=== PATIENT | male | born 1955 | race African-American/Black ===

== ENCOUNTER 2018-02-10 09:37 | Emergency (ER) | payer MEDICARE, MEDICAID ==
[~2018-02-10] VITALS: Ht 180.3 cm; Wt 81.6 kg
[2018-02-10 09:49] VITALS: BP 136/88
[2018-02-10 10:22] LABS: Eosinophils # (auto) 0 uL; Mean Corpuscular Volume 77.6 fL (80.0-100.0); Red Cell Distribution Width 17.9 % (11.8-14.3); White Blood Cell 4.2 10^3/uL (4.4-10.8)
[2018-02-10 10:24] LABS: Basophils # (auto) 0.2 uL; Basophils % (auto) 5.5 % (0.0-2.0); Eosinophils % (auto) 1.1 % (0.0-7.0); Hemoglobin 12.3 g/dL (13.5-17.5); Lymphocytes # (auto) 1.7 uL; Lymphocytes % (auto) 39.3 % (10.0-50.0); Mean Corpuscular Hemoglobin 24.5 pg (28.0-32.0); Mean Corpuscular Hgb Conc. 31.5 g/dL (32.0-36.0); Monocytes # (auto) 0.4 uL; Monocytes % (auto) 8.5 % (0.0-12.0); Neutrophils # (auto) 1.9 uL; Neutrophils % (auto) 45.6 % (37.0-80.0); Nucleated Red Blood Cells % 0.1 %; Platelet Count (auto) 222 10^3/uL (140-450); Red Blood Cells 5.02 10^6/uL (4.5-5.90)
[2018-02-10 10:44] LABS: Alanine Aminotransferase 32 U/L (16-61); Alkaline Phosphatase 141 U/L (45-117); Anion Gap 11 (5-15); Aspartate Aminotransferase 25 U/L (15-37); BUN/Creatinine Ratio 9.2; Bilirubin, Total 0.5 mg/dL (0.2-1.0); Blood Urea Nitrogen 13 mg/dL (7-18); Calcium 8.7 mg/dL (8.5-10.1); Carbon Dioxide 21 mmol/L (21-32); Chloride 104 mmol/L (98-107); GFR African American 65 mL/min; GFR Non-African American 54 mL/min; Glucose 254 mg/dL (74-106); Magnesium 1.9 mg/dL (1.6-2.6); Potassium 4.1 mmol/L (3.5-5.1); Sodium 136 mmol/L (136-145); Total Protein 8.1 g/dL (6.4-8.2)
== END 2018-02-10 15:03 | disposition left against medical advice (07) ==
LOC: ER 09:37
DX: M25.512 Pain in left shoulder (principal); E11.9 Type 2 diabetes mellitus without complications; I10 Essential (primary) hypertension; E78.5 Hyperlipidemia, unspecified
CPT/HCPCS: 36415; 71046; 80053; 83735; 84484; 85025; 93005

== ENCOUNTER 2018-02-28 09:48 | Inpatient (IN) | payer MEDICARE, MEDICAID ==
[~2018-02-28] VITALS: Ht 180.3 cm; Wt 96.7 kg
[2018-02-28 10:45] LABS: Basophils # (auto) 0 uL; Eosinophils # (auto) 0 uL; Eosinophils % (auto) 0.1 % (0.0-7.0); Red Cell Distribution Width 18.2 % (11.8-14.3)
[2018-02-28 10:49] LABS: Basophils % (auto) 0.3 % (0.0-2.0); Hematocrit 39.7 % (41.0-53.0); Hemoglobin 12.6 g/dL (13.5-17.5); Lymphocytes # (auto) 1.1 uL; Lymphocytes % (auto) 14.9 % (10.0-50.0); Mean Corpuscular Hemoglobin 24.6 pg (28.0-32.0); Mean Corpuscular Hgb Conc. 31.8 g/dL (32.0-36.0); Mean Corpuscular Volume 77.1 fL (80.0-100.0); Monocytes # (auto) 0.9 uL; Monocytes % (auto) 11.1 % (0.0-12.0); Neutrophils # (auto) 5.6 uL; Neutrophils % (auto) 73.6 % (37.0-80.0); Platelet Count (auto) 185 10^3/uL (140-450); Red Blood Cells 5.15 10^6/uL (4.5-5.90); White Blood Cell 7.7 10^3/uL (4.4-10.8)
[2018-02-28 11:09] LABS: Albumin 3.8 g/dL (3.4-5.0); BUN/Creatinine Ratio 12.7; Calcium 9.2 mg/dL (8.5-10.1); Potassium 4.5 mmol/L (3.5-5.1); Total Protein 8.5 g/dL (6.4-8.2)
[2018-02-28 11:11] LABS: Bilirubin, Total 0.3 mg/dL (0.2-1.0)
[2018-02-28] MEDS ORDERED: SODIUM CHLORIDE 0.9% 1,000 ML IV ONE (11:55)
[2018-02-28] MEDS ORDERED: HYDROcodone-ACET 10/325MG TAB PO ONE (12:00)
[2018-02-28] MEDS ORDERED: InsuLIN REG 1unit/0.01ml Soln (100units/ml) IV ONE (12:00)
[2018-02-28 12:27] LABS: INR 1.03 (0.9-1.15); Partial Thromboplastin Time 25.8 sec (22.64-33.71); Prothrombin Time 11.2 sec (9.37-12.3)
[2018-02-28] MEDS ORDERED: NITROGLYCERIN 0.4 MG SL TAB SL PRN (14:30)
[2018-02-28] MEDS ORDERED: DEXTROSE (50%) 50ML SYRG IV PRN (14:30)
[2018-02-28] MEDS ORDERED: LORazepam 0.5 MG TAB PO PRN (14:30)
[2018-02-28] MEDS ORDERED: MORPHINE SULFATE 4 MG/ML SYR/VIAL IV PRN ×2 (14:30)
[2018-02-28] MEDS ORDERED: PANTOPRAZOLE 40 MG TAB PO ONE (14:30)
[2018-02-28] MEDS ORDERED: TEMAZEPAM 15 MG CAP PO PRN (14:30)
[2018-02-28] MEDS ORDERED: LACTULOSE 20Gm/30ML SOLN PO PRN (14:30)
[2018-02-28] MEDS ORDERED: PROMETHAZINE HCL 25 MG/ML 1ML IV PRN (14:30)
[2018-02-28] MEDS ORDERED: ACETAMINOPHEN 500 MG TAB PO PRN (14:30)
[2018-02-28] MEDS: HYDROcodone-ACET 5/325MG TAB PO PRN (16:27)
[2018-02-28] MEDS: InsuLIN REG 1unit/0.01ml Soln (100units/ml) SC SCH ×3 (16:28→23:59)
[2018-02-28] MEDS: ACCU-CHEK COMFORT CURVE STRIP VI SCH ×3 (16:28→23:59)
[2018-02-28 17:00] VITALS: BP 145/77
[2018-02-28 22:00] VITALS: BP 131/85
[2018-03-01 02:42] LABS: Urine Bacteria NONE SEEN /hpf (None Seen); Urine Blood Negative /uL (Negative); Urine Specific Gravity 1.027 (1.001-1.035); Urine WBC <1 /hpf (0 - 3)
[2018-03-01] MEDS: InsuLIN REG 1unit/0.01ml Soln (100units/ml) SC SCH ×3 (04:12→12:19)
[2018-03-01] MEDS: SODIUM CHLORIDE 0.9% 1,000 ML IV SCH ×3 (04:12→10:19)
[2018-03-01] MEDS: ACCU-CHEK COMFORT CURVE STRIP VI SCH ×3 (04:12→12:00)
[2018-03-01 05:00] VITALS: BP 122/80
[2018-03-01] MEDS: HYDROcodone-ACET 5/325MG TAB PO PRN (06:14)
[2018-03-01 07:17] LABS: BUN/Creatinine Ratio 16.3; Bilirubin, Total 0.2 mg/dL (0.2-1.0); Calcium 8.4 mg/dL (8.5-10.1); Potassium 4.1 mmol/L (3.5-5.1)
[2018-03-01 09:00] VITALS: BP 132/90
[2018-03-01] MEDS ORDERED: PANTOPRAZOLE 40 MG TAB PO SCH (10:00)
[2018-03-01] MEDS ORDERED: ENOXAPARIN SOD 40 MG/0.4 ML SYRINGE SC SCH (10:00)
[2018-03-01 13:00] VITALS: BP 126/88
== END 2018-03-01 14:20 | disposition home or self-care (01) | DRG 896 ==
LOC: ER 09:50 → TELE 09:51 → TELE-CENTR 09:52
PROVIDERS: ADMIT Internal Medicine; ATTEND Internal Medicine
DX: F11.23 Opioid dependence with withdrawal (principal); N17.0 Acute kidney failure with tubular necrosis; E44.0 Moderate protein-calorie malnutrition; E11.65 Type 2 diabetes mellitus with hyperglycemia; E66.3 Overweight; D17.9 Benign lipomatous neoplasm, unspecified; K59.00 Constipation, unspecified; E86.0 Dehydration; F41.9 Anxiety disorder, unspecified; G47.00 Insomnia, unspecified; E78.5 Hyperlipidemia, unspecified; M25.512 Pain in left shoulder; I10 Essential (primary) hypertension; Z68.29 Body mass index [BMI] 29.0-29.9, adult; Z82.49 Family history of ischemic heart disease and other diseases of the circulatory system; Z87.11 Personal history of peptic ulcer disease; Z91.19 Patient's noncompliance with other medical treatment and regimen; Z90.79 Acquired absence of other genital organ(s)
CPT/HCPCS: 36415; 71045; 80053; 80061; 81001; 82962; 83036; 83735; 85025; 85610; 85652; 85730; 93005; 94761; 96361; 96374; J1815

== ENCOUNTER 2021-04-12 08:56 | Emergency (ER) | payer MEDICARE, MEDICAID ==
[~2021-04-12] VITALS: Ht 180.3 cm; Wt 94.8 kg
[2021-04-12] MEDS ORDERED: ONDANSETRON ODT 4 MG TAB PO ONE (11:45)
[2021-04-12] MEDS ORDERED: HYDROcodone-ACET 7.5/325MG TAB PO ONE (11:45)
[2021-04-12 12:12] VITALS: BP 111/79
[2021-04-12 12:23] LABS: Basophils # (auto) 0 10 ^3/uL (0-0.2); Basophils % (auto) 0.4 % (0.0-2.0); Eosinophils # (auto) 0 10 ^3/uL (0-0.8); Eosinophils % (auto) 0.4 % (0.0-7.0); Hematocrit 31.8 % (41.0-53.0); Hemoglobin 10.9 g/dL (13.5-17.5); Lymphocytes % (auto) 36.7 % (10.0-50.0); Mean Corpuscular Hemoglobin 30.2 pg (28.0-32.0); Mean Corpuscular Hgb Conc. 34.2 g/dL (32.0-36.0); Mean Corpuscular Volume 88.3 fL (80.0-100.0); Monocytes # (auto) 0.5 10 ^3/uL (0-1.3); Monocytes % (auto) 9.5 % (0.0-12.0); Neutrophils # (auto) 2.9 10 ^3/uL (1.6-8.6); Nucleated Red Blood Cells % 0.1 %; Platelet Count (auto) 149 10^3/uL (140-450); Red Cell Distribution Width 13.8 % (11.8-14.3); White Blood Cell 5.4 10^3/uL (4.4-10.8)
[2021-04-12 12:34] LABS: Albumin 3.6 g/dL (3.4-5.0); Anion Gap 10 (5-15); Blood Urea Nitrogen 18 mg/dL (7-18); Calcium 8.5 mg/dL (8.5-10.1); Carbon Dioxide 22 mmol/L (21-32); Chloride 105 mmol/L (98-107); Glucose 158 mg/dL (74-106); Sodium 137 mmol/L (136-145)
[2021-04-12 12:37] LABS: Alanine Aminotransferase 21 U/L (16-61); Aspartate Aminotransferase 31 U/L (15-37); BUN/Creatinine Ratio 15.9; GFR African American 84 mL/min; GFR Non-African American 69 mL/min; Total Protein 7.4 g/dL (6.4-8.2)
[2021-04-12 12:40] LABS: Alkaline Phosphatase 51 U/L (45-117); Bilirubin, Total 0.4 mg/dL (0.2-1.0)
== END 2021-04-12 13:19 | disposition home or self-care (01) ==
LOC: ER 08:56
DX: J18.9 Pneumonia, unspecified organism (principal); E11.65 Type 2 diabetes mellitus with hyperglycemia; E78.5 Hyperlipidemia, unspecified
CPT/HCPCS: 36415; 70450; 71045; 80053; 83880; 84484; 85025; 93005; 99285; Q0162

== ENCOUNTER 2022-09-30 04:51 | Inpatient (IN) | payer BC, MEDICAID ==
[~2022-09-30] VITALS: Ht 172.7 cm; Wt 93.8 kg
[2022-09-30] MEDS ORDERED: SODIUM CHLORIDE 0.9% 2,000 ML IV ONE (05:30)
[2022-09-30] MEDS ORDERED: SODIUM CHLORIDE 0.9% 1,000 ML IV ONE (07:30)
[2022-09-30 07:56] LABS: Albumin 3.3 g/dL (3.4-5.0); Calcium 9.2 mg/dL (8.5-10.1)
[2022-09-30 07:59] LABS: BUN/Creatinine Ratio 17.4; Bilirubin, Total 0.3 mg/dL (0.2-1.0)
[2022-09-30 08:05] LABS: Basophils # (auto) 0 10 ^3/uL (0-0.2); Basophils % (auto) 0.5 % (0.0-2.0); Eosinophils # (auto) 0 10 ^3/uL (0-0.8); Eosinophils % (auto) 0.1 % (0.0-7.0); Hematocrit 32.8 % (41.0-53.0); Hemoglobin 10.3 g/dL (13.5-17.5); Lymphocytes # (auto) 1.2 10 ^3/uL (0.4-5.4); Lymphocytes % (auto) 14.3 % (10.0-50.0); Mean Corpuscular Hemoglobin 23.1 pg (28.0-32.0); Mean Corpuscular Hgb Conc. 31.5 g/dL (32.0-36.0); Mean Corpuscular Volume 73.5 fL (80.0-100.0); Monocytes # (auto) 0.5 10 ^3/uL (0-1.3); Monocytes % (auto) 5.3 % (0.0-12.0); Neutrophils # (auto) 6.9 10 ^3/uL (1.6-8.6); Neutrophils % (auto) 79.8 % (37.0-80.0); Red Blood Cells 4.46 10^6/uL (4.5-5.90); Red Cell Distribution Width 18.4 % (11.8-14.3); White Blood Cell 8.7 10^3/uL (4.4-10.8)
[2022-09-30] MEDS ORDERED: INSULIN LISPRO (HUMAN) 100 UNITS/ML ML SC ONE (12:00)
[2022-09-30] MEDS ORDERED: MORPHINE SULFATE INJ 2 MG/ml SYRG IV PRN (13:15)
[2022-09-30] MEDS ORDERED: DOCUSATE SOD 100 MG CAP PO PRN (13:15)
[2022-09-30] MEDS ORDERED: DEXTROSE (50%) 50ML SYRG IV PRN (13:15)
[2022-09-30] MEDS ORDERED: ONDANSETRON HCL 4 MG/2 ML VIAL IV PRN (13:15)
[2022-09-30] MEDS ORDERED: ACETAMINOPHEN 325 MG TAB PO PRN (13:15)
[2022-09-30] MEDS ORDERED: NITROGLYCERIN 0.4 MG SL TAB SL PRN (13:15)
[2022-09-30] MEDS: SODIUM CHLORIDE 0.9% 1,000 ML IV SCH (13:42)
[2022-09-30 15:08] LABS: Hematocrit 32.4 % (41.0-53.0); Hemoglobin 10.1 g/dL (13.5-17.5)
[2022-09-30 15:21] LABS: INR 1.03 (0.9-1.15); Partial Thromboplastin Time 22.1 sec (24.6-33.4)
[2022-09-30] MEDS: InsuLIN REG 1unit/0.01ml Soln (100units/ml) SC SCH (17:34)
[2022-09-30] MEDS: ACCU-CHEK COMFORT CURVE STRIP VI SCH (17:34)
[2022-09-30] MEDS: SUCRALFATE 1 GM/10 ML ORAL SUSP PO SCH ×2 (17:34→21:32)
[2022-09-30] MEDS: HYDROcodone-ACET 5/325MG TAB PO PRN (21:13)
[2022-09-30] MEDS ORDERED: PANTOPRAZOLE 40 MG/10 ML VIAL INJ IV SCH (22:00)
[2022-09-30] MEDS ORDERED: METF-371 PO (22:05)
[2022-09-30] MEDS ORDERED: BENA40TA8 PO (22:05)
[2022-09-30] MEDS ORDERED: AMLO-496 PO (22:05)
[2022-09-30 23:09] VITALS: BP 129/82
[2022-10-01] MEDS: SODIUM CHLORIDE 0.9% 1,000 ML IV SCH ×2 (02:35→15:52)
[2022-10-01] MEDS: SUCRALFATE 1 GM/10 ML ORAL SUSP PO SCH (04:49)
[2022-10-01] MEDS: ACCU-CHEK COMFORT CURVE STRIP VI SCH ×5 (04:52→23:49)
[2022-10-01] MEDS: InsuLIN REG 1unit/0.01ml Soln (100units/ml) SC SCH ×5 (04:55→23:55)
[2022-10-01 07:37] LABS: Basophils # (auto) 0 10 ^3/uL (0-0.2); Eosinophils # (auto) 0 10 ^3/uL (0-0.8); Eosinophils % (auto) 0.2 % (0.0-7.0); Lymphocytes # (auto) 2.3 10 ^3/uL (0.4-5.4); Red Cell Distribution Width 18.6 % (11.8-14.3); White Blood Cell 6.6 10^3/uL (4.4-10.8)
[2022-10-01 07:39] LABS: Basophils % (auto) 0.3 % (0.0-2.0); Hematocrit 29.2 % (41.0-53.0); Hemoglobin 9.1 g/dL (13.5-17.5); Lymphocytes % (auto) 35.3 % (10.0-50.0); Mean Corpuscular Hgb Conc. 31.2 g/dL (32.0-36.0); Mean Corpuscular Volume 73.9 fL (80.0-100.0); Monocytes # (auto) 0.6 10 ^3/uL (0-1.3); Monocytes % (auto) 9.8 % (0.0-12.0); Neutrophils # (auto) 3.6 10 ^3/uL (1.6-8.6); Neutrophils % (auto) 54.4 % (37.0-80.0); Nucleated Red Blood Cells % 0.1 %; Red Blood Cells 3.95 10^6/uL (4.5-5.90)
[2022-10-01 08:00] VITALS: BP 121/86
[2022-10-01 09:33] LABS: Albumin 3.1 g/dL (3.4-5.0); Calcium 8.6 mg/dL (8.5-10.1); Potassium 3.9 mmol/L (3.5-5.1)
[2022-10-01 09:42] LABS: BUN/Creatinine Ratio 16.3; Bilirubin, Total 0.2 mg/dL (0.2-1.0); Total Protein 6.8 g/dL (6.4-8.2)
[2022-10-01] MEDS ORDERED: SODIUM CHLORIDE LOCK 10 ML ONE (10:03)
[2022-10-01] MEDS ORDERED: NALOXONE HCL 0.4 MG/ML VIAL ONE (10:03)
[2022-10-01] MEDS ORDERED: diphenhdrAMINE HCL 50 MG/1 ML VL ONE (10:03)
[2022-10-01] MEDS ORDERED: FLUMAZENIL 0.1 MG/ML INJ 10ML MDV IV ONE (10:03)
[2022-10-01] MEDS ORDERED: LIDOCAINE VISCOUS 2% 15ML UD ONE (10:03)
[2022-10-01] MEDS: MIDAZOLAM HCL 5 MG/ML-1ML VIAL ONE ×2 (10:42→10:46)
[2022-10-01] MEDS: fentaNYL CITRATE 100 MCG/2 ML VL ONE ×2 (10:42→10:46)
[2022-10-01 13:24] VITALS: BP 138/87
[2022-10-01 17:00] VITALS: BP 135/84
[2022-10-01 20:00] VITALS: BP 149/85
[2022-10-01] MEDS: PANTOPRAZOLE 40 MG TAB PO SCH (21:15)
[2022-10-01] MEDS: HYDROcodone-ACET 5/325MG TAB PO PRN (21:21)
[2022-10-01 22:00] VITALS: BP 149/85
[2022-10-02 05:00] VITALS: BP 143/92
[2022-10-02] MEDS: SODIUM CHLORIDE 0.9% 1,000 ML IV SCH ×2 (05:15→08:13)
[2022-10-02] MEDS: ACCU-CHEK COMFORT CURVE STRIP VI SCH ×2 (06:00→11:48)
[2022-10-02] MEDS: InsuLIN REG 1unit/0.01ml Soln (100units/ml) SC SCH ×2 (06:01→11:51)
[2022-10-02 09:00] VITALS: BP 134/89
[2022-10-02] MEDS: PANTOPRAZOLE 40 MG TAB PO SCH (09:44)
[2022-10-02] MEDS ORDERED: PANT40T PO (12:21)
[2022-10-02] MEDS ORDERED: FERR-7 PO (12:21)
[2022-10-02 12:43] VITALS: BP 131/85
== END 2022-10-02 15:10 | disposition home or self-care (01) | DRG 368 ==
LOC: EDBD 04:51 → EDUNIT# 04:51 → ER 04:51 → TELE 13:08 → TELE-WESTW 22:29
PROVIDERS: ADMIT Nurse Practitioner Family; ATTEND Family Medicine
PROC: 0DJ08ZZ Inspection of Upper Intestinal Tract, Via Natural or Artificial Opening Endoscopic (ICD-10-PCS; principal; 2022-10-01 10:40)
DX: K20.91 Esophagitis, unspecified with bleeding (principal); K29.71 Gastritis, unspecified, with bleeding; K31.811 Angiodysplasia of stomach and duodenum with bleeding; D62 Acute posthemorrhagic anemia; E44.1 Mild protein-calorie malnutrition; E86.1 Hypovolemia; K44.9 Diaphragmatic hernia without obstruction or gangrene; E11.9 Type 2 diabetes mellitus without complications; E78.00 Pure hypercholesterolemia, unspecified; I10 Essential (primary) hypertension; I95.9 Hypotension, unspecified; E66.01 Morbid (severe) obesity due to excess calories; Z20.822 Contact with and (suspected) exposure to COVID-19; Z68.31 Body mass index [BMI] 31.0-31.9, adult; Z82.3 Family history of stroke; Z82.49 Family history of ischemic heart disease and other diseases of the circulatory system; Z79.84 Long term (current) use of oral hypoglycemic drugs
CPT/HCPCS: 36415; 43235; 71045; 74176; 80053; 82962; 83036; 83690; 83735; 84484; 85014; 85018; 85025; 85610; 85730; 86850; 86900; 86901; 87426; 93005; 96361; 96372; 96374; 96375; C9113; G0378; J1815; J2250; J2405

== ENCOUNTER 2023-08-03 08:49 | Inpatient (IN) | payer BC, MEDICAID ==
[~2023-08-03] VITALS: Ht 180.3 cm; Wt 92.9 kg
[~2023-08-03 08:49] MED LIST: AMLO1TAB23 PO; BENA40TA70 PO; FERR-7 PO; METF-371 PO; PANT40T PO
[2023-08-03 09:46] LABS: Basophils # (auto) 0 10 ^3/uL (0-0.2); Eosinophils # (auto) 0 10 ^3/uL (0-0.8); Nucleated Red Blood Cells % 0.1 %
[2023-08-03 09:47] LABS: Basophils % (auto) 0.2 % (0.0-2.0); Eosinophils % (auto) 0.1 % (0.0-7.0); Hematocrit 33.7 % (41.0-53.0); Hemoglobin 10.3 g/dL (13.5-17.5); Lymphocytes # (auto) 1.3 10 ^3/uL (0.4-5.4); Mean Corpuscular Hgb Conc. 30.7 g/dL (32.0-36.0); Mean Corpuscular Volume 81.3 fL (80.0-100.0); Monocytes # (auto) 0.4 10 ^3/uL (0-1.3); Monocytes % (auto) 4.8 % (0.0-12.0); Neutrophils # (auto) 6.8 10 ^3/uL (1.6-8.6); Neutrophils % (auto) 79.9 % (37.0-80.0); Red Blood Cells 4.14 10^6/uL (4.5-5.90); Red Cell Distribution Width 18.2 % (11.8-14.3); White Blood Cell 8.5 10^3/uL (4.4-10.8)
[2023-08-03] MEDS ORDERED: LABETALOL HCL 5 MG/ML 4ML SYRINGE IV ONE (10:00)
[2023-08-03 10:03] LABS: Alanine Aminotransferase 19 U/L (7-40); Albumin 4.2 g/dL (3.2-4.8); Alkaline Phosphatase 79 U/L (46-116); Anion Gap 8 (5-15); Aspartate Aminotransferase 14 U/L (13-40); Blood Urea Nitrogen 24 mg/dL (9-23); Calcium 9.2 mg/dL (8.5-10.1); Carbon Dioxide 24 mmol/L (20-30); Chloride 107 mmol/L (98-107); Glucose 279 mg/dL (74-106); Potassium 4.6 mmol/L (3.5-5.1); Sodium 139 mmol/L (136-145)
[2023-08-03 10:04] LABS: Bilirubin, Total 0.4 mg/dL (0.2-1.0); Total Protein 7.4 g/dL (5.7-8.2)
[2023-08-03 10:47] VITALS: PULSE 108; RESP 23; O2SAT 97
[2023-08-03 11:28] LABS: INR 1.08 (0.9-1.15); Partial Thromboplastin Time < 20.0 SEC (24.5-34.5); Prothrombin Time 11.3 sec (9.3-11.8)
[2023-08-03] MEDS ORDERED: ONDANSETRON HCL 4 MG/2 ML VIAL IV PRN (12:00)
[2023-08-03] MEDS ORDERED: hydrALAZINE HCL 20 MG/ML VL IV PRN (12:00)
[2023-08-03] MEDS: SODIUM CHLORIDE 0.9% 1,000 ML IV SCH ×2 (12:00→21:53)
[2023-08-03] MEDS ORDERED: DOCUSATE SOD 100 MG CAP PO PRN (12:00)
[2023-08-03] MEDS: MORPHINE SULFATE INJ 2 MG/ml SYRG IV PRN ×2 (14:31→21:38)
[2023-08-03] MEDS ORDERED: METOCLOPRAMIDE HCL 5MG/ml INJ 2ml VIAL IV PRN (16:15)
[2023-08-03] MEDS: PANTOPRAZOLE 40mg/50ML NS AE 50 ML IV SCH ×2 (16:15→21:39)
[2023-08-03] MEDS ORDERED: PANTOPRAZOLE 40mg/50ML NS AE 50 ML IV SCH (16:15)
[2023-08-03] MEDS ORDERED: PANTOPRAZOLE 80 MG in SODIUM CHL 0.9% 100 ML IV ONE ×4 (16:15)
[2023-08-03] MEDS ORDERED: LORazepam 2MG/ML-1ML VIAL IV PRN (16:45)
[2023-08-03 18:42] LABS: Hematocrit 25.6 % (41.0-53.0)
[2023-08-03] MEDS ORDERED: PIPERACILLIN-TAZOB 3.375GM 100 ML IV ONE (20:00)
[2023-08-03] MEDS ORDERED: PIPERACILLIN-TAZOB 3.375GM 100 ML IV SCH (20:00)
[2023-08-03 20:23] LABS: Hematocrit 30.7 % (41.0-53.0); Hemoglobin 9.6 g/dL (13.5-17.5)
[2023-08-03] MEDS ORDERED: PANTOPRAZOLE 40 MG/10 ML VIAL INJ IV SCH (22:00)
[2023-08-03 22:11] LABS: % Iron Saturation 6.8 % (20-55)
[2023-08-03 22:13] LABS: INR 1.11 (0.9-1.15); Prothrombin Time 11.6 sec (9.3-11.8)
[2023-08-03 22:15] LABS: Ferritin 5.7 ng/mL (22-322); Folate (Folic Acid) 12.86 ng/mL (>5.38)
[2023-08-03 23:24] VITALS: PULSE 105; RESP 21; O2SAT 96
[2023-08-04] VITALS (8 sets, daily range): BP systolic 119–129; BP diastolic 72–83; PULSE 93–104; RESP 18–20; TEMP 97.5–98.4; O2SAT 95–98
[2023-08-04 00:36] LABS: Hemoglobin 8.8 g/dL (13.5-17.5)
[2023-08-04 00:38] LABS: Hematocrit 27.7 % (41.0-53.0)
[2023-08-04] MEDS ORDERED: DEXTROSE (50%) 50ML SYRG IV ONE (02:45)
[2023-08-04 03:23] LABS: Hematocrit 26.4 % (41.0-53.0); Hemoglobin 8.5 g/dL (13.5-17.5)
[2023-08-04] MEDS: PANTOPRAZOLE 40mg/50ML NS AE 50 ML IV SCH ×6 (03:24→22:29)
[2023-08-04] MEDS ORDERED: PNEUMOCOCCAL VACC POLYS 25 MCG/0.5 ML VIAL IM ONE (04:45)
[2023-08-04] MEDS: SODIUM CHLORIDE 0.9% 1,000 ML IV SCH ×3 (04:48→21:11)
[2023-08-04] MEDS: PIPERACILLIN-TAZOB 3.375GM 100 ML IV SCH ×3 (04:48→19:36)
[2023-08-04] MEDS ORDERED: InsuLIN REG 1unit/0.01ml Soln (100units/ml) SC ONE (07:00)
[2023-08-04] MEDS ORDERED: ACCU-CHEK COMFORT CURVE STRIP VI ONE (07:00)
[2023-08-04 10:53] LABS: Basophils # (auto) 0 10 ^3/uL (0-0.2); Eosinophils # (auto) 0 10 ^3/uL (0-0.8); Mean Corpuscular Hemoglobin 24.5 pg (28.0-32.0); Nucleated Red Blood Cells % 0.1 %; White Blood Cell 6.4 10^3/uL (4.4-10.8)
[2023-08-04 10:55] LABS: Basophils % (auto) 0.4 % (0.0-2.0); Eosinophils % (auto) 0.5 % (0.0-7.0); Hematocrit 26.8 % (41.0-53.0); Hemoglobin 8.4 g/dL (13.5-17.5); Lymphocytes # (auto) 1.8 10 ^3/uL (0.4-5.4); Lymphocytes % (auto) 28.3 % (10.0-50.0); Mean Corpuscular Hgb Conc. 31.5 g/dL (32.0-36.0); Mean Corpuscular Volume 77.8 fL (80.0-100.0); Monocytes # (auto) 0.8 10 ^3/uL (0-1.3); Monocytes % (auto) 11.8 % (0.0-12.0); Neutrophils # (auto) 3.8 10 ^3/uL (1.6-8.6); Red Blood Cells 3.45 10^6/uL (4.5-5.90); Red Cell Distribution Width 18.6 % (11.8-14.3)
[2023-08-04 11:10] LABS: Alanine Aminotransferase 11 U/L (7-40); Albumin 3.9 g/dL (3.2-4.8); Alkaline Phosphatase 56 U/L (46-116); Anion Gap 5 (5-15); Aspartate Aminotransferase 16 U/L (13-40); BUN/Creatinine Ratio 20.9 (10.0-20.0); Bilirubin, Total 0.3 mg/dL (0.2-1.0); Blood Urea Nitrogen 33 mg/dL (9-23); Calcium 8.7 mg/dL (8.7-10.4); Carbon Dioxide 28 mmol/L (20-30); Chloride 112 mmol/L (98-107); Glucose 217 mg/dL (74-106); Potassium 4.4 mmol/L (3.5-5.1); Total Protein 6.5 g/dL (5.7-8.2)
[2023-08-04 11:11] LABS: Sodium 145 mmol/L (136-145)
[2023-08-04 22:00] LABS: Hematocrit 24.8 % (41.0-53.0)
[2023-08-04 22:01] LABS: Hemoglobin 7.9 g/dL (13.5-17.5)
[2023-08-04] MEDS: SUCRALFATE 1 GM/10 ML ORAL SUSP PO SCH (22:28)
[2023-08-05] VITALS (7 sets, daily range): BP systolic 125–148; BP diastolic 74–84; PULSE 74–100; RESP 16–20; TEMP 98.3–98.8; O2SAT 96–100
[2023-08-05] MEDS: PANTOPRAZOLE 40mg/50ML NS AE 50 ML IV SCH ×5 (01:48→23:32)
[2023-08-05] MEDS: PIPERACILLIN-TAZOB 3.375GM 100 ML IV SCH ×3 (03:05→19:49)
[2023-08-05] MEDS: SODIUM CHLORIDE 0.9% 1,000 ML IV SCH ×3 (05:40→22:20)
[2023-08-05] MEDS: SUCRALFATE 1 GM/10 ML ORAL SUSP PO SCH ×4 (06:24→21:37)
[2023-08-05] MEDS ORDERED: IRON SUCROSE COMPLEX 200 MG in SODIUM CHL 0.9% 100 ML IV SCH (12:00)
[2023-08-05] MEDS: SODIUM FERR GLUC 62.5MG/5ML 125 MG in SODIUM CHL 0.9% 100 ML IV SCH (12:55)
[2023-08-05] MEDS: MORPHINE SULFATE INJ 2 MG/ml SYRG IV PRN (20:44)
[2023-08-05] MEDS ORDERED: ACETAMINOPHEN 325 MG TAB PO PRN (21:30)
[2023-08-06] VITALS (8 sets, daily range): BP systolic 137–175; BP diastolic 54–93; PULSE 81–108; RESP 17–28; TEMP 98.4–99.7; O2SAT 93–98
[2023-08-06] MEDS: PIPERACILLIN-TAZOB 3.375GM 100 ML IV SCH ×2 (03:56→11:58)
[2023-08-06] MEDS: PANTOPRAZOLE 40mg/50ML NS AE 50 ML IV SCH ×4 (03:56→20:39)
[2023-08-06] MEDS: SUCRALFATE 1 GM/10 ML ORAL SUSP PO SCH ×4 (05:46→21:15)
[2023-08-06] MEDS: SODIUM CHLORIDE 0.9% 1,000 ML IV SCH ×3 (06:55→23:44)
[2023-08-06] MEDS ORDERED: LIDOCAINE VISCOUS 2% 15ML UD ONE (08:09)
[2023-08-06] MEDS ORDERED: SODIUM CHLORIDE LOCK 10 ML ONE (08:09)
[2023-08-06] MEDS ORDERED: MIDAZOLAM HCL 5 MG/ML-1ML VIAL ONE (08:10)
[2023-08-06 09:07] LABS: Hepatitis B Surface Antigen Negative (Negative)
[2023-08-06] MEDS: diphenhdrAMINE HCL 50 MG/1 ML VL ONE ×2 (10:31→10:33)
[2023-08-06] MEDS: fentaNYL CITRATE 100 MCG/2 ML VL ONE ×2 (10:31→10:35)
[2023-08-06] MEDS ORDERED: CYANOCOBALAMIN (B-12) 1000 MCG/1 ML VIAL IM ONE (11:45)
[2023-08-06] MEDS: SODIUM FERR GLUC 62.5MG/5ML 125 MG in SODIUM CHL 0.9% 100 ML IV SCH (12:43)
[2023-08-06 12:47] LABS: Hepatitis C Antibody Reactive (Negative)
[2023-08-06 15:01] LABS: Urine Bacteria NONE SEEN /hpf (None Seen); Urine Blood Negative /uL (Negative); Urine Clarity Clear (Clear); Urine Color Colorless (Yellow); Urine Hyaline Cast FEW /lpf (0 - 2); Urine Protein, UAD 1+ (Negative); Urine Specific Gravity 1.014 (1.001-1.035); Urine Urobilinogen Normal (Negative); Urine WBC <1 /hpf (0 - 3)
[2023-08-06 15:38] LABS: Amphetamine Screen, Urine Neg (NEGATIVE); Barbiturate Scree,Urine Neg (NEGATIVE); Benzodiazephine Screen, Urine Pos (NEGATIVE); Cannabinoid Screen, Urine Neg (NEGATIVE); Cocaine Screen, Urine Neg (NEGATIVE); Opiate Scree,Urine Neg (NEGATIVE); Phencyclidine Screen, Urine Neg (NEGATIVE)
[2023-08-07] MEDS: PANTOPRAZOLE 40mg/50ML NS AE 50 ML IV SCH ×2 (01:01→05:19)
[2023-08-07 05:00] VITALS: BP 142/84; PULSE 91; RESP 20; TEMP 98.6; O2SAT 98
[2023-08-07] MEDS: SUCRALFATE 1 GM/10 ML ORAL SUSP PO SCH ×4 (06:02→21:22)
[2023-08-07 06:09] LABS: Basophils # (auto) 0 10 ^3/uL (0-0.2); Basophils % (auto) 0.1 % (0.0-2.0); Eosinophils # (auto) 0 10 ^3/uL (0-0.8); Eosinophils % (auto) 0.1 % (0.0-7.0); Hematocrit 24.1 % (41.0-53.0); Hemoglobin 7.6 g/dL (13.5-17.5); Lymphocytes # (auto) 1.8 10 ^3/uL (0.4-5.4); Lymphocytes % (auto) 19.8 % (10.0-50.0); Mean Corpuscular Hemoglobin 24.8 pg (28.0-32.0); Mean Corpuscular Hgb Conc. 31.6 g/dL (32.0-36.0); Mean Corpuscular Volume 78.7 fL (80.0-100.0); Monocytes # (auto) 0.7 10 ^3/uL (0-1.3); Monocytes % (auto) 8.1 % (0.0-12.0); Neutrophils # (auto) 6.5 10 ^3/uL (1.6-8.6); Neutrophils % (auto) 71.9 % (37.0-80.0); Nucleated Red Blood Cells % 0.1 %; Red Blood Cells 3.07 10^6/uL (4.5-5.90); Red Cell Distribution Width 17.8 % (11.8-14.3)
[2023-08-07 06:12] LABS: Alanine Aminotransferase 12 U/L (7-40); Albumin 3.6 g/dL (3.2-4.8); Alkaline Phosphatase 55 U/L (46-116); Anion Gap 6 (5-15); Aspartate Aminotransferase 28 U/L (13-40); BUN/Creatinine Ratio 4.9 (10.0-20.0); Blood Urea Nitrogen 6 mg/dL (9-23); Calcium 8.3 mg/dL (8.7-10.4); Carbon Dioxide 21 mmol/L (20-30); Chloride 112 mmol/L (98-107); Glucose 147 mg/dL (74-106); Magnesium 1.5 mg/dL (1.6-2.6); Potassium 3.6 mmol/L (3.5-5.1); Sodium 139 mmol/L (136-145)
[2023-08-07 06:13] LABS: Bilirubin, Total 0.4 mg/dL (0.2-1.0)
[2023-08-07 06:48] LABS: Triglycerides 81 mg/dL (< 150)
[2023-08-07 06:49] LABS: LDL Cholesterol 70 mg/dL (< 100)
[2023-08-07 06:51] LABS: Cholesterol 121 mg/dL (< 200); HDL Cholesterol 34 mg/dL (40-59)
[2023-08-07] MEDS ORDERED: MAGNESIUM SULFATE 1GM/100ML 100 ML IV ONE (07:30)
[2023-08-07] MEDS ORDERED: POTASSIUM EFFERVESENT TAB 25 MEQ PO ONE (07:30)
[2023-08-07 08:00] VITALS: PULSE 82; PULSE 94; RESP 20; O2SAT 97
[2023-08-07] MEDS: SODIUM CHLORIDE 0.9% 1,000 ML IV SCH ×2 (08:44→12:04)
[2023-08-07 09:00] VITALS: BP 146/80; PULSE 80; RESP 20; TEMP 98.6; O2SAT 99
[2023-08-07] MEDS ORDERED: amLODIPine BESYLATE 5 MG TAB PO SCH (10:00)
[2023-08-07] MEDS ORDERED: ERGOCALCIFEROL 50,000 UNIT(1.25MG) CAP PO SCH (10:00)
[2023-08-07] MEDS: MORPHINE SULFATE INJ 2 MG/ml SYRG IV PRN (10:01)
[2023-08-07] MEDS: PANTOPRAZOLE 40 MG TAB PO SCH (10:02)
[2023-08-07] MEDS ORDERED: GOLYTELY 4L KIT PO ONE (12:45)
[2023-08-07] MEDS: SODIUM FERR GLUC 62.5MG/5ML 125 MG in SODIUM CHL 0.9% 100 ML IV SCH (12:52)
[2023-08-07 13:00] VITALS: BP 154/86; PULSE 94; RESP 20; TEMP 98.5; O2SAT 97
[2023-08-07 17:00] VITALS: BP 158/86; PULSE 79; RESP 18; TEMP 98.2; O2SAT 99
[2023-08-07 20:00] VITALS: PULSE 96; RESP 18; O2SAT 98
[2023-08-07] MEDS ORDERED: POLYETHYLENE GLYCOL 17 GM PWDR PO ONE (21:15)
[2023-08-08] MEDS: SODIUM CHLORIDE 0.9% 1,000 ML IV SCH (04:37)
[2023-08-08 05:27] LABS: Basophils # (auto) 0 10 ^3/uL (0-0.2); Basophils % (auto) 0.5 % (0.0-2.0); Eosinophils # (auto) 0.1 10 ^3/uL (0-0.8); Eosinophils % (auto) 1.3 % (0.0-7.0); Hematocrit 23.4 % (41.0-53.0); Hemoglobin 7.4 g/dL (13.5-17.5); Lymphocytes # (auto) 1.8 10 ^3/uL (0.4-5.4); Lymphocytes % (auto) 30.2 % (10.0-50.0); Mean Corpuscular Hemoglobin 25.1 pg (28.0-32.0); Mean Corpuscular Hgb Conc. 31.8 g/dL (32.0-36.0); Monocytes # (auto) 0.6 10 ^3/uL (0-1.3); Monocytes % (auto) 10.2 % (0.0-12.0); Neutrophils # (auto) 3.4 10 ^3/uL (1.6-8.6); Neutrophils % (auto) 57.8 % (37.0-80.0); Nucleated Red Blood Cells % 0.2 %; Red Blood Cells 2.96 10^6/uL (4.5-5.90); Red Cell Distribution Width 17.8 % (11.8-14.3); White Blood Cell 5.9 10^3/uL (4.4-10.8)
[2023-08-08 05:34] LABS: Anion Gap 9 (5-15); Carbon Dioxide 21 mmol/L (20-30); Chloride 109 mmol/L (98-107); Potassium 3.7 mmol/L (3.5-5.1); Sodium 139 mmol/L (136-145)
[2023-08-08 05:35] LABS: Calcium 8.5 mg/dL (8.5-10.1)
[2023-08-08 05:39] LABS: Glucose 130 mg/dL (74-106)
[2023-08-08 05:40] LABS: BUN/Creatinine Ratio 5.4 (10.0-20.0); Blood Urea Nitrogen 6 mg/dL (9-23)
[2023-08-08] MEDS: SUCRALFATE 1 GM/10 ML ORAL SUSP PO SCH ×4 (06:12→21:19)
[2023-08-08 06:51] LABS: Magnesium 1.6 mg/dL (1.6-2.6)
[2023-08-08] MEDS ORDERED: POLYETHYLENE GLYCOL 17 GM PWDR PO ONE (07:00)
[2023-08-08 08:00] VITALS: PULSE 81; RESP 20; O2SAT 97
[2023-08-08 09:00] VITALS: BP 167/93; PULSE 81; RESP 20; TEMP 98.7; O2SAT 97
[2023-08-08] MEDS: amLODIPine BESYLATE 5 MG TAB PO SCH (11:03)
[2023-08-08] MEDS: PANTOPRAZOLE 40 MG TAB PO SCH (11:03)
[2023-08-08 13:00] VITALS: BP 166/78; PULSE 76; RESP 20; TEMP 98.8; O2SAT 96
[2023-08-08] MEDS: SODIUM FERR GLUC 62.5MG/5ML 125 MG in SODIUM CHL 0.9% 100 ML IV SCH (14:13)
[2023-08-08 17:00] VITALS: BP 133/86; PULSE 89; RESP 20; TEMP 98.2; O2SAT 98
[2023-08-08 17:28] LABS: INR 1.15 (0.9-1.15); Partial Thromboplastin Time 31.3 SEC (24.5-34.5)
[2023-08-08 20:00] VITALS: RESP 17; O2SAT 98
[2023-08-08 22:00] VITALS: BP 156/83; PULSE 84; RESP 20; TEMP 97.9; O2SAT 96
[2023-08-09] MEDS: SODIUM CHLORIDE 0.9% 1,000 ML IV SCH ×2 (01:15→21:15)
[2023-08-09 05:00] VITALS: BP 136/85; PULSE 83; RESP 19; TEMP 98.2; O2SAT 97
[2023-08-09] MEDS: SUCRALFATE 1 GM/10 ML ORAL SUSP PO SCH ×4 (06:17→21:50)
[2023-08-09 07:27] LABS: Basophils # (auto) 0 10 ^3/uL (0-0.2); Basophils % (auto) 0.5 % (0.0-2.0); Eosinophils # (auto) 0.1 10 ^3/uL (0-0.8); Lymphocytes # (auto) 1.6 10 ^3/uL (0.4-5.4); Monocytes # (auto) 0.5 10 ^3/uL (0-1.3); Nucleated Red Blood Cells % 0.3 %
[2023-08-09 07:31] LABS: Hematocrit 25.2 % (41.0-53.0); Hemoglobin 7.9 g/dL (13.5-17.5); Lymphocytes % (auto) 30.5 % (10.0-50.0); Mean Corpuscular Hemoglobin 25.6 pg (28.0-32.0); Mean Corpuscular Hgb Conc. 31.4 g/dL (32.0-36.0); Mean Corpuscular Volume 81.5 fL (80.0-100.0); Monocytes % (auto) 9.2 % (0.0-12.0); Neutrophils % (auto) 57.8 % (37.0-80.0); Red Blood Cells 3.09 10^6/uL (4.5-5.90); Red Cell Distribution Width 18.3 % (11.8-14.3); White Blood Cell 5.2 10^3/uL (4.4-10.8)
[2023-08-09 08:07] LABS: Anion Gap 10 (5-15); Carbon Dioxide 21 mmol/L (20-30); Chloride 109 mmol/L (98-107); Potassium 3.7 mmol/L (3.5-5.1); Sodium 140 mmol/L (136-145)
[2023-08-09 08:13] LABS: Glucose 104 mg/dL (74-106)
[2023-08-09 08:16] LABS: BUN/Creatinine Ratio 4.5 (10.0-20.0); Blood Urea Nitrogen < 5 mg/dL (9-23)
[2023-08-09 08:19] LABS: Calcium 8.7 mg/dL (8.5-10.1)
[2023-08-09 08:30] VITALS: BP 143/79; PULSE 73; RESP 20; TEMP 97.7; O2SAT 96
[2023-08-09] MEDS: PANTOPRAZOLE 40 MG TAB PO SCH (09:11)
[2023-08-09] MEDS: amLODIPine BESYLATE 5 MG TAB PO SCH (09:11)
[2023-08-09 09:32] LABS: Magnesium 1.7 mg/dL (1.6-2.6)
[2023-08-09] MEDS ORDERED: BISACODYL 5 MG EC TAB PO ONE ×2 (11:30→17:00)
[2023-08-09 13:00] VITALS: BP 147/79; PULSE 80; RESP 20; TEMP 98.1; O2SAT 96
[2023-08-09] MEDS: SODIUM FERR GLUC 62.5MG/5ML 125 MG in SODIUM CHL 0.9% 100 ML IV SCH (14:00)
[2023-08-09 16:49] VITALS: BP 139/86; PULSE 87; RESP 18; TEMP 98.6; O2SAT 94
[2023-08-09] MEDS ORDERED: POLYETHYLENE GLYCOL 17 GM PWDR PO ONE (17:30)
[2023-08-09 20:00] VITALS: RESP 18
[2023-08-09 21:51] VITALS: BP 107/69; PULSE 97; RESP 18; TEMP 98.5; O2SAT 96
[2023-08-10 05:00] VITALS: BP 146/75; PULSE 81; RESP 17; TEMP 98.2; O2SAT 98
[2023-08-10 05:52] LABS: Basophils # (auto) 0 10 ^3/uL (0-0.2); Basophils % (auto) 0.5 % (0.0-2.0); Eosinophils # (auto) 0.1 10 ^3/uL (0-0.8); Hemoglobin 8.5 g/dL (13.5-17.5); Lymphocytes # (auto) 1.8 10 ^3/uL (0.4-5.4); Mean Corpuscular Volume 82.9 fL (80.0-100.0); Neutrophils # (auto) 2.8 10 ^3/uL (1.6-8.6); White Blood Cell 5.3 10^3/uL (4.4-10.8)
[2023-08-10 05:55] LABS: Eosinophils % (auto) 2.2 % (0.0-7.0); Lymphocytes % (auto) 34.4 % (10.0-50.0); Mean Corpuscular Hgb Conc. 31.3 g/dL (32.0-36.0); Monocytes # (auto) 0.6 10 ^3/uL (0-1.3); Monocytes % (auto) 10.6 % (0.0-12.0); Neutrophils % (auto) 52.3 % (37.0-80.0); Nucleated Red Blood Cells % 0.2 %; Red Blood Cells 3.26 10^6/uL (4.5-5.90); Red Cell Distribution Width 17.8 % (11.8-14.3)
[2023-08-10] MEDS ORDERED: POLYETHYLENE GLYCOL 17 GM PWDR PO ONE (06:00)
[2023-08-10 06:08] LABS: Alanine Aminotransferase 14 U/L (7-40); Alkaline Phosphatase 60 U/L (46-116); Anion Gap 9 (5-15); Aspartate Aminotransferase 27 U/L (13-40); Calcium 8.8 mg/dL (8.7-10.4); Carbon Dioxide 21 mmol/L (20-30); Chloride 109 mmol/L (98-107); Glucose 111 mg/dL (74-106); Magnesium 1.8 mg/dL (1.6-2.6); Potassium 3.7 mmol/L (3.5-5.1); Sodium 139 mmol/L (136-145)
[2023-08-10 06:09] LABS: BUN/Creatinine Ratio 4.5 (10.0-20.0); Bilirubin, Total 0.5 mg/dL (0.2-1.0); Blood Urea Nitrogen < 5 mg/dL (9-23); Total Protein 6.9 g/dL (5.7-8.2)
[2023-08-10] MEDS: SUCRALFATE 1 GM/10 ML ORAL SUSP PO SCH ×2 (06:31→11:30)
[2023-08-10] MEDS ORDERED: CYANOCOBALAMIN (B-12) 1000 MCG/1 ML VIAL IM ONE (07:00)
[2023-08-10 08:32] VITALS: BP 162/93; PULSE 71; RESP 18; TEMP 98.4; O2SAT 98
[2023-08-10] MEDS: PANTOPRAZOLE 40 MG TAB PO SCH (09:04)
[2023-08-10] MEDS: amLODIPine BESYLATE 5 MG TAB PO SCH (09:04)
[2023-08-10] MEDS ORDERED: LIDOCAINE 2% (LOCAL ANESTH.) PF 5ml SDV ONE (11:40)
[2023-08-10] MEDS ORDERED: PROPOFOL 10 MG/ML 20 ML IV ONE ×2 (11:40→12:04)
[2023-08-10] MEDS ORDERED: PANT40TA2 PO (12:10)
[2023-08-10] MEDS ORDERED: FER325T PO (12:10)
[2023-08-10 12:16] VITALS: O2SAT 97
[2023-08-10 13:38] VITALS: BP 162/93; PULSE 95; RESP 16; TEMP 36.9; O2SAT 98
[2023-08-11] MEDS ORDERED: CYANOCOBALAMIN 500 MCG TAB PO SCH (10:00)
== END 2023-08-10 14:08 | disposition home or self-care (01) | DRG 391 ==
LOC: EDBD 08:49 → ER 08:49 → TELE 12:02 → EAST 08-04 03:10 → TELE-EAST 08-04 03:40 → EAST 08-07 15:29
PROVIDERS: ADMIT Internal Medicine; ATTEND Student in an Organized Health Care Education/Training Program
PROC: 05HA33Z Insertion of Infusion Device into Left Brachial Vein, Percutaneous Approach (ICD-10-PCS; 2023-08-05)
PROC: B54NZZA Ultrasonography of Left Upper Extremity Veins, Guidance (ICD-10-PCS; 2023-08-05)
PROC: 0DB68ZX Excision of Stomach, Via Natural or Artificial Opening Endoscopic, Diagnostic (ICD-10-PCS; 2023-08-06)
PROC: 0DB98ZX Excision of Duodenum, Via Natural or Artificial Opening Endoscopic, Diagnostic (ICD-10-PCS; principal; 2023-08-06 10:23)
PROC: 0DBN8ZX Excision of Sigmoid Colon, Via Natural or Artificial Opening Endoscopic, Diagnostic (ICD-10-PCS; 2023-08-10)
DX: K44.9 Diaphragmatic hernia without obstruction or gangrene (principal); K29.71 Gastritis, unspecified, with bleeding; K57.31 Diverticulosis of large intestine without perforation or abscess with bleeding; D62 Acute posthemorrhagic anemia; N17.9 Acute kidney failure, unspecified; J98.11 Atelectasis; K92.0 Hematemesis; K63.5 Polyp of colon; K64.8 Other hemorrhoids; I16.0 Hypertensive urgency; I10 Essential (primary) hypertension; B19.20 Unspecified viral hepatitis C without hepatic coma; E53.8 Deficiency of other specified B group vitamins; E55.9 Vitamin D deficiency, unspecified; E78.5 Hyperlipidemia, unspecified; E11.65 Type 2 diabetes mellitus with hyperglycemia; R55 Syncope and collapse; E61.1 Iron deficiency; Z82.3 Family history of stroke; Z82.49 Family history of ischemic heart disease and other diseases of the circulatory system; Z83.3 Family history of diabetes mellitus; Z91.148 Patient's other noncompliance with medication regimen for other reason
CPT/HCPCS: 36415; 43239; 70450; 70551; 71045; 74176; 80048; 80053; 80061; 80307; 81001; 82270; 82306; 82607; 82728; 82746; 82962; 83036; 83540; 83550; 83605; 83615; 83735; 83880; 84443; 84484; 85014; 85018; 85025; 85045; 85384; 85610; 85730; 86803; 86850; 86900; 86901; 86920; 87340; 93005; 93306; 93886; 95819; 96365; 96366; 97110; 97116; 97163; 97530; 99291; C9113; G0378; J1756; J1815; J2001; J2250; J2405; J2543; J2704; J3490

== ENCOUNTER 2024-05-04 01:37 | Inpatient (IN) | payer BC, MEDICAID ==
[~2024-05-04] VITALS: Ht 180.3 cm; Wt 92.7 kg
[~2024-05-04 01:37] MED LIST changes: -BENA40TA70 PO; +BENA40TA71 PO; +FER325T PO; +PANT40TA2 PO
[2024-05-04 02:00] LABS: Basophils # (auto) 0 10 ^3/uL (0-0.2); Basophils % (auto) 0.6 % (0.0-2.0); Eosinophils # (auto) 0.2 10 ^3/uL (0-0.8); Hematocrit 35.2 % (41.0-53.0); Hemoglobin 12.1 g/dL (13.5-17.5); Lymphocytes # (auto) 2.8 10 ^3/uL (0.4-5.4); Lymphocytes % (auto) 54.6 % (10.0-50.0); Mean Corpuscular Hemoglobin 31.5 pg (28.0-32.0); Mean Corpuscular Hgb Conc. 34.3 g/dL (32.0-36.0); Monocytes # (auto) 0.4 10 ^3/uL (0-1.3); Monocytes % (auto) 8.3 % (0.0-12.0); Neutrophils # (auto) 1.7 10 ^3/uL (1.6-8.6); Neutrophils % (auto) 33.5 % (37.0-80.0); Nucleated Red Blood Cells % 0.1 %; Red Blood Cells 3.83 10^6/uL (4.5-5.90); Red Cell Distribution Width 13.5 % (11.8-14.3); White Blood Cell 5.1 10^3/uL (4.4-10.8)
[2024-05-04 02:17] LABS: Alanine Aminotransferase 15 U/L (7-40); Albumin 3.7 g/dL (3.2-4.8); Alkaline Phosphatase 121 U/L (46-116); Anion Gap 8 (5-15); Aspartate Aminotransferase 12 U/L (13-40); BUN/Creatinine Ratio 8.8 (10.0-20.0); Bilirubin, Total 0.4 mg/dL (0.2-1.0); Blood Urea Nitrogen 12 mg/dL (9-23); Calcium 9.2 mg/dL (8.7-10.4); Carbon Dioxide 23 mmol/L (20-30); Chloride 106 mmol/L (98-107); Glucose 327 mg/dL (74-106); Potassium 4.1 mmol/L (3.5-5.1); Sodium 137 mmol/L (136-145); Total Protein 6.6 g/dL (5.7-8.2)
[2024-05-04] MEDS ORDERED: DEXTROSE (50%) 50ML SYRG IV PRN (05:45)
[2024-05-04] MEDS ORDERED: NITROGLYCERIN 0.4 MG SL TAB SL PRN (05:45)
[2024-05-04] MEDS ORDERED: ACETAMINOPHEN 325 MG TAB PO PRN (05:45)
[2024-05-04] MEDS ORDERED: ONDANSETRON HCL 4 MG/2 ML VIAL IV PRN (05:45)
[2024-05-04] MEDS ORDERED: MORPHINE SULFATE INJ 2 MG/ml SYRG IV PRN (05:45)
[2024-05-04] MEDS ORDERED: DOCUSATE SOD 100 MG CAP PO PRN (05:45)
[2024-05-04 06:30] VITALS: PULSE 74; RESP 17; O2SAT 95
[2024-05-04 06:44] LABS: Alanine Aminotransferase 17 U/L (7-40); Albumin 4.1 g/dL (3.2-4.8); Alkaline Phosphatase 114 U/L (46-116); Anion Gap 7 (5-15); Aspartate Aminotransferase 14 U/L (13-40); BUN/Creatinine Ratio 10.3 (10.0-20.0); Blood Urea Nitrogen 14 mg/dL (9-23); Calcium 9.4 mg/dL (8.7-10.4); Carbon Dioxide 23 mmol/L (20-30); Chloride 106 mmol/L (98-107); Glucose 317 mg/dL (74-106); Potassium 4.4 mmol/L (3.5-5.1); Sodium 136 mmol/L (136-145)
[2024-05-04 06:45] LABS: Bilirubin, Total 0.5 mg/dL (0.2-1.0); Total Protein 7.1 g/dL (5.7-8.2)
[2024-05-04] MEDS: InsuLIN REG 1unit/0.01ml Soln (100units/ml) SC SCH (06:46)
[2024-05-04] MEDS: ACCU-CHEK COMFORT CURVE STRIP VI SCH (06:46)
[2024-05-04] MEDS: cefTRIAXone 1GM/50ML D5W 50 ML IV ONE (06:50)
[2024-05-04] MEDS: SODIUM CHLOR 0.9% PF (SALINE LOCK) 10ML VIAL/SYR IV SCH (07:46)
[2024-05-04] MEDS: FAMOTIDINE (10MG/ML) 2ML VL IV SCH (10:46)
[2024-05-04] MEDS: ASPirin 81 mg TAB PO SCH (10:46)
[2024-05-04] MEDS: amLODIPine BESYLATE 5 MG TAB PO SCH (10:46)
[2024-05-04 12:42] VITALS: BP 161/91; PULSE 66; RESP 19; TEMP 98.1; O2SAT 98
[2024-05-04] MEDS: guaiFENesin 200 MG/10 ML UD PO PRN (12:55)
[2024-05-04] MEDS: HYDROcodone-ACET 5/325MG TAB PO PRN (12:56)
[2024-05-04] MEDS: hydrALAZINE HCL 20 MG/ML VL IV PRN (12:56)
[2024-05-04 13:00] VITALS: BP 161/91; PULSE 76; RESP 15; TEMP 97.8; O2SAT 96
[2024-05-04 13:40] VITALS: BP 148/97; PULSE 96
[2024-05-04 17:00] VITALS: BP 126/92; PULSE 97; RESP 17; TEMP 97.7; O2SAT 97
[2024-05-04] MEDS ORDERED: InsuLIN REG 1unit/0.01ml Soln (100units/ml) SC SCH (22:00)
== END 2024-05-04 18:40 | disposition home or self-care (01) | DRG 153 ==
LOC: ER 01:37 → TELE 06:07 → TELE-EAST 12:22 → EAST 17:18
PROVIDERS: ADMIT Nurse Practitioner Family; ATTEND Nurse Practitioner Family
DX: J06.9 Acute upper respiratory infection, unspecified (principal); K21.9 Gastro-esophageal reflux disease without esophagitis; E78.5 Hyperlipidemia, unspecified; I11.0 Hypertensive heart disease with heart failure; I50.9 Heart failure, unspecified; I16.0 Hypertensive urgency; E11.65 Type 2 diabetes mellitus with hyperglycemia; Z79.4 Long term (current) use of insulin; Z79.899 Other long term (current) drug therapy
CPT/HCPCS: 36415; 71045; 80053; 82306; 82607; 82962; 83880; 84443; 84484; 85025; 93005; 96365; 96375; G0378; J1815; J3490

== ENCOUNTER 2024-09-03 00:03 | Inpatient (IN) | payer BC, MEDICAID ==
[~2024-09-03] VITALS: Ht 180.3 cm; Wt 105.0 kg
[~2024-09-03 00:03] MED LIST changes: -FERR-7 PO; -PANT40T PO
--- NOTE | 2024-09-03 00:29 | ED.PDOC ---
GI ASSESSMENT HPI Comments 69-year-old male brought in by EMS presents with a chief complaint of abdominal pain, nausea, vomiting x 1900 this evening. Per EMS, called 911 after patient began to have coffee ground emesis and abdominal pain, and appeared "altered". Patient is A&Ox4 at this time and is not altered. Patient is having active vomiting of coffee ground emesis and reports that his pain is localized to his epigastric region, non-radiating, and rates his pain a 10/10. EKG shows Sinus Tachycardia at 100. No other symptoms or modifying factors present at this time. Chief Complaint: GI Bleed Time Seen by MD: 00:21 Primary Care Provider: LEANNA Yang Notes: Medications, Allergies Allergies: Coded Allergies: NO KNOWN ALLERGIES (Unverified , 06/03/16) Home Meds Active Scripts Pantoprazole Sodium Sesquihydr (Protonix) 40 Mg Tab, 40 MG PO DAILY for 30 Days, #30 TAB Prov:MARION ORTIZ RESIDENT 08/10/23 Ferrous Sulfate (FERROUS SULFATE) 325 Mg Tb, 1 TAB PO DAILY for 90 Days, #90 TAB 1 Refill Prov:MARION ORTIZ RESIDENT 08/10/23 Reported Medications Metformin Hydrochloride (Metformin Hcl) 850 Mg Tab, 1 TAB PO BID 09/30/22 Benazepril Hcl (Benazepril Hcl) 40 Mg Tab, 1 TAB PO DAILY 09/30/22 Amlodipine Besylate (Amlodipine Besylate) 10 Mg Tab, 1 TAB PO DAILY 09/30/22 Information Source: Patient, Emergency Med Personnel Mode of Arrival: EMS Timing: Hours Duration: Since onset Prehospital treatment: None Quality: Sharp Vomitus: Coffee Grounds Stool: Normal Severity: Moderate Recent: None Recent Hx of: None Pain Location: Epigastric Past Medical History PAST MEDICAL HISTORY: Anemia, CHF, DM, GERD, High Lipids, HTN Surgical History: Denies all surgeries Family History Family History: Reviewed,noncontributory to illness Social History Smoker: Non-Smoker Alcohol: Denies ETOH Use Drugs: Denies Drug Use Lives In: Home Constitutional: denies: chills, diaphoresis, fatigue, fever, malaise, sweats, weakness, others EENTM: denies: blurred vision, double vision, ear bleeding, ear discharge, ear drainage, ear pain, ear ringing, eye pain, eye redness, hearing loss, mouth pain, mouth swelling, nasal discharge, nose bleeding, nose congestion, nose pain , photophobia, tearing, throat pain, throat swelling, voice changes, others Respiratory: denies: cough, hemoptysis, orthopnea, SOB at rest, shortness of breath, SOB with excertion, stridor, wheezing, others Cardiovascular: denies: chest pain, dizzy spells, diaphoresis, Dyspnea on exertion, edema, irregular heart beat, left arm pain, lightheadedness, palpitations, PND, syncope, others Gastrointestinal: reports: abdominal pain, nausea, vomiting; denies: abdomen distended, blood streaked bowels, constipated, diarrhea, dysphagia, difficulty swallowing, hematemesis, melena, poor appetite, poor fluid intake, rectal bleeding, rectal pain, others Genitourinary: denies: burning, dysuria, flank pain, frequency, hematuria, incontinence, penile discharge, penile sore, pain, testicle pain, testicle swelling, urgency, others Neurological: denies: dizziness, fainting, headache, left sided numbness, left sided weakness, numbness, paresthesia, pre-existing deficit, right sided numb ness, right sided weakness, seizure, speech problems, tingling, tremors, weakness, others Musculoskeletal: denies: back pain, gout, joint pain, joint swelling, muscle pain, muscle stiffness, neck pain, others Integumetry: denies: bruises, change in color, change in hair/nails, dryness, laceration, lesions, lumps, rash, wounds, others Allergic/Immunocompromised: denies: Difficulty Healing, Frequent Infections, Hives, Itching, others Hematologic/Lymphatic: denies: anemia, blood clots, easy bleeding, easy bruising, swollen glands, others Endocrine: denies: excessive hunger, excessive sweating, excessive thirst, excessive urination, flushing, intolerance to cold, intolerance to heat, unexplained weight gain, unexplained weight loss, others Psychiatric: denies: anxiety, bipolar disorder, depression, hopeless, panic disorder, schizophrenia, sleepless, suicidal, others All Other Systems: Reviewed and Negative Physical Exam General Appearance: Moderate Distress, Normal HEENT: Normal ENT Inspection, Pharynx Normal, TMs Normal Neck: Full Range of Motion, Non-Tender, Normal, Normal Inspection Respiratory: Chest Non-Tender, Lungs Clear, No Accessory Muscle Use, No Respiratory Distress, Normal Breath Sounds Cardiovascular: No Edema, No JVD, No Murmur, No Gallop, Normal Peripheral Pulses, Regular Rate/Rhythm Breast Exam: Deferred Gastrointestinal: No Organomegaly, Non Tender, No Pulsatile Mass, Normal Bowel Sounds, Soft Genitalia: Deferred Pelvic: Deferred Rectal: Deferred Extremities: No calf tenderness, Normal capillary refill, Normal inspection, Normal range of motion, Non-tender, No pedal edema Musculoskeletal : Apperance: Normal Neurologic: Alert, student counsellor II-XII nml as Tested, No Motor Deficits, Normal Affect, Normal Mood, No Sensory Deficits Cerebellar Function: Normal Reflexes: Normal Skin: Dry, Normal Color, Warm Lymphatic: No Adenopathy EKG EKG : Pulse Rate (adult): 100 [place]: Normal Cardiac Rhythm: ST Block: None Hypertrophy: None ST: Normal Was a procedure done? Was a procedure done?: No GI differential Dx Differential Diagnosis: Appendicitis, Aortic dissection, Constipation, Diverticular disease, Gastritis/PUD, Gastroenteritis, GI hemorrhage, Hernia X-Ray, Labs, Meds, VS Vital Signs Date Time Temp Pulse Resp B/P (MAP) Pulse Ox O2 Delivery O2 Flow Rate FiO2 09/03/24 05:42 79 19 163/95 09/03/24 05:00 85 18 127/78 (94) 97 09/03/24 03:00 91 15 162/87 (112) 09/03/24 02:00 111 20 145/112 (123) 95 09/03/24 01:04 117 23 96 Room Air* 0 21 09/03/24 01:04 97.8 117 23 145/85 (105) 96 97.8 09/03/24 00:29 100 09/03/24 00:21 97.6 98 17 120/79 (93) 94 09/03/24 00:05 100 Lab Test 09/03/24 04:36 09/03/24 03:31 09/03/24 02:43 09/03/24 02:28 Range/Units Urine Color Light-yellow Yellow Urine Clarity Clear Clear Urine pH 6.5 5.0-9.0 Urine Specific [place] 1.047 H 1.001-1.035 Urine Protein 2+ H Negative Urine Ketones 1+ H Negative Urine Blood Negative Negative /uL Urine Nitrite Negative Negative Urine Bilirubin Negative Negative Urine Urobilinogen Normal Negative mg/dL Urine Leukocyte Esterase Negative Negative /uL Urine RBC 1 0 - 3 /hpf Urine WBC 2 0 - 3 /hpf Urine Squamous Epithelial Cells Few <5 /hpf Urine Bacteria None seen None Seen /hpf Urine Glucose 4+ H Normal mg/dL Lactic Acid Level 4.6 *H 0.4-2.0 mmol/L Blood Gas Specimen Type Venous Blood Gas Sample Site Vbg - n/a Blood Gas Patient Temperature 37.0 Arterial Blood Date Drawn [id number] Syd Test N/a Venous Blood pH 7.363 7.320-7.430 Venous Blood pCO2 at Patient Temp 46.1 38.0-54.0 mmHg Venous Blood pO2 at Patient Temp 41.8 23.0-48.0 mmHg Venous Blood HCO3 25.6 22.0-29.0 mmol/L Venous Bld O2 Saturation (Measured) 72.6 60.0-85.0 % Venous Blood Base Excess -0.1 -2.0-3.0 mmol/L Venous Blood Total Hemoglobin 13.6 13.5-17.5 g/dL Venous Blood Oxyhemoglobin 71.1 0.0-79.0 % Venous Blood Carboxyhemoglobin 1.3 0.5-1.5 % Venous Blood Methemoglobin 0.7 0.0-1.5 % Blood Gas Liter Flow 0.00 Blood Gas Modality Room air FiO2 % 21.0 Specimen Drawn By [facility] Blood Gas Comments venous POC Glucose 291 H 70-106 mg/dl Test 09/03/24 01:30 09/03/24 00:30 Range/Units Troponin I High Sensitivity 7 6 </=54 ng/L Beta-Hydroxybutyric Acid 1.176 H < 0.4 mmol/L White Blood Count 10.7 4.4-10.8 10^3/uL Red Blood Count 4.83 4.5-5.90 10^6/uL Hemoglobin 14.4 13.5-17.5 g/dL Hematocrit 44.4 41.0-53.0 % Mean Corpuscular Volume 91.9 80.0-100.0 fL Mean Corpuscular Hemoglobin 29.8 28.0-32.0 pg Mean Corpuscular Hemoglobin Concent 32.5 32.0-36.0 g/dL Red Cell Distribution Width 15.3 H 11.8-14.3 % Platelet Count 212 140-450 10^3/uL Mean Platelet Volume 9.1 6.9-10.8 fL Neutrophils (%) (Auto) 73.9 37.0-80.0 % Lymphocytes (%) (Auto) 17.9 10.0-50.0 % Monocytes (%) (Auto) 7.7 0.0-12.0 % Eosinophils (%) (Auto) 0.2 0.0-7.0 % Basophils (%) (Auto) 0.3 0.0-2.0 % Neutrophils # (Auto) 7.9 1.6-8.6 10 ^3/uL Lymphocytes # (Auto) 1.9 0.4-5.4 10 ^3/uL Monocytes # (Auto) 0.8 0-1.3 10 ^3/uL Eosinophils # (Auto) 0 0-0.8 10 ^3/uL Basophils # (Auto) 0 0-0.2 10 ^3/uL Nucleated Red Blood Cells 0.1 % Prothrombin Time 11.3 9.3-11.8 sec Prothrombin Time INR 1.07 0.9-1.15 Activated Partial Thromboplast Time 22.9 L 24.5-34.5 SEC Sodium Level 141 136-145 mmol/L Potassium Level 3.5 3.5-5.1 mmol/L Chloride Level 106 98-107 mmol/L Carbon Dioxide Level 19 L 20-31 mmol/L Anion Gap 16 H 5-15 Blood Urea Nitrogen 18 9-23 mg/dL Creatinine 2.10 H 0.700-1.30 mg/dL Glomerular Filtration Rate Calc 34 >90 mL/min BUN/Creatinine Ratio 8.6 L 10.0-20.0 Serum Glucose 309 H 74-106 mg/dL Lactic Acid Level 6.9 *H 0.4-2.0 mmol/L Calcium Level 9.6 8.7-10.4 mg/dL Total Bilirubin 0.7 0.2-1.0 mg/dL Aspartate Amino Transferase (AST) 22 13-40 U/L Alanine Aminotransferase (ALT) 18 7-40 U/L Alkaline Phosphatase 85 46-116 U/L B-Type Natriuretic Peptide 17.98 0-100 pg/mL Total Protein 7.5 5.7-8.2 g/dL Albumin 4.2 3.2-4.8 g/dL Lipase 49 12-53 U/L Current Medications Medications (Trade) Dose Ordered Sig/Abilio Route Start Time Stop Time Status Last Admin Ondansetron HCl (Zofran) 4 mg ONCE ONCE IV 09/03/24 00:45 09/03/24 00:46 DC 09/03/24 01:36 Pantoprazole Sodium (Protonix) 40 mg ONCE ONCE IV 09/03/24 00:45 09/03/24 00:46 DC 09/03/24 01:36 Octreotide Acetate 100 mcg/ Sodium Chloride 51 ml @ 204 mls/hr ONCE ONCE IV 09/03/24 00:45 09/03/24 00:59 DC 09/03/24 01:44 Octreotide Acetate 500 mcg/ Sodium Chloride 100 ml @ 10 mls/hr Q10H IV 09/03/24 00:45 09/03/24 01:59 Sodium Chloride 2,000 ml @ 1,000 mls/hr Q2H ONCE IV 09/03/24 02:45 09/03/24 04:44 DC 09/03/24 02:45 Ondansetron HCl (Zofran) 4 mg ONCE ONCE IV 09/03/24 03:00 09/03/24 03:01 DC 09/03/24 03:10 Sodium Chloride 1,000 ml @ 1,000 mls/hr Q1H ONCE IV 09/03/24 03:45 09/03/24 04:44 DC 09/03/24 03:44 Morphine Sulfate 4 mg Q4HP PRN IV 09/03/24 05:30 09/03/24 05:42 [place] [id number] Ph: [phone] DIAGNOSTIC IMAGING Diagnostic Imaging Report : [id number] Signed PATIENT: MORIS VELÁSQUEZ ACCT: [id number] UNIT: [id number] : 1955 LOC: ER ROOM / BED: / AGE / SEX: 69 / M ADM STATUS: REG ER SERVICE ORDERING PHYSICIAN: JULIANE MAROI MD PROCEDURE(s): ABPLIV - CT AB PEL WITH IV CON ONLY REASON: Gi Bleed ORDER NUMBER(s): [id number], ACCESSION NUMBER(s): [id number] Examination: ABPLIV CLINICAL INDICATION: Gi Bleed COMPARISON: None. CONTRAST USED: Intravenous. TECHNIQUE: A post-contrast CT study of the abdomen and pelvis was performed after intravenous contrast administration. The examination was conducted using 5 mm thin slices, following ALARA principles (As Low As Reasonably Achievable). Multiplanar reconstructions were obtained. FINDINGS: CT Abdomen: Lung Base: Linear fibrotic bands in the bilateral lower lobes. Small 5 mm calcified granuloma in the superior segment of the right lower lobe. No follow- up indicated. Liver: Mild fatty infiltration. Normal size and attenuation. Portal venous radicles appear normal. No intrahepatic biliary ductal dilatation. Gallbladder and Biliary System: Gallbladder appears unremarkable with no intraluminal pathology. Common bile duct is not dilated. Pancreas: Normal in size and shape with no focal lesions. Peripancreatic fat planes are clear. Spleen: Tiny 1-2 mm calcified granulomas noted. No other focal abnormalities. Adrenal Glands: Bilateral adrenal glands are unremarkable. Kidneys: Left kidney with a small 10 mm cortical cyst in the interpolar region. No septations or calcifications. No hydronephrosis or renal calculi. Vessels: Scattered atherosclerotic calcifications in the infrarenal aorta, bilateral common iliac arteries, and origin of the renal arteries. Aorta, IVC, and mesenteric vessels appear unremarkable. Stomach and Bowel: Large hiatal hernia measuring 12.1 cm, containing almost the entire stomach. Large bowel loops distended with moderate fecal residue. Fecal impaction in the distal sigmoid colon and rectum, indicative of constipation. No diverticulosis or diverticulitis. CT Pelvis: Appendix: Visualized and appears unremarkable. Colon: Large bowel loops are distended with fecal matter, consistent with constipation. Scattered diverticulosis of the sigmoid colon without evidence of diverticulitis. Bladder: Normally distended, unremarkable with no intraluminal pathology. Prostate and Seminal Vesicles: Borderline prostatomegaly. Otherwise, unremarkable. Hernias: Small omental fat-containing right inguinal hernia. Small omental fat-containing umbilical hernia measuring 18 x 12 mm. Lymph Nodes and Fluid Collections: No significant retroperitoneal or pelvic lymphadenopathy. No abnormal fluid collections. Skeletal System: Mild dextroscoliosis of the lumbar spine. Vacuum disc phenomena at L3-L4, L4-L5, and L5-S1 levels with multilevel degenerative facet arthropathy. Degenerative changes in bilateral sacroiliac joints and superolateral hip joints. Mild osteopenia. IMPRESSION: 1. Gastrointestinal Findings: Large hiatal hernia (12.1 cm) containing almost the entire stomach. 2. Moderate fecal residue in the large bowel loops with fecal impaction in the distal sigmoid colon and rectum. Scattered diverticulosis of the sigmoid colon without evidence of diverticulitis. 3. Liver and Spleen: Mild fatty infiltration of the liver. 4. Tiny calcified granulomas in the spleen. 5. Renal Findings: Small 10 mm cortical cyst in the left kidney interpolar region. No concerning features noted. 6. Hernias: Small omental fat-containing right inguinal hernia. 7. Small omental fat-containing umbilical hernia (18 x 12 mm). 8. Spinal Findings: Mild lumbar dextroscoliosis with vacuum disc changes at L3- L4, L4-L5, and L5-S1. 9. Multilevel degenerative facet arthropathy. 10. Degenerative changes in the bilateral sacroiliac and hip joints. 11. Pulmonary Findings: Linear fibrotic bands in the bilateral lower lobes. 2. Small calcified granuloma in the right lower lobe, with no follow-up required. Electronically Signed 09/03/2024 05:08 Kellie Joseph ATED BY: JAKE GREENE MD DICTATED DATE/TIME: 09/03/24507 SIGNED BY: JAKE GREENE MD SIGNED DATE/TIME: 09/03/24507 CC: 1st troponin is seven. Second troponin is six. EKG shows no signs of ischemia. BNP is 18. Lactic acid is trending down from 6.9 to 4.6 Beta hydroxy acid is 1.176 which is elevated. Hemoglobin is 14.4. Anion gap is 16. Creatinine is 2.1. Lipase is 49. The patient was given Zofran Protonix and octreotide drips and IV fluids. Patient will be admitted to the hospitalist for further evaluation and care. Dr. Carter will be consulted. Time of 1ST Reevaluation: 00:51 Reevaluation 1ST: Unchanged Patient Education/Counseling: Diagnosis, Treatment, Prognosis Family Education/Counseling: No Family Present Departure 1 Departure Time of Disposition: 05:21 Impression: Primary Impression: Blood loss anemia Additional Impressions: Hiatal hernia Umbilical hernia Qualified Codes: K42.9 - Umbilical hernia without obstruction or gangrene Right inguinal hernia Coffee ground emesis Disposition: ADMITTED INPATIENT Admit to: Tele Condition: Guarded Critical Care Note Critical Care Time?: Yes (55 min-critical care time only) Stability Stability form required: No I personally scribed for JULIANE MARIO MD ([email or web address]) on 09/03/24 at 00:29. Electronically submitted by Tato Valles [email or web address]). JULIANE MARIO MD Sep 03, 2024 00:29
[2024-09-03 00:45] LABS: Basophils # (auto) 0 10 ^3/uL (0-0.2); Basophils % (auto) 0.3 % (0.0-2.0); Eosinophils # (auto) 0 10 ^3/uL (0-0.8); Eosinophils % (auto) 0.2 % (0.0-7.0); Hematocrit 44.4 % (41.0-53.0); Hemoglobin 14.4 g/dL (13.5-17.5); Lymphocytes # (auto) 1.9 10 ^3/uL (0.4-5.4); Lymphocytes % (auto) 17.9 % (10.0-50.0); Mean Corpuscular Hemoglobin 29.8 pg (28.0-32.0); Mean Corpuscular Hgb Conc. 32.5 g/dL (32.0-36.0); Mean Corpuscular Volume 91.9 fL (80.0-100.0); Monocytes # (auto) 0.8 10 ^3/uL (0-1.3); Monocytes % (auto) 7.7 % (0.0-12.0); Neutrophils # (auto) 7.9 10 ^3/uL (1.6-8.6); Neutrophils % (auto) 73.9 % (37.0-80.0); Nucleated Red Blood Cells % 0.1 %; Platelet Count (auto) 212 10^3/uL (140-450); Red Blood Cells 4.83 10^6/uL (4.5-5.90); Red Cell Distribution Width 15.3 % (11.8-14.3); White Blood Cell 10.7 10^3/uL (4.4-10.8)
[2024-09-03 01:04] VITALS: PULSE 117; RESP 23; O2SAT 96
[2024-09-03 01:12] LABS: Alanine Aminotransferase 18 U/L (7-40); Albumin 4.2 g/dL (3.2-4.8); Alkaline Phosphatase 85 U/L (46-116); Anion Gap 16 (5-15); Aspartate Aminotransferase 22 U/L (13-40); BUN/Creatinine Ratio 8.6 (10.0-20.0); Bilirubin, Total 0.7 mg/dL (0.2-1.0); Blood Urea Nitrogen 18 mg/dL (9-23); Calcium 9.6 mg/dL (8.7-10.4); Carbon Dioxide 19 mmol/L (20-31); Chloride 106 mmol/L (98-107); Glucose 309 mg/dL (74-106); Lipase 49 U/L (12-53); Potassium 3.5 mmol/L (3.5-5.1); Sodium 141 mmol/L (136-145); Total Protein 7.5 g/dL (5.7-8.2)
[2024-09-03 01:14] LABS: INR 1.07 (0.9-1.15); Partial Thromboplastin Time 22.9 SEC (24.5-34.5); Prothrombin Time 11.3 sec (9.3-11.8)
[2024-09-03] MEDS: PANTOPRAZOLE 40 MG/10 ML VIAL INJ IV ONE (01:36)
[2024-09-03] MEDS: ONDANSETRON HCL 4 MG/2 ML VIAL IV ONE ×2 (01:36→03:10)
[2024-09-03] MEDS: OCTREOTIDE ACETATE 100 MCG in SODIUM CHL 0.9% 50 ML IV ONE (01:44)
[2024-09-03] MEDS: OCTREOTIDE ACETATE 500 MCG/ML VL ONE (01:46)
[2024-09-03] MEDS: OCTREOTIDE ACETATE 100 MCG/ML VL ONE (01:46)
[2024-09-03] MEDS: OCTREOTIDE ACETATE 500 MCG in SODIUM CHL 0.9% 99 ML IV SCH (01:59)
[2024-09-03] MEDS: SODIUM CHLORIDE 0.9% 2,000 ML IV ONE (02:45)
--- NOTE | 2024-09-03 03:17 | DVH ---
Examination: CXRP CLINICAL INDICATION: GI BLEED COMPARISON: None. TECHNIQUE: Frontal radiograph of the chest was obtained. FINDINGS: Inhomogeneous radiopacities in the right lower lung, suggestive of patchy consolidation. No pleural effusion on either side in current study. There is no pneumothorax. The cardiomediastinal silhouette is within normal limits. No acute osseous abnormality is seen. IMPRESSION: Patchy consolidation in the right lower lung. Electronically Signed 09/03/2024 03:09 Kellie Joseph
[2024-09-03 03:22] LABS: Lactic Acid w/Reflex 6.9 mmol/L (0.4-2.0)
[2024-09-03] MEDS: SODIUM CHLORIDE 0.9% 1,000 ML IV ONE (03:44)
[2024-09-03 04:39] LABS: Urine Bacteria None Seen /hpf (None Seen)
--- NOTE | 2024-09-03 05:17 | DVH ---
Examination: ABPLIV CLINICAL INDICATION: Gi Bleed COMPARISON: None. CONTRAST USED: Intravenous. TECHNIQUE: A post-contrast CT study of the abdomen and pelvis was performed after intravenous contras t administration. The examination was conducted using 5 mm thin slices, following ALARA principles (A s Low As Reasonably Achievable). Multiplanar reconstructions were obtained. FINDINGS: CT Abdomen: Lung Base: Linear fibrotic bands in the bilateral lower lobes. Small 5 mm calcified granuloma in the superior segment of the right lower lobe. No follow-up indicated. Liver: Mild fatty infiltration. Normal size and attenuation. Portal venous radicles appear normal. No intrahepatic biliary ductal dilatation. Gallbladder and Biliary System: Gallbladder appears unremarkable with no intraluminal pathology. Comm on bile duct is not dilated. Pancreas: Normal in size and shape with no focal lesions. Peripancreatic fat planes are clear. Spleen: Tiny 1-2 mm calcified granulomas noted. No other focal abnormalities. Adrenal Glands: Bilateral adrenal glands are unremarkable. Kidneys: Left kidney with a small 10 mm cortical cyst in the interpolar region. No septations or calc ifications. No hydronephrosis or renal calculi. Vessels: Scattered atherosclerotic calcifications in the infrarenal aorta, bilateral common iliac art eries, and origin of the renal arteries. Aorta, IVC, and mesenteric vessels appear unremarkable. Stomach and Bowel: Large hiatal hernia measuring 12.1 cm, containing almost the entire stomach. Large bowel loops distended with moderate fecal residue. Fecal impaction in the distal sigmoid colon and rectum, indicative of constipation. No diverticulosis or diverticulitis. CT Pelvis: Appendix: Visualized and appears unremarkable. Colon: Large bowel loops are distended with fecal matter, consistent with constipation. Scattered di verticulosis of the sigmoid colon without evidence of diverticulitis. Bladder: Normally distended, unremarkable with no intraluminal pathology. Prostate and Seminal Vesicles: Borderline prostatomegaly. Otherwise, unremarkable. Hernias: Small omental fat-containing right inguinal hernia. Small omental fat-containing umbilical hernia measuring 18 x 12 mm. Lymph Nodes and Fluid Collections: No significant retroperitoneal or pelvic lymphadenopathy. No abnor mal fluid collections. Skeletal System: Mild dextroscoliosis of the lumbar spine. Vacuum disc phenomena at L3-L4, L4-L5, and L5-S1 levels with multilevel degenerative facet arthropath y. Degenerative changes in bilateral sacroiliac joints and superolateral hip joints. Mild osteopenia. IMPRESSION: 1. Gastrointestinal Findings: Large hiatal hernia (12.1 cm) containing almost the entire stomach. 2. Moderate fecal residue in the large bowel loops with fecal impaction in the distal sigmoid colon and rectum. Scattered diverticulosis of the sigmoid colon without evidence of diverticulitis. 3. Liver and Spleen: Mild fatty infiltration of the liver. 4. Tiny calcified granulomas in the spleen. 5. Renal Findings: Small 10 mm cortical cyst in the left kidney interpolar region. No concerning fea tures noted. 6. Hernias: Small omental fat-containing right inguinal hernia. 7. Small omental fat-containing umbilical hernia (18 x 12 mm). 8. Spinal Findings: Mild lumbar dextroscoliosis with vacuum disc changes at L3-L4, L4-L5, and L5-S1. 9. Multilevel degenerative facet arthropathy. 10. Degenerative changes in the bilateral sacroiliac and hip joints. 11. Pulmonary Findings: Linear fibrotic bands in the bilateral lower lobes. 2. Small calcified granuloma in the right lower lobe, with no follow-up required. Electronically Signed 09/03/2024 05:08 Kellie Joseph
[2024-09-03 05:29] LABS: Urine Blood Negative /uL (Negative); Urine Clarity Clear (Clear); Urine Color Light-Yellow (Yellow); Urine Protein, UAD 2+ (Negative); Urine Specific Gravity 1.047 (1.001-1.035); Urine Urobilinogen Normal (Negative); Urine WBC 2 /hpf (0 - 3); Urine pH 6.5 (5.0-9.0)
[2024-09-03] MEDS ORDERED: ONDANSETRON HCL 4 MG/2 ML VIAL IV PRN (05:30)
[2024-09-03] MEDS: MORPHINE SULFATE 4 MG/ML SYR/VIAL IV PRN ×2 (05:42→13:22)
[2024-09-03] MEDS ORDERED: LIDOCAINE 2% TOPICAL JELLY 5 ML URJT TOP ONE (06:08)
[2024-09-03] MEDS: LIDOCAINE 2% JELLY 11ml (GLYDO) ONE (06:27)
[2024-09-03] MEDS: LIDOCAINE 2% TOPICAL JELLY 5 ML URJT TOP ONE (06:28)
--- NOTE | 2024-09-03 06:49 | ECG ---
[facility] Test Date: 2024-09-03 Test Time: 00:05:13 Pat Name: MORIS VELÁSQUEZ Department: ED Room: 0271T Gender: M [employer] Off[employer]arer: CONSTANCE : 1955 Requested By: JULIANE MARIO Order Number: [id number] Reading MD: Daren De Los Santos Measurements Intervals [place] Rate: 100 P: 55 PA: 147 QRS: -55 QRSD: 99 T: 45 QT: 370 QTc: 478 Interpretive Statements Sinus tachycardia Atrial premature complex Left anterior fascicular block Consider anterior infarct Electronically Signed On 09-11-2024 12:59:48 PST by Daren De Los Santos Please click the below link to view image of tracing.
--- NOTE | 2024-09-03 07:06 | DVH ---
CHEST RADIOGRAPH Indication:ngtube placement Technique: Single frontal view of the chest was obtained Comparison: XY CHEST PORTABLE on DOS: 09/03/24, XY CHEST PORTABLE on DOS: 05/04/24, XY CHEST XRAY 1 EW on DOS: 08/08/23, XY CHEST PORTABLE on DOS: 08/03/23, CXRP on DOS: 09/30/22 FINDINGS: Lines and Tubes: None Lungs: No focal consolidation. Pleura: No effusion. No pneumothorax. Cardiomediastinal contours: Unremarkable Bones: No acute osseous abnormality. IMPRESSION: NG tube in stomach No acute cardiopulmonary disease.
[2024-09-03 07:45] VITALS: PULSE 96; RESP 13; O2SAT 95
[2024-09-03] MEDS ORDERED: DEXTROSE (50%) 50ML SYRG IV PRN (08:30)
[2024-09-03] MEDS ORDERED: NITROGLYCERIN 0.4 MG SL TAB SL PRN (08:30)
[2024-09-03] MEDS ORDERED: MORPHINE SULFATE INJ 2 MG/ml SYRG IV PRN (08:30)
--- NOTE | 2024-09-03 08:32 | DVHHP2 ---
Admitting Diagnosis: Abdominal pain and hematemesis History of Present Illness 69 yo male patient c/o 07/31 epigastric abdominal pain with associated nausea and coffee ground emesis. Per patient became altered so she called EMS. While in the emergency department the patient was evaluated by the provider, As per provider: Labs, vital signs, and imagining monitored. Patient will be admitted for further evaluation and treatment. I discussed admission with the patient/family and is in agreement to treatment plan. Patient Family History: Cardiovascular disease G8 BROTHER Cerebrovascular accident (CVA) G8 MOTHER FH: heart failure G8 FATHER Hypertension G8 MOTHER Allergies: Coded Allergies: NO KNOWN ALLERGIES (Unverified , 06/03/16) Home Meds Reported Medications Simvastatin (Simvastatin) 20 Mg Tab, 1 TAB PO DAILY 09/03/24 Dapagliflozin Propanediol (Farxiga) 10 Mg Tab, 1 TAB PO DAILY 09/03/24 Aspirin (Aspirin Low Dose) 81 Mg Chw, 81 MG PO DAILY, TAB.CHEW 09/03/24 Omeprazole (Omeprazole Dr) 20 Mg Cap, 1 CAP PO DAILY 09/03/24 Metformin Hydrochloride (Metformin Hcl) 850 Mg Tab, 1 TAB PO BID 09/30/22 Benazepril Hcl (Benazepril Hcl) 40 Mg Tab, 1 TAB PO DAILY 09/30/22 Amlodipine Besylate (Amlodipine Besylate) 10 Mg Tab, 1 TAB PO DAILY 09/30/22 Current Medications Current Medications Medications (Trade) Dose Ordered Sig/Abilio Route PRN Reason Start Time Stop Time Status Last Admin Octreotide Acetate 500 mcg/ Sodium Chloride 100 ml @ 10 mls/hr Q10H IV 09/03/24 00:45 09/03/24 12:03 Morphine Sulfate 4 mg Q4HP PRN IV PAIN SCALE 7 THRU 10 09/03/24 05:30 09/03/24 08:33 DC 09/03/24 05:42 Ondansetron HCl (Zofran) 4 mg Q4HPRN PRN IV NAUSEA / VOMITING 09/03/24 05:30 09/03/24 08:33 DC Sodium Chloride 1,000 ml @ 120 mls/hr Q8H20M IV 09/03/24 08:30 09/03/24 19:00 Ondansetron HCl (Zofran) 4 mg Q4HP PRN IV NAUSEA / VOMITING 09/03/24 08:30 09/03/24 13:17 Morphine Sulfate 4 mg Q4HPRN PRN IV SEVERE PAIN (7-10 PAIN SCALE) 09/03/24 08:45 09/03/24 13:22 Nitroglycerin (Ntrostat Sublingual) 0.4 mg Q5MINP PRN SL FOR CHEST PAIN 09/03/24 08:30 Morphine Sulfate 2 mg Q30M PRN IV FOR CHEST PAIN 09/03/24 08:30 Diagnostic Test (Pha) (Accu-Chek Comfort Curve T) 1 strip ACHS 09/03/24 11:30 09/03/24 17:45 Insulin Human Regular (InsuLIN R) ACHS SC 09/03/24 11:30 09/03/24 11:55 Dextrose 50 ml UD PRN IV Blood Sugar LESS THAN 60 09/03/24 08:30 Pantoprazole Sodium (Protonix) 40 mg DAILY IV 09/04/24 10:00 09/03/24 20:56 DC Hydralazine HCl (Apresoline Injection) 10 mg Q6HP PRN IV SBP>150 09/03/24 12:15 09/03/24 19:20 DC 09/03/24 15:00 Labetalol HCl (Labetalol HCl) 5 mg Q6HP PRN IV SBP>140 09/03/24 19:30 Pantoprazole Sodium (Protonix) 40 mg BID IV 09/03/24 22:00 Lorazepam (Ativan Inj) 1 mg ONCE PRN IV MRI 09/03/24 22:00 Review of Systems Constitutional: denies chills, denies fever, denies malaise Eyes: denies eye pain, denies vision change ENT: denies ear pain, denies headache, denies nasal congestion, denies painful swallowing, denies voice change Cardiovascular: denies chest pain, denies edema, denies orthopnea, denies palpitations, denies paroxysmal nocturnal dyspnea Respiratory: denies cough, denies shortness of breath Gastrointestinal: denies constipation, denies diarrhea, denies nausea, denies vomiting Genitourinary: denies dysuria, denies frequent urination, denies urethral discharge Musculoskeletal: denies back pain, denies joint pain, denies muscle pain Skin: denies bruising, denies itching, denies rash Neurological: denies focal weakness, denies headache, denies sensory changes Psychiatric: denies anxiety, denies depression Endocrine: denies polydipsia, denies polyuria Hematologic/Lymphatic: denies easy bleeding, denies easy bruising, denies enlarged lymph nodes Allergic/Immunologic: denies allergy, denies hives Vital Signs Vital Signs Date Time Temp Pulse Resp B/P (MAP) Pulse Ox O2 Delivery O2 Flow Rate FiO2 09/03/24 19:42 111 16 96 Room Air* 0 21 09/03/24 19:40 99.0 149/98 (115) 99.0 Physical Exam General Appearance: alert, no distress HEENT: EOMI, PERRLA, normal external inspect of ears, no icterus, no nasal drainage Neck: no carotid bruit, no jugular venous distention (JVD), no lymphadenopathy Chest: normal thorax Respiratory: clear to auscultation, normal air movement Cardiovascular: regular rate and rhythm, no diastolic murmur, no jugular venous distention (JVD), no rub, no systolic murmur Abdominal: soft, no hepatomegaly, no mass, no splenomegaly, no tenderness Genitourinary: grossly normal external Musculoskeletal: no joint tenderness, no swelling Extremities: normal pulses, no calf tenderness, no clubbing, no cyanosis, no edema Skin: no bruising, no jaundice, no rash Neurological: alert, No focal deficit Results Labs Test 09/03/24 17:43 09/03/24 12:46 09/03/24 04:36 09/03/24 03:31 Range/Units POC Glucose 149 H 70-106 mg/dl Sodium Level 148 #H 136-145 mmol/L Potassium Level 4.5 3.5-5.1 mmol/L Chloride Level 113 H 98-107 mmol/L Carbon Dioxide Level 23 20-31 mmol/L Anion Gap 12 5-15 Blood Urea Nitrogen 22 9-23 mg/dL Creatinine 1.81 H 0.700-1.30 mg/dL Glomerular Filtration Rate Calc 40 >90 mL/min BUN/Creatinine Ratio 12.2 10.0-20.0 Serum Glucose 223 H 74-106 mg/dL Calcium Level 8.6 L 8.7-10.4 mg/dL Total Bilirubin 0.6 0.2-1.0 mg/dL Aspartate Amino Transferase (AST) 17 13-40 U/L Alanine Aminotransferase (ALT) 19 7-40 U/L Alkaline Phosphatase 66 46-116 U/L Lactate Dehydrogenase 203 120-246 U/L Total Protein 6.3 5.7-8.2 g/dL Albumin 3.6 3.2-4.8 g/dL Beta-Hydroxybutyric Acid 1.243 H < 0.4 mmol/L Urine Color Light-yellow Yellow Urine Clarity Clear Clear Urine pH 6.5 5.0-9.0 Urine Specific [place] 1.047 H 1.001-1.035 Urine Protein 2+ H Negative Urine Ketones 1+ H Negative Urine Blood Negative Negative /uL Urine Nitrite Negative Negative Urine Bilirubin Negative Negative Urine Urobilinogen Normal Negative mg/dL Urine Leukocyte Esterase Negative Negative /uL Urine RBC 1 0 - 3 /hpf Urine WBC 2 0 - 3 /hpf Urine Squamous Epithelial Cells Few <5 /hpf Urine Bacteria None seen None Seen /hpf Urine Glucose 4+ H Normal mg/dL Lactic Acid Level 4.6 *H 0.4-2.0 mmol/L Test 09/03/24 02:43 09/03/24 01:30 09/03/24 00:30 Range/Units Blood Gas Specimen Type Venous Blood Gas Sample Site Vbg - n/a Blood Gas Patient Temperature 37.0 Arterial Blood Date Drawn [id number] Syd Test N/a Venous Blood pH 7.363 7.320-7.430 Venous Blood pCO2 at Patient Temp 46.1 38.0-54.0 mmHg Venous Blood pO2 at Patient Temp 41.8 23.0-48.0 mmHg Venous Blood HCO3 25.6 22.0-29.0 mmol/L Venous Bld O2 Saturation (Measured) 72.6 60.0-85.0 % Venous Blood Base Excess -0.1 -2.0-3.0 mmol/L Venous Blood Total Hemoglobin 13.6 13.5-17.5 g/dL Venous Blood Oxyhemoglobin 71.1 0.0-79.0 % Venous Blood Carboxyhemoglobin 1.3 0.5-1.5 % Venous Blood Methemoglobin 0.7 0.0-1.5 % Blood Gas Liter Flow 0.00 Blood Gas Modality Room air FiO2 % 21.0 Specimen Drawn By [facility] Blood Gas Comments venous Troponin I High Sensitivity 7 </=54 ng/L White Blood Count 10.7 4.4-10.8 10^3/uL Red Blood Count 4.83 4.5-5.90 10^6/uL Hemoglobin 14.4 13.5-17.5 g/dL Hematocrit 44.4 41.0-53.0 % Mean Corpuscular Volume 91.9 80.0-100.0 fL Mean Corpuscular Hemoglobin 29.8 28.0-32.0 pg Mean Corpuscular Hemoglobin Concent 32.5 32.0-36.0 g/dL Red Cell Distribution Width 15.3 H 11.8-14.3 % Platelet Count 212 140-450 10^3/uL Mean Platelet Volume 9.1 6.9-10.8 fL Neutrophils (%) (Auto) 73.9 37.0-80.0 % Lymphocytes (%) (Auto) 17.9 10.0-50.0 % Monocytes (%) (Auto) 7.7 0.0-12.0 % Eosinophils (%) (Auto) 0.2 0.0-7.0 % Basophils (%) (Auto) 0.3 0.0-2.0 % Neutrophils # (Auto) 7.9 1.6-8.6 10 ^3/uL Lymphocytes # (Auto) 1.9 0.4-5.4 10 ^3/uL Monocytes # (Auto) 0.8 0-1.3 10 ^3/uL Eosinophils # (Auto) 0 0-0.8 10 ^3/uL Basophils # (Auto) 0 0-0.2 10 ^3/uL Nucleated Red Blood Cells 0.1 % Prothrombin Time 11.3 9.3-11.8 sec Prothrombin Time INR 1.07 0.9-1.15 Activated Partial Thromboplast Time 22.9 L 24.5-34.5 SEC B-Type Natriuretic Peptide 17.98 0-100 pg/mL Lipase 49 12-53 U/L Plan 1. Metabolic encephalopathy Monitor, neurology consult 2. Upper GI bleed Monitor, GI consult, surgical consult, Sandostatin gtt 3. Large hiatal hernia Monitor, surgical consult 4. Acute blood loss anemia Monitor, daily labs 5. DM II & hyperglycemia Monitor, insulin ss 6. Lactic acidosis Monitor, IV fluids, PPI Plan discussed with: Patient, Other MARIONVITORFAIZAN Schmitz NP Sep 03, 2024 08:32
[2024-09-03] MEDS: SODIUM CHLORIDE 0.9% 1,000 ML IV SCH (08:57)
[2024-09-03] MEDS: ACCU-CHEK COMFORT CURVE STRIP VI SCH (11:51)
[2024-09-03] MEDS: InsuLIN REG 1unit/0.01ml Soln (100units/ml) SC SCH (11:55)
[2024-09-03] MEDS: ONDANSETRON HCL 4 MG/2 ML VIAL IV PRN (13:17)
[2024-09-03 13:24] LABS: Alanine Aminotransferase 19 U/L (7-40); Albumin 3.6 g/dL (3.2-4.8); Alkaline Phosphatase 66 U/L (46-116); Anion Gap 12 (5-15); Aspartate Aminotransferase 17 U/L (13-40); BUN/Creatinine Ratio 12.2 (10.0-20.0); Bilirubin, Total 0.6 mg/dL (0.2-1.0); Blood Urea Nitrogen 22 mg/dL (9-23); Calcium 8.6 mg/dL (8.7-10.4); Carbon Dioxide 23 mmol/L (20-31); Chloride 113 mmol/L (98-107); Glucose 223 mg/dL (74-106); Potassium 4.5 mmol/L (3.5-5.1); Total Protein 6.3 g/dL (5.7-8.2)
[2024-09-03 13:26] LABS: Sodium 148 mmol/L (136-145)
[2024-09-03] MEDS: hydrALAZINE HCL 20 MG/ML VL IV PRN (15:00)
[2024-09-03 19:42] VITALS: PULSE 111; RESP 16; O2SAT 96
--- NOTE | 2024-09-03 20:57 | DVHINCON2 ---
Date of service: Sep 03, 2024 (Pt seen in ER at 230pm) Referring Physician Chantel Chicas Reason for Consultation Coffee ground emesis History of Present Illness 69-year-old male brought in by EMS presents with a chief complaint of abdominal pain, nausea, vomiting x 1900 this evening. Per EMS, called 911 after patient began to have coffee ground emesis and abdominal pain, and appeared "altered". Patient is A&Ox4 at this time and is not altered. Patient is having active vomiting of coffee ground emesis and reports that his pain is localized to his epigastric region, non-radiating, . Patient was feeling better by the time I saw him. He is still abdominal pain was better and he had no further vomiting. NG tube output was bilious. Patient stated he had a prior colonoscopy last year. He actually stated he had an endoscopy about two days ago at our hospital but I found records from 2022 Operative Report DATE OF OPERATION: 08/10/23 PROCEDURE: Colonoscopy with snare polypectomy. PREOPERATIVE INDICATION: The patient is a 68 -year-old male undergoing colonoscopy for anemia and drop in hemoglobin hematocrit POSTOPERATIVE DIAGNOSES: 1. 1.5 cm benign-appearing sigmoid polyp was seen removed by snare polypectomy 2. 4 small benign-appearing rectosigmoid hyperplastic polyps were seen and removed by cold biopsy forceps 3. Mild sigmoid diverticular disease 4. 1+ internal hemorrhoids otherwise normal examination up to the terminal ileum Operative Report DATE OF OPERATION: 08/06/23 PROCEDURE: Upper Endoscopy with biopsy. PREOPERATIVE INDICATION: The patient is a 68 -year-old male undergoing endoscopy for coffee-ground emesis and history of large hiatal hernia POSTOPERATIVE DIAGNOSES: 1. Patient has a 7-8 cm sliding-type hiatal hernia which is mostly supra diaphragmatic with a paraesophageal component 2. Minimal gastritis otherwise normal examination up to the second and third part of the duodenum PROCEDURE PERFORMED BY: Karel Pritchard Past Medical History Diabetes Congestive heart failure Hypercholesterolemia Hypertension Past Surgical History Testicular surgery Family History: Cardiovascular disease G8 BROTHER Cerebrovascular accident (CVA) G8 MOTHER FH: heart failure G8 FATHER Hypertension G8 MOTHER Allergies: Coded Allergies: NO KNOWN ALLERGIES (Unverified , 06/03/16) Home Meds Active Scripts Pantoprazole Sodium Sesquihydr (Protonix) 40 Mg Tab, 40 MG PO DAILY for 30 Days, #30 TAB Prov:MARION ORTIZ RESIDENT 08/10/23 Ferrous Sulfate (FERROUS SULFATE) 325 Mg Tb, 1 TAB PO DAILY for 90 Days, #90 TAB 1 Refill Prov:GEORGE ALEMAN,MARION RESIDENT 08/10/23 Reported Medications Metformin Hydrochloride (Metformin Hcl) 850 Mg Tab, 1 TAB PO BID 09/30/22 Benazepril Hcl (Benazepril Hcl) 40 Mg Tab, 1 TAB PO DAILY 09/30/22 Amlodipine Besylate (Amlodipine Besylate) 10 Mg Tab, 1 TAB PO DAILY 09/30/22 Current Medications Current Medications Medications (Trade) Dose Ordered Sig/Abilio Route PRN Reason Start Time Stop Time Status Last Admin Octreotide Acetate 500 mcg/ Sodium Chloride 100 ml @ 10 mls/hr Q10H IV 09/03/24 00:45 09/03/24 12:03 Morphine Sulfate 4 mg Q4HP PRN IV PAIN SCALE 7 THRU 10 09/03/24 05:30 09/03/24 08:33 DC 09/03/24 05:42 Ondansetron HCl (Zofran) 4 mg Q4HPRN PRN IV NAUSEA / VOMITING 09/03/24 05:30 09/03/24 08:33 DC Sodium Chloride 1,000 ml @ 120 mls/hr Q8H20M IV 09/03/24 08:30 09/03/24 19:00 Ondansetron HCl (Zofran) 4 mg Q4HP PRN IV NAUSEA / VOMITING 09/03/24 08:30 09/03/24 13:17 Morphine Sulfate 4 mg Q4HPRN PRN IV SEVERE PAIN (7-10 PAIN SCALE) 09/03/24 08:45 09/03/24 13:22 Nitroglycerin (Ntrostat Sublingual) 0.4 mg Q5MINP PRN SL FOR CHEST PAIN 09/03/24 08:30 Morphine Sulfate 2 mg Q30M PRN IV FOR CHEST PAIN 09/03/24 08:30 Diagnostic Test (Pha) (Accu-Chek Comfort Curve T) 1 strip ACHS 09/03/24 11:30 09/03/24 17:45 Insulin Human Regular (InsuLIN R) ACHS SC 09/03/24 11:30 09/03/24 11:55 Dextrose 50 ml UD PRN IV Blood Sugar LESS THAN 60 09/03/24 08:30 Pantoprazole Sodium (Protonix) 40 mg DAILY IV 09/04/24 10:00 Hydralazine HCl (Apresoline Injection) 10 mg Q6HP PRN IV SBP>150 09/03/24 12:15 09/03/24 19:20 DC 09/03/24 15:00 Labetalol HCl (Labetalol HCl) 5 mg Q6HP PRN IV SBP>140 09/03/24 19:30 Review of Systems As per HPI Vital Signs Vital Signs Date Time Temp Pulse Resp B/P (MAP) Pulse Ox O2 Delivery O2 Flow Rate FiO2 09/03/24 19:42 111 16 96 Room Air* 0 21 09/03/24 19:40 99.0 149/98 (115) 99.0 Physical Exam General Appearance: Mild Distress, NG tube in place draining bilious material, male HEENT: Normal ENT Inspection, Pharynx Normal, TMs Normal Neck: Full Range of Motion, Non-Tender, Normal, Normal Inspection Respiratory: Chest Non-Tender, Lungs Clear, No Accessory Muscle Use, No Respiratory Distress, Normal Breath Sounds Cardiovascular: No Edema, No JVD, No Murmur, No Gallop, Normal Peripheral Pulses, Regular Rate/Rhythm Gastrointestinal: No Organomegaly, Non Tender, No Pulsatile Mass, Normal Bowel Sounds, Soft Extremities: No calf tenderness, Normal capillary refill, Normal inspection, Normal range of motion, Non-tender, No pedal edema Neurologic: Alert,No Motor Deficits, Normal Affect, Normal Mood, No Sensory Deficits Labs/Diagnostic Data Labs Test 09/03/24 17:43 09/03/24 12:46 09/03/24 04:36 09/03/24 03:31 Range/Units POC Glucose 149 H 70-106 mg/dl Sodium Level 148 #H 136-145 mmol/L Potassium Level 4.5 3.5-5.1 mmol/L Chloride Level 113 H 98-107 mmol/L Carbon Dioxide Level 23 20-31 mmol/L Anion Gap 12 5-15 Blood Urea Nitrogen 22 9-23 mg/dL Creatinine 1.81 H 0.700-1.30 mg/dL Glomerular Filtration Rate Calc 40 >90 mL/min BUN/Creatinine Ratio 12.2 10.0-20.0 Serum Glucose 223 H 74-106 mg/dL Calcium Level 8.6 L 8.7-10.4 mg/dL Total Bilirubin 0.6 0.2-1.0 mg/dL Aspartate Amino Transferase (AST) 17 13-40 U/L Alanine Aminotransferase (ALT) 19 7-40 U/L Alkaline Phosphatase 66 46-116 U/L Lactate Dehydrogenase 203 120-246 U/L Total Protein 6.3 5.7-8.2 g/dL Albumin 3.6 3.2-4.8 g/dL Beta-Hydroxybutyric Acid 1.243 H < 0.4 mmol/L Urine Color Light-yellow Yellow Urine Clarity Clear Clear Urine pH 6.5 5.0-9.0 Urine Specific [place] 1.047 H 1.001-1.035 Urine Protein 2+ H Negative Urine Ketones 1+ H Negative Urine Blood Negative Negative /uL Urine Nitrite Negative Negative Urine Bilirubin Negative Negative Urine Urobilinogen Normal Negative mg/dL Urine Leukocyte Esterase Negative Negative /uL Urine RBC 1 0 - 3 /hpf Urine WBC 2 0 - 3 /hpf Urine Squamous Epithelial Cells Few <5 /hpf Urine Bacteria None seen None Seen /hpf Urine Glucose 4+ H Normal mg/dL Lactic Acid Level 4.6 *H 0.4-2.0 mmol/L Test 09/03/24 02:43 09/03/24 01:30 09/03/24 00:30 Range/Units Blood Gas Specimen Type Venous Blood Gas Sample Site Vbg - n/a Blood Gas Patient Temperature 37.0 Arterial Blood Date Drawn [id number] Syd Test N/a Venous Blood pH 7.363 7.320-7.430 Venous Blood pCO2 at Patient Temp 46.1 38.0-54.0 mmHg Venous Blood pO2 at Patient Temp 41.8 23.0-48.0 mmHg Venous Blood HCO3 25.6 22.0-29.0 mmol/L Venous Bld O2 Saturation (Measured) 72.6 60.0-85.0 % Venous Blood Base Excess -0.1 -2.0-3.0 mmol/L Venous Blood Total Hemoglobin 13.6 13.5-17.5 g/dL Venous Blood Oxyhemoglobin 71.1 0.0-79.0 % Venous Blood Carboxyhemoglobin 1.3 0.5-1.5 % Venous Blood Methemoglobin 0.7 0.0-1.5 % Blood Gas Liter Flow 0.00 Blood Gas Modality Room air FiO2 % 21.0 Specimen Drawn By [facility] Blood Gas Comments venous Troponin I High Sensitivity 7 </=54 ng/L White Blood Count 10.7 4.4-10.8 10^3/uL Red Blood Count 4.83 4.5-5.90 10^6/uL Hemoglobin 14.4 13.5-17.5 g/dL Hematocrit 44.4 41.0-53.0 % Mean Corpuscular Volume 91.9 80.0-100.0 fL Mean Corpuscular Hemoglobin 29.8 28.0-32.0 pg Mean Corpuscular Hemoglobin Concent 32.5 32.0-36.0 g/dL Red Cell Distribution Width 15.3 H 11.8-14.3 % Platelet Count 212 140-450 10^3/uL Mean Platelet Volume 9.1 6.9-10.8 fL Neutrophils (%) (Auto) 73.9 37.0-80.0 % Lymphocytes (%) (Auto) 17.9 10.0-50.0 % Monocytes (%) (Auto) 7.7 0.0-12.0 % Eosinophils (%) (Auto) 0.2 0.0-7.0 % Basophils (%) (Auto) 0.3 0.0-2.0 % Neutrophils # (Auto) 7.9 1.6-8.6 10 ^3/uL Lymphocytes # (Auto) 1.9 0.4-5.4 10 ^3/uL Monocytes # (Auto) 0.8 0-1.3 10 ^3/uL Eosinophils # (Auto) 0 0-0.8 10 ^3/uL Basophils # (Auto) 0 0-0.2 10 ^3/uL Nucleated Red Blood Cells 0.1 % Prothrombin Time 11.3 9.3-11.8 sec Prothrombin Time INR 1.07 0.9-1.15 Activated Partial Thromboplast Time 22.9 L 24.5-34.5 SEC B-Type Natriuretic Peptide 17.98 0-100 pg/mL Lipase 49 12-53 U/L CT SCAN ABD PELVIS IMPRESSION: 1. Gastrointestinal Findings: Large hiatal hernia (12.1 cm) containing almost the entire stomach. 2. Moderate fecal residue in the large bowel loops with fecal impaction in the distal sigmoid colon and rectum. Scattered diverticulosis of the sigmoid colon without evidence of diverticulitis. 3. Liver and Spleen: Mild fatty infiltration of the liver. 4. Tiny calcified granulomas in the spleen. 5. Renal Findings: Small 10 mm cortical cyst in the left kidney interpolar region. No concerning features noted. 6. Hernias: Small omental fat-containing right inguinal hernia. 7. Small omental fat-containing umbilical hernia (18 x 12 mm). 8. Spinal Findings: Mild lumbar dextroscoliosis with vacuum disc changes at L3- L4, L4-L5, and L5-S1. 9. Multilevel degenerative facet arthropathy. 10. Degenerative changes in the bilateral sacroiliac and hip joints. 11. Pulmonary Findings: Linear fibrotic bands in the bilateral lower lobes. 2. Small calcified granuloma in the right lower lobe, with no follow-up re quired. Problems(with codes): (1) Coffee ground emesis (2) Hiatal hernia without gangrene or obstruction (3) Lactic acidosis (4) Hepatitis C antibody positive in blood Plan/Recommendation Plan At this time patient is hemodynamically stable and he has no active bleeding but old coffee-ground Patient has a large 8-10 cm sliding-type hiatal hernia with paraesophageal component He is likely bleeding from the hiatal hernia or erosive esophagitis Continue supportive care Monitor labs Protonix 40 mg IV twice a day Carafate 1 g p.o. 4 times a day DC aspirin NSAIDs smoking alcohol I will follow up patient with you and if clinically required a possible repeat endoscopy to be scheduled on Plan discussed with: Patient KAREL PRITCHARD MD Sep 03, 2024 20:57
[2024-09-03] MEDS ORDERED: DAPA1TAB4 PO (21:25)
[2024-09-03] MEDS ORDERED: SIMV20TA20 PO (21:25)
[2024-09-03] MEDS ORDERED: OMEP1CAP70 PO (21:25)
[2024-09-03] MEDS ORDERED: ASPI81CH59 PO (21:25)
--- NOTE | 2024-09-03 21:29 | DVHINCON2 ---
Date of service: Sep 03, 2024 Referring Physician Chantel Reason for Consultation Metabolic encephalopathy History of Present Illness Mr. Goldsmith is a 69 years old right-handed gentleman with a history of hypertension, diabetes, dyslipidemia, [facility] with a chief complaint of abdominal pain, nausea, vomiting. At that time, he is alert and fully oriented, he provided the following history I saw him on 08/20/23 for syncope On 09/01/2024, the patient was developed nausea, abdominal pain, and he vomited a lot of coffee-ground emesis, he also reports, when he was standing up, he had dizziness/lightheadedness, follow up passing out and waking up on the floor, he reports passing out very briefly, and on waking up he was consciousness everything, but with general weakness, diffuse code sweating, On 08/20/2023, when he was getting for bathroom, he developed dizziness, lightheadedness, general weakness, increased sweating, but he did not pass out, soon after, he vomited dark vomitus and was found to have GI bleeding Urinalysis, 09/03/2024: WBC: 2, urine leukocyte esterase: Negative CBC, 09/03/2024: unremarkable Na, 09/03/2024: 148 Anion gap, 09/03/2024: 16 Glucose, 09/03/2024: 309 HGB A1c, 07/2023: 6.1 BUN/CR, 09/03/2024: 22/1.81 Liver function tests, 09/03/2024: Unremarkable Lactic acid, 09/03/2024: 649, 4.6 Beta hydroxybutyric acid 09/03/2024: 1.243 Vitamin B12, 04/2024: 622 TSH, 04/2020 4:2.29 CT head, 08/03/2023: MRI head, 08/03/2023: No acute findings. Small vessel chronic ischemic changes Past Medical History Hypertension, diabetes, dyslipidemia, no history of heart disease, stroke or seizure disorder Past Surgical History No surgeries Family History: Cardiovascular disease G8 BROTHER Cerebrovascular accident (CVA) G8 MOTHER FH: heart failure G8 FATHER Hypertension G8 MOTHER Family History Hypertension, diabetes, heart disease, stroke Social History He was a tobacco smoker, but no history of alcohol recreational substance abuse Allergies: Coded Allergies: NO KNOWN ALLERGIES (Unverified , 06/03/16) Home Meds Reported Medications Simvastatin (Simvastatin) 20 Mg Tab, 1 TAB PO DAILY 09/03/24 Dapagliflozin Propanediol (Farxiga) 10 Mg Tab, 1 TAB PO DAILY 09/03/24 Aspirin (Aspirin Low Dose) 81 Mg Chw, 81 MG PO DAILY, TAB.CHEW 09/03/24 Omeprazole (Omeprazole Dr) 20 Mg Cap, 1 CAP PO DAILY 09/03/24 Metformin Hydrochloride (Metformin Hcl) 850 Mg Tab, 1 TAB PO BID 09/30/22 Benazepril Hcl (Benazepril Hcl) 40 Mg Tab, 1 TAB PO DAILY 09/30/22 Amlodipine Besylate (Amlodipine Besylate) 10 Mg Tab, 1 TAB PO DAILY 09/30/22 Current Medications Current Medications Medications (Trade) Dose Ordered Sig/Abilio Route PRN Reason Start Time Stop Time Status Last Admin Octreotide Acetate 500 mcg/ Sodium Chloride 100 ml @ 10 mls/hr Q10H IV 09/03/24 00:45 09/03/24 12:03 Morphine Sulfate 4 mg Q4HP PRN IV PAIN SCALE 7 THRU 10 09/03/24 05:30 09/03/24 08:33 DC 09/03/24 05:42 Ondansetron HCl (Zofran) 4 mg Q4HPRN PRN IV NAUSEA / VOMITING 09/03/24 05:30 09/03/24 08:33 DC Sodium Chloride 1,000 ml @ 120 mls/hr Q8H20M IV 09/03/24 08:30 09/03/24 19:00 Ondansetron HCl (Zofran) 4 mg Q4HP PRN IV NAUSEA / VOMITING 09/03/24 08:30 09/03/24 13:17 Morphine Sulfate 4 mg Q4HPRN PRN IV SEVERE PAIN (7-10 PAIN SCALE) 09/03/24 08:45 09/03/24 13:22 Nitroglycerin (Ntrostat Sublingual) 0.4 mg Q5MINP PRN SL FOR CHEST PAIN 09/03/24 08:30 Morphine Sulfate 2 mg Q30M PRN IV FOR CHEST PAIN 09/03/24 08:30 Diagnostic Test (Pha) (Accu-Chek Comfort Curve T) 1 strip ACHS 09/03/24 11:30 09/03/24 17:45 Insulin Human Regular (InsuLIN R) ACHS SC 09/03/24 11:30 09/03/24 11:55 Dextrose 50 ml UD PRN IV Blood Sugar LESS THAN 60 09/03/24 08:30 Pantoprazole Sodium (Protonix) 40 mg DAILY IV 09/04/24 10:00 09/03/24 20:56 DC Hydralazine HCl (Apresoline Injection) 10 mg Q6HP PRN IV SBP>150 09/03/24 12:15 09/03/24 19:20 DC 09/03/24 15:00 Labetalol HCl (Labetalol HCl) 5 mg Q6HP PRN IV SBP>140 09/03/24 19:30 Pantoprazole Sodium (Protonix) 40 mg BID IV 09/03/24 22:00 UNV Review of Systems As above, the other systems are negative Vital Signs Vital Signs Date Time Temp Pulse Resp B/P (MAP) Pulse Ox O2 Delivery O2 Flow Rate FiO2 09/03/24 19:42 111 16 96 Room Air* 0 21 09/03/24 19:40 99.0 149/98 (115) 99.0 Physical Exam GENERAL EXAM: General: the patient is well developed and nourished. No acute distress. HEENT: Normocephalic, neck is supple, no carotid bruits. No mass RESPIRATORY: Normal respiratory effort with symmetrical lung expansion. Lungs clear to auscultation. CARDIOVASCULAR: Regular rate and rhythm with no murmurs. S1, S2. ABDOMEN: Soft, nontender, normal bowel sound NEUROLOGICAL: MENTAL STATUS: Awake and alert. Oriented to person, place, time and general ci rcumstances. Able to give personal history SPEECH, LANGUAGE, HIGHER CORTICAL FUNCTION: no aphasia or dysathria. CRANIAL NERVES: #2: Intact visual godfrey to confrontation. The optic discs were sharp #3,4,6: Pupils are equal, round and reactive. EOMs full and conjugate. No nystagmus. #5: Facial sensation intact in all three divisions bilaterally. Mandibular strength intact. #7: Facial muscles symmetrical and strength intact. #8: Hearing grossly normal to voice. #9,10: Uvula and soft palate rise in the midline. Swallow and voice are normal. #11: Trapezius and sternomastoid strength intact bilaterally. #12: Tongue midline. No fasciculations or atrophy. SENSATION: Sensation to touch and pinprick is normal. MOTOR: Normal tone in the upper and lower extremity. Normal muscle bulk. No fasciculations. No abnormal movements or posturing. Muscle strength of the major groups in the upper extremities is 5/5. Muscle strength of the major groups in the lower extremities is 5/5. REFLEXES: Deep tendon reflexes are symmetrical. No pathological reflexes. CEREBELLAR/COORDINATION: Finger to nose is normal bilaterally. GAIT/STATION: deferred Labs/Diagnostic Data Labs Test 09/03/24 17:43 09/03/24 12:46 09/03/24 04:36 09/03/24 03:31 Range/Units POC Glucose 149 H 70-106 mg/dl Sodium Level 148 #H 136-145 mmol/L Potassium Level 4.5 3.5-5.1 mmol/L Chloride Level 113 H 98-107 mmol/L Carbon Dioxide Level 23 20-31 mmol/L Anion Gap 12 5-15 Blood Urea Nitrogen 22 9-23 mg/dL Creatinine 1.81 H 0.700-1.30 mg/dL Glomerular Filtration Rate Calc 40 >90 mL/min BUN/Creatinine Ratio 12.2 10.0-20.0 Serum Glucose 223 H 74-106 mg/dL Calcium Level 8.6 L 8.7-10.4 mg/dL Total Bilirubin 0.6 0.2-1.0 mg/dL Aspartate Amino Transferase (AST) 17 13-40 U/L Alanine Aminotransferase (ALT) 19 7-40 U/L Alkaline Phosphatase 66 46-116 U/L Lactate Dehydrogenase 203 120-246 U/L Total Protein 6.3 5.7-8.2 g/dL Albumin 3.6 3.2-4.8 g/dL Beta-Hydroxybutyric Acid 1.243 H < 0.4 mmol/L Urine Color Light-yellow Yellow Urine Clarity Clear Clear Urine pH 6.5 5.0-9.0 Urine Specific [place] 1.047 H 1.001-1.035 Urine Protein 2+ H Negative Urine Ketones 1+ H Negative Urine Blood Negative Negative /uL Urine Nitrite Negative Negative Urine Bilirubin Negative Negative Urine Urobilinogen Normal Negative mg/dL Urine Leukocyte Esterase Negative Negative /uL Urine RBC 1 0 - 3 /hpf Urine WBC 2 0 - 3 /hpf Urine Squamous Epithelial Cells Few <5 /hpf Urine Bacteria None seen None Seen /hpf Urine Glucose 4+ H Normal mg/dL Lactic Acid Level 4.6 *H 0.4-2.0 mmol/L Test 09/03/24 02:43 09/03/24 01:30 09/03/24 00:30 Range/Units Blood Gas Specimen Type Venous Blood Gas Sample Site Vbg - n/a Blood Gas Patient Temperature 37.0 Arterial Blood Date Drawn [id number] Syd Test N/a Venous Blood pH 7.363 7.320-7.430 Venous Blood pCO2 at Patient Temp 46.1 38.0-54.0 mmHg Venous Blood pO2 at Patient Temp 41.8 23.0-48.0 mmHg Venous Blood HCO3 25.6 22.0-29.0 mmol/L Venous Bld O2 Saturation (Measured) 72.6 60.0-85.0 % Venous Blood Base Excess -0.1 -2.0-3.0 mmol/L Venous Blood Total Hemoglobin 13.6 13.5-17.5 g/dL Venous Blood Oxyhemoglobin 71.1 0.0-79.0 % Venous Blood Carboxyhemoglobin 1.3 0.5-1.5 % Venous Blood Methemoglobin 0.7 0.0-1.5 % Blood Gas Liter Flow 0.00 Blood Gas Modality Room air FiO2 % 21.0 Specimen Drawn By [facility] Blood Gas Comments venous Troponin I High Sensitivity 7 </=54 ng/L White Blood Count 10.7 4.4-10.8 10^3/uL Red Blood Count 4.83 4.5-5.90 10^6/uL Hemoglobin 14.4 13.5-17.5 g/dL Hematocrit 44.4 41.0-53.0 % Mean Corpuscular Volume 91.9 80.0-100.0 fL Mean Corpuscular Hemoglobin 29.8 28.0-32.0 pg Mean Corpuscular Hemoglobin Concent 32.5 32.0-36.0 g/dL Red Cell Distribution Width 15.3 H 11.8-14.3 % Platelet Count 212 140-450 10^3/uL Mean Platelet Volume 9.1 6.9-10.8 fL Neutrophils (%) (Auto) 73.9 37.0-80.0 % Lymphocytes (%) (Auto) 17.9 10.0-50.0 % Monocytes (%) (Auto) 7.7 0.0-12.0 % Eosinophils (%) (Auto) 0.2 0.0-7.0 % Basophils (%) (Auto) 0.3 0.0-2.0 % Neutrophils # (Auto) 7.9 1.6-8.6 10 ^3/uL Lymphocytes # (Auto) 1.9 0.4-5.4 10 ^3/uL Monocytes # (Auto) 0.8 0-1.3 10 ^3/uL Eosinophils # (Auto) 0 0-0.8 10 ^3/uL Basophils # (Auto) 0 0-0.2 10 ^3/uL Nucleated Red Blood Cells 0.1 % Prothrombin Time 11.3 9.3-11.8 sec Prothrombin Time INR 1.07 0.9-1.15 Activated Partial Thromboplast Time 22.9 L 24.5-34.5 SEC B-Type Natriuretic Peptide 17.98 0-100 pg/mL Lipase 49 12-53 U/L Assessment Syncopal event, likely secondary to GI bleeding, nausea, vomiting Dark vomitus, to rule out GI bleeding Anemia Plan/Recommendation Monitoring Supportive treatment Telemetry Follow-up labs EEG MRI brain scan Syncope precautions discussed GI consultation Prognosis: Poor This medical document was created using an electronic medical record system with [employer] dictation system. Although this document has been carefully reviewed, there may still be some phonetic and typographical errors. These areas are purely typographical due to imperfections of the software programs, and do not reflect any compromise in the patient's medical care. Plan discussed with: Patient, Other GRACIE UMAÑA MD Sep 03, 2024 21:29
[2024-09-03] MEDS ORDERED: LORazepam 2MG/ML-1ML VIAL IV PRN (22:00)
[2024-09-03] MEDS: PANTOPRAZOLE 40 MG/10 ML VIAL INJ IV SCH (23:57)
[2024-09-04] VITALS (8 sets, daily range): BP systolic 106–214; BP diastolic 73–108; PULSE 76–107; RESP 16–22; TEMP 97.8–98.9; O2SAT 93–98
[2024-09-04] MEDS: LABETALOL HCL 20 MG/4 ML VL IV PRN (00:40)
[2024-09-04 06:30] LABS: Basophils # (auto) 0 10 ^3/uL (0-0.2); Basophils % (auto) 0.4 % (0.0-2.0); Eosinophils # (auto) 0 10 ^3/uL (0-0.8); Eosinophils % (auto) 0.2 % (0.0-7.0); Hematocrit 32.8 % (41.0-53.0); Hemoglobin 10.7 g/dL (13.5-17.5); Lymphocytes # (auto) 1.6 10 ^3/uL (0.4-5.4); Mean Corpuscular Hemoglobin 30.4 pg (28.0-32.0); Mean Corpuscular Hgb Conc. 32.5 g/dL (32.0-36.0); Mean Corpuscular Volume 93.3 fL (80.0-100.0); Monocytes # (auto) 0.8 10 ^3/uL (0-1.3); Monocytes % (auto) 11.7 % (0.0-12.0); Neutrophils # (auto) 4.5 10 ^3/uL (1.6-8.6); Neutrophils % (auto) 64.7 % (37.0-80.0); Platelet Count (auto) 192 10^3/uL (140-450); Red Blood Cells 3.51 10^6/uL (4.5-5.90); Red Cell Distribution Width 15.5 % (11.8-14.3); White Blood Cell 6.9 10^3/uL (4.4-10.8)
[2024-09-04 06:46] LABS: Alanine Aminotransferase 12 U/L (7-40); Alkaline Phosphatase 59 U/L (46-116); Anion Gap 13 (5-15); BUN/Creatinine Ratio 11.1 (10.0-20.0); Blood Urea Nitrogen 17 mg/dL (9-23); Calcium 8.5 mg/dL (8.7-10.4); Carbon Dioxide 22 mmol/L (20-31); Chloride 114 mmol/L (98-107); Glucose 134 mg/dL (74-106); Potassium 4.2 mmol/L (3.5-5.1); Sodium 149 mmol/L (136-145)
[2024-09-04 06:47] LABS: Albumin 3.5 g/dL (3.2-4.8); Aspartate Aminotransferase 18 U/L (13-40); Bilirubin, Total 0.8 mg/dL (0.2-1.0); Total Protein 6.1 g/dL (5.7-8.2)
--- NOTE | 2024-09-04 09:11 | DVHINCON2 ---
Date of service: Sep 04, 2024 Reason for Consultation abdominal pain, multiple hernias History of Present Illness History Source: Patient, RN Notes, MD Notes Exam Limitations: No limitations HPI 69 year old male presented to the ED with epigastric pain 07/31 associated with nausea and coffee ground emesis. patient has several multiple hernias and surgery was consulted. Home Meds Reported Medications Simvastatin (Simvastatin) 20 Mg Tab, 1 TAB PO DAILY 09/03/24 Dapagliflozin Propanediol (Farxiga) 10 Mg Tab, 1 TAB PO DAILY 09/03/24 Aspirin (Aspirin Low Dose) 81 Mg Chw, 81 MG PO DAILY, TAB.CHEW 09/03/24 Omeprazole (Omeprazole Dr) 20 Mg Cap, 1 CAP PO DAILY 09/03/24 Metformin Hydrochloride (Metformin Hcl) 850 Mg Tab, 1 TAB PO BID 09/30/22 Benazepril Hcl (Benazepril Hcl) 40 Mg Tab, 1 TAB PO DAILY 09/30/22 Amlodipine Besylate (Amlodipine Besylate) 10 Mg Tab, 1 TAB PO DAILY 09/30/22 Chief Complaint of Abdominal/F: Abdominal pain Past Medical History Patient Family History: Cardiovascular disease G8 BROTHER Cerebrovascular accident (CVA) G8 MOTHER FH: heart failure G8 FATHER Hypertension G8 MOTHER Review of Systems Constitutional: No symptom reported Ears, Nose, & Throat: No symptom reported Eyes: No symptom reported Pulmonary/Respiratory: No symptom reported Cardiovascular: No symptom reported Gastrointestinal: Nausea, Abdominal Pain Genitourinary: No symptom reported Musculoskeletal: No symptom reported Skin: No symptom reported Psychiatric: No symptom reported Endocrine: No symptom reported Hemotologic/Lymphatic: No symptom reported H&P Exam Vital Signs Vital Signs Date Time Temp Pulse Resp B/P (MAP) Pulse Ox O2 Delivery O2 Flow Rate FiO2 09/04/24 08:00 80 16 98 Room Air* 0 21 09/04/24 05:00 98.5 153/108 (123) 98.5 General Appeara: Well developed, Well nourished Head Exam: Normal inspection Nasal Exam: Normal inspection Abdominal Exam: Soft Abdominal Pain Onset Location: Generalized abdomen Labs/Xrays Labs Test 09/04/24 05:59 09/04/24 05:52 09/03/24 12:46 09/03/24 04:36 Range/Units White Blood Count 6.9 # 4.4-10.8 10^3/uL Red Blood Count 3.51 L 4.5-5.90 10^6/uL Hemoglobin 10.7 #L 13.5-17.5 g/dL Hematocrit 32.8 #L 41.0-53.0 % Mean Corpuscular Volume 93.3 80.0-100.0 fL Mean Corpuscular Hemoglobin 30.4 28.0-32.0 pg Mean Corpuscular Hemoglobin Concent 32.5 32.0-36.0 g/dL Red Cell Distribution Width 15.5 H 11.8-14.3 % Platelet Count 192 140-450 10^3/uL Mean Platelet Volume 8.9 6.9-10.8 fL Neutrophils (%) (Auto) 64.7 37.0-80.0 % Lymphocytes (%) (Auto) 23.0 10.0-50.0 % Monocytes (%) (Auto) 11.7 0.0-12.0 % Eosinophils (%) (Auto) 0.2 0.0-7.0 % Basophils (%) (Auto) 0.4 0.0-2.0 % Neutrophils # (Auto) 4.5 1.6-8.6 10 ^3/uL Lymphocytes # (Auto) 1.6 0.4-5.4 10 ^3/uL Monocytes # (Auto) 0.8 0-1.3 10 ^3/uL Eosinophils # (Auto) 0 0-0.8 10 ^3/uL Basophils # (Auto) 0 0-0.2 10 ^3/uL Nucleated Red Blood Cells 0.0 % Sodium Level 149 H 136-145 mmol/L Potassium Level 4.2 3.5-5.1 mmol/L Chloride Level 114 H 98-107 mmol/L Carbon Dioxide Level 22 20-31 mmol/L Anion Gap 13 5-15 Blood Urea Nitrogen 17 9-23 mg/dL Creatinine 1.53 H 0.700-1.30 mg/dL Glomerular Filtration Rate Calc 49 >90 mL/min BUN/Creatinine Ratio 11.1 10.0-20.0 Serum Glucose 134 H 74-106 mg/dL Calcium Level 8.5 L 8.7-10.4 mg/dL Total Bilirubin 0.8 0.2-1.0 mg/dL Aspartate Amino Transferase (AST) 18 13-40 U/L Alanine Aminotransferase (ALT) 12 7-40 U/L Alkaline Phosphatase 59 46-116 U/L Total Protein 6.1 5.7-8.2 g/dL Albumin 3.5 3.2-4.8 g/dL POC Glucose 137 H 70-106 mg/dl Lactate Dehydrogenase 203 120-246 U/L Beta-Hydroxybutyric Acid 1.243 H < 0.4 mmol/L Urine Color Light-yellow Yellow Urine Clarity Clear Clear Urine pH 6.5 5.0-9.0 Urine Specific [place] 1.047 H 1.001-1.035 Urine Protein 2+ H Negative Urine Ketones 1+ H Negative Urine Blood Negative Negative /uL Urine Nitrite Negative Negative Urine Bilirubin Negative Negative Urine Urobilinogen Normal Negative mg/dL Urine Leukocyte Esterase Negative Negative /uL Urine RBC 1 0 - 3 /hpf Urine WBC 2 0 - 3 /hpf Urine Squamous Epithelial Cells Few <5 /hpf Urine Bacteria None seen None Seen /hpf Urine Glucose 4+ H Normal mg/dL Test 09/03/24 03:31 09/03/24 02:43 09/03/24 01:30 09/03/24 00:30 Range/Units Lactic Acid Level 4.6 *H 0.4-2.0 mmol/L Blood Gas Specimen Type Venous Blood Gas Sample Site Vbg - n/a Blood Gas Patient Temperature 37.0 Arterial Blood Date Drawn [id number] Syd Test N/a Venous Blood pH 7.363 7.320-7.430 Venous Blood pCO2 at Patient Temp 46.1 38.0-54.0 mmHg Venous Blood pO2 at Patient Temp 41.8 23.0-48.0 mmHg Venous Blood HCO3 25.6 22.0-29.0 mmol/L Venous Bld O2 Saturation (Measured) 72.6 60.0-85.0 % Venous Blood Base Excess -0.1 -2.0-3.0 mmol/L Venous Blood Total Hemoglobin 13.6 13.5-17.5 g/dL Venous Blood Oxyhemoglobin 71.1 0.0-79.0 % Venous Blood Carboxyhemoglobin 1.3 0.5-1.5 % Venous Blood Methemoglobin 0.7 0.0-1.5 % Blood Gas Liter Flow 0.00 Blood Gas Modality Room air FiO2 % 21.0 Specimen Drawn By [facility] Blood Gas Comments venous Troponin I High Sensitivity 7 </=54 ng/L Prothrombin Time 11.3 9.3-11.8 sec Prothrombin Time INR 1.07 0.9-1.15 Activated Partial Thromboplast Time 22.9 L 24.5-34.5 SEC B-Type Natriuretic Peptide 17.98 0-100 pg/mL Lipase 49 12-53 U/L Assessment/Plan Plan patient complaint of abdominal pain and nausea, unable to pass gas, review of notes and tenderness to abdomen with no flatus, will order a small bowel series with Gastrografin to rule out bowel obstruction Dr. Light agrees with plan Plan discussed with: Patient, Other (Dr. light ) Visit Coding Surgery Date of Service if different f: Sep 04, 2024 Billing Provider: BEN LIGHT MD Surgery Visit Codes: 41137 - INP CONSULT <80 MIN SANTHOSH ANTHONY NP Sep 04, 2024 09:11
--- NOTE | 2024-09-04 09:23 | DVH ---
PROCEDURE: MRI BRAIN HEAD WO CONTRAST INDICATION: 69 years old, Male; CVA. EXAM DATE: 09/04/2024 08:23 AM COMPARISON: MRI BRAIN HEAD WO CONTRAST on DOS: 08/03/23, CT HEAD WITHOUT CONTRAST on DOS: 08/03/23, H EAD WITHOUT CONTRAST on DOS: 04/12/21 TECHNIQUE: MRI of the brain without intravenous contrast. FINDINGS: There are 2 foci of restricted diffusion 1 in the left occipital lobe and 1 in the right cerebellum m easuring up to 9 mm and 12 mm respectively. There are few other punctate foci of restricted diffusion . There is no evidence of acute intracranial hemorrhage, extra-axial collection, mass effect, midline s hift, herniation or hydrocephalus. There is mild cerebral atrophy. There are moderate to advanced changes of chronic microvascular ischemic disease. There are few areas of blooming artifact consistent with calcification or hemosiderin The major vascular flow voids are present. The visualized paranasal sinuses and mastoid air cells are clear. The surrounding soft tissues and o sseous structures are unremarkable. IMPRESSION: 1. Few small foci of acute ischemia, suspect embolic infarcts. Clinical correlation and continued fo llow-up is recommended. Consider further evaluation with CTA or MRA of the head and neck. HS:Y
[2024-09-04] MEDS ORDERED: PANTOPRAZOLE 40 MG/10 ML VIAL INJ IV SCH (10:00)
[2024-09-04] MEDS: GASTROGRAFIN 120 ML SOL ONE (10:22)
--- NOTE | 2024-09-04 11:11 | DVHPN2 ---
Progress Note - Dictate Date Seen: Sep 04, 2024 Medical Necessity Reason Pt with a Central, PICC or Fol: No Subjective Mr. Goldsmith is a 69 years old right-handed gentleman with a history of hypertension, diabetes, dyslipidemia, he came to the [facility] on 09/03/2023 with a chief complaint of abdominal pain, nausea, vomiting I saw him on 08/20/23 for syncope I have seen and examined the patient, I have talked to history lot of medical staff, the patient was awake, oriented x3, he does not remember confusion. But nurse reports he was confused after he came to the hospital I have talked to his at 7:18 p.m. his did not confirm confusion/ALOC, but the patient was delayed where he was answer any orientation questions so he was continued to have confusion Urinalysis, 09/03/2024: WBC: 2, urine leukocyte esterase: Negative CBC, 09/03/2024: unremarkable Na, 09/03/2024: 148 Anion gap, 09/03/2024: 16 Glucose, 09/03/2024: 309 HGB A1c, 07/2023: 6.1 BUN/CR, 09/03/2024: 22/1.81 Liver function tests, 09/03/2024: Unremarkable Lactic acid, 09/03/2024: 649, 4.6 Beta hydroxybutyric acid 09/03/2024: 1.243 Vitamin B12, 04/2024: 622 TSH, 04/2020 4:2.29 CT head, 08/03/2023: MRI head, 08/03/2023: No acute findings. Small vessel chronic ischemic changes MRI head, 09/04/2024: Few small foci of acute ischemia, suspect embolic infarcts. Clinical correlation and continued follow-up is recommended. Consider further evaluation with CTA or MRA of the head and neck. vital signs Vital Sign Date Time Temp Pulse Resp B/P (MAP) Pulse Ox O2 Delivery O2 Flow Rate FiO2 09/04/24 09:00 98.0 94 18 188/98 (128) 96 98.0 09/04/24 08:00 Room Air* 0 21 Total Intake and Output 09/03/24 09/03/24 09/04/24 15:00 23:00 07:00 Intake Total 800 ml 320 ml 100 ml Output Total 1050 ml 300 ml Balance 800 ml -730 ml -200 ml medications Current Medications Medications Dose Ordered Sig/Abilio Route Start Time Stop Time Status Last Admin Dose Admin Octreotide Acetate 500 mcg/ Sodium Chloride 100 ml @ 10 mls/hr Q10H IV 09/03/24 00:45 09/04/24 09:18 10 MLS/HR Sodium Chloride 1,000 ml @ 120 mls/hr Q8H20M IV 09/03/24 08:30 09/04/24 09:42 120 MLS/HR Ondansetron HCl 4 mg Q4HP PRN IV 09/03/24 08:30 09/03/24 13:17 4 MG Morphine Sulfate 4 mg Q4HPRN PRN IV 09/03/24 08:45 09/03/24 13:22 4 MG Nitroglycerin 0.4 mg Q5MINP PRN SL 09/03/24 08:30 Morphine Sulfate 2 mg Q30M PRN IV 09/03/24 08:30 Diagnostic Test (Pha) 1 strip ACHS 09/03/24 11:30 09/04/24 06:43 1 STRIP Insulin Human Regular ACHS SC 09/03/24 11:30 09/04/24 06:50 2 UNITS Dextrose 50 ml UD PRN IV 09/03/24 08:30 Labetalol HCl 5 mg Q6HP PRN IV 09/03/24 19:30 09/04/24 00:40 5 MG Pantoprazole Sodium 40 mg BID IV 09/03/24 22:00 09/03/24 23:57 40 MG Lorazepam 1 mg ONCE PRN IV 09/03/24 22:00 objective General: the patient is well developed and nourished. No acute distress. MENTAL STATUS: Subjective SPEECH, LANGUAGE, HIGHER CORTICAL FUNCTION: no aphasia or dysathria. CRANIAL NERVES: Pupils are equal, round and reactive. EOMs full and conjugate. No nystagmus. Facial sensation intact in all three divisions bilaterally. Mandibular strength intact. Facial muscles symmetrical and strength intact. SENSATION: Sensation to touch and pinprick is normal. MOTOR: Normal tone in the upper and lower extremity. Normal muscle bulk. No fasciculations. No abnormal movements or posturing. Muscle strength of the major groups in the extremities is 5/5. REFLEXES: Deep tendon reflexes are symmetrical. No pathological reflexes. CEREBELLAR/COORDINATION: Finger to nose is normal bilaterally. GAIT/STATION: deferred laboratory and microbiology Laboratory Tests 09/04/24 05:59 Test 09/04/24 05:59 Range/Units Serum Glucose 134 H 74-106 mg/dL Problem List Syncopal event, likely secondary to GI bleeding, nausea, vomiting Dark vomitus, to rule out GI bleeding Anemia Acute multiple strokes Assessment/Plan Monitoring Supportive treatment Telemetry Follow-up labs Lipitor profile CLAUDY EEG Lipitor 40 mg daily Aspirin 81 mg daily hold off for GI bleeding) Syncope precautions discussed GI consultation Recommendation per clinical course This medical document was created using an electronic medical record system with [employer] dictation system. Although this document has been carefully reviewed, there may still be some phonetic and typographical errors. These areas are purely typographical due to imperfections of the software programs, and do not reflect any compromise in the patient's medical care. Prognosis poor Plan discussed with: Patient, Other Total Time (mins): 40 GRACIE UMAÑA MD Sep 04, 2024 11:11
[2024-09-04 12:25] LABS: Cholesterol 262 mg/dL (< 200); HDL Cholesterol 41 mg/dL (40-59); LDL Cholesterol 181 mg/dL (< 100); Triglycerides 158 mg/dL (< 150)
--- NOTE | 2024-09-04 12:35 | DVH ---
CAROTID ARTERIAL DOPPLER CLINICAL HISTORY: cva TECHNIQUE: Doppler study of bilateral carotid/vertebral arteries were performed. Comparison: US CAROTID DUPLX W COLOR DOP on DOS: 08/03/23 FINDINGS: There are nonocclusive atheromatous plaques in the bilateral carotid bulbs , [id number]. The bilateral common carotid, external and internal carotid arteries appear patent without hemodynam ically significant stenosis. The spectral wave forms and peak systolic velocities are within normal limits. Antegrade flow is present within the vertebral arteries with appropriate velocities and waveforms. Right ICA/CCA PSV ratio = 1.6. Left ICA/CCA PSV ratio = 0.8 . IMPRESSION: 1. No hemodynamically significant stenosis within the carotid arteries. HS:Y
--- NOTE | 2024-09-04 14:40 | DVHPN2 ---
Progress Note - Dictate Date Seen: Sep 04, 2024 Medical Necessity Reason Pt with a Central, PICC or Fol: No vital signs Vital Sign Date Time Temp Pulse Resp B/P (MAP) Pulse Ox O2 Delivery O2 Flow Rate FiO2 09/04/24 12:58 98.6 88 22 214/96 (135) 95 98.6 09/04/24 08:00 Room Air* 0 21 Total Intake and Output 09/03/24 09/03/24 09/04/24 15:00 23:00 07:00 Intake Total 800 ml 320 ml 100 ml Output Total 1050 ml 300 ml Balance 800 ml -730 ml -200 ml medications Current Medications Medications Dose Ordered Sig/Abilio Route Start Time Stop Time Status Last Admin Dose Admin Octreotide Acetate 500 mcg/ Sodium Chloride 100 ml @ 10 mls/hr Q10H IV 09/03/24 00:45 09/04/24 09:18 10 MLS/HR Sodium Chloride 1,000 ml @ 120 mls/hr Q8H20M IV 09/03/24 08:30 09/04/24 09:42 120 MLS/HR Ondansetron HCl 4 mg Q4HP PRN IV 09/03/24 08:30 09/03/24 13:17 4 MG Morphine Sulfate 4 mg Q4HPRN PRN IV 09/03/24 08:45 09/03/24 13:22 4 MG Nitroglycerin 0.4 mg Q5MINP PRN SL 09/03/24 08:30 Morphine Sulfate 2 mg Q30M PRN IV 09/03/24 08:30 Diagnostic Test (Pha) 1 strip ACHS 09/03/24 11:30 09/04/24 12:47 1 STRIP Insulin Human Regular ACHS SC 09/03/24 11:30 09/04/24 06:50 2 UNITS Dextrose 50 ml UD PRN IV 09/03/24 08:30 Labetalol HCl 5 mg Q6HP PRN IV 09/03/24 19:30 09/04/24 12:47 5 MG Pantoprazole Sodium 40 mg BID IV 09/03/24 22:00 09/04/24 12:11 40 MG Lorazepam 1 mg ONCE PRN IV 09/03/24 22:00 Atorvastatin Calcium 40 mg HS PO 09/04/24 22:00 objective General Appearance: alert, no distress HEENT: EOMI, PERRLA, normal external inspect of ears, no icterus, no nasal drainage Neck: no carotid bruit, no jugular venous distention (JVD), no lymphadenopathy Chest: normal thorax Respiratory: clear to auscultation, normal air movement Cardiovascular: regular rate and rhythm, no diastolic murmur, no jugular venous distention (JVD), no rub, no systolic murmur Abdominal: soft, no hepatomegaly, no mass, no splenomegaly, no tenderness Genitourinary: grossly normal external Musculoskeletal: no joint tenderness, no swelling Extremities: normal pulses, no calf tenderness, no clubbing, no cyanosis, no edema Skin: no bruising, no jaundice, no rash Neurological: alert, No focal deficit laboratory and microbiology Laboratory Tests 09/04/24 05:59 Test 09/04/24 05:59 Range/Units Serum Glucose 134 H 74-106 mg/dL Problem List 1. Metabolic encephalopathy Monitor, neurology consult 2. Upper GI bleed Monitor, GI consult, surgical consult, Sandostatin gtt 3. Large hiatal hernia Monitor, surgical consult 4. Acute blood loss anemia Monitor, daily labs 5. DM II & hyperglycemia Monitor, insulin ss 6. Lactic acidosis Monitor, IV fluids, PPI Assessment/Plan Subjective Patient is awake and alert. Objective Patient has had uncontrolled blood pressure today. Blood pressure has been in the 200s. Patient's home medications were restarted. Patient was seen by GI and general surgery. Small bowel series is pending. Patient was admitted for abdominal pain and coffee ground emesis. Most likely abdominal pain is related to GERD. Patient was found to have an acute CVA. He was reportedly confused on admission. Patient's mentation appears to now be at baseline. Patient will need a cardiology consult. Plan EGD scheduled for tomorrow by gastroenterology. Small bowel series results are currently pending. Cardiology consult. Monitor for signs or symptoms of atrial fibrillation. GI recommendations appreciated. Plan discussed with: Patient, Other VITOR SCHULTZ NP Sep 04, 2024 14:40
--- NOTE | 2024-09-04 14:46 | DVH ---
Procedure: XY SMALL BOWEL SERIES-W GASTROGRA Reason for study/Clinical History: r/o obstruction Comparison Study: None available at time of dictation. Technique: Single contrast small bowel series performed. FINDINGS/IMPRESSION: Initial accountancy professor view of the abdomen and pelvis appears demonstrates no acute process. Contrast is identified within the colon by 3. This represents a normal small bowel transit time. Gastric volvulus which appears to be organo axial
[2024-09-04] MEDS: amLODIPine BESYLATE 5 MG TAB PO ONE (17:07)
[2024-09-04] MEDS: BENAZEPRIL HCL 10 MG TAB PO ONE (17:08)
--- NOTE | 2024-09-04 20:31 | DVHEEG2 ---
Neurology EEG Procedural Note Procedural Note EXAM DATE: 09/04/24 REFERRING DOCTOR: [] TECHNIQUE: Eighteen channels of EEG, 2 channels of EOG, and 1 channel of EKG were recorded using the International 10/20 system. CLINICAL DATA: The patient was referred for an EEG evaluation for the evidence of seizure disorder. MEDICATIONS: See chart BACKGROUND ACTIVITY: While the patient was awake, the background activity consisted of well regulated 9 Hz rhythmic waveforms, symmetrically distributed over both posterior quadrants and was reactive to eye opening. ACTIVATION: Hyperventilation: Not down Photic Stimulation: Not done Sleep: Noticed IMPRESSION: This is a normal EEG. No focal, lateralized, or epileptiform features are noted. If clinically indicated to rule out a seizure disorder, recommend repeat EEG with sleep deprivation. The EKG channel showed a regular heart rate of 95/minute. [place] [address] GRACIE UMAÑA MD Sep 04, 2024 20:31
--- NOTE | 2024-09-04 21:45 | DVHPN2 ---
Progress Note - Dictate Date Seen: Sep 04, 2024 Medical Necessity Reason Pt with a Central, PICC or Fol: No Subjective No new complaints Coffee-ground emesis has resolved NG tube output was minimal EEG and carotid Doppler were negative vital signs Vital Sign Date Time Temp Pulse Resp B/P (MAP) Pulse Ox O2 Delivery O2 Flow Rate FiO2 09/04/24 17:08 199/110 09/04/24 17:00 98.9 89 20 96 98.9 09/04/24 08:00 Room Air* 0 21 Total Intake and Output 09/03/24 09/03/24 09/04/24 15:00 23:00 07:00 Intake Total 800 ml 320 ml 100 ml Output Total 1050 ml 300 ml Balance 800 ml -730 ml -200 ml medications Current Medications Medications Dose Ordered Sig/Abilio Route Start Time Stop Time Status Last Admin Dose Admin Octreotide Acetate 500 mcg/ Sodium Chloride 100 ml @ 10 mls/hr Q10H IV 09/03/24 00:45 09/04/24 09:18 10 MLS/HR Sodium Chloride 1,000 ml @ 120 mls/hr Q8H20M IV 09/03/24 08:30 09/04/24 18:14 120 MLS/HR Ondansetron HCl 4 mg Q4HP PRN IV 09/03/24 08:30 09/03/24 13:17 4 MG Morphine Sulfate 4 mg Q4HPRN PRN IV 09/03/24 08:45 09/03/24 13:22 4 MG Nitroglycerin 0.4 mg Q5MINP PRN SL 09/03/24 08:30 Morphine Sulfate 2 mg Q30M PRN IV 09/03/24 08:30 Diagnostic Test (Pha) 1 strip ACHS 09/03/24 11:30 09/04/24 17:06 1 STRIP Insulin Human Regular ACHS SC 09/03/24 11:30 09/04/24 17:07 2 UNITS Dextrose 50 ml UD PRN IV 09/03/24 08:30 Labetalol HCl 5 mg Q6HP PRN IV 09/03/24 19:30 09/04/24 12:47 5 MG Pantoprazole Sodium 40 mg BID IV 09/03/24 22:00 09/04/24 12:11 40 MG Lorazepam 1 mg ONCE PRN IV 09/03/24 22:00 Atorvastatin Calcium 40 mg HS PO 09/04/24 22:00 Benazepril HCl 40 mg DAILY PO 09/05/24 10:00 Amlodipine Besylate 10 mg DAILY PO 09/05/24 10:00 objective General Appearance: No Distress, NG tube minimal bilious material, male HEENT: Normal ENT Inspection, Pharynx Normal, TMs Normal Neck: Full Range of Motion, Non-Tender, Normal, Normal Inspection Respiratory: Chest Non-Tender, Lungs Clear, No Accessory Muscle Use, No Respiratory Distress, Normal Breath Sounds Cardiovascular: No Edema, No JVD, No Murmur, No Gallop, Normal Peripheral Pulses, Regular Rate/Rhythm Gastrointestinal: No Organomegaly, Non Tender, No Pulsatile Mass, Normal Bowel Sounds, Soft Extremities: No calf tenderness, Normal capillary refill, Normal inspection, Normal range of motion, Non-tender, No pedal edema Neurologic: Alert,No Motor Deficits, Normal Affect, Normal Mood, No Sensory Deficits laboratory and microbiology Laboratory Tests 09/04/24 05:59 Test 09/04/24 05:59 Range/Units Serum Glucose 134 H 74-106 mg/dL SBFT X RAY FINDINGS/IMPRESSION: Initial production expert view of the abdomen and pelvis appears demonstrates no acute process. Contrast is identified within the colon by 3. This represents a normal small bowel transit time. Gastric volvulus which appears to be organo axial Problems(with codes): (1) Hiatal hernia without gangrene or obstruction (2) Lactic acidosis (3) Hepatitis C antibody positive in blood (4) Coffee ground emesis (5) Right inguinal hernia (6) Umbilical hernia Prognosis Plan Patient has a large hiatal hernia with possible gastric volvulus I will schedule a repeat endoscopy on 09/05/2024 Surgical consult and Neurology consult appreciated DC NG tube and start clear liquid diet Protonix 40 mg IV twice a day Carafate 1 g p.o. 4 times a day DC aspirin NSAIDs smoking alcohol Plan discussed with: Patient, Other (Nurse) KAREL PRITCHARD MD Sep 04, 2024 21:45
[2024-09-04] MEDS: ATORVASTATIN 20 MG TAB PO SCH (22:42)
[2024-09-05] VITALS (9 sets, daily range): BP systolic 155–174; BP diastolic 70–106; PULSE 68–107; RESP 12–18; TEMP 97.6–98.3; O2SAT 92–97
--- NOTE | 2024-09-05 06:04 | DVHSR ---
APPROVED REPORT EXAM: Two-dimensional and M-mode echocardiogram with Doppler and color Doppler. Blood Pressure: 173/101 mmHg INDICATION Pre-Op RISK FACTORS Height: 6' 2", Weight: 200 DIMENSIONS LVDd3.7 (3.8-5.7cm)LA (2D)3.8 (1.9-4.0cm)Aortic Root3.6 (2.0-3.7cm) LVDs2.5 (2.5-4.0cm)LA (MM) (1.9-4.0cm)Aortic Cusp Exc2.0 (1.5-2.0cm) EF (%) 60.0 (55-70%)Rt. Atrium3.7 (1.9-4.0cm)Asc. Aorta cm IVSd1.3 (0.7-1.1cm)RV (D) (1.8-2.4cm) PWd1.3 (0.7-1.1cm) Mitral Valve MitralMitral Stenosis E wave0.70m/sMV Mean GR.mmHg A wave1.30m/sMV Peak GR.mmHg E/A ratio0.52D MVAcm2 Aortic Valve Aortic ValveAortic Stenosis V10.90m/Samanta Mean GR.4mmHg V21.30m/Samanta Peak GR.7mmHg LVOT Diameter2.6 (1.8-2.4cm)Doppler AVA3.67cm2 Pulmonic Valve V21.30m/s Conclusion Left ventricle: Concentric left ventricular hypertrophy was seen. LVEF was around 60-65%. There wa s no gross wall motion abnormality. Right ventricle was normal-sized with normal systolic function. Both atria were normal-sized. Aortic valve: Aortic valve was trileaflet. There was no aortic insufficiency/stenosis. There was no mitral/tricuspid regurgitation. Pulmonary valve was not well visualized. As there was no good tricuspid regurgitation jet, right ventricular systolic pressure could not be es timated. There was no pericardial effusion. There was no vegetation seen in this transthoracic study.
--- NOTE | 2024-09-05 07:06 | DVHINCON2 ---
Date of service: Sep 05, 2024 History of Present Illness HPI Patient is a 69-year-old gentleman who originally presented on September 03, 2000 for epigastric abdominal pain, nausea/vomiting and coffee-ground emesis. Reportedly, the patient was altered on arrival. There has been son report that he did not have flatus at the time of presentation. He was admitted with GI bleeding and altered mental status. While being managed he was found to have CV A and there is question about obstruction/volvulus. Patient has been seen by Neurology and GI and surgery. Cardiology is involved for cardiac aspects of care. Patient denies previous cardiac history himself. Patient denies previous heart failure/irregular heartbeat. He denies previous cardiac problem. Home Meds Reported Medications Simvastatin (Simvastatin) 20 Mg Tab, 1 TAB PO DAILY 09/03/24 Dapagliflozin Propanediol (Farxiga) 10 Mg Tab, 1 TAB PO DAILY 09/03/24 Aspirin (Aspirin Low Dose) 81 Mg Chw, 81 MG PO DAILY, TAB.CHEW 09/03/24 Omeprazole (Omeprazole Dr) 20 Mg Cap, 1 CAP PO DAILY 09/03/24 Metformin Hydrochloride (Metformin Hcl) 850 Mg Tab, 1 TAB PO BID 09/30/22 Benazepril Hcl (Benazepril Hcl) 40 Mg Tab, 1 TAB PO DAILY 09/30/22 Amlodipine Besylate (Amlodipine Besylate) 10 Mg Tab, 1 TAB PO DAILY 09/30/22 Past Medical History Others Past medical history includes hypertension, diabetes mellitus, anemia, GERD, hyperlipidemia, hiatal hernia and a Holter history of hepatitis-C. Does have history of smoking. Denies alcohol and drug abuse. Family history is positive for hypertension/CVA and heart murmur Patient Family History: Cardiovascular disease G8 BROTHER Cerebrovascular accident (CVA) G8 MOTHER FH: heart failure G8 FATHER Hypertension G8 MOTHER Smoker: Positive Alocohol: Occassional Drugs: None Lives with: With family Review of Systems Constitutional: Malaise Ears, Nose, & Throat: No symptom reported Gastrointestinal: Nausea, Vomiting, Abdominal Pain All Other Systems 14 point review of system was performed. Relevant findings as per above and as per HPI. Otherwise negative. H&P Exam Vital Signs Vital Signs Date Time Temp Pulse Resp B/P (MAP) Pulse Ox O2 Delivery O2 Flow Rate FiO2 09/05/24 05:00 97.8 96 17 164/70 (101) 93 97.8 09/04/24 20:00 Room Air* 0 21 Eye Exam: bilateral eye PERRL Nasal Exam: Normal inspection Mouth: Normal Inspection Pulmonary/Respiratory: Lungs clear Cardiovascular/Chest: Regular rate Peripheral Pulses: 2+ carotid (R), 2+ carotid (L), 2+ femoral (R), 2+ femoral (L), 2+ dorsalis pedis (R), 2+ dorsalis pedis (L), 2+ Radial (R), 2+ Radial (L) Abdominal Exam: Normal bowel sounds, Soft Neuro/Mental St: Alert Eye contact/ Speech: Cooperative Labs/Xrays Labs Test 09/05/24 06:06 09/04/24 05:59 09/03/24 12:46 09/03/24 04:36 Range/Units POC Glucose 133 H 70-106 mg/dl White Blood Count 6.9 # 4.4-10.8 10^3/uL Red Blood Count 3.51 L 4.5-5.90 10^6/uL Hemoglobin 10.7 #L 13.5-17.5 g/dL Hematocrit 32.8 #L 41.0-53.0 % Mean Corpuscular Volume 93.3 80.0-100.0 fL Mean Corpuscular Hemoglobin 30.4 28.0-32.0 pg Mean Corpuscular Hemoglobin Concent 32.5 32.0-36.0 g/dL Red Cell Distribution Width 15.5 H 11.8-14.3 % Platelet Count 192 140-450 10^3/uL Mean Platelet Volume 8.9 6.9-10.8 fL Neutrophils (%) (Auto) 64.7 37.0-80.0 % Lymphocytes (%) (Auto) 23.0 10.0-50.0 % Monocytes (%) (Auto) 11.7 0.0-12.0 % Eosinophils (%) (Auto) 0.2 0.0-7.0 % Basophils (%) (Auto) 0.4 0.0-2.0 % Neutrophils # (Auto) 4.5 1.6-8.6 10 ^3/uL Lymphocytes # (Auto) 1.6 0.4-5.4 10 ^3/uL Monocytes # (Auto) 0.8 0-1.3 10 ^3/uL Eosinophils # (Auto) 0 0-0.8 10 ^3/uL Basophils # (Auto) 0 0-0.2 10 ^3/uL Nucleated Red Blood Cells 0.0 % Sodium Level 149 H 136-145 mmol/L Potassium Level 4.2 3.5-5.1 mmol/L Chloride Level 114 H 98-107 mmol/L Carbon Dioxide Level 22 20-31 mmol/L Anion Gap 13 5-15 Blood Urea Nitrogen 17 9-23 mg/dL Creatinine 1.53 H 0.700-1.30 mg/dL Glomerular Filtration Rate Calc 49 >90 mL/min BUN/Creatinine Ratio 11.1 10.0-20.0 Serum Glucose 134 H 74-106 mg/dL Calcium Level 8.5 L 8.7-10.4 mg/dL Total Bilirubin 0.8 0.2-1.0 mg/dL Aspartate Amino Transferase (AST) 18 13-40 U/L Alanine Aminotransferase (ALT) 12 7-40 U/L Alkaline Phosphatase 59 46-116 U/L Total Protein 6.1 5.7-8.2 g/dL Albumin 3.5 3.2-4.8 g/dL Triglycerides Level 158 H < 150 mg/dL Cholesterol Level 262 H < 200 mg/dL LDL Cholesterol 181 H < 100 mg/dL HDL Cholesterol 41 40-59 mg/dL Lactate Dehydrogenase 203 120-246 U/L Beta-Hydroxybutyric Acid 1.243 H < 0.4 mmol/L Urine Color Light-yellow Yellow Urine Clarity Clear Clear Urine pH 6.5 5.0-9.0 Urine Specific [place] 1.047 H 1.001-1.035 Urine Protein 2+ H Negative Urine Ketones 1+ H Negative Urine Blood Negative Negative /uL Urine Nitrite Negative Negative Urine Bilirubin Negative Negative Urine Urobilinogen Normal Negative mg/dL Urine Leukocyte Esterase Negative Negative /uL Urine RBC 1 0 - 3 /hpf Urine WBC 2 0 - 3 /hpf Urine Squamous Epithelial Cells Few <5 /hpf Urine Bacteria None seen None Seen /hpf Urine Glucose 4+ H Normal mg/dL Test 09/03/24 03:31 09/03/24 02:43 09/03/24 01:30 09/03/24 00:30 Range/Units Lactic Acid Level 4.6 *H 0.4-2.0 mmol/L Blood Gas Specimen Type Venous Blood Gas Sample Site Vbg - n/a Blood Gas Patient Temperature 37.0 Arterial Blood Date Drawn [id number] Syd Test N/a Venous Blood pH 7.363 7.320-7.430 Venous Blood pCO2 at Patient Temp 46.1 38.0-54.0 mmHg Venous Blood pO2 at Patient Temp 41.8 23.0-48.0 mmHg Venous Blood HCO3 25.6 22.0-29.0 mmol/L Venous Bld O2 Saturation (Measured) 72.6 60.0-85.0 % Venous Blood Base Excess -0.1 -2.0-3.0 mmol/L Venous Blood Total Hemoglobin 13.6 13.5-17.5 g/dL Venous Blood Oxyhemoglobin 71.1 0.0-79.0 % Venous Blood Carboxyhemoglobin 1.3 0.5-1.5 % Venous Blood Methemoglobin 0.7 0.0-1.5 % Blood Gas Liter Flow 0.00 Blood Gas Modality Room air FiO2 % 21.0 Specimen Drawn By [facility] Blood Gas Comments venous Troponin I High Sensitivity 7 </=54 ng/L Prothrombin Time 11.3 9.3-11.8 sec Prothrombin Time INR 1.07 0.9-1.15 Activated Partial Thromboplast Time 22.9 L 24.5-34.5 SEC B-Type Natriuretic Peptide 17.98 0-100 pg/mL Lipase 49 12-53 U/L Assessment/Plan Plan Patient is a 69-year-old gentleman who originally presented on September 03, 2000 24 for epigastric abdominal pain, nausea/vomiting and coffee-ground emesis. Reportedly, the patient was altered on arrival. There has been son report that he did not have flatus at the time of presentation. He was admitted with GI bleeding and altered mental status. While being managed he was found to have CVA and there is question about obstruction/volvulus. Patient has been seen by Neurology and GI and surgery. Cardiology is involved for cardiac aspects of care. Patient denies previous cardiac history himself. Patient denies previous heart failure/irregular heartbeat. He denies previous cardiac problem. Not in acute distress. Not using accessory muscles of breathing. No JVD. Speaks slowly. Mucosa is pink and wet. No goiter. No carotid bruit. Lungs are clear to auscultation. Cardiac: Regular, no thrill/gallop. Abdomen is soft. There is no gross mass. Bowel sound is positive. There is no peripheral edema. Dorsalis pedis is 2+ bilateral Past medical history includes hypertension, diabetes mellitus, anemia, GERD, hyperlipidemia, hiatal hernia and a Holter history of hepatitis-C. Does have history of smoking. Denies alcohol and drug abuse. Family history is positive for hypertension/CVA and heart murmur Echocardiogram of August 03, 2023 had reported mild concentric left ventricular hypertrophy, aortic sclerosis, ejection fraction of 65-70% and no vegetation Hemoglobin 14.4 - 10.7 Creatinine: 2.10 - 1.81 - 1.53 Potassium: 3.5 - 4.5 - 4.2 Lactic acid: 6.9 - 4.6 BNP: 17.98 (within normal limits) Troponin (high sensitive): 6 -7 LDL: 181 Chest x-ray reported: IMPRESSION: Patchy consolidation in the right lower lung. Repeat chest x-ray reported: IMPRESSION: NG tube in stomach No acute cardiopulmonary disease. CT of the abdomen and pelvis reported: IMPRESSION: 1. Gastrointestinal Findings: Large hiatal hernia (12.1 cm) containing almost the entire stomach. 2. Moderate fecal residue in the large bowel loops with fecal impaction in the distal sigmoid colon and rectum. Scattered diverticulosis of the sigmoid colon without evidence of diverticulitis. 3. Liver and Spleen: Mild fatty infiltration of the liver. 4. Tiny calcified granulomas in the spleen. 5. Renal Findings: Small 10 mm cortical cyst in the left kidney interpolar region. No concerning features noted. 6. Hernias: Small omental fat-containing right inguinal hernia. 7. Small omental fat-containing umbilical hernia (18 x 12 mm). 8. Spinal Findings: Mild lumbar dextroscoliosis with vacuum disc changes at L3- L4, L4-L5, and L5-S1. 9. Multilevel degenerative facet arthropathy. 10. Degenerative changes in the bilateral sacroiliac and hip joints. 11. Pulmonary Findings: Linear fibrotic bands in the bilateral lower lobes. 2. Small calcified granuloma in the right lower lobe, with no follow-up required. Small-bowel series reported: Initial business area manager view of the abdomen and pelvis appears demonstrates no acute process. Contrast is identified within the colon by 3. This represents a normal small bowel transit time. Gastric volvulus which appears to be organo axial Carotid sonogram revealed: IMPRESSION: 1. No hemodynamically significant stenosis within the carotid arteries. MR of the brain reported: IMPRESSION: 1. Few small foci of acute ischemia, suspect embolic infarcts. Clinical correlation and continued follow-up is wilfredo mmended. Consider further evaluation with CTA or MRA of the head and neck. EKG revealed sinus tachycardia on arrival Tele reveals sinus rhythm and occasions of sinus tachycardia Echocardiogram reported: Left ventricle: Concentric left ventricular hypertrophy was seen. LVEF was around 60-65%. There was no gross wall motion abnormality. Right ventricle was normal-sized with normal systolic function. Both atria were normal-sized. Aortic valve: Aortic valve was trileaflet. There was no aortic insufficiency/stenosis. There was no mitral/tricuspid regurgitation. Pulmonary valve was not well visualized. As there was no good tricuspid regurgitation jet, right ventricular systolic pressure could not be estimated. There was no pericardial effusion. There was no vegetation seen in this transthoracic study. Patient is a 69-year-old gentleman who presented with abdominal pain/GI bleeding. He was found to have acute CVA. Did have some altered mental status on arrival. Does have history of large hiatal hernia and GI is considering questionable volvulus. Anemia and blood loss has been considered. Did have altered mental status and metabolic encephalopathy was considered. Hiatal hernia GI bleeding Acute blood loss, anemia Diabetes mellitus Encephalopathy, metabolic Acute CVA Uncontrolled diabetes MARY on CKD Hypertensive emergency Cardiac suggestion for management: Manage on telemetry Follow-up electrolytes and kidney function tests and correct abnormalities Fluid resuscitation is advised Control diabetes Consider repeat of CBC Request for D-dimer High potency statin is advised (consider increasing the dose of atorvastatin to 80 mg daily) Daily aspirin is suggested after GI permission/clearance Neurology follow-up Cardiac-miranda, patient is considered moderate risk patient for low risk EGD. Cardiac-miranda, you can proceed with endoscopy under appropriate intra and postoperative hemodynamic monitoring. Avoid hypotension. Lifestyle and risk factor modification Long-term monitor can be arranged as outpatient Further evaluation and management depends on the above and clinical course Thank you for consultation A total of 75 minutes was spent reviewing the patient record, examining the patient, making a diagnostic and therapeutic plan, discussing this plan with medical personnel, following up on diagnostic studies and following the patient for clinical stability excluding any and all procedures. At least 50% of this time was spent in direct, [id number] contact. Thank you for allowing me to participate in this patient's care. Further recommendations will depend on patient's clinical course. Please do not hesitate to contact me if you have any questions or concerns. This medical document was created using electronic medical record system with [employer] computerized dictation system. Although this document has been carefully reviewed, there may still be some phonetic and typographical errors. These areas are purely typographical due to the imperfection of the software programs, and do not reflect any compromise in the patient's medical care. Plan discussed with: Patient, Other (Nurse) NEVAEH FALCON MD Sep 05, 2024 07:06
[2024-09-05] MEDS: BENAZEPRIL HCL 10 MG TAB PO SCH (08:09)
[2024-09-05] MEDS: amLODIPine BESYLATE 5 MG TAB PO SCH (08:09)
[2024-09-05] MEDS ORDERED: LIDOCAINE VISCOUS 2% 15ML UD ONE (09:14)
[2024-09-05] MEDS ORDERED: diphenhdrAMINE HCL 50 MG/1 ML VL ONE (09:15)
[2024-09-05] MEDS ORDERED: MIDAZOLAM HCL 5 MG/ML-1ML VIAL ONE (09:15)
[2024-09-05] MEDS ORDERED: fentaNYL CITRATE 100 MCG/2 ML VL ONE ×2 (09:15→16:14)
[2024-09-05] MEDS ORDERED: SODIUM CHLORIDE LOCK 10 ML ONE (09:16)
--- NOTE | 2024-09-05 10:58 | DVHPN2 ---
Progress Note Date Seen: Sep 05, 2024 Medical Necessity Reason Pt with a Central, PICC or Fol: No Objective vital signs Vital Sign Date Time Temp Pulse Resp B/P (MAP) Pulse Ox O2 Delivery O2 Flow Rate FiO2 09/05/24 10:16 98.0 68 14 174/96 (122) 92 98.0 09/05/24 08:41 Room Air* 0 21 Total Intake and Output 09/04/24 09/04/24 09/05/24 15:00 23:00 07:00 Intake Total 0 ml 1900 ml Output Total 1075 ml Balance 0 ml -1075 ml 1900 ml medications Current Medications Medications Dose Ordered Sig/Abilio Route Start Time Stop Time Status Last Admin Dose Admin Octreotide Acetate 500 mcg/ Sodium Chloride 100 ml @ 10 mls/hr Q10H IV 09/03/24 00:45 09/05/24 02:47 10 MLS/HR Sodium Chloride 1,000 ml @ 120 mls/hr Q8H20M IV 09/03/24 08:30 09/05/24 02:43 120 MLS/HR Ondansetron HCl 4 mg Q4HP PRN IV 09/03/24 08:30 09/03/24 13:17 4 MG Morphine Sulfate 4 mg Q4HPRN PRN IV 09/03/24 08:45 09/03/24 13:22 4 MG Nitroglycerin 0.4 mg Q5MINP PRN SL 09/03/24 08:30 Morphine Sulfate 2 mg Q30M PRN IV 09/03/24 08:30 Diagnostic Test (Pha) 1 strip ACHS 09/03/24 11:30 09/05/24 06:11 1 STRIP Insulin Human Regular ACHS SC 09/03/24 11:30 09/05/24 06:34 2 UNITS Dextrose 50 ml UD PRN IV 09/03/24 08:30 Labetalol HCl 5 mg Q6HP PRN IV 09/03/24 19:30 09/05/24 07:08 5 MG Pantoprazole Sodium 40 mg BID IV 09/03/24 22:00 09/05/24 08:09 40 MG Lorazepam 1 mg ONCE PRN IV 09/03/24 22:00 Atorvastatin Calcium 40 mg HS PO 09/04/24 22:00 09/04/24 22:42 40 MG Benazepril HCl 40 mg DAILY PO 09/05/24 10:00 09/05/24 08:09 40 MG Amlodipine Besylate 10 mg DAILY PO 09/05/24 10:00 09/05/24 08:09 10 MG laboratory and microbiology Laboratory Tests 09/04/24 05:59 Test 09/04/24 05:59 Range/Units Serum Glucose 134 H 74-106 mg/dL Problem List/Assessment/Plan Problem List/Assessment/Plan 09/05/24 abdomen non distended, non tender, x ray with out evidence of obstruction, resumed BM, can advance diet as sandie, no indication for surgical intervention, will sign off, please recall if needed Plan discussed with: Patient, Spouse BEN PENA MD Sep 05, 2024 10:57
--- NOTE | 2024-09-05 15:02 | DVHPN2 ---
Progress Note - Dictate Date Seen: Sep 05, 2024 Medical Necessity Reason Pt with a Central, PICC or Fol: No vital signs Vital Sign Date Time Temp Pulse Resp B/P (MAP) Pulse Ox O2 Delivery O2 Flow Rate FiO2 09/05/24 14:30 76 168/106 09/05/24 13:45 98.3 16 95 98.3 09/05/24 08:41 Room Air* 0 21 Total Intake and Output 09/04/24 09/04/24 09/05/24 15:00 23:00 07:00 Intake Total 0 ml 1900 ml Output Total 1075 ml Balance 0 ml -1075 ml 1900 ml medications Current Medications Medications Dose Ordered Sig/Abilio Route Start Time Stop Time Status Last Admin Dose Admin Octreotide Acetate 500 mcg/ Sodium Chloride 100 ml @ 10 mls/hr Q10H IV 09/03/24 00:45 09/05/24 02:47 10 MLS/HR Sodium Chloride 1,000 ml @ 120 mls/hr Q8H20M IV 09/03/24 08:30 09/05/24 11:09 120 MLS/HR Ondansetron HCl 4 mg Q4HP PRN IV 09/03/24 08:30 09/03/24 13:17 4 MG Morphine Sulfate 4 mg Q4HPRN PRN IV 09/03/24 08:45 09/03/24 13:22 4 MG Nitroglycerin 0.4 mg Q5MINP PRN SL 09/03/24 08:30 Morphine Sulfate 2 mg Q30M PRN IV 09/03/24 08:30 Diagnostic Test (Pha) 1 strip ACHS 09/03/24 11:30 09/05/24 11:27 1 STRIP Insulin Human Regular ACHS SC 09/03/24 11:30 09/05/24 06:34 2 UNITS Dextrose 50 ml UD PRN IV 09/03/24 08:30 Labetalol HCl 5 mg Q6HP PRN IV 09/03/24 19:30 09/05/24 14:30 5 MG Pantoprazole Sodium 40 mg BID IV 09/03/24 22:00 09/05/24 08:09 40 MG Lorazepam 1 mg ONCE PRN IV 09/03/24 22:00 Atorvastatin Calcium 40 mg HS PO 09/04/24 22:00 09/04/24 22:42 40 MG Benazepril HCl 40 mg DAILY PO 09/05/24 10:00 09/05/24 08:09 40 MG Amlodipine Besylate 10 mg DAILY PO 09/05/24 10:00 09/05/24 08:09 10 MG objective General Appearance: alert, no distress HEENT: EOMI, PERRLA, normal external inspect of ears, no icterus, no nasal drainage Neck: no carotid bruit, no jugular venous distention (JVD), no lymphadenopathy Chest: normal thorax Respiratory: clear to auscultation, normal air movement Cardiovascular: regular rate and rhythm, no diastolic murmur, no jugular venous distention (JVD), no rub, no systolic murmur Abdominal: soft, no hepatomegaly, no mass, no splenomegaly, no tenderness Genitourinary: grossly normal external Musculoskeletal: no joint tenderness, no swelling Extremities: normal pulses, no calf tenderness, no clubbing, no cyanosis, no edema Skin: no bruising, no jaundice, no rash Neurological: alert, No focal deficit laboratory and microbiology Laboratory Tests 09/04/24 05:59 Test 09/04/24 05:59 Range/Units Serum Glucose 134 H 74-106 mg/dL Problem List 1. Metabolic encephalopathy Monitor, neurology consult 2. Upper GI bleed Monitor, GI consult, surgical consult, Sandostatin gtt 3. Large hiatal hernia Monitor, surgical consult 4. Acute blood loss anemia Monitor, daily labs 5. DM II & hyperglycemia Monitor, insulin ss 6. Lactic acidosis Monitor, IV fluids, PPI 7. Acute CVA Monitor, cardiology consult, neurology consult Assessment/Plan Subjective Patient was not in room during assessment. Objective Patient was taken down for EGD today. Patient was admitted for hematemesis which had resolved. Small bowel series was negative. General Surgery did sign off. Patient was also hypertensive while in the emergency room. His mentation is back to baseline however MRI was positive for CVA most likely related to uncontrolled hypertension. Hemoglobin remained stable. Plan Continue current treatment as small bowel obstruction was ruled out. Patient has a chronic large hiatal hernia. Patient to follow-up outpatient for possible surgery if needed in the future. Pending EGD results. Neurology recommendations appreciated. Plan discussed with: Patient, Other VITOR SCHULTZ NP Sep 05, 2024 15:02
[2024-09-05] MEDS ORDERED: MIDAZOLAM HCL 2MG/2ML 2ml VIAL (1mg/ml) ONE (16:15)
[2024-09-05] MEDS ORDERED: PROPOFOL 10 MG/ML 20 ML IV ONE (16:33)
[2024-09-05] MEDS ORDERED: DexAMETHasone SOD PHOS 10MG/1ML VIAL INJ ONE (16:33)
--- NOTE | 2024-09-05 19:25 | DVHOP2 ---
Operative Report DATE OF OPERATION: 09/05/24 PROCEDURE: Upper Endoscopy with biopsy. PREOPERATIVE INDICATION: The patient is a 69 -year-old male undergoing endoscopy for evaluation of coffee-ground emesis POSTOPERATIVE DIAGNOSES: 1. Large hiatal hernia about 10-12 cm with organoaxial rotation but no obstruction or significant volvulus Short-segment Rivera's but no evidence of acute esophagitis or ulceration 2. Mild gastritis within hiatal hernia sac and in the stomach 3. Slight difficulty in entering into the duodenal because of the large hiatal hernia but otherwise normal examination up to the 2nd and 3rd part of the duodenal PROCEDURE PERFORMED BY: Karel Junior GI NURSE: Hortensia SCOPE: Olympus videoendoscope. ASA CLASS: 3. PREOPERATIVE MEDICATIONS: Dr.Kakkes Miri PROCEDURE IN DETAIL: After obtaining an informed consent, the patient was placed on left lateral decubitus position. The patient was then sedated with the above medications. A bite block was placed between his teeth. The endoscope was then passed through the oropharynx, into the esophagus, and through the stomach and pylorus up to the second and third part of the duodenum. The endoscope was then withdrawn. The 2nd and 3rd part of the duodenal were normal. Duodenal biopsies were obtained The pre-pyloric area and antrum showed mild gastritis. Gastric biopsies were obtained. Increase oozing was noted from biopsy sites. Patient had a large complex hiatal hernia about 10-12 cm in size with the organoaxial rotation but no evidence of obstruction It was difficult to enter the duodenum and extend to the 2nd part of the duodenum because of the hiatal hernia sac There was a short-segment Rivera's for about 2-3 cm from which biopsies were obtained. Increase oozing was noted from biopsy sites. The remaining distal and proximal esophagus were unremarkable except for tertiary contractions The patient tolerated the procedure well without difficulty. COMPLICATIONS : None SPECIMENS: Duodenal biopsies Gastric biopsies GE junction biopsies DISPOSITION: Transfer back to the floor Stable PLAN: 1. Await for biopsy result 2. Will place pt on Protonix 40 mg bid 3. Carafate 1 g p.o. twice a day 4. Soft mechanical diet 5. Hold anticoagulants for now 6. Dietary modifications were discussed 7. Outpatient follow up with sc for elective colonoscopy KAREL JUNIOR MD Sep 05, 2024 19:25
[2024-09-05] MEDS: ATORVASTATIN 20 MG TAB PO SCH (21:08)
[2024-09-06] VITALS (9 sets, daily range): BP systolic 131–169; BP diastolic 75–103; PULSE 72–97; RESP 16–20; TEMP 97.8–98.3; O2SAT 92–98
--- NOTE | 2024-09-06 11:23 | DVHPN2 ---
Progress Note - Dictate Date Seen: Sep 06, 2024 Medical Necessity Reason Pt with a Central, PICC or Fol: No vital signs Vital Sign Date Time Temp Pulse Resp B/P (MAP) Pulse Ox O2 Delivery O2 Flow Rate FiO2 09/06/24 09:41 169/100 09/06/24 09:00 98.0 86 20 98 98.0 09/06/24 08:21 Room Air* 0 21 Total Intake and Output 09/05/24 09/05/24 09/06/24 15:00 23:00 07:00 Intake Total 100 ml 1200 ml 218 ml Output Total 175 ml 850 ml Balance 100 ml 1025 ml -632 ml medications Current Medications Medications Dose Ordered Sig/Abilio Route Start Time Stop Time Status Last Admin Dose Admin Sodium Chloride 1,000 ml @ 120 mls/hr Q8H20M IV 09/03/24 08:30 09/06/24 11:03 120 MLS/HR Ondansetron HCl 4 mg Q4HP PRN IV 09/03/24 08:30 09/03/24 13:17 4 MG Morphine Sulfate 4 mg Q4HPRN PRN IV 09/03/24 08:45 09/03/24 13:22 4 MG Nitroglycerin 0.4 mg Q5MINP PRN SL 09/03/24 08:30 Morphine Sulfate 2 mg Q30M PRN IV 09/03/24 08:30 Diagnostic Test (Pha) 1 strip ACHS 09/03/24 11:30 09/06/24 11:02 1 STRIP Insulin Human Regular ACHS SC 09/03/24 11:30 09/06/24 11:03 3 UNITS Dextrose 50 ml UD PRN IV 09/03/24 08:30 Labetalol HCl 5 mg Q6HP PRN IV 09/03/24 19:30 09/05/24 21:13 5 MG Pantoprazole Sodium 40 mg BID IV 09/03/24 22:00 09/06/24 09:39 40 MG Lorazepam 1 mg ONCE PRN IV 09/03/24 22:00 Benazepril HCl 40 mg DAILY PO 09/05/24 10:00 09/06/24 09:40 40 MG Amlodipine Besylate 10 mg DAILY PO 09/05/24 10:00 09/06/24 09:41 10 MG Atorvastatin Calcium 80 mg HS PO 09/05/24 22:00 11/15/24 21:08 80 MG objective General Appearance: alert, no distress HEENT: EOMI, PERRLA, normal external inspect of ears, no icterus, no nasal drainage Neck: no carotid bruit, no jugular venous distention (JVD), no lymphadenopathy Chest: normal thorax Respiratory: clear to auscultation, normal air movement Cardiovascular: regular rate and rhythm, no diastolic murmur, no jugular venous distention (JVD), no rub, no systolic murmur Abdominal: soft, no hepatomegaly, no mass, no splenomegaly, no tenderness Genitourinary: grossly normal external Musculoskeletal: no joint tenderness, no swelling Extremities: normal pulses, no calf tenderness, no clubbing, no cyanosis, no edema Skin: no bruising, no jaundice, no rash Neurological: alert, No focal deficit laboratory and microbiology Laboratory Tests 09/04/24 05:59 Test 09/04/24 05:59 Range/Units Serum Glucose 134 H 74-106 mg/dL Problem List 1. Metabolic encephalopathy Monitor, neurology consult 2. Upper GI bleed Monitor, GI consult, surgical consult, Sandostatin gtt 3. Large hiatal hernia Monitor, surgical consult 4. Acute blood loss anemia Monitor, daily labs 5. DM II & hyperglycemia Monitor, insulin ss 6. Lactic acidosis Monitor, IV fluids, PPI 7. Acute CVA Monitor, cardiology consult, neurology consult Assessment/Plan Subjective: Patient is awake and alert. Objective: Patient was admitted to the emergency room on September 03 with signs of confusion. Patient also had complaints of abdominal pain. He does have a pre- existing large hiatal hernia. He was seen by GI and general surgery for complaints of possible bowel obstruction. Small bowel series was done; it had no acute findings. Patient had multiple bowel movements due to complaints of possible GI bleed. Patient did have an EGD done yesterday. No active bleeding was found. Patient was found to have mild gastritis and a large ventral hernia. Large hiatal hernia was also noted. GI is not recommending any anticoagulation at this time. She did start the patient on Protonix twice a day, as well as Carafate twice a day. MRI shows small foci of acute ischemia, suspecting embolic infarct. Neurology and cardiology were consulted. Patient has been in sinus and sinus tachycardia. No sign of atrial fibrillation. Cardiology is recommending anticoagulation if cleared by GI, but GI is not clearing at this time. Patient has not been seen by physical therapy. Patient is very lethargic today. Plan: Physical therapy evaluation. Need to arrange home health and PT for outpatient. Continue PPI and carafate as per GI recommendations. GI is not recommending anticoagulation at this time. EEG had no acute findings. Patient was seen by cardiology as well as neurology. Continue current treatment. Possible discharge with home health and PT on Sunday. Plan discussed with: Patient, Other VITOR SCHULTZ NP Sep 06, 2024 11:23
[2024-09-06] MEDS: cloNIDine HCL 0.1 MG TAB PO SCH (13:17)
--- NOTE | 2024-09-06 18:28 | DVHPN2 ---
Progress Note - Dictate Date Seen: Sep 06, 2024 Medical Necessity Reason Pt with a Central, PICC or Fol: No Subjective [place] Goldsmith is evaluated and seen at the bedside in telemetry without complaints or concerns. No cardiac events overnight. Patient is currently hemodynamically stable however, blood pressure was elevated earlier today. There are no labs available for review today. Patient is maintaining normal sinus rhythm with an occasional PVC seen on telemetry review. Continue with current cardiac management to include clonidine 0.2mg BID, atorvastatin 80mg daily, amlodipine 10mg daily, and benazepril 40mg daily. We'll continue to follow from a cardiac perspective. vital signs Vital Sign Date Time Temp Pulse Resp B/P (MAP) Pulse Ox O2 Delivery O2 Flow Rate FiO2 09/06/24 17:00 98.3 80 20 131/81 (98) 98 98.3 09/06/24 08:21 Room Air* 0 21 Total Intake and Output 09/05/24 09/05/24 09/06/24 15:00 23:00 07:00 Intake Total 100 ml 1200 ml 218 ml Output Total 175 ml 850 ml Balance 100 ml 1025 ml -632 ml medications Current Medications Medications Dose Ordered Sig/Abilio Route Start Time Stop Time Status Last Admin Dose Admin Sodium Chloride 1,000 ml @ 120 mls/hr Q8H20M IV 09/03/24 08:30 09/06/24 11:03 120 MLS/HR Ondansetron HCl 4 mg Q4HP PRN IV 09/03/24 08:30 09/03/24 13:17 4 MG Morphine Sulfate 4 mg Q4HPRN PRN IV 09/03/24 08:45 09/03/24 13:22 4 MG Nitroglycerin 0.4 mg Q5MINP PRN SL 09/03/24 08:30 Morphine Sulfate 2 mg Q30M PRN IV 09/03/24 08:30 Diagnostic Test (Pha) 1 strip ACHS 09/03/24 11:30 09/06/24 17:34 1 STRIP Insulin Human Regular ACHS SC 09/03/24 11:30 09/06/24 17:49 3 UNITS Dextrose 50 ml UD PRN IV 09/03/24 08:30 Labetalol HCl 5 mg Q6HP PRN IV 09/03/24 19:30 09/05/24 21:13 5 MG Pantoprazole Sodium 40 mg BID IV 09/03/24 22:00 09/06/24 09:39 40 MG Lorazepam 1 mg ONCE PRN IV 09/03/24 22:00 Benazepril HCl 40 mg DAILY PO 09/05/24 10:00 09/06/24 09:40 40 MG Amlodipine Besylate 10 mg DAILY PO 09/05/24 10:00 09/06/24 09:41 10 MG Atorvastatin Calcium 80 mg HS PO 09/05/24 22:00 09/05/24 21:08 80 MG Clonidine HCl 0.2 mg BID PO 09/06/24 11:45 09/06/24 13:17 0.2 MG Acetaminophen 650 mg Q4HP PRN PO 09/06/24 17:45 laboratory and microbiology Laboratory Tests 09/04/24 05:59 Test 09/04/24 05:59 Range/Units Serum Glucose 134 H 74-106 mg/dL Assessment/Plan Patient is a 69-year-old gentleman who originally presented on September 03, 2000 for epigastric abdominal pain, nausea/vomiting and coffee-ground emesis. Reportedly, the patient was altered on arrival. There has been son report that he did not have flatus at the time of presentation. He was admitted with GI bleeding and altered mental status. While being managed he was found to have CVA and there is question about obstruction/volvulus. Patient has been seen by Neurology and GI and surgery. Cardiology is involved for cardiac aspects of care. Patient denies previous cardiac history himself. Patient denies previous heart failure/irregular heartbeat. He denies previous cardiac problem. Not in acute distress. Not using accessory muscles of breathing. No JVD. Speaks slowly. Mucosa is pink and wet. No goiter. No carotid bruit. Lungs are clear to auscultation. Cardiac: Regular, no thrill/gallop. Abdomen is soft. There is no gross mass. Bowel sound is positive. There is no peripheral edema. Dorsalis pedis is 2+ bilateral Past medical history includes hypertension, diabetes mellitus, anemia, GERD, hyperlipidemia, hiatal hernia and a Holter history of hepatitis-C. Does have history of smoking. Denies alcohol and drug abuse. Family history is positive for hypertension/CVA and heart murmur Echocardiogram of August 03, 2023 had reported mild concentric left ventricular hypertrophy, aortic sclerosis, ejection fraction of 65-70% and no vegetation Hemoglobin 14.4 - 10.7 Creatinine: 2.10 - 1.81 - 1.53 Potassium: 3.5 - 4.5 - 4.2 Lactic acid: 6.9 - 4.6 BNP: 17.98 (within normal limits) Troponin (high sensitive): 6 -7 LDL: 181 Chest x-ray reported: IMPRESSION: Patchy consolidation in the right lower lung. Repeat chest x-ray reported: IMPRESSION: NG tube in stomach No acute cardiopulmonary disease. CT of the abdomen and pelvis reported: IMPRESSION: 1. Gastrointestinal Findings: Large hiatal hernia (12.1 cm) containing almost the entire stomach. 2. Moderate fecal residue in the large bowel loops with fecal impaction in the distal sigmoid colon and rectum. Scattered diverticulosis of the sigmoid colon without evidence of diverticulitis. 3. Liver and Spleen: Mild fatty infiltration of the liver. 4. Tiny calcified granulomas in the spleen. 5. Renal Findings: Small 10 mm cortical cyst in the left kidney interpolar region. No concerning features noted. 6. Hernias: Small omental fat-containing right inguinal hernia. 7. Small omental fat-containing umbilical hernia (18 x 12 mm). 8. Spinal Findings: Mild lumbar dextroscoliosis with vacuum disc changes at L3- L4, L4-L5, and L5-S1. 9. Multilevel degenerative facet arthropathy. 10. Degenerative changes in the bilateral sacroiliac and hip joints. 11. Pulmonary Findings: Linear fibrotic bands in the bilateral lower lobes. 2. Small calcified granuloma in the right lower lobe, with no follow-up required. Small-bowel series reported: Initial firearms instructor view of the abdomen and pelvis appears demonstrates no acute process. Contrast is identified within the colon by 3. This represents a normal small bowel transit time. Gastric volvulus which appears to be organo axial Carotid sonogram revealed: IMPRESSION: 1. No hemodynamically significant stenosis within the carotid arteries. MR of the brain reported: IMPRESSION: 1. Few small foci of acute ischemia, suspect embolic infarcts. Clinical correlation and continued follow-up is recommended. Consider further evaluation with CTA or MRA of the head and neck. EKG revealed sinus tachycardia on arrival Tele reveals sinus rhythm and occasions of sinus tachycardia Echocardiogram reported: Left ventricle: Concentric left ventricular hypertrophy was seen. LVEF was around 60-65%. There was no gross wall motion abnormality. Right ventricle was normal-sized with normal systolic function. Both atria were normal-sized. Aortic valve: Aortic valve was trileaflet. There was no aortic insufficiency/stenosis. There was no mitral/tricuspid regurgitation. Pulmonary valve was not well visualized. As there was no good tricuspid regurgitation jet, right ventricular systolic pressure could not be estimated. There was no pericardial effusion. There was no vegetation seen in this transthoracic study. Patient is a 69-year-old gentleman who presented with abdominal pain/GI bleeding. He was found to have acute CVA. Did have some altered mental status on arrival. Does have history of large hiatal hernia and GI is considering questionable volvulus. Anemia and blood loss has been considered. Did have altered mental status and metabolic encephalopathy was considered. Hiatal hernia GI bleeding Acute blood loss, anemia Diabetes mellitus Encephalopathy, metabolic Acute CVA Uncontrolled diabetes MARY on CKD Hypertensive emergency Cardiac suggestion for management: Manage on telemetry Follow-up electrolytes and kidney function tests and correct abnormalities Fluid resuscitation is advised Control diabetes Consider repeat of CBC Request for D-dimer High potency statin is advised (consider increasing the dose of atorvastatin to 80 mg daily) Daily aspirin is suggested after GI permission/clearance Neurology follow-up Cardiac-miranda, patient is considered moderate risk patient for low risk EGD. Cardiac-miranda, you can proceed with endoscopy under appropriate intra and postoperative hemodynamic monitoring. Avoid hypotension. Lifestyle and risk factor modification Long-term monitor can be arranged as outpatient Further evaluation and management depends on the above and clinical course Thank you for consultation A total of 75 minutes was spent reviewing the patient record, examining the patient, making a diagnostic and therapeutic plan, discussing this plan with medical personnel, following up on diagnostic studies and following the patient for clinical stability excluding any and all procedures. At least 50% of this time was spent in direct, [id number] contact. Thank you for allowing me to participate in this patient's care. Further recommendations will depend on patient's clinical course. Please do not hesitate to contact me if you have any questions or concerns. Plan discussed with: Patient, Other (RN) Provider Statement: I have reviewed the case with my supervising physician. We have agreed with the plan of care. JORGE LUIS RIVERA [employer]UX SYSTEMS ENGINEER Sep 06, 2024 18:28
[2024-09-06] MEDS: ACETAMINOPHEN 325 MG TAB PO PRN (18:32)
--- NOTE | 2024-09-06 22:41 | DVHPN2 ---
Progress Note - Dictate Date Seen: Sep 06, 2024 Medical Necessity Reason Pt with a Central, PICC or Fol: No Subjective No new complaints Patient is tolerating diet EGD findings reviewed with patient, complex large hiatal there was no obstructive symptoms Coffee-ground emesis has resolved EEG and carotid Doppler were negative vital signs Vital Sign Date Time Temp Pulse Resp B/P (MAP) Pulse Ox O2 Delivery O2 Flow Rate FiO2 09/06/24 21:13 145/85 09/06/24 21:00 98.0 82 19 96 98.0 09/06/24 08:21 Room Air* 0 21 Total Intake and Output 09/05/24 09/05/24 09/06/24 15:00 23:00 07:00 Intake Total 100 ml 1200 ml 218 ml Output Total 175 ml 850 ml Balance 100 ml 1025 ml -632 ml medications Current Medications Medications Dose Ordered Sig/Abilio Route Start Time Stop Time Status Last Admin Dose Admin Sodium Chloride 1,000 ml @ 120 mls/hr Q8H20M IV 09/03/24 08:30 09/06/24 11:03 120 MLS/HR Ondansetron HCl 4 mg Q4HP PRN IV 09/03/24 08:30 09/03/24 13:17 4 MG Morphine Sulfate 4 mg Q4HPRN PRN IV 09/03/24 08:45 09/03/24 13:22 4 MG Nitroglycerin 0.4 mg Q5MINP PRN SL 09/03/24 08:30 Morphine Sulfate 2 mg Q30M PRN IV 09/03/24 08:30 Diagnostic Test (Pha) 1 strip ACHS 09/03/24 11:30 09/06/24 21:14 1 STRIP Insulin Human Regular ACHS SC 09/03/24 11:30 09/06/24 21:31 3 UNITS Dextrose 50 ml UD PRN IV 09/03/24 08:30 Labetalol HCl 5 mg Q6HP PRN IV 09/03/24 19:30 09/05/24 21:13 5 MG Pantoprazole Sodium 40 mg BID IV 09/03/24 22:00 09/06/24 21:13 40 MG Lorazepam 1 mg ONCE PRN IV 09/03/24 22:00 Benazepril HCl 40 mg DAILY PO 09/05/24 10:00 09/06/24 09:40 40 MG Amlodipine Besylate 10 mg DAILY PO 09/05/24 10:00 09/06/24 09:41 10 MG Atorvastatin Calcium 80 mg HS PO 09/05/24 22:00 09/06/24 21:13 80 MG Clonidine HCl 0.2 mg BID PO 09/06/24 11:45 09/06/24 21:13 0.2 MG Acetaminophen 650 mg Q4HP PRN PO 09/06/24 17:45 09/06/24 18:32 650 MG objective General Appearance: No Distress, NG tube minimal bilious material, male HEENT: Normal ENT Inspection, Pharynx Normal, TMs Normal Neck: Full Range of Motion, Non-Tender, Normal, Normal Inspection Respiratory: Chest Non-Tender, Lungs Clear, No Accessory Muscle Use, No Respiratory Distress, Normal Breath Sounds Cardiovascular: No Edema, No JVD, No Murmur, No Gallop, Normal Peripheral Pulses, Regular Rate/Rhythm Gastrointestinal: No Organomegaly, Non Tender, No Pulsatile Mass, Normal Bowel Sounds, Soft Extremities: No calf tenderness, Normal capillary refill, Normal inspection, Normal range of motion, Non-tender, No pedal edema Neurologic: Alert,No Motor Deficits, Normal Affect, Normal Mood, No Sensory Deficits laboratory and microbiology Laboratory Tests 09/04/24 05:59 Test 09/04/24 05:59 Range/Units Serum Glucose 134 H 74-106 mg/dL Problems(with codes): (1) GI bleeding (2) Anemia (3) Generalized weakness (4) Hypertensive urgency (5) Hepatitis C antibody positive in blood (6) Coffee ground emesis (7) Right inguinal hernia (8) Umbilical hernia (9) Hiatal hernia without gangrene or obstruction Prognosis Plan Maintained PPI Aspirin NSAIDs Dietary modifications discussed, patient advised to eat a soft pureed diet and chew his food well Drink warm liquids with his meals Outpatient follow up me to discuss elective colonoscopy Continue supportive care Discharge planning as per hospitalist Plan discussed with: Patient KAREL PRITCHARD MD Sep 06, 2024 22:41
[2024-09-07] VITALS (7 sets, daily range): BP systolic 127–143; BP diastolic 74–85; PULSE 57–78; RESP 16–20; TEMP 97.4–98.5; O2SAT 97–99
--- NOTE | 2024-09-07 09:42 | DVHPN2 ---
Progress Note - Dictate Date Seen: Sep 07, 2024 Medical Necessity Reason Pt with a Central, PICC or Fol: No vital signs Vital Sign Date Time Temp Pulse Resp B/P (MAP) Pulse Ox O2 Delivery O2 Flow Rate FiO2 09/07/24 09:35 142/77 09/07/24 09:00 97.6 77 20 97 97.6 09/07/24 07:30 Room Air* 0 21 Total Intake and Output 09/06/24 09/06/24 09/07/24 15:00 23:00 07:00 Intake Total 600 ml 650 ml Output Total 725 ml 400 ml Balance -125 ml 250 ml medications Current Medications Medications Dose Ordered Sig/Abilio Route Start Time Stop Time Status Last Admin Dose Admin Sodium Chloride 1,000 ml @ 120 mls/hr Q8H20M IV 09/03/24 08:30 09/06/24 11:03 120 MLS/HR Ondansetron HCl 4 mg Q4HP PRN IV 09/03/24 08:30 09/03/24 13:17 4 MG Morphine Sulfate 4 mg Q4HPRN PRN IV 09/03/24 08:45 09/03/24 13:22 4 MG Nitroglycerin 0.4 mg Q5MINP PRN SL 09/03/24 08:30 Morphine Sulfate 2 mg Q30M PRN IV 09/03/24 08:30 Diagnostic Test (Pha) 1 strip ACHS 09/03/24 11:30 09/07/24 06:29 1 STRIP Insulin Human Regular ACHS SC 09/03/24 11:30 09/06/24 21:31 3 UNITS Dextrose 50 ml UD PRN IV 09/03/24 08:30 Labetalol HCl 5 mg Q6HP PRN IV 09/03/24 19:30 09/05/24 21:13 5 MG Pantoprazole Sodium 40 mg BID IV 09/03/24 22:00 09/07/24 09:34 40 MG Lorazepam 1 mg ONCE PRN IV 09/03/24 22:00 Benazepril HCl 40 mg DAILY PO 09/05/24 10:00 09/07/24 09:34 40 MG Amlodipine Besylate 10 mg DAILY PO 09/05/24 10:00 09/07/24 09:35 10 MG Atorvastatin Calcium 80 mg HS PO 09/05/24 22:00 09/06/24 21:13 80 MG Clonidine HCl 0.2 mg BID PO 09/06/24 11:45 09/07/24 09:35 0.2 MG Acetaminophen 650 mg Q4HP PRN PO 09/06/24 17:45 09/06/24 18:32 650 MG objective General Appearance: alert, no distress HEENT: EOMI, PERRLA, normal external inspect of ears, no icterus, no nasal drainage Neck: no carotid bruit, no jugular venous distention (JVD), no lymphadenopathy Chest: normal thorax Respiratory: clear to auscultation, normal air movement Cardiovascular: regular rate and rhythm, no diastolic murmur, no jugular venous distention (JVD), no rub, no systolic murmur Abdominal: soft, no hepatomegaly, no mass, no splenomegaly, no tenderness Genitourinary: grossly normal external Musculoskeletal: no joint tenderness, no swelling Extremities: normal pulses, no calf tenderness, no clubbing, no cyanosis, no edema Skin: no bruising, no jaundice, no rash Neurological: alert, No focal deficit laboratory and microbiology Laboratory Tests 09/04/24 05:59 Test 09/04/24 05:59 Range/Units Serum Glucose 134 H 74-106 mg/dL Problem List 1. Metabolic encephalopathy Monitor, neurology consult 2. Upper GI bleed Monitor, GI consult, surgical consult, Sandostatin gtt 3. Large hiatal hernia Monitor, surgical consult 4. Acute blood loss anemia Monitor, daily labs 5. DM II & hyperglycemia Monitor, insulin ss 6. Lactic acidosis Monitor, IV fluids, PPI 7. Acute CVA Monitor, cardiology consult, neurology consult Assessment/Plan Subjective: Patient is awake and alert. Objective: Patient states he is having a hard time formulating his words any slower to respond. Patient was found to have acute CVA, no arrhythmias have been noted, he did have hypertensive urgency when he was admitted. Patient had signs of GI bleed, patient was seen by GI status post EGD. Patient has gastritis, currently on Protonix and Carafate. Per GI not a candidate for anticoagulation at this time. EEG is negative. MRI is positive for CVA. Plan: Repeat labs. Chest x-ray pending. DC plan with home health and PT on Sunday. Plan discussed with: Patient, Other VITOR SCHULTZ NP Sep 07, 2024 09:42
[2024-09-07 11:09] LABS: Basophils # (auto) 0 10 ^3/uL (0-0.2); Basophils % (auto) 0.3 % (0.0-2.0); Eosinophils # (auto) 0.1 10 ^3/uL (0-0.8); Eosinophils % (auto) 1.4 % (0.0-7.0); Hematocrit 30.8 % (41.0-53.0); Hemoglobin 10.1 g/dL (13.5-17.5); Lymphocytes # (auto) 1.9 10 ^3/uL (0.4-5.4); Lymphocytes % (auto) 36.6 % (10.0-50.0); Mean Corpuscular Hemoglobin 31.2 pg (28.0-32.0); Mean Corpuscular Hgb Conc. 32.8 g/dL (32.0-36.0); Monocytes # (auto) 0.5 10 ^3/uL (0-1.3); Neutrophils # (auto) 2.6 10 ^3/uL (1.6-8.6); Neutrophils % (auto) 51.7 % (37.0-80.0); Nucleated Red Blood Cells % 0.1 %; Platelet Count (auto) 182 10^3/uL (140-450); Red Blood Cells 3.24 10^6/uL (4.5-5.90); Red Cell Distribution Width 15.3 % (11.8-14.3); White Blood Cell 5.1 10^3/uL (4.4-10.8)
--- NOTE | 2024-09-07 11:23 | DVH ---
CHEST RADIOGRAPH Indication:f/u rll Technique: Single frontal view of the chest was obtained Comparison: XY CHEST XRAY 1 VIEW on DOS: 09/03/24, XY CHEST PORTABLE on DOS: 09/03/24, XY CHEST LETTY BLE on DOS: 05/04/24, XY CHEST XRAY 1 VIEW on DOS: 08/08/23, XY CHEST PORTABLE on DOS: 08/03/23 FINDINGS: Lines and Tubes: None Lungs: No focal consolidation. Pleura: No effusion. No pneumothorax. Cardiomediastinal contours: Unremarkable Bones: No acute osseous abnormality. IMPRESSION: No acute cardiopulmonary disease.
[2024-09-07 11:25] LABS: Alanine Aminotransferase 12 U/L (7-40); Albumin 3.1 g/dL (3.2-4.8); Anion Gap 7 (5-15); Aspartate Aminotransferase 21 U/L (13-40); Blood Urea Nitrogen 16 mg/dL (9-23); Carbon Dioxide 23 mmol/L (20-31); Chloride 110 mmol/L (98-107); Glucose 166 mg/dL (74-106); Potassium 4.6 mmol/L (3.5-5.1); Sodium 140 mmol/L (136-145)
[2024-09-07 11:26] LABS: Bilirubin, Total 0.7 mg/dL (0.2-1.0); Phosphorus 3.3 mg/dL (2.4-5.1); Total Protein 5.6 g/dL (5.7-8.2)
[2024-09-07 11:56] LABS: Alkaline Phosphatase 53 U/L (46-116)
--- NOTE | 2024-09-07 12:03 | DVHPN2 ---
Progress Note - Dictate Date Seen: Sep 07, 2024 Medical Necessity Reason Pt with a Central, PICC or Fol: No Subjective Bagdad Goldsmith is evaluated and seen at the bedside in telemetry without complaints or concerns. No cardiac events overnight. Patient is currently hemodynamically stable. normal sinus rhythm seen on telemetry review. Hgb 10.1, Creat 1.46. Continue with current cardiac management. We'll continue to follow from a cardiac perspective. vital signs Vital Sign Date Time Temp Pulse Resp B/P (MAP) Pulse Ox O2 Delivery O2 Flow Rate FiO2 09/07/24 09:35 142/77 09/07/24 09:00 97.6 77 20 97 97.6 09/07/24 07:30 Room Air* 0 21 Total Intake and Output 09/06/24 09/06/24 09/07/24 15:00 23:00 07:00 Intake Total 600 ml 650 ml Output Total 725 ml 400 ml Balance -125 ml 250 ml medications Current Medications Medications Dose Ordered Sig/Abilio Route Start Time Stop Time Status Last Admin Dose Admin Sodium Chloride 1,000 ml @ 120 mls/hr Q8H20M IV 09/03/24 08:30 09/06/24 11:03 120 MLS/HR Ondansetron HCl 4 mg Q4HP PRN IV 09/03/24 08:30 09/03/24 13:17 4 MG Morphine Sulfate 4 mg Q4HPRN PRN IV 09/03/24 08:45 09/03/24 13:22 4 MG Nitroglycerin 0.4 mg Q5MINP PRN SL 09/03/24 08:30 Morphine Sulfate 2 mg Q30M PRN IV 09/03/24 08:30 Diagnostic Test (Pha) 1 strip ACHS 09/03/24 11:30 09/07/24 11:52 1 STRIP Insulin Human Regular ACHS SC 09/03/24 11:30 09/07/24 11:53 2 UNITS Dextrose 50 ml UD PRN IV 09/03/24 08:30 Labetalol HCl 5 mg Q6HP PRN IV 09/03/24 19:30 09/05/24 21:13 5 MG Pantoprazole Sodium 40 mg BID IV 09/03/24 22:00 09/07/24 09:34 40 MG Lorazepam 1 mg ONCE PRN IV 09/03/24 22:00 Benazepril HCl 40 mg DAILY PO 09/05/24 10:00 09/07/24 09:34 40 MG Amlodipine Besylate 10 mg DAILY PO 09/05/24 10:00 09/07/24 09:35 10 MG Atorvastatin Calcium 80 mg HS PO 09/05/24 22:00 09/06/24 21:13 80 MG Clonidine HCl 0.2 mg BID PO 09/06/24 11:45 09/07/24 09:35 0.2 MG Acetaminophen 650 mg Q4HP PRN PO 09/06/24 17:45 09/06/24 18:32 650 MG laboratory and microbiology Laboratory Tests 09/07/24 10:58 Test 09/07/24 10:58 Range/Units Serum Glucose 166 H 74-106 mg/dL Assessment/Plan Patient is a 69-year-old gentleman who originally presented on September 03, 2000 for epigastric abdominal pain, nausea/vomiting and coffee-ground emesis. Reportedly, the patient was altered on arrival. There has been son report that he did not have flatus at the time of presentation. He was admitted with GI bleeding and altered mental status. While being managed he was found to have CVA and there is question about obstruction/volvulus. Patient has been seen by Neurology and GI and surgery. Cardiology is involved for cardiac aspects of care. Patient denies previous cardiac history himself. Patient denies previous heart failure/irregular heartbeat. He denies previous cardiac problem. Not in acute distress. Not using accessory muscles of breathing. No JVD. Speaks slowly. Mucosa is pink and wet. No goiter. No carotid bruit. Lungs are clear to auscultation. Cardiac: Regular, no thrill/gallop. Abdomen is soft. There is no gross mass. Bowel sound is positive. There is no peripheral edema. Dorsalis pedis is 2+ bilateral Past medical history includes hypertension, diabetes mellitus, anemia, GERD, hyperlipidemia, hiatal hernia and a Holter history of hepatitis-C. Does have history of smoking. Denies alcohol and drug abuse. Family history is positive for hypertension/CVA and heart murmur Echocardiogram of August 03, 2023 had reported mild concentric left ventricular hypertrophy, aortic sclerosis, ejection fraction of 65-70% and no vegetation Hemoglobin 14.4 - 10.7 Creatinine: 2.10 - 1.81 - 1.53 Potassium: 3.5 - 4.5 - 4.2 Lactic acid: 6.9 - 4.6 BNP: 17.98 (within normal limits) Troponin (high sensitive): 6 -7 LDL: 181 Chest x-ray reported: IMPRESSION: Patchy consolidation in the right lower lung. Repeat chest x-ray reported: IMPRESSION: NG tube in stomach No acute cardiopulmonary disease. CT of the abdomen and pelvis reported: IMPRESSION: 1. Gastrointestinal Findings: Large hiatal hernia (12.1 cm) containing almost the entire stomach. 2. Moderate fecal residue in the large bowel loops with fecal impaction in the distal sigmoid colon and rectum. Scattered diverticulosis of the sigmoid colon without evidence of diverticulitis. 3. Liver and Spleen: Mild fatty infiltration of the liver. 4. Tiny calcified granulomas in the spleen. 5. Renal Findings: Small 10 mm cortical cyst in the left kidney interpolar region. No concerning features noted. 6. Hernias: Small omental fat-containing right inguinal hernia. 7. Small omental fat-containing umbilical hernia (18 x 12 mm). 8. Spinal Findings: Mild lumbar dextroscoliosis with vacuum disc changes at L3- L4, L4-L5, and L5-S1. 9. Multilevel degenerative facet arthropathy. 10. Degenerative changes in the bilateral sacroiliac and hip joints. 11. Pulmonary Findings: Linear fibrotic bands in the bilateral lower lobes. 2. Small calcified granuloma in the right lower lobe, with no follow-up required. Small-bowel series reported: Initial churn tender view of the abdomen and pelvis appears demonstrates no acute process. Contrast is identified within the colon by 3. This represents a normal small bowel transit time. Gastric volvulus which appears to be organo axial Carotid sonogram revealed: IMPRESSION: 1. No hemodynamically significant stenosis within the carotid arteries. MR of the brain reported: IMPRESSION: 1. Few small foci of acute ischemia, suspect embolic infarcts. Clinical correlation and continued follow-up is recommended. Consider further evaluation with CTA or MRA of the head and neck. EKG revealed sinus tachycardia on arrival Tele reveals sinus rhythm and occasions of sinus tachycardia Echocardiogram reported: Left ventricle: Concentric left ventricular hypertrophy was seen. LVEF was around 60-65%. There was no gross wall motion abnormality. Right ventricle was normal-sized with normal systolic function. Both atria were normal-sized. Aortic valve: Aortic valve was trileaflet. There was no aortic insufficiency/stenosis. There was no mitral/tricuspid regurgitation. Pulmonary valve was not well visualized. As there was no good tricuspid regurgitation jet, right ventricular systolic pressure could not be estimated. There was no pericardial effusion. There was no vegetation seen in this transthoracic study. Patient is a 69-year-old gentleman who presented with abdominal pain/GI bleeding. He was found to have acute CVA. Did have some altered mental status on arrival. Does have history of large hiatal hernia and GI is considering questionable volvulus. Anemia and blood loss has been considered. Did have altered mental status and metabolic encephalopathy was considered. Hiatal hernia GI bleeding Acute blood loss, anemia Diabetes mellitus Encephalopathy, metabolic Acute CVA Uncontrolled diabetes MARY on CKD Hypertensive emergency Cardiac suggestion for management: Manage on telemetry Follow-up electrolytes and kidney function tests and correct abnormalities Fluid resuscitation is advised Control diabetes Maintain stable hemodynamics Clonidine 0.2mg BID Amlodipine 10mg dailyz Benazepril 40mg daily Consider repeat of CBC Request for D-dimer High potency statin is advised (consider increasing the dose of atorvastatin to 80 mg daily) Daily aspirin is suggested after GI permission/clearance Neurology follow-up Cardiac-miranda, patient is considered moderate risk patient for low risk EGD. Cardiac-miranda, you can proceed with endoscopy under appropriate intra and postoperative hemodynamic monitoring. Avoid hypotension. Lifestyle and risk factor modification Long-term monitor can be arranged as outpatient Further evaluation and management depends on the above and clinical course Thank you for consultation A total of 75 minutes was spent reviewing the patient record, examining the patient, making a diagnostic and therapeutic plan, discussing this plan with medical personnel, following up on diagnostic studies and following the patient for clinical stability excluding any and all procedures. At least 50% of this time was spent in direct, [id number] contact. Thank you for allowing me to participate in this patient's care. Further recommendations will depend on patient's clinical course. Please do not hesitate to contact me if you have any questions or concerns. Plan discussed with: Patient, Other (RN) Provider Statement: I have reviewed the case with my supervising physician. We have agreed with the plan of care. JORGE LUIS RIVERA Sep 07, 2024 12:03
--- NOTE | 2024-09-07 14:20 | DVHPN2 ---
Progress Note - Dictate Date Seen: Sep 07, 2024 Medical Necessity Reason Pt with a Central, PICC or Fol: No Subjective No new complaints Patient is tolerating diet EGD findings reviewed with patient, complex large hiatal there was no obstructive symptoms Coffee-ground emesis has resolved ; hemoglobin stable at 10.1 EEG and carotid Doppler were negative vital signs Vital Sign Date Time Temp Pulse Resp B/P (MAP) Pulse Ox O2 Delivery O2 Flow Rate FiO2 09/07/24 11:05 127/74 09/07/24 09:00 97.6 77 20 97 97.6 09/07/24 07:30 Room Air* 0 21 Total Intake and Output 09/06/24 09/06/24 09/07/24 15:00 23:00 07:00 Intake Total 600 ml 650 ml Output Total 725 ml 400 ml Balance -125 ml 250 ml medications Current Medications Medications Dose Ordered Sig/Abilio Route Start Time Stop Time Status Last Admin Dose Admin Ondansetron HCl 4 mg Q4HP PRN IV 09/03/24 08:30 09/03/24 13:17 4 MG Morphine Sulfate 4 mg Q4HPRN PRN IV 09/03/24 08:45 09/03/24 13:22 4 MG Nitroglycerin 0.4 mg Q5MINP PRN SL 09/03/24 08:30 Morphine Sulfate 2 mg Q30M PRN IV 09/03/24 08:30 Diagnostic Test (Pha) 1 strip ACHS 09/03/24 11:30 09/07/24 11:52 1 STRIP Insulin Human Regular ACHS SC 09/03/24 11:30 09/07/24 11:53 2 UNITS Dextrose 50 ml UD PRN IV 09/03/24 08:30 Labetalol HCl 5 mg Q6HP PRN IV 09/03/24 19:30 09/05/24 21:13 5 MG Pantoprazole Sodium 40 mg BID IV 09/03/24 22:00 09/07/24 09:34 40 MG Lorazepam 1 mg ONCE PRN IV 09/03/24 22:00 Benazepril HCl 40 mg DAILY PO 09/05/24 10:00 09/07/24 09:34 40 MG Amlodipine Besylate 10 mg DAILY PO 09/05/24 10:00 09/07/24 09:35 10 MG Atorvastatin Calcium 80 mg HS PO 09/05/24 22:00 09/06/24 21:13 80 MG Clonidine HCl 0.2 mg BID PO 09/06/24 11:45 09/07/24 09:35 0.2 MG Acetaminophen 650 mg Q4HP PRN PO 09/06/24 17:45 09/06/24 18:32 650 MG objective General Appearance: No Distress, NG tube minimal bilious material, male HEENT: Normal ENT Inspection, Pharynx Normal, TMs Normal Neck: Full Range of Motion, Non-Tender, Normal, Normal Inspection Respiratory: Chest Non-Tender, Lungs Clear, No Accessory Muscle Use, No Respiratory Distress, Normal Breath Sounds Cardiovascular: No Edema, No JVD, No Murmur, No Gallop, Normal Peripheral Pulses, Regular Rate/Rhythm Gastrointestinal: No Organomegaly, Non Tender, No Pulsatile Mass, Normal Bowel Sounds, Soft Extremities: No calf tenderness, Normal capillary refill, Normal inspection, Normal range of motion, Non-tender, No pedal edema Neurologic: Alert,No Motor Deficits, Normal Affect, Normal Mood, No Sensory Deficits laboratory and microbiology Laboratory Tests 09/07/24 10:58 Test 09/07/24 10:58 Range/Units Serum Glucose 166 H 74-106 mg/dL Problems(with codes): (1) GI bleeding (2) Generalized weakness (3) Anemia (4) Hepatitis C antibody positive in blood (5) Hiatal hernia without gangrene or obstruction (6) Coffee ground emesis Prognosis Plan Maintain on PPI Avoid Aspirin NSAIDs Dietary modifications discussed, patient advised to eat a soft pureed diet and chew his food well Drink warm liquids with his meals Outpatient follow up me to discuss elective colonoscopy and management of hepatitis-C antibody positive Continue supportive care Discharge planning as per hospitalist with PT and home health in am Plan discussed with: Patient KAREL PRITCHARD MD Sep 07, 2024 14:20
[2024-09-08 01:03] VITALS: BP 122/77; PULSE 58; RESP 16; TEMP 97.4; O2SAT 97
[2024-09-08 05:00] VITALS: BP 103/64; PULSE 58; RESP 17; TEMP 97.6; O2SAT 97
[2024-09-08 07:30] VITALS: PULSE 75
--- NOTE | 2024-09-08 08:25 | DVHPN2 ---
Progress Note - Dictate Date Seen: Sep 08, 2024 Medical Necessity Reason Pt with a Central, PICC or Fol: No vital signs Vital Sign Date Time Temp Pulse Resp B/P (MAP) Pulse Ox O2 Delivery O2 Flow Rate FiO2 09/08/24 07:30 Room Air* 0 21 09/08/24 05:00 97.6 58 17 103/64 (77) 97 97.6 Total Intake and Output 09/07/24 09/07/24 09/08/24 15:00 23:00 07:00 Intake Total 400 ml 500 ml Output Total 600 ml 350 ml Balance -200 ml 150 ml medications Current Medications Medications Dose Ordered Sig/Abilio Route Start Time Stop Time Status Last Admin Dose Admin Ondansetron HCl 4 mg Q4HP PRN IV 09/03/24 08:30 09/03/24 13:17 4 MG Morphine Sulfate 4 mg Q4HPRN PRN IV 09/03/24 08:45 09/03/24 13:22 4 MG Nitroglycerin 0.4 mg Q5MINP PRN SL 09/03/24 08:30 Morphine Sulfate 2 mg Q30M PRN IV 09/03/24 08:30 Diagnostic Test (Pha) 1 strip ACHS 09/03/24 11:30 09/08/24 06:01 1 STRIP Insulin Human Regular ACHS SC 09/03/24 11:30 09/07/24 21:55 3 UNITS Dextrose 50 ml UD PRN IV 09/03/24 08:30 Labetalol HCl 5 mg Q6HP PRN IV 09/03/24 19:30 09/05/24 21:13 5 MG Pantoprazole Sodium 40 mg BID IV 09/03/24 22:00 09/07/24 21:33 40 MG Lorazepam 1 mg ONCE PRN IV 09/03/24 22:00 Benazepril HCl 40 mg DAILY PO 09/05/24 10:00 09/07/24 09:34 40 MG Amlodipine Besylate 10 mg DAILY PO 09/05/24 10:00 09/07/24 09:35 10 MG Atorvastatin Calcium 80 mg HS PO 09/05/24 22:00 09/07/24 21:33 80 MG Clonidine HCl 0.2 mg BID PO 09/06/24 11:45 09/07/24 21:34 0.2 MG Acetaminophen 650 mg Q4HP PRN PO 09/06/24 17:45 09/07/24 21:49 650 MG laboratory and microbiology Laboratory Tests 09/07/24 10:58 Test 09/07/24 10:58 Range/Units Serum Glucose 166 H 74-106 mg/dL Assessment/Plan Patient is a 69-year-old gentleman who originally presented on September 03, 2024 for epigastric abdominal pain, nausea/vomiting and coffee-ground emesis. Reportedly, the patient was altered on arrival. There has been some report that he did not have flatus at the time of presentation. He was admitted with GI bleeding and altered mental status. While being managed he was found to have CVA and there was question about obstruction/volvulus. Patient has been seen by Neurology and GI and surgery. Cardiology is involved for cardiac aspects of care. Patient denies previous cardiac history himself. Patient denies previous heart failure/irregular heartbeat. He denies previous cardiac problem. Not in acute distress. Not using accessory muscles of breathing. No JVD. Speaks slowly. Mucosa is pink and wet. No goiter. No carotid bruit. Lungs are clear to auscultation. Cardiac: Regular, no thrill/gallop. Abdomen is soft. There is no gross mass. Bowel sound is positive. There is no peripheral edema. Dorsalis pedis is 2+ bilateral Past medical history includes hypertension, diabetes mellitus, anemia, GERD, hyperlipidemia, hiatal hernia and a Holter history of hepatitis-C. Does have history of smoking. Denies alcohol and drug abuse. Family history is positive for hypertension/CVA and heart murmur Echocardiogram of August 03, 2023 had reported mild concentric left ventricular hypertrophy, aortic sclerosis, ejection fraction of 65-70% and no vegetation Hemoglobin 14.4 - 10.7 - 10.1 Creatinine: 2.10 - 1.81 - 1.53 - 1.46 Potassium: 3.5 - 4.5 - 4.2 - 4.6 Lactic acid: 6.9 - 4.6 BNP: 17.98 (within normal limits) Troponin (high sensitive): 6 -7 LDL: 181 Chest x-ray reported: IMPRESSION: Patchy consolidation in the right lower lung. Repeat chest x-ray reported: IMPRESSION: NG tube in stomach No acute cardiopulmonary disease. Repeat chest xry revealed: IMPRESSION: No acute cardiopulmonary disease. CT of the abdomen and pelvis reported: IMPRESSION: 1. Gastrointestinal Findings: Large hiatal hernia (12.1 cm) containing almost the entire stomach. 2. Moderate fecal residue in the large bowel loops with fecal impaction in the distal sigmoid colon and rectum. Scattered diverticulosis of the sigmoid colon without evidence of diverticulitis. 3. Liver and Spleen: Mild fatty infiltration of the liver. 4. Tiny calcified granulomas in the spleen. 5. Renal Findings: Small 10 mm cortical cyst in the left kidney interpolar region. No concerning features noted. 6. Hernias: Small omental fat-containing right inguinal hernia. 7. Small omental fat-containing umbilical hernia (18 x 12 mm). 8. Spinal Findings: Mild lumbar dextroscoliosis with vacuum disc changes at L3- L4, L4-L5, and L5-S1. 9. Multilevel degenerative facet arthropathy. 10. Degenerative changes in the bilateral sacroiliac and hip joints. 11. Pulmonary Findings: Linear fibrotic bands in the bilateral lower lobes. 2. Small calcified granuloma in the right lower lobe, with no follow-up required. Small-bowel series reported: Initial quality eng view of the abdomen and pelvis appears demonstrates no acute process. Contrast is identified within the colon by 3. This represents a normal small bowel transit time. Gastric volvulus which appears to be organo axial Carotid sonogram revealed: IMPRESSION: 1. No hemodynamically significant stenosis within the carotid arteries. MR of the brain reported: IMPRESSION: 1. Few small foci of acute ischemia, suspect embolic infarcts. Clinical correlation and continued follow-up is recommended. Consider further evaluation with CTA or MRA of the head and neck. EKG revealed sinus tachycardia on arrival Tele reveals sinus rhythm and occasions of sinus tachycardia Echocardiogram reported: Left ventricle: Concentric left ventricular hypertrophy was seen. LVEF was around 60-65%. There was no gross wall motion abnormality. Right ventricle was normal-sized with normal systolic function. Both atria were normal-sized. Aortic valve: Aortic valve was trileaflet. There was no aortic insufficiency/stenosis. There was no mitral/tricuspid regurgitation. Pulmonary valve was not well visualized. As there was no good tricuspid regurgitation jet, right ventricular systolic pressure could not be estimated. There was no pericardial effusion. There was no vegetation seen in this transthoracic study. Patient is a 69-year-old gentleman who presented with abdominal pain/GI bleeding. He was found to have acute CVA. Did have some altered mental status on arrival. Does have history of large hiatal hernia and GI is considering questionable volvulus (ruled out by EGD). Anemia and blood loss has been considered. Did have altered mental status and metabolic encephalopathy was considered. Hiatal hernia GI bleeding Acute blood loss, anemia Diabetes mellitus Encephalopathy, metabolic Acute CVA Uncontrolled diabetes MARY on CKD Hypertensive emergency s/p EGD Cardiac suggestion for management: Manage on telemetry Follow-up electrolytes and kidney function tests and correct abnormalities Fluid resuscitation is advised High potency statin Daily aspirin is suggested (only after GI permission/clearance. Presently GI is suggesting to avoid it) Neurology follow-up Lifestyle and risk factor modification Long-term monitor can be arranged as outpatient Further evaluation and management depends on the above and clinical course A total of 55 minutes was spent reviewing the patient record, examining the patient, making a diagnostic and therapeutic plan, discussing this plan with medical personnel, following up on diagnostic studies and following the patient for clinical stability excluding any and all procedures. At least 50% of this time was spent in direct, [id number] contact. Thank you for allowing me to participate in this patient's care. Further recommendations will depend on patient's clinical course. Please do not hesitate to contact me if you have any questions or concerns. This medical document was created using electronic medical record system with [employer] computerized dictation system. Although this document has been carefully reviewed, there may still be some phonetic and typographical errors. These areas are purely typographical due to the imperfection of the software programs, and do not reflect any compromise in the patient's medical care. Plan discussed with: Patient, Other (nurse) NEVAEH FALCON MD Sep 08, 2024 08:25
--- NOTE | 2024-09-08 08:25 | DVHPN2 ---
Progress Note - Dictate Medical Necessity Reason Pt with a Central, PICC or Fol: No vital signs Vital Sign Date Time Temp Pulse Resp B/P (MAP) Pulse Ox O2 Delivery O2 Flow Rate FiO2 09/08/24 07:30 Room Air* 0 21 09/08/24 05:00 97.6 58 17 103/64 (77) 97 97.6 Total Intake and Output 09/07/24 09/07/24 09/08/24 15:00 23:00 07:00 Intake Total 400 ml 500 ml Output Total 600 ml 350 ml Balance -200 ml 150 ml medications Current Medications Medications Dose Ordered Sig/Abilio Route Start Time Stop Time Status Last Admin Dose Admin Ondansetron HCl 4 mg Q4HP PRN IV 09/03/24 08:30 09/03/24 13:17 4 MG Morphine Sulfate 4 mg Q4HPRN PRN IV 09/03/24 08:45 09/03/24 13:22 4 MG Nitroglycerin 0.4 mg Q5MINP PRN SL 09/03/24 08:30 Morphine Sulfate 2 mg Q30M PRN IV 09/03/24 08:30 Diagnostic Test (Pha) 1 strip ACHS 09/03/24 11:30 09/08/24 06:01 1 STRIP Insulin Human Regular ACHS SC 09/03/24 11:30 09/07/24 21:55 3 UNITS Dextrose 50 ml UD PRN IV 09/03/24 08:30 Labetalol HCl 5 mg Q6HP PRN IV 09/03/24 19:30 09/05/24 21:13 5 MG Pantoprazole Sodium 40 mg BID IV 09/03/24 22:00 09/07/24 21:33 40 MG Lorazepam 1 mg ONCE PRN IV 09/03/24 22:00 Benazepril HCl 40 mg DAILY PO 09/05/24 10:00 09/07/24 09:34 40 MG Amlodipine Besylate 10 mg DAILY PO 09/05/24 10:00 09/07/24 09:35 10 MG Atorvastatin Calcium 80 mg HS PO 09/05/24 22:00 09/07/24 21:33 80 MG Clonidine HCl 0.2 mg BID PO 09/06/24 11:45 09/07/24 21:34 0.2 MG Acetaminophen 650 mg Q4HP PRN PO 09/06/24 17:45 09/07/24 21:49 650 MG objective General Appearance: alert, no distress HEENT: EOMI, PERRLA, normal external inspect of ears, no icterus, no nasal drainage Neck: no carotid bruit, no jugular venous distention (JVD), no lymphadenopathy Chest: normal thorax Respiratory: clear to auscultation, normal air movement Cardiovascular: regular rate and rhythm, no diastolic murmur, no jugular venous distention (JVD), no rub, no systolic murmur Abdominal: soft, no hepatomegaly, no mass, no splenomegaly, no tenderness Genitourinary: grossly normal external Musculoskeletal: no joint tenderness, no swelling Extremities: normal pulses, no calf tenderness, no clubbing, no cyanosis, no edema Skin: no bruising, no jaundice, no rash Neurological: alert, No focal deficit laboratory and microbiology Laboratory Tests 09/07/24 10:58 Test 09/07/24 10:58 Range/Units Serum Glucose 166 H 74-106 mg/dL Problem List 1. Metabolic encephalopathy Monitor, neurology consult 2. Upper GI bleed Monitor, GI consult, surgical consult, Sandostatin gtt 3. Large hiatal hernia Monitor, surgical consult 4. Acute blood loss anemia Monitor, daily labs 5. DM II & hyperglycemia Monitor, insulin ss 6. Lactic acidosis Monitor, IV fluids, PPI 7. Acute CVA Monitor, cardiology consult, neurology consult Assessment/Plan Subjective: Patient is awake and alert. Objective: Patient states he is having a hard time formulating his words any slower to respond. Patient was found to have acute CVA, no arrhythmias have been noted, he did have hypertensive urgency when he was admitted. Patient had signs of GI bleed, patient was seen by GI status post EGD. Patient has gastritis, currently on Protonix and Carafate. Per GI not a candidate for anticoagulation at this time. EEG is negative. MRI is positive for CVA. Plan: Repeat labs. Chest x-ray pending. DC plan with home health and PT on Sunday. VITOR SCHULTZ NP Sep 08, 2024 08:24
[2024-09-08 09:00] VITALS: BP 114/66; PULSE 76; RESP 18; TEMP 97.9; O2SAT 91
[2024-09-08] MEDS ORDERED: PANT40TA2 PO (12:27)
[2024-09-08] MEDS ORDERED: ATOR-47 PO (12:27)
[2024-09-08] MEDS ORDERED: CLON0.2T PO (12:27)
[2024-09-08] MEDS ORDERED: SUCR1TAB31 OR (12:27)
--- NOTE | 2024-09-08 12:31 | DVHDS2 ---
Discharge Summary Date of Admission Sep 03, 2024 at 08:28 Date of Discharge: Sep 08, 2024 Labs/Diagnostic Data: Laboratory Results Test 09/08/24 06:00 09/07/24 10:58 09/04/24 05:59 09/03/24 12:46 POC Glucose 121 mg/dl (70-106) White Blood Count 5.1 10^3/uL (4.4-10.8) Red Blood Count 3.24 10^6/uL (4.5-5.90) Hemoglobin 10.1 g/dL (13.5-17.5) Hematocrit 30.8 % (41.0-53.0) Mean Corpuscular Volume 95.0 fL (80.0-100.0) Mean Corpuscular Hemoglobin 31.2 pg (28.0-32.0) Mean Corpuscular Hemoglobin Concent 32.8 g/dL (32.0-36.0) Red Cell Distribution Width 15.3 % (11.8-14.3) Platelet Count 182 10^3/uL (140-450) Mean Platelet Volume 9.0 fL (6.9-10.8) Neutrophils (%) (Auto) 51.7 % (37.0-80.0) Lymphocytes (%) (Auto) 36.6 % (10.0-50.0) Monocytes (%) (Auto) 10.0 % (0.0-12.0) Eosinophils (%) (Auto) 1.4 % (0.0-7.0) Basophils (%) (Auto) 0.3 % (0.0-2.0) Neutrophils # (Auto) 2.6 10 ^3/uL (1.6-8.6) Lymphocytes # (Auto) 1.9 10 ^3/uL (0.4-5.4) Monocytes # (Auto) 0.5 10 ^3/uL (0-1.3) Eosinophils # (Auto) 0.1 10 ^3/uL (0-0.8) Basophils # (Auto) 0 10 ^3/uL (0-0.2) Nucleated Red Blood Cells 0.1 % Sodium Level 140 mmol/L (136-145) Potassium Level 4.6 mmol/L (3.5-5.1) Chloride Level 110 mmol/L (98-107) Carbon Dioxide Level 23 mmol/L (20-31) Anion Gap 7 (5-15) Blood Urea Nitrogen 16 mg/dL (9-23) Creatinine 1.46 mg/dL (0.700-1.30) Glomerular Filtration Rate Calc 52 mL/min (>90) BUN/Creatinine Ratio 11.0 (10.0-20.0) Serum Glucose 166 mg/dL (74-106) Calcium Level 9.0 mg/dL (8.7-10.4) Phosphorus Level 3.3 mg/dL (2.4-5.1) Magnesium Level 2.0 mg/dL (1.6-2.6) Total Bilirubin 0.7 mg/dL (0.2-1.0) Aspartate Amino Transferase (AST) 21 U/L (13-40) Alanine Aminotransferase (ALT) 12 U/L (7-40) Alkaline Phosphatase 53 U/L (46-116) Total Protein 5.6 g/dL (5.7-8.2) Albumin 3.1 g/dL (3.2-4.8) Triglycerides Level 158 mg/dL (< 150) Cholesterol Level 262 mg/dL (< 200) LDL Cholesterol 181 mg/dL (< 100) HDL Cholesterol 41 mg/dL (40-59) Lactate Dehydrogenase 203 U/L (120-246) Beta-Hydroxybutyric Acid 1.243 mmol/L (< 0.4) Test 09/03/24 04:36 09/03/24 03:31 09/03/24 02:43 09/03/24 01:30 Urine Color Light-yellow (Yellow) Urine Clarity Clear (Clear) Urine pH 6.5 (5.0-9.0) Urine Specific [place] 1.047 (1.001-1.035) Urine Protein 2+ (Negative) Urine Ketones 1+ (Negative) Urine Blood Negative /uL (Negative) Urine Nitrite Negative (Negative) Urine Bilirubin Negative (Negative) Urine Urobilinogen Normal mg/dL (Negative) Urine Leukocyte Esterase Negative /uL (Negative) Urine RBC 1 /hpf (0 - 3) Urine WBC 2 /hpf (0 - 3) Urine Squamous Epithelial Cells Few /hpf (<5) Urine Bacteria None seen /hpf (None Seen) Urine Glucose 4+ mg/dL (Normal) Lactic Acid Level 4.6 mmol/L (0.4-2.0) Blood Gas Specimen Type Venous Blood Gas Sample Site Vbg - n/a Blood Gas Patient Temperature 37.0 Arterial Blood Date Drawn [id number] Syd Test N/a Venous Blood pH 7.363 (7.320-7.430) Venous Blood pCO2 at Patient Temp 46.1 mmHg (38.0-54.0) Venous Blood pO2 at Patient Temp 41.8 mmHg (23.0-48.0) Venous Blood HCO3 25.6 mmol/L (22.0-29.0) Venous Bld O2 Saturation (Measured) 72.6 % (60.0-85.0) Venous Blood Base Excess -0.1 mmol/L (-2.0-3.0) Venous Blood Total Hemoglobin 13.6 g/dL (13.5-17.5) Venous Blood Oxyhemoglobin 71.1 % (0.0-79.0) Venous Blood Carboxyhemoglobin 1.3 % (0.5-1.5) Venous Blood Methemoglobin 0.7 % (0.0-1.5) Blood Gas Liter Flow 0.00 Blood Gas Modality Room air FiO2 % 21.0 Specimen Drawn By [facility] Blood Gas Comments venous Troponin I High Sensitivity 7 ng/L (</=54) Test 09/03/24 00:30 Prothrombin Time 11.3 sec (9.3-11.8) Prothrombin Time INR 1.07 (0.9-1.15) Activated Partial Thromboplast Time 22.9 SEC (24.5-34.5) B-Type Natriuretic Peptide 17.98 pg/mL (0-100) Lipase 49 U/L (12-53) Other Laboratory Tests 09/07/24 10:58 Brief Hx & Hospital Course: 69 yo male patient c/o 07/31 epigastric abdominal pain with associated nausea and coffee ground emesis. Per patient became altered so she called EMS. Patient was admitted on September 03, 2024. Patient was initially found to be confused in the emergency room. Patient was admitted for GI bleed related to hemoptysis. Patient status post EGD by gastroenterology. Patient also had coffee-ground emesis and hepatitis C. Patient was found to have gastritis and a large hiatal hernia. Patient also had a possible small bowel obstruction. Patient seen by general surgery. Small bowel series was done. No obstruction was found. Patient had multiple bowel movements. Patient has a large hiatal hernia. Per GI patient is not currently a candidate for anticoagulation. MRI shows acute CVA. Patient was initially having dysarthria however his condition improved and his mentation and speech was at baseline at the day of discharge. Patient was seen by physical therapy. They did recommend a front wheel walker. Patient was also seen by neurology. EEG was negative. Patient to follow-up with cardiology outpatient for outpatient Holter monitor to rule out any antiarrhythmic. Patient was negative for atrial fibrillation during his hospital stay. Patient will also need to hold off on anticoagulation due to concern for GI bleed. Patient to follow-up with GI and cardiology to determine if patient will resume baby aspirin outpatient and on Plavix to prevent any further strokes at this time. The patient received proper medical treatment and medications. Vital signs, Imaging and Laboratory Work was monitored daily. All consults recommendations were followed as provided. There were no complaints or new complaints upon discharge, all questions and concerns were answered. Patient was advised to return to the ER or call 911 if any headaches, dizziness, shortness of breath, chest pain, bleeding, fevers, or worsening of medical condition. Patient/Family was counseled about treatment plan, medications, possible side effects, patient verbalized understanding. All questions were answered to the best of my ability. The patient symptoms improved and they are okay to be DC. Condition at Discharge: Stable Final Diagnosis/Problems List ACUTE CVA- WILL NEED HOLTER MONITOR FROM CARDIOLOGY OUTPT HYPERTENSIVE URGENCY COFFEE GROUND EMESIS, GASTRITIS LARGE HIATAL HERNIA BOWEL OBSTRUCTION RULED OUT Metabolic encephalopathy Upper GI bleed Acute blood loss anemia DM II & hyperglycemia Lactic acidosis Discharge Disposition: Home Discharge Instruct/Medications Diet: Cardiac 2g Na,low cholest Activity: No Restrictions, As Tolerated Follow Up/Referral: NEEDS F/U CARDILOGY FOR HOLTER MONITOR Discharge Statement: "Patient was advised to return to the ER or call 911 if any headaches, dizziness, shortness of breath, chest pain, abdominal pain, bleeding, fevers, or worsening of medical condition. Patient was counseled about treatment plan, medications, possible side effects, patientverbalized understanding. All questions were answered to the best of my ability. This discharge took greater then 30 minutes in planning, reviewing documentation, counseling the patient, and discussing with other team members." ASSESSMENT ASSESSMENT Assessment ACUTE CVA- WILL NEED HOLTER MONITOR FROM CARDIOLOGY OUTPT HYPERTENSIVE URGENCY COFFEE GROUND EMESIS, GASTRITIS LARGE HIATAL HERNIA BOWEL OBSTRUCTION RULED OUT VITOR SCHULTZ NP Sep 08, 2024 12:31
[2024-09-08 12:39] VITALS: BP 140/75; PULSE 59; RESP 20; TEMP 97.7; O2SAT 100
== END 2024-09-08 14:15 | disposition home or self-care (01) | DRG 377 ==
LOC: EDUNIT# 00:03 → ER 00:03 → EDBD 00:03 → TELE 08:28 → TELE-WESTW 21:23
PROVIDERS: ADMIT Nurse Practitioner; ATTEND Nurse Practitioner
PROC: 0DB68ZX Excision of Stomach, Via Natural or Artificial Opening Endoscopic, Diagnostic (ICD-10-PCS; 2024-09-05)
PROC: 0DB48ZX Excision of Esophagogastric Junction, Via Natural or Artificial Opening Endoscopic, Diagnostic (ICD-10-PCS; 2024-09-05)
PROC: 0DB98ZX Excision of Duodenum, Via Natural or Artificial Opening Endoscopic, Diagnostic (ICD-10-PCS; principal; 2024-09-05 16:15)
DX: K29.71 Gastritis, unspecified, with bleeding (principal); G93.41 Metabolic encephalopathy; I63.9 Cerebral infarction, unspecified; D62 Acute posthemorrhagic anemia; E87.20 Acidosis, unspecified; I13.0 Hypertensive heart and chronic kidney disease with heart failure and stage 1 through stage 4 chronic kidney disease, or unspecified chronic kidney disease; I16.1 Hypertensive emergency; N17.9 Acute kidney failure, unspecified; K42.9 Umbilical hernia without obstruction or gangrene; E11.65 Type 2 diabetes mellitus with hyperglycemia; K40.90 Unilateral inguinal hernia, without obstruction or gangrene, not specified as recurrent; K44.9 Diaphragmatic hernia without obstruction or gangrene; R47.1 Dysarthria and anarthria; K56.41 Fecal impaction; K57.30 Diverticulosis of large intestine without perforation or abscess without bleeding; K63.5 Polyp of colon; K64.8 Other hemorrhoids; M41.9 Scoliosis, unspecified; M47.819 Spondylosis without myelopathy or radiculopathy, site unspecified; K21.9 Gastro-esophageal reflux disease without esophagitis; E11.22 Type 2 diabetes mellitus with diabetic chronic kidney disease; F17.200 Nicotine dependence, unspecified, uncomplicated; N18.9 Chronic kidney disease, unspecified; K22.70 Barrett's esophagus without dysplasia; I50.9 Heart failure, unspecified; B19.20 Unspecified viral hepatitis C without hepatic coma; Z83.3 Family history of diabetes mellitus; Z82.49 Family history of ischemic heart disease and other diseases of the circulatory system; Z82.3 Family history of stroke; Z79.899 Other long term (current) drug therapy; Z79.84 Long term (current) use of oral hypoglycemic drugs; Z79.82 Long term (current) use of aspirin
CPT/HCPCS: 36415; 36600; 70551; 71045; 74177; 74250; 80053; 80061; 81001; 82010; 82805; 82962; 83605; 83615; 83690; 83735; 83880; 84100; 84484; 85025; 85610; 85730; 86850; 86900; 86901; 93005; 93306; 93886; 95819; 96365; 96375; 97110; 97163; 97530; 99291; G0378; J1100; J1815; J2250; J2405; J2470; J2704

== ENCOUNTER 2024-12-09 09:02 | Inpatient (IN) | payer BC, MEDICAID ==
[~2024-12-09] VITALS: Ht 180.3 cm; Wt 94.5 kg
[~2024-12-09 09:02] MED LIST changes: +ATOR-47 PO; +CLON0.2T PO; +DAPA1TAB4 PO; -FER325T PO; +SUCR1TAB31 OR
--- NOTE | 2024-12-09 09:21 | ED.PDOC ---
HPI (NEURO) HPI Comments 69 year old male presents to the ED with chief complaint of bilateral lower extremity weakness. Patient reports that he has been unable to walk on his own since yesterday due to his legs both being weak along with having an associated headache. Patient relays that he had a stroke in August of last year with some left sided deficits noted, but he had still been able to walk on his own with a cane, now he cannot. Patient denies any numbness, slurred speech, chest pain, SOB, dizziness, or facial droop. Time Seen by MD: 09:15 Primary Care Provider: LEANNA Reviewed Notes: Nurses Notes, Medications, Allergies Information Source: Patient, Spouse Mode of Arrival: Wheelchair Severity: Moderate Dizziness/Weakness Severity: Unable to do activities Headache Severity: Mild Timing: Hours Duration: Since onset Prehospital treatment: None Headache Quality: Aching Headache Location: Generalized Weakness Location: (R) Leg, (L) Leg Onset: At rest Circumstances: Spontaneous Symptoms: Weakness History of: CVA, GI Bleed Modifying factors: Nothing Associated Signs and Symptoms: Headache, Weakness Past Medical History PAST MEDICAL HISTORY: Anemia, CHF, CVA, DM, GERD, High Lipids, HTN Surgical History: Denies all surgeries Family History Family History: Reviewed,noncontributory to illness Social History Smoker: Non-Smoker Alcohol: Denies ETOH Use Drugs: Denies Drug Use Lives In: Home Constitutional: denies: chills, diaphoresis, fatigue, fever, malaise, sweats, weakness, others EENTM: denies: blurred vision, double vision, ear bleeding, ear discharge, ear drainage, ear pain, ear ringing, eye pain, eye redness, hearing loss, mouth pain, mouth swelling, nasal discharge, nose bleeding, nose congestion, nose pain, photophobia, tearing, throat pain, throat swelling, voice changes, others Respiratory: denies: cough, hemoptysis, orthopnea, SOB at rest, shortness of breath, SOB with excertion, stridor, wheezing, others Cardiovascular: denies: chest pain, dizzy spells, diaphoresis, Dyspnea on exertion, edema, irregular heart beat, left arm pain, lightheadedness, palpitations, PND, syncope, others Gastrointestinal: denies: abdomen distended, abdominal pain, blood streaked bowels, constipated, diarrhea, dysphagia, difficulty swallowing, hematemesis, melena, nausea, poor appetite, poor fluid intake, rectal bleeding, rectal pain, vomiting, others Genitourinary: denies: burning, dysuria, flank pain, frequency, hematuria, incontinence, penile discharge, penile sore, pain, testicle pain, testicle swelling, urgency, others Neurological: reports: headache, weakness (Bilateral lower extremities); denies: dizziness, fainting, left sided numbness, left sided weakness, numbness, paresthesia, pre-existing deficit, right sided numbness, right sided weakness, seizure, speech problems, tingling, tremors, others Musculoskeletal: denies: back pain, gout, joint pain, joint swelling, muscle pain, muscle stiffness, neck pain, others Integumetry: denies: bruises, change in color, change in hair/nails, dryness, laceration, lesions, lumps, rash, wounds, others Allergic/Immunocompromised: denies: Difficulty Healing, Frequent Infections, Hives, Itching, others Hematologic/Lymphatic: denies: anemia, blood clots, easy bleeding, easy bruising, swollen glands, others Endocrine: denies: excessive hunger, excessive sweating, excessive thirst, excessive urination, flushing, intolerance to cold, intolerance to heat, unexplained weight gain, unexplained weight loss, others Psychiatric: denies: anxiety, bipolar disorder, depression, hopeless, panic disorder, schizophrenia, sleepless, suicidal, others All Other Systems: Reviewed and Negative Physical Exam General Appearance: Moderate Distress, Normal HEENT: Normal ENT Inspection, PERRL/EOMI Neck: Full Range of Motion, Non-Tender, Normal, Normal Inspection Respiratory: Chest Non-Tender, Lungs Clear, No Accessory Muscle Use, No Respiratory Distress, Normal Breath Sounds Cardiovascular: No Edema, No JVD, No Murmur, No Gallop, Normal Peripheral Pulses, Regular Rate/Rhythm Breast Exam: Deferred Gastrointestinal: No Organomegaly, Non Tender, No Pulsatile Mass, Normal Bowel Sounds, Soft Genitalia: Deferred Pelvic: Deferred Rectal: Deferred Extremities: No calf tenderness, Normal capillary refill, Normal inspection, Normal range of motion, Non-tender, No pedal edema Musculoskeletal : Apperance: Normal Neurologic: laminator printed circuit boards II-XII nml as Tested, Disoriented, No Motor Deficits, Normal Affect, Normal Mood, No Sensory Deficits Cerebellar Function: NOT DONE Reflexes: NOT DONE Skin: Dry, Normal Color, Warm Lymphatic: No Adenopathy Was a procedure done? Was a procedure done?: No Differential Diagnosis (SZ) Seizure: Psychogenic Seizure, Closed Head Injury, CVA/TIA X-Ray, Labs, Meds, VS Vital Signs Date Time Temp Pulse Resp B/P (MAP) Pulse Ox O2 Delivery O2 Flow Rate FiO2 12/09/24 09:20 75 12/09/24 09:19 98.5 77 18 184/106 (132) 97 182/98 (126) Lab Test 12/09/24 10:28 12/09/24 09:28 12/09/24 09:14 Range/Units White Blood Count 4.0 L 4.4-10.8 10^3/uL Red Blood Count 4.64 4.5-5.90 10^6/uL Hemoglobin 12.8 L 13.5-17.5 g/dL Hematocrit 39.6 L 41.0-53.0 % Mean Corpuscular Volume 85.3 80.0-100.0 fL Mean Corpuscular Hemoglobin 27.6 L 28.0-32.0 pg Mean Corpuscular Hemoglobin Concent 32.3 32.0-36.0 g/dL Red Cell Distribution Width 17.6 H 11.8-14.3 % Platelet Count 207 140-450 10^3/uL Mean Platelet Volume 8.8 6.9-10.8 fL Neutrophils (%) (Auto) 51.6 37.0-80.0 % Lymphocytes (%) (Auto) 38.2 10.0-50.0 % Monocytes (%) (Auto) 8.4 0.0-12.0 % Eosinophils (%) (Auto) 1.0 0.0-7.0 % Basophils (%) (Auto) 0.8 0.0-2.0 % Neutrophils # (Auto) 2.1 1.6-8.6 10 ^3/uL Lymphocytes # (Auto) 1.5 0.4-5.4 10 ^3/uL Monocytes # (Auto) 0.3 0-1.3 10 ^3/uL Eosinophils # (Auto) 0 0-0.8 10 ^3/uL Basophils # (Auto) 0 0-0.2 10 ^3/uL Nucleated Red Blood Cells 0.1 % Hemoglobin A1c 7.6 H <5.7 % A1C Sodium Level 137 136-145 mmol/L Potassium Level 5.0 3.5-5.1 mmol/L Chloride Level 107 98-107 mmol/L Carbon Dioxide Level 21 20-31 mmol/L Anion Gap 9 5-15 Blood Urea Nitrogen 12 9-23 mg/dL Creatinine 1.61 H 0.700-1.30 mg/dL Glomerular Filtration Rate Calc 46 >90 mL/min BUN/Creatinine Ratio 7.5 L 10.0-20.0 Serum Glucose 297 H 74-106 mg/dL Calcium Level 9.5 8.7-10.4 mg/dL Troponin I High Sensitivity 3 L </=54 ng/L Triglycerides Level Pending Cholesterol Level Pending LDL Cholesterol Pending HDL Cholesterol Pending POC Glucose 266 H 70-106 mg/dl CT Head: FINDINGS: Supratentorial Region: No evidence for large acute territorial ischemia. No intracranial hemorrhage is noted. Confluent white matter hypoattenuating foci are noted bilaterally, which typically reflect chronic microvascular ischemic changes. Posterior Fossa: No acute abnormality. Brainstem: Unremarkable. Sellar/Suprasellar Region: Unremarkable. Ventricles, Cisterns, Sulci: Age-appropriate. Orbits: Unremarkable. Paranasal Sinuses: Unremarkable. Mastoid Air Cells: Unremarkable. Vasculature: Intracranial arterial calcified plaque formation noted. Bones/Soft Tissues: No acute abnormality. Other: None. IMPRESSION: 1. No acute intracranial process. 2. Moderate chronic microvascular ischemic changes. Patient is slightly confused. Family member at bedside. Blood sugar elevated. Blood pressure elevated. Possible CVA. CT of the head reviewed does not show any acute changes. MRI. Explained to the family. Continue cardiac monitoring. Images Reviewed?: Images reviewed and evaluated by me Time of 1ST Reevaluation: 10:15 Reevaluation 1ST: Unchanged Patient Education/Counseling: Diagnosis, Treatment Family Education/Counseling: Diagnosis, Treatment Additional Information I reviewed the following notes from patient's past medical encounters: 09/03/24 for CVA and large hiatal hernia The following tests were ordered, and results were reviewed by me: Head CT, BMP, CBC, Troponin I reviewed and agreed with the following test results read by other providers: Head CT Additional Information was gathered from interviewing the following independent historians: I discussed treatment and results with medical personnel and . Departure 1 Departure Time of Disposition: 13:55 Impression: Primary Impression: CVA (cerebral vascular accident) Qualified Codes: I63.9 - Cerebral infarction, unspecified Additional Impressions: Hypertensive emergency Uncontrolled diabetes mellitus Qualified Codes: E13.65 - Other specified diabetes mellitus with hyperglycemia Disposition: 09 ADMITTED INPATIENT Admit to: Med Surg Condition: Guarded Critical Care Note Critical Care Time?: Yes (90 min-critical care time only) Stability Stability form required: No Heart Score Heart Score: Heart Score Response (Comments) Value History Slightly Suspicious 0 EKG Normal 0 Age >65 2 Risk Factors >3 or Hx ASHD 2 Troponin Normal limit 0 Total 4 I personally scribed for CHATO CHRISTIANSON MD ([email or web address]) on 12/09/24 at 09:21. Electronically submitted by Sp Elizabeth ([email or web address]). I personally scribed for CHATO CHRISTIANSON MD ([email or web address]) on 12/09/24 at 10:11. Electronically submitted by Sp Elizabeth ([email or web address]). CHATO CHRISTIANSON MD Dec 09, 2024 09:21
--- NOTE | 2024-12-09 09:59 | DVH ---
EXAM: CT HEAD WITHOUT CONTRAST HISTORY: tia COMPARISON: CT HEAD WITHOUT CONTRAST on DOS: 08/03/23, HEAD WITHOUT CONTRAST on DOS: 04/12/21 TECHNIQUE: Axial images were obtained and reformatted in coronal and sagittal planes. All CT scans at this medical facility are performed using dose modulation techniques as appropriate t o a performed exam including the following: Automated exposure control was utilized; adjustment of th e MA and/or KV according to patient size; and use of iterative reconstruction technique. CT Dose: CTDI volume is 53 mGy. Dose-length product is 970 mGy*cm FINDINGS: Supratentorial Region: No evidence for large acute territorial ischemia. No intracranial hemorrhage is noted. Confluent white matter hypoattenuating foci are noted bilaterally, which typically reflect chronic microvascular ischemic changes. Posterior Fossa: No acute abnormality. Brainstem: Unremarkable. Sellar/Suprasellar Region: Unremarkable. Ventricles, Cisterns, Sulci: Age-appropriate. Orbits: Unremarkable. Paranasal Sinuses: Unremarkable. Mastoid Air Cells: Unremarkable. Vasculature: Intracranial arterial calcified plaque formation noted. Bones/Soft Tissues: No acute abnormality. Other: None. IMPRESSION: 1. No acute intracranial process. 2. Moderate chronic microvascular ischemic changes.
[2024-12-09 10:21] LABS: Chloride 107 mmol/L (98-107); Sodium 137 mmol/L (136-145)
[2024-12-09 10:22] LABS: Anion Gap 9 (5-15); Calcium 9.5 mg/dL (8.7-10.4); Carbon Dioxide 21 mmol/L (20-31)
[2024-12-09 10:27] LABS: BUN/Creatinine Ratio 7.5 (10.0-20.0); Blood Urea Nitrogen 12 mg/dL (9-23)
[2024-12-09 10:33] LABS: Glucose 297 mg/dL (74-106)
[2024-12-09 10:47] LABS: Basophils # (auto) 0 10 ^3/uL (0-0.2); Basophils % (auto) 0.8 % (0.0-2.0); Eosinophils # (auto) 0 10 ^3/uL (0-0.8); Hematocrit 39.6 % (41.0-53.0); Hemoglobin 12.8 g/dL (13.5-17.5); Lymphocytes # (auto) 1.5 10 ^3/uL (0.4-5.4); Lymphocytes % (auto) 38.2 % (10.0-50.0); Mean Corpuscular Hemoglobin 27.6 pg (28.0-32.0); Mean Corpuscular Hgb Conc. 32.3 g/dL (32.0-36.0); Mean Corpuscular Volume 85.3 fL (80.0-100.0); Monocytes # (auto) 0.3 10 ^3/uL (0-1.3); Monocytes % (auto) 8.4 % (0.0-12.0); Neutrophils # (auto) 2.1 10 ^3/uL (1.6-8.6); Neutrophils % (auto) 51.6 % (37.0-80.0); Nucleated Red Blood Cells % 0.1 %; Platelet Count (auto) 207 10^3/uL (140-450); Red Blood Cells 4.64 10^6/uL (4.5-5.90); Red Cell Distribution Width 17.6 % (11.8-14.3)
[2024-12-09] MEDS ORDERED: MORPHINE SULFATE INJ 2 MG/ml SYRG IV PRN ×2 (11:00)
[2024-12-09] MEDS ORDERED: DEXTROSE (50%) 50ML SYRG IV PRN (11:00)
[2024-12-09] MEDS ORDERED: TEMAZEPAM 15 MG CAP PO PRN (11:00)
[2024-12-09] MEDS ORDERED: NITROGLYCERIN 0.4 MG SL TAB SL PRN (11:00)
--- NOTE | 2024-12-09 11:04 | DVHHP2 ---
Admitting Diagnosis: bilateral lower extremity weakness History of Present Illness Patient is a 69 year old male presenting to the ED with a chief complaint of bilateral lower extremity weakness. Patient states that he is unable to walk on his own x 1 day because of the weakness. Patient reports also having a headache. Patient states that he previously had a stroke last August with left-sided deficits. Patient was still able to walk on his own with the aid of a cane. Patient denies any SOB, dizziness, slurred speech, or numbness. While in the emergency department the patient was evaluated by the provider, Labs, vital signs, and imagining monitored. Patient will be admitted for further evaluation and treatment. I discussed admission with the patient/family and is in agreement to treatment plan. Patient Family History: Cardiovascular disease G8 BROTHER Cerebrovascular accident (CVA) G8 MOTHER FH: heart failure G8 FATHER Hypertension G8 MOTHER Allergies: Coded Allergies: NO KNOWN ALLERGIES (Unverified , 06/03/16) Home Meds Active Scripts Sucralfate (CARAFATE) 1 Gm Tab, 1 GM OR QIDACHS for 30 Days, #120 TAB Prov:VITOR SCHULTZ NP 09/08/24 Pantoprazole Sodium Sesquihydr (Protonix) 40 Mg Tab, 40 MG PO DAILY, #30 TAB Prov:VITOR SCHULTZ NP 09/08/24 Clonidine Hydrochloride (Clonidine Hcl) 0.2 Mg Tab, 1 TAB PO BID, #60 TAB 5 Refills Prov:VITOR SCHULTZ NP 09/08/24 Atorvastatin Calcium (ATORVASTATIN CALCIUM) 80 Mg Tab, 1 TAB PO DAILY, #30 TAB 5 Refills Prov:VITOR SCHULTZ NP 09/08/24 Reported Medications Dapagliflozin Propanediol (Farxiga) 10 Mg Tab, 1 TAB PO DAILY 09/03/24 Metformin Hydrochloride (Metformin Hcl) 850 Mg Tab, 1 TAB PO BID 09/30/22 Benazepril Hcl (Benazepril Hcl) 40 Mg Tab, 1 TAB PO DAILY 09/30/22 Amlodipine Besylate (Amlodipine Besylate) 10 Mg Tab, 1 TAB PO DAILY 09/30/22 Current Medications Current Medications Medications (Trade) Dose Ordered Sig/Abilio Route PRN Reason Start Time Stop Time Status Last Admin Sodium Chloride 1,000 ml @ 60 mls/hr [id number] IV 12/09/24 11:00 12/09/24 18:56 Acetaminophen/ Hydrocodone Bitart (Sidon 5/325MG Tab) 1 tab Q4HP PRN PO MODERATE PAIN (4-6 PAIN SCALE) 12/09/24 11:00 12/09/24 15:17 Temazepam (Restoril) 15 mg QHSP PRN PO FOR INSOMNIA 12/09/24 11:00 Ondansetron HCl (Zofran) 4 mg Q4HP PRN IV NAUSEA / VOMITING 12/09/24 11:00 Docusate Sodium (Colace Capsule) 100 mg BIDPRN PRN PO FOR CONSTIPATION 12/09/24 11:00 Enoxaparin Sodium (Lovenox) 40 mg DAILY SC 12/10/24 10:00 Acetaminophen (Tylenol Tablet) 650 mg Q6HP PRN PO PAIN SCALE 1-3 OR TEMP>100.4 12/09/24 11:00 Morphine Sulfate 2 mg Q4HPRN PRN IV SEVERE PAIN (7-10 PAIN SCALE) 12/09/24 11:00 Nitroglycerin (Ntrostat Sublingual) 0.4 mg Q5MINP PRN SL FOR CHEST PAIN 12/09/24 11:00 Morphine Sulfate 2 mg Q30M PRN IV FOR CHEST PAIN 12/09/24 11:00 Diagnostic Test (Pha) (Accu-Chek Comfort Curve T) 1 strip ACHS 12/09/24 11:30 12/09/24 18:57 Insulin Human Regular (InsuLIN R) ACHS SC 12/09/24 11:30 12/09/24 19:01 Dextrose 50 ml UD PRN IV Blood Sugar LESS THAN 60 12/09/24 11:00 Hydralazine HCl (Apresoline Injection) 10 mg Q6HP PRN IV SBP>170 12/09/24 13:00 12/09/24 18:55 Atorvastatin Calcium (Lipitor) 80 mg HS PO 12/09/24 22:00 Aspirin 81 mg DAILY PO 12/09/24 13:15 12/09/24 18:54 Review of Systems Constitutional: denies chills, denies fever, denies malaise Eyes: denies eye pain, denies vision change ENT: denies ear pain, denies nasal congestion, denies painful swallowing, denies voice change Cardiovascular: denies chest pain, denies edema, denies orthopnea, denies palpitations, denies paroxysmal nocturnal dyspnea Respiratory: denies cough, denies shortness of breath Gastrointestinal: denies constipation, denies diarrhea, denies nausea, denies vomiting Genitourinary: denies dysuria, denies frequent urination, denies urethral discharge Musculoskeletal: denies back pain, denies joint pain, denies muscle pain Skin: denies bruising, denies itching, denies rash Neurological: denies sensory changes Psychiatric: denies anxiety, denies depression Endocrine: denies polydipsia, denies polyuria Hematologic/Lymphatic: denies easy bleeding, denies easy bruising, denies enlarged lymph nodes Allergic/Immunologic: denies allergy, denies hives Vital Signs Vital Signs Date Time Temp Pulse Resp B/P (MAP) Pulse Ox O2 Delivery O2 Flow Rate FiO2 12/09/24 18:55 78 16 182/115 (137) 98 12/09/24 13:21 98.3 98.3 Physical Exam General Appearance: alert, no distress HEENT: EOMI, PERRLA, normal external inspect of ears, no icterus, no nasal drainage Neck: no carotid bruit, no jugular venous distention (JVD), no lymphadenopathy Chest: normal thorax Respiratory: clear to auscultation, normal air movement Cardiovascular: no diastolic murmur, no jugular venous distention (JVD), no rub, no systolic murmur Abdominal: soft, no hepatomegaly, no mass, no splenomegaly, no tenderness Genitourinary: grossly normal external Musculoskeletal: no joint tenderness, no swelling Extremities: normal pulses, no calf tenderness, no clubbing, no cyanosis, no edema Skin: no bruising, no jaundice, no rash Neurological: alert Results Labs Test 12/09/24 18:36 12/09/24 13:19 12/09/24 10:28 12/09/24 09:28 Range/Units Urine Color Light-orange Yellow Urine Clarity Turbid H Clear Urine pH 6.5 5.0-9.0 Urine Specific [place] 1.019 1.001-1.035 Urine Protein 3+ H Negative Urine Ketones Negative Negative Urine Blood 1+ H Negative /uL Urine Nitrite Negative Negative Urine Bilirubin Negative Negative Urine Urobilinogen Normal Negative mg/dL Urine Leukocyte Esterase 3+ Negative /uL Urine RBC 5 0 - 3 /hpf Urine WBC Clumps Present None Seen /hpf Urine Microscopic WBC 314 H 0-3 /HPF Urine Squamous Epithelial Cells Few <5 /hpf Urine Bacteria None seen None Seen /hpf Urine Glucose 3+ H Normal mg/dL POC Glucose 211 H 70-106 mg/dl White Blood Count 4.0 L 4.4-10.8 10^3/uL Red Blood Count 4.64 4.5-5.90 10^6/uL Hemoglobin 12.8 L 13.5-17.5 g/dL Hematocrit 39.6 L 41.0-53.0 % Mean Corpuscular Volume 85.3 80.0-100.0 fL Mean Corpuscular Hemoglobin 27.6 L 28.0-32.0 pg Mean Corpuscular Hemoglobin Concent 32.3 32.0-36.0 g/dL Red Cell Distribution Width 17.6 H 11.8-14.3 % Platelet Count 207 140-450 10^3/uL Mean Platelet Volume 8.8 6.9-10.8 fL Neutrophils (%) (Auto) 51.6 37.0-80.0 % Lymphocytes (%) (Auto) 38.2 10.0-50.0 % Monocytes (%) (Auto) 8.4 0.0-12.0 % Eosinophils (%) (Auto) 1.0 0.0-7.0 % Basophils (%) (Auto) 0.8 0.0-2.0 % Neutrophils # (Auto) 2.1 1.6-8.6 10 ^3/uL Lymphocytes # (Auto) 1.5 0.4-5.4 10 ^3/uL Monocytes # (Auto) 0.3 0-1.3 10 ^3/uL Eosinophils # (Auto) 0 0-0.8 10 ^3/uL Basophils # (Auto) 0 0-0.2 10 ^3/uL Nucleated Red Blood Cells 0.1 % Hemoglobin A1c 7.6 H <5.7 % A1C Sodium Level 137 136-145 mmol/L Potassium Level 5.0 3.5-5.1 mmol/L Chloride Level 107 98-107 mmol/L Carbon Dioxide Level 21 20-31 mmol/L Anion Gap 9 5-15 Blood Urea Nitrogen 12 9-23 mg/dL Creatinine 1.61 H 0.700-1.30 mg/dL Glomerular Filtration Rate Calc 46 >90 mL/min BUN/Creatinine Ratio 7.5 L 10.0-20.0 Serum Glucose 297 H 74-106 mg/dL Calcium Level 9.5 8.7-10.4 mg/dL Troponin I High Sensitivity 3 L </=54 ng/L Triglycerides Level 172 H < 150 mg/dL Cholesterol Level 277 H < 200 mg/dL LDL Cholesterol 203 H < 100 mg/dL HDL Cholesterol 46 40-59 mg/dL Admitting Diagnosis: 1. Hypertensive urgency Cardiology conult 2. Bilateral lower extremity weakness Medication, monitoring 3. Obesity Diet education, monitor 4. DM II w/ hyperglycemia Insulin Sliding Scale 5. HLD Medication, monitoring 6. GERD Medication, monitoring 7. CVA with residual defects Neurology consult 8. CKD 3D Medication, monitoring 9. Acute CVA MRI of Brain Plan discussed with: Patient, Other VITOR SCHULTZ NP Dec 09, 2024 11:04
--- NOTE | 2024-12-09 13:14 | DVH ---
PROCEDURE: MRI MRA ANGIO HEAD BRAIN INDICATION: CVA Exam Date: 12/09/2024 11:57 AM COMPARISON: None TECHNIQUE: MRA head without and with intravenous contrast. MRA neck without and with intravenous contrast. 3D image postprocessing was performed on a dedicated workstation and images were used for interpretat ion and reporting. FINDINGS: MRA head: Poor flow is seen in distal petrous, lacerum and proximal cavernous segments of the left internal car otid artery. Short-segment occlusion of distal M2 segment of the left MCA proximal to bifurcation not ed. Short-segment moderate narrowing of the proximal A2 segment of the left GILMA. Short-segment occlus ion of A3 segment of the right GILMA. There is moderate stenosis of the proximal basilar artery. The b ilateral intracranial vertebral arteries are patent . No aneurysm is identified. MRA neck: The bilateral common carotid and cervical internal carotid arteries are patent. The left vertebral ar jocelyn is patent. The right vertebral artery is hypoplastic with Short-segment foci of high-grade sten osis and occlusion in distal artery. IMPRESSION: 1. High-grade stenosis in the left intracranial ICA. 2. Short-segment occlusion of distal M2 segment of the left MCA. 3. Short-segment moderate stenosis of the proximal A2 segment of the left GILMA. 4. Short-segment occlusion of A3 segment of the right GILMA. 5. Moderate stenosis of the proximal basilar artery. 6. Hypoplastic right vertebral artery short-segment foci of high-grade stenosis and occlusion of the V3 segment. Critical Result: Large vessel occlusion Findings discussed with CHATO CHRISTIANSON at 12/09/2024 01:00 PM, and acknowledged receipt and under standing of the findings. ..
--- NOTE | 2024-12-09 13:15 | DVH ---
EXAM: MRI BRAIN HEAD WO CONTRAST HISTORY: r/o cva COMPARISON: CT brain without IV contrast dated 12/09/2024, MRI BRAIN HEAD WO CONTRAST on DOS: 4, MRI BRAIN HEAD WO CONTRAST on DOS: 08/03/23 TECHNIQUE: MRI was performed utilizing multiple appropriate imaging planes and pulse sequences. FINDINGS: SUPRATENTORIAL REGION: Small foci of restricted diffusion noted in peripheral aspect of the right th alamus and left parietal cortex reflecting acute ischemia. No intracranial hemorrhage. Scattered ill- defined FLAIR hyperintensities are noted within the bilateral periventricular region, prasda radiata and subcortical white matter. POSTERIOR FOSSA: Unremarkable. BRAINSTEM: Unremarkable. SELLAR/SUPRASELLAR REGION: Unremarkable. VENTRICLES, CISTERNS, SULCI: Age-appropriate. ORBITS: Unremarkable. PARANASAL SINUSES: Unremarkable. MASTOID AIR CELLS: Unremarkable. VASCULATURE: Unremarkable. BONES/ SOFT TISSUES: Unremarkable. OTHER: None. IMPRESSION: 1. Small foci of acute ischemia in the right thalamus and left parietal cortex. No intracranial hemo rrhage. 2. Extensive chronic microvascular ischemic changes, advanced for patient's age. Critical Result: Stroke Alert Findings discussed with CHATO CHRISTIANSON at 12/09/2024 01:00 PM, and acknowledged receipt and under standing of the findings. ..
[2024-12-09 13:21] VITALS: PULSE 67; RESP 16; O2SAT 95
[2024-12-09] MEDS: ACCU-CHEK COMFORT CURVE STRIP VI SCH (13:21)
[2024-12-09] MEDS: InsuLIN REG 1unit/0.01ml Soln (100units/ml) SC SCH (13:24)
[2024-12-09] MEDS: HYDROcodone-ACET 5/325MG TAB PO PRN (15:17)
[2024-12-09 15:47] LABS: HDL Cholesterol 46 mg/dL (40-59)
[2024-12-09 15:51] LABS: Cholesterol 277 mg/dL (< 200); LDL Cholesterol 203 mg/dL (< 100); Triglycerides 172 mg/dL (< 150)
[2024-12-09 18:38] LABS: Urine Bacteria None Seen /hpf (None Seen)
[2024-12-09] MEDS: ASPirin 81 mg TAB PO SCH (18:54)
[2024-12-09] MEDS: hydrALAZINE HCL 20 MG/ML VL IV PRN (18:55)
[2024-12-09] MEDS: SODIUM CHLORIDE 0.9% 1,000 ML IV SCH (18:56)
--- NOTE | 2024-12-09 19:04 | DVHINCON2 ---
Date of service: Dec 09, 2024 History of Present Illness HPI Patient is a 69-year-old gentleman who presented to the hospital for worsening bilateral lower extremity weakness and swelling. He did have some headaches. He mentions that he has not been able to walk for the past 2 days. It is of note that the patient did have a CVA back in August 2024. Since that time he was able to walk with cane but for the past 2 days he is unable to. Cardiology was involved for cardiac aspects of care. He denies chest pains. He denies shortness of breath. He denies loss of consciousness. He denies dizziness. Home Meds Active Scripts Sucralfate (CARAFATE) 1 Gm Tab, 1 GM OR QIDACHS for 30 Days, #120 TAB Prov:VITOR SCHULTZ NP 09/08/24 Pantoprazole Sodium Sesquihydr (Protonix) 40 Mg Tab, 40 MG PO DAILY, #30 TAB Prov:VITOR SCHULTZ NP 09/08/24 Clonidine Hydrochloride (Clonidine Hcl) 0.2 Mg Tab, 1 TAB PO BID, #60 TAB 5 Refills Prov:VITOR SCHULTZ NP 09/08/24 Atorvastatin Calcium (ATORVASTATIN CALCIUM) 80 Mg Tab, 1 TAB PO DAILY, #30 TAB 5 Refills Prov:VITOR SCHULTZ NP 09/08/24 Reported Medications Dapagliflozin Propanediol (Farxiga) 10 Mg Tab, 1 TAB PO DAILY 09/03/24 Metformin Hydrochloride (Metformin Hcl) 850 Mg Tab, 1 TAB PO BID 09/30/22 Benazepril Hcl (Benazepril Hcl) 40 Mg Tab, 1 TAB PO DAILY 09/30/22 Amlodipine Besylate (Amlodipine Besylate) 10 Mg Tab, 1 TAB PO DAILY 09/30/22 Past Medical History Others Past medical history includes hypertension, diabetes mellitus, morbid obesity, history of CVA, CKD, old history of GI bleeding anemia, GERD, hyperlipidemia, hiatal hernia and a Holter history of hepatitis-C. Does have history of smoking. Denies alcohol and drug abuse. Family history is positive for hypertension/CVA and heart murmur Patient Family History: Cardiovascular disease G8 BROTHER Cerebrovascular accident (CVA) G8 MOTHER FH: heart failure G8 FATHER Hypertension G8 MOTHER Smoker: Positive Review of Systems Constitutional: No symptom reported Cardiovascular: No symptom reported All Other Systems 14 point review of system was performed. Relevant findings as per above and as per HPI. Otherwise negative for H&P Exam Vital Signs Vital Signs Date Time Temp Pulse Resp B/P (MAP) Pulse Ox O2 Delivery O2 Flow Rate FiO2 12/09/24 13:21 98.3 67 16 176/108 (130) 95 98.3 General Appeara: Well developed, Obese Eye Exam: bilateral eye PERRL Nasal Exam: Normal inspection Mouth: Normal Inspection Pulmonary/Respiratory: Rhonci Cardiovascular/Chest: Normal inspection, Regular rate, Systolic murmur Peripheral Pulses: 2+ carotid (R), 2+ carotid (L), 2+ femoral (R), 2+ femoral (L), 2+ dorsalis pedis (R), 2+ dorsalis pedis (L), 2+ Radial (R) Abdominal Exam: Normal bowel sounds Neuro/Mental St: Alert, Oriented Appearance: Appropriate appearance Eye contact/ Speech: Cooperative Labs/Xrays Labs Test 12/09/24 18:36 12/09/24 13:19 12/09/24 10:28 12/09/24 09:28 Range/Units POC Glucose 211 H 70-106 mg/dl White Blood Count 4.0 L 4.4-10.8 10^3/uL Red Blood Count 4.64 4.5-5.90 10^6/uL Hemoglobin 12.8 L 13.5-17.5 g/dL Hematocrit 39.6 L 41.0-53.0 % Mean Corpuscular Volume 85.3 80.0-100.0 fL Mean Corpuscular Hemoglobin 27.6 L 28.0-32.0 pg Mean Corpuscular Hemoglobin Concent 32.3 32.0-36.0 g/dL Red Cell Distribution Width 17.6 H 11.8-14.3 % Platelet Count 207 140-450 10^3/uL Mean Platelet Volume 8.8 6.9-10.8 fL Neutrophils (%) (Auto) 51.6 37.0-80.0 % Lymphocytes (%) (Auto) 38.2 10.0-50.0 % Monocytes (%) (Auto) 8.4 0.0-12.0 % Eosinophils (%) (Auto) 1.0 0.0-7.0 % Basophils (%) (Auto) 0.8 0.0-2.0 % Neutrophils # (Auto) 2.1 1.6-8.6 10 ^3/uL Lymphocytes # (Auto) 1.5 0.4-5.4 10 ^3/uL Monocytes # (Auto) 0.3 0-1.3 10 ^3/uL Eosinophils # (Auto) 0 0-0.8 10 ^3/uL Basophils # (Auto) 0 0-0.2 10 ^3/uL Nucleated Red Blood Cells 0.1 % Hemoglobin A1c 7.6 H <5.7 % A1C Sodium Level 137 136-145 mmol/L Potassium Level 5.0 3.5-5.1 mmol/L Chloride Level 107 98-107 mmol/L Carbon Dioxide Level 21 20-31 mmol/L Anion Gap 9 5-15 Blood Urea Nitrogen 12 9-23 mg/dL Creatinine 1.61 H 0.700-1.30 mg/dL Glomerular Filtration Rate Calc 46 >90 mL/min BUN/Creatinine Ratio 7.5 L 10.0-20.0 Serum Glucose 297 H 74-106 mg/dL Calcium Level 9.5 8.7-10.4 mg/dL Troponin I High Sensitivity 3 L </=54 ng/L Triglycerides Level 172 H < 150 mg/dL Cholesterol Level 277 H < 200 mg/dL LDL Cholesterol 203 H < 100 mg/dL HDL Cholesterol 46 40-59 mg/dL Assessment/Plan Plan Patient is a 69-year-old gentleman who presented to the hospital for worsening bilateral lower extremity weakness and swelling. He did have some headaches. He mentions that he has not been able to walk for the past 2 days. It is of note that the patient did have a CVA back in August 2024. Since that time he was able to walk with cane but for the past 2 days he is unable to. Cardiology was involved for cardiac aspects of care. He denies chest pains. He denies shortness of breath. He denies loss of consciousness. He denies dizziness. Morbidly obese. Not in acute distress. Not using accessory muscles of breathing. No JVD. Speaks slowly. Mucosa is pink and wet. No goiter. No carotid bruit. Lungs are clear to auscultation. Cardiac: Regular, no thrill/gallop. Abdomen is soft. There is no gross mass. Bowel sound is positive. Dorsalis pedis is 2+ bilateral Past medical history includes hypertension, diabetes mellitus, morbid obesity, history of CVA, CKD, old history of GI bleeding anemia, GERD, hyperlipidemia, hiatal hernia and old history of hepatitis-C. Does have history of smoking. Denies alcohol and drug abuse. Family history is positive for hypertension/CVA and heart murmur Echocardiogram of August 03, 2023 had reported mild concentric left ventricular hypertrophy, aortic sclerosis, ejection fraction of 65-70% and no vegetation Echocardiogram of August 2024 revealed ejection fraction of 60-65% Creatinine: 1.61 Potassium: 5.0 Troponin (high sensitive): 3 LDL: 203 CT of the head reported: IMPRESSION: 1. No acute intracranial process. 2. Moderate chronic microvascular ischemic changes. MRI of the brain revealed: IMPRESSION: 1. Small foci of acute ischemia in the right thalamus and left parietal cortex. No intracranial hemorrhage. 2. Extensive chronic microvascular ischemic changes, advanced for patient's age. MRI/MRA of the brain reported: IMPRESSION: 1. High-grade stenosis in the left intracranial ICA. 2. Short-segment occlusion of distal M2 segment of the left MCA. 3. Short-segment moderate stenosis of the proximal A2 segment of the left GILMA. 4. Short-segment occlusion of A3 segment of the right GILMA. 5. Moderate stenosis of the proximal basilar artery. 6. Hypoplastic right vertebral artery short-segment foci of high-grade stenosis and occlusion of the V3 segment. Critical Result: Large vessel occlusion EKG reveals sinus rhythm with no specific ST-T changes. Tele reveals sinus rhythm Patient is a 69-year-old gentleman who presented with lower extremity weakness. Imaging/CT/MRI has revealed CVA. Acute coronary syndrome is not considered at this point. Cardiac etiology for presentation is less likely. CVA, acute Morbid obesity Diabetes mellitus Hypertension Hiatal hernia GI bleeding, history of CKD Cardiac suggestion for management: Manage on telemetry Follow-up electrolytes and kidney function tests and correct abnormalities Aspirin daily High potency statin Request for chest x-ray Request for echocardiogram Neurology evaluation Thank you for consultation Further evaluation and management depends on the above and clinical course A total of 75 minutes was spent reviewing the patient record, examining the pa tient, making a diagnostic and therapeutic plan, discussing this plan with medical personnel, following up on diagnostic studies and following the patient for clinical stability excluding any and all procedures. At least 50% of this time was spent in direct, [id number] contact. Thank you for allowing me to participate in this patient's care. Further recommendations will depend on patient's clinical course. Please do not hesitate to contact me if you have any questions or concerns. This medical document was created using electronic medical record system with [id number] computerized dictation system. Although this document has been carefully reviewed, there may still be some phonetic and typographical errors. These areas are purely typographical due to the imperfection of the software programs, and do not reflect any compromise in the patient's medical care. Plan discussed with: Patient, Other (nurse) NEVAEH FALCON MD Dec 09, 2024 19:04
[2024-12-09 19:23] LABS: Urine Blood 1+ /uL (Negative); Urine Clarity Turbid (Clear); Urine Color Light-Orange (Yellow); Urine Protein, UAD 3+ (Negative); Urine Specific Gravity 1.019 (1.001-1.035); Urine Squamous Epithelial Cell FEW /hpf (<5); Urine Urobilinogen Normal (Negative); Urine WBC 314 /HPF (0-3); Urine WBC Clumps PRESENT /hpf (None Seen); Urine pH 6.5 (5.0-9.0)
--- NOTE | 2024-12-09 20:23 | DVHINCON2 ---
Date of service: Dec 09, 2024 Referring Physician Vitor Reason for Consultation Rule out stroke History of Present Illness Mr. Goldsmith is a 69 years old right-handed gentleman with a history of hypertension, diabetes, dyslipidemia, he came to the [facility] on 12/09/2024 with a chief complaint of bilateral leg weakness. At that time, he is alert, fully oriented, he provided the following history I saw him on 08/20/23 for syncope, 09/03/24 for metabolic encephalopathy (MRI: acute strokes) On 12/11/2024, with a walking in his home, he collapsed because both leg weakness, and he found he could not move the left arm and leg, but he was had a lot of improvement today, and he is able to move the arms and legs with no problem On 09/01/2024, he had nausea, abdominal pain, and he vomited a lot of coffee- ground emesis, when he was standing up, he had dizziness/lightheadedness, follow up passing out and waking up on the floor, he reports passing out very briefly, and on waking up he was consciousness everything, but with general weakness, diffuse code sweating, MR brain scan showed evidence of strokes He claims that he was on aspirin and a cholesterol medication at home (our record: Atorvastatin 80 mg daily, I did not see antiplatelet/anticoagulant agent) He does not snore Urinalysis, 12/09/2024: WBC: 314, urine leukocyte esterase: 3+ WBC/HB/PLT/MCV, 12/09/2024: 4/12.8/207/85.3 HGB A1c, 07/2023: 6.1, 12/09/2024: 7.6 BUN/CR, 09/03/2024: 22/1.81, 12/09/2024: 12/1.62 TG/HDL/LDL/HDL, 12/09/2024: 172/277/203/46 Vitamin B12, 04/2024: 622 TSH, 04/2020 4:2.29 MRI head, 08/03/2023: No acute findings. Small vessel chronic ischemic changes MRI head, 09/04/2024: Few small foci of acute ischemia, suspect embolic infarcts. Clinical correlation and continued follow-up is recommended. Consider further evaluation with CTA or MRA of the head and neck MRI head, 12/09/2024: 1. Small foci of acute ischemia in the right thalamus and left parietal cortex. No intracranial hemorrhage. 2. Extensive chronic microvascular ischemic changes, advanced for patient's age. MRA brain, neck, 12/09/2024: 1. High-grade stenosis in the left intracranial ICA. 2. Short-segment occlusion of distal M2 segment of the left MCA. 3. Short- segment moderate stenosis of the proximal A2 segment of the left GILMA. 4. Short- segment occlusion of A3 segment of the right GILMA. 5. Moderate stenosis of the proximal basilar artery. 6. Hypoplastic right vertebral artery short-segment foci of high-grade stenosis and occlusion of the V3 segment Past Medical History Hypertension, diabetes, dyslipidemia, GI bleeding Past Surgical History No surgeries Family History: Cardiovascular disease G8 BROTHER Cerebrovascular accident (CVA) G8 MOTHER FH: heart failure G8 FATHER Hypertension G8 MOTHER Family History Hypertension, diabetes, heart disease, stroke Social History He was a tobacco smoker, but no history of alcohol recreational substance abuse Allergies: Coded Allergies: NO KNOWN ALLERGIES (Unverified , 06/03/16) Home Meds Active Scripts Sucralfate (CARAFATE) 1 Gm Tab, 1 GM OR QIDACHS for 30 Days, #120 TAB Prov:VITOR SCHULTZ NP 09/08/24 Pantoprazole Sodium Sesquihydr (Protonix) 40 Mg Tab, 40 MG PO DAILY, #30 TAB Prov:VITOR SCHULTZ NP 09/08/24 Clonidine Hydrochloride (Clonidine Hcl) 0.2 Mg Tab, 1 TAB PO BID, #60 TAB 5 Refills Prov:VITOR SCHULTZ NP 09/08/24 Atorvastatin Calcium (ATORVASTATIN CALCIUM) 80 Mg Tab, 1 TAB PO DAILY, #30 TAB 5 Refills Prov:VITOR SCHULTZ NP 09/08/24 Reported Medications Dapagliflozin Propanediol (Farxiga) 10 Mg Tab, 1 TAB PO DAILY 09/03/24 Metformin Hydrochloride (Metformin Hcl) 850 Mg Tab, 1 TAB PO BID 09/30/22 Benazepril Hcl (Benazepril Hcl) 40 Mg Tab, 1 TAB PO DAILY 09/30/22 Amlodipine Besylate (Amlodipine Besylate) 10 Mg Tab, 1 TAB PO DAILY 09/30/22 Current Medications Current Medications Medications (Trade) Dose Ordered Sig/Abilio Route PRN Reason Start Time Stop Time Status Last Admin Sodium Chloride 1,000 ml @ 60 mls/hr [id number] IV 12/09/24 11:00 12/09/24 18:56 Acetaminophen/ Hydrocodone Bitart ([place] 5/325MG Tab) 1 tab Q4HP PRN PO MODERATE PAIN (4-6 PAIN SCALE) 12/09/24 11:00 12/09/24 15:17 Temazepam (Restoril) 15 mg QHSP PRN PO FOR INSOMNIA 12/09/24 11:00 Ondansetron HCl (Zofran) 4 mg Q4HP PRN IV NAUSEA / VOMITING 12/09/24 11:00 Docusate Sodium (Colace Capsule) 100 mg BIDPRN PRN PO FOR CONSTIPATION 12/09/24 11:00 Enoxaparin Sodium (Lovenox) 40 mg DAILY SC 12/10/24 10:00 Acetaminophen (Tylenol Tablet) 650 mg Q6HP PRN PO PAIN SCALE 1-3 OR TEMP>100.4 12/09/24 11:00 Morphine Sulfate 2 mg Q4HPRN PRN IV SEVERE PAIN (7-10 PAIN SCALE) 12/09/24 11:00 Nitroglycerin (Ntrostat Sublingual) 0.4 mg Q5MINP PRN SL FOR CHEST PAIN 12/09/24 11:00 Morphine Sulfate 2 mg Q30M PRN IV FOR CHEST PAIN 12/09/24 11:00 Diagnostic Test (Pha) (Accu-Chek Comfort Curve T) 1 strip ACHS 12/09/24 11:30 12/09/24 18:57 Insulin Human Regular (InsuLIN R) ACHS SC 12/09/24 11:30 12/09/24 19:01 Dextrose 50 ml UD PRN IV Blood Sugar LESS THAN 60 12/09/24 11:00 Hydralazine HCl (Apresoline Injection) 10 mg Q6HP PRN IV SBP>170 12/09/24 13:00 12/09/24 18:55 Atorvastatin Calcium (Lipitor) 80 mg HS PO 12/09/24 22:00 Aspirin 81 mg DAILY PO 12/09/24 13:15 12/09/24 18:54 Review of Systems As above, the other systems are negative Vital Signs Vital Signs Date Time Temp Pulse Resp B/P (MAP) Pulse Ox O2 Delivery O2 Flow Rate FiO2 12/09/24 18:55 78 16 182/115 (137) 98 12/09/24 13:21 98.3 98.3 Physical Exam GENERAL EXAM: General: the patient is well developed and nourished. No acute distress. HEENT: Normocephalic, neck is supple, no carotid bruits. No mass RESPIRATORY: Normal respiratory effort with symmetrical lung expansion. Lungs clear to auscultation. CARDIOVASCULAR: Regular rate and rhythm with no murmurs. S1, S2. ABDOMEN: Soft, nontender, normal bowel sound NEUROLOGICAL: MENTAL STATUS: Awake and alert. Oriented to person, place, time and general circumstances. Able to give personal history SPEECH, LANGUAGE, HIGHER CORTICAL FUNCTION: no aphasia or dysathria. CRANIAL NERVES: #2: Intact visual godfrey to confrontation. The optic discs were sharp #3,4,6: Pupils are equal, round and reactive. EOMs full and conjugate. No nystag mus. #5: Facial sensation intact in all three divisions bilaterally. Mandibular strength intact. #7: Facial muscles symmetrical and strength intact. #8: Hearing grossly normal to voice. #9,10: Uvula and soft palate rise in the midline. Swallow and voice are normal. #11: Trapezius and sternomastoid strength intact bilaterally. #12: Tongue midline. No fasciculations or atrophy. SENSATION: Sensation to touch and pinprick is normal. MOTOR: Normal tone in the upper and lower extremity. Normal muscle bulk. No fasciculations. No abnormal movements or posturing. Muscle strength of the major groups in the upper extremities is 5/5. Muscle strength of the major groups in the extremities is right: 5/5, left 4/5. REFLEXES: Deep tendon reflexes are symmetrical. No pathological reflexes. CEREBELLAR/COORDINATION: Finger to nose is normal bilaterally. GAIT/STATION: deferred Labs/Diagnostic Data Labs Test 12/09/24 18:36 12/09/24 13:19 12/09/24 10:28 12/09/24 09:28 Range/Units Urine Color Light-orange Yellow Urine Clarity Turbid H Clear Urine pH 6.5 5.0-9.0 Urine Specific [place] 1.019 1.001-1.035 Urine Protein 3+ H Negative Urine Ketones Negative Negative Urine Blood 1+ H Negative /uL Urine Nitrite Negative Negative Urine Bilirubin Negative Negative Urine Urobilinogen Normal Negative mg/dL Urine Leukocyte Esterase 3+ Negative /uL Urine RBC 5 0 - 3 /hpf Urine WBC Clumps Present None Seen /hpf Urine Microscopic WBC 314 H 0-3 /HPF Urine Squamous Epithelial Cells Few <5 /hpf Urine Bacteria None seen None Seen /hpf Urine Glucose 3+ H Normal mg/dL POC Glucose 211 H 70-106 mg/dl White Blood Count 4.0 L 4.4-10.8 10^3/uL Red Blood Count 4.64 4.5-5.90 10^6/uL Hemoglobin 12.8 L 13.5-17.5 g/dL Hematocrit 39.6 L 41.0-53.0 % Mean Corpuscular Volume 85.3 80.0-100.0 fL Mean Corpuscular Hemoglobin 27.6 L 28.0-32.0 pg Mean Corpuscular Hemoglobin Concent 32.3 32.0-36.0 g/dL Red Cell Distribution Width 17.6 H 11.8-14.3 % Platelet Count 207 140-450 10^3/uL Mean Platelet Volume 8.8 6.9-10.8 fL Neutrophils (%) (Auto) 51.6 37.0-80.0 % Lymphocytes (%) (Auto) 38.2 10.0-50.0 % Monocytes (%) (Auto) 8.4 0.0-12.0 % Eosinophils (%) (Auto) 1.0 0.0-7.0 % Basophils (%) (Auto) 0.8 0.0-2.0 % Neutrophils # (Auto) 2.1 1.6-8.6 10 ^3/uL Lymphocytes # (Auto) 1.5 0.4-5.4 10 ^3/uL Monocytes # (Auto) 0.3 0-1.3 10 ^3/uL Eosinophils # (Auto) 0 0-0.8 10 ^3/uL Basophils # (Auto) 0 0-0.2 10 ^3/uL Nucleated Red Blood Cells 0.1 % Hemoglobin A1c 7.6 H <5.7 % A1C Sodium Level 137 136-145 mmol/L Potassium Level 5.0 3.5-5.1 mmol/L Chloride Level 107 98-107 mmol/L Carbon Dioxide Level 21 20-31 mmol/L Anion Gap 9 5-15 Blood Urea Nitrogen 12 9-23 mg/dL Creatinine 1.61 H 0.700-1.30 mg/dL Glomerular Filtration Rate Calc 46 >90 mL/min BUN/Creatinine Ratio 7.5 L 10.0-20.0 Serum Glucose 297 H 74-106 mg/dL Calcium Level 9.5 8.7-10.4 mg/dL Troponin I High Sensitivity 3 L </=54 ng/L Triglycerides Level 172 H < 150 mg/dL Cholesterol Level 277 H < 200 mg/dL LDL Cholesterol 203 H < 100 mg/dL HDL Cholesterol 46 40-59 mg/dL Assessment Acute strokes Chronic stroke History of GI bleeding with syncope Plan/Recommendation Monitoring Supportive treatment Telemetry CLAUDY MRI brain scan Syncope precautions discussed GI consultation Re: History GI bleeding with syncope, clearance for antiplatelet agent Prognosis: Poor This medical document was created using an electronic medical record system with [employer] dictation system. Although this document has been carefully reviewed, there may still be some phonetic and typographical errors. These areas are purely typographical due to imperfections of the software programs, and do not reflect any compromise in the patient's medical care. Plan discussed with: Patient, Other GRACIE UMAÑA MD Dec 09, 2024 20:23
[2024-12-10] VITALS (7 sets, daily range): BP systolic 167–188; BP diastolic 88–104; PULSE 69–120; RESP 18–21; TEMP 98.7–99.8; O2SAT 94–98
[2024-12-10] MEDS: ATORVASTATIN 20 MG TAB PO SCH (01:31)
[2024-12-10 02:54] LABS: Basophils # (auto) 0 10 ^3/uL (0-0.2); Basophils % (auto) 0.5 % (0.0-2.0); Eosinophils # (auto) 0 10 ^3/uL (0-0.8); Eosinophils % (auto) 0.6 % (0.0-7.0); Hemoglobin 13.2 g/dL (13.5-17.5); Lymphocytes # (auto) 2.5 10 ^3/uL (0.4-5.4); Lymphocytes % (auto) 33.8 % (10.0-50.0); Mean Corpuscular Hemoglobin 27.7 pg (28.0-32.0); Mean Corpuscular Hgb Conc. 32.3 g/dL (32.0-36.0); Mean Corpuscular Volume 85.6 fL (80.0-100.0); Monocytes # (auto) 0.6 10 ^3/uL (0-1.3); Monocytes % (auto) 8.5 % (0.0-12.0); Neutrophils # (auto) 4.1 10 ^3/uL (1.6-8.6); Neutrophils % (auto) 56.6 % (37.0-80.0); Nucleated Red Blood Cells % 0.1 %; Platelet Count (auto) 235 10^3/uL (140-450); Red Blood Cells 4.78 10^6/uL (4.5-5.90); Red Cell Distribution Width 17.7 % (11.8-14.3); White Blood Cell 7.3 10^3/uL (4.4-10.8)
[2024-12-10 03:08] LABS: Alanine Aminotransferase 15 U/L (7-40); Albumin 4.2 g/dL (3.2-4.8); Alkaline Phosphatase 85 U/L (46-116); Anion Gap 11 (5-15); Aspartate Aminotransferase 18 U/L (13-40); BUN/Creatinine Ratio 9.1 (10.0-20.0); Bilirubin, Total 0.4 mg/dL (0.2-1.0); Blood Urea Nitrogen 16 mg/dL (9-23); Calcium 9.6 mg/dL (8.7-10.4); Carbon Dioxide 23 mmol/L (20-31); Chloride 102 mmol/L (98-107); Potassium 4.2 mmol/L (3.5-5.1); Total Protein 7.2 g/dL (5.7-8.2)
[2024-12-10 03:16] LABS: Glucose 248 mg/dL (74-106); Sodium 136 mmol/L (136-145)
--- NOTE | 2024-12-10 06:17 | DVHPN2 ---
Progress Note - Dictate Date Seen: Dec 10, 2024 Medical Necessity Reason Pt with a Central, PICC or Fol: No vital signs Vital Sign Date Time Temp Pulse Resp B/P (MAP) Pulse Ox O2 Delivery O2 Flow Rate FiO2 12/10/24 02:32 184/110 12/10/24 01:42 98.3 124 16 94 98.3 12/09/24 13:21 Room Air* 0 21 medications Current Medications Medications Dose Ordered Sig/Abilio Route Start Time Stop Time Status Last Admin Dose Admin Sodium Chloride 1,000 ml @ 60 mls/hr [id number] IV 12/09/24 11:00 12/09/24 18:56 60 MLS/HR Acetaminophen/ Hydrocodone Bitart 1 tab Q4HP PRN PO 12/09/24 11:00 12/09/24 21:12 1 TAB Temazepam 15 mg QHSP PRN PO 12/09/24 11:00 Ondansetron HCl 4 mg Q4HP PRN IV 12/09/24 11:00 Docusate Sodium 100 mg BIDPRN PRN PO 12/09/24 11:00 Enoxaparin Sodium 40 mg DAILY SC 12/10/24 10:00 Acetaminophen 650 mg Q6HP PRN PO 12/09/24 11:00 Morphine Sulfate 2 mg Q4HPRN PRN IV 12/09/24 11:00 Nitroglycerin 0.4 mg Q5MINP PRN SL 12/09/24 11:00 Morphine Sulfate 2 mg Q30M PRN IV 12/09/24 11:00 Diagnostic Test (Pha) 1 strip ACHS 12/09/24 11:30 12/10/24 01:31 1 STRIP Insulin Human Regular ACHS SC 12/09/24 11:30 12/10/24 01:35 4 UNITS Dextrose 50 ml UD PRN IV 12/09/24 11:00 Hydralazine HCl 10 mg Q6HP PRN IV 12/09/24 13:00 12/10/24 02:32 10 MG Atorvastatin Calcium 80 mg HS PO 12/09/24 22:00 12/10/24 01:31 80 MG Aspirin 81 mg DAILY PO 12/09/24 13:15 12/09/24 18:54 81 MG laboratory and microbiology Laboratory Tests 12/10/24 02:30 Test 12/10/24 02:30 Range/Units Serum Glucose 248 H 74-106 mg/dL Assessment/Plan Patient is a 69-year-old gentleman who presented to the hospital for worsening bilateral lower extremity weakness and swelling. He did have some headaches. He mentions that he has not been able to walk for the past 2 days. It is of note that the patient did have a CVA back in August 2024. Since that time he was able to walk with cane but for the past 2 days he is unable to. Cardiology was involved for cardiac aspects of care. He denies chest pains. He denies shortness of breath. He denies loss of consciousness. He denies dizziness. Morbidly obese. Not in acute distress. Not using accessory muscles of breathing. No JVD. Speaks slowly. Mucosa is pink and wet. No goiter. No carotid bruit. Lungs are clear to auscultation. Cardiac: Regular, no thrill/gallop. Abdomen is soft. There is no gross mass. Bowel sound is positive. Dorsalis pedis is 2+ bilateral Past medical history includes hypertension, diabetes mellitus, morbid obesity, history of CVA, CKD, old history of GI bleeding anemia, GERD, hyperlipidemia, hiatal hernia and old history of hepatitis-C. Does have history of smoking. Denies alcohol and drug abuse. Family history is positive for hypertension/CVA and heart murmur Echocardiogram of August 03, 2023 had reported mild concentric left ventricular hypertrophy, aortic sclerosis, ejection fraction of 65-70% and no vegetation Echocardiogram of August 2024 revealed ejection fraction of 60-65% Creatinine: 1.61 - 1.75 Potassium: 5.0 - 4.2 Troponin (high sensitive): 3 LDL: 203 CT of the head reported: IMPRESSION: 1. No acute intracranial process. 2. Moderate chronic microvascular ischemic changes. MRI of the brain revealed: IMPRESSION: 1. Small foci of acute ischemia in the right thalamus and left parietal cortex. No intracranial hemorrhage. 2. Extensive chronic microvascular ischemic changes, advanced for patient's age. MRI/MRA of the brain reported: IMPRESSION: 1. High-grade stenosis in the left intracranial ICA. 2. Short-segment occlusion of distal M2 segment of the left MCA. 3. Short-segment moderate stenosis of the proximal A2 segment of the left GILMA. 4. Short-segment occlusion of A3 segment of the right GILMA. 5. Moderate stenosis of the proximal basilar artery. 6. Hypoplastic right vertebral artery short-segment foci of high-grade stenosis and occlusion of the V3 segment. Critical Result: Large vessel occlusion EKG reveals sinus rhythm with no specific ST-T changes. Tele reveals sinus rhythm Patient is a 69-year-old gentleman who presented with lower extremity weakness. Imaging/CT/MRI has revealed CVA. Acute coronary syndrome is not considered at this point. Cardiac etiology for presentation is less likely. CVA, acute Morbid obesity Diabetes mellitus Hypertension Hiatal hernia GI bleeding, history of CKD Cardiac suggestion for management: Manage on telemetry Follow-up electrolytes and kidney function tests and correct abnormalities Aspirin daily High potency statin Request for Chest x-ray Request for Echocardiogram Management / goal of blood pressure as per Neurology Neurology follow up Further evaluation and management depends on the above and clinical course A total of 55 minutes was spent reviewing the patient record, examining the patient, making a diagnostic and therapeutic plan, discussing this plan with medical personnel, following up on diagnostic studies and following the patient for clinical stability excluding any and all procedures. At least 50% of this time was spent in direct, [id number] contact. Thank you for allowing me to participate in this patient's care. Further recommendations will depend on patient's clinical course. Please do not hesitate to contact me if you have any questions or concerns. This medical document was created using electronic medical record system with [employer] computerized dictation system. Although this document has been carefully reviewed, there may still be some phonetic and typographical errors. These areas are purely typographical due to the imperfection of the software programs, and do not reflect any compromise in the patient's medical care. Plan discussed with: Patient, Other (nurse) NEVAEH FALCON MD Dec 10, 2024 06:17
--- NOTE | 2024-12-10 06:31 | ECG ---
[facility] Test Date: 2024-12-09 Test Time: 09:20:22 Pat Name: [facility] Department: ER Room: 0289T Gender: M [employer] Supervisor: ALYSON : [id number] Requested By: CHATO CHRISTIANSON Order Number: [id number] Reading MD: Daren De Los Santos Measurements Intervals [place] Rate: 75 P: 40 CT: 159 QRS: -31 QRSD: 87 T: 4 QT: 379 QTc: 424 Interpretive Statements Sinus rhythm Probable left atrial enlargement Left axis deviation Electronically Signed On 12-11-2024 22:06:37 PST by Daren De Los Santos Please click the below link to view image of tracing.
--- NOTE | 2024-12-10 07:35 | DVH ---
CLINICAL INFORMATION: 69 years old, Male; CVA. TECHNIQUE: Single AP portable chest radiograph was obtained. COMPARISON: XY CHEST XRAY 1 VIEW on DOS: 09/07/24, XY CHEST XRAY 1 VIEW on DOS: 09/03/24, XY CHEST PO RTABLE on DOS: 09/03/24 FINDINGS: Lungs: Mild atelectasis in the lung bases. No focal consolidation. No pneumothorax or pleural effusio n. Cardiac: Heart size is within normal limits. Pulmonary vasculature: Unremarkable. Mediastinum/yolanda: Mild atherosclerotic calcification of the aortic arch Bones: No acute osseous abnormality identified. Other: No other significant findings. IMPRESSION: No evidence of acute disease in the chest.
--- NOTE | 2024-12-10 09:17 | DVHPN2 ---
Progress Note - Dictate Date Seen: Dec 10, 2024 Medical Necessity Reason Pt with a Central, PICC or Fol: No Subjective Mr. Goldsmith is a 69 years old right-handed gentleman with a history of hypertension, diabetes, dyslipidemia, he came to the [facility] on 12/09/2024 with a chief complaint of bilateral leg weakness. At that time, he is alert, fully oriented, he provided the following history I saw him on 08/20/23 for syncope, 09/03/24 for metabolic encephalopathy (MRI: acute strokes) I have seen and examined the patient, I have discussed with his nurse, the case was discussed with Chantel regarding his acute stroke care, carotid stenosis management, and secondary stroke prevention He is doing fine, alert and fully oriented, no new complaints Urinalysis, 12/09/2024: WBC: 314, urine leukocyte esterase: 3+ WBC/HB/PLT/MCV, 12/09/2024: 4/12.8/207/85.3 HGB A1c, 07/2023: 6.1, 12/09/2024: 7.6 BUN/CR, 09/03/2024: 22/1.81, 12/09/2024: 12/1.62 TG/HDL/LDL/HDL, 12/09/2024: 172/277/203/46 Vitamin B12, 04/2024: 622 TSH, 04/2020 4:2.29 MRI head, 08/03/2023: No acute findings. Small vessel chronic ischemic changes MRI head, 09/04/2024: Few small foci of acute ischemia, suspect embolic infarcts. Clinical correlation and continued follow-up is recommended. Consider further evaluation with CTA or MRA of the head and neck MRI head, 12/09/2024: 1. Small foci of acute ischemia in the right thalamus and left parietal cortex. No intracranial hemorrhage. 2. Extensive chronic microvascular ischemic changes, advanced for patient's age. MRA brain, neck, 12/09/2024: 1. High-grade stenosis in the left intracranial ICA. 2. Short-segment occlusion of distal M2 segment of the left MCA. 3. Short- segment moderate stenosis of the proximal A2 segment of the left GILMA. 4. Short- segment occlusion of A3 segment of the right GILMA. 5. Moderate stenosis of the proximal basilar artery. 6. Hypoplastic right vertebral artery short-segment foci of high-grade stenosis and occlusion of the V3 segment vital signs Vital Sign Date Time Temp Pulse Resp B/P (MAP) Pulse Ox O2 Delivery O2 Flow Rate FiO2 12/10/24 07:45 98.4 108 21 173/113 (133) 96 98.4 12/10/24 07:45 Room Air* 0 21 medications Current Medications Medications Dose Ordered Sig/Abilio Route Start Time Stop Time Status Last Admin Dose Admin Sodium Chloride 1,000 ml @ 60 mls/hr [id number] IV 12/09/24 11:00 12/09/24 18:56 60 MLS/HR Acetaminophen/ Hydrocodone Bitart 1 tab Q4HP PRN PO 12/09/24 11:00 12/09/24 21:12 1 TAB Temazepam 15 mg QHSP PRN PO 12/09/24 11:00 Ondansetron HCl 4 mg Q4HP PRN IV 12/09/24 11:00 Docusate Sodium 100 mg BIDPRN PRN PO 12/09/24 11:00 Enoxaparin Sodium 40 mg DAILY SC 12/10/24 10:00 Acetaminophen 650 mg Q6HP PRN PO 12/09/24 11:00 Morphine Sulfate 2 mg Q4HPRN PRN IV 12/09/24 11:00 Nitroglycerin 0.4 mg Q5MINP PRN SL 12/09/24 11:00 Morphine Sulfate 2 mg Q30M PRN IV 12/09/24 11:00 Diagnostic Test (Pha) 1 strip ACHS 12/09/24 11:30 12/10/24 08:24 1 STRIP Insulin Human Regular ACHS SC 12/09/24 11:30 12/10/24 06:54 6 UNITS Dextrose 50 ml UD PRN IV 12/09/24 11:00 Hydralazine HCl 10 mg Q6HP PRN IV 12/09/24 13:00 12/10/24 02:32 10 MG Atorvastatin Calcium 80 mg HS PO 12/09/24 22:00 12/10/24 01:31 80 MG Aspirin 81 mg DAILY PO 12/09/24 13:15 12/09/24 18:54 81 MG objective General: the patient is well developed and nourished. No acute distress. MENTAL STATUS: Subjective SPEECH, LANGUAGE, HIGHER CORTICAL FUNCTION: no aphasia or dysathria. CRANIAL NERVES: Intact visual godfrey to confrontation. Pupils are equal, round and reactive. EOMs full and conjugate. No nystagmus. Facial sensation intact in all three divisions bilaterally. Mandibular strength intact. Facial muscles symmetrical and strength intact. SENSATION: Sensation to touch and pinprick is normal. MOTOR: Normal tone in the upper and lower extremity. Normal muscle bulk. No fasciculations. No abnormal movements or posturing. Muscle strength of the major groups in the upper extremities is 5/5. Muscle strength of the major groups in the extremities is right: 5/5, left 4/5. REFLEXES: Deep tendon reflexes are symmetrical. No pathological reflexes. CEREBELLAR/COORDINATION: Finger to nose is normal bilaterally. GAIT/STATION: deferred laboratory and microbiology Laboratory Tests 12/10/24 02:30 Test 12/10/24 02:30 Range/Units Serum Glucose 248 H 74-106 mg/dL Problem List Acute strokes Chronic stroke Left ICA high-grade stenosis History of GI bleeding with syncope Assessment/Plan Monitoring Supportive treatment Telemetry CLAUDY Syncope precautions discussed GI consultation Re: History GI bleeding with syncope, clearance for a ntiplatelet agent Further address left high-grade ICA stenosis as outpatient This medical document was created using an electronic medical record system with [employer] dictation system. Although this document has been carefully reviewed, there may still be some phonetic and typographical errors. These areas are purely typographical due to imperfections of the software programs, and do not reflect any compromise in the patient's medical care. Prognosis poor Plan discussed with: Patient, Other Total Time (mins): 35 GRACIE UMAÑA MD Dec 10, 2024 09:17
--- NOTE | 2024-12-10 10:16 | DVHPN2 ---
Progress Note - Dictate Date Seen: Dec 10, 2024 Medical Necessity Reason Pt with a Central, PICC or Fol: No vital signs Vital Sign Date Time Temp Pulse Resp B/P (MAP) Pulse Ox O2 Delivery O2 Flow Rate FiO2 12/10/24 09:42 175/104 12/10/24 07:45 98.4 108 21 96 98.4 12/10/24 07:45 Room Air* 0 21 medications Current Medications Medications Dose Ordered Sig/Abilio Route Start Time Stop Time Status Last Admin Dose Admin Sodium Chloride 1,000 ml @ 60 mls/hr [id number] IV 12/09/24 11:00 12/09/24 18:56 60 MLS/HR Acetaminophen/ Hydrocodone Bitart 1 tab Q4HP PRN PO 12/09/24 11:00 12/09/24 21:12 1 TAB Temazepam 15 mg QHSP PRN PO 12/09/24 11:00 Ondansetron HCl 4 mg Q4HP PRN IV 12/09/24 11:00 Docusate Sodium 100 mg BIDPRN PRN PO 12/09/24 11:00 Enoxaparin Sodium 40 mg DAILY SC 12/10/24 10:00 Acetaminophen 650 mg Q6HP PRN PO 12/09/24 11:00 Morphine Sulfate 2 mg Q4HPRN PRN IV 12/09/24 11:00 Nitroglycerin 0.4 mg Q5MINP PRN SL 12/09/24 11:00 Morphine Sulfate 2 mg Q30M PRN IV 12/09/24 11:00 Diagnostic Test (Pha) 1 strip ACHS 12/09/24 11:30 12/10/24 08:24 1 STRIP Insulin Human Regular ACHS SC 12/09/24 11:30 12/10/24 06:54 6 UNITS Dextrose 50 ml UD PRN IV 12/09/24 11:00 Hydralazine HCl 10 mg Q6HP PRN IV 12/09/24 13:00 12/10/24 09:42 10 MG Atorvastatin Calcium 80 mg HS PO 12/09/24 22:00 12/10/24 01:31 80 MG Aspirin 81 mg DAILY PO 12/09/24 13:15 12/09/24 18:54 81 MG objective General Appearance: alert, no distress HEENT: EOMI, PERRLA, normal external inspect of ears, no icterus, no nasal drainage Neck: no carotid bruit, no jugular venous distention (JVD), no lymphadenopathy Chest: normal thorax Respiratory: clear to auscultation, normal air movement Cardiovascular: regular rate and rhythm, no diastolic murmur, no jugular venous distention (JVD), no rub, no systolic murmur Abdominal: soft, no hepatomegaly, no mass, no splenomegaly, no tenderness Musculoskeletal: no joint tenderness, no swelling Extremities: normal pulses, no calf tenderness, no clubbing, no cyanosis, no edema Skin: no bruising, no jaundice, no rash Neurological: alert, No focal deficit laboratory and microbiology Laboratory Tests 12/10/24 02:30 Test 12/10/24 02:30 Range/Units Serum Glucose 248 H 74-106 mg/dL Problem List 1. Hypertensive urgency Cardiology conult 2. Bilateral lower extremity weakness Medication, monitoring 3. Obesity Diet education, monitor 4. DM II w/ hyperglycemia Insulin Sliding Scale 5. HLD Medication, monitoring 6. GERD Medication, monitoring 7. CVA with residual defects Neurology consult 8. CKD 3D Medication, monitoring 9. Acute CVA MRI of Brain Assessment/Plan Subjective Patient is awake and alert. Objective Spoke with neurology. Patient has acute CVA. Patient was noted to have large vessel occlusion with high-grade stenosis and occlusion of V3 segment. Per neurology no need for higher level of care. Patient to follow-up as outpatient with neurosurgery or vascular surgeon for carotid stenosis. Patient was admitted for hypertensive urgency. Plan Continue aspirin and Lipitor. Continue Lovenox. Cardiology and neurology recommendations appreciated. PT eval is pending. Plan discussed with: Patient, Other VITOR SCHULTZ NP Dec 10, 2024 10:16
[2024-12-10] MEDS: ENOXAPARIN SOD 40 MG/0.4 ML SYRINGE SC SCH (10:20)
--- NOTE | 2024-12-10 14:12 | DVHINCON2 ---
GI Consult Consult Note GI consult note Date of Consultation: 2024 Chief Complaint: History of GI bleeding, need long-term antiplatelet agent for CVA Referring Physician: Dr. Balderas H&P: 69-year-old male presented to ER with bilateral lower extremity weakness Patient has history of stroke. Left ICA with high-grade stenosis. Patient has history of GI bleed SP EGD 09/05/2024 DATE OF OPERATION: 09/05/24 PROCEDURE: Upper Endoscopy with biopsy. PREOPERATIVE INDICATION: The patient is a 69 -year-old male undergoing endoscopy for evaluation of coffee-ground emesis POSTOPERATIVE DIAGNOSES: 1. Large hiatal hernia about 10-12 cm with organoaxial rotation but no obstruction or significant volvulus Short-segment Rivera's but no evidence of acute esophagitis or ulceration 2. Mild gastritis within hiatal hernia sac and in the stomach 3. Slight difficulty in entering into the duodenal because of the large hiatal hernia but otherwise normal examination up to the 2nd and 3rd part of the duodenal PROCEDURE PERFORMED BY: Alyx YANG colonoscopy one year ago with one polyp removed No active bleeding noted during either procedures Patient denies abdominal pain. No nausea or vomiting. No hematemesis. No melena or red blood in stool Past Medical History: Anemia, CHF, CVA, DM, GERD, High Lipids, HTN Past Surgical History: Denies Social History: NO smoking, drinking ETOH and use of illegal drugs. Family History: Noncontributory Review of Systems: Constitutional: no fever, chill, weight loss HEENT: no eye pain, no hearing loss, no oral lesion, no scleral icterus Heart: no chest pain, no chest pressure Lung: no cough, no dyspnea with exertion Abdomen: see HPI Physical exam: General: NAD, AAOX3 Chest: lung godfrey clear to auscultation Heart: RRR, no murmur Abdomen: non-distended, no tenderness to palpation, +BS Labs: Labs Test 12/10/24 11:41 12/10/24 02:30 12/09/24 18:36 12/09/24 10:28 Range/Units POC Glucose 240 H 70-106 mg/dl White Blood Count 7.3 # 4.4-10.8 10^3/uL Red Blood Count 4.78 4.5-5.90 10^6/uL Hemoglobin 13.2 L 13.5-17.5 g/dL Hematocrit 41.0 41.0-53.0 % Mean Corpuscular Volume 85.6 80.0-100.0 fL Mean Corpuscular Hemoglobin 27.7 L 28.0-32.0 pg Mean Corpuscular Hemoglobin Concent 32.3 32.0-36.0 g/dL Red Cell Distribution Width 17.7 H 11.8-14.3 % Platelet Count 235 140-450 10^3/uL Mean Platelet Volume 8.9 6.9-10.8 fL Neutrophils (%) (Auto) 56.6 37.0-80.0 % Lymphocytes (%) (Auto) 33.8 10.0-50.0 % Monocytes (%) (Auto) 8.5 0.0-12.0 % Eosinophils (%) (Auto) 0.6 0.0-7.0 % Basophils (%) (Auto) 0.5 0.0-2.0 % Neutrophils # (Auto) 4.1 1.6-8.6 10 ^3/uL Lymphocytes # (Auto) 2.5 0.4-5.4 10 ^3/uL Monocytes # (Auto) 0.6 0-1.3 10 ^3/uL Eosinophils # (Auto) 0 0-0.8 10 ^3/uL Basophils # (Auto) 0 0-0.2 10 ^3/uL Nucleated Red Blood Cells 0.1 % Sodium Level 136 136-145 mmol/L Potassium Level 4.2 3.5-5.1 mmol/L Chloride Level 102 98-107 mmol/L Carbon Dioxide Level 23 20-31 mmol/L Anion Gap 11 5-15 Blood Urea Nitrogen 16 9-23 mg/dL Creatinine 1.75 H 0.700-1.30 mg/dL Glomerular Filtration Rate Calc 42 >90 mL/min BUN/Creatinine Ratio 9.1 L 10.0-20.0 Serum Glucose 248 H 74-106 mg/dL Calcium Level 9.6 8.7-10.4 mg/dL Total Bilirubin 0.4 0.2-1.0 mg/dL Aspartate Amino Transferase (AST) 18 13-40 U/L Alanine Aminotransferase (ALT) 15 7-40 U/L Alkaline Phosphatase 85 46-116 U/L Total Protein 7.2 5.7-8.2 g/dL Albumin 4.2 3.2-4.8 g/dL Urine Color Light-orange Yellow Urine Clarity Turbid H Clear Urine pH 6.5 5.0-9.0 Urine Specific [place] 1.019 1.001-1.035 Urine Protein 3+ H Negative Urine Ketones Negative Negative Urine Blood 1+ H Negative /uL Urine Nitrite Negative Negative Urine Bilirubin Negative Negative Urine Urobilinogen Normal Negative mg/dL Urine Leukocyte Esterase 3+ Negative /uL Urine RBC 5 0 - 3 /hpf Urine WBC Clumps Present None Seen /hpf Urine Microscopic WBC 314 H 0-3 /HPF Urine Squamous Epithelial Cells Few <5 /hpf Urine Bacteria None seen None Seen /hpf Urine Glucose 3+ H Normal mg/dL Hemoglobin A1c 7.6 H <5.7 % A1C Test 12/09/24 09:28 Range/Units Troponin I High Sensitivity 3 L </=54 ng/L Triglycerides Level 172 H < 150 mg/dL Cholesterol Level 277 H < 200 mg/dL LDL Cholesterol 203 H < 100 mg/dL HDL Cholesterol 46 40-59 mg/dL Imaging: Assessment: CVA Left ICA high-grade stenosis History of GI bleeding Hiatal hernia Gastritis Colon polyp Plan: Discussed with Dr. Junior Patient cleared to start anti-platelet treatment GI team on standby if any bleeding Protonix b.i.d. Iron supplements recommended Follow-up GI clinic in three months Possible repeat colonoscopy recommended in 1-2 years Thank you for this consult Date of Service: Dec 10, 2024 Billing Provider: TOSHA TAYLOR Common Visit Codes: CONSULT ONLY Consultation Codes: [id number] CONSULT <45MIN TOSHA TAYLOR Dec 10, 2024 14:12
--- NOTE | 2024-12-10 16:41 | DVHINCON2 ---
Date of service: Dec 10, 2024 Reason for Consultation mike History of Present Illness 69 years old male with medical history hypertension uncontrolled, diabetes, obesity, Chronic kidney disease IIIb, CVA presented with chief complaints of lower extremity weakness bilateral, complaints of headache, Past Medical History per hpi Allergies: Coded Allergies: NO KNOWN ALLERGIES (Unverified , 06/03/16) Home Meds Active Scripts Sucralfate (CARAFATE) 1 Gm Tab, 1 GM OR QIDACHS for 30 Days, #120 TAB Prov:ALVAREZNOAMVITOR Ainsley BOYKIN 09/08/24 Pantoprazole Sodium Sesquihydr (Protonix) 40 Mg Tab, 40 MG PO DAILY, #30 TAB Prov:VITOR SCHULTZ Ainsley SECTION HAND HELPER 09/08/24 Clonidine Hydrochloride (Clonidine Hcl) 0.2 Mg Tab, 1 TAB PO BID, #60 TAB 5 Refills Prov:VITOR SCHULTZ Ainsley SECTION HAND HELPER 09/08/24 Atorvastatin Calcium (ATORVASTATIN CALCIUM) 80 Mg Tab, 1 TAB PO DAILY, #30 TAB 5 Refills Prov:VITOR SCHULTZ Ainsley BOYKIN 09/08/24 Reported Medications Dapagliflozin Propanediol (Farxiga) 10 Mg Tab, 1 TAB PO DAILY 09/03/24 Metformin Hydrochloride (Metformin Hcl) 850 Mg Tab, 1 TAB PO BID 09/30/22 Benazepril Hcl (Benazepril Hcl) 40 Mg Tab, 1 TAB PO DAILY 09/30/22 Amlodipine Besylate (Amlodipine Besylate) 10 Mg Tab, 1 TAB PO DAILY 09/30/22 Current Medications Current Medications Medications (Trade) Dose Ordered Sig/Abilio Route PRN Reason Start Time Stop Time Status Last Admin Enoxaparin Sodium (Lovenox) 40 mg DAILY SC 12/10/24 10:00 12/10/24 10:20 Atorvastatin Calcium (Lipitor) 80 mg HS PO 12/09/24 22:00 12/10/24 01:31 Pantoprazole Sodium (Protonix) 40 mg DAILY IV 12/11/24 10:00 UNV Family History: Cardiovascular disease G8 BROTHER Cerebrovascular accident (CVA) G8 MOTHER FH: heart failure G8 FATHER Hypertension G8 MOTHER Review of Systems As documented HPI H&P Exam Vital Signs/I&O Vital Sign Date Time Temp Pulse Resp B/P (MAP) Pulse Ox O2 Delivery O2 Flow Rate FiO2 12/10/24 14:40 170/104 12/10/24 13:55 99.8 115 18 95 99.8 12/10/24 07:45 Room Air* 0 21 Physical Exam General-not in any distress HEENT-normocephalic, no icterus, no pallor, neck supple Respiratory-fair air entry bilateral, no rhonchi, no wheeze [id number]-[id number] heard, no murmurs appreciated Abdominal-soft, nontender, nondistended Musculoskeletal-no pedal edema, no calf tenderness Genitourinary-deferred Neuro-awake alert oriented x3, Psychiatric-not agitated, cooperative, Labs/Diagnostic Data Labs/Diagnostic Data Laboratory Tests Test 12/10/24 11:41 12/10/24 08:23 12/10/24 06:42 12/10/24 02:30 Range/Units POC Glucose 240 H 262 H 297 H 70-106 mg/dl White Blood Count 7.3 # 4.4-10.8 10^3/uL Red Blood Count 4.78 4.5-5.90 10^6/uL Hemoglobin 13.2 L 13.5-17.5 g/dL Hematocrit 41.0 41.0-53.0 % Mean Corpuscular Volume 85.6 80.0-100.0 fL Mean Corpuscular Hemoglobin 27.7 L 28.0-32.0 pg Mean Corpuscular Hemoglobin Concent 32.3 32.0-36.0 g/dL Red Cell Distribution Width 17.7 H 11.8-14.3 % Platelet Count 235 140-450 10^3/uL Mean Platelet Volume 8.9 6.9-10.8 fL Neutrophils (%) (Auto) 56.6 37.0-80.0 % Lymphocytes (%) (Auto) 33.8 10.0-50.0 % Monocytes (%) (Auto) 8.5 0.0-12.0 % Eosinophils (%) (Auto) 0.6 0.0-7.0 % Basophils (%) (Auto) 0.5 0.0-2.0 % Neutrophils # (Auto) 4.1 1.6-8.6 10 ^3/uL Lymphocytes # (Auto) 2.5 0.4-5.4 10 ^3/uL Monocytes # (Auto) 0.6 0-1.3 10 ^3/uL Eosinophils # (Auto) 0 0-0.8 10 ^3/uL Basophils # (Auto) 0 0-0.2 10 ^3/uL Nucleated Red Blood Cells 0.1 % Sodium Level 136 136-145 mmol/L Potassium Level 4.2 3.5-5.1 mmol/L Chloride Level 102 98-107 mmol/L Carbon Dioxide Level 23 20-31 mmol/L Anion Gap 11 5-15 Blood Urea Nitrogen 16 9-23 mg/dL Creatinine 1.75 H 0.700-1.30 mg/dL Glomerular Filtration Rate Calc 42 >90 mL/min BUN/Creatinine Ratio 9.1 L 10.0-20.0 Serum Glucose 248 H 74-106 mg/dL Calcium Level 9.6 8.7-10.4 mg/dL Total Bilirubin 0.4 0.2-1.0 mg/dL Aspartate Amino Transferase (AST) 18 13-40 U/L Alanine Aminotransferase (ALT) 15 7-40 U/L Alkaline Phosphatase 85 46-116 U/L Total Protein 7.2 5.7-8.2 g/dL Albumin 4.2 3.2-4.8 g/dL Test 12/10/24 01:23 12/09/24 18:36 12/09/24 13:19 12/09/24 10:28 Range/Units POC Glucose 212 H 211 H 70-106 mg/dl Urine Color Light-orange Yellow Urine Clarity Turbid H Clear Urine pH 6.5 5.0-9.0 Urine Specific [place] 1.019 1.001-1.035 Urine Protein 3+ H Negative Urine Ketones Negative Negative Urine Blood 1+ H Negative /uL Urine Nitrite Negative Negative Urine Bilirubin Negative Negative Urine Urobilinogen Normal Negative mg/dL Urine Leukocyte Esterase 3+ Negative /uL Urine RBC 5 0 - 3 /hpf Urine WBC Clumps Present None Seen /hpf Urine Microscopic WBC 314 H 0-3 /HPF Urine Squamous Epithelial Cells Few <5 /hpf Urine Bacteria None seen None Seen /hpf Urine Glucose 3+ H Normal mg/dL White Blood Count 4.0 L 4.4-10.8 10^3/uL Red Blood Count 4.64 4.5-5.90 10^6/uL Hemoglobin 12.8 L 13.5-17.5 g/dL Hematocrit 39.6 L 41.0-53.0 % Mean Corpuscular Volume 85.3 80.0-100.0 fL Mean Corpuscular Hemoglobin 27.6 L 28.0-32.0 pg Mean Corpuscular Hemoglobin Concent 32.3 32.0-36.0 g/dL Red Cell Distribution Width 17.6 H 11.8-14.3 % Platelet Count 207 140-450 10^3/uL Mean Platelet Volume 8.8 6.9-10.8 fL Neutrophils (%) (Auto) 51.6 37.0-80.0 % Lymphocytes (%) (Auto) 38.2 10.0-50.0 % Monocytes (%) (Auto) 8.4 0.0-12.0 % Eosinophils (%) (Auto) 1.0 0.0-7.0 % Basophils (%) (Auto) 0.8 0.0-2.0 % Neutrophils # (Auto) 2.1 1.6-8.6 10 ^3/uL Lymphocytes # (Auto) 1.5 0.4-5.4 10 ^3/uL Monocytes # (Auto) 0.3 0-1.3 10 ^3/uL Eosinophils # (Auto) 0 0-0.8 10 ^3/uL Basophils # (Auto) 0 0-0.2 10 ^3/uL Nucleated Red Blood Cells 0.1 % Hemoglobin A1c 7.6 H <5.7 % A1C Test 12/09/24 09:28 12/09/24 09:14 Range/Units Sodium Level 137 136-145 mmol/L Potassium Level 5.0 3.5-5.1 mmol/L Chloride Level 107 98-107 mmol/L Carbon Dioxide Level 21 20-31 mmol/L Anion Gap 9 5-15 Blood Urea Nitrogen 12 9-23 mg/dL Creatinine 1.61 H 0.700-1.30 mg/dL Glomerular Filtration Rate Calc 46 >90 mL/min BUN/Creatinine Ratio 7.5 L 10.0-20.0 Serum Glucose 297 H 74-106 mg/dL Calcium Level 9.5 8.7-10.4 mg/dL Troponin I High Sensitivity 3 L </=54 ng/L Triglycerides Level 172 H < 150 mg/dL Cholesterol Level 277 H < 200 mg/dL LDL Cholesterol 203 H < 100 mg/dL HDL Cholesterol 46 40-59 mg/dL POC Glucose 266 H 70-106 mg/dl Assessment Acute kidney injury on Chronic kidney disease IIIb hemodynamic mediated in the setting of hypertensive urgency Hypertensive urgency secondary to noncompliance Acute CVA Diabetes Obesity Proteinuria Recommendations Check U PCR Kidney ultrasound Slow reduction of blood pressure given acute CVA Start with amlodipine, MAEVE inhibitor or ARB and thiazide We will follow closely Reviewed vital signs, lab work, imaging studies, medications, microbiology, other physician recommendations Total time spent 80 minutes More than 50% of the time spent providing direct [id number] care . Thank you for allowing me to participate in the care of your patient. Plan discussed with: Patient ABY WILLIS MD Dec 10, 2024 16:41
[2024-12-10] MEDS: ONDANSETRON HCL 4 MG/2 ML VIAL IV PRN (16:44)
[2024-12-10] MEDS: LOSARTAN POTASSIUM 50 MG TAB PO SCH (21:07)
[2024-12-11] VITALS (8 sets, daily range): BP systolic 151–181; BP diastolic 92–111; PULSE 102–119; RESP 18–20; TEMP 98.3–99.3; O2SAT 93–99
--- NOTE | 2024-12-11 07:09 | DVHSR ---
APPROVED REPORT EXAM: Two-dimensional and M-mode echocardiogram with Doppler and color Doppler. Blood Pressure: 161/97 mmHg INDICATION CVA RISK FACTORS Height: 5'11, Weight: 216 DIMENSIONS LVDd4.1 (3.8-5.7cm)LA (2D)4.7 (1.9-4.0cm)Aortic Root3.4 (2.0-3.7cm) LVDs2.7 (2.5-4.0cm)LA (MM) (1.9-4.0cm)Aortic Cusp Exc1.7 (1.5-2.0cm) EF (%) 55.0 (55-70%)Rt. Atrium2.4 (1.9-4.0cm)Asc. Aorta cm IVSd1.1 (0.7-1.1cm)RV (D) (1.8-2.4cm) PWd1.1 (0.7-1.1cm) Mitral Valve MitralMitral Stenosis E wave0.84m/sMV Mean GR.mmHg A wave1.50m/sMV Peak GR.mmHg E/A ratio0.62D MVAcm2 DECEL [id number] 1/2 [place] Aortic Valve Aortic ValveAortic Stenosis V10.92m/Samanta Mean GR.4mmHg V21.22m/Samanta Peak GR.6mmHg LVOT Diameter2.5 (1.8-2.4cm)Doppler AVA3.70cm2 Pulmonic Valve V21.05m/s Conclusion Left ventricle: Concentric left ventricular hypertrophy was seen. LVEF was 60-65%. There was no gr oss wall motion abnormality. Right ventricle was normal sized with normal systolic function. Left atrium was dilated. Right atri um was normal sized. Aortic valve: Aortic valve was trileaflet. There was no aortic insufficiency/stenosis. There was tr ivial mitral regurgitation. There was no tricuspid regurgitation. There was no pulmonary valve insu fficiency. There was no pericardial effusion. As there was no good tricuspid regurgitation jet, right ventricul ar systolic pressure could not be estimated. There was no echocardiographic evidence for pulmonary h ypertension. IVC was normal sized with normal respiratory variation.
--- NOTE | 2024-12-11 07:11 | DVHPN2 ---
Progress Note - Dictate Date Seen: Dec 11, 2024 Medical Necessity Reason Pt with a Central, PICC or Fol: No vital signs Vital Sign Date Time Temp Pulse Resp B/P (MAP) Pulse Ox O2 Delivery O2 Flow Rate FiO2 12/11/24 05:00 98.5 102 18 181/111 (134) 95 98.5 12/10/24 20:00 Room Air* 0 21 Total Intake and Output 12/10/24 12/10/24 12/11/24 15:00 23:00 07:00 Intake Total 300 ml 300 ml Output Total 350 ml Balance 300 ml -50 ml medications Current Medications Medications Dose Ordered Sig/Abilio Route Start Time Stop Time Status Last Admin Dose Admin Sodium Chloride 1,000 ml @ 60 mls/hr [id number] IV 12/09/24 11:00 12/09/24 18:56 60 MLS/HR Acetaminophen/ Hydrocodone Bitart 1 tab Q4HP PRN PO 12/09/24 11:00 12/09/24 21:12 1 TAB Temazepam 15 mg QHSP PRN PO 12/09/24 11:00 Ondansetron HCl 4 mg Q4HP PRN IV 12/09/24 11:00 12/10/24 16:44 4 MG Docusate Sodium 100 mg BIDPRN PRN PO 12/09/24 11:00 Enoxaparin Sodium 40 mg DAILY SC 12/10/24 10:00 12/10/24 10:20 40 MG Acetaminophen 650 mg Q6HP PRN PO 12/09/24 11:00 Morphine Sulfate 2 mg Q4HPRN PRN IV 12/09/24 11:00 Nitroglycerin 0.4 mg Q5MINP PRN SL 12/09/24 11:00 Morphine Sulfate 2 mg Q30M PRN IV 12/09/24 11:00 Diagnostic Test (Pha) 1 strip ACHS 12/09/24 11:30 12/11/24 06:22 1 STRIP Insulin Human Regular ACHS SC 12/09/24 11:30 12/11/24 06:22 3 UNITS Dextrose 50 ml UD PRN IV 12/09/24 11:00 Hydralazine HCl 10 mg Q6HP PRN IV 12/09/24 13:00 12/11/24 04:27 10 MG Atorvastatin Calcium 80 mg HS PO 12/09/24 22:00 12/10/24 21:07 80 MG Aspirin 81 mg DAILY PO 12/09/24 13:15 12/10/24 10:19 81 MG Pantoprazole Sodium 40 mg DAILY IV 12/11/24 10:00 Losartan Potassium 50 mg BID PO 12/10/24 22:00 12/10/24 21:07 50 MG laboratory and microbiology Laboratory Tests 12/10/24 02:30 Test 12/10/24 02:30 Range/Units Serum Glucose 248 H 74-106 mg/dL Assessment/Plan Patient is a 69-year-old gentleman who presented to the hospital for worsening bilateral lower extremity weakness and swelling. He did have some headaches. He mentions that he has not been able to walk for the past 2 days. It is of note that the patient did have a CVA back in August 2024. Since that time he was able to walk with cane but for the past 2 days he is unable to. Cardiology was involved for cardiac aspects of care. He denies chest pains. He denies shortness of breath. He denies loss of consciousness. He denies dizziness. Morbidly obese. Not in acute distress. Not using accessory muscles of breathing. No JVD. Speaks slowly. Mucosa is pink and wet. No goiter. No carotid bruit. Lungs are clear to auscultation. Cardiac: Regular, no thrill/gallop. Abdomen is soft. There is no gross mass. Bowel sound is positive. Dorsalis pedis is 2+ bilateral Past medical history includes hypertension, diabetes mellitus, morbid obesity, history of CVA, CKD, old history of GI bleeding anemia, GERD, hyperlipidemia, hiatal hernia and old history of hepatitis-C. Does have history of smoking. Denies alcohol and drug abuse. Family history is positive for hypertension/CVA and heart murmur Echocardiogram of August 03, 2023 had reported mild concentric left ventricular hypertrophy, aortic sclerosis, ejection fraction of 65-70% and no vegetation Echocardiogram of August 2024 revealed ejection fraction of 60-65% Creatinine: 1.61 - 1.75 Potassium: 5.0 - 4.2 Troponin (high sensitive): 3 LDL: 203 CT of the head reported: IMPRESSION: 1. No acute intracranial process. 2. Moderate chronic microvascular ischemic changes. MRI of the brain revealed: IMPRESSION: 1. Small foci of acute ischemia in the right thalamus and left parietal cortex. No intracranial hemorrhage. 2. Extensive chronic microvascular ischemic changes, advanced for patient's age. MRI/MRA of the brain reported: IMPRESSION: 1. High-grade stenosis in the left intracranial ICA. 2. Short-segment occlusion of distal M2 segment of the left MCA. 3. Short-segment moderate stenosis of the proximal A2 segment of the left GILMA. 4. Short-segment occlusion of A3 segment of the right GILMA. 5. Moderate stenosis of the proximal basilar artery. 6. Hypoplastic right vertebral artery short-segment foci of high-grade stenosis and occlusion of the V3 segment. Critical Result: Large vessel occlusion Chest xry reported: IMPRESSION: No evidence of acute disease in the chest. EKG reveals sinus rhythm with no specific ST-T changes. Tele reveals sinus rhythm Echocardiogram reported: Left ventricle: Concentric left ventricular hypertrophy was seen. LVEF was 60-65%. There was no gross wall motion abnormality. Right ventricle was normal sized with normal systolic function. Left atrium was dilated. Right atrium was normal sized. Aortic valve: Aortic valve was trileaflet. There was no aortic insufficiency/stenosis. There was trivial mitral regurgitation. There was no tricuspid regurgitation. There was no pulmonary valve insufficiency. There was no pericardial effusion. As there was no good tricuspid regurgitation jet, right ventricular systolic pressure could not be estimated. There was no echocardiographic evidence for pulmonary hypertension. IVC was normal sized with normal respiratory variation. Patient is a 69-year-old gentleman who presented with lower extremity weakness. Imaging/CT/MRI has revealed CVA. Acute coronary syndrome is not considered at this point. Cardiac etiology for presentation is less likely. CVA, acute Morbid obesity Diabetes mellitus Hypertension Hiatal hernia GI bleeding, history of CKD Cardiac suggestion for management: Manage on telemetry Follow-up electrolytes and kidney function tests and correct abnormalities Aspirin daily High potency statin Management / goal of blood pressure as per Neurology Will arrange CLAUDY as per Neurology Neurology follow up Further evaluation and management depends on the above and clinical course A total of 55 minutes was spent reviewing the patient record, examining the patient, making a diagnostic and therapeutic plan, discussing this plan with medical personnel, following up on diagnostic studies and following the patient for clinical stability excluding any and all procedures. At least 50% of this time was spent in direct, [id number] contact. Thank you for allowing me to participate in this patient's care. Further recommendations will depend on patient's clinical course. Please do not hesitate to contact me if you have any questions or concerns. This medical document was created using electronic medical record system with Siemens computerized dictation system. Although this document has been carefully reviewed, there may still be some phonetic and typographical errors. These areas are purely typographical due to the imperfection of the software programs, and do not reflect any compromise in the patient's medical care. Plan discussed with: Other (nurse) NEVAEH FALCON MD Dec 11, 2024 07:11
[2024-12-11] MEDS: PANTOPRAZOLE 40 MG/10 ML VIAL INJ IV SCH (09:20)
--- NOTE | 2024-12-11 10:25 | DVH ---
INDICATION: mike TECHNIQUE: Multiple real-time sonographic images of the kidneys and bladder were obtained. COMPARISON: None FINDINGS: The right kidney measures 10 cm in length, which is normal in size. There is normal echogenicity of t he right kidney. No hydronephrosis. The left kidney measures 10 cm in length, which is normal in size. There is normal echogenicity of th e left kidney. No hydronephrosis. Bladder mass measuring 7.3 cm. IMPRESSION: Possible hyperechoic bladder mass. Cystoscopy recommended
--- NOTE | 2024-12-11 11:54 | DVHPN2 ---
Progress Note Date Seen: Dec 11, 2024 Resident Creating Document: FADY RAMÍREZ RESIDENT Medical Necessity Reason Pt with a Central, PICC or Fol: No Subjective Patient reports: No new complaints, Feels better Changes from previous H/P or p: No Changes Objective vital signs Vital Sign Date Time Temp Pulse Resp B/P (MAP) Pulse Ox O2 Delivery O2 Flow Rate FiO2 12/11/24 09:21 158/93 12/11/24 09:00 98.3 116 18 93 98.3 12/10/24 20:00 Room Air* 0 21 Total Intake and Output 12/10/24 12/10/24 12/11/24 15:00 23:00 07:00 Intake Total 300 ml 300 ml Output Total 350 ml Balance 300 ml -50 ml medications Current Medications Medications Dose Ordered Sig/Abilio Route Start Time Stop Time Status Last Admin Dose Admin Sodium Chloride 1,000 ml @ 60 mls/hr [id number] IV 12/09/24 11:00 12/09/24 18:56 60 MLS/HR Acetaminophen/ Hydrocodone Bitart 1 tab Q4HP PRN PO 12/09/24 11:00 12/09/24 21:12 1 TAB Temazepam 15 mg QHSP PRN PO 12/09/24 11:00 Ondansetron HCl 4 mg Q4HP PRN IV 12/09/24 11:00 12/10/24 16:44 4 MG Docusate Sodium 100 mg BIDPRN PRN PO 12/09/24 11:00 Enoxaparin Sodium 40 mg DAILY SC 12/10/24 10:00 12/11/24 09:29 40 MG Acetaminophen 650 mg Q6HP PRN PO 12/09/24 11:00 Morphine Sulfate 2 mg Q4HPRN PRN IV 12/09/24 11:00 Nitroglycerin 0.4 mg Q5MINP PRN SL 12/09/24 11:00 Morphine Sulfate 2 mg Q30M PRN IV 12/09/24 11:00 Diagnostic Test (Pha) 1 strip ACHS 12/09/24 11:30 12/11/24 11:29 1 STRIP Insulin Human Regular ACHS SC 12/09/24 11:30 12/11/24 11:34 3 UNITS Dextrose 50 ml UD PRN IV 12/09/24 11:00 Hydralazine HCl 10 mg Q6HP PRN IV 12/09/24 13:00 12/11/24 04:27 10 MG Atorvastatin Calcium 80 mg HS PO 12/09/24 22:00 12/10/24 21:07 80 MG Aspirin 81 mg DAILY PO 12/09/24 13:15 12/11/24 09:21 81 MG Pantoprazole Sodium 40 mg DAILY IV 12/11/24 10:00 12/11/24 09:20 40 MG Losartan Potassium 50 mg BID PO 12/10/24 22:00 12/11/24 09:21 50 MG Examination: GENERAL:Normal, HEENT:Normal, NECK:Normal, LUNGS:Normal, CVS:Normal, ABDOMEN:Normal, MSK:Normal, SKIN:Normal, NEURO:Normal, :Normal laboratory and microbiology Laboratory Tests 12/10/24 02:30 Test 12/10/24 02:30 Range/Units Serum Glucose 248 H 74-106 mg/dL Problem List/Assessment/Plan Problem List/Assessment/Plan CVA Left ICA high-grade stenosis History of GI bleeding Hiatal hernia Gastritis Colon polyp Plan/recommendation EGD (09/05/24 ) 1. Large hiatal hernia about 10-12 cm with organoaxial rotation but no obstruction or significant volvulus Short-segment Rivera's but no evidence of acute esophagitis or ulceration 2. Mild gastritis within hiatal hernia sac and in the stomach 3. Slight difficulty in entering into the duodenal because of the large hiatal hernia but otherwise normal examination up to the 2nd and 3rd part of the duodenal -Continue Protonix 40 mg p.o. daily -Continue Carafate 1 g p.o. twice daily. -Patient cleared to start antiplatelets treatment -Iron supplements recommended -GI team on standby if any bleeding Plan discussed with: Patient, Other FADY RAMÍREZ RESIDENT Dec 11, 2024 11:54
--- NOTE | 2024-12-11 16:51 | DVHPN2 ---
Progress Note Date Seen: Dec 11, 2024 Medical Necessity Reason Pt with a Central, PICC or Fol: No Subjective Patient reports: No new complaints Review of Systems: Deferred Objective vital signs Vital Sign Date Time Temp Pulse Resp B/P (MAP) Pulse Ox O2 Delivery O2 Flow Rate FiO2 12/11/24 13:31 188/99 12/11/24 13:00 98.8 103 18 99 98.8 12/11/24 08:00 Room Air* 0 21 Total Intake and Output 12/10/24 12/10/24 12/11/24 15:00 23:00 07:00 Intake Total 300 ml 300 ml Output Total 350 ml Balance 300 ml -50 ml medications Current Medications Medications Dose Ordered Sig/Abilio Route Start Time Stop Time Status Last Admin Dose Admin Acetaminophen/ Hydrocodone Bitart 1 tab Q4HP PRN PO 12/09/24 11:00 12/09/24 21:12 1 TAB Temazepam 15 mg QHSP PRN PO 12/09/24 11:00 Ondansetron HCl 4 mg Q4HP PRN IV 12/09/24 11:00 12/10/24 16:44 4 MG Docusate Sodium 100 mg BIDPRN PRN PO 12/09/24 11:00 Enoxaparin Sodium 40 mg DAILY SC 12/10/24 10:00 12/11/24 09:29 40 MG Acetaminophen 650 mg Q6HP PRN PO 12/09/24 11:00 Morphine Sulfate 2 mg Q4HPRN PRN IV 12/09/24 11:00 Nitroglycerin 0.4 mg Q5MINP PRN SL 12/09/24 11:00 Morphine Sulfate 2 mg Q30M PRN IV 12/09/24 11:00 Diagnostic Test (Pha) 1 strip ACHS 12/09/24 11:30 12/11/24 11:29 1 STRIP Insulin Human Regular ACHS SC 12/09/24 11:30 12/11/24 11:34 3 UNITS Dextrose 50 ml UD PRN IV 12/09/24 11:00 Hydralazine HCl 10 mg Q6HP PRN IV 12/09/24 13:00 12/11/24 13:31 10 MG Atorvastatin Calcium 80 mg HS PO 12/09/24 22:00 12/10/24 21:07 80 MG Aspirin 81 mg DAILY PO 12/09/24 13:15 12/11/24 09:21 81 MG Pantoprazole Sodium 40 mg DAILY IV 12/11/24 10:00 12/11/24 09:20 40 MG Losartan Potassium 50 mg BID PO 12/10/24 22:00 12/11/24 09:21 50 MG Clonidine HCl 0.2 mg BID PO 12/11/24 16:45 UNV Examination: GENERAL:Normal, HEENT:Normal, NECK:Normal, LUNGS:Normal, CVS:Normal, ABDOMEN:Normal, MSK:Abnormal, SKIN:Normal, NEURO:Normal, :Normal laboratory and microbiology Laboratory Tests 12/10/24 02:30 Test 12/10/24 02:30 Range/Units Serum Glucose 248 H 74-106 mg/dL Problem List/Assessment/Plan Problem List/Assessment/Plan Acute kidney injury on Chronic kidney disease IIIb hemodynamic mediated in the setting of hypertensive urgency Hypertensive urgency secondary to noncompliance Acute CVA Diabetes Obesity Proteinuria bladder mass Recommendations Check U PCR Kidney ultrasound--bladder mass-urology consulted Slow reduction of blood pressure given acute CVA Start with amlodipine, MAEVE inhibitor or ARB and thiazide--use clonidine prn only We will follow closely Plan discussed with: Patient My Orders My Orders Orders - ABY WILLIS MD Procedure Category Date Status Time Kidney US 12/11/24 Resulted 08:41 * Urology Consult CONS 12/11/24 Transmitted 16:45 ABY WILLIS MD Dec 11, 2024 16:51
[2024-12-11] MEDS: cloNIDine HCL 0.1 MG TAB PO SCH (17:48)
--- NOTE | 2024-12-11 19:34 | DVHPN2 ---
Progress Note - Dictate Date Seen: Dec 11, 2024 Medical Necessity Reason Pt with a Central, PICC or Fol: No vital signs Vital Sign Date Time Temp Pulse Resp B/P (MAP) Pulse Ox O2 Delivery O2 Flow Rate FiO2 12/11/24 17:48 164/101 12/11/24 17:00 99.3 119 18 96 99.3 12/11/24 08:00 Room Air* 0 21 Total Intake and Output 12/10/24 12/10/24 12/11/24 15:00 23:00 07:00 Intake Total 300 ml 300 ml Output Total 350 ml Balance 300 ml -50 ml medications Current Medications Medications Dose Ordered Sig/Abilio Route Start Time Stop Time Status Last Admin Dose Admin Acetaminophen/ Hydrocodone Bitart 1 tab Q4HP PRN PO 12/09/24 11:00 12/09/24 21:12 1 TAB Temazepam 15 mg QHSP PRN PO 12/09/24 11:00 Ondansetron HCl 4 mg Q4HP PRN IV 12/09/24 11:00 12/10/24 16:44 4 MG Docusate Sodium 100 mg BIDPRN PRN PO 12/09/24 11:00 Enoxaparin Sodium 40 mg DAILY SC 12/10/24 10:00 12/11/24 09:29 40 MG Acetaminophen 650 mg Q6HP PRN PO 12/09/24 11:00 Morphine Sulfate 2 mg Q4HPRN PRN IV 12/09/24 11:00 Nitroglycerin 0.4 mg Q5MINP PRN SL 12/09/24 11:00 Morphine Sulfate 2 mg Q30M PRN IV 12/09/24 11:00 Diagnostic Test (Pha) 1 strip ACHS 12/09/24 11:30 12/11/24 17:41 1 STRIP Insulin Human Regular ACHS SC 12/09/24 11:30 12/11/24 17:47 6 UNITS Dextrose 50 ml UD PRN IV 12/09/24 11:00 Hydralazine HCl 10 mg Q6HP PRN IV 12/09/24 13:00 12/11/24 13:31 10 MG Atorvastatin Calcium 80 mg HS PO 12/09/24 22:00 12/10/24 21:07 80 MG Aspirin 81 mg DAILY PO 12/09/24 13:15 2/20/25 09:21 81 MG Pantoprazole Sodium 40 mg DAILY IV 12/11/24 10:00 12/11/24 09:20 40 MG Losartan Potassium 50 mg BID PO 12/10/24 22:00 12/11/24 09:21 50 MG Clonidine HCl 0.2 mg BID PO 12/11/24 16:45 12/11/24 17:48 0.2 MG objective General Appearance: alert, no distress HEENT: EOMI, PERRLA, normal external inspect of ears, no icterus, no nasal drainage Neck: no carotid bruit, no jugular venous distention (JVD), no lymphadenopathy Chest: normal thorax Respiratory: clear to auscultation, normal air movement Cardiovascular: regular rate and rhythm, no diastolic murmur, no jugular venous distention (JVD), no rub, no systolic murmur Abdominal: soft, no hepatomegaly, no mass, no splenomegaly, no tenderness Musculoskeletal: no joint tenderness, no swelling Extremities: normal pulses, no calf tenderness, no clubbing, no cyanosis, no edema Skin: no bruising, no jaundice, no rash Neurological: alert, No focal deficit laboratory and microbiology Laboratory Tests 12/10/24 02:30 Test 12/10/24 02:30 Range/Units Serum Glucose 248 H 74-106 mg/dL Problem List 1. Hypertensive urgency Cardiology conult 2. Bilateral lower extremity weakness Medication, monitoring 3. Obesity Diet education, monitor 4. DM II w/ hyperglycemia Insulin Sliding Scale 5. HLD Medication, monitoring 6. GERD Medication, monitoring 7. CVA with residual defects Neurology consult 8. CKD 3B Medication, monitoring 9. Acute CVA MRI of Brain Assessment/Plan Subjective Patient is awake and alert. Objective Patient was admitted for stroke. Patient was found to have a high grade stenosis to his left ICA. Patient will follow up with vascular surgeon for carotid stenosis. Patient was seen by cardiology. EF is 60 to 65%. Patient was seen by GI to determine if patient was a candidate for anticoagulation. Due to recent history of GI bleed and August of last year. Plan Patient to be scheduled for CLAUDY as arranged by cardiology. Monitor neuro status. Monitor EKG, continue anticoagulation and continue PPI. Plan discussed with: Patient, Other VITOR SCHULTZ NP Dec 11, 2024 19:34
--- NOTE | 2024-12-11 20:20 | DVHINCON2 ---
Date of service: Dec 11, 2024 Referring Physician Hospitalist Reason for Consultation Bladder mass, possible History of Present Illness 69 year old male presenting to the ED with a chief complaint of bilateral lower extremity weakness. Patient states that he is unable to walk on his own x 1 day because of the weakness. Patient reports also having a headache. Patient states that he previously had a stroke last August with left-sided deficits. Patient was still able to walk on his own with the aid of a cane. Patient denies any SOB, dizziness, slurred speech, or numbness. While in the emergency department the patient was evaluated by the provider, Labs, vital signs, and imagining monitored. Patient will be admitted for further evaluation and treatment. I discussed admission with the patient/family and is in agreement to treatment plan. Past Medical History Allergies and Medications Allergies: Coded Allergies: NO KNOWN ALLERGIES (Unverified , 06/03/16) Home Meds Active Scripts Sucralfate (CARAFATE) 1 Gm Tab, 1 GM OR QIDACHS for 30 Days, #120 TAB Prov:VITOR SCHULTZ NP 09/08/24 Pantoprazole Sodium Sesquihydr (Protonix) 40 Mg Tab, 40 MG PO DAILY, #30 TAB Prov:VITOR SCHULTZ NP 09/08/24 Clonidine Hydrochloride (Clonidine Hcl) 0.2 Mg Tab, 1 TAB PO BID, #60 TAB 5 Refills Prov:VITOR SCHULTZ NP 09/08/24 Atorvastatin Calcium (ATORVASTATIN CALCIUM) 80 Mg Tab, 1 TAB PO DAILY, #30 TAB 5 Refills Prov:VITOR SCHULTZ NP 09/08/24 Reported Medications Dapagliflozin Propanediol (Farxiga) 10 Mg Tab, 1 TAB PO DAILY 09/03/24 Metformin Hydrochloride (Metformin Hcl) 850 Mg Tab, 1 TAB PO BID 09/30/22 Benazepril Hcl (Benazepril Hcl) 40 Mg Tab, 1 TAB PO DAILY 09/30/22 Amlodipine Besylate (Amlodipine Besylate) 10 Mg Tab, 1 TAB PO DAILY 09/30/22 Current Medications Current Medications Medications (Trade) Dose Ordered Sig/Abilio Route PRN Reason Start Time Stop Time Status Last Admin Sodium Chloride 1,000 ml @ 60 mls/hr [id number] IV 12/09/24 11:00 12/09/24 18:56 Acetaminophen/ Hydrocodone Bitart ([place] 5/325MG Tab) 1 tab Q4HP PRN PO MODERATE PAIN (4-6 PAIN SCALE) 12/09/24 11:00 12/09/24 15:17 Temazepam (Restoril) 15 mg QHSP PRN PO FOR INSOMNIA 12/09/24 11:00 Ondansetron HCl (Zofran) 4 mg Q4HP PRN IV NAUSEA / VOMITING 12/09/24 11:00 Docusate Sodium (Colace Capsule) 100 mg BIDPRN PRN PO FOR CONSTIPATION 12/09/24 11:00 Enoxaparin Sodium (Lovenox) 40 mg DAILY SC 12/10/24 10:00 Acetaminophen (Tylenol Tablet) 650 mg Q6HP PRN PO PAIN SCALE 1-3 OR TEMP>100.4 12/09/24 11:00 Morphine Sulfate 2 mg Q4HPRN PRN IV SEVERE PAIN (7-10 PAIN SCALE) 12/09/24 11:00 Nitroglycerin (Ntrostat Sublingual) 0.4 mg Q5MINP PRN SL FOR CHEST PAIN 12/09/24 11:00 Morphine Sulfate 2 mg Q30M PRN IV FOR CHEST PAIN 12/09/24 11:00 Diagnostic Test (Pha) (Accu-Chek Comfort Curve T) 1 strip ACHS 12/09/24 11:30 12/09/24 18:57 Insulin Human Regular (InsuLIN R) ACHS SC 12/09/24 11:30 12/09/24 19:01 Dextrose 50 ml UD PRN IV Blood Sugar LESS THAN 60 12/09/24 11:00 Hydralazine HCl (Apresoline Injection) 10 mg Q6HP PRN IV SBP>170 12/09/24 13:00 12/09/24 18:55 Atorvastatin Calcium (Lipitor) 80 mg HS PO 12/09/24 22:00 Aspirin 81 mg DAILY PO 12/09/24 13:15 12/09/24 18:54 Past Surgical History Family History: Cardiovascular disease G8 BROTHER Cerebrovascular accident (CVA) G8 MOTHER FH: heart failure G8 FATHER Hypertension G8 MOTHER Allergies: Coded Allergies: NO KNOWN ALLERGIES (Unverified , 06/03/16) Home Meds Active Scripts Sucralfate (CARAFATE) 1 Gm Tab, 1 GM OR QIDACHS for 30 Days, #120 TAB Prov:KRAFT,VITOR M PLACEMENT INTERVIEWER 09/08/24 Pantoprazole Sodium Sesquihydr (Protonix) 40 Mg Tab, 40 MG PO DAILY, #30 TAB Prov:VITOR SCHULTZ PLACEMENT INTERVIEWER 09/08/24 Clonidine Hydrochloride (Clonidine Hcl) 0.2 Mg Tab, 1 TAB PO BID, #60 TAB 5 Refills Prov:VITOR SCHULTZ PLACEMENT INTERVIEWER 09/08/24 Atorvastatin Calcium (ATORVASTATIN CALCIUM) 80 Mg Tab, 1 TAB PO DAILY, #30 TAB 5 Refills Prov:VITOR SCHULTZ PLACEMENT INTERVIEWER 09/08/24 Reported Medications Dapagliflozin Propanediol (Farxiga) 10 Mg Tab, 1 TAB PO DAILY 09/03/24 Metformin Hydrochloride (Metformin Hcl) 850 Mg Tab, 1 TAB PO BID 09/30/22 Benazepril Hcl (Benazepril Hcl) 40 Mg Tab, 1 TAB PO DAILY 09/30/22 Amlodipine Besylate (Amlodipine Besylate) 10 Mg Tab, 1 TAB PO DAILY 09/30/22 Current Medications Current Medications Medications (Trade) Dose Ordered Sig/Abilio Route PRN Reason Start Time Stop Time Status Last Admin Pantoprazole Sodium (Protonix) 40 mg DAILY IV 12/11/24 10:00 12/11/24 09:20 Losartan Potassium (Cozaar Tablet) 50 mg BID PO 12/10/24 22:00 12/11/24 09:21 Clonidine HCl (Catapres Tablet) 0.2 mg BID PO 12/11/24 16:45 12/11/24 17:48 Review of Systems Constitutional: denies chills, denies fever, denies malaise Eyes: denies eye pain, denies vision change ENT: denies ear pain, denies nasal congestion, denies painful swallowing, denies voice change Cardiovascular: denies chest pain, denies edema, denies orthopnea, denies palpitations, denies paroxysmal nocturnal dyspnea Respiratory: denies cough, denies shortness of breath Gastrointestinal: denies constipation, denies diarrhea, denies nausea, denies vomiting Genitourinary: denies dysuria, denies frequent urination, denies urethral discharge Musculoskeletal: denies back pain, denies joint pain, denies muscle pain Skin: denies bruising, denies itching, denies rash Neurological: denies sensory changes Psychiatric: denies anxiety, denies depression Endocrine: denies polydipsia, denies polyuria Hematologic/Lymphatic: denies easy bleeding, denies easy bruising, denies enlarged lymph nodes Allergic/Immunologic: denies allergy, denies hives Vital Signs Vital Signs Date Time Temp Pulse Resp B/P (MAP) Pulse Ox O2 Delivery O2 Flow Rate FiO2 12/11/24 17:48 164/101 12/11/24 17:00 99.3 119 18 96 99.3 12/11/24 08:00 Room Air* 0 21 Physical Exam PATIENT: MORIS VELÁSQUEZ ACCT: [id number] UNIT: [id number] : 1955 LOC: [facility] ROOM / BED: [facility] / A AGE / SEX: 69 / M ADM STATUS: ADM IN SERVICE 0 ORDERING PHYSICIAN: ABY WILLIS MD PROCEDURE(s): KIDUS - KIDNEY REASON: mike ORDER NUMBER(s): [id number], ACCESSION NUMBER(s): [id number] INDICATION: mike TECHNIQUE: Multiple real-time sonographic images of the kidneys and bladder were obtained. COMPARISON: None FINDINGS: The right kidney measures 10 cm in length, which is normal in size. There is normal echogenicity of the right kidney. No hydronephrosis. The left kidney measures 10 cm in length, which is normal in size. There is normal echogenicity of the left kidney. No hydronephrosis. Bladder mass measuring 7.3 cm. IMPRESSION: Possible hyperechoic bladder mass. Cystoscopy recommended ATED BY: ELIZABET MEEKS MD DICTATED DATE/TIME: 12/11/24 1011 SIGNED BY: ELIZABET MEEKS MD SIGNED DATE/TIME: 12/11/24 1011 CC: Labs/Diagnostic Data Labs Test 12/11/24 17:23 12/10/24 02:30 12/09/24 18:36 12/09/24 10:28 Range/Units POC Glucose 260 H 70-106 mg/dl White Blood Count 7.3 # 4.4-10.8 10^3/uL Red Blood Count 4.78 4.5-5.90 10^6/uL Hemoglobin 13.2 L 13.5-17.5 g/dL Hematocrit 41.0 41.0-53.0 % Mean Corpuscular Volume 85.6 80.0-100.0 fL Mean Corpuscular Hemoglobin 27.7 L 28.0-32.0 pg Mean Corpuscular Hemoglobin Concent 32.3 32.0-36.0 g/dL Red Cell Distribution Width 17.7 H 11.8-14.3 % Platelet Count 235 140-450 10^3/uL Mean Platelet Volume 8.9 6.9-10.8 fL Neutrophils (%) (Auto) 56.6 37.0-80.0 % Lymphocytes (%) (Auto) 33.8 10.0-50.0 % Monocytes (%) (Auto) 8.5 0.0-12.0 % Eosinophils (%) (Auto) 0.6 0.0-7.0 % Basophils (%) (Auto) 0.5 0.0-2.0 % Neutrophils # (Auto) 4.1 1.6-8.6 10 ^3/uL Lymphocytes # (Auto) 2.5 0.4-5.4 10 ^3/uL Monocytes # (Auto) 0.6 0-1.3 10 ^3/uL Eosinophils # (Auto) 0 0-0.8 10 ^3/uL Basophils # (Auto) 0 0-0.2 10 ^3/uL Nucleated Red Blood Cells 0.1 % Sodium Level 136 136-145 mmol/L Potassium Level 4.2 3.5-5.1 mmol/L Chloride Level 102 98-107 mmol/L Carbon Dioxide Level 23 20-31 mmol/L Anion Gap 11 5-15 Blood Urea Nitrogen 16 9-23 mg/dL Creatinine 1.75 H 0.700-1.30 mg/dL Glomerular Filtration Rate Calc 42 >90 mL/min BUN/Creatinine Ratio 9.1 L 10.0-20.0 Serum Glucose 248 H 74-106 mg/dL Calcium Level 9.6 8.7-10.4 mg/dL Total Bilirubin 0.4 0.2-1.0 mg/dL Aspartate Amino Transferase (AST) 18 13-40 U/L Alanine Aminotransferase (ALT) 15 7-40 U/L Alkaline Phosphatase 85 46-116 U/L Total Protein 7.2 5.7-8.2 g/dL Albumin 4.2 3.2-4.8 g/dL Urine Color Light-orange Yellow Urine Clarity Turbid H Clear Urine pH 6.5 5.0-9.0 Urine Specific [place] 1.019 1.001-1.035 Urine Protein 3+ H Negative Urine Ketones Negative Negative Urine Blood 1+ H Negative /uL Urine Nitrite Negative Negative Urine Bilirubin Negative Negative Urine Urobilinogen Normal Negative mg/dL Urine Leukocyte Esterase 3+ Negative /uL Urine RBC 5 0 - 3 /hpf Urine WBC Clumps Present None Seen /hpf Urine Microscopic WBC 314 H 0-3 /HPF Urine Squamous Epithelial Cells Few <5 /hpf Urine Bacteria None seen None Seen /hpf Urine Glucose 3+ H Normal mg/dL Hemoglobin A1c 7.6 H <5.7 % A1C Test 12/09/24 09:28 Range/Units Troponin I High Sensitivity 3 L </=54 ng/L Triglycerides Level 172 H < 150 mg/dL Cholesterol Level 277 H < 200 mg/dL LDL Cholesterol 203 H < 100 mg/dL HDL Cholesterol 46 40-59 mg/dL PATIENT: MORIS VELÁSQUEZ ACCT: [id number] UNIT: [id number] : 1955 LOC: ER ROOM / BED: / AGE / SEX: 69 / M ADM STATUS: REG ER SERVICE [id number] ORDERING PHYSICIAN: JULIANE MARIO MD PROCEDURE(s): ABPLIV - CT AB PEL WITH IV CON ONLY REASON: Gi Bleed ORDER NUMBER(s): [id number], ACCESSION NUMBER(s): [id number] Examination: ABPLIV CLINICAL INDICATION: Gi Bleed COMPARISON: None. CONTRAST USED: Intravenous. TECHNIQUE: A post-contrast CT study of the abdomen and pelvis was performed after intravenous contrast administration. The examination was conducted using 5 mm thin slices, following ALARA principles (As Low As Reasonably Achievable). Multiplanar reconstructions were obtained. FINDINGS: CT Abdomen: Lung Base: Linear fibrotic bands in the bilateral lower lobes. Small 5 mm calcified granuloma in the superior segment of the right lower lobe. No follow- up indicated. Liver: Mild fatty infiltration. Normal size and attenuation. Portal venous radicles appear normal. No intrahepatic biliary ductal dilatation. Gallbladder and Biliary System: Gallbladder appears unremarkable with no intraluminal pathology. Common bile duct is not dilated. Pancreas: Normal in size and shape with no focal lesions. Peripancreatic fat planes are clear. Spleen: Tiny 1-2 mm calcified granulomas noted. No other focal abnormalities. Adrenal Glands: Bilateral adrenal glands are unremarkable. Kidneys: Left kidney with a small 10 mm cortical cyst in the interpolar region. No septations or calcifications. No hydronephrosis or renal calculi. Vessels: Scattered atherosclerotic calcifications in the infrarenal aorta, bilateral common iliac arteries, and origin of the renal arteries. Aorta, IVC, and mesenteric vessels appear unremarkable. Stomach and Bowel: Large hiatal hernia measuring 12.1 cm, containing almost the entire stomach. Large bowel loops distended with moderate fecal residue. Fecal impaction in the distal sigmoid colon and rectum, indicative of constipation. No diverticulosis or diverticulitis. CT Pelvis: Appendix: Visualized and appears unremarkable. Colon: Large bowel loops are distended with fecal matter, consistent with constipation. Scattered diverticulosis of the sigmoid colon without evidence of diverticulitis. Bladder: Normally distended, unremarkable with no intraluminal pathology. Prostate and Seminal Vesicles: Borderline prostatomegaly. Otherwise, unremarkable. Hernias: Small omental fat-containing right inguinal hernia. Small omental fat-containing umbilical hernia measuring 18 x 12 mm. Lymph Nodes and Fluid Collections: No significant retroperitoneal or pelvic lymphadenopathy. No abnormal fluid collections. Skeletal System: Mild dextroscoliosis of the lumbar spine. Vacuum disc phenomena at L3-L4, L4-L5, and L5-S1 levels with multilevel degen erative facet arthropathy. Degenerative changes in bilateral sacroiliac joints and superolateral hip joints. Mild osteopenia. IMPRESSION: 1. Gastrointestinal Findings: Large hiatal hernia (12.1 cm) containing almost the entire stomach. 2. Moderate fecal residue in the large bowel loops with fecal impaction in the distal sigmoid colon and rectum. Scattered diverticulosis of the sigmoid colon without evidence of diverticulitis. 3. Liver and Spleen: Mild fatty infiltration of the liver. 4. Tiny calcified granulomas in the spleen. 5. Renal Findings: Small 10 mm cortical cyst in the left kidney interpolar region. No concerning features noted. 6. Hernias: Small omental fat-containing right inguinal hernia. 7. Small omental fat-containing umbilical hernia (18 x 12 mm). 8. Spinal Findings: Mild lumbar dextroscoliosis with vacuum disc changes at L3- L4, L4-L5, and L5-S1. 9. Multilevel degenerative facet arthropathy. 10. Degenerative changes in the bilateral sacroiliac and hip joints. 11. Pulmonary Findings: Linear fibrotic bands in the bilateral lower lobes. 2. Small calcified granuloma in the right lower lobe, with no follow-up required. Electronically Signed 09/03/2024 05:08 Kellie Joseph ATED BY: BEN GREENE MD DICTATED DATE/TIME: 09/03/24507 SIGNED BY: BEN GREENE MD SIGNED DATE/TIME: 09/03/24507 CC: Assessment Bladder mass reported on US 12/11/[address] Scan in August 2024 did not show bladder mass Plan/Recommendation Diagnostic cystoscopy TBA Plan discussed with: Patient, Other MISSY SHETTY MD Dec 11, 2024 20:20
--- NOTE | 2024-12-11 23:51 | DVHPN2 ---
Progress Note - Dictate Date Seen: Dec 11, 2024 Medical Necessity Reason Pt with a Central, PICC or Fol: No Subjective Mr. Goldsmith is a 69 years old right-handed gentleman with a history of hypertension, diabetes, dyslipidemia, he came to the [facility] on 12/09/2024 with a chief complaint of bilateral leg weakness. At that time, he is alert, fully oriented, he provided the following history I saw him on 08/20/23 for syncope, 09/03/24 for metabolic encephalopathy (MRI: acute strokes) I have seen and examined the patient, I have discussed with his nurse, he is alert, oriented, no new problems Urinalysis, 12/09/2024: WBC: 314, urine leukocyte esterase: 3+ WBC/HB/PLT/MCV, 12/09/2024: 4/12.8/207/85.3 HGB A1c, 07/2023: 6.1, 12/09/2024: 7.6 BUN/CR, 09/03/2024: 22/1.81, 12/09/2024: 12/1.62 TG/HDL/LDL/HDL, 12/09/2024: 172/277/203/46 Vitamin B12, 04/2024: 622 TSH, 04/2020 4:2.29 Echocardiogram, 12/10/2024: Left ventricle: Concentric left ventricular hypertrophy was seen. LVEF was 60-65%. There was no gross wall motion abnormality. Right ventricle was normal sized with normal systolic function. Left atrium was dilated. Right atrium was normal sized. Aortic valve: Aortic valve was trileaflet. There was no aortic insufficiency/stenosis. There was trivial mitral regurgitation. There was no tricuspid regurgitation. There was no pulmonary valve insufficiency. There was no pericardial effusion. As there was no good tricuspid regurgitation jet, right ventricular systolic pressure could not be estimated. There was no echocardiographic evidence for pulmonary hypertension. IVC was normal sized with normal respiratory variation MRI head, 08/03/2023: No acute findings. Small vessel chronic ischemic changes MRI head, 09/04/2024: Few small foci of acute ischemia, suspect embolic infarcts. Clinical correlation and continued follow-up is recommended. Consider further evaluation with CTA or MRA of the head and neck MRI head, 12/09/2024: 1. Small foci of acute ischemia in the right thalamus and left parietal cortex. No intracranial hemorrhage. 2. Extensive chronic microvascular ischemic changes, advanced for patient's age. MRA brain, neck, 12/09/2024: 1. High-grade stenosis in the left intracranial ICA. 2. Short-segment occlusion of distal M2 segment of the left MCA. 3. Short- segment moderate stenosis of the proximal A2 segment of the left GILMA. 4. Short- segment occlusion of A3 segment of the right GILMA. 5. Moderate stenosis of the proximal basilar artery. 6. Hypoplastic right vertebral artery short-segment foci of high-grade stenosis and occlusion of the V3 segment vital signs Vital Sign Date Time Temp Pulse Resp B/P (MAP) Pulse Ox O2 Delivery O2 Flow Rate FiO2 12/11/24 22:35 151/103 12/11/24 21:00 98.8 104 18 97 98.8 12/11/24 20:00 Room Air* 0 21 Total Intake and Output 12/10/24 12/10/24 12/11/24 15:00 23:00 07:00 Intake Total 300 ml 300 ml Output Total 350 ml Balance 300 ml -50 ml medications Current Medications Medications Dose Ordered Sig/Abilio Route Start Time Stop Time Status Last Admin Dose Admin Acetaminophen/ Hydrocodone Bitart 1 tab Q4HP PRN PO 12/09/24 11:00 12/09/24 21:12 1 TAB Temazepam 15 mg QHSP PRN PO 12/09/24 11:00 Ondansetron HCl 4 mg Q4HP PRN IV 12/09/24 11:00 12/10/24 16:44 4 MG Docusate Sodium 100 mg BIDPRN PRN PO 12/09/24 11:00 Enoxaparin Sodium 40 mg DAILY SC 12/10/24 10:00 12/11/24 09:29 40 MG Acetaminophen 650 mg Q6HP PRN PO 12/09/24 11:00 Morphine Sulfate 2 mg Q4HPRN PRN IV 12/09/24 11:00 Nitroglycerin 0.4 mg Q5MINP PRN SL 12/09/24 11:00 Morphine Sulfate 2 mg Q30M PRN IV 12/09/24 11:00 Diagnostic Test (Pha) 1 strip ACHS 12/09/24 11:30 12/11/24 22:00 1 STRIP Insulin Human Regular ACHS SC 12/09/24 11:30 12/11/24 22:00 3 UNITS Dextrose 50 ml UD PRN IV 12/09/24 11:00 Hydralazine HCl 10 mg Q6HP PRN IV 12/09/24 13:00 12/11/24 13:31 10 MG Atorvastatin Calcium 80 mg HS PO 12/09/24 22:00 12/11/24 22:35 80 MG Aspirin 81 mg DAILY PO 12/09/24 13:15 12/11/24 09:21 81 MG Pantoprazole Sodium 40 mg DAILY IV 12/11/24 10:00 12/11/24 09:20 40 MG Losartan Potassium 50 mg BID PO 12/10/24 22:00 12/11/24 22:35 50 MG Clonidine HCl 0.2 mg BID PO 12/11/24 16:45 12/11/24 22:35 0.2 MG objective General: the patient is well developed and nourished. No acute distress. MENTAL STATUS: Subjective SPEECH, LANGUAGE, HIGHER CORTICAL FUNCTION: no aphasia or dysathria. CRANIAL NERVES: Intact visual godfrey to confrontation. Pupils are equal, round and reactive. EOMs full and conjugate. No nystagmus. Facial sensation intact in all three divisions bilaterally. Mandibular strength intact. Facial muscles symmetrical and strength intact. SENSATION: Sensation to touch and pinprick is normal. MOTOR: Normal tone in the upper and lower extremity. Normal muscle bulk. No fasciculations. No abnormal movements or posturing. Muscle strength of the major groups in the upper extremities is 5/5. Muscle strength of the major groups in the extremities is right: 5/5, left 4/5. REFLEXES: Deep tendon reflexes are symmetrical. No pathological reflexes. CEREBELLAR/COORDINATION: Finger to nose is normal bilaterally. GAIT/STATION: deferred laboratory and microbiology Laboratory Tests 12/10/24 02:30 Test 12/10/24 02:30 Range/Units Serum Glucose 248 H 74-106 mg/dL Problem List Acute strokes Chronic stroke Left ICA high-grade stenosis History of GI bleeding with syncope Assessment/Plan Monitoring Supportive treatment Telemetry CLAUDY Syncope precautions discussed GI consultation Re: History GI bleeding with syncope, clearance for a ntiplatelet agent Further address left high-grade ICA stenosis as outpatient This medical document was created using an electronic medical record system with [employer] system. Although this document has been carefully reviewed, there may still be some phonetic and typographical errors. These areas are purely typographical due to imperfections of the software programs, and do not reflect any compromise in the patient's medical care. Prognosis poor Plan discussed with: Other GRACIE UMAÑA MD Dec 11, 2024 23:51
[2024-12-12] VITALS (18 sets, daily range): BP systolic 110–253; BP diastolic 64–163; PULSE 67–138; RESP 17–22; TEMP 97.9–99.4; O2SAT 93–100
--- NOTE | 2024-12-12 06:01 | DVHPN2 ---
Progress Note - Dictate Date Seen: Dec 12, 2024 Medical Necessity Reason Pt with a Central, PICC or Fol: No vital signs Vital Sign Date Time Temp Pulse Resp B/P (MAP) Pulse Ox O2 Delivery O2 Flow Rate FiO2 12/12/24 01:00 98.3 88 18 157/95 (115) 95 98.3 12/11/24 20:00 Room Air* 0 21 Total Intake and Output 12/11/24 12/11/24 12/12/24 15:00 23:00 07:00 Intake Total 600 ml Output Total 300 ml Balance 300 ml medications Current Medications Medications Dose Ordered Sig/Abilio Route Start Time Stop Time Status Last Admin Dose Admin Acetaminophen/ Hydrocodone Bitart 1 tab Q4HP PRN PO 12/09/24 11:00 12/09/24 21:12 1 TAB Temazepam 15 mg QHSP PRN PO 12/09/24 11:00 Ondansetron HCl 4 mg Q4HP PRN IV 12/09/24 11:00 12/10/24 16:44 4 MG Docusate Sodium 100 mg BIDPRN PRN PO 12/09/24 11:00 Enoxaparin Sodium 40 mg DAILY SC 12/10/24 10:00 12/11/24 09:29 40 MG Acetaminophen 650 mg Q6HP PRN PO 12/09/24 11:00 Morphine Sulfate 2 mg Q4HPRN PRN IV 12/09/24 11:00 Nitroglycerin 0.4 mg Q5MINP PRN SL 12/09/24 11:00 Morphine Sulfate 2 mg Q30M PRN IV 12/09/24 11:00 Diagnostic Test (Pha) 1 strip ACHS 12/09/24 11:30 12/11/24 22:00 1 STRIP Insulin Human Regular ACHS SC 12/09/24 11:30 12/11/24 22:00 3 UNITS Dextrose 50 ml UD PRN IV 12/09/24 11:00 Hydralazine HCl 10 mg Q6HP PRN IV 12/09/24 13:00 12/11/24 13:31 10 MG Atorvastatin Calcium 80 mg HS PO 12/09/24 22:00 12/11/24 22:35 80 MG Aspirin 81 mg DAILY PO 12/09/24 13:15 12/11/24 09:21 81 MG Pantoprazole Sodium 40 mg DAILY IV 12/11/24 10:00 12/11/24 09:20 40 MG Losartan Potassium 50 mg BID PO 12/10/24 22:00 12/11/24 22:35 50 MG Clonidine HCl 0.2 mg BID PO 12/11/24 16:45 12/11/24 22:35 0.2 MG laboratory and microbiology Laboratory Tests 12/10/24 02:30 Test 12/10/24 02:30 Range/Units Serum Glucose 248 H 74-106 mg/dL Assessment/Plan Patient is a 69-year-old gentleman who presented to the hospital for worsening bilateral lower extremity weakness and swelling. He did have some headaches. He mentions that he has not been able to walk for the past 2 days. It is of note that the patient did have a CVA back in August 2024. Since that time he was able to walk with cane but for the past 2 days he is unable to. Cardiology was involved for cardiac aspects of care. He denies chest pains. He denies shortness of breath. He denies loss of consciousness. He denies dizziness. Morbidly obese. Not in acute distress. Not using accessory muscles of breathing. No JVD. Speaks slowly. Mucosa is pink and wet. No goiter. No carotid bruit. Lungs are clear to auscultation. Cardiac: Regular, no thrill/gallop. Abdomen is soft. There is no gross mass. Bowel sound is positive. Dorsalis pedis is 2+ bilateral Past medical history includes hypertension, diabetes mellitus, morbid obesity, history of CVA, CKD, old history of GI bleeding anemia, GERD, hyperlipidemia, hiatal hernia and old history of hepatitis-C. Does have history of smoking. Denies alcohol and drug abuse. Family history is positive for hypertension/CVA and heart murmur Echocardiogram of August 03, 2023 had reported mild concentric left ventricular hypertrophy, aortic sclerosis, ejection fraction of 65-70% and no vegetation Echocardiogram of August 2024 revealed ejection fraction of 60-65% Creatinine: 1.61 - 1.75 Potassium: 5.0 - 4.2 Troponin (high sensitive): 3 LDL: 203 CT of the head reported: IMPRESSION: 1. No acute intracranial process. 2. Moderate chronic microvascular ischemic changes. MRI of the brain revealed: IMPRESSION: 1. Small foci of acute ischemia in the right thalamus and left parietal cortex. No intracranial hemorrhage. 2. Extensive chronic microvascular ischemic changes, advanced for patient's age. MRI/MRA of the brain reported: IMPRESSION: 1. High-grade stenosis in the left intracranial ICA. 2. Short-segment occlusion of distal M2 segment of the left MCA. 3. Short-segment moderate stenosis of the proximal A2 segment of the left GILMA. 4. Short-segment occlusion of A3 segment of the right GILMA. 5. Moderate stenosis of the proximal basilar artery. 6. Hypoplastic right vertebral artery short-segment foci of high-grade stenosis and occlusion of the V3 segment. Critical Result: Large vessel occlusion Chest xry reported: IMPRESSION: No evidence of acute disease in the chest. Renal ultrasound revealed: FINDINGS: The right kidney measures 10 cm in length, which is normal in size. There is normal echogenicity of the right kidney. No hydronephrosis. The left kidney measures 10 cm in length, which is normal in size. There is normal echogenicity of the left kidney. No hydronephrosis. Bladder mass measuring 7.3 cm. IMPRESSION: Possible hyperechoic bladder mass. Cystoscopy recommended EKG reveals sinus rhythm with no specific ST-T changes. Tele reveals sinus rhythm Echocardiogram reported: Left ventricle: Concentric left ventricular hypertrophy was seen. LVEF was 60-65%. There was no gross wall motion abnormality. Right ventricle was normal sized with normal systolic function. Left atrium was dilated. Right atrium was normal sized. Aortic valve: Aortic valve was trileaflet. There was no aortic insufficiency/stenosis. There was trivial mitral regurgitation. There was no tricuspid regurgitation. There was no pulmonary valve insufficiency. There was no pericardial effusion. As there was no good tricuspid regurgitation jet, right ventricular systolic pressure could not be estimated. There was no echocardiographic evidence for pulmonary hypertension. IVC was normal sized with normal respiratory variation. Patient is a 69-year-old gentleman who presented with lower extremity weakness. Imaging/CT/MRI has revealed CVA. Acute coronary syndrome is not considered at this point. Cardiac etiology for presentation is less likely. CVA, acute Morbid obesity Diabetes mellitus Hypertension Hiatal hernia GI bleeding, history of CKD Kidney mass Cardiac suggestion for management: Manage on telemetry Follow-up electrolytes and kidney function tests and correct abnormalities Aspirin daily High potency statin Management / goal of blood pressure as per Neurology Will arrange CLAUDY as per Neurology (11:00 AM today) Urology evaluation is suggested Neurology follow up Further evaluation and management depends on the above and clinical course A total of 55 minutes was spent reviewing the patient record, examining the patient, making a diagnostic and therapeutic plan, discussing this plan with medical personnel, following up on diagnostic studies and following the patient for clinical stability excluding any and all procedures. At least 50% of this time was spent in direct, [id number] contact. Thank you for allowing me to participate in this patient's care. Further recommendations will depend on patient's clinical course. Please do not hesitate to contact me if you have any questions or concerns. This medical document was created using electronic medical record system with [employer] computerized dictation system. Although this document has been carefully reviewed, there may still be some phonetic and typographical errors. These areas are purely typographical due to the imperfection of the software programs, and do not reflect any compromise in the patient's medical care. Plan discussed with: Patient, Other (nurse) NEVAEH FALCON MD Dec 12, 2024 06:01
[2024-12-12 07:36] LABS: Basophils # (auto) 0 10 ^3/uL (0-0.2); Basophils % (auto) 0.7 % (0.0-2.0); Eosinophils # (auto) 0.1 10 ^3/uL (0-0.8); Eosinophils % (auto) 1.3 % (0.0-7.0); Lymphocytes % (auto) 36.6 % (10.0-50.0); Mean Corpuscular Hemoglobin 27.4 pg (28.0-32.0); Mean Corpuscular Hgb Conc. 31.7 g/dL (32.0-36.0); Mean Corpuscular Volume 86.4 fL (80.0-100.0); Monocytes # (auto) 0.7 10 ^3/uL (0-1.3); Monocytes % (auto) 11.9 % (0.0-12.0); Neutrophils # (auto) 2.7 10 ^3/uL (1.6-8.6); Neutrophils % (auto) 49.5 % (37.0-80.0); Nucleated Red Blood Cells % 0.3 %; Platelet Count (auto) 171 10^3/uL (140-450); Red Blood Cells 4.75 10^6/uL (4.5-5.90); Red Cell Distribution Width 17.7 % (11.8-14.3); White Blood Cell 5.5 10^3/uL (4.4-10.8)
[2024-12-12 07:46] LABS: Potassium 4.7 mmol/L (3.5-5.1); Sodium 139 mmol/L (136-145)
[2024-12-12 07:47] LABS: Anion Gap 8 (5-15); Calcium 9.5 mg/dL (8.7-10.4); Carbon Dioxide 24 mmol/L (20-31)
[2024-12-12 07:52] LABS: BUN/Creatinine Ratio 9.2 (10.0-20.0); Blood Urea Nitrogen 15 mg/dL (9-23)
[2024-12-12 07:56] LABS: Chloride 107 mmol/L (98-107); Glucose 152 mg/dL (74-106)
--- NOTE | 2024-12-12 10:41 | DVHPN2 ---
Progress Note - Dictate Date Seen: Dec 12, 2024 Medical Necessity Reason Pt with a Central, PICC or Fol: No vital signs Vital Sign Date Time Temp Pulse Resp B/P (MAP) Pulse Ox O2 Delivery O2 Flow Rate FiO2 12/12/24 10:03 141/84 12/12/24 08:40 98.0 75 17 97 98.0 12/11/24 20:00 Room Air* 0 21 Total Intake and Output 12/11/24 12/11/24 12/12/24 15:00 23:00 07:00 Intake Total 600 ml 300 ml Output Total 300 ml 500 ml Balance 300 ml -200 ml medications Current Medications Medications Dose Ordered Sig/Abilio Route Start Time Stop Time Status Last Admin Dose Admin Acetaminophen/ Hydrocodone Bitart 1 tab Q4HP PRN PO 12/09/24 11:00 12/09/24 21:12 1 TAB Temazepam 15 mg QHSP PRN PO 12/09/24 11:00 Ondansetron HCl 4 mg Q4HP PRN IV 12/09/24 11:00 12/10/24 16:44 4 MG Docusate Sodium 100 mg BIDPRN PRN PO 12/09/24 11:00 Enoxaparin Sodium 40 mg DAILY SC 12/10/24 10:00 12/11/24 09:29 40 MG Acetaminophen 650 mg Q6HP PRN PO 12/09/24 11:00 Morphine Sulfate 2 mg Q4HPRN PRN IV 12/09/24 11:00 Nitroglycerin 0.4 mg Q5MINP PRN SL 12/09/24 11:00 Morphine Sulfate 2 mg Q30M PRN IV 12/09/24 11:00 Diagnostic Test (Pha) 1 strip ACHS 12/09/24 11:30 12/12/24 06:32 1 STRIP Insulin Human Regular ACHS SC 12/09/24 11:30 12/12/24 06:54 2 UNITS Dextrose 50 ml UD PRN IV 12/09/24 11:00 Hydralazine HCl 10 mg Q6HP PRN IV 12/09/24 13:00 12/11/24 13:31 10 MG Atorvastatin Calcium 80 mg HS PO 12/09/24 22:00 12/11/24 22:35 80 MG Aspirin 81 mg DAILY PO 12/09/24 13:15 12/11/24 09:21 81 MG Pantoprazole Sodium 40 mg DAILY IV 12/11/24 10:00 12/11/24 09:20 40 MG Losartan Potassium 50 mg BID PO 12/10/24 22:00 12/12/24 10:03 50 MG Clonidine HCl 0.2 mg BID PO 12/11/24 16:45 12/11/24 22:35 0.2 MG objective General Appearance: alert, no distress HEENT: EOMI, PERRLA, normal external inspect of ears, no icterus, no nasal drainage Neck: no carotid bruit, no jugular venous distention (JVD), no lymphadenopathy Chest: normal thorax Respiratory: clear to auscultation, normal air movement Cardiovascular: regular rate and rhythm, no diastolic murmur, no jugular venous distention (JVD), no rub, no systolic murmur Abdominal: soft, no hepatomegaly, no mass, no splenomegaly, no tenderness Musculoskeletal: no joint tenderness, no swelling Extremities: normal pulses, no calf tenderness, no clubbing, no cyanosis, no edema Skin: no bruising, no jaundice, no rash Neurological: alert, No focal deficit laboratory and microbiology Laboratory Tests 12/12/24 07:15 Test 12/12/24 07:15 Range/Units Serum Glucose 152 H 74-106 mg/dL Problem List 1. Hypertensive urgency Cardiology conult 2. Bilateral lower extremity weakness Medication, monitoring 3. Obesity Diet education, monitor 4. DM II w/ hyperglycemia Insulin Sliding Scale 5. HLD Medication, monitoring 6. GERD Medication, monitoring 7. CVA with residual defects Neurology consult 8. CKD 3B Medication, monitoring 9. Acute CVA MRI of Brain Assessment/Plan Subjective Patient was not in room during assessment. Objective Patient s/p cystoscopy related to bladder mass. Findings were ureteral stenosis. Patient has resolving MARY. Patient has a CVA. Patient was seen by cardiology as well as neurology. Patient was found to have acute mental status change from surgery. Most likely related to anesthesia. CT imaging had no acute findings. MRI is pending. Plan Consult with neurology. Plan for MRI. Monitor neurostatus. Plan discussed with: Patient, Other VITOR SCHULTZ NP Dec 12, 2024 10:41
--- NOTE | 2024-12-12 10:54 | DVHOP2 ---
Operative Report Trans-Esophageal Echocardiogram PROCEDURE REPORT Date of Service: 12/12/2024 Geriatric Social Worker: Nevaeh Falcon MD PROCEDURE PERFORMED: Transesophageal echocardiogram, conscious sedation administration and supervision, more than 15 minutes. Intra cardiac bubble study. PREOPERATIVE DIAGNOSES: r/o cardiac source for CVA. DESCRIPTION OF PROCEDURE: The patient signed informed consent understanding risks, benefits and alternatives of the procedure, he wished to proceed. The patient was given 15 mL of oral viscous lidocaine. He was placed in a left lateral decubitus position and conscious sedation was administered per lab director protocol (2 mg of Versed and 50 mcg of Fentanyl). I administered a bite block into his mouth and a CLAUDY probe into the mid esophagus without any difficulties or complications. Multiple planar images were obtained. Bubble study was also performed. At the completion of procedure, CLAUDY probe was removed and there were no immediate complications. Vitals signs were stable throughout the procedure. FINDINGS: 1. Left ventricle: Mild concentrated Left ventricular hypertrophy was seen. LVEF was 65%. There was no gross wall motion abnormality seen. 2. Right ventricle: Normal RV size with normal systolic function. 3. Left atrium: LA mildly enlarged 4. Right atrium: RA was normal 5. Mitral valve: Trace Mitral regurgitation, no significant stenosis, normal functioning valve 6. Left atrial appendage: No evidence of thrombus. 7. Aortic valve: Aortic valve was trileaflet. There was no Aortic stenosis/Insufficiency 8. Pulmonic valve: Trivial pulmonic insufficiency. No significant stenosis. 9. Tricuspid valve: Trace tricuspid regurgitation. 10. Interatrial septum: Negative color flow for shunt was observed. Bubble study was negative (normal) 11. Pericardium: No significant effusion. 12. Thoracic aorta: No significant plaquing. 13 No vegetation was seen. No Cardiac source for Emboli was seen. NEVAEH FALCON MD Dec 12, 2024 10:54
--- NOTE | 2024-12-12 12:11 | DVHPN2 ---
Progress Note Date Seen: Dec 12, 2024 Resident Creating Document: FADY RAMÍREZ RESIDENT Medical Necessity Reason Pt with a Central, PICC or Fol: No Subjective Patient reports: No new complaints Changes from previous H/P or p: No Changes Objective vital signs Vital Sign Date Time Temp Pulse Resp B/P (MAP) Pulse Ox O2 Delivery O2 Flow Rate FiO2 12/12/24 11:20 91 20 167/104 (125) 98 12/12/24 08:40 98.0 98.0 12/11/24 20:00 Room Air* 0 21 Total Intake and Output 12/11/24 12/11/24 12/12/24 15:00 23:00 07:00 Intake Total 600 ml 300 ml Output Total 300 ml 500 ml Balance 300 ml -200 ml medications Current Medications Medications Dose Ordered Sig/Abilio Route Start Time Stop Time Status Last Admin Dose Admin Acetaminophen/ Hydrocodone Bitart 1 tab Q4HP PRN PO 12/09/24 11:00 12/09/24 21:12 1 TAB Temazepam 15 mg QHSP PRN PO 12/09/24 11:00 Ondansetron HCl 4 mg Q4HP PRN IV 12/09/24 11:00 12/10/24 16:44 4 MG Docusate Sodium 100 mg BIDPRN PRN PO 12/09/24 11:00 Enoxaparin Sodium 40 mg DAILY SC 12/10/24 10:00 12/11/24 09:29 40 MG Acetaminophen 650 mg Q6HP PRN PO 12/09/24 11:00 Morphine Sulfate 2 mg Q4HPRN PRN IV 12/09/24 11:00 Nitroglycerin 0.4 mg Q5MINP PRN SL 12/09/24 11:00 Morphine Sulfate 2 mg Q30M PRN IV 12/09/24 11:00 Diagnostic Test (Pha) 1 strip ACHS 12/09/24 11:30 12/12/24 06:32 1 STRIP Insulin Human Regular ACHS SC 12/09/24 11:30 12/12/24 06:54 2 UNITS Dextrose 50 ml UD PRN IV 12/09/24 11:00 Hydralazine HCl 10 mg Q6HP PRN IV 12/09/24 13:00 12/11/24 13:31 10 MG Atorvastatin Calcium 80 mg HS PO 12/09/24 22:00 12/11/24 22:35 80 MG Aspirin 81 mg DAILY PO 12/09/24 13:15 12/11/24 09:21 81 MG Pantoprazole Sodium 40 mg DAILY IV 12/11/24 10:00 12/11/24 09:20 40 MG Losartan Potassium 50 mg BID PO 12/10/24 22:00 12/12/24 10:03 50 MG Clonidine HCl 0.2 mg BID PO 12/11/24 16:45 12/12/24 10:00 0.2 MG Examination: GENERAL:Normal, HEENT:Normal, NECK:Normal, LUNGS:Normal, CVS:Normal, ABDOMEN:Normal, MSK:Normal, NEURO:Abnormal laboratory and microbiology Laboratory Tests 12/12/24 07:15 Test 12/12/24 07:15 Range/Units Serum Glucose 152 H 74-106 mg/dL Problem List/Assessment/Plan Problem List/Assessment/Plan CVA Left ICA high-grade stenosis History of GI bleeding Hiatal hernia Gastritis Colon polyp Plan/recommendation EGD (09/05/24 ) 1. Large hiatal hernia about 10-12 cm with organoaxial rotation but no obstruction or significant volvulus Short-segment Rivera's but no evidence of acute esophagitis or ulceration 2. Mild gastritis within hiatal hernia sac and in the stomach 3. Slight difficulty in entering into the duodenal because of the large hiatal hernia but otherwise normal examination up to the 2nd and 3rd part of the duodenal -Continue Protonix 40 mg p.o. daily -Continue Carafate 1 g p.o. twice daily. -Patient cleared to start antiplatelets treatment -Iron supplements recommended -GI team on standby if any bleeding Plan discussed with: Other (Rn) FADY RAMÍREZ RESIDENT Dec 12, 2024 12:11
--- NOTE | 2024-12-12 13:14 | DVHPN2 ---
Progress Note Date Seen: Dec 12, 2024 Medical Necessity Reason Pt with a Central, PICC or Fol: No Subjective Patient reports: No new complaints Other Systems: Patient seen and examined by myself today in follow-up Objective vital signs Vital Sign Date Time Temp Pulse Resp B/P (MAP) Pulse Ox O2 Delivery O2 Flow Rate FiO2 12/12/24 11:20 91 20 167/104 (125) 98 12/12/24 08:40 98.0 98.0 12/12/24 08:00 Room Air* 0 21 Total Intake and Output 12/11/24 12/11/24 12/12/24 15:00 23:00 07:00 Intake Total 600 ml 300 ml Output Total 300 ml 500 ml Balance 300 ml -200 ml medications Current Medications Medications Dose Ordered Sig/Abilio Route Start Time Stop Time Status Last Admin Dose Admin Acetaminophen/ Hydrocodone Bitart 1 tab Q4HP PRN PO 12/09/24 11:00 12/09/24 21:12 1 TAB Temazepam 15 mg QHSP PRN PO 12/09/24 11:00 Ondansetron HCl 4 mg Q4HP PRN IV 12/09/24 11:00 12/10/24 16:44 4 MG Docusate Sodium 100 mg BIDPRN PRN PO 12/09/24 11:00 Enoxaparin Sodium 40 mg DAILY SC 12/10/24 10:00 12/11/24 09:29 40 MG Acetaminophen 650 mg Q6HP PRN PO 12/09/24 11:00 Morphine Sulfate 2 mg Q4HPRN PRN IV 12/09/24 11:00 Nitroglycerin 0.4 mg Q5MINP PRN SL 12/09/24 11:00 Morphine Sulfate 2 mg Q30M PRN IV 12/09/24 11:00 Diagnostic Test (Pha) 1 strip ACHS 12/09/24 11:30 12/12/24 06:32 1 STRIP Insulin Human Regular ACHS SC 12/09/24 11:30 12/12/24 06:54 2 UNITS Dextrose 50 ml UD PRN IV 12/09/24 11:00 Hydralazine HCl 10 mg Q6HP PRN IV 12/09/24 13:00 12/11/24 13:31 10 MG Atorvastatin Calcium 80 mg HS PO 12/09/24 22:00 12/11/24 22:35 80 MG Aspirin 81 mg DAILY PO 12/09/24 13:15 12/11/24 09:21 81 MG Pantoprazole Sodium 40 mg DAILY IV 12/11/24 10:00 12/11/24 09:20 40 MG Losartan Potassium 50 mg BID PO 12/10/24 22:00 12/12/24 10:03 50 MG Clonidine HCl 0.2 mg BID PO 12/11/24 16:45 12/12/24 10:00 0.2 MG Examination: LUNGS:Normal, CVS:Normal, MSK:Normal laboratory and microbiology Laboratory Tests 12/12/24 07:15 Test 12/12/24 07:15 Range/Units Serum Glucose 152 H 74-106 mg/dL Problem List/Assessment/Plan Problem List/Assessment/Plan Acute kidney injury on Chronic kidney disease IIIb hemodynamic mediated in the setting of hypertensive urgency Hypertensive urgency secondary to noncompliance Acute CVA Diabetes Obesity Proteinuria bladder mass Recommendations Kidney function slowly improving Increased urine output Kidney ultrasound--bladder mass-urology consulted Slow reduction of blood pressure given acute CVA Start with amlodipine, MAEVE inhibitor or ARB and thiazide--use clonidine prn only We will follow closely Plan discussed with: Patient LAVELLE CASTELLON MD Dec 12, 2024 13:14
--- NOTE | 2024-12-12 13:29 | DVHNC2 ---
Procedure - OPERATIVE REPORT Pre-op. Diagnosis: Bladder mass urinary frequency and urgency Post-op. Diagnosis: Urinary frequency, Urgency Urethral stenosis large bladder diverticulum BPH Operation: Cystoscopy with Calibration Nath catheter placement Anesthesia: Local Indications: Patient is here for Cystoscopy to evaluate "bladder mass". Risks including but not limited to infections and damage to the Urinary tract were dis cussed. Benefits of Early detection was discussed. Informed consent was obtained. Details of Procedure: Patient was positioned appropriately. He was prepped and draped in the usual manner. 2% lidocaine in the gel format was inserted into the urethra for 10 minutes. A Cystoscope was assembled and introduced. FINDINGS: Urethra - Urethral stenosis was noted which was passively dilated with the cystoscope; Prostate - coapting lateral lobes as well as mild median lobe enlargement /high median bar ; Bladder - difficult visualization due to debris materials encountered.But, no bladder stones, no bladder tumors, no foreign Body were noted. Large right posterior wall bladder diverticulum was noted. It was difficult to identify the ureteric orifices. Bladder mucosa shows 2+ trabeculations. Cystoscope was removed and a 16 Spanish coude tip Nath catheter was inserted. Specimens: None Complications: None Findings: Urethral Stenosis was dilatedBladder diverticulum Notes: we will obtain a CT cystogram Visit Code: Procedure Codes: 03146 CYSTO CALBI FOR U STRCT 82 NATH. MISSY SHETTY MD Dec 12, 2024 13:29
[2024-12-12 14:06] LABS: INR 1.05 (0.9-1.15); Partial Thromboplastin Time 24.5 SEC (24.5-34.5); Prothrombin Time 11.1 sec (9.3-11.8)
--- NOTE | 2024-12-12 15:35 | DVHPN2 ---
Progress Note - Dictate Medical Necessity Reason Pt with a Central, PICC or Fol: No vital signs Vital Sign Date Time Temp Pulse Resp B/P (MAP) Pulse Ox O2 Delivery O2 Flow Rate FiO2 12/12/24 11:20 91 20 167/104 (125) 98 12/12/24 08:40 98.0 98.0 12/12/24 08:00 Room Air* 0 21 Total Intake and Output 12/11/24 12/11/24 12/12/24 15:00 23:00 07:00 Intake Total 600 ml 300 ml Output Total 300 ml 500 ml Balance 300 ml -200 ml medications Current Medications Medications Dose Ordered Sig/Abilio Route Start Time Stop Time Status Last Admin Dose Admin Acetaminophen/ Hydrocodone Bitart 1 tab Q4HP PRN PO 12/09/24 11:00 12/09/24 21:12 1 TAB Temazepam 15 mg QHSP PRN PO 12/09/24 11:00 Ondansetron HCl 4 mg Q4HP PRN IV 12/09/24 11:00 12/10/24 16:44 4 MG Docusate Sodium 100 mg BIDPRN PRN PO 12/09/24 11:00 Enoxaparin Sodium 40 mg DAILY SC 12/10/24 10:00 12/11/24 09:29 40 MG Acetaminophen 650 mg Q6HP PRN PO 12/09/24 11:00 Morphine Sulfate 2 mg Q4HPRN PRN IV 12/09/24 11:00 Nitroglycerin 0.4 mg Q5MINP PRN SL 12/09/24 11:00 Morphine Sulfate 2 mg Q30M PRN IV 12/09/24 11:00 Diagnostic Test (Pha) 1 strip ACHS 12/09/24 11:30 12/12/24 06:32 1 STRIP Insulin Human Regular ACHS SC 12/09/24 11:30 12/12/24 06:54 2 UNITS Dextrose 50 ml UD PRN IV 12/09/24 11:00 Hydralazine HCl 10 mg Q6HP PRN IV 12/09/24 13:00 12/11/24 13:31 10 MG Atorvastatin Calcium 80 mg HS PO 12/09/24 22:00 12/11/24 22:35 80 MG Aspirin 81 mg DAILY PO 12/09/24 13:15 12/11/24 09:21 81 MG Pantoprazole Sodium 40 mg DAILY IV 12/11/24 10:00 12/11/24 09:20 40 MG Losartan Potassium 50 mg BID PO 12/10/24 22:00 12/12/24 10:03 50 MG Clonidine HCl 0.2 mg BID PO 12/11/24 16:45 12/12/24 10:00 0.2 MG objective General Appearance: alert, no distress HEENT: EOMI, PERRLA, normal external inspect of ears, no icterus, no nasal drainage Neck: no carotid bruit, no jugular venous distention (JVD), no lymphadenopathy Chest: normal thorax Respiratory: clear to auscultation, normal air movement Cardiovascular: regular rate and rhythm, no diastolic murmur, no jugular venous distention (JVD), no rub, no systolic murmur Abdominal: soft, no hepatomegaly, no mass, no splenomegaly, no tenderness Musculoskeletal: no joint tenderness, no swelling Extremities: normal pulses, no calf tenderness, no clubbing, no cyanosis, no edema Skin: no bruising, no jaundice, no rash Neurological: alert, No focal deficit laboratory and microbiology Laboratory Tests 12/12/24 07:15 Test 12/12/24 07:15 Range/Units Serum Glucose 152 H 74-106 mg/dL Problem List 1. Hypertensive urgency Cardiology conult 2. Bilateral lower extremity weakness Medication, monitoring 3. Obesity Diet education, monitor 4. DM II w/ hyperglycemia Insulin Sliding Scale 5. HLD Medication, monitoring 6. GERD Medication, monitoring 7. CVA with residual defects Neurology consult 8. CKD 3B Medication, monitoring 9. Acute CVA MRI of Brain Assessment/Plan Subjective Patient is awake and alert. Objective Patient was admitted for stroke. Patient was found to have a high grade stenosis to his left ICA. Patient will follow up with vascular surgeon for carotid stenosis. Patient was seen by cardiology. EF is 60 to 65%. Patient was seen by GI to determine if patient was a candidate for anticoagulation. Due to recent history of GI bleed and August of last year. Plan Patient to be scheduled for CLAUDY as arranged by cardiology. Monitor neuro status. Monitor EKG, continue anticoagulation and continue PPI. VITOR SCHULTZ NP Dec 12, 2024 15:35
--- NOTE | 2024-12-12 16:49 | DVH ---
XY CYSTOGRAM HISTORY: bladder diverticulum COMPARISON: None PROCEDURE: For the purposes of performing a cystogram, iodinated contrast contrast was administered t hrough a catheter into the urinary bladder while observing fluoroscopically. Oblique spot and post vo id films were then obtained. Total fluoroscopic time was 0.7 minutes. FINDINGS: Somers driven contrast flowed normally into the urinary bladder. The bladder demonstrates increased trabecularity. The bladder distended well. 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 No vesicoureteral reflux was noted. No le akage of contrast from the urinary bladder is demonstrated. 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
--- NOTE | 2024-12-12 16:51 | DVH ---
EXAM: CT Head Without Intravenous Contrast CLINICAL INDICATION: RIGHT SIDED WEAKNESS TECHNIQUE: Axial computed tomography images of the head/brain without intravenous contrast. This CT exam was performed using one or more of the following dose reduction techniques: automated exposure control, adjustment of the mA and/or kV according to patient size, and/or use of iterative reconstru ction technique. CONTRAST: RADIATION DOSE: CTDIvol = 65.98 mGy, DLP = 1167.96 mGy-cm COMPARISON: CT HEAD WITHOUT CONTRAST on DOS: 12/09/24, CT HEAD WITHOUT CONTRAST on DOS: 08/03/23, HE AD WITHOUT CONTRAST on DOS: 04/12/21 FINDINGS: BRAIN AND EXTRA-AXIAL SPACES: Hypodense lesion of the right caudate, likely prior infarction. The cerebral and cerebellar sulci are prominent consistent with brain atrophy. Areas of decreased attenu ation in the deep cerebral white matter are consistent with small vessel ischemic/degenerative change s. No acute intracranial hemorrhage, midline shift or mass effect. If symptoms persist, further eval uation with MRI is recommended. BONES/JOINTS: Unremarkable. No acute fracture. SOFT TISSUES: Unremarkable. SINUSES: Unremarkable as visualized. No acute sinusitis. MASTOID AIR CELLS: Unremarkable as visualized. No mastoid effusion. OTHER FINDINGS: . . IMPRESSION: 1. Generalized brain atrophy. 2. Small vessel ischemic/degenerative changes. 3. No acute intracranial hemorrhage, midline shift or mass effect. If symptoms persist, further eval uation with MRI is recommended.
--- NOTE | 2024-12-12 21:36 | DVHPN2 ---
Progress Note - Dictate Date Seen: Dec 12, 2024 Medical Necessity Reason Pt with a Central, PICC or Fol: No Subjective Mr. Goldsmith is a 69 years old right-handed gentleman with a history of hypertension, diabetes, dyslipidemia, [facility] with a chief complaint of bilateral leg weakness. At that time, he is alert, fully oriented, he provided the following history I saw him on 08/20/23 for syncope, 09/03/24 for metabolic encephalopathy (MRI: acute strokes) I have seen and examined the patient, I have discussed with his nurse, he was reports doing fine, alert and oriented, no new complaints Urinalysis, 12/09/2024: WBC: 314, urine leukocyte esterase: 3+ WBC/HB/PLT/MCV, 12/09/2024: 4/12.8/207/85.3 HGB A1c, 07/2023: 6.1, 12/09/2024: 7.6 BUN/CR, 09/03/2024: 22/1.81, 12/09/2024: 12/1.62 TG/HDL/LDL/HDL, 12/09/2024: 172/277/203/46 Vitamin B12, 04/2024: 622 TSH, 04/2020 4:2.29 CLAUDY, 12/12/2024: 1. Left ventricle: Mild concentrated Left ventricular hypertrophy was seen. LVEF was 65%. There was no gross wall motion abnormality seen. 2. Right ventricle: Normal RV size with normal systolic function. 3. Left atrium: LA mildly enlarged 4. Right atrium: RA was normal 5. Mitral valve: Trace Mitral regurgitation, no significant stenosis, normal functioning valve 6. Left atrial appendage: No evidence of thrombus. 7. Aortic valve: Aortic valve was trileaflet. There was no Aortic stenosis/Insufficiency 8. Pulmonic valve: Trivial pulmonic insufficiency. No significant stenosis. 9. Tricuspid valve: Trace tricuspid regurgitation. 10. Interatrial septum: Negative color flow for shunt was observed. Bubble study was negative (normal) 11. Pericardium: No significant effusion. 12. Thoracic aorta: No significant plaquing. 13 No vegetation was seen. Echocardiogram, 12/10/2024: Left ventricle: Concentric left ventricular hypertrophy was seen. LVEF was 60-65%. There was no gross wall motion abnormality. Right ventricle was normal sized with normal systolic function. Left atrium was dilated. Right atrium was normal sized. Aortic valve: Aortic valve was trileaflet. There was no aortic insufficiency/stenosis. There was trivial mitral regurgitation. There was no tricuspid regurgitation. There was no pulmonary valve insufficiency. There was no pericardial effusion. As there was no good tricuspid regurgitation jet, right ventricular systolic pressure could not be estimated. There was no echocardiographic evidence for pulmonary hypertension. IVC was normal sized with normal respiratory variation MRI head, 08/03/2023: No acute findings. Small vessel chronic ischemic changes MRI head, 09/04/2024: Few small foci of acute ischemia, suspect embolic infarcts. Clinical correlation and continued follow-up is recommended. Consider further evaluation with CTA or MRA of the head and neck MRI head, 12/09/2024: 1. Small foci of acute ischemia in the right thalamus and left parietal cortex. No intracranial hemorrhage. 2. Extensive chronic microvascular ischemic changes, advanced for patient's age. MRA brain, neck, 12/09/2024: 1. High-grade stenosis in the left intracranial ICA. 2. Short-segment occlusion of distal M2 segment of the left MCA. 3. Short- segment moderate stenosis of the proximal A2 segment of the left GILMA. 4. Short- segment occlusion of A3 segment of the right GILMA. 5. Moderate stenosis of the proximal basilar artery. 6. Hypoplastic right vertebral artery short-segment foci of high-grade stenosis and occlusion of the V3 segment vital signs Vital Sign Date Time Temp Pulse Resp B/P (MAP) Pulse Ox O2 Delivery O2 Flow Rate FiO2 12/12/24 20:55 163/81 12/12/24 20:00 93 Room Air* 0 21 12/12/24 16:55 98.2 89 17 98.2 Total Intake and Output 12/11/24 12/11/24 12/12/24 15:00 23:00 07:00 Intake Total 600 ml 300 ml Output Total 300 ml 500 ml Balance 300 ml -200 ml medications Current Medications Medications Dose Ordered Sig/Abilio Route Start Time Stop Time Status Last Admin Dose Admin Acetaminophen/ Hydrocodone Bitart 1 tab Q4HP PRN PO 12/09/24 11:00 12/09/24 21:12 1 TAB Temazepam 15 mg QHSP PRN PO 12/09/24 11:00 Ondansetron HCl 4 mg Q4HP PRN IV 12/09/24 11:00 12/10/24 16:44 4 MG Docusate Sodium 100 mg BIDPRN PRN PO 12/09/24 11:00 Enoxaparin Sodium 40 mg DAILY SC 12/10/24 10:00 12/11/24 09:29 40 MG Acetaminophen 650 mg Q6HP PRN PO 12/09/24 11:00 Morphine Sulfate 2 mg Q4HPRN PRN IV 12/09/24 11:00 Nitroglycerin 0.4 mg Q5MINP PRN SL 12/09/24 11:00 Morphine Sulfate 2 mg Q30M PRN IV 12/09/24 11:00 Diagnostic Test (Pha) 1 strip ACHS 12/09/24 11:30 12/12/24 20:55 1 STRIP Insulin Human Regular ACHS SC 12/09/24 11:30 12/12/24 17:41 2 UNITS Dextrose 50 ml UD PRN IV 12/09/24 11:00 Hydralazine HCl 10 mg Q6HP PRN IV 12/09/24 13:00 12/12/24 15:47 10 MG Atorvastatin Calcium 80 mg HS PO 12/09/24 22:00 12/12/24 20:55 80 MG Aspirin 81 mg DAILY PO 12/09/24 13:15 12/11/24 09:21 81 MG Pantoprazole Sodium 40 mg DAILY IV 12/11/24 10:00 12/11/24 09:20 40 MG Losartan Potassium 50 mg BID PO 12/10/24 22:00 12/12/24 20:54 50 MG Clonidine HCl 0.2 mg BID PO 12/11/24 16:45 12/12/24 20:55 0.2 MG objective General: the patient is well developed and nourished. No acute distress. MENTAL STATUS: Subjective SPEECH, LANGUAGE, HIGHER CORTICAL FUNCTION: no aphasia or dysathria. CRANIAL NERVES: Intact visual godfrey to confrontation. Pupils are equal, round and reactive. EOMs full and conjugate. No nystagmus. Facial sensation intact in all three divisions bilaterally. Mandibular strength intact. Facial muscles symmetrical and strength intact. SENSATION: Sensation to touch and pinprick is normal. MOTOR: Normal tone in the upper and lower extremity. Normal muscle bulk. No fasciculations. No abnormal movements or posturing. Muscle strength of the major groups in the upper extremities is 5/5. Muscle strength of the major groups in the extremities is right: 5/5, left 4/5. REFLEXES: Deep tendon reflexes are symmetrical. No pathological reflexes. CEREBELLAR/COORDINATION: Finger to nose is normal bilaterally. GAIT/STATION: deferred laboratory and microbiology Laboratory Tests 12/12/24 07:15 Test 12/12/24 07:15 Range/Units Serum Glucose 152 H 74-106 mg/dL Problem List Acute strokes Chronic stroke Left ICA high-grade stenosis History of GI bleeding with syncope, GI has cleared him to have antiplatelet treatment Assessment/Plan Monitoring Supportive treatment Telemetry Aspirin 81 mg daily Lipitor 80 mg daily Protonix, 40 mg daily Carafate 1 g b.i.d. DVT prophylaxis/Lovenox Syncope precautions discussed GI on case Further address left high-grade ICA stenosis as outpatient This medical document was created using an electronic medical record system with [employer] dictation system. Although this document has been carefully reviewed, there may still be some phonetic and typographical errors. These areas are purely typographical due to imperfections of the software programs, and do not reflect any compromise in the patient's medical care. Prognosis poor Plan discussed with: Patient, Other GRACIE UMAÑA MD Dec 12, 2024 21:36
[2024-12-13] VITALS (9 sets, daily range): BP systolic 148–163; BP diastolic 80–96; PULSE 75–105; RESP 17–19; TEMP 97.6–98.8; O2SAT 95–97
[2024-12-13 08:17] LABS: Basophils # (auto) 0 10 ^3/uL (0-0.2); Basophils % (auto) 0.3 % (0.0-2.0); Eosinophils # (auto) 0 10 ^3/uL (0-0.8); Eosinophils % (auto) 0.2 % (0.0-7.0); Hematocrit 39.3 % (41.0-53.0); Hemoglobin 12.6 g/dL (13.5-17.5); Lymphocytes # (auto) 1.8 10 ^3/uL (0.4-5.4); Lymphocytes % (auto) 17.9 % (10.0-50.0); Mean Corpuscular Hemoglobin 27.5 pg (28.0-32.0); Monocytes # (auto) 0.8 10 ^3/uL (0-1.3); Monocytes % (auto) 7.9 % (0.0-12.0); Neutrophils # (auto) 7.4 10 ^3/uL (1.6-8.6); Neutrophils % (auto) 73.7 % (37.0-80.0); Nucleated Red Blood Cells % 0.1 %; Platelet Count (auto) 188 10^3/uL (140-450); Red Blood Cells 4.57 10^6/uL (4.5-5.90)
[2024-12-13 08:25] LABS: Chloride 106 mmol/L (98-107); Potassium 4.5 mmol/L (3.5-5.1); Sodium 138 mmol/L (136-145)
[2024-12-13 08:26] LABS: Anion Gap 11 (5-15); Calcium 9.3 mg/dL (8.7-10.4); Carbon Dioxide 21 mmol/L (20-31)
[2024-12-13 08:31] LABS: BUN/Creatinine Ratio 10.1 (10.0-20.0); Blood Urea Nitrogen 19 mg/dL (9-23); Glucose 176 mg/dL (74-106); Magnesium 1.7 mg/dL (1.6-2.6)
[2024-12-13] MEDS: DOCUSATE SOD 100 MG CAP PO PRN (10:22)
--- NOTE | 2024-12-13 10:40 | DVHPN2 ---
Progress Note Date Seen: Dec 13, 2024 Medical Necessity Reason Pt with a Central, PICC or Fol: No Subjective Patient reports: No new complaints Other Systems: Patient seen and examined by myself today Objective vital signs Vital Sign Date Time Temp Pulse Resp B/P (MAP) Pulse Ox O2 Delivery O2 Flow Rate FiO2 12/13/24 10:13 179/99 12/13/24 09:00 97.6 101 19 96 97.6 12/12/24 20:00 Room Air* 0 21 Total Intake and Output 12/12/24 12/12/24 12/13/24 15:00 23:00 07:00 Intake Total 0 ml 300 ml Output Total 300 ml 400 ml Balance -300 ml -100 ml medications Current Medications Medications Dose Ordered Sig/Abilio Route Start Time Stop Time Status Last Admin Dose Admin Acetaminophen/ Hydrocodone Bitart 1 tab Q4HP PRN PO 12/09/24 11:00 12/09/24 21:12 1 TAB Temazepam 15 mg QHSP PRN PO 12/09/24 11:00 Ondansetron HCl 4 mg Q4HP PRN IV 12/09/24 11:00 12/10/24 16:44 4 MG Docusate Sodium 100 mg BIDPRN PRN PO 12/09/24 11:00 12/13/24 10:22 100 MG Enoxaparin Sodium 40 mg DAILY SC 12/10/24 10:00 12/13/24 10:14 40 MG Acetaminophen 650 mg Q6HP PRN PO 12/09/24 11:00 Morphine Sulfate 2 mg Q4HPRN PRN IV 12/09/24 11:00 Nitroglycerin 0.4 mg Q5MINP PRN SL 12/09/24 11:00 Morphine Sulfate 2 mg Q30M PRN IV 12/09/24 11:00 Diagnostic Test (Pha) 1 strip ACHS 12/09/24 11:30 12/13/24 06:33 1 STRIP Insulin Human Regular ACHS SC 12/09/24 11:30 12/13/24 06:44 2 UNITS Dextrose 50 ml UD PRN IV 12/09/24 11:00 Hydralazine HCl 10 mg Q6HP PRN IV 12/09/24 13:00 12/12/24 15:47 10 MG Atorvastatin Calcium 80 mg HS PO 12/09/24 22:00 12/12/24 20:55 80 MG Aspirin 81 mg DAILY PO 12/09/24 13:15 12/13/24 10:07 81 MG Pantoprazole Sodium 40 mg DAILY IV 12/11/24 10:00 12/13/24 10:06 40 MG Losartan Potassium 50 mg BID PO 12/10/24 22:00 12/13/24 10:13 50 MG Clonidine HCl 0.2 mg BID PO 12/11/24 16:45 12/13/24 10:12 0.2 MG Examination: LUNGS:Normal, CVS:Normal, MSK:Normal laboratory and microbiology Laboratory Tests 12/13/24 06:51 Test 12/13/24 06:51 Range/Units Serum Glucose 176 H 74-106 mg/dL Problem List/Assessment/Plan Problem List/Assessment/Plan Acute kidney injury on Chronic kidney disease IIIb hemodynamic mediated in the setting of hypertensive urgency Hypertensive urgency secondary to noncompliance Acute CVA Diabetes Obesity Proteinuria bladder mass Recommendations Kidney function slightly worsened today Increased urine output Kidney ultrasound--bladder mass-urology consulted Slow reduction of blood pressure given acute CVA Blood Pressure control We will follow closely Plan discussed with: Patient LAVELLE CASTELLON MD Dec 13, 2024 10:40
--- NOTE | 2024-12-13 12:15 | DVHPN2 ---
Progress Note - Dictate Date Seen: Dec 13, 2024 Medical Necessity Reason Pt with a Central, PICC or Fol: No vital signs Vital Sign Date Time Temp Pulse Resp B/P (MAP) Pulse Ox O2 Delivery O2 Flow Rate FiO2 12/13/24 10:13 179/99 12/13/24 09:00 97.6 101 19 96 97.6 12/12/24 20:00 Room Air* 0 21 Total Intake and Output 12/12/24 12/12/24 12/13/24 15:00 23:00 07:00 Intake Total 0 ml 300 ml Output Total 300 ml 400 ml Balance -300 ml -100 ml medications Current Medications Medications Dose Ordered Sig/Abilio Route Start Time Stop Time Status Last Admin Dose Admin Acetaminophen/ Hydrocodone Bitart 1 tab Q4HP PRN PO 12/09/24 11:00 12/09/24 21:12 1 TAB Temazepam 15 mg QHSP PRN PO 12/09/24 11:00 Ondansetron HCl 4 mg Q4HP PRN IV 12/09/24 11:00 12/10/24 16:44 4 MG Docusate Sodium 100 mg BIDPRN PRN PO 12/09/24 11:00 12/13/24 10:22 100 MG Enoxaparin Sodium 40 mg DAILY SC 12/10/24 10:00 12/13/24 10:14 40 MG Acetaminophen 650 mg Q6HP PRN PO 12/09/24 11:00 Morphine Sulfate 2 mg Q4HPRN PRN IV 12/09/24 11:00 Nitroglycerin 0.4 mg Q5MINP PRN SL 12/09/24 11:00 Morphine Sulfate 2 mg Q30M PRN IV 12/09/24 11:00 Diagnostic Test (Pha) 1 strip ACHS 12/09/24 11:30 12/13/24 06:33 1 STRIP Insulin Human Regular ACHS SC 12/09/24 11:30 12/13/24 06:44 2 UNITS Dextrose 50 ml UD PRN IV 12/09/24 11:00 Hydralazine HCl 10 mg Q6HP PRN IV 12/09/24 13:00 12/12/24 15:47 10 MG Atorvastatin Calcium 80 mg HS PO 12/09/24 22:00 12/12/24 20:55 80 MG Aspirin 81 mg DAILY PO 12/09/24 13:15 2/22/25 10:07 81 MG Pantoprazole Sodium 40 mg DAILY IV 12/11/24 10:00 12/13/24 10:06 40 MG Losartan Potassium 50 mg BID PO 12/10/24 22:00 12/13/24 10:13 50 MG Clonidine HCl 0.2 mg BID PO 12/11/24 16:45 12/13/24 10:12 0.2 MG objective General Appearance: alert, no distress HEENT: EOMI, PERRLA, normal external inspect of ears, no icterus, no nasal drainage Neck: no carotid bruit, no jugular venous distention (JVD), no lymphadenopathy Chest: normal thorax Respiratory: clear to auscultation, normal air movement Cardiovascular: regular rate and rhythm, no diastolic murmur, no jugular venous distention (JVD), no rub, no systolic murmur Abdominal: soft, no hepatomegaly, no mass, no splenomegaly, no tenderness Musculoskeletal: no joint tenderness, no swelling Extremities: normal pulses, no calf tenderness, no clubbing, no cyanosis, no edema Skin: no bruising, no jaundice, no rash Neurological: alert, No focal deficit laboratory and microbiology Laboratory Tests 12/13/24 06:51 Test 12/13/24 06:51 Range/Units Serum Glucose 176 H 74-106 mg/dL Problem List 1. Hypertensive urgency Cardiology conult 2. Bilateral lower extremity weakness Medication, monitoring 3. Obesity Diet education, monitor 4. DM II w/ hyperglycemia Insulin Sliding Scale 5. HLD Medication, monitoring 6. GERD Medication, monitoring 7. CVA with residual defects Neurology consult 8. CKD 3B Medication, monitoring 9. Acute CVA MRI of Brain Assessment/Plan Subjective: Patient is awake and alert. Objective: Patient's mentation is a&o x4 now. Patient is status post cystoscopy. A bladder mass was noted. 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 Patient also has acute CVA. A repeat CT head scan postoperatively for altered level of consciousness showed no acute findings. Plan: Continue current treatment. Continue physical therapy. Monitor renal functionpatient has a resolving MARY. Discharge planning in 12 days. Plan discussed with: Patient, Other VITOR SCHULTZ NP Dec 13, 2024 12:15
[2024-12-13] MEDS: MAGNESIUM SULFATE 1GM/100ML 100 ML IV SCH ×2 (13:00→18:33)
--- NOTE | 2024-12-13 16:31 | DVH ---
PROCEDURE: MRI BRAIN HEAD WO CONTRAST Indication: R/O CVA COMPARISON: MRI BRAIN HEAD WO CONTRAST on DOS: 12/09/24, MRI BRAIN HEAD WO CONTRAST on DOS: 09/04/24, MRI BRAIN HEAD WO CONTRAST on DOS: 08/03/23 TECHNIQUE: Multiplanar multisequence images of the brain are obtained. FINDINGS: There is m diffusion restriction in the right coronal radiata measuring 1.4 by 0.9 cm. There is left posterior parietal , posteromedial left temporal subcortical diffusion restriction. There are modera te to advanced periventricular and subcortical white matter T2 and FLAIR hyperintense changes.. There is no intracranial hemorrhage. No extra-axial fluid collection, mass effect or midline shift. The ve ntricles are midline and normal in size. The cisterns are patent. Normal intracranial flow voids are preserved. Mild global cerebral volume loss. Scattered foci susceptibility likely sequela of hyperten sive microangiopathy. The sinuses and mastoids are well pneumatized. The visualized orbits are unremarkable. IMPRESSION: 1. Acute infarcts in the right prasad radiata , left parietal subcortical region, posteromedial left temporal lobe. Given the bilaterality, correlate for thromboembolic, vasospastic etiology 2. Moderate to advanced chronic microvascular ischemic changes. 3. Mild global cerebral volume loss.
--- NOTE | 2024-12-13 17:38 | DVHPN2 ---
Progress Note - Dictate Date Seen: Dec 13, 2024 Medical Necessity Reason Pt with a Central, PICC or Fol: No Subjective Seen and examined at the bedside within telemetry. Chart reviewed. vital signs Vital Sign Date Time Temp Pulse Resp B/P (MAP) Pulse Ox O2 Delivery O2 Flow Rate FiO2 12/13/24 13:00 98.1 81 17 148/91 (110) 95 98.1 12/12/24 20:00 Room Air* 0 21 Total Intake and Output 12/12/24 12/12/24 12/13/24 15:00 23:00 07:00 Intake Total 0 ml 300 ml Output Total 300 ml 400 ml Balance -300 ml -100 ml medications Current Medications Medications Dose Ordered Sig/Abilio Route Start Time Stop Time Status Last Admin Dose Admin Acetaminophen/ Hydrocodone Bitart 1 tab Q4HP PRN PO 12/09/24 11:00 12/09/24 21:12 1 TAB Temazepam 15 mg QHSP PRN PO 12/09/24 11:00 Ondansetron HCl 4 mg Q4HP PRN IV 12/09/24 11:00 12/10/24 16:44 4 MG Docusate Sodium 100 mg BIDPRN PRN PO 12/09/24 11:00 12/13/24 10:22 100 MG Enoxaparin Sodium 40 mg DAILY SC 12/10/24 10:00 12/13/24 10:14 40 MG Acetaminophen 650 mg Q6HP PRN PO 12/09/24 11:00 Morphine Sulfate 2 mg Q4HPRN PRN IV 12/09/24 11:00 Nitroglycerin 0.4 mg Q5MINP PRN SL 12/09/24 11:00 Morphine Sulfate 2 mg Q30M PRN IV 12/09/24 11:00 Diagnostic Test (Pha) 1 strip ACHS 12/09/24 11:30 12/13/24 12:20 1 STRIP Insulin Human Regular ACHS SC 12/09/24 11:30 12/13/24 12:17 4 UNITS Dextrose 50 ml UD PRN IV 12/09/24 11:00 Hydralazine HCl 10 mg Q6HP PRN IV 12/09/24 13:00 12/12/24 15:47 10 MG Atorvastatin Calcium 80 mg HS PO 12/09/24 22:00 12/12/24 20:55 80 MG Aspirin 81 mg DAILY PO 12/09/24 13:15 12/13/24 10:07 81 MG Pantoprazole Sodium 40 mg DAILY IV 12/11/24 10:00 12/13/24 10:06 40 MG Losartan Potassium 50 mg BID PO 12/10/24 22:00 12/13/24 10:13 50 MG Clonidine HCl 0.2 mg BID PO 12/11/24 16:45 12/13/24 10:12 0.2 MG laboratory and microbiology Laboratory Tests 12/13/24 06:51 Test 12/13/24 06:51 Range/Units Serum Glucose 176 H 74-106 mg/dL Assessment/Plan Assessment/Plan Patient is a 69-year-old gentleman who presented to the hospital for worsening bilateral lower extremity weakness and swelling. He did have some headaches. He mentions that he has not been able to walk for the past 2 days. It is of note that the patient did have a CVA back in August 2024. Since that time he was able to walk with cane but for the past 2 days he is unable to. Cardiology was involved for cardiac aspects of care. He denies chest pains. He denies shortness of breath. He denies loss of consciousness. He denies dizziness. Morbidly obese. Not in acute distress. Not using accessory muscles of breathing. No JVD. Speaks slowly. Mucosa is pink and wet. No goiter. No carotid bruit. Lungs are clear to auscultation. Cardiac: Regular, no thrill/gallop. Abdomen is soft. There is no gross mass. Bowel sound is positive. Dorsalis pedis is 2+ bilateral Past medical history includes hypertension, diabetes mellitus, morbid obesity, history of CVA, CKD, old history of GI bleeding anemia, GERD, hyperlipidemia, hiatal hernia and old history of hepatitis-C. Does have history of smoking. Denies alcohol and drug abuse. Family history is positive for hypertension/CVA and heart murmur Echocardiogram of August 03, 2023 had reported mild concentric left ventricular hypertrophy, aortic sclerosis, ejection fraction of 65-70% and no vegetation Echocardiogram of August 2024 revealed ejection fraction of 60-65% Creatinine: 1.61 - 1.75 - 1.89 Potassium: 5.0 - 4.2 - 4.5 Troponin (high sensitive): 3 LDL: 203 CT of the head reported: IMPRESSION: 1. No acute intracranial process. 2. Moderate chronic microvascular ischemic changes. Repeat CT of the Brain revealed: IMPRESSION:1. Generalized brain atrophy. 2. Small vessel ischemic/degenerative changes. 3. No acute intracranial hemorrhage, midline shift or mass effect. If symptoms persist, further evaluation with MRI is recommended. MRI of the brain revealed: IMPRESSION: 1. Small foci of acute ischemia in the right thalamus and left parietal cortex. No intracranial hemorrhage. 2. Extensive chronic microvascular ischemic changes, advanced for patient's age. Repeat MRI of the Brain revealed IMPRESSION: 1. Acute infarcts in the right prasad radiata , left parietal subcortical region, posteromedial left temporal lobe. Given the bilaterality, correlate for thromboembolic, vasospastic etiology 2. Moderate to advanced chronic microvascular ischemic changes. 3. Mild global cerebral volume loss. MRI/MRA of the brain reported: IMPRESSION: 1. High-grade stenosis in the left intracranial ICA. 2. Short-segment occlusion of distal M2 segment of the left MCA. 3. Short-segment moderate stenosis of the proximal A2 segment of the left GILMA. 4. Short-segment occlusion of A3 segment of the right GILMA. 5. Moderate stenosis of the proximal basilar artery. 6. Hypoplastic right vertebral artery short-segment foci of high-grade stenosis and occlusion of the V3 segment. Critical Result: Large vessel occlusion Chest xry reported: IMPRESSION: No evidence of acute disease in the chest. Renal ultrasound revealed: FINDINGS: The right kidney measures 10 cm in length, which is normal in size. There is normal echogenicity of the right kidney. No hydronephrosis. The left kidney measures 10 cm in length, which is normal in size. There is normal echogenicity of the left kidney. No hydronephrosis. Bladder mass measuring 7.3 cm. IMPRESSION: Possible hyperechoic bladder mass. Cystoscopy recommended Cystogram revealed IMPRESSION: A large bladder diverticulum is seen at the bladder dome with an additional smaller diverticulum seen just laterally EKG reveals sinus rhythm with no specific ST-T changes. Tele reveals sinus rhythm Echocardiogram reported: Left ventricle: Concentric left ventricular hypertrophy was seen. LVEF was 60-65%. There was no gross wall motion abnormality. Right ventricle was normal sized with normal systolic function. Left atrium was dilated. Right atrium was normal sized. Aortic valve: Aortic valve was trileaflet. There was no aortic insufficiency/stenosis. There was trivial mitral regurgitation. There was no tricuspid regurgitation. There was no pulmonary valve insufficiency. There was no pericardial effusion. As there was no good tricuspid regurgitation jet, right ventricular systolic pressure could not be estimated. There was no echocardiographic evidence for pulmonary hypertension. IVC was normal sized with normal respiratory variation. Transesophageal Echocardiogram revealed no cardiac source of emboli observed Patient is a 69-year-old gentleman who presented with lower extremity weakness. Imaging/CT/MRI has revealed CVA. Acute coronary syndrome is not considered at this point. Cardiac etiology for presentation is less likely. CVA, acute Morbid obesity Diabetes mellitus Hypertension Hiatal hernia GI bleeding, history of CKD Kidney mass Status post cystoscopy Cardiac suggestion for management: Manage on telemetry Follow-up electrolytes and kidney function tests and correct abnormalities Aspirin daily High potency statin Management / goal of blood pressure as per Neurology Status post CLAUDY revealing no cardiac source of emboli observed Cardiac miranda, patient is moderate risk patient for moderate risk cystoscopy. 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 Follow up Urology recommendations Neurology follow up Further evaluation and management depends on the above and clinical course A total of 55 minutes was spent reviewing the patient record, examining the patient, making a diagnostic and therapeutic plan, discussing this plan with medical personnel, following up on diagnostic studies and following the patient for clinical stability excluding any and all procedures. At least 50% of this time was spent in direct, [id number] contact. Thank you for allowing me to participate in this patient's care. Further recommendations will depend on patient's clinical course. Plan discussed with: Patient (Patient and Primary RN ) NASIM GROSS Dec 13, 2024 17:37
[2024-12-14] VITALS (9 sets, daily range): BP systolic 148–170; BP diastolic 80–98; PULSE 68–97; RESP 17–18; TEMP 97.3–98.3; O2SAT 82–99
--- NOTE | 2024-12-14 05:04 | DVHPN2 ---
Progress Note - Dictate Date Seen: Dec 14, 2024 Medical Necessity Reason Pt with a Central, PICC or Fol: No Subjective Seen and examined at the bedside within telemetry. Chart reviewed. vital signs Vital Sign Date Time Temp Pulse Resp B/P (MAP) Pulse Ox O2 Delivery O2 Flow Rate FiO2 12/14/24 01:35 98.0 93 18 148/83 (104) 99 98.0 12/13/24 19:55 Room Air* 0 21 Total Intake and Output 12/13/24 12/13/24 12/14/24 15:00 23:00 07:00 Intake Total 1300 ml Output Total 600 ml Balance 700 ml medications Current Medications Medications Dose Ordered Sig/Abiloi Route Start Time Stop Time Status Last Admin Dose Admin Acetaminophen/ Hydrocodone Bitart 1 tab Q4HP PRN PO 12/09/24 11:00 12/09/24 21:12 1 TAB Temazepam 15 mg QHSP PRN PO 12/09/24 11:00 Ondansetron HCl 4 mg Q4HP PRN IV 12/09/24 11:00 12/10/24 16:44 4 MG Docusate Sodium 100 mg BIDPRN PRN PO 12/09/24 11:00 12/13/24 10:22 100 MG Enoxaparin Sodium 40 mg DAILY SC 12/10/24 10:00 12/13/24 10:14 40 MG Acetaminophen 650 mg Q6HP PRN PO 12/09/24 11:00 Morphine Sulfate 2 mg Q4HPRN PRN IV 12/09/24 11:00 Nitroglycerin 0.4 mg Q5MINP PRN SL 12/09/24 11:00 Morphine Sulfate 2 mg Q30M PRN IV 12/09/24 11:00 Diagnostic Test (Pha) 1 strip ACHS 12/09/24 11:30 12/13/24 21:13 1 STRIP Insulin Human Regular ACHS SC 12/09/24 11:30 12/13/24 21:53 6 UNITS Dextrose 50 ml UD PRN IV 12/09/24 11:00 Hydralazine HCl 10 mg Q6HP PRN IV 12/09/24 13:00 12/14/24 00:34 10 MG Atorvastatin Calcium 80 mg HS PO 12/09/24 22:00 12/13/24 21:13 80 MG Aspirin 81 mg DAILY PO 12/09/24 13:15 12/13/24 10:07 81 MG Pantoprazole Sodium 40 mg DAILY IV 12/11/24 10:00 12/13/24 10:06 40 MG Losartan Potassium 50 mg BID PO 12/10/24 22:00 12/13/24 21:12 50 MG Clonidine HCl 0.2 mg BID PO 12/11/24 16:45 12/13/24 21:13 0.2 MG laboratory and microbiology Laboratory Tests 12/13/24 06:51 Test 12/13/24 06:51 Range/Units Serum Glucose 176 H 74-106 mg/dL Assessment/Plan Assessment/Plan Patient is a 69-year-old gentleman who presented to the hospital for worsening bilateral lower extremity weakness and swelling. He did have some headaches. He mentions that he has not been able to walk for the past 2 days. It is of note that the patient did have a CVA back in August 2024. Since that time he was able to walk with cane but for the past 2 days he is unable to. Cardiology was involved for cardiac aspects of care. He denies chest pains. He denies shortness of breath. He denies loss of consciousness. He denies dizziness. Morbidly obese. Not in acute distress. Not using accessory muscles of breathing. No JVD. Speaks slowly. Mucosa is pink and wet. No goiter. No carotid bruit. Lungs are clear to auscultation. Cardiac: Regular, no thrill/gallop. Abdomen is soft. There is no gross mass. Bowel sound is positive. Dorsalis pedis is 2+ bilateral Past medical history includes hypertension, diabetes mellitus, morbid obesity, history of CVA, CKD, old history of GI bleeding anemia, GERD, hyperlipidemia, hiatal hernia and old history of hepatitis-C. Does have history of smoking. Denies alcohol and drug abuse. Family history is positive for hypertension/CVA and heart murmur Echocardiogram of August 03, 2023 had reported mild concentric left ventricular hypertrophy, aortic sclerosis, ejection fraction of 65-70% and no vegetation Echocardiogram of August 2024 revealed ejection fraction of 60-65% Creatinine: 1.61 - 1.75 - 1.89 Potassium: 5.0 - 4.2 - 4.5 Troponin (high sensitive): 3 LDL: 203 CT of the head reported: IMPRESSION: 1. No acute intracranial process. 2. Moderate chronic microvascular ischemic changes. Repeat CT of the Brain revealed: IMPRESSION:1. Generalized brain atrophy. 2. Small vessel ischemic/degenerative changes. 3. No acute intracranial hemorrhage, midline shift or mass effect. If symptoms persist, further evaluation with MRI is recommended. MRI of the brain revealed: IMPRESSION: 1. Small foci of acute ischemia in the right thalamus and left parietal cortex. No intracranial hemorrhage. 2. Extensive chronic microvascular ischemic changes, advanced for patient's age. Repeat MRI of the Brain revealed IMPRESSION: 1. Acute infarcts in the right prasad radiata , left parietal subcortical region, posteromedial left temporal lobe. Given the bilaterality, correlate for thromboembolic, vasospastic etiology 2. Moderate to advanced chronic microvascular ischemic changes. 3. Mild global cerebral volume loss. MRI/MRA of the brain reported: IMPRESSION: 1. High-grade stenosis in the left intracranial ICA. 2. Short-segment occlusion of distal M2 segment of the left MCA. 3. Short-segment moderate stenosis of the proximal A2 segment of the left GILMA. 4. Short-segment occlusion of A3 segment of the right GILMA. 5. Moderate stenosis of the proximal basilar artery. 6. Hypoplastic right vertebral artery short-segment foci of high-grade stenosis and occlusion of the V3 segment. Critical Result: Large vessel occlusion Chest xry reported: IMPRESSION: No evidence of acute disease in the chest. Renal ultrasound revealed: FINDINGS: The right kidney measures 10 cm in length, which is normal in size. There is normal echogenicity of the right kidney. No hydronephrosis. The left kidney measures 10 cm in length, which is normal in size. There is normal echogenicity of the left kidney. No hydronephrosis. Bladder mass measuring 7.3 cm. IMPRESSION: Possible hyperechoic bladder mass. Cystoscopy recommended Cystogram revealed IMPRESSION: A large bladder diverticulum is seen at the bladder dome with an additional smaller diverticulum seen just laterally EKG reveals sinus rhythm with no specific ST-T changes. Tele reveals sinus rhythm Echocardiogram reported: Left ventricle: Concentric left ventricular hypertrophy was seen. LVEF was 60-65%. There was no gross wall motion abnormality. Right ventricle was normal sized with normal systolic function. Left atrium was dilated. Right atrium was normal sized. Aortic valve: Aortic valve was trileaflet. There was no aortic insufficiency/stenosis. There was trivial mitral regurgitation. There was no tricuspid regurgitation. There was no pulmonary valve insufficiency. There was no pericardial effusion. As there was no good tricuspid regurgitation jet, right ventricular systolic pressure could not be estimated. There was no echocardiographic evidence for pulmonary hypertension. IVC was normal sized with normal respiratory variation. Transesophageal Echocardiogram revealed no cardiac source of emboli observed Patient is a 69-year-old gentleman who presented with lower extremity weakness. Imaging/CT/MRI has revealed CVA. Acute coronary syndrome is not considered at this point. Cardiac etiology for presentation is less likely. CVA, acute Morbid obesity Diabetes mellitus Hypertension Hiatal hernia GI bleeding, history of CKD Kidney mass Status post cystoscopy Cardiac suggestion for management: Manage on telemetry Follow-up electrolytes and kidney function tests and correct abnormalities Aspirin daily High potency statin Management / goal of blood pressure as per Neurology Status post CLAUDY revealing no cardiac source of emboli observed Cardiac miranda, patient is moderate risk patient for moderate risk cystoscopy. 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 Follow up Urology recommendations Neurology follow up Further evaluation and management depends on the above and clinical course A total of 55 minutes was spent reviewing the patient record, examining the patient, making a diagnostic and therapeutic plan, discussing this plan with medical personnel, following up on diagnostic studies and following the patient for clinical stability excluding any and all procedures. At least 50% of this time was spent in direct, [id number] contact. Thank you for allowing me to participate in this patient's care. Further recommendations will depend on patient's clinical course. Plan discussed with: Patient (Patient and Primary RN ) NASIM GROSS Dec 14, 2024 05:04
[2024-12-14 07:34] LABS: Anion Gap 10 (5-15); Carbon Dioxide 21 mmol/L (20-31); Chloride 105 mmol/L (98-107); Potassium 4.8 mmol/L (3.5-5.1)
[2024-12-14 07:57] LABS: Sodium 136 mmol/L (136-145)
[2024-12-14 07:58] LABS: BUN/Creatinine Ratio 16.7 (10.0-20.0); Blood Urea Nitrogen 25 mg/dL (9-23); Calcium 8.6 mg/dL (8.7-10.4); Glucose 186 mg/dL (74-106)
--- NOTE | 2024-12-14 09:20 | DVHPN2 ---
Progress Note - Dictate Date Seen: Dec 14, 2024 Medical Necessity Reason Pt with a Central, PICC or Fol: No vital signs Vital Sign Date Time Temp Pulse Resp B/P (MAP) Pulse Ox O2 Delivery O2 Flow Rate FiO2 12/14/24 05:28 97.8 87 18 153/87 (109) 97 97.8 12/13/24 19:55 Room Air* 0 21 Total Intake and Output 12/13/24 12/13/24 12/14/24 15:00 23:00 07:00 Intake Total 1300 ml 600 ml Output Total 600 ml 600 ml Balance 700 ml 0 ml medications Current Medications Medications Dose Ordered Sig/Abilio Route Start Time Stop Time Status Last Admin Dose Admin Acetaminophen/ Hydrocodone Bitart 1 tab Q4HP PRN PO 12/09/24 11:00 12/09/24 21:12 1 TAB Temazepam 15 mg QHSP PRN PO 12/09/24 11:00 Ondansetron HCl 4 mg Q4HP PRN IV 12/09/24 11:00 12/10/24 16:44 4 MG Docusate Sodium 100 mg BIDPRN PRN PO 12/09/24 11:00 12/13/24 10:22 100 MG Enoxaparin Sodium 40 mg DAILY SC 12/10/24 10:00 12/13/24 10:14 40 MG Acetaminophen 650 mg Q6HP PRN PO 12/09/24 11:00 Morphine Sulfate 2 mg Q4HPRN PRN IV 12/09/24 11:00 Nitroglycerin 0.4 mg Q5MINP PRN SL 12/09/24 11:00 Morphine Sulfate 2 mg Q30M PRN IV 12/09/24 11:00 Diagnostic Test (Pha) 1 strip ACHS 12/09/24 11:30 12/14/24 06:29 1 STRIP Insulin Human Regular ACHS SC 12/09/24 11:30 12/14/24 06:35 3 UNITS Dextrose 50 ml UD PRN IV 12/09/24 11:00 Hydralazine HCl 10 mg Q6HP PRN IV 12/09/24 13:00 12/14/24 00:34 10 MG Atorvastatin Calcium 80 mg HS PO 12/09/24 22:00 12/13/24 21:13 80 MG Aspirin 81 mg DAILY PO 12/09/24 13:15 12/13/24 10:07 81 MG Pantoprazole Sodium 40 mg DAILY IV 12/11/24 10:00 12/13/24 10:06 40 MG Losartan Potassium 50 mg BID PO 12/10/24 22:00 12/13/24 21:12 50 MG Clonidine HCl 0.2 mg BID PO 12/11/24 16:45 12/13/24 21:13 0.2 MG objective General Appearance: alert, no distress HEENT: EOMI, PERRLA, normal external inspect of ears, no icterus, no nasal drainage Neck: no carotid bruit, no jugular venous distention (JVD), no lymphadenopathy Chest: normal thorax Respiratory: clear to auscultation, normal air movement Cardiovascular: regular rate and rhythm, no diastolic murmur, no jugular venous distention (JVD), no rub, no systolic murmur Abdominal: soft, no hepatomegaly, no mass, no splenomegaly, no tenderness Musculoskeletal: no joint tenderness, no swelling Extremities: normal pulses, no calf tenderness, no clubbing, no cyanosis, no edema Skin: no bruising, no jaundice, no rash Neurological: alert, No focal deficit laboratory and microbiology Laboratory Tests 12/14/24 06:33 12/13/24 06:51 Test 12/14/24 06:33 Range/Units Serum Glucose 186 H 74-106 mg/dL Problem List 1. Hypertensive urgency Cardiology conult 2. Bilateral lower extremity weakness Medication, monitoring 3. Obesity Diet education, monitor 4. DM II w/ hyperglycemia Insulin Sliding Scale 5. HLD Medication, monitoring 6. GERD Medication, monitoring 7. CVA with residual defects Neurology consult 8. CKD 3B Medication, monitoring 9. Acute CVA MRI of Brain Assessment/Plan Subjective: Patient is awake and alert. Objective: Patient's mentation has improved to his baseline. Patient was admitted for acute CVA. Patient did have some encephalopathy noted after cystoscopy. Repeat MRI did show acute CVA. Patient was found to be hepatitis C positive. He will follow-up with GI outpatient. Patient has a resolving MARY superimposed on CKD. Patient required physical therapy yesterday. He stated he was able to ambulate with a walker. Plan: Cardiology recommendations appreciated. Patient is status post CLAUDY which is negative for emboli. Patient has a Gonzalez catheter placed by urology. Recommendations appreciated. Continue physical therapy. Discharge planning home with home health and outpatient PT. Plan discussed with: Patient, Other [employer] Dec 14, 2024 09:20
[2024-12-14 10:11] LABS: Alanine Aminotransferase 14 U/L (7-40); Albumin 3.2 g/dL (3.2-4.8); Alkaline Phosphatase 68 U/L (46-116); Anion Gap 10 (5-15); Aspartate Aminotransferase 19 U/L (13-40); BUN/Creatinine Ratio 15.6 (10.0-20.0); Bilirubin, Total 0.5 mg/dL (0.2-1.0); Chloride 107 mmol/L (98-107); Potassium 4.9 mmol/L (3.5-5.1); Sodium 136 mmol/L (136-145)
[2024-12-14 10:12] LABS: Blood Urea Nitrogen 24 mg/dL (9-23); Calcium 8.6 mg/dL (8.7-10.4); Carbon Dioxide 19 mmol/L (20-31); Glucose 186 mg/dL (74-106); Total Protein 5.4 g/dL (5.7-8.2)
--- NOTE | 2024-12-14 10:24 | DVHPN2 ---
Progress Note - Dictate Date Seen: Dec 14, 2024 Medical Necessity Reason Pt with a Central, PICC or Fol: No Subjective Patient seen at bedside Awake alert in no acute distress Tolerating a small amount of diet but does not have much appetite No abdominal pain and he had a bowel movement yesterday which was normal vital signs Vital Sign Date Time Temp Pulse Resp B/P (MAP) Pulse Ox O2 Delivery O2 Flow Rate FiO2 12/14/24 09:48 154/91 12/14/24 08:00 81 17 98 Room Air* 0 21 12/14/24 05:28 97.8 97.8 Total Intake and Output 12/13/24 12/13/24 12/14/24 15:00 23:00 07:00 Intake Total 1300 ml 600 ml Output Total 600 ml 600 ml Balance 700 ml 0 ml medications Current Medications Medications Dose Ordered Sig/Abilio Route Start Time Stop Time Status Last Admin Dose Admin Acetaminophen/ Hydrocodone Bitart 1 tab Q4HP PRN PO 12/09/24 11:00 12/09/24 21:12 1 TAB Temazepam 15 mg QHSP PRN PO 12/09/24 11:00 Ondansetron HCl 4 mg Q4HP PRN IV 12/09/24 11:00 12/10/24 16:44 4 MG Docusate Sodium 100 mg BIDPRN PRN PO 12/09/24 11:00 12/13/24 10:22 100 MG Enoxaparin Sodium 40 mg DAILY SC 12/10/24 10:00 12/14/24 09:46 40 MG Acetaminophen 650 mg Q6HP PRN PO 12/09/24 11:00 Morphine Sulfate 2 mg Q4HPRN PRN IV 12/09/24 11:00 Nitroglycerin 0.4 mg Q5MINP PRN SL 12/09/24 11:00 Morphine Sulfate 2 mg Q30M PRN IV 12/09/24 11:00 Diagnostic Test (Pha) 1 strip ACHS 12/09/24 11:30 12/14/24 06:29 1 STRIP Insulin Human Regular ACHS SC 12/09/24 11:30 12/14/24 06:35 3 UNITS Dextrose 50 ml UD PRN IV 12/09/24 11:00 Hydralazine HCl 10 mg Q6HP PRN IV 12/09/24 13:00 12/14/24 00:34 10 MG Atorvastatin Calcium 80 mg HS PO 12/09/24 22:00 12/13/24 21:13 80 MG Aspirin 81 mg DAILY PO 12/09/24 13:15 12/14/24 09:47 81 MG Pantoprazole Sodium 40 mg DAILY IV 12/11/24 10:00 12/14/24 09:45 40 MG Losartan Potassium 50 mg BID PO 12/10/24 22:00 12/14/24 09:47 50 MG Clonidine HCl 0.2 mg BID PO 12/11/24 16:45 12/14/24 09:48 0.2 MG objective General: NAD, AAOX3 Chest: lung godfrey clear to auscultation Heart: RRR, no murmur Abdomen: non-distended, no tenderness to palpation, +BS laboratory and microbiology Laboratory Tests 12/14/24 09:19 12/13/24 06:51 Test 12/14/24 09:19 Range/Units Serum Glucose 186 H 74-106 mg/dL Problems(with codes): (1) Uncontrolled diabetes mellitus (2) Hypertensive emergency (3) CVA (cerebral vascular accident) (4) Generalized weakness (5) Anemia (6) Hepatitis C antibody positive in blood Prognosis Plan Patient has been advised to follow up with GI Services as an outpatient for ongoing management of abdominal and liver issues Patient is being evaluated by Urology for bladder diverticulum possible bladder mass Neuro Services is following patient Okay to start anticoagulant antiplatelet agent as required Protonix 40 mg IV daily Monitor labs Supportive care from GI point of view Plan discussed with: Patient KAREL PRITCHARD MD Dec 14, 2024 10:23
--- NOTE | 2024-12-14 11:19 | DVHPN2 ---
Progress Note Date Seen: Dec 14, 2024 Medical Necessity Reason Pt with a Central, PICC or Fol: No Subjective Patient reports: No new complaints Other Systems: Patient seen and examined by myself today in follow-up Objective vital signs Vital Sign Date Time Temp Pulse Resp B/P (MAP) Pulse Ox O2 Delivery O2 Flow Rate FiO2 12/14/24 09:48 154/91 12/14/24 09:00 97.6 81 17 98 97.6 12/14/24 08:00 Room Air* 0 21 Total Intake and Output 12/13/24 12/13/24 12/14/24 14:59 22:59 06:59 Intake Total 1300 ml 600 ml Output Total 600 ml 600 ml Balance 700 ml 0 ml medications Current Medications Medications Dose Ordered Sig/Abilio Route Start Time Stop Time Status Last Admin Dose Admin Acetaminophen/ Hydrocodone Bitart 1 tab Q4HP PRN PO 12/09/24 11:00 12/09/24 21:12 1 TAB Temazepam 15 mg QHSP PRN PO 12/09/24 11:00 Ondansetron HCl 4 mg Q4HP PRN IV 12/09/24 11:00 12/10/24 16:44 4 MG Docusate Sodium 100 mg BIDPRN PRN PO 12/09/24 11:00 12/13/24 10:22 100 MG Enoxaparin Sodium 40 mg DAILY SC 12/10/24 10:00 12/14/24 09:46 40 MG Acetaminophen 650 mg Q6HP PRN PO 12/09/24 11:00 Morphine Sulfate 2 mg Q4HPRN PRN IV 12/09/24 11:00 Nitroglycerin 0.4 mg Q5MINP PRN SL 12/09/24 11:00 Morphine Sulfate 2 mg Q30M PRN IV 12/09/24 11:00 Diagnostic Test (Pha) 1 strip ACHS 12/09/24 11:30 12/14/24 06:29 1 STRIP Insulin Human Regular ACHS SC 12/09/24 11:30 12/14/24 06:35 3 UNITS Dextrose 50 ml UD PRN IV 12/09/24 11:00 Hydralazine HCl 10 mg Q6HP PRN IV 12/09/24 13:00 12/14/24 00:34 10 MG Atorvastatin Calcium 80 mg HS PO 12/09/24 22:00 12/13/24 21:13 80 MG Aspirin 81 mg DAILY PO 12/09/24 13:15 12/14/24 09:47 81 MG Pantoprazole Sodium 40 mg DAILY IV 12/11/24 10:00 12/14/24 09:45 40 MG Losartan Potassium 50 mg BID PO 12/10/24 22:00 12/14/24 09:47 50 MG Clonidine HCl 0.2 mg BID PO 12/11/24 16:45 12/14/24 09:48 0.2 MG Examination: LUNGS:Normal, CVS:Normal, MSK:Normal laboratory and microbiology Laboratory Tests 12/14/24 09:19 12/13/24 06:51 Test 12/14/24 09:19 Range/Units Serum Glucose 186 H 74-106 mg/dL Microbiology Date/Time Source Procedure Growth Status 12/12/24 15:15 Urine - Catheterized Urine Culture - Preliminary Resulted Problem List/Assessment/Plan Problem List/Assessment/Plan Acute kidney injury on Chronic kidney disease IIIb hemodynamic mediated in the setting of hypertensive urgency Hypertensive urgency secondary to noncompliance Acute CVA Diabetes Obesity Proteinuria bladder mass Recommendations Kidney function stabilize stage III Increased urine output Kidney ultrasound--bladder mass-urology consulted Slow reduction of blood pressure given acute CVA Blood Pressure control We will follow closely Plan discussed with: Patient LAVELLE CASTELLON MD Dec 14, 2024 11:19
[2024-12-15] VITALS (7 sets, daily range): BP systolic 147–168; BP diastolic 81–100; PULSE 63–87; RESP 12–19; TEMP 97.7–98.4; O2SAT 95–99
--- NOTE | 2024-12-15 08:20 | DVHPN2 ---
Progress Note - Dictate Date Seen: Dec 15, 2024 Medical Necessity Reason Pt with a Central, PICC or Fol: No vital signs Vital Sign Date Time Temp Pulse Resp B/P (MAP) Pulse Ox O2 Delivery O2 Flow Rate FiO2 12/15/24 05:00 98.0 71 18 157/92 (113) 95 98.0 12/14/24 20:00 Room Air* 0 21 Total Intake and Output 12/14/24 12/14/24 12/15/24 14:59 22:59 06:59 Intake Total 800 ml Output Total 800 ml 500 ml Balance -800 ml 300 ml medications Current Medications Medications Dose Ordered Sig/Abilio Route Start Time Stop Time Status Last Admin Dose Admin Acetaminophen/ Hydrocodone Bitart 1 tab Q4HP PRN PO 12/09/24 11:00 12/09/24 21:12 1 TAB Temazepam 15 mg QHSP PRN PO 12/09/24 11:00 Ondansetron HCl 4 mg Q4HP PRN IV 12/09/24 11:00 12/10/24 16:44 4 MG Docusate Sodium 100 mg BIDPRN PRN PO 12/09/24 11:00 12/13/24 10:22 100 MG Enoxaparin Sodium 40 mg DAILY SC 12/10/24 10:00 12/14/24 09:46 40 MG Acetaminophen 650 mg Q6HP PRN PO 12/09/24 11:00 Morphine Sulfate 2 mg Q4HPRN PRN IV 12/09/24 11:00 Nitroglycerin 0.4 mg Q5MINP PRN SL 12/09/24 11:00 Morphine Sulfate 2 mg Q30M PRN IV 12/09/24 11:00 Diagnostic Test (Pha) 1 strip ACHS 12/09/24 11:30 12/15/24 06:41 1 STRIP Insulin Human Regular ACHS SC 12/09/24 11:30 12/15/24 06:13 2 UNITS Dextrose 50 ml UD PRN IV 12/09/24 11:00 Hydralazine HCl 10 mg Q6HP PRN IV 12/09/24 13:00 12/14/24 00:34 10 MG Atorvastatin Calcium 80 mg HS PO 12/09/24 22:00 12/14/24 21:24 80 MG Aspirin 81 mg DAILY PO 12/09/24 13:15 12/14/24 09:47 81 MG Pantoprazole Sodium 40 mg DAILY IV 12/11/24 10:00 12/14/24 09:45 40 MG Losartan Potassium 50 mg BID PO 12/10/24 22:00 12/14/24 21:25 50 MG Clonidine HCl 0.2 mg BID PO 12/11/24 16:45 12/14/24 21:25 0.2 MG laboratory and microbiology Laboratory Tests 12/14/24 09:19 12/13/24 06:51 Test 12/14/24 09:19 Range/Units Serum Glucose 186 H 74-106 mg/dL Assessment/Plan Patient is a 69-year-old gentleman who presented to the hospital for worsening bilateral lower extremity weakness and swelling. He did have some headaches. He mentions that he has not been able to walk for the past 2 days. It is of note that the patient did have a CVA back in August 2024. Since that time he was able to walk with cane but for the past 2 days he is unable to. Cardiology was involved for cardiac aspects of care. He denies chest pains. He denies shortness of breath. He denies loss of consciousness. He denies dizziness. Morbidly obese. Not in acute distress. Not using accessory muscles of breathing. No JVD. Speaks slowly. Mucosa is pink and wet. No goiter. No carotid bruit. Lungs are clear to auscultation. Cardiac: Regular, no thrill/gallop. Abdomen is soft. There is no gross mass. Bowel sound is positive. Dorsalis pedis is 2+ bilateral Past medical history includes hypertension, diabetes mellitus, morbid obesity, history of CVA, CKD, old history of GI bleeding anemia, GERD, hyperlipidemia, hiatal hernia and old history of hepatitis-C. Does have history of smoking. Denies alcohol and drug abuse. Family history is positive for hypertension/CVA and heart murmur Echocardiogram of August 03, 2023 had reported mild concentric left ventricular hypertrophy, aortic sclerosis, ejection fraction of 65-70% and no vegetation Echocardiogram of August 2024 revealed ejection fraction of 60-65% Creatinine: 1.61 - 1.75 - 1.63 - 1.89 - 1.50 - 1.54 Potassium: 5.0 - 4.2 - 4.7 - 4.5 - 4.8 - 4.9 Troponin (high sensitive): 3 LDL: 203 CT of the head reported: IMPRESSION: 1. No acute intracranial process. 2. Moderate chronic microvascular ischemic changes. Repeat CT of head reported: IMPRESSION: 1. Generalized brain atrophy. 2. Small vessel ischemic/degenerative changes. 3. No acute intracranial hemorrhage, midline shift or mass effect. If symptoms persist, further evaluation with MRI is recommended. MRI of the brain revealed: IMPRESSION: 1. Small foci of acute ischemia in the right thalamus and left parietal cortex. No intracranial hemorrhage. 2. Extensive chronic microvascular ischemic changes, advanced for patient's age. Repeat MRI of brain reported: IMPRESSION: 1. Acute infarcts in the right prasad radiata , left parietal subcortical region, posteromedial left temporal lobe. Given the bilaterality, correlate for thromboembolic, vasospastic etiology 2. Moderate to advanced chronic microvascular ischemic changes. 3. Mild global cerebral volume loss. MRI/MRA of the brain reported: IMPRESSION: 1. High-grade stenosis in the left intracranial ICA. 2. Short-segment occlusion of distal M2 segment of the left MCA. 3. Short-segment moderate stenosis of the proximal A2 segment of the left GILMA. 4. Short-segment occlusion of A3 segment of the right GILMA. 5. Moderate stenosis of the proximal basilar artery. 6. Hypoplastic right vertebral artery short-segment foci of high-grade stenosis and occlusion of the V3 segment. Critical Result: Large vessel occlusion Chest xry reported: IMPRESSION: No evidence of acute disease in the chest. Renal ultrasound revealed: FINDINGS: The right kidney measures 10 cm in length, which is normal in size. There is normal echogenicity of the right kidney. No hydronephrosis. The left kidney measures 10 cm in length, which is normal in size. There is normal echogenicity of the left kidney. No hydronephrosis. Bladder mass measuring 7.3 cm. IMPRESSION: Possible hyperechoic bladder mass. Cystoscopy recommended Cystogram reported; IMPRESSION: A large bladder diverticulum is seen at the bladder dome with an additional smaller diverticulum seen just laterally. EKG reveals sinus rhythm with no specific ST-T changes. Tele reveals sinus rhythm Echocardiogram reported: Left ventricle: Concentric left ventricular hypertrophy was seen. LVEF was 60-65%. There was no gross wall motion abnormality. Right ventricle was normal sized with normal systolic function. Left atrium was dilated. Right atrium was normal sized. Aortic valve: Aortic valve was trileaflet. There was no aortic insufficiency/stenosis. There was trivial mitral regurgitation. There was no tricuspid regurgitation. There was no pulmonary valve insufficiency. There was no pericardial effusion. As there was no good tricuspid regurgitation jet, right ventricular systolic pressure could not be estimated. There was no echocardiographic evidence for pulmonary hypertension. IVC was normal sized with normal respiratory variation. CLAUDY did not reveal any Cardiac source for Emboli Patient is a 69-year-old gentleman who presented with lower extremity weakness. Imaging/CT/MRI has revealed CVA. Acute coronary syndrome is not considered at this point. Cardiac etiology for presentation is less likely. CVA, acute Morbid obesity Diabetes mellitus Hypertension Hiatal hernia GI bleeding, history of CKD Kidney mass s/p cystoscopy Bladder Diverticulum Cardiac suggestion for management: Manage on telemetry Follow-up electrolytes and kidney function tests and correct abnormalities Aspirin daily High potency statin Management / goal of blood pressure as per Neurology Status post CLAUDY revealing no cardiac source of emboli observed Neurology follow up Further evaluation and management depends on the above and clinical course A total of 55 minutes was spent reviewing the patient record, examining the patient, making a diagnostic and therapeutic plan, discussing this plan with medical personnel, following up on diagnostic studies and following the patient for clinical stability excluding any and all procedures. At least 50% of this time was spent in direct, [id number] contact. Thank you for allowing me to participate in this patient's care. Further recommendations will depend on patient's clinical course. Please do not hesitate to contact me if you have any questions or concerns. This medical document was created using electronic medical record system with [employer] computerized dictation system. Although this document has been carefully reviewed, there may still be some phonetic and typographical errors. These areas are purely typographical due to the imperfection of the software programs, and do not reflect any compromise in the patient's medical care. Plan discussed with: Patient, Other (nurse) NEVAEH FALCON MD Dec 15, 2024 08:20
--- NOTE | 2024-12-15 12:16 | DVHPN2 ---
Progress Note - Dictate Date Seen: Dec 15, 2024 Medical Necessity Reason Pt with a Central, PICC or Fol: No vital signs Vital Sign Date Time Temp Pulse Resp B/P (MAP) Pulse Ox O2 Delivery O2 Flow Rate FiO2 12/15/24 10:39 159/95 12/15/24 08:30 98.4 72 12 98 98.4 12/14/24 20:00 Room Air* 0 21 Total Intake and Output 12/14/24 12/14/24 12/15/24 15:00 23:00 07:00 Intake Total 800 ml Output Total 800 ml 500 ml Balance -800 ml 300 ml medications Current Medications Medications Dose Ordered Sig/Abilio Route Start Time Stop Time Status Last Admin Dose Admin Acetaminophen/ Hydrocodone Bitart 1 tab Q4HP PRN PO 12/09/24 11:00 12/09/24 21:12 1 TAB Temazepam 15 mg QHSP PRN PO 12/09/24 11:00 Ondansetron HCl 4 mg Q4HP PRN IV 12/09/24 11:00 12/10/24 16:44 4 MG Docusate Sodium 100 mg BIDPRN PRN PO 12/09/24 11:00 12/13/24 10:22 100 MG Enoxaparin Sodium 40 mg DAILY SC 12/10/24 10:00 12/15/24 10:35 40 MG Acetaminophen 650 mg Q6HP PRN PO 12/09/24 11:00 Morphine Sulfate 2 mg Q4HPRN PRN IV 12/09/24 11:00 Nitroglycerin 0.4 mg Q5MINP PRN SL 12/09/24 11:00 Morphine Sulfate 2 mg Q30M PRN IV 12/09/24 11:00 Diagnostic Test (Pha) 1 strip ACHS 12/09/24 11:30 12/15/24 06:41 1 STRIP Insulin Human Regular ACHS SC 12/09/24 11:30 12/15/24 06:13 2 UNITS Dextrose 50 ml UD PRN IV 12/09/24 11:00 Hydralazine HCl 10 mg Q6HP PRN IV 12/09/24 13:00 12/14/24 00:34 10 MG Atorvastatin Calcium 80 mg HS PO 12/09/24 22:00 12/14/24 21:24 80 MG Aspirin 81 mg DAILY PO 12/09/24 13:15 12/15/24 10:35 81 MG Pantoprazole Sodium 40 mg DAILY IV 12/11/24 10:00 12/15/24 10:34 40 MG Losartan Potassium 50 mg BID PO 12/10/24 22:00 12/15/24 10:39 50 MG Clonidine HCl 0.2 mg BID PO 12/11/24 16:45 12/15/24 10:39 0.2 MG objective General Appearance: alert, no distress HEENT: EOMI, PERRLA, normal external inspect of ears, no icterus, no nasal drainage Neck: no carotid bruit, no jugular venous distention (JVD), no lymphadenopathy Chest: normal thorax Respiratory: clear to auscultation, normal air movement Cardiovascular: regular rate and rhythm, no diastolic murmur, no jugular venous distention (JVD), no rub, no systolic murmur Abdominal: soft, no hepatomegaly, no mass, no splenomegaly, no tenderness Musculoskeletal: no joint tenderness, no swelling Extremities: normal pulses, no calf tenderness, no clubbing, no cyanosis, no edema Skin: no bruising, no jaundice, no rash Neurological: alert, No focal deficit laboratory and microbiology Laboratory Tests 12/14/24 09:19 12/13/24 06:51 Test 12/14/24 09:19 Range/Units Serum Glucose 186 H 74-106 mg/dL Problem List 1. Hypertensive urgency Cardiology conult 2. Bilateral lower extremity weakness Medication, monitoring 3. Obesity Diet education, monitor 4. DM II w/ hyperglycemia Insulin Sliding Scale 5. HLD Medication, monitoring 6. GERD Medication, monitoring 7. CVA with residual defects Neurology consult 8. CKD 3B Medication, monitoring 9. Acute CVA MRI of Brain Assessment/Plan Subjective: Patient is awake and alert. Objective: Patient was admitted on 12/09/2024. Patient was found to have an acute CVA. Patient had a CLAUDY which had no acute findings. Patient is positive for hepatitis C. Patient will follow-up with GI outpatient. Patient is also status post cystoscopy for possible bladder mass. Gonzalez catheter was placed by urology. Hemoglobin A1c is 7.6. Total cholesterol is 277. Patient is on atorvastatin 80 mg daily and a baby aspirin. Plan: Continue current treatment. Waiting on cardiac clearance. DC planning. Plan discussed with: Patient, Other VITOR SCHULTZ NP Dec 15, 2024 12:16
--- NOTE | 2024-12-15 14:06 | DVHPN2 ---
Progress Note Date Seen: Dec 15, 2024 Medical Necessity Reason Pt with a Central, PICC or Fol: Yes The following are medically ne: Link Catheter Objective vital signs Vital Sign Date Time Temp Pulse Resp B/P (MAP) Pulse Ox O2 Delivery O2 Flow Rate FiO2 12/15/24 12:30 98.1 63 16 164/99 (120) 99 98.1 12/14/24 20:00 Room Air* 0 21 Total Intake and Output 12/14/24 12/14/24 12/15/24 15:00 23:00 07:00 Intake Total 800 ml Output Total 800 ml 500 ml Balance -800 ml 300 ml medications Current Medications Medications Dose Ordered Sig/Abilio Route Start Time Stop Time Status Last Admin Dose Admin Acetaminophen/ Hydrocodone Bitart 1 tab Q4HP PRN PO 12/09/24 11:00 12/09/24 21:12 1 TAB Temazepam 15 mg QHSP PRN PO 12/09/24 11:00 Ondansetron HCl 4 mg Q4HP PRN IV 12/09/24 11:00 12/10/24 16:44 4 MG Docusate Sodium 100 mg BIDPRN PRN PO 12/09/24 11:00 12/13/24 10:22 100 MG Enoxaparin Sodium 40 mg DAILY SC 12/10/24 10:00 12/15/24 10:35 40 MG Acetaminophen 650 mg Q6HP PRN PO 12/09/24 11:00 Morphine Sulfate 2 mg Q4HPRN PRN IV 12/09/24 11:00 Nitroglycerin 0.4 mg Q5MINP PRN SL 12/09/24 11:00 Morphine Sulfate 2 mg Q30M PRN IV 12/09/24 11:00 Diagnostic Test (Pha) 1 strip ACHS 12/09/24 11:30 12/15/24 11:30 1 STRIP Insulin Human Regular ACHS SC 12/09/24 11:30 12/15/24 11:30 3 UNITS Dextrose 50 ml UD PRN IV 12/09/24 11:00 Hydralazine HCl 10 mg Q6HP PRN IV 12/09/24 13:00 12/14/24 00:34 10 MG Atorvastatin Calcium 80 mg HS PO 12/09/24 22:00 12/14/24 21:24 80 MG Aspirin 81 mg DAILY PO 12/09/24 13:15 12/15/24 10:35 81 MG Pantoprazole Sodium 40 mg DAILY IV 12/11/24 10:00 12/15/24 10:34 40 MG Losartan Potassium 50 mg BID PO 12/10/24 22:00 12/15/24 10:39 50 MG Clonidine HCl 0.2 mg BID PO 12/11/24 16:45 12/15/24 10:39 0.2 MG Examination: GENERAL:Normal, CVS:Normal, ABDOMEN:Normal laboratory and microbiology Laboratory Tests 12/14/24 09:19 12/13/24 06:51 Test 12/14/24 09:19 Range/Units Serum Glucose 186 H 74-106 mg/dL Microbiology Date/Time Source Procedure Growth Status 12/12/24 15:15 Urine - Catheterized Urine Culture - Final Complete Problem List/Assessment/Plan Problem List/Assessment/Plan Acute kidney injury on Chronic kidney disease IIIb hemodynamic mediated in the setting of hypertensive urgency Hypertensive urgency secondary to noncompliance Acute CVA Diabetes Obesity Proteinuria bladder mass-> bladder Diverticulum Increased urine output Kidney ultrasound--bladder mass-urology consulted Blood Pressure control ARB started continue to monitor link Plan discussed with: Patient XIANG HENAO MD Dec 15, 2024 14:06
[2024-12-15 14:15] LABS: Basophils # (auto) 0 10 ^3/uL (0-0.2); Basophils % (auto) 0.5 % (0.0-2.0); Eosinophils # (auto) 0 10 ^3/uL (0-0.8); Eosinophils % (auto) 0.8 % (0.0-7.0); Hematocrit 33.8 % (41.0-53.0); Hemoglobin 11.1 g/dL (13.5-17.5); Lymphocytes # (auto) 1.3 10 ^3/uL (0.4-5.4); Lymphocytes % (auto) 31.9 % (10.0-50.0); Mean Corpuscular Hemoglobin 28.2 pg (28.0-32.0); Mean Corpuscular Hgb Conc. 32.7 g/dL (32.0-36.0); Mean Corpuscular Volume 86.3 fL (80.0-100.0); Monocytes # (auto) 0.4 10 ^3/uL (0-1.3); Monocytes % (auto) 9.8 % (0.0-12.0); Neutrophils # (auto) 2.3 10 ^3/uL (1.6-8.6); Nucleated Red Blood Cells % 0.1 %; Platelet Count (auto) 173 10^3/uL (140-450); Red Blood Cells 3.92 10^6/uL (4.5-5.90); Red Cell Distribution Width 17.6 % (11.8-14.3); White Blood Cell 4.1 10^3/uL (4.4-10.8)
[2024-12-15 14:21] LABS: Chloride 104 mmol/L (98-107); Potassium 4.9 mmol/L (3.5-5.1)
[2024-12-15 14:22] LABS: Anion Gap 6 (5-15); Carbon Dioxide 23 mmol/L (20-31)
[2024-12-15 14:27] LABS: BUN/Creatinine Ratio 10.8 (10.0-20.0); Blood Urea Nitrogen 18 mg/dL (9-23)
[2024-12-15 14:29] LABS: Calcium 8.6 mg/dL (8.7-10.4); Glucose 269 mg/dL (74-106); Sodium 133 mmol/L (136-145)
--- NOTE | 2024-12-15 17:57 | DVHPN2 ---
Progress Note Date Seen: Dec 15, 2024 Resident Creating Document: FADY RAMÍREZ RESIDENT Medical Necessity Reason Pt with a Central, PICC or Fol: Yes The following are medically ne: Gonzalez Catheter Subjective Review of Systems Patient seen at bedside Alert last bowel movement today no nausea or vomiting tolerating diet' Objective vital signs Vital Sign Date Time Temp Pulse Resp B/P (MAP) Pulse Ox O2 Delivery O2 Flow Rate FiO2 12/15/24 16:30 97.7 73 16 155/100 (118) 97 97.7 12/14/24 20:00 Room Air* 0 21 Total Intake and Output 12/14/24 12/14/24 12/15/24 15:00 23:00 07:00 Intake Total 800 ml Output Total 800 ml 500 ml Balance -800 ml 300 ml medications Current Medications Medications Dose Ordered Sig/Abilio Route Start Time Stop Time Status Last Admin Dose Admin Acetaminophen/ Hydrocodone Bitart 1 tab Q4HP PRN PO 12/09/24 11:00 12/09/24 21:12 1 TAB Temazepam 15 mg QHSP PRN PO 12/09/24 11:00 Ondansetron HCl 4 mg Q4HP PRN IV 12/09/24 11:00 12/10/24 16:44 4 MG Docusate Sodium 100 mg BIDPRN PRN PO 12/09/24 11:00 12/13/24 10:22 100 MG Enoxaparin Sodium 40 mg DAILY SC 12/10/24 10:00 12/15/24 10:35 40 MG Acetaminophen 650 mg Q6HP PRN PO 12/09/24 11:00 Morphine Sulfate 2 mg Q4HPRN PRN IV 12/09/24 11:00 Nitroglycerin 0.4 mg Q5MINP PRN SL 12/09/24 11:00 Morphine Sulfate 2 mg Q30M PRN IV 12/09/24 11:00 Diagnostic Test (Pha) 1 strip ACHS 12/09/24 11:30 12/15/24 11:30 1 STRIP Insulin Human Regular ACHS SC 12/09/24 11:30 12/15/24 11:30 3 UNITS Dextrose 50 ml UD PRN IV 12/09/24 11:00 Hydralazine HCl 10 mg Q6HP PRN IV 12/09/24 13:00 12/14/24 00:34 10 MG Atorvastatin Calcium 80 mg HS PO 12/09/24 22:00 12/14/24 21:24 80 MG Aspirin 81 mg DAILY PO 12/09/24 13:15 12/15/24 10:35 81 MG Pantoprazole Sodium 40 mg DAILY IV 12/11/24 10:00 12/15/24 10:34 40 MG Losartan Potassium 50 mg BID PO 12/10/24 22:00 12/15/24 10:39 50 MG Clonidine HCl 0.2 mg BID PO 12/11/24 16:45 12/15/24 10:39 0.2 MG Examination CVA Left ICA high-grade stenosis History of GI bleeding Hiatal hernia Gastritis Colon polyp Bladder diverticulum Plan/recommendation EGD (09/05/24 ) 1. Large hiatal hernia about 10-12 cm with organoaxial rotation but no obstruction or significant volvulus Short-segment Rivera's but no evidence of acute esophagitis or ulceration 2. Mild gastritis within hiatal hernia sac and in the stomach 3. Slight difficulty in entering into the duodenal because of the large hiatal hernia but otherwise normal examination up to the 2nd and 3rd part of the duodenal -Continue Protonix 40 mg IV daily -Continue Carafate 1 g p.o. twice daily. -patient also by Urology for blood diverticulum -Iron supplements recommended -GI team on standby if any bleeding -follow with GI service as outpatient for ongoing management of abdominal liver issues -supportive care from GI point of view laboratory and microbiology Laboratory Tests 12/15/24 13:25 Test 12/15/24 13:25 Range/Units Serum Glucose 269 H 74-106 mg/dL Microbiology Date/Time Source Procedure Growth Status 12/12/24 15:15 Urine - Catheterized Urine Culture - Final Complete Problem List/Assessment/Plan Problem List/Assessment/Plan CVA Left ICA high-grade stenosis History of GI bleeding Hiatal hernia Gastritis Colon polyp Plan/recommendation EGD (09/05/24 ) 1. Large hiatal hernia about 10-12 cm with organoaxial rotation but no obstruction or significant volvulus Short-segment Rivera's but no evidence of acute esophagitis or ulceration 2. Mild gastritis within hiatal hernia sac and in the stomach 3. Slight difficulty in entering into the duodenal because of the large hiatal hernia but otherwise normal examination up to the 2nd and 3rd part of the duodenal -Continue Protonix 40 mg p.o. daily -Continue Carafate 1 g p.o. twice daily. -Patient cleared to start antiplatelets treatment -Iron supplements recommended -GI team on standby if any bleeding Plan discussed with: Patient, Other (RN) FADY RAMÍREZ RESIDENT Dec 15, 2024 17:57
--- NOTE | 2024-12-15 22:43 | DVHPN2 ---
Progress Note - Dictate Date Seen: Dec 15, 2024 Medical Necessity Reason Pt with a Central, PICC or Fol: Yes The following are medically ne: Gonzalez Catheter Subjective Mr. Goldsmith is a 69 years old right-handed gentleman with a history of hypertension, diabetes, dyslipidemia, he came to the [facility] on 12/09/2024 with a chief complaint of bilateral leg weakness. At that time, he is alert, fully oriented, he provided the following history I saw him on 08/20/23 for syncope, 09/03/24 for metabolic encephalopathy (MRI: acute strokes) I have seen and examined the patient, I have discussed with his nurse, he was reports doing fine, alert and oriented, no new complaints On 12/13/2024, the patient was had follow-up MR brain scan. According to nurse note, a presumed the patient complained that he was able to walk before but not able to do so after he was admitted before the order of MR brain scan But on my physical examination, I do not see new weakness or sensory loss, thought the MR brain scan she was new acute strokes and enlarged right basal ganglia region stroke I have reviewed his telemetry record and discussed with the chick room supervisor office, there was no evidence of AFib Urinalysis, 12/09/2024: WBC: 314, urine leukocyte esterase: 3+ WBC/HB/PLT/MCV, 12/09/2024: 4/12.8/207/85.3 HGB A1c, 07/2023: 6.1, 12/09/2024: 7.6 BUN/CR, 09/03/2024: 22/1.81, 12/09/2024: 12/1.62 TG/HDL/LDL/HDL, 12/09/2024: 172/277/203/46 Vitamin B12, 04/2024: 622 TSH, 04/2020 4:2.29 CLAUDY, 12/12/2024: 1. Left ventricle: Mild concentrated Left ventricular hypertrophy was seen. LVEF was 65%. There was no gross wall motion abnormality seen. 2. Right ventricle: Normal RV size with normal systolic function. 3. Left atrium: LA mildly enlarged 4. Right atrium: RA was normal 5. Mitral valve: Trace Mitral regurgitation, no significant stenosis, normal functioning valve 6. Left atrial appendage: No evidence of thrombus. 7. Aortic valve: Aortic valve was trileaflet. There was no Aortic stenosis/Insufficiency 8. Pulmonic valve: Trivial pulmonic insufficiency. No significant stenosis. 9. Tricuspid valve: Trace tricuspid regurgitation. 10. Interatrial septum: Negative color flow for shunt was observed. Bubble study was negative (normal) 11. Pericardium: No significant effusion. 12. Thoracic aorta: No significant plaquing. 13 No vegetation was seen. Echocardiogram, 12/10/2024: Left ventricle: Concentric left ventricular hypertrophy was seen. LVEF was 60-65%. There was no gross wall motion abnormality. Right ventricle was normal sized with normal systolic function. Left atrium was dilated. Right atrium was normal sized. Aortic valve: Aortic valve was trileaflet. There was no aortic insufficiency/stenosis. There was trivial mitral regurgitation. There was no tricuspid regurgitation. There was no pulmonary valve insufficiency. There was no pericardial effusion. As there was no good tricuspid regurgitation jet, right ventricular systolic pressure could not be estimated. There was no echocardiographic evidence for pulmonary hypertension. IVC was normal sized with normal respiratory variation MRI head, 08/03/2023: No acute findings. Small vessel chronic ischemic changes MRI head, 09/04/2024: Few small foci of acute ischemia, suspect embolic infarcts. Clinical correlation and continued follow-up is recommended. Consider further evaluation with CTA or MRA of the head and neck MRI head, 12/09/2024: 1. Small foci of acute ischemia in the right thalamus and left parietal cortex. No intracranial hemorrhage. 2. Extensive chronic microvascular ischemic changes, advanced for patient's age. MRI head, 12/13/2024: 1. Acute infarcts in the right prasad radiata , left parietal subcortical region, posteromedial left temporal lobe. Given the bilaterality, correlate for thromboembolic, vasospastic etiology 2. Moderate to advanced chronic microvascular ischemic changes. 3. Mild global cerebral volume loss (the right basal ganglia acute stroke is enlarged, new strokes in the left parietal lobe) MRA brain, neck, 12/09/2024: 1. High-grade stenosis in the left intracranial ICA. 2. Short-segment occlusion of distal M2 segment of the left MCA. 3. Short- segment moderate stenosis of the proximal A2 segment of the left GILMA. 4. Short- segment occlusion of A3 segment of the right GILMA. 5. Moderate stenosis of the proximal basilar artery. 6. Hypoplastic right vertebral artery short-segment foci of high-grade stenosis and occlusion of the V3 segment vital signs Vital Sign Date Time Temp Pulse Resp B/P (MAP) Pulse Ox O2 Delivery O2 Flow Rate FiO2 12/15/24 22:18 147/81 12/15/24 21:00 98.3 87 19 96 98.3 12/15/24 08:30 Room Air* 0 21 Total Intake and Output 12/14/24 12/14/24 12/15/24 15:00 23:00 07:00 Intake Total 800 ml Output Total 800 ml 500 ml Balance -800 ml 300 ml medications Current Medications Medications Dose Ordered Sig/Abilio Route Start Time Stop Time Status Last Admin Dose Admin Acetaminophen/ Hydrocodone Bitart 1 tab Q4HP PRN PO 12/09/24 11:00 12/09/24 21:12 1 TAB Temazepam 15 mg QHSP PRN PO 12/09/24 11:00 Ondansetron HCl 4 mg Q4HP PRN IV 12/09/24 11:00 12/10/24 16:44 4 MG Docusate Sodium 100 mg BIDPRN PRN PO 12/09/24 11:00 12/13/24 10:22 100 MG Enoxaparin Sodium 40 mg DAILY SC 12/10/24 10:00 12/15/24 10:35 40 MG Acetaminophen 650 mg Q6HP PRN PO 12/09/24 11:00 Morphine Sulfate 2 mg Q4HPRN PRN IV 12/09/24 11:00 Nitroglycerin 0.4 mg Q5MINP PRN SL 12/09/24 11:00 Morphine Sulfate 2 mg Q30M PRN IV 12/09/24 11:00 Diagnostic Test (Pha) 1 strip ACHS 12/09/24 11:30 12/15/24 22:18 1 STRIP Insulin Human Regular ACHS SC 12/09/24 11:30 12/15/24 22:22 10 UNITS Dextrose 50 ml UD PRN IV 12/09/24 11:00 Hydralazine HCl 10 mg Q6HP PRN IV 12/09/24 13:00 12/14/24 00:34 10 MG Atorvastatin Calcium 80 mg HS PO 12/09/24 22:00 12/15/24 22:17 80 MG Aspirin 81 mg DAILY PO 12/09/24 13:15 12/15/24 10:35 81 MG Pantoprazole Sodium 40 mg DAILY IV 12/11/24 10:00 12/15/24 10:34 40 MG Losartan Potassium 50 mg BID PO 12/10/24 22:00 12/15/24 22:18 50 MG Clonidine HCl 0.2 mg BID PO 12/11/24 16:45 12/15/24 22:17 0.2 MG objective General: the patient is well developed and nourished. No acute distress. MENTAL STATUS: Subjective SPEECH, LANGUAGE, HIGHER CORTICAL FUNCTION: no aphasia or dysathria. CRANIAL NERVES: Intact visual godfrey to confrontation. Pupils are equal, round and reactive. EOMs full and conjugate. No nystagmus. Facial sensation intact in all three divisions bilaterally. Mandibular strength intact. Facial muscles symmetrical and strength intact. SENSATION: Sensation to touch and pinprick is normal. MOTOR: Normal tone in the upper and lower extremity. Normal muscle bulk. No fasciculations. No abnormal movements or posturing. Muscle strength of the major groups in the upper extremities is 5/5. Muscle strength of the major groups in the lower extremities is right: 4-5/5. REFLEXES: Deep tendon reflexes are symmetrical. No pathological reflexes. CEREBELLAR/COORDINATION: Finger to nose is normal bilaterally. GAIT/STATION: deferred laboratory and microbiology Laboratory Tests 12/15/24 13:25 Test 12/15/24 13:25 Range/Units Serum Glucose 269 H 74-106 mg/dL Problem List Acute multiple strokes on admission, and he was more acute strokes in the MRI on 12/13/2024, ? Secondary to left ICA stenosis ? Cardiac or aorta emboli source Chronic stroke Left ICA high-grade stenosis History of GI bleeding with syncope, GI has cleared him to have antiplatelet treatment Assessment/Plan Monitoring Supportive treatment Telemetry Aspirin 81 mg daily Lipitor 80 mg daily Protonix, 40 mg daily Carafate 1 g b.i.d. DVT prophylaxis/Lovenox Syncope precautions discussed GI on case Trying to higher level of care Re: 1, Recurrent acute multiple strokes with unremarkable CLAUDY, telemetry record, 2 high-grade left IC stenosis Further address left high-grade ICA stenosis as outpatient This medical document was created using an electronic medical record system with [employer] dictation system. Although this document has been carefully reviewed, there may still be some phonetic and typographical errors. These areas are purely typographical due to imperfections of the software programs, and do not reflect any compromise in the patient's medical care. Prognosis poor Plan discussed with: Patient, Other Total Time (mins): 45 GRACIE UMAÑA MD Dec 15, 2024 22:43
[2024-12-16] VITALS (8 sets, daily range): BP systolic 152–178; BP diastolic 85–100; PULSE 63–97; RESP 18–20; TEMP 97.8–98.3; O2SAT 97–99
--- NOTE | 2024-12-16 06:03 | DVHPN2 ---
Progress Note - Dictate Date Seen: Dec 16, 2024 Medical Necessity Reason Pt with a Central, PICC or Fol: Yes The following are medically ne: Gonzalez Catheter vital signs Vital Sign Date Time Temp Pulse Resp B/P (MAP) Pulse Ox O2 Delivery O2 Flow Rate FiO2 12/16/24 05:00 97.8 68 19 155/95 (115) 98 97.8 12/15/24 20:00 Room Air* 0 21 Total Intake and Output 12/15/24 12/15/24 12/16/24 15:00 23:00 07:00 Intake Total 736 ml Output Total 575 ml 800 ml Balance -575 ml -64 ml medications Current Medications Medications Dose Ordered Sig/Abilio Route Start Time Stop Time Status Last Admin Dose Admin Acetaminophen/ Hydrocodone Bitart 1 tab Q4HP PRN PO 12/09/24 11:00 12/09/24 21:12 1 TAB Temazepam 15 mg QHSP PRN PO 12/09/24 11:00 Ondansetron HCl 4 mg Q4HP PRN IV 12/09/24 11:00 12/10/24 16:44 4 MG Docusate Sodium 100 mg BIDPRN PRN PO 12/09/24 11:00 12/13/24 10:22 100 MG Enoxaparin Sodium 40 mg DAILY SC 12/10/24 10:00 12/15/24 10:35 40 MG Acetaminophen 650 mg Q6HP PRN PO 12/09/24 11:00 Morphine Sulfate 2 mg Q4HPRN PRN IV 12/09/24 11:00 Nitroglycerin 0.4 mg Q5MINP PRN SL 12/09/24 11:00 Morphine Sulfate 2 mg Q30M PRN IV 12/09/24 11:00 Diagnostic Test (Pha) 1 strip ACHS 12/09/24 11:30 12/15/24 22:18 1 STRIP Insulin Human Regular ACHS SC 12/09/24 11:30 12/15/24 22:22 10 UNITS Dextrose 50 ml UD PRN IV 12/09/24 11:00 Hydralazine HCl 10 mg Q6HP PRN IV 12/09/24 13:00 12/14/24 00:34 10 MG Atorvastatin Calcium 80 mg HS PO 12/09/24 22:00 12/15/24 22:17 80 MG Aspirin 81 mg DAILY PO 12/09/24 13:15 12/15/24 10:35 81 MG Pantoprazole Sodium 40 mg DAILY IV 12/11/24 10:00 12/15/24 10:34 40 MG Losartan Potassium 50 mg BID PO 12/10/24 22:00 12/15/24 22:18 50 MG Clonidine HCl 0.2 mg BID PO 12/11/24 16:45 12/15/24 22:17 0.2 MG laboratory and microbiology Laboratory Tests 12/15/24 13:25 Test 12/15/24 13:25 Range/Units Serum Glucose 269 H 74-106 mg/dL Assessment/Plan Patient is a 69-year-old gentleman who presented to the hospital for worsening bilateral lower extremity weakness and swelling. He did have some headaches. He mentions that he has not been able to walk for the past 2 days. It is of note that the patient did have a CVA back in August 2024. Since that time he was able to walk with cane but for the past 2 days he is unable to. Cardiology was involved for cardiac aspects of care. He denies chest pains. He denies shortness of breath. He denies loss of consciousness. He denies dizziness. Morbidly obese. Not in acute distress. Not using accessory muscles of breathing. No JVD. Speaks slowly. Mucosa is pink and wet. No goiter. No carotid bruit. Lungs are clear to auscultation. Cardiac: Regular, no thrill/gallop. Abdomen is soft. There is no gross mass. Bowel sound is positive. Dorsalis pedis is 2+ bilateral Past medical history includes hypertension, diabetes mellitus, morbid obesity, history of CVA, CKD, old history of GI bleeding anemia, GERD, hyperlipidemia, hiatal hernia and old history of hepatitis-C. Does have history of smoking. Denies alcohol and drug abuse. Family history is positive for hypertension/CVA and heart murmur Echocardiogram of August 03, 2023 had reported mild concentric left ventricular hypertrophy, aortic sclerosis, ejection fraction of 65-70% and no vegetation Echocardiogram of August 2024 revealed ejection fraction of 60-65% Creatinine: 1.61 - 1.75 - 1.63 - 1.89 - 1.50 - 1.54 - 1.66 Potassium: 5.0 - 4.2 - 4.7 - 4.5 - 4.8 - 4.9 - 4.9 Troponin (high sensitive): 3 LDL: 203 CT of the head reported: IMPRESSION: 1. No acute intracranial process. 2. Moderate chronic microvascular ischemic changes. Repeat CT of head reported: IMPRESSION: 1. Generalized brain atrophy. 2. Small vessel ischemic/degenerative changes. 3. No acute intracranial hemorrhage, midline shift or mass effect. If symptoms persist, further evaluation with MRI is recommended. MRI of the brain revealed: IMPRESSION: 1. Small foci of acute ischemia in the right thalamus and left parietal cortex. No intracranial hemorrhage. 2. Extensive chronic microvascular ischemic changes, advanced for patient's age. Repeat MRI of brain reported: IMPRESSION: 1. Acute infarcts in the right prasad radiata , left parietal subcortical region, posteromedial left temporal lobe. Given the bilaterality, correlate for thromboembolic, vasospastic etiology 2. Moderate to advanced chronic microvascular ischemic changes. 3. Mild global cerebral volume loss. MRI/MRA of the brain reported: IMPRESSION: 1. High-grade stenosis in the left intracranial ICA. 2. Short-segment occlusion of distal M2 segment of the left MCA. 3. Short-segment moderate stenosis of the proximal A2 segment of the left GILMA. 4. Short-segment occlusion of A3 segment of the right GILMA. 5. Moderate stenosis of the proximal basilar artery. 6. Hypoplastic right vertebral artery short-segment foci of high-grade stenosis and occlusion of the V3 segment. Critical Result: Large vessel occlusion Chest xry reported: IMPRESSION: No evidence of acute disease in the chest. Renal ultrasound revealed: FINDINGS: The right kidney measures 10 cm in length, which is normal in size. There is normal echogenicity of the right kidney. No hydronephrosis. The left kidney measures 10 cm in length, which is normal in size. There is normal echogenicity of the left kidney. No hydronephrosis. Bladder mass measuring 7.3 cm. IMPRESSION: Possible hyperechoic bladder mass. Cystoscopy recommended Cystogram reported; IMPRESSION: A large bladder diverticulum is seen at the bladder dome with an additional smaller diverticulum seen just laterally. EKG reveals sinus rhythm with no specific ST-T changes. Tele reveals sinus rhythm Echocardiogram reported: Left ventricle: Concentric left ventricular hypertrophy was seen. LVEF was 60-65%. There was no gross wall motion abnormality. Right ventricle was normal sized with normal systolic function. Left atrium was dilated. Right atrium was normal sized. Aortic valve: Aortic valve was trileaflet. There was no aortic insufficiency/stenosis. There was trivial mitral regurgitation. There was no tricuspid regurgitation. There was no pulmonary valve insufficiency. There was no pericardial effusion. As there was no good tricuspid regurgitation jet, right ventricular systolic pressure could not be estimated. There was no echocardiographic evidence for pulmonary hypertension. IVC was normal sized with normal respiratory variation. CLAUDY did not reveal any Cardiac source for Emboli Patient is a 69-year-old gentleman who presented with lower extremity weakness. Imaging/CT/MRI has revealed CVA. Acute coronary syndrome is not considered at this point. Cardiac etiology for presentation is less likely. CVA, acute Morbid obesity Diabetes mellitus Hypertension Hiatal hernia GI bleeding, history of CKD Kidney mass s/p cystoscopy Bladder Diverticulum Cardiac suggestion for management: Manage on telemetry Follow-up electrolytes and kidney function tests and correct abnormalities Aspirin daily High potency statin Management / goal of blood pressure as per Neurology Status post CLAUDY revealing no cardiac source of emboli observed Neurology follow up Further evaluation and management depends on the above and clinical course A total of 55 minutes was spent reviewing the patient record, examining the patient, making a diagnostic and therapeutic plan, discussing this plan with medical personnel, following up on diagnostic studies and following the patient for clinical stability excluding any and all procedures. At least 50% of this time was spent in direct, [id number] contact. Thank you for allowing me to participate in this patient's care. Further recommendations will depend on patient's clinical course. Please do not hesitate to contact me if you have any questions or concerns. This medical document was created using electronic medical record system with [employer] computerized dictation system. Although this document has been carefully reviewed, there may still be some phonetic and typographical errors. These areas are purely typographical due to the imperfection of the software programs, and do not reflect any compromise in the patient's medical care. Plan discussed with: Patient, Other (nurse) NEVAEH FALCON MD Dec 16, 2024 06:03
[2024-12-16 10:42] LABS: Chloride 105 mmol/L (98-107); Potassium 4.6 mmol/L (3.5-5.1)
[2024-12-16 10:43] LABS: Anion Gap 6 (5-15); Calcium 8.9 mg/dL (8.7-10.4); Carbon Dioxide 25 mmol/L (20-31)
[2024-12-16 10:48] LABS: Blood Urea Nitrogen 17 mg/dL (9-23)
[2024-12-16 10:54] LABS: Glucose 181 mg/dL (74-106); Sodium 136 mmol/L (136-145)
--- NOTE | 2024-12-16 13:44 | DVHPN2 ---
Progress Note Date Seen: Dec 16, 2024 Medical Necessity Reason Pt with a Central, PICC or Fol: Yes The following are medically ne: Link Catheter Objective vital signs Vital Sign Date Time Temp Pulse Resp B/P (MAP) Pulse Ox O2 Delivery O2 Flow Rate FiO2 12/16/24 12:38 177/104 12/16/24 09:09 98.0 63 18 99 98.0 12/15/24 20:00 Room Air* 0 21 Total Intake and Output 12/15/24 12/15/24 12/16/24 15:00 23:00 07:00 Intake Total 736 ml Output Total 575 ml 800 ml Balance -575 ml -64 ml medications Current Medications Medications Dose Ordered Sig/Abilio Route Start Time Stop Time Status Last Admin Dose Admin Acetaminophen/ Hydrocodone Bitart 1 tab Q4HP PRN PO 12/09/24 11:00 12/09/24 21:12 1 TAB Ondansetron HCl 4 mg Q4HP PRN IV 12/09/24 11:00 12/10/24 16:44 4 MG Docusate Sodium 100 mg BIDPRN PRN PO 12/09/24 11:00 12/13/24 10:22 100 MG Enoxaparin Sodium 40 mg DAILY SC 12/10/24 10:00 12/16/24 10:14 40 MG Acetaminophen 650 mg Q6HP PRN PO 12/09/24 11:00 Morphine Sulfate 2 mg Q4HPRN PRN IV 12/09/24 11:00 Nitroglycerin 0.4 mg Q5MINP PRN SL 12/09/24 11:00 Morphine Sulfate 2 mg Q30M PRN IV 12/09/24 11:00 Diagnostic Test (Pha) 1 strip ACHS 12/09/24 11:30 12/16/24 11:30 1 STRIP Insulin Human Regular ACHS SC 12/09/24 11:30 12/16/24 06:09 2 UNITS Dextrose 50 ml UD PRN IV 12/09/24 11:00 Hydralazine HCl 10 mg Q6HP PRN IV 12/09/24 13:00 12/16/24 12:38 10 MG Atorvastatin Calcium 80 mg HS PO 12/09/24 22:00 12/15/24 22:17 80 MG Aspirin 81 mg DAILY PO 12/09/24 13:15 12/16/24 09:59 81 MG Pantoprazole Sodium 40 mg DAILY IV 12/11/24 10:00 12/16/24 09:58 40 MG Losartan Potassium 50 mg BID PO 12/10/24 22:00 12/16/24 10:14 50 MG Clonidine HCl 0.2 mg BID PO 12/11/24 16:45 12/16/24 10:14 0.2 MG Examination: GENERAL:Normal, CVS:Normal laboratory and microbiology Laboratory Tests 12/16/24 10:17 12/15/24 13:25 Test 12/16/24 10:17 Range/Units Serum Glucose 181 H 74-106 mg/dL Microbiology Date/Time Source Procedure Growth Status 12/12/24 15:15 Urine - Catheterized Urine Culture - Final Complete Problem List/Assessment/Plan Problem List/Assessment/Plan Acute kidney injury on Chronic kidney disease IIIb hemodynamic mediated in the setting of hypertensive urgency Hypertensive urgency secondary to noncompliance Acute CVA Diabetes Obesity Proteinuria bladder mass-> bladder Diverticulum Increased urine output Kidney ultrasound--bladder mass-urology consulted Blood Pressure control ARB started continue to monitor link stable from renal standpoint Plan discussed with: Patient XIANG HENAO MD Dec 16, 2024 13:43
--- NOTE | 2024-12-16 16:39 | DVHPN2 ---
Progress Note - Dictate Date Seen: Dec 16, 2024 Medical Necessity Reason Pt with a Central, PICC or Fol: Yes The following are medically ne: Gonzalez Catheter vital signs Vital Sign Date Time Temp Pulse Resp B/P (MAP) Pulse Ox O2 Delivery O2 Flow Rate FiO2 12/16/24 13:00 98.0 97 19 170/99 (122) 97 98.0 12/15/24 20:00 Room Air* 0 21 Total Intake and Output 12/15/24 12/15/24 12/16/24 15:00 23:00 07:00 Intake Total 736 ml Output Total 575 ml 800 ml Balance -575 ml -64 ml medications Current Medications Medications Dose Ordered Sig/Abilio Route Start Time Stop Time Status Last Admin Dose Admin Acetaminophen/ Hydrocodone Bitart 1 tab Q4HP PRN PO 12/09/24 11:00 12/09/24 21:12 1 TAB Ondansetron HCl 4 mg Q4HP PRN IV 12/09/24 11:00 12/10/24 16:44 4 MG Docusate Sodium 100 mg BIDPRN PRN PO 12/09/24 11:00 12/13/24 10:22 100 MG Enoxaparin Sodium 40 mg DAILY SC 12/10/24 10:00 12/16/24 10:14 40 MG Acetaminophen 650 mg Q6HP PRN PO 12/09/24 11:00 Morphine Sulfate 2 mg Q4HPRN PRN IV 12/09/24 11:00 Nitroglycerin 0.4 mg Q5MINP PRN SL 12/09/24 11:00 Morphine Sulfate 2 mg Q30M PRN IV 12/09/24 11:00 Diagnostic Test (Pha) 1 strip ACHS 12/09/24 11:30 12/16/24 11:30 1 STRIP Insulin Human Regular ACHS SC 12/09/24 11:30 12/16/24 11:30 4 UNITS Dextrose 50 ml UD PRN IV 12/09/24 11:00 Hydralazine HCl 10 mg Q6HP PRN IV 12/09/24 13:00 12/16/24 12:38 10 MG Atorvastatin Calcium 80 mg HS PO 12/09/24 22:00 12/15/24 22:17 80 MG Aspirin 81 mg DAILY PO 12/09/24 13:15 2/25/25 09:59 81 MG Pantoprazole Sodium 40 mg DAILY IV 12/11/24 10:00 12/16/24 09:58 40 MG Losartan Potassium 50 mg BID PO 12/10/24 22:00 12/16/24 10:14 50 MG Clonidine HCl 0.2 mg BID PO 12/11/24 16:45 12/16/24 10:14 0.2 MG objective General Appearance: alert, no distress HEENT: EOMI, PERRLA, normal external inspect of ears, no icterus, no nasal drainage Neck: no carotid bruit, no jugular venous distention (JVD), no lymphadenopathy Chest: normal thorax Respiratory: clear to auscultation, normal air movement Cardiovascular: regular rate and rhythm, no diastolic murmur, no jugular venous distention (JVD), no rub, no systolic murmur Abdominal: soft, no hepatomegaly, no mass, no splenomegaly, no tenderness Musculoskeletal: no joint tenderness, no swelling Extremities: normal pulses, no calf tenderness, no clubbing, no cyanosis, no edema Skin: no bruising, no jaundice, no rash Neurological: alert, No focal deficit laboratory and microbiology Laboratory Tests 12/16/24 10:17 12/15/24 13:25 Test 12/16/24 10:17 Range/Units Serum Glucose 181 H 74-106 mg/dL Problem List 1. Hypertensive urgency Cardiology conult 2. Bilateral lower extremity weakness Medication, monitoring 3. Obesity Diet education, monitor 4. DM II w/ hyperglycemia Insulin Sliding Scale 5. HLD Medication, monitoring 6. GERD Medication, monitoring 7. CVA with residual defects Neurology consult 8. CKD 3B Medication, monitoring 9. Acute CVA MRI of Brain Assessment/Plan Subjective: Patient is awake and alert. Objective: Second MRI shows another acute CVA. Patient was seen and evaluated by neurology, who are recommending a higher level of care. Patient has high-grade stenosis of the left intracranial ICA. Patient was updated on the plan of care. I attempted to call the patients today, but she was unavailable. Plan: Higher level of care transfer. Patient needs vascular surgery for repeat CVA. Monitor neuro status. Plan discussed with: Patient, Other VITOR SCHULTZ NP Dec 16, 2024 16:39
--- NOTE | 2024-12-16 16:44 | DVHPN2 ---
Progress Note Date Seen: Dec 16, 2024 Resident Creating Document: FADY RAMÍREZ RESIDENT Medical Necessity Reason Pt with a Central, PICC or Fol: Yes The following are medically ne: Gonzalez Catheter Subjective Review of Systems Patient seen at bedside Alert last bowel movement today no nausea or vomiting tolerating diet' No new complaints. Objective vital signs Vital Sign Date Time Temp Pulse Resp B/P (MAP) Pulse Ox O2 Delivery O2 Flow Rate FiO2 12/16/24 13:00 98.0 97 19 170/99 (122) 97 98.0 12/15/24 20:00 Room Air* 0 21 Total Intake and Output 12/15/24 12/15/24 12/16/24 15:00 23:00 07:00 Intake Total 736 ml Output Total 575 ml 800 ml Balance -575 ml -64 ml medications Current Medications Medications Dose Ordered Sig/Abilio Route Start Time Stop Time Status Last Admin Dose Admin Acetaminophen/ Hydrocodone Bitart 1 tab Q4HP PRN PO 12/09/24 11:00 12/09/24 21:12 1 TAB Ondansetron HCl 4 mg Q4HP PRN IV 12/09/24 11:00 12/10/24 16:44 4 MG Docusate Sodium 100 mg BIDPRN PRN PO 12/09/24 11:00 12/13/24 10:22 100 MG Enoxaparin Sodium 40 mg DAILY SC 12/10/24 10:00 12/16/24 10:14 40 MG Acetaminophen 650 mg Q6HP PRN PO 12/09/24 11:00 Morphine Sulfate 2 mg Q4HPRN PRN IV 12/09/24 11:00 Nitroglycerin 0.4 mg Q5MINP PRN SL 12/09/24 11:00 Morphine Sulfate 2 mg Q30M PRN IV 12/09/24 11:00 Diagnostic Test (Pha) 1 strip ACHS 12/09/24 11:30 12/16/24 11:30 1 STRIP Insulin Human Regular ACHS SC 12/09/24 11:30 12/16/24 11:30 4 UNITS Dextrose 50 ml UD PRN IV 12/09/24 11:00 Hydralazine HCl 10 mg Q6HP PRN IV 12/09/24 13:00 12/16/24 12:38 10 MG Atorvastatin Calcium 80 mg HS PO 12/09/24 22:00 12/15/24 22:17 80 MG Aspirin 81 mg DAILY PO 12/09/24 13:15 12/16/24 09:59 81 MG Pantoprazole Sodium 40 mg DAILY IV 12/11/24 10:00 12/16/24 09:58 40 MG Losartan Potassium 50 mg BID PO 12/10/24 22:00 12/16/24 10:14 50 MG Clonidine HCl 0.2 mg BID PO 12/11/24 16:45 12/16/24 10:14 0.2 MG Examination: GENERAL:Normal, HEENT:Normal, NECK:Normal, LUNGS:Normal, CVS:Normal, ABDOMEN:Normal, MSK:Normal, SKIN:Normal, NEURO:Normal laboratory and microbiology Laboratory Tests 12/16/24 10:17 12/15/24 13:25 Test 12/16/24 10:17 Range/Units Serum Glucose 181 H 74-106 mg/dL Microbiology Date/Time Source Procedure Growth Status 12/12/24 15:15 Urine - Catheterized Urine Culture - Final Complete Problem List/Assessment/Plan Problem List/Assessment/Plan CVA Left ICA high-grade stenosis History of GI bleeding Hiatal hernia Gastritis Colon polyp Bladder diverticulum Plan/recommendation EGD (09/05/24 ) 1. Large hiatal hernia about 10-12 cm with organoaxial rotation but no obstruction or significant volvulus Short-segment Rivera's but no evidence of acute esophagitis or ulceration 2. Mild gastritis within hiatal hernia sac and in the stomach 3. Slight difficulty in entering into the duodenal because of the large hiatal hernia but otherwise normal examination up to the 2nd and 3rd part of the duodenal -Continue Protonix 40 mg IV daily -Continue Carafate 1 g p.o. twice daily. -patient also seen Urology for blood diverticulum -Iron supplements recommended -GI team on standby if any bleeding -follow with GI service as outpatient for ongoing management of abdominal liver issues -supportive care from GI point of view Plan discussed with: Patient, Other (RN) FADY RAMÍREZ RESIDENT Dec 16, 2024 16:44
--- NOTE | 2024-12-16 23:52 | DVHPN2 ---
Progress Note - Dictate Date Seen: Dec 16, 2024 Medical Necessity Reason Pt with a Central, PICC or Fol: Yes The following are medically ne: Gonzalez Catheter Subjective Mr. Goldsmith is a 69 years old right-handed gentleman with a history of hypertension, diabetes, dyslipidemia, he came to the [facility] on 12/09/2024 with a chief complaint of bilateral leg weakness. At that time, he is alert, fully oriented, he provided the following history I saw him on 08/20/23 for syncope, 09/03/24 for metabolic encephalopathy (MRI: acute strokes) I have seen and examined the patient, I have discussed with his nurse, he was reports doing fine, alert and oriented, no new complaints On 12/13/2024, the patient was had follow-up MR brain scan. According to nurse note, I presumed the patient complained that he was able to walk before but not able to do so after he was admitted before the order of the 2nd MRI brain scan Social service input appreciated Urinalysis, 12/09/2024: WBC: 314, urine leukocyte esterase: 3+ WBC/HB/PLT/MCV, 12/09/2024: 4/12.8/207/85.3 HGB A1c, 07/2023: 6.1, 12/09/2024: 7.6 BUN/CR, 09/03/2024: 22/1.81, 12/09/2024: 12/1.62 TG/HDL/LDL/HDL, 12/09/2024: 172/277/203/46 Vitamin B12, 04/2024: 622 TSH, 04/2020 4:2.29 CLAUDY, 12/12/2024: 1. Left ventricle: Mild concentrated Left ventricular hypertrophy was seen. LVEF was 65%. There was no gross wall motion abnormality seen. 2. Right ventricle: Normal RV size with normal systolic function. 3. Left atrium: LA mildly enlarged 4. Right atrium: RA was normal 5. Mitral valve: Trace Mitral regurgitation, no significant stenosis, normal functioning valve 6. Left atrial appendage: No evidence of thrombus. 7. Aortic valve: Aortic valve was trileaflet. There was no Aortic stenosis/Insufficiency 8. Pulmonic valve: Trivial pulmonic insufficiency. No significant stenosis. 9. Tricuspid valve: Trace tricuspid regurgitation. 10. Interatrial septum: Negative color flow for shunt was observed. Bubble study was negative (normal) 11. Pericardium: No significant effusion. 12. Thoracic aorta: No significant plaquing. 13 No vegetation was seen. Echocardiogram, 12/10/2024: Left ventricle: Concentric left ventricular hypertrophy was seen. LVEF was 60-65%. There was no gross wall motion abnormality. Right ventricle was normal sized with normal systolic function. Left atrium was dilated. Right atrium was normal sized. Aortic valve: Aortic valve was trileaflet. There was no aortic insufficiency/stenosis. There was trivial mitral regurgitation. There was no tricuspid regurgitation. There was no pulmonary valve insufficiency. There was no pericardial effusion. As there was no good tricuspid regurgitation jet, right ventricular systolic pressure could not be estimated. There was no echocardiographic evidence for pulmonary hypertension. IVC was normal sized with normal respiratory variation MRI head, 08/03/2023: No acute findings. Small vessel chronic ischemic changes MRI head, 09/04/2024: Few small foci of acute ischemia, suspect embolic infarcts. Clinical correlation and continued follow-up is recommended. Consider further evaluation with CTA or MRA of the head and neck MRI head, 12/09/2024: 1. Small foci of acute ischemia in the right thalamus and left parietal cortex. No intracranial hemorrhage. 2. Extensive chronic microvascular ischemic changes, advanced for patient's age. MRI head, 12/13/2024: 1. Acute infarcts in the right prasad radiata , left parietal subcortical region, posteromedial left temporal lobe. Given the bilaterality, correlate for thromboembolic, vasospastic etiology 2. Moderate to advanced chronic microvascular ischemic changes. 3. Mild global cerebral volume loss (the right basal ganglia acute stroke is enlarged, new strokes in the left parietal lobe) MRA brain, neck, 12/09/2024: 1. High-grade stenosis in the left intracranial ICA. 2. Short-segment occlusion of distal M2 segment of the left MCA. 3. Short- segment moderate stenosis of the proximal A2 segment of the left GILMA. 4. Short- segment occlusion of A3 segment of the right GILMA. 5. Moderate stenosis of the proximal basilar artery. 6. Hypoplastic right vertebral artery short-segment foci of high-grade stenosis and occlusion of the V3 segment vital signs Vital Sign Date Time Temp Pulse Resp B/P (MAP) Pulse Ox O2 Delivery O2 Flow Rate FiO2 12/16/24 23:51 176/89 12/16/24 21:00 98.3 83 20 97 98.3 12/16/24 08:30 Room Air* 0 21 Total Intake and Output 12/15/24 12/15/24 12/16/24 15:00 23:00 07:00 Intake Total 736 ml Output Total 575 ml 800 ml Balance -575 ml -64 ml medications Current Medications Medications Dose Ordered Sig/Abilio Route Start Time Stop Time Status Last Admin Dose Admin Acetaminophen/ Hydrocodone Bitart 1 tab Q4HP PRN PO 12/09/24 11:00 12/09/24 21:12 1 TAB Ondansetron HCl 4 mg Q4HP PRN IV 12/09/24 11:00 12/10/24 16:44 4 MG Docusate Sodium 100 mg BIDPRN PRN PO 12/09/24 11:00 12/13/24 10:22 100 MG Enoxaparin Sodium 40 mg DAILY SC 12/10/24 10:00 12/16/24 10:14 40 MG Acetaminophen 650 mg Q6HP PRN PO 12/09/24 11:00 Morphine Sulfate 2 mg Q4HPRN PRN IV 12/09/24 11:00 Nitroglycerin 0.4 mg Q5MINP PRN SL 12/09/24 11:00 Morphine Sulfate 2 mg Q30M PRN IV 12/09/24 11:00 Diagnostic Test (Pha) 1 strip ACHS 12/09/24 11:30 12/16/24 22:13 1 STRIP Insulin Human Regular ACHS SC 12/09/24 11:30 12/16/24 22:19 6 UNITS Dextrose 50 ml UD PRN IV 12/09/24 11:00 Hydralazine HCl 10 mg Q6HP PRN IV 12/09/24 13:00 12/16/24 23:51 10 MG Atorvastatin Calcium 80 mg HS PO 12/09/24 22:00 12/16/24 21:58 80 MG Aspirin 81 mg DAILY PO 12/09/24 13:15 12/16/24 09:59 81 MG Pantoprazole Sodium 40 mg DAILY IV 12/11/24 10:00 12/16/24 09:58 40 MG Losartan Potassium 50 mg BID PO 12/10/24 22:00 12/16/24 21:57 50 MG Clonidine HCl 0.2 mg BID PO 12/11/24 16:45 12/16/24 21:58 0.2 MG objective General: the patient is well developed and nourished. No acute distress. MENTAL STATUS: Subjective SPEECH, LANGUAGE, HIGHER CORTICAL FUNCTION: no aphasia or dysathria. CRANIAL NERVES: Intact visual godfrey to confrontation. Pupils are equal, round and reactive. EOMs full and conjugate. No nystagmus. Facial sensation intact in all three divisions bilaterally. Mandibular strength intact. Facial muscles symmetrical and strength intact. SENSATION: Sensation to touch and pinprick is normal. MOTOR: Normal tone in the upper and lower extremity. Normal muscle bulk. No fasciculations. No abnormal movements or posturing. Muscle strength of the major groups in the upper extremities is 5/5. Muscle strength of the major groups in the lower extremities is right: 4-5/5. REFLEXES: Deep tendon reflexes are symmetrical. No pathological reflexes. CEREBELLAR/COORDINATION: Finger to nose is normal bilaterally. GAIT/STATION: deferred laboratory and microbiology Laboratory Tests 12/16/24 10:17 12/15/24 13:25 Test 12/16/24 10:17 Range/Units Serum Glucose 181 H 74-106 mg/dL Problem List Acute multiple strokes on admission, and he was more acute strokes in the MRI on 12/13/2024, ? Secondary to left ICA stenosis ? Cardiac or aorta emboli source Chronic stroke Left ICA high-grade stenosis History of GI bleeding with syncope, GI has cleared him to have antiplatelet treatment Assessment/Plan Monitoring Supportive treatment Telemetry Aspirin 81 mg daily Lipitor 80 mg daily Protonix, 40 mg daily Carafate 1 g b.i.d. DVT prophylaxis/Lovenox Syncope precautions discussed GI on case Trying to higher level of care Re: 1, Recurrent acute multiple strokes with unremarkable CLAUDY, telemetry record, 2 high-grade left IC stenosis Further address left high-grade ICA stenosis as outpatient This medical document was created using an electronic medical record system with [employer] dictation system. Although this document has been carefully reviewed, there may still be some phonetic and typographical errors. These areas are purely typographical due to imperfections of the software programs, and do not reflect any compromise in the patient's medical care. Prognosis poor Plan discussed with: Patient, Other GRACIE UMAÑA MD Dec 16, 2024 23:52
[2024-12-17] VITALS (9 sets, daily range): BP systolic 160–175; BP diastolic 80–100; PULSE 70–89; RESP 17–20; TEMP 97.7–98.2; O2SAT 95–100
--- NOTE | 2024-12-17 06:41 | DVHPN2 ---
Progress Note - Dictate Date Seen: Dec 17, 2024 Medical Necessity Reason Pt with a Central, PICC or Fol: Yes The following are medically ne: Gonzalez Catheter vital signs Vital Sign Date Time Temp Pulse Resp B/P (MAP) Pulse Ox O2 Delivery O2 Flow Rate FiO2 12/17/24 05:00 98.2 88 18 163/80 (107) 95 98.2 12/16/24 20:00 Room Air* 0 21 Total Intake and Output 12/16/24 12/16/24 12/17/24 15:00 23:00 07:00 Intake Total 650 ml 300 ml Output Total 400 ml 700 ml Balance 250 ml -400 ml medications Current Medications Medications Dose Ordered Sig/Abilio Route Start Time Stop Time Status Last Admin Dose Admin Acetaminophen/ Hydrocodone Bitart 1 tab Q4HP PRN PO 12/09/24 11:00 12/09/24 21:12 1 TAB Ondansetron HCl 4 mg Q4HP PRN IV 12/09/24 11:00 12/10/24 16:44 4 MG Docusate Sodium 100 mg BIDPRN PRN PO 12/09/24 11:00 12/13/24 10:22 100 MG Enoxaparin Sodium 40 mg DAILY SC 12/10/24 10:00 12/16/24 10:14 40 MG Acetaminophen 650 mg Q6HP PRN PO 12/09/24 11:00 Morphine Sulfate 2 mg Q4HPRN PRN IV 12/09/24 11:00 Nitroglycerin 0.4 mg Q5MINP PRN SL 12/09/24 11:00 Morphine Sulfate 2 mg Q30M PRN IV 12/09/24 11:00 Diagnostic Test (Pha) 1 strip ACHS 12/09/24 11:30 12/17/24 06:13 1 STRIP Insulin Human Regular ACHS SC 12/09/24 11:30 12/17/24 06:18 3 UNITS Dextrose 50 ml UD PRN IV 12/09/24 11:00 Hydralazine HCl 10 mg Q6HP PRN IV 12/09/24 13:00 12/16/24 23:51 10 MG Atorvastatin Calcium 80 mg HS PO 12/09/24 22:00 12/16/24 21:58 80 MG Aspirin 81 mg DAILY PO 12/09/24 13:15 12/16/24 09:59 81 MG Pantoprazole Sodium 40 mg DAILY IV 12/11/24 10:00 12/16/24 09:58 40 MG Losartan Potassium 50 mg BID PO 12/10/24 22:00 12/16/24 21:57 50 MG Clonidine HCl 0.2 mg BID PO 12/11/24 16:45 12/16/24 21:58 0.2 MG laboratory and microbiology Laboratory Tests 12/16/24 10:17 12/15/24 13:25 Test 12/16/24 10:17 Range/Units Serum Glucose 181 H 74-106 mg/dL Assessment/Plan Patient is a 69-year-old gentleman who presented to the hospital for worsening bilateral lower extremity weakness and swelling. He did have some headaches. He mentions that he has not been able to walk for the past 2 days. It is of note that the patient did have a CVA back in August 2024. Since that time he was able to walk with cane but for the past 2 days he is unable to. Cardiology was involved for cardiac aspects of care. He denies chest pains. He denies shortness of breath. He denies loss of consciousness. He denies dizziness. Morbidly obese. Not in acute distress. Not using accessory muscles of breathing. No JVD. Speaks slowly. Mucosa is pink and wet. No goiter. No carotid bruit. Lungs are clear to auscultation. Cardiac: Regular, no thrill/gallop. Abdomen is soft. There is no gross mass. Bowel sound is positive. Dorsalis pedis is 2+ bilateral Past medical history includes hypertension, diabetes mellitus, morbid obesity, history of CVA, CKD, old history of GI bleeding anemia, GERD, hyperlipidemia, hiatal hernia and old history of hepatitis-C. Does have history of smoking. Denies alcohol and drug abuse. Family history is positive for hypertension/CVA and heart murmur Echocardiogram of August 03, 2023 had reported mild concentric left ventricular hypertrophy, aortic sclerosis, ejection fraction of 65-70% and no vegetation Echocardiogram of August 2024 revealed ejection fraction of 60-65% Creatinine: 1.61 - 1.75 - 1.63 - 1.89 - 1.50 - 1.54 - 1.66 - 1.55 Potassium: 5.0 - 4.2 - 4.7 - 4.5 - 4.8 - 4.9 - 4.9 - 4.6 Troponin (high sensitive): 3 LDL: 203 CT of the head reported: IMPRESSION: 1. No acute intracranial process. 2. Moderate chronic microvascular ischemic changes. Repeat CT of head reported: IMPRESSION: 1. Generalized brain atrophy. 2. Small vessel ischemic/degenerative changes. 3. No acute intracranial hemorrhage, midline shift or mass effect. If symptoms persist, further evaluation with MRI is recommended. MRI of the brain revealed: IMPRESSION: 1. Small foci of acute ischemia in the right thalamus and left parietal cortex. No intracranial hemorrhage. 2. Extensive chronic microvascular ischemic changes, advanced for patient's age. Repeat MRI of brain reported: IMPRESSION: 1. Acute infarcts in the right prasad radiata , left parietal subcortical region, posteromedial left temporal lobe. Given the bilaterality, correlate for thromboembolic, vasospastic etiology 2. Moderate to advanced chronic microvascular ischemic changes. 3. Mild global cerebral volume loss. MRI/MRA of the brain reported: IMPRESSION: 1. High-grade stenosis in the left intracranial ICA. 2. Short-segment occlusion of distal M2 segment of the left MCA. 3. Short-segment moderate stenosis of the proximal A2 segment of the left GILMA. 4. Short-segment occlusion of A3 segment of the right GILMA. 5. Moderate stenosis of the proximal basilar artery. 6. Hypoplastic right vertebral artery short-segment foci of high-grade stenosis and occlusion of the V3 segment. Critical Result: Large vessel occlusion Chest xry reported: IMPRESSION: No evidence of acute disease in the chest. Renal ultrasound revealed: FINDINGS: The right kidney measures 10 cm in length, which is normal in size. There is normal echogenicity of the right kidney. No hydronephrosis. The left kidney measures 10 cm in length, which is normal in size. There is normal echogenicity of the left kidney. No hydronephrosis. Bladder mass measuring 7.3 cm. IMPRESSION: Possible hyperechoic bladder mass. Cystoscopy recommended Cystogram reported; IMPRESSION: A large bladder diverticulum is seen at the bladder dome with an additional smaller diverticulum seen just laterally. EKG reveals sinus rhythm with no specific ST-T changes. Tele reveals sinus rhythm Echocardiogram reported: Left ventricle: Concentric left ventricular hypertrophy was seen. LVEF was 60-65%. There was no gross wall motion abnormality. Right ventricle was normal sized with normal systolic function. Left atrium was dilated. Right atrium was normal sized. Aortic valve: Aortic valve was trileaflet. There was no aortic insufficiency/stenosis. There was trivial mitral regurgitation. There was no tricuspid regurgitation. There was no pulmonary valve insufficiency. There was no pericardial effusion. As there was no good tricuspid regurgitation jet, right ventricular systolic pressure could not be estimated. There was no echocardiographic evidence for pulmonary hypertension. IVC was normal sized with normal respiratory variation. CLAUDY did not reveal any Cardiac source for Emboli Patient is a 69-year-old gentleman who presented with lower extremity weakness. Imaging/CT/MRI has revealed CVA. Acute coronary syndrome is not considered at this point. Cardiac etiology for presentation is less likely. CVA, acute Morbid obesity Diabetes mellitus Hypertension Hiatal hernia GI bleeding, history of CKD Kidney mass s/p cystoscopy Bladder Diverticulum Cardiac suggestion for management: Manage on telemetry Follow-up electrolytes and kidney function tests and correct abnormalities Aspirin daily High potency statin Management / goal of blood pressure as per Neurology Status post CLAUDY revealing no cardiac source of emboli observed Neurology follow up Cardiac miranda, stable Further evaluation and management depends on the above and clinical course A total of 55 minutes was spent reviewing the patient record, examining the patient, making a diagnostic and therapeutic plan, discussing this plan with medical personnel, following up on diagnostic studies and following the patient for clinical stability excluding any and all procedures. At least 50% of this time was spent in direct, [id number] contact. Thank you for allowing me to participate in this patient's care. Further recommendations will depend on patient's clinical course. Please do not hesitate to contact me if you have any questions or concerns. This medical document was created using electronic medical record system with [employer] computerized dictation system. Although this document has been carefully reviewed, there may still be some phonetic and typographical errors. These areas are purely typographical due to the imperfection of the software programs, and do not reflect any compromise in the patient's medical care. Plan discussed with: Patient NEVAEH FALCON MD Dec 17, 2024 06:41
--- NOTE | 2024-12-17 14:15 | DVHPN2 ---
Progress Note - Dictate Date Seen: Dec 17, 2024 Medical Necessity Reason Pt with a Central, PICC or Fol: Yes The following are medically ne: Gonzalez Catheter vital signs Vital Sign Date Time Temp Pulse Resp B/P (MAP) Pulse Ox O2 Delivery O2 Flow Rate FiO2 12/17/24 13:25 160/88 12/17/24 13:20 97.7 77 18 100 97.7 12/17/24 08:00 Room Air* 0 21 Total Intake and Output 12/16/24 12/16/24 12/17/24 15:00 23:00 07:00 Intake Total 650 ml 300 ml Output Total 400 ml 700 ml Balance 250 ml -400 ml medications Current Medications Medications Dose Ordered Sig/Abilio Route Start Time Stop Time Status Last Admin Dose Admin Acetaminophen/ Hydrocodone Bitart 1 tab Q4HP PRN PO 12/09/24 11:00 12/17/24 10:06 1 TAB Ondansetron HCl 4 mg Q4HP PRN IV 12/09/24 11:00 12/10/24 16:44 4 MG Docusate Sodium 100 mg BIDPRN PRN PO 12/09/24 11:00 12/13/24 10:22 100 MG Enoxaparin Sodium 40 mg DAILY SC 12/10/24 10:00 12/17/24 09:57 40 MG Acetaminophen 650 mg Q6HP PRN PO 12/09/24 11:00 Morphine Sulfate 2 mg Q4HPRN PRN IV 12/09/24 11:00 Nitroglycerin 0.4 mg Q5MINP PRN SL 12/09/24 11:00 Morphine Sulfate 2 mg Q30M PRN IV 12/09/24 11:00 Diagnostic Test (Pha) 1 strip ACHS 12/09/24 11:30 12/17/24 11:30 1 STRIP Insulin Human Regular ACHS SC 12/09/24 11:30 12/17/24 12:02 4 UNITS Dextrose 50 ml UD PRN IV 12/09/24 11:00 Atorvastatin Calcium 80 mg HS PO 12/09/24 22:00 12/16/24 21:58 80 MG Aspirin 81 mg DAILY PO 12/09/24 13:15 12/17/24 09:56 81 MG Pantoprazole Sodium 40 mg DAILY IV 12/11/24 10:00 12/17/24 09:54 40 MG Losartan Potassium 50 mg BID PO 12/10/24 22:00 12/17/24 09:57 50 MG Clonidine HCl 0.2 mg BID PO 12/11/24 16:45 12/17/24 09:55 0.2 MG Hydralazine HCl 20 mg Q6HP PRN IV 12/17/24 14:00 objective General Appearance: alert, no distress HEENT: EOMI, PERRLA, normal external inspect of ears, no icterus, no nasal drainage Neck: no carotid bruit, no jugular venous distention (JVD), no lymphadenopathy Chest: normal thorax Respiratory: clear to auscultation, normal air movement Cardiovascular: regular rate and rhythm, no diastolic murmur, no jugular venous distention (JVD), no rub, no systolic murmur Abdominal: soft, no hepatomegaly, no mass, no splenomegaly, no tenderness Musculoskeletal: no joint tenderness, no swelling Extremities: normal pulses, no calf tenderness, no clubbing, no cyanosis, no edema Skin: no bruising, no jaundice, no rash Neurological: alert, No focal deficit laboratory and microbiology Laboratory Tests 12/16/24 10:17 12/15/24 13:25 Test 12/16/24 10:17 Range/Units Serum Glucose 181 H 74-106 mg/dL Problem List 1. Hypertensive urgency Cardiology conult 2. Bilateral lower extremity weakness Medication, monitoring 3. Obesity Diet education, monitor 4. DM II w/ hyperglycemia Insulin Sliding Scale 5. HLD Medication, monitoring 6. GERD Medication, monitoring 7. CVA with residual defects Neurology consult 8. CKD 3B Medication, monitoring 9. Acute CVA MRI of Brain Assessment/Plan Subjective: Patient is awake and alert. Objective: I attempted to call patient's Melida twice and it's going straight to voicemail. Apparently patient has told social media marketing specialist he does not want higher level of care. Patient has had two strokes noted on this admission. Attempting to reach out to patient's to see if she is in agreement with this plan since patient has had two strokes. Patient is able to answer questions appropriately. Plan: Patient has a large vessel occlusion needing higher level of care due to risk of multiple strokes. Patient has had two strokes on this admission. According to social media marketing specialist. Transfer is now on hold. Plan is attempt to discuss this with patient's spouse to determine goals of care. Plan discussed with: Patient, Other VITOR SCHULTZ NP Dec 17, 2024 14:15
[2024-12-17] MEDS: hydrALAZINE HCL 20 MG/ML VL IV PRN ×2 (14:22→22:20)
--- NOTE | 2024-12-17 15:33 | DVHPN2 ---
Progress Note Date Seen: Dec 17, 2024 Medical Necessity Reason Pt with a Central, PICC or Fol: Yes The following are medically ne: Link Catheter Objective vital signs Vital Sign Date Time Temp Pulse Resp B/P (MAP) Pulse Ox O2 Delivery O2 Flow Rate FiO2 12/17/24 14:22 160/88 12/17/24 13:20 97.7 77 18 100 97.7 12/17/24 08:00 Room Air* 0 21 Total Intake and Output 12/16/24 12/16/24 12/17/24 15:00 23:00 07:00 Intake Total 650 ml 300 ml Output Total 400 ml 700 ml Balance 250 ml -400 ml medications Current Medications Medications Dose Ordered Sig/Abilio Route Start Time Stop Time Status Last Admin Dose Admin Acetaminophen/ Hydrocodone Bitart 1 tab Q4HP PRN PO 12/09/24 11:00 12/17/24 10:06 1 TAB Ondansetron HCl 4 mg Q4HP PRN IV 12/09/24 11:00 12/10/24 16:44 4 MG Docusate Sodium 100 mg BIDPRN PRN PO 12/09/24 11:00 12/13/24 10:22 100 MG Enoxaparin Sodium 40 mg DAILY SC 12/10/24 10:00 12/17/24 09:57 40 MG Acetaminophen 650 mg Q6HP PRN PO 12/09/24 11:00 Morphine Sulfate 2 mg Q4HPRN PRN IV 12/09/24 11:00 Nitroglycerin 0.4 mg Q5MINP PRN SL 12/09/24 11:00 Morphine Sulfate 2 mg Q30M PRN IV 12/09/24 11:00 Diagnostic Test (Pha) 1 strip ACHS 12/09/24 11:30 12/17/24 11:30 1 STRIP Insulin Human Regular ACHS SC 12/09/24 11:30 12/17/24 12:02 4 UNITS Dextrose 50 ml UD PRN IV 12/09/24 11:00 Atorvastatin Calcium 80 mg HS PO 12/09/24 22:00 12/16/24 21:58 80 MG Aspirin 81 mg DAILY PO 12/09/24 13:15 12/17/24 09:56 81 MG Pantoprazole Sodium 40 mg DAILY IV 12/11/24 10:00 12/17/24 09:54 40 MG Losartan Potassium 50 mg BID PO 12/10/24 22:00 12/17/24 09:57 50 MG Clonidine HCl 0.2 mg BID PO 12/11/24 16:45 12/17/24 09:55 0.2 MG Hydralazine HCl 10 mg Q6HP PRN IV 12/17/24 15:30 laboratory and microbiology Laboratory Tests 12/16/24 10:17 12/15/24 13:25 Test 12/16/24 10:17 Range/Units Serum Glucose 181 H 74-106 mg/dL Microbiology Date/Time Source Procedure Growth Status 12/12/24 15:15 Urine - Catheterized Urine Culture - Final Complete Problem List/Assessment/Plan Problem List/Assessment/Plan Acute kidney injury on Chronic kidney disease IIIb hemodynamic mediated in the setting of hypertensive urgency Hypertensive urgency secondary to noncompliance Acute CVA Diabetes Obesity Proteinuria bladder mass-> bladder Diverticulum Increased urine output Kidney ultrasound--bladder mass-urology consulted Blood Pressure control ARB started continue to monitor link stable from renal standpoint Plan discussed with: Patient XIANG HENAO MD Dec 17, 2024 15:33
--- NOTE | 2024-12-17 17:55 | DVHPN2 ---
Progress Note Date Seen: Dec 17, 2024 Resident Creating Document: FADY RAMÍREZ RESIDENT Medical Necessity Reason Pt with a Central, PICC or Fol: Yes The following are medically ne: Gonzalez Catheter Subjective Review of Systems No new complaints. Objective vital signs Vital Sign Date Time Temp Pulse Resp B/P (MAP) Pulse Ox O2 Delivery O2 Flow Rate FiO2 12/17/24 14:22 160/88 12/17/24 13:20 97.7 77 18 100 97.7 12/17/24 08:00 Room Air* 0 21 Total Intake and Output 12/16/24 12/16/24 12/17/24 15:00 23:00 07:00 Intake Total 650 ml 300 ml Output Total 400 ml 700 ml Balance 250 ml -400 ml medications Current Medications Medications Dose Ordered Sig/Abilio Route Start Time Stop Time Status Last Admin Dose Admin Acetaminophen/ Hydrocodone Bitart 1 tab Q4HP PRN PO 12/09/24 11:00 12/17/24 10:06 1 TAB Ondansetron HCl 4 mg Q4HP PRN IV 12/09/24 11:00 12/10/24 16:44 4 MG Docusate Sodium 100 mg BIDPRN PRN PO 12/09/24 11:00 12/13/24 10:22 100 MG Enoxaparin Sodium 40 mg DAILY SC 12/10/24 10:00 12/17/24 09:57 40 MG Acetaminophen 650 mg Q6HP PRN PO 12/09/24 11:00 Morphine Sulfate 2 mg Q4HPRN PRN IV 12/09/24 11:00 Nitroglycerin 0.4 mg Q5MINP PRN SL 12/09/24 11:00 Morphine Sulfate 2 mg Q30M PRN IV 12/09/24 11:00 Diagnostic Test (Pha) 1 strip ACHS 12/09/24 11:30 12/17/24 11:30 1 STRIP Insulin Human Regular ACHS SC 12/09/24 11:30 12/17/24 12:02 4 UNITS Dextrose 50 ml UD PRN IV 12/09/24 11:00 Atorvastatin Calcium 80 mg HS PO 12/09/24 22:00 12/16/24 21:58 80 MG Aspirin 81 mg DAILY PO 12/09/24 13:15 12/17/24 09:56 81 MG Pantoprazole Sodium 40 mg DAILY IV 12/11/24 10:00 12/17/24 09:54 40 MG Losartan Potassium 50 mg BID PO 12/10/24 22:00 12/17/24 09:57 50 MG Clonidine HCl 0.2 mg BID PO 12/11/24 16:45 12/17/24 09:55 0.2 MG Hydralazine HCl 10 mg Q6HP PRN IV 12/17/24 15:30 Examination: GENERAL:Normal, HEENT:Normal, NECK:Normal, LUNGS:Normal, CVS:Normal, ABDOMEN:Normal, MSK:Normal, SKIN:Normal, NEURO:Normal laboratory and microbiology Laboratory Tests 12/16/24 10:17 12/15/24 13:25 Test 12/16/24 10:17 Range/Units Serum Glucose 181 H 74-106 mg/dL Microbiology Date/Time Source Procedure Growth Status 12/12/24 15:15 Urine - Catheterized Urine Culture - Final Complete Problem List/Assessment/Plan Problem List/Assessment/Plan CVA Left ICA high-grade stenosis History of GI bleeding Hiatal hernia Gastritis Colon polyp Bladder diverticulum Plan/recommendation EGD (09/05/24 ) 1. Large hiatal hernia about 10-12 cm with organoaxial rotation but no obstruction or significant volvulus Short-segment Rivera's but no evidence of acute esophagitis or ulceration 2. Mild gastritis within hiatal hernia sac and in the stomach 3. Slight difficulty in entering into the duodenal because of the large hiatal hernia but otherwise normal examination up to the 2nd and 3rd part of the duodenal -Continue Protonix 40 mg po daily -Continue Carafate 1 g p.o. twice daily. -patient also seen Urology for blood diverticulum -Iron supplements recommended -GI team on standby if any bleeding -follow with GI service as outpatient for ongoing management of abdominal liver issues -supportive care from GI point of view Plan discussed with: Patient, Other (RN) FADY RAMÍREZ RESIDENT Dec 17, 2024 17:55
[2024-12-18] VITALS (9 sets, daily range): BP systolic 157–185; BP diastolic 85–101; PULSE 18–101; RESP 16–98; TEMP 97.8–98.5; O2SAT 95–99
--- NOTE | 2024-12-18 07:28 | DVHPN2 ---
Progress Note - Dictate Date Seen: Dec 18, 2024 Medical Necessity Reason Pt with a Central, PICC or Fol: Yes The following are medically ne: Gonzalez Catheter vital signs Vital Sign Date Time Temp Pulse Resp B/P (MAP) Pulse Ox O2 Delivery O2 Flow Rate FiO2 12/18/24 04:41 98.2 87 20 157/99 (118) 99 98.2 12/17/24 20:00 Room Air* 0 21 Total Intake and Output 12/17/24 12/17/24 12/18/24 15:00 23:00 07:00 Intake Total 1175 ml 300 ml Output Total 255 ml 600 ml Balance 920 ml -300 ml medications Current Medications Medications Dose Ordered Sig/Abilio Route Start Time Stop Time Status Last Admin Dose Admin Acetaminophen/ Hydrocodone Bitart 1 tab Q4HP PRN PO 12/09/24 11:00 12/17/24 10:06 1 TAB Ondansetron HCl 4 mg Q4HP PRN IV 12/09/24 11:00 12/10/24 16:44 4 MG Docusate Sodium 100 mg BIDPRN PRN PO 12/09/24 11:00 12/13/24 10:22 100 MG Enoxaparin Sodium 40 mg DAILY SC 12/10/24 10:00 12/17/24 09:57 40 MG Acetaminophen 650 mg Q6HP PRN PO 12/09/24 11:00 Morphine Sulfate 2 mg Q4HPRN PRN IV 12/09/24 11:00 Nitroglycerin 0.4 mg Q5MINP PRN SL 12/09/24 11:00 Morphine Sulfate 2 mg Q30M PRN IV 12/09/24 11:00 Diagnostic Test (Pha) 1 strip ACHS 12/09/24 11:30 12/18/24 06:23 1 STRIP Insulin Human Regular ACHS SC 12/09/24 11:30 12/17/24 21:22 8 UNITS Dextrose 50 ml UD PRN IV 12/09/24 11:00 Atorvastatin Calcium 80 mg HS PO 12/09/24 22:00 12/17/24 21:05 80 MG Aspirin 81 mg DAILY PO 12/09/24 13:15 12/17/24 09:56 81 MG Pantoprazole Sodium 40 mg DAILY IV 12/11/24 10:00 12/17/24 09:54 40 MG Losartan Potassium 50 mg BID PO 12/10/24 22:00 12/17/24 21:08 50 MG Clonidine HCl 0.2 mg BID PO 12/11/24 16:45 12/17/24 21:07 0.2 MG Hydralazine HCl 10 mg Q6HP PRN IV 12/17/24 15:30 12/17/24 22:20 10 MG laboratory and microbiology Laboratory Tests 12/16/24 10:17 12/15/24 13:25 Test 12/16/24 10:17 Range/Units Serum Glucose 181 H 74-106 mg/dL Assessment/Plan Patient is a 69-year-old gentleman who presented to the hospital for worsening bilateral lower extremity weakness and swelling. He did have some headaches. He mentions that he has not been able to walk for the past 2 days. It is of note that the patient did have a CVA back in August 2024. Since that time he was able to walk with cane but for the past 2 days he is unable to. Cardiology was involved for cardiac aspects of care. He denies chest pains. He denies shortness of breath. He denies loss of consciousness. He denies dizziness. Morbidly obese. Not in acute distress. Not using accessory muscles of breathing. No JVD. Speaks slowly. Mucosa is pink and wet. No goiter. No carotid bruit. Lungs are clear to auscultation. Cardiac: Regular, no thrill/gallop. Abdomen is soft. There is no gross mass. Bowel sound is positive. Dorsalis pedis is 2+ bilateral Past medical history includes hypertension, diabetes mellitus, morbid obesity, history of CVA, CKD, old history of GI bleeding anemia, GERD, hyperlipidemia, hiatal hernia and old history of hepatitis-C. Does have history of smoking. Denies alcohol and drug abuse. Family history is positive for hypertension/CVA and heart murmur Echocardiogram of August 03, 2023 had reported mild concentric left ventricular hypertrophy, aortic sclerosis, ejection fraction of 65-70% and no vegetation Echocardiogram of August 2024 revealed ejection fraction of 60-65% Creatinine: 1.61 - 1.75 - 1.63 - 1.89 - 1.50 - 1.54 - 1.66 - 1.55 Potassium: 5.0 - 4.2 - 4.7 - 4.5 - 4.8 - 4.9 - 4.9 - 4.6 Troponin (high sensitive): 3 LDL: 203 CT of the head reported: IMPRESSION: 1. No acute intracranial process. 2. Moderate chronic microvascular ischemic changes. Repeat CT of head reported: IMPRESSION: 1. Generalized brain atrophy. 2. Small vessel ischemic/degenerative changes. 3. No acute intracranial hemorrhage, midline shift or mass effect. If symptoms persist, further evaluation with MRI is recommended. MRI of the brain revealed: IMPRESSION: 1. Small foci of acute ischemia in the right thalamus and left parietal cortex. No intracranial hemorrhage. 2. Extensive chronic microvascular ischemic changes, advanced for patient's age. Repeat MRI of brain reported: IMPRESSION: 1. Acute infarcts in the right prasad radiata , left parietal subcortical region, posteromedial left temporal lobe. Given the bilaterality, correlate for thromboembolic, vasospastic etiology 2. Moderate to advanced chronic microvascular ischemic changes. 3. Mild global cerebral volume loss. MRI/MRA of the brain reported: IMPRESSION: 1. High-grade stenosis in the left intracranial ICA. 2. Short-segment occlusion of distal M2 segment of the left MCA. 3. Short-segment moderate stenosis of the proximal A2 segment of the left GILMA. 4. Short-segment occlusion of A3 segment of the right GILMA. 5. Moderate stenosis of the proximal basilar artery. 6. Hypoplastic right vertebral artery short-segment foci of high-grade stenosis and occlusion of the V3 segment. Critical Result: Large vessel occlusion Chest xry reported: IMPRESSION: No evidence of acute disease in the chest. Renal ultrasound revealed: FINDINGS: The right kidney measures 10 cm in length, which is normal in size. There is normal echogenicity of the right kidney. No hydronephrosis. The left kidney measures 10 cm in length, which is normal in size. There is normal echogenicity of the left kidney. No hydronephrosis. Bladder mass measuring 7.3 cm. IMPRESSION: Possible hyperechoic bladder mass. Cystoscopy recommended Cystogram reported; IMPRESSION: A large bladder diverticulum is seen at the bladder dome with an additional smaller diverticulum seen just laterally. EKG reveals sinus rhythm with no specific ST-T changes. Tele reveals sinus rhythm Echocardiogram reported: Left ventricle: Concentric left ventricular hypertrophy was seen. LVEF was 60-65%. There was no gross wall motion abnormality. Right ventricle was normal sized with normal systolic function. Left atrium was dilated. Right atrium was normal sized. Aortic valve: Aortic valve was trileaflet. There was no aortic insufficiency/stenosis. There was trivial mitral regurgitation. There was no tricuspid regurgitation. There was no pulmonary valve insufficiency. There was no pericardial effusion. As there was no good tricuspid regurgitation jet, right ventricular systolic pressure could not be estimated. There was no echocardiographic evidence for pulmonary hypertension. IVC was normal sized with normal respiratory variation. CLAUDY did not reveal any Cardiac source for Emboli Patient is a 69-year-old gentleman who presented with lower extremity weakness. Imaging/CT/MRI has revealed CVA. Acute coronary syndrome is not considered at this point. Cardiac etiology for presentation is less likely. CVA, acute Morbid obesity Diabetes mellitus Hypertension Hiatal hernia GI bleeding, history of CKD Kidney mass s/p cystoscopy Bladder Diverticulum Cardiac suggestion for management: Manage on telemetry Follow-up electrolytes and kidney function tests and correct abnormalities Aspirin daily High potency statin Management / goal of blood pressure as per Neurology Status post CLAUDY revealing no cardiac source of emboli observed Neurology follow up Cardiac miranda, stable Further evaluation and management depends on the above and clinical course A total of 55 minutes was spent reviewing the patient record, examining the patient, making a diagnostic and therapeutic plan, discussing this plan with medical personnel, following up on diagnostic studies and following the patient for clinical stability excluding any and all procedures. At least 50% of this time was spent in direct, [id number] contact. Thank you for allowing me to participate in this patient's care. Further recommendations will depend on patient's clinical course. Please do not hesitate to contact me if you have any questions or concerns. This medical document was created using electronic medical record system with [employer] computerized dictation system. Although this document has been carefully reviewed, there may still be some phonetic and typographical errors. These areas are purely typographical due to the imperfection of the software programs, and do not reflect any compromise in the patient's medical care. Plan discussed with: Patient, Other (nurse) NEVAEH FALCON MD Dec 18, 2024 07:28
[2024-12-18] MEDS: MIDAZOLAM HCL 2MG/2ML 2ml VIAL (1mg/ml) IV ONE (12:04)
[2024-12-18] MEDS: fentaNYL CITRATE 100 MCG/2 ML VL IV ONE (12:04)
[2024-12-18] MEDS: IOTHALAMATE MEGLUMINE INJ 250ML BOT UR ONE (12:04)
[2024-12-18] MEDS: LIDOCAINE VISCOUS 2% 15ML UD PO ONE (12:04)
--- NOTE | 2024-12-18 15:08 | DVHPN2 ---
Progress Note Date Seen: Dec 18, 2024 Medical Necessity Reason Pt with a Central, PICC or Fol: Yes The following are medically ne: Link Catheter Objective vital signs Vital Sign Date Time Temp Pulse Resp B/P (MAP) Pulse Ox O2 Delivery O2 Flow Rate FiO2 12/18/24 12:49 97.8 18 98 158/85 (109) 98 97.8 12/18/24 08:00 Room Air* 0 21 Total Intake and Output 12/17/24 12/17/24 12/18/24 15:00 23:00 07:00 Intake Total 1175 ml 300 ml Output Total 255 ml 600 ml Balance 920 ml -300 ml medications Current Medications Medications Dose Ordered Sig/Abilio Route Start Time Stop Time Status Last Admin Dose Admin Ondansetron HCl 4 mg Q4HP PRN IV 12/09/24 11:00 12/10/24 16:44 4 MG Docusate Sodium 100 mg BIDPRN PRN PO 12/09/24 11:00 12/13/24 10:22 100 MG Enoxaparin Sodium 40 mg DAILY SC 12/10/24 10:00 12/18/24 08:52 40 MG Acetaminophen 650 mg Q6HP PRN PO 12/09/24 11:00 Nitroglycerin 0.4 mg Q5MINP PRN SL 12/09/24 11:00 Diagnostic Test (Pha) 1 strip ACHS 12/09/24 11:30 12/18/24 11:44 1 STRIP Insulin Human Regular ACHS SC 12/09/24 11:30 12/18/24 12:03 6 UNITS Dextrose 50 ml UD PRN IV 12/09/24 11:00 Atorvastatin Calcium 80 mg HS PO 12/09/24 22:00 12/17/24 21:05 80 MG Aspirin 81 mg DAILY PO 12/09/24 13:15 12/18/24 08:50 81 MG Pantoprazole Sodium 40 mg DAILY IV 12/11/24 10:00 12/18/24 08:50 40 MG Losartan Potassium 50 mg BID PO 12/10/24 22:00 12/18/24 08:51 50 MG Clonidine HCl 0.2 mg BID PO 12/11/24 16:45 12/18/24 08:51 0.2 MG Hydralazine HCl 10 mg Q6HP PRN IV 12/17/24 15:30 12/17/24 22:20 10 MG Examination: GENERAL:Abnormal, CVS:Abnormal, ABDOMEN:Abnormal, NEURO:Abnormal laboratory and microbiology Laboratory Tests 12/16/24 10:17 12/15/24 13:25 Test 12/16/24 10:17 Range/Units Serum Glucose 181 H 74-106 mg/dL Microbiology Date/Time Source Procedure Growth Status 12/12/24 15:15 Urine - Catheterized Urine Culture - Final Complete Problem List/Assessment/Plan Problem List/Assessment/Plan Acute kidney injury on Chronic kidney disease IIIb hemodynamic mediated in the setting of hypertensive urgency Hypertensive urgency secondary to noncompliance Acute CVA, left ICA stenosis Diabetes Obesity Proteinuria bladder mass-> bladder Diverticulum Increased urine output Kidney ultrasound--bladder mass-urology consulted Blood Pressure control ARB started continue to monitor link stable from renal standpoint Plan discussed with: Patient XIANG HENAO MD Dec 18, 2024 15:07
--- NOTE | 2024-12-18 20:29 | DVHPN2 ---
Progress Note - Dictate Date Seen: Dec 18, 2024 Medical Necessity Reason Pt with a Central, PICC or Fol: Yes The following are medically ne: Gonzalez Catheter vital signs Vital Sign Date Time Temp Pulse Resp B/P (MAP) Pulse Ox O2 Delivery O2 Flow Rate FiO2 12/18/24 16:44 174/93 (120) 12/18/24 16:22 98.0 74 16 97 98.0 12/18/24 08:00 Room Air* 0 21 Total Intake and Output 12/17/24 12/17/24 12/18/24 15:00 23:00 07:00 Intake Total 1175 ml 300 ml Output Total 255 ml 600 ml Balance 920 ml -300 ml medications Current Medications Medications Dose Ordered Sig/Abilio Route Start Time Stop Time Status Last Admin Dose Admin Ondansetron HCl 4 mg Q4HP PRN IV 12/09/24 11:00 12/10/24 16:44 4 MG Docusate Sodium 100 mg BIDPRN PRN PO 12/09/24 11:00 12/13/24 10:22 100 MG Enoxaparin Sodium 40 mg DAILY SC 12/10/24 10:00 12/18/24 08:52 40 MG Acetaminophen 650 mg Q6HP PRN PO 12/09/24 11:00 Nitroglycerin 0.4 mg Q5MINP PRN SL 12/09/24 11:00 Diagnostic Test (Pha) 1 strip ACHS 12/09/24 11:30 12/18/24 17:00 1 STRIP Insulin Human Regular ACHS SC 12/09/24 11:30 12/18/24 17:00 3 UNITS Dextrose 50 ml UD PRN IV 12/09/24 11:00 Atorvastatin Calcium 80 mg HS PO 12/09/24 22:00 12/17/24 21:05 80 MG Aspirin 81 mg DAILY PO 12/09/24 13:15 12/18/24 08:50 81 MG Pantoprazole Sodium 40 mg DAILY IV 12/11/24 10:00 12/18/24 08:50 40 MG Losartan Potassium 50 mg BID PO 12/10/24 22:00 12/18/24 08:51 50 MG Clonidine HCl 0.2 mg BID PO 12/11/24 16:45 12/18/24 08:51 0.2 MG Hydralazine HCl 10 mg Q6HP PRN IV 12/17/24 15:30 12/18/24 16:08 10 MG objective General Appearance: alert, no distress HEENT: EOMI, PERRLA, normal external inspect of ears, no icterus, no nasal drainage Neck: no carotid bruit, no jugular venous distention (JVD), no lymphadenopathy Chest: normal thorax Respiratory: clear to auscultation, normal air movement Cardiovascular: regular rate and rhythm, no diastolic murmur, no jugular venous distention (JVD), no rub, no systolic murmur Abdominal: soft, no hepatomegaly, no mass, no splenomegaly, no tenderness Musculoskeletal: no joint tenderness, no swelling Extremities: normal pulses, no calf tenderness, no clubbing, no cyanosis, no edema Skin: no bruising, no jaundice, no rash Neurological: alert, No focal deficit laboratory and microbiology Laboratory Tests 12/16/24 10:17 12/15/24 13:25 Test 12/16/24 10:17 Range/Units Serum Glucose 181 H 74-106 mg/dL Problem List 1. Hypertensive urgency Cardiology conult 2. Bilateral lower extremity weakness Medication, monitoring 3. Obesity Diet education, monitor 4. DM II w/ hyperglycemia Insulin Sliding Scale 5. HLD Medication, monitoring 6. GERD Medication, monitoring 7. CVA with residual defects Neurology consult 8. CKD 3B Medication, monitoring 9. Acute CVA MRI of Brain Assessment/Plan Subjective Patient appears to be alert and oriented. Objective Patient has had 2 CVAs while hospitalized. Patient has a left ICA stenosis. I did discuss plan of care with patient and patient's Melida extensively as well as renal social worker. I also spoke with neurology. Patient has a left ICA stenosis most likely attributing to recurrent CVA. Patient has a stable CKD stage IIIb. Patient has diabetes type 2 with hyperglycemia currently controlled with insulin sliding scale. Melida is concerned that patient may not be a candidate for any type of vascular surgery. Patient originally declined higher level of care but now he is requesting transfer. Per renal social worker several major hospitals has declined at this time. Patient also was seen for by urology for bladder mass. Patient is status post cystoscopy. Urethral stricture was noted. Gonzalez catheter was placed. Patient will need additional cystoscopy outpatient. Gonzalez catheter to remain in place. Per Melida they are now unsure if whether or not patient should be transferred to higher level of care. She will discuss with her family and patient. Patient appears to be alert and oriented and can currently make his decisions at this time. I also again discussed plan of care with my attending physician Dr. Phillips. Plan Continue current medications as recommended by neurology. Vascular surgery consult for left ICA stenosis. retail services professional consult to transfer for higher level of care for left ICA stenosis large vessel occlusion. Plan discussed with: Patient, Other VITOR SCHULTZ NP Dec 18, 2024 20:29
--- NOTE | 2024-12-18 22:51 | DVHPN2 ---
Progress Note - Dictate Date Seen: Dec 18, 2024 Medical Necessity Reason Pt with a Central, PICC or Fol: Yes The following are medically ne: Gonzalez Catheter Subjective Mr. Goldsmith is a 69 years old right-handed gentleman with a history of hypertension, diabetes, dyslipidemia, he came to the [facility] on 12/09/2024 with a chief complaint of bilateral leg weakness. At that time, he is alert, fully oriented, he provided the following history I saw him on 08/20/23 for syncope, 09/03/24 for metabolic encephalopathy (MRI: acute strokes) I have seen and examined the patient, I have discussed with his daytime and evening nurses, the case was discussed with the Chantel, and I have discussed with our social service. Because he did not agree with transferring, he lost his obtain disease to be transferred to [place] I have spent time discussing with him again, and he agreed to transferred to higher level care Urinalysis, 12/09/2024: WBC: 314, urine leukocyte esterase: 3+ WBC/HB/PLT/MCV, 12/09/2024: 4/12.8/207/85.3 HGB A1c, 07/2023: 6.1, 12/09/2024: 7.6 BUN/CR, 09/03/2024: 22/1.81, 12/09/2024: 12/1.62 TG/HDL/LDL/HDL, 12/09/2024: 172/277/203/46 Vitamin B12, 04/2024: 622 TSH, 04/2020 4:2.29 CLAUDY, 12/12/2024: 1. Left ventricle: Mild concentrated Left ventricular hypertrophy was seen. LVEF was 65%. There was no gross wall motion abnormality seen. 2. Right ventricle: Normal RV size with normal systolic function. 3. Left atrium: LA mildly enlarged 4. Right atrium: RA was normal 5. Mitral valve: Trace Mitral regurgitation, no significant stenosis, normal functioning valve 6. Left atrial appendage: No evidence of thrombus. 7. Aortic valve: Aortic valve was trileaflet. There was no Aortic stenosis/Insufficiency 8. Pulmonic valve: Trivial pulmonic insufficiency. No significant stenosis. 9. Tricuspid valve: Trace tricuspid regurgitation. 10. Interatrial septum: Negative color flow for shunt was observed. Bubble study was negative (normal) 11. Pericardium: No significant effusion. 12. Thoracic aorta: No significant plaquing. 13 No vegetation was seen. Echocardiogram, 12/10/2024: Left ventricle: Concentric left ventricular hypertrophy was seen. LVEF was 60-65%. There was no gross wall motion abnormality. Right ventricle was normal sized with normal systolic function. Left atrium was dilated. Right atrium was normal sized. Aortic valve: Aortic valve was trileaflet. There was no aortic insufficiency/stenosis. There was trivial mitral regurgitation. There was no tricuspid regurgitation. There was no pulmonary valve insufficiency. There was no pericardial effusion. As there was no good tricuspid regurgitation jet, right ventricular systolic pressure could not be estimated. There was no echocardiographic evidence for pulmonary hypertension. IVC was normal sized with normal respiratory variation MRI head, 08/03/2023: No acute findings. Small vessel chronic ischemic changes MRI head, 09/04/2024: Few small foci of acute ischemia, suspect embolic infarcts. Clinical correlation and continued follow-up is recommended. Consider further evaluation with CTA or MRA of the head and neck MRI head, 12/09/2024: 1. Small foci of acute ischemia in the right thalamus and left parietal cortex. No intracranial hemorrhage. 2. Extensive chronic microvascular ischemic changes, advanced for patient's age. MRI head, 12/13/2024: 1. Acute infarcts in the right prasad radiata , left parietal subcortical region, posteromedial left temporal lobe. Given the bilaterality, correlate for thromboembolic, vasospastic etiology 2. Moderate to advanced chronic microvascular ischemic changes. 3. Mild global cerebral volume loss (the right basal ganglia acute stroke is enlarged, new strokes in the left parietal lobe) MRA brain, neck, 12/09/2024: 1. High-grade stenosis in the left intracranial ICA. 2. Short-segment occlusion of distal M2 segment of the left MCA. 3. Short- segment moderate stenosis of the proximal A2 segment of the left GILMA. 4. Short- segment occlusion of A3 segment of the right GILMA. 5. Moderate stenosis of the proximal basilar artery. 6. Hypoplastic right vertebral artery short-segment foci of high-grade stenosis and occlusion of the V3 segment vital signs Vital Sign Date Time Temp Pulse Resp B/P (MAP) Pulse Ox O2 Delivery O2 Flow Rate FiO2 12/18/24 21:33 180/95 12/18/24 21:00 98.5 89 18 98 98.5 12/18/24 20:00 Room Air* 0 21 Total Intake and Output 12/17/24 12/17/24 12/18/24 15:00 23:00 07:00 Intake Total 1175 ml 300 ml Output Total 255 ml 600 ml Balance 920 ml -300 ml medications Current Medications Medications Dose Ordered Sig/Abilio Route Start Time Stop Time Status Last Admin Dose Admin Ondansetron HCl 4 mg Q4HP PRN IV 12/09/24 11:00 12/10/24 16:44 4 MG Docusate Sodium 100 mg BIDPRN PRN PO 12/09/24 11:00 12/13/24 10:22 100 MG Enoxaparin Sodium 40 mg DAILY SC 12/10/24 10:00 12/18/24 08:52 40 MG Acetaminophen 650 mg Q6HP PRN PO 12/09/24 11:00 Nitroglycerin 0.4 mg Q5MINP PRN SL 12/09/24 11:00 Diagnostic Test (Pha) 1 strip ACHS 12/09/24 11:30 12/18/24 21:34 1 STRIP Insulin Human Regular ACHS SC 12/09/24 11:30 12/18/24 21:40 8 UNITS Dextrose 50 ml UD PRN IV 12/09/24 11:00 Atorvastatin Calcium 80 mg HS PO 12/09/24 22:00 12/18/24 21:33 80 MG Aspirin 81 mg DAILY PO 12/09/24 13:15 12/18/24 08:50 81 MG Pantoprazole Sodium 40 mg DAILY IV 12/11/24 10:00 12/18/24 08:50 40 MG Losartan Potassium 50 mg BID PO 12/10/24 22:00 12/18/24 21:32 50 MG Clonidine HCl 0.2 mg BID PO 12/11/24 16:45 12/18/24 21:33 0.2 MG Hydralazine HCl 10 mg Q6HP PRN IV 12/17/24 15:30 12/18/24 16:08 10 MG objective General: the patient is well developed and nourished. No acute distress. MENTAL STATUS: Subjective SPEECH, LANGUAGE, HIGHER CORTICAL FUNCTION: no aphasia or dysathria. CRANIAL NERVES: Intact visual godfrey to confrontation. Pupils are equal, round and reactive. EOMs full and conjugate. No nystagmus. Facial sensation intact in all three divisions bilaterally. Mandibular strength intact. Facial muscles symmetrical and strength intact. SENSATION: Sensation to touch and pinprick is normal. MOTOR: Normal tone in the upper and lower extremity. Normal muscle bulk. No fasciculations. No abnormal movements or posturing. Muscle strength of the major groups in the upper extremities is 5/5. Muscle strength of the major groups in the lower extremities is right: 4-5/5. REFLEXES: Deep tendon reflexes are symmetrical. No pathological reflexes. CEREBELLAR/COORDINATION: Finger to nose is normal bilaterally. GAIT/STATION: deferred laboratory and microbiology Laboratory Tests 12/16/24 10:17 12/15/24 13:25 Test 12/16/24 10:17 Range/Units Serum Glucose 181 H 74-106 mg/dL Problem List Acute multiple strokes on admission, and he was more acute strokes in the MRI on 12/13/2024, ? Secondary to left ICA stenosis ? Cardiac or aorta emboli source Chronic stroke Left ICA high-grade stenosis History of GI bleeding with syncope, GI has cleared him to have antiplatelet treatment Assessment/Plan Monitoring Supportive treatment Telemetry Aspirin 81 mg daily Lipitor 80 mg daily Protonix, 40 mg daily Carafate 1 g b.i.d. DVT prophylaxis/Lovenox Syncope precautions discussed GI on case Trying to higher level of care Re: 1, Recurrent acute multiple strokes with unremarkable CLAUDY, telemetry record, 2 high-grade left IC stenosis Further address left high-grade ICA stenosis as outpatient This medical document was created using an electronic medical record system with [employer] dictation system. Although this document has been carefully reviewed, there may still be some phonetic and typographical errors. These areas are purely typographical due to imperfections of the software programs, and do not reflect any compromise in the patient's medical care. Prognosis poor Plan discussed with: Patient, Other Total Time (mins): 45 GRACIE UMAÑA MD Dec 18, 2024 22:51
[2024-12-19] VITALS (10 sets, daily range): BP systolic 135–175; BP diastolic 93–101; PULSE 70–90; RESP 17–18; TEMP 97.9–98.4; O2SAT 96–98
[2024-12-19 06:13] LABS: Potassium 4.7 mmol/L (3.5-5.1)
[2024-12-19 06:14] LABS: Anion Gap 9 (5-15); Calcium 9.2 mg/dL (8.7-10.4)
[2024-12-19 06:19] LABS: BUN/Creatinine Ratio 8.2 (10.0-20.0); Blood Urea Nitrogen 12 mg/dL (9-23)
[2024-12-19 06:41] LABS: Carbon Dioxide 16 mmol/L (20-31); Chloride 108 mmol/L (98-107); Glucose 242 mg/dL (74-106); Sodium 133 mmol/L (136-145)
--- NOTE | 2024-12-19 07:24 | DVHPN2 ---
Progress Note - Dictate Date Seen: Dec 19, 2024 Medical Necessity Reason Pt with a Central, PICC or Fol: Yes The following are medically ne: Gonzalez Catheter vital signs Vital Sign Date Time Temp Pulse Resp B/P (MAP) Pulse Ox O2 Delivery O2 Flow Rate FiO2 12/19/24 06:35 159/100 (119) 12/19/24 05:00 98.1 81 18 96 98.1 12/18/24 20:00 Room Air* 0 21 Total Intake and Output 12/18/24 12/18/24 12/19/24 15:00 23:00 07:00 Intake Total 300 ml 480 ml Output Total 200 ml Balance 100 ml 480 ml medications Current Medications Medications Dose Ordered Sig/Abilio Route Start Time Stop Time Status Last Admin Dose Admin Ondansetron HCl 4 mg Q4HP PRN IV 12/09/24 11:00 12/10/24 16:44 4 MG Docusate Sodium 100 mg BIDPRN PRN PO 12/09/24 11:00 12/13/24 10:22 100 MG Enoxaparin Sodium 40 mg DAILY SC 12/10/24 10:00 12/18/24 08:52 40 MG Acetaminophen 650 mg Q6HP PRN PO 12/09/24 11:00 Nitroglycerin 0.4 mg Q5MINP PRN SL 12/09/24 11:00 Diagnostic Test (Pha) 1 strip ACHS 12/09/24 11:30 12/19/24 06:26 1 STRIP Insulin Human Regular ACHS SC 12/09/24 11:30 12/19/24 06:29 4 UNITS Dextrose 50 ml UD PRN IV 12/09/24 11:00 Atorvastatin Calcium 80 mg HS PO 12/09/24 22:00 12/18/24 21:33 80 MG Aspirin 81 mg DAILY PO 12/09/24 13:15 12/18/24 08:50 81 MG Pantoprazole Sodium 40 mg DAILY IV 12/11/24 10:00 12/18/24 08:50 40 MG Losartan Potassium 50 mg BID PO 12/10/24 22:00 12/18/24 21:32 50 MG Clonidine HCl 0.2 mg BID PO 12/11/24 16:45 12/18/24 21:33 0.2 MG Hydralazine HCl 10 mg Q6HP PRN IV 12/17/24 15:30 12/19/24 00:12 10 MG laboratory and microbiology Laboratory Tests 12/19/24 05:01 12/15/24 13:25 Test 12/19/24 05:01 Range/Units Serum Glucose 242 H 74-106 mg/dL Assessment/Plan Patient is a 69-year-old gentleman who presented to the hospital for worsening bilateral lower extremity weakness and swelling. He did have some headaches. He mentions that he has not been able to walk for the past 2 days. It is of note that the patient did have a CVA back in August 2024. Since that time he was able to walk with cane but for the past 2 days he is unable to. Cardiology was involved for cardiac aspects of care. He denies chest pains. He denies shortness of breath. He denies loss of consciousness. He denies dizziness. Morbidly obese. Not in acute distress. Not using accessory muscles of breathing. No JVD. Speaks slowly. Mucosa is pink and wet. No goiter. No carotid bruit. Lungs are clear to auscultation. Cardiac: Regular, no thrill/gallop. Abdomen is soft. There is no gross mass. Bowel sound is positive. Dorsalis pedis is 2+ bilateral Past medical history includes hypertension, diabetes mellitus, morbid obesity, history of CVA, CKD, old history of GI bleeding anemia, GERD, hyperlipidemia, hiatal hernia and old history of hepatitis-C. Does have history of smoking. Denies alcohol and drug abuse. Family history is positive for hypertension/CVA and heart murmur Echocardiogram of August 03, 2023 had reported mild concentric left ventricular hypertrophy, aortic sclerosis, ejection fraction of 65-70% and no vegetation Echocardiogram of August 2024 revealed ejection fraction of 60-65% Creatinine: 1.61 - 1.75 - 1.63 - 1.89 - 1.50 - 1.54 - 1.66 - 1.55 - 1.47 Potassium: 5.0 - 4.2 - 4.7 - 4.5 - 4.8 - 4.9 - 4.9 - 4.6 - 4.7 Troponin (high sensitive): 3 LDL: 203 CT of the head reported: IMPRESSION: 1. No acute intracranial process. 2. Moderate chronic microvascular ischemic changes. Repeat CT of head reported: IMPRESSION: 1. Generalized brain atrophy. 2. Small vessel ischemic/degenerative changes. 3. No acute intracranial hemorrhage, midline shift or mass effect. If symptoms persist, further evaluation with MRI is recommended. MRI of the brain revealed: IMPRESSION: 1. Small foci of acute ischemia in the right thalamus and left parietal cortex. No intracranial hemorrhage. 2. Extensive chronic microvascular ischemic changes, advanced for patient's age. Repeat MRI of brain reported: IMPRESSION: 1. Acute infarcts in the right prasad radiata , left parietal subcortical region, posteromedial left temporal lobe. Given the bilaterality, correlate for thromboembolic, vasospastic etiology 2. Moderate to advanced chronic microvascular ischemic changes. 3. Mild global cerebral volume loss. MRI/MRA of the brain reported: IMPRESSION: 1. High-grade stenosis in the left intracranial ICA. 2. Short-segment occlusion of distal M2 segment of the left MCA. 3. Short-segment moderate stenosis of the proximal A2 segment of the left GILMA. 4. Short-segment occlusion of A3 segment of the right GILMA. 5. Moderate stenosis of the proximal basilar artery. 6. Hypoplastic right vertebral artery short-segment foci of high-grade stenosis and occlusion of the V3 segment. Critical Result: Large vessel occlusion Chest xry reported: IMPRESSION: No evidence of acute disease in the chest. Renal ultrasound revealed: FINDINGS: The right kidney measures 10 cm in length, which is normal in size. There is normal echogenicity of the right kidney. No hydronephrosis. The left kidney measures 10 cm in length, which is normal in size. There is normal echogenicity of the left kidney. No hydronephrosis. Bladder mass measuring 7.3 cm. IMPRESSION: Possible hyperechoic bladder mass. Cystoscopy recommended Cystogram reported; IMPRESSION: A large bladder diverticulum is seen at the bladder dome with an additional smaller diverticulum seen just laterally. EKG reveals sinus rhythm with no specific ST-T changes. Tele reveals sinus rhythm Echocardiogram reported: Left ventricle: Concentric left ventricular hypertrophy was seen. LVEF was 60-65%. There was no gross wall motion abnormality. Right ventricle was normal sized with normal systolic function. Left atrium was dilated. Right atrium was normal sized. Aortic valve: Aortic valve was trileaflet. There was no aortic insufficiency/stenosis. There was trivial mitral regurgitation. There was no tricuspid regurgitation. There was no pulmonary valve insufficiency. There was no pericardial effusion. As there was no good tricuspid regurgitation jet, right ventricular systolic pressure could not be estimated. There was no echocardiographic evidence for pulmonary hypertension. IVC was normal sized with normal respiratory variation. CLAUDY did not reveal any Cardiac source for Emboli Patient is a 69-year-old gentleman who presented with lower extremity weakness. Imaging/CT/MRI has revealed CVA. Acute coronary syndrome is not considered at this point. Cardiac etiology for presentation is less likely. CVA, acute Morbid obesity Diabetes mellitus Hypertension Hiatal hernia GI bleeding, history of CKD Kidney mass s/p cystoscopy Bladder Diverticulum Cardiac suggestion for management: Manage on telemetry Follow-up electrolytes and kidney function tests and correct abnormalities Aspirin daily High potency statin Management / goal of blood pressure as per Neurology Status post CLAUDY revealing no cardiac source of emboli observed Neurology follow up (suggested for transferring to higher level of care) Cardiac miranda, stable Further evaluation and management depends on the above and clinical course A total of 55 minutes was spent reviewing the patient record, examining the patient, making a diagnostic and therapeutic plan, discussing this plan with medical personnel, following up on diagnostic studies and following the patient for clinical stability excluding any and all procedures. At least 50% of this time was spent in direct, [id number] contact. Thank you for allowing me to participate in this patient's care. Further recommendations will depend on patient's clinical course. Please do not hesitate to contact me if you have any questions or concerns. This medical document was created using electronic medical record system with [email or web address] computerized dictation system. Although this document has been carefully reviewed, there may still be some phonetic and typographical errors. These areas are purely typographical due to the imperfection of the software programs, and do not reflect any compromise in the patient's medical care. Plan discussed with: Other (nurse) NEVAEH FALCON MD Dec 19, 2024 07:24
--- NOTE | 2024-12-19 15:45 | DVHPN2 ---
Progress Note - Dictate Date Seen: Dec 19, 2024 Medical Necessity Reason Pt with a Central, PICC or Fol: Yes The following are medically ne: Gonzalez Catheter Subjective Mr. Goldsmith is a 69 years old right-handed gentleman with a history of hypertension, diabetes, dyslipidemia, he came to the [facility] on 12/09/2024 with a chief complaint of bilateral leg weakness. At that time, he is alert, fully oriented, he provided the following history I saw him on 08/20/23 for syncope, 09/03/24 for metabolic encephalopathy (MRI: acute strokes) I have seen and examined the patient, I have discussed with his nurses, he was awake, oriented x3 I have discussed with Dr. Taylor, a vascular surgeon @ [facility]. Dr. Taylor recommended follow up with him or [facility] vascular team as an outpatient and he also recommended more cardiac evaluation, including cardiac monitoring as outpatient Urinalysis, 12/09/2024: WBC: 314, urine leukocyte esterase: 3+ WBC/HB/PLT/MCV, 12/09/2024: 4/12.8/207/85.3 HGB A1c, 07/2023: 6.1, 12/09/2024: 7.6 BUN/CR, 09/03/2024: 22/1.81, 12/09/2024: 12/1.62 TG/HDL/LDL/HDL, 12/09/2024: 172/277/203/46 Vitamin B12, 04/2024: 622 TSH, 04/2020 4:2.29 CLAUDY, 12/12/2024: 1. Left ventricle: Mild concentrated Left ventricular hypertrophy was seen. LVEF was 65%. There was no gross wall motion abnormality seen. 2. Right ventricle: Normal RV size with normal systolic function. 3. Left atrium: LA mildly enlarged 4. Right atrium: RA was normal 5. Mitral valve: Trace Mitral regurgitation, no significant stenosis, normal functioning valve 6. Left atrial appendage: No evidence of thrombus. 7. Aortic valve: Aortic valve was trileaflet. There was no Aortic stenosis/Insufficiency 8. Pulmonic valve: Trivial pulmonic insufficiency. No significant stenosis. 9. Tricuspid valve: Trace tricuspid regurgitation. 10. Interatrial septum: Negative color flow for shunt was observed. Bubble study was negative (normal) 11. Pericardium: No significant effusion. 12. Thoracic aorta: No significant plaquing. 13 No vegetation was seen. Echocardiogram, 12/10/2024: Left ventricle: Concentric left ventricular hypertrophy was seen. LVEF was 60-65%. There was no gross wall motion abnormality. Right ventricle was normal sized with normal systolic function. Left atrium was dilated. Right atrium was normal sized. Aortic valve: Aortic valve was trileaflet. There was no aortic insufficiency/stenosis. There was trivial mitral regurgitation. There was no tricuspid regurgitation. There was no pulmonary valve insufficiency. There was no pericardial effusion. As there was no good tricuspid regurgitation jet, right ventricular systolic pressure could not be estimated. There was no echocardiographic evidence for pulmonary hypertension. IVC was normal sized with normal respiratory variation MRI head, 08/03/2023: No acute findings. Small vessel chronic ischemic changes MRI head, 09/04/2024: Few small foci of acute ischemia, suspect embolic infarcts. Clinical correlation and continued follow-up is recommended. Consider further evaluation with CTA or MRA of the head and neck MRI head, 12/09/2024: 1. Small foci of acute ischemia in the right thalamus and left parietal cortex. No intracranial hemorrhage. 2. Extensive chronic microvascular ischemic changes, advanced for patient's age. MRI head, 12/13/2024: 1. Acute infarcts in the right prasad radiata , left parietal subcortical region, posteromedial left temporal lobe. Given the bilaterality, correlate for thromboembolic, vasospastic etiology 2. Moderate to advanced chronic microvascular ischemic changes. 3. Mild global cerebral volume loss (the right basal ganglia acute stroke is enlarged, new strokes in the left parietal lobe) MRA brain, neck, 12/09/2024: 1. High-grade stenosis in the left intracranial ICA. 2. Short-segment occlusion of distal M2 segment of the left MCA. 3. Short- segment moderate stenosis of the proximal A2 segment of the left GILMA. 4. Short- segment occlusion of A3 segment of the right GILMA. 5. Moderate stenosis of the proximal basilar artery. 6. Hypoplastic right vertebral artery short-segment foci of high-grade stenosis and occlusion of the V3 segment vital signs Vital Sign Date Time Temp Pulse Resp B/P (MAP) Pulse Ox O2 Delivery O2 Flow Rate FiO2 12/19/24 13:17 97.9 77 18 169/93 (118) 98 97.9 12/18/24 20:00 Room Air* 0 21 Total Intake and Output 12/18/24 12/18/24 12/19/24 15:00 23:00 07:00 Intake Total 300 ml 480 ml Output Total 200 ml Balance 100 ml 480 ml medications Current Medications Medications Dose Ordered Sig/Abilio Route Start Time Stop Time Status Last Admin Dose Admin Ondansetron HCl 4 mg Q4HP PRN IV 12/09/24 11:00 12/10/24 16:44 4 MG Docusate Sodium 100 mg BIDPRN PRN PO 12/09/24 11:00 12/13/24 10:22 100 MG Enoxaparin Sodium 40 mg DAILY SC 12/10/24 10:00 12/19/24 10:28 40 MG Acetaminophen 650 mg Q6HP PRN PO 12/09/24 11:00 Nitroglycerin 0.4 mg Q5MINP PRN SL 12/09/24 11:00 Diagnostic Test (Pha) 1 strip ACHS 12/09/24 11:30 12/19/24 11:30 1 STRIP Insulin Human Regular ACHS SC 12/09/24 11:30 12/19/24 12:29 6 UNITS Dextrose 50 ml UD PRN IV 12/09/24 11:00 Atorvastatin Calcium 80 mg HS PO 12/09/24 22:00 12/18/24 21:33 80 MG Aspirin 81 mg DAILY PO 12/09/24 13:15 12/19/24 10:27 81 MG Pantoprazole Sodium 40 mg DAILY IV 12/11/24 10:00 12/19/24 10:28 40 MG Losartan Potassium 50 mg BID PO 12/10/24 22:00 12/19/24 10:27 50 MG Clonidine HCl 0.2 mg BID PO 12/11/24 16:45 12/19/24 10:27 0.2 MG Hydralazine HCl 10 mg Q6HP PRN IV 12/17/24 15:30 12/19/24 00:12 10 MG objective General: the patient is well developed and nourished. No acute distress. MENTAL STATUS: Subjective SPEECH, LANGUAGE, HIGHER CORTICAL FUNCTION: no aphasia or dysathria. CRANIAL NERVES: Intact visual godfrey to confrontation. Pupils are equal, round and reactive. EOMs full and conjugate. No nystagmus. Facial sensation intact in all three divisions bilaterally. Mandibular strength intact. Facial muscles symmetrical and strength intact. SENSATION: Sensation to touch and pinprick is normal. MOTOR: Normal tone in the upper and lower extremity. Normal muscle bulk. No fasciculations. No abnormal movements or posturing. Muscle strength of the major groups in the upper extremities is 5/5. Muscle strength of the major groups in the lower extremities is right: 4-5/5. REFLEXES: Deep tendon reflexes are symmetrical. No pathological reflexes. CEREBELLAR/COORDINATION: Finger to nose is normal bilaterally. GAIT/STATION: deferred laboratory and microbiology Laboratory Tests 12/19/24 05:01 12/15/24 13:25 Test 12/19/24 05:01 Range/Units Serum Glucose 242 H 74-106 mg/dL Problem List Acute multiple strokes on admission, and he was more acute strokes in the MRI on 12/13/2024, ? Secondary to left ICA stenosis ? Cardiac or aorta emboli source Chronic stroke Left ICA high-grade stenosis History of GI bleeding with syncope, GI has cleared him to have antiplatelet treatment Assessment/Plan Monitoring Supportive treatment Telemetry Aspirin 81 mg daily Lipitor 80 mg daily Protonix, 40 mg daily Carafate 1 g b.i.d. DVT prophylaxis/Lovenox Syncope precautions discussed GI on case Trying to higher level of care Re: 1, Recurrent acute multiple strokes with unremarkable CLAUDY, telemetry record, 2 high-grade left IC stenosis Further address left high-grade ICA stenosis as outpatient This medical document was created using an electronic medical record system with [employer] dictation system. Although this document has been carefully reviewed, there may still be some phonetic and typographical errors. These areas are purely typographical due to imperfections of the software programs, and do not reflect any compromise in the patient's medical care. Prognosis poor Dietary Evaluation Review Comments: 1. Recommend adding CHO restriction 75 gm/meal to assist w/ glycemic control and still meet pt's caloric needs 2. Continue ss insulin as needed, consider addition of long-acting insulin 3. Continue frequent BG checks; goal >70, <180 mg/dl while inpatient 4. Given variable intakes, recommend Glucerna oral supplement 1x/day to enhance nutritional status (provides 220 kcal, 10 gm pro, 26 gm CHO) Expected Outcomes/Goals: Improved glycemic control, adequate nutrition, weight maintenance Plan discussed with: Patient, Other GRACIE UMAÑA MD Dec 19, 2024 15:45
--- NOTE | 2024-12-19 16:41 | DVHPN2 ---
Progress Note Date Seen: Dec 19, 2024 Medical Necessity Reason Pt with a Central, PICC or Fol: Yes The following are medically ne: Link Catheter Objective vital signs Vital Sign Date Time Temp Pulse Resp B/P (MAP) Pulse Ox O2 Delivery O2 Flow Rate FiO2 12/19/24 13:17 97.9 77 18 169/93 (118) 98 97.9 12/19/24 08:00 Room Air* 0 21 Total Intake and Output 12/18/24 12/18/24 12/19/24 15:00 23:00 07:00 Intake Total 300 ml 480 ml Output Total 200 ml Balance 100 ml 480 ml medications Current Medications Medications Dose Ordered Sig/Abilio Route Start Time Stop Time Status Last Admin Dose Admin Ondansetron HCl 4 mg Q4HP PRN IV 12/09/24 11:00 12/10/24 16:44 4 MG Docusate Sodium 100 mg BIDPRN PRN PO 12/09/24 11:00 12/13/24 10:22 100 MG Enoxaparin Sodium 40 mg DAILY SC 12/10/24 10:00 12/19/24 10:28 40 MG Acetaminophen 650 mg Q6HP PRN PO 12/09/24 11:00 Nitroglycerin 0.4 mg Q5MINP PRN SL 12/09/24 11:00 Diagnostic Test (Pha) 1 strip ACHS 12/09/24 11:30 12/19/24 11:30 1 STRIP Insulin Human Regular ACHS SC 12/09/24 11:30 12/19/24 12:29 6 UNITS Dextrose 50 ml UD PRN IV 12/09/24 11:00 Atorvastatin Calcium 80 mg HS PO 12/09/24 22:00 12/18/24 21:33 80 MG Aspirin 81 mg DAILY PO 12/09/24 13:15 12/19/24 10:27 81 MG Pantoprazole Sodium 40 mg DAILY IV 12/11/24 10:00 12/19/24 10:28 40 MG Losartan Potassium 50 mg BID PO 12/10/24 22:00 12/19/24 10:27 50 MG Clonidine HCl 0.2 mg BID PO 12/11/24 16:45 12/19/24 10:27 0.2 MG Hydralazine HCl 10 mg Q6HP PRN IV 12/17/24 15:30 12/19/24 00:12 10 MG Examination: GENERAL:Abnormal, LUNGS:Normal, CVS:Abnormal laboratory and microbiology Laboratory Tests 12/19/24 05:01 12/15/24 13:25 Test 12/19/24 05:01 Range/Units Serum Glucose 242 H 74-106 mg/dL Microbiology Date/Time Source Procedure Growth Status 12/12/24 15:15 Urine - Catheterized Urine Culture - Final Complete Problem List/Assessment/Plan Problem List/Assessment/Plan Acute kidney injury on Chronic kidney disease IIIb hemodynamic mediated in the setting of hypertensive urgency Hypertensive urgency secondary to noncompliance Acute CVA, left ICA stenosis Diabetes Obesity Proteinuria bladder mass-> bladder Diverticulum Increased urine output Kidney ultrasound--bladder mass-urology consulted Blood Pressure control ARB link stable from renal standpoint Plan discussed with: Patient Dietary Evaluation Review Comments: 1. Recommend adding CHO restriction 75 gm/meal to assist w/ glycemic control and still meet pt's caloric needs 2. Continue ss insulin as needed, consider addition of long-acting insulin 3. Continue frequent BG checks; goal >70, <180 mg/dl while inpatient 4. Given variable intakes, recommend Glucerna oral supplement 1x/day to enhance nutritional status (provides 220 kcal, 10 gm pro, 26 gm CHO) Expected Outcomes/Goals: Improved glycemic control, adequate nutrition, weight maintenance XIANG HENAO MD Dec 19, 2024 16:41
--- NOTE | 2024-12-19 20:49 | DVHPN2 ---
Progress Note Date Seen: Dec 19, 2024 Medical Necessity Reason Pt with a Central, PICC or Fol: Yes The following are medically ne: Gonzalez Catheter Subjective Patient reports: No new complaints Review of Systems: CVS:Normal, RESPIRATORY:Normal, GI:Normal, :Normal, NEURO:Normal Objective vital signs Vital Sign Date Time Temp Pulse Resp B/P (MAP) Pulse Ox O2 Delivery O2 Flow Rate FiO2 12/19/24 17:00 98.0 70 18 135/96 (109) 97 98.0 12/19/24 08:00 Room Air* 0 21 Total Intake and Output 12/18/24 12/18/24 12/19/24 15:00 23:00 07:00 Intake Total 300 ml 480 ml Output Total 200 ml Balance 100 ml 480 ml medications Current Medications Medications Dose Ordered Sig/Abilio Route Start Time Stop Time Status Last Admin Dose Admin Ondansetron HCl 4 mg Q4HP PRN IV 12/09/24 11:00 12/10/24 16:44 4 MG Docusate Sodium 100 mg BIDPRN PRN PO 12/09/24 11:00 12/13/24 10:22 100 MG Enoxaparin Sodium 40 mg DAILY SC 12/10/24 10:00 12/19/24 10:28 40 MG Acetaminophen 650 mg Q6HP PRN PO 12/09/24 11:00 Nitroglycerin 0.4 mg Q5MINP PRN SL 12/09/24 11:00 Diagnostic Test (Pha) 1 strip ACHS 12/09/24 11:30 12/19/24 17:00 1 STRIP Insulin Human Regular ACHS SC 12/09/24 11:30 12/19/24 17:52 6 UNITS Dextrose 50 ml UD PRN IV 12/09/24 11:00 Atorvastatin Calcium 80 mg HS PO 12/09/24 22:00 12/18/24 21:33 80 MG Aspirin 81 mg DAILY PO 12/09/24 13:15 12/19/24 10:27 81 MG Pantoprazole Sodium 40 mg DAILY IV 12/11/24 10:00 12/19/24 10:28 40 MG Losartan Potassium 50 mg BID PO 12/10/24 22:00 12/19/24 10:27 50 MG Clonidine HCl 0.2 mg BID PO 12/11/24 16:45 12/19/24 10:27 0.2 MG Hydralazine HCl 10 mg Q6HP PRN IV 12/17/24 15:30 12/19/24 00:12 10 MG Examination: GENERAL:Normal, LUNGS:Normal, CVS:Normal, ABDOMEN:Normal, SKIN:Normal laboratory and microbiology Laboratory Tests 12/19/24 05:01 12/15/24 13:25 Test 12/19/24 05:01 Range/Units Serum Glucose 242 H 74-106 mg/dL Microbiology Date/Time Source Procedure Growth Status 12/12/24 15:15 Urine - Catheterized Urine Culture - Final Complete Labs and/or images reviewed: Labs reviewed by me, Image(s) reviewed by me Problem List/Assessment/Plan Problem List/Assessment/Plan 1. Hypertensive urgency Cardiology conult 2. Bilateral lower extremity weakness Medication, monitoring 3. Obesity Diet education, monitor 4. DM II w/ hyperglycemia Insulin Sliding Scale 5. HLD Medication, monitoring 6. GERD Medication, monitoring 7. CVA with residual defects Neurology consult 8. CKD 3B Medication, monitoring 9. Acute CVA MRI of Brain Assessment/Plan Subjective Patient appears to be alert and oriented. Objective Patient has had 2 CVAs while hospitalized. Patient has a left ICA stenosis. Patient has a left ICA stenosis most likely attributed to recurrent CVA. Patient also has underlying history of CKD 3B. Apparently patient originally declined higher level of care and is now requesting to be transferred to higher level of care. Per social services coordinator several major hospitalist have declined higher level of care at this time. Patient was subsequently seen by urologist for bladder mass patient is S/P cystoscopy and was found to have urethral strictures. Patient has Gonzalez catheter that will remain in place. Patient is currently alert and oriented and is able to make all decisions at this time. Plan Continue current medications as recommended by neurology. Vascular surgery consult for left ICA stenosis. director of social services consult to transfer for higher level of care for left ICA stenosis large vessel occlusion. Plan discussed with: Patient, Other Plan discussed with: Patient Dietary Evaluation Review Comments: 1. Recommend adding CHO restriction 75 gm/meal to assist w/ glycemic control and still meet pt's caloric needs 2. Continue ss insulin as needed, consider addition of long-acting insulin 3. Continue frequent BG checks; goal >70, <180 mg/dl while inpatient 4. Given variable intakes, recommend Glucerna oral supplement 1x/day to enhance nutritional status (provides 220 kcal, 10 gm pro, 26 gm CHO) Expected Outcomes/Goals: Improved glycemic control, adequate nutrition, weight maintenance Date of Service: Dec 19, 2024 Billing Provider: BLAKE VICKERS MD Common Visit Codes: 77867-[id number] INP/OBS CARE (MOD) AMELIA HOOPER [employer] Dec 19, 2024 20:49
[2024-12-20] VITALS (8 sets, daily range): BP systolic 147–167; BP diastolic 85–110; PULSE 67–111; RESP 18–19; TEMP 97.4–98.3; O2SAT 93–96
[2024-12-20 09:38] LABS: Alanine Aminotransferase 13 U/L (7-40); Albumin 3.9 g/dL (3.2-4.8); Alkaline Phosphatase 90 U/L (46-116); Anion Gap 7 (5-15); Aspartate Aminotransferase 23 U/L (13-40); BUN/Creatinine Ratio 9.7 (10.0-20.0); Bilirubin, Total 0.3 mg/dL (0.2-1.0); Blood Urea Nitrogen 17 mg/dL (9-23); Calcium 9.5 mg/dL (8.7-10.4); Carbon Dioxide 23 mmol/L (20-31); Chloride 104 mmol/L (98-107); Total Protein 6.8 g/dL (5.7-8.2)
[2024-12-20 09:45] LABS: Glucose 314 mg/dL (74-106); Potassium 5.2 mmol/L (3.5-5.1); Sodium 134 mmol/L (136-145)
--- NOTE | 2024-12-20 11:37 | DVHPN2 ---
Progress Note - Dictate Date Seen: Dec 20, 2024 Medical Necessity Reason Pt with a Central, PICC or Fol: Yes The following are medically ne: Gonzalez Catheter vital signs Vital Sign Date Time Temp Pulse Resp B/P (MAP) Pulse Ox O2 Delivery O2 Flow Rate FiO2 12/20/24 10:26 161/105 12/20/24 09:00 98.2 77 19 95 98.2 12/19/24 20:00 Room Air* 0 21 Total Intake and Output 12/19/24 12/19/24 12/20/24 15:00 23:00 07:00 Intake Total 740 ml 900 ml Output Total 400 ml 800 ml Balance 340 ml 100 ml medications Current Medications Medications Dose Ordered Sig/Abilio Route Start Time Stop Time Status Last Admin Dose Admin Ondansetron HCl 4 mg Q4HP PRN IV 12/09/24 11:00 12/10/24 16:44 4 MG Docusate Sodium 100 mg BIDPRN PRN PO 12/09/24 11:00 12/13/24 10:22 100 MG Enoxaparin Sodium 40 mg DAILY SC 12/10/24 10:00 12/20/24 10:25 40 MG Acetaminophen 650 mg Q6HP PRN PO 12/09/24 11:00 Nitroglycerin 0.4 mg Q5MINP PRN SL 12/09/24 11:00 Diagnostic Test (Pha) 1 strip ACHS 12/09/24 11:30 12/20/24 06:22 1 STRIP Insulin Human Regular ACHS SC 12/09/24 11:30 12/20/24 06:22 4 UNITS Dextrose 50 ml UD PRN IV 12/09/24 11:00 Atorvastatin Calcium 80 mg HS PO 12/09/24 22:00 12/19/24 21:01 80 MG Aspirin 81 mg DAILY PO 12/09/24 13:15 12/20/24 10:25 81 MG Pantoprazole Sodium 40 mg DAILY IV 12/11/24 10:00 12/20/24 10:25 40 MG Losartan Potassium 50 mg BID PO 12/10/24 22:00 12/20/24 10:26 50 MG Clonidine HCl 0.2 mg BID PO 12/11/24 16:45 12/20/24 10:26 0.2 MG Hydralazine HCl 10 mg Q6HP PRN IV 12/17/24 15:30 12/19/24 23:12 10 MG laboratory and microbiology Laboratory Tests 12/20/24 08:53 Test 12/20/24 08:53 Range/Units Serum Glucose 314 H 74-106 mg/dL Assessment/Plan Patient is a 69-year-old gentleman who presented to the hospital for worsening bilateral lower extremity weakness and swelling. He did have some headaches. He mentions that he has not been able to walk for the past 2 days. It is of note that the patient did have a CVA back in August 2024. Since that time he was able to walk with cane but for the past 2 days he is unable to. Cardiology was involved for cardiac aspects of care. He denies chest pains. He denies shortness of breath. He denies loss of consciousness. He denies dizziness. Morbidly obese. Not in acute distress. Not using accessory muscles of breathing. No JVD. Speaks slowly. Mucosa is pink and wet. No goiter. No carotid bruit. Lungs are clear to auscultation. Cardiac: Regular, no thrill/gallop. Abdomen is soft. There is no gross mass. Bowel sound is positive. Dorsalis pedis is 2+ bilateral Past medical history includes hypertension, diabetes mellitus, morbid obesity, history of CVA, CKD, old history of GI bleeding anemia, GERD, hyperlipidemia, hiatal hernia and old history of hepatitis-C. Does have history of smoking. Denies alcohol and drug abuse. Family history is positive for hypertension/CVA and heart murmur Echocardiogram of August 03, 2023 had reported mild concentric left ventricular hypertrophy, aortic sclerosis, ejection fraction of 65-70% and no vegetation Echocardiogram of August 2024 revealed ejection fraction of 60-65% Troponin (high sensitive): 3 LDL: 203 CT of the head reported: IMPRESSION: 1. No acute intracranial process. 2. Moderate chronic microvascular ischemic changes. Repeat CT of head reported: IMPRESSION: 1. Generalized brain atrophy. 2. Small vessel ischemic/degenerative changes. 3. No acute intracranial hemorrhage, midline shift or mass effect. If symptoms persist, further evaluation with MRI is recommended. MRI of the brain revealed: IMPRESSION: 1. Small foci of acute ischemia in the right thalamus and left parietal cortex. No intracranial hemorrhage. 2. Extensive chronic microvascular ischemic changes, advanced for patient's age. Repeat MRI of brain reported: IMPRESSION: 1. Acute infarcts in the right prasad radiata , left parietal subcortical region, posteromedial left temporal lobe. Given the bilaterality, correlate for thromboembolic, vasospastic etiology 2. Moderate to advanced chronic microvascular ischemic changes. 3. Mild global cerebral volume loss. MRI/MRA of the brain reported: IMPRESSION: 1. High-grade stenosis in the left intracranial ICA. 2. Short-segment occlusion of distal M2 segment of the left MCA. 3. Short-segment moderate stenosis of the proximal A2 segment of the left GILMA. 4. Short-segment occlusion of A3 segment of the right GILMA. 5. Moderate stenosis of the proximal basilar artery. 6. Hypoplastic right vertebral artery short-segment foci of high-grade stenosis and occlusion of the V3 segment. Critical Result: Large vessel occlusion Chest xry reported: IMPRESSION: No evidence of acute disease in the chest. Renal ultrasound revealed: FINDINGS: The right kidney measures 10 cm in length, which is normal in size. There is normal echogenicity of the right kidney. No hydronephrosis. The left kidney measures 10 cm in length, which is normal in size. There is normal echogenicity of the left kidney. No hydronephrosis. Bladder mass measuring 7.3 cm. IMPRESSION: Possible hyperechoic bladder mass. Cystoscopy recommended Cystogram reported; IMPRESSION: A large bladder diverticulum is seen at the bladder dome with an additional smaller diverticulum seen just laterally. EKG reveals sinus rhythm with no specific ST-T changes. Tele reveals sinus rhythm Echocardiogram reported: Left ventricle: Concentric left ventricular hypertrophy was seen. LVEF was 60-65%. There was no gross wall motion abnormality. Right ventricle was normal sized with normal systolic function. Left atrium was dilated. Right atrium was normal sized. Aortic valve: Aortic valve was trileaflet. There was no aortic insufficiency/stenosis. There was trivial mitral regurgitation. There was no tricuspid regurgitation. There was no pulmonary valve insufficiency. There was no pericardial effusion. As there was no good tricuspid regurgitation jet, right ventricular systolic pressure could not be estimated. There was no echocardiographic evidence for pulmonary hypertension. IVC was normal sized with normal respiratory variation. CLAUDY did not reveal any Cardiac source for Emboli Patient is a 69-year-old gentleman who presented with lower extremity weakness. Imaging/CT/MRI has revealed CVA. Acute coronary syndrome is not considered at this point. Cardiac etiology for presentation is less likely. CVA, acute Morbid obesity Diabetes mellitus Hypertension Hiatal hernia GI bleeding, history of CKD Kidney mass s/p cystoscopy Bladder Diverticulum Cardiac suggestion for management: Manage on telemetry Follow-up electrolytes and kidney function tests and correct abnormalities Aspirin daily High potency statin Management / goal of blood pressure as per Neurology Status post CLAUDY revealing no cardiac source of emboli observed Neurology follow up (suggested for transferring to higher level of care) Cardiac miranda, stable Further evaluation and management depends on the above and clinical course A total of 55 minutes was spent reviewing the patient record, examining the patient, making a diagnostic and therapeutic plan, discussing this plan with medical personnel, following up on diagnostic studies and following the patient for clinical stability excluding any and all procedures. At least 50% of this time was spent in direct, [id number] contact. Thank you for allowing me to participate in this patient's care. Further recommendations will depend on patient's clinical course. Please do not hesitate to contact me if you have any questions or concerns. This medical document was created using electronic medical record system with [employer] computerized dictation system. Although this document has been carefully reviewed, there may still be some phonetic and typographical errors. These areas are purely typographical due to the imperfection of the software programs, and do not reflect any compromise in the patient's medical care. Dietary Evaluation Review Comments: 1. Recommend adding CHO restriction 75 gm/meal to assist w/ glycemic control and still meet pt's caloric needs 2. Continue ss insulin as needed, consider addition of long-acting insulin 3. Continue frequent BG checks; goal >70, <180 mg/dl while inpatient 4. Given variable intakes, recommend Glucerna oral supplement 1x/day to enhance nutritional status (provides 220 kcal, 10 gm pro, 26 gm CHO) Expected Outcomes/Goals: Improved glycemic control, adequate nutrition, weight maintenance Plan discussed with: Patient, Other (nurse) NEVAEH FALCON MD Dec 20, 2024 11:37
[2024-12-20 12:23] LABS: Basophils # (auto) 0 10 ^3/uL (0-0.2); Basophils % (auto) 0.4 % (0.0-2.0); Eosinophils # (auto) 0 10 ^3/uL (0-0.8); Eosinophils % (auto) 0.9 % (0.0-7.0); Hematocrit 35.9 % (41.0-53.0); Hemoglobin 11.7 g/dL (13.5-17.5); Lymphocytes # (auto) 1.6 10 ^3/uL (0.4-5.4); Lymphocytes % (auto) 33.2 % (10.0-50.0); Mean Corpuscular Hemoglobin 27.9 pg (28.0-32.0); Mean Corpuscular Hgb Conc. 32.6 g/dL (32.0-36.0); Mean Corpuscular Volume 85.7 fL (80.0-100.0); Monocytes # (auto) 0.6 10 ^3/uL (0-1.3); Monocytes % (auto) 11.8 % (0.0-12.0); Neutrophils # (auto) 2.6 10 ^3/uL (1.6-8.6); Neutrophils % (auto) 53.7 % (37.0-80.0); Nucleated Red Blood Cells % 0.3 %; Platelet Count (auto) 200 10^3/uL (140-450); Red Blood Cells 4.18 10^6/uL (4.5-5.90); Red Cell Distribution Width 17.4 % (11.8-14.3); White Blood Cell 4.8 10^3/uL (4.4-10.8)
--- NOTE | 2024-12-20 15:30 | DVHPN2 ---
Progress Note Date Seen: Dec 20, 2024 Medical Necessity Reason Pt with a Central, PICC or Fol: Yes The following are medically ne: Link Catheter Objective vital signs Vital Sign Date Time Temp Pulse Resp B/P (MAP) Pulse Ox O2 Delivery O2 Flow Rate FiO2 12/20/24 13:00 98.3 67 18 167/99 (121) 95 98.3 12/19/24 20:00 Room Air* 0 21 Total Intake and Output 12/19/24 12/19/24 12/20/24 15:00 23:00 07:00 Intake Total 740 ml 900 ml Output Total 400 ml 800 ml Balance 340 ml 100 ml medications Current Medications Medications Dose Ordered Sig/Abilio Route Start Time Stop Time Status Last Admin Dose Admin Ondansetron HCl 4 mg Q4HP PRN IV 12/09/24 11:00 12/10/24 16:44 4 MG Docusate Sodium 100 mg BIDPRN PRN PO 12/09/24 11:00 12/13/24 10:22 100 MG Enoxaparin Sodium 40 mg DAILY SC 12/10/24 10:00 12/20/24 10:25 40 MG Acetaminophen 650 mg Q6HP PRN PO 12/09/24 11:00 Nitroglycerin 0.4 mg Q5MINP PRN SL 12/09/24 11:00 Diagnostic Test (Pha) 1 strip ACHS 12/09/24 11:30 12/20/24 11:57 1 STRIP Insulin Human Regular ACHS SC 12/09/24 11:30 12/20/24 12:05 4 UNITS Dextrose 50 ml UD PRN IV 12/09/24 11:00 Atorvastatin Calcium 80 mg HS PO 12/09/24 22:00 12/19/24 21:01 80 MG Aspirin 81 mg DAILY PO 12/09/24 13:15 12/20/24 10:25 81 MG Pantoprazole Sodium 40 mg DAILY IV 12/11/24 10:00 12/20/24 10:25 40 MG Losartan Potassium 50 mg BID PO 12/10/24 22:00 12/20/24 10:26 50 MG Clonidine HCl 0.2 mg BID PO 12/11/24 16:45 12/20/24 10:26 0.2 MG Hydralazine HCl 10 mg Q6HP PRN IV 12/17/24 15:30 12/19/24 23:12 10 MG Carvedilol 6.25 mg Q12HR PO 12/20/24 22:00 Nifedipine 30 mg DAILY PO 12/21/24 10:00 Examination: GENERAL:Abnormal, CVS:Normal, :Abnormal laboratory and microbiology Laboratory Tests 12/20/24 12:04 12/20/24 08:53 Test 12/20/24 08:53 Range/Units Serum Glucose 314 H 74-106 mg/dL Microbiology Date/Time Source Procedure Growth Status 12/12/24 15:15 Urine - Catheterized Urine Culture - Final Complete Problem List/Assessment/Plan Problem List/Assessment/Plan Acute kidney injury on Chronic kidney disease IIIb hemodynamic mediated in the setting of hypertensive urgency Hypertensive urgency secondary to noncompliance Acute CVA, left ICA stenosis Diabetes Obesity Proteinuria bladder mass-> bladder Diverticulum hydralazine, coreg, nifedipine Kidney ultrasound--bladder mass-urology consulted Blood Pressure control ARB -> cancel due to hyperkalemia and increased cr. change to hydralazine change diet to potassium restriction link Plan discussed with: Patient Dietary Evaluation Review Comments: 1. Recommend adding CHO restriction 75 gm/meal to assist w/ glycemic control and still meet pt's caloric needs 2. Continue ss insulin as needed, consider addition of long-acting insulin 3. Continue frequent BG checks; goal >70, <180 mg/dl while inpatient 4. Given variable intakes, recommend Glucerna oral supplement 1x/day to enhance nutritional status (provides 220 kcal, 10 gm pro, 26 gm CHO) Expected Outcomes/Goals: Improved glycemic control, adequate nutrition, weight maintenance XIANG HENAO MD Dec 20, 2024 15:30
[2024-12-20] MEDS: hydrALAZINE HCL 25 MG TAB PO SCH (17:20)
[2024-12-20] MEDS: NIFEdipine 10 MG CAP PO ONE (17:21)
[2024-12-20] MEDS: SODIUM BICARB 8.4% 50Meq/50ml SYR Vial IV ONE (17:21)
[2024-12-20] MEDS: SODIUM ZIRCONIUM CYCL 10 GM PAK PO ONE (17:21)
--- NOTE | 2024-12-20 17:56 | DVHPN2 ---
Progress Note Date Seen: Dec 20, 2024 Medical Necessity Reason Pt with a Central, PICC or Fol: Yes The following are medically ne: Gonzalez Catheter Subjective Review of Systems: CVS:Normal, RESPIRATORY:Normal, GI:Normal, :Normal, NEURO:Normal Objective vital signs Vital Sign Date Time Temp Pulse Resp B/P (MAP) Pulse Ox O2 Delivery O2 Flow Rate FiO2 12/20/24 17:21 167/99 12/20/24 17:00 98.0 75 18 96 98.0 12/19/24 20:00 Room Air* 0 21 Total Intake and Output 12/19/24 12/19/24 12/20/24 15:00 23:00 07:00 Intake Total 740 ml 900 ml Output Total 400 ml 800 ml Balance 340 ml 100 ml medications Current Medications Medications Dose Ordered Sig/Abilio Route Start Time Stop Time Status Last Admin Dose Admin Ondansetron HCl 4 mg Q4HP PRN IV 12/09/24 11:00 12/10/24 16:44 4 MG Docusate Sodium 100 mg BIDPRN PRN PO 12/09/24 11:00 12/13/24 10:22 100 MG Enoxaparin Sodium 40 mg DAILY SC 12/10/24 10:00 12/20/24 10:25 40 MG Acetaminophen 650 mg Q6HP PRN PO 12/09/24 11:00 Nitroglycerin 0.4 mg Q5MINP PRN SL 12/09/24 11:00 Diagnostic Test (Pha) 1 strip ACHS 12/09/24 11:30 12/20/24 17:21 1 STRIP Insulin Human Regular ACHS SC 12/09/24 11:30 12/20/24 17:00 4 UNITS Dextrose 50 ml UD PRN IV 12/09/24 11:00 Atorvastatin Calcium 80 mg HS PO 12/09/24 22:00 12/19/24 21:01 80 MG Aspirin 81 mg DAILY PO 12/09/24 13:15 12/20/24 10:25 81 MG Pantoprazole Sodium 40 mg DAILY IV 12/11/24 10:00 12/20/24 10:25 40 MG Clonidine HCl 0.2 mg BID PO 12/11/24 16:45 12/20/24 10:26 0.2 MG Hydralazine HCl 10 mg Q6HP PRN IV 12/17/24 15:30 12/19/24 23:12 10 MG Carvedilol 6.25 mg Q12HR PO 12/20/24 22:00 Nifedipine 30 mg DAILY PO 12/21/24 10:00 Hydralazine HCl 50 mg Q6HR PO 12/20/24 15:30 12/20/24 17:20 50 MG Examination: GENERAL:Normal, LUNGS:Normal, CVS:Normal, ABDOMEN:Normal, SKIN:Normal, NEURO:Normal laboratory and microbiology Laboratory Tests 12/20/24 12:04 12/20/24 08:53 Test 12/20/24 08:53 Range/Units Serum Glucose 314 H 74-106 mg/dL Microbiology Date/Time Source Procedure Growth Status 12/12/24 15:15 Urine - Catheterized Urine Culture - Final Complete Labs and/or images reviewed: Labs reviewed by me, Image(s) reviewed by me Problem List/Assessment/Plan Problem List/Assessment/Plan 1. Hypertensive urgency Cardiology conult 2. Bilateral lower extremity weakness Medication, monitoring 3. Obesity Diet education, monitor 4. DM II w/ hyperglycemia Insulin Sliding Scale 5. HLD Medication, monitoring 6. GERD Medication, monitoring 7. CVA with residual defects Neurology consult 8. CKD 3B Medication, monitoring 9. Acute CVA MRI of Brain Assessment/Plan Subjective Patient appears to be alert and oriented. Objective Patient has had 2 CVAs while hospitalized. Patient has a left ICA stenosis. Patient has a left ICA stenosis most likely attributed to recurrent CVA. Patient also has underlying history of CKD 3B. Apparently patient originally declined higher level of care and is now requesting to be transferred to higher level of care. Per marriage and family social worker several major hospitalist have declined higher level of care at this time. Patient was subsequently seen by urologist for bladder mass patient is S/P cystoscopy and was found to have urethral strictures. Patient has Gonzalez catheter that will remain in place. Patient is currently alert and oriented and is able to make all decisions at this time. We will major changes in patients status, we will continue with current treatment. Plan Continue current medications as recommended by neurology. Vascular surgery consult for left ICA stenosis. web services professional consult to transfer for higher level of care for left ICA stenosis large vessel occlusion. Plan discussed with: Patient, Other Plan discussed with: Patient My Orders My Orders Orders - AMELIA HOOPER Procedure Category Date Status Time Carvedilol Tablet PHA 12/20/24 In Process (Coreg Tablet) 22:00 Nifedipine Capsule PHA 12/21/24 In Process (Procardia Capsule) 10:00 Dietary Evaluation Review Comments: 1. Recommend adding CHO restriction 75 gm/meal to assist w/ glycemic control and still meet pt's caloric needs 2. Continue ss insulin as needed, consider addition of long-acting insulin 3. Continue frequent BG checks; goal >70, <180 mg/dl while inpatient 4. Given variable intakes, recommend Glucerna oral supplement 1x/day to enhance nutritional status (provides 220 kcal, 10 gm pro, 26 gm CHO) Expected Outcomes/Goals: Improved glycemic control, adequate nutrition, weight maintenance Date of Service: Dec 20, 2024 Billing Provider: BLAKE VICKERS MD Common Visit Codes: 72421-[id number] INP/OBS CARE (MOD) AMELIA HOOPER [employer]OR Dec 20, 2024 17:56
--- NOTE | 2024-12-20 19:06 | DVHPN2 ---
Progress Note - Dictate Date Seen: Dec 20, 2024 Medical Necessity Reason Pt with a Central, PICC or Fol: Yes The following are medically ne: Gonzalez Catheter Subjective Patient seen at bedside Awake alert in no acute distress Tolerating diet No abdominal pain and he had a bowel movement yesterday which was normal vital signs Vital Sign Date Time Temp Pulse Resp B/P (MAP) Pulse Ox O2 Delivery O2 Flow Rate FiO2 12/20/24 18:37 166/110 12/20/24 17:00 98.0 75 18 96 98.0 12/20/24 08:00 Room Air* 0 21 Total Intake and Output 12/19/24 12/19/24 12/20/24 14:59 22:59 06:59 Intake Total 740 ml 900 ml Output Total 400 ml 800 ml Balance 340 ml 100 ml medications Current Medications Medications Dose Ordered Sig/Abilio Route Start Time Stop Time Status Last Admin Dose Admin Ondansetron HCl 4 mg Q4HP PRN IV 12/09/24 11:00 12/10/24 16:44 4 MG Docusate Sodium 100 mg BIDPRN PRN PO 12/09/24 11:00 12/13/24 10:22 100 MG Enoxaparin Sodium 40 mg DAILY SC 12/10/24 10:00 12/20/24 10:25 40 MG Acetaminophen 650 mg Q6HP PRN PO 12/09/24 11:00 Nitroglycerin 0.4 mg Q5MINP PRN SL 12/09/24 11:00 Diagnostic Test (Pha) 1 strip ACHS 12/09/24 11:30 12/20/24 17:21 1 STRIP Insulin Human Regular ACHS SC 12/09/24 11:30 12/20/24 17:00 4 UNITS Dextrose 50 ml UD PRN IV 12/09/24 11:00 Atorvastatin Calcium 80 mg HS PO 12/09/24 22:00 12/19/24 21:01 80 MG Aspirin 81 mg DAILY PO 12/09/24 13:15 12/20/24 10:25 81 MG Pantoprazole Sodium 40 mg DAILY IV 12/11/24 10:00 12/20/24 10:25 40 MG Clonidine HCl 0.2 mg BID PO 12/11/24 16:45 12/20/24 10:26 0.2 MG Hydralazine HCl 10 mg Q6HP PRN IV 12/17/24 15:30 12/19/24 23:12 10 MG Carvedilol 6.25 mg Q12HR PO 12/20/24 22:00 Nifedipine 30 mg DAILY PO 12/21/24 10:00 Hydralazine HCl 50 mg Q6HR PO 12/20/24 15:30 12/20/24 18:37 50 MG objective General: NAD, AAOX3 Chest: lung godfrey clear to auscultation Heart: RRR, no murmur Abdomen: non-distended, no tenderness to palpation, +BS laboratory and microbiology Laboratory Tests 12/20/24 12:04 12/20/24 08:53 Test 12/20/24 08:53 Range/Units Serum Glucose 314 H 74-106 mg/dL Problems(with codes): (1) Hepatitis C antibody positive in blood (2) Generalized weakness (3) Anemia (4) Uncontrolled diabetes mellitus (5) Hypertensive emergency (6) CVA (cerebral vascular accident) Prognosis Plan Patient is referred to higher level of care for possible vascular intervention of left ICA stenosis Patient appears to be stable from GI point of view He will follow up with GI Services as an outpatient for elective management and treatment of hep C Dietary Evaluation Review Comments: 1. Recommend adding CHO restriction 75 gm/meal to assist w/ glycemic control and still meet pt's caloric needs 2. Continue ss insulin as needed, consider addition of long-acting insulin 3. Continue frequent BG checks; goal >70, <180 mg/dl while inpatient 4. Given variable intakes, recommend Glucerna oral supplement 1x/day to enhance nutritional status (provides 220 kcal, 10 gm pro, 26 gm CHO) Expected Outcomes/Goals: Improved glycemic control, adequate nutrition, weight maintenance Plan discussed with: Patient, Other (Nurse) KAREL PRITCHARD MD Dec 20, 2024 19:05
[2024-12-20] MEDS: CARVEDILOL 3.125 MG TAB PO SCH (21:40)
[2024-12-21] VITALS (8 sets, daily range): BP systolic 127–152; BP diastolic 77–103; PULSE 78–85; RESP 17–20; TEMP 97.7–98.3; O2SAT 95–98
--- NOTE | 2024-12-21 07:32 | DVHPN2 ---
Progress Note - Dictate Date Seen: Dec 21, 2024 Medical Necessity Reason Pt with a Central, PICC or Fol: Yes The following are medically ne: Gonzalez Catheter vital signs Vital Sign Date Time Temp Pulse Resp B/P (MAP) Pulse Ox O2 Delivery O2 Flow Rate FiO2 12/21/24 05:57 139/88 12/21/24 05:00 98.1 81 18 95 98.1 12/20/24 20:00 Room Air* 0 21 Total Intake and Output 12/20/24 12/20/24 12/21/24 15:00 23:00 07:00 Intake Total 584 ml 400 ml Output Total 750 ml 550 ml Balance -166 ml -150 ml medications Current Medications Medications Dose Ordered Sig/Abilio Route Start Time Stop Time Status Last Admin Dose Admin Ondansetron HCl 4 mg Q4HP PRN IV 12/09/24 11:00 12/10/24 16:44 4 MG Docusate Sodium 100 mg BIDPRN PRN PO 12/09/24 11:00 12/13/24 10:22 100 MG Enoxaparin Sodium 40 mg DAILY SC 12/10/24 10:00 12/20/24 10:25 40 MG Acetaminophen 650 mg Q6HP PRN PO 12/09/24 11:00 Nitroglycerin 0.4 mg Q5MINP PRN SL 12/09/24 11:00 Diagnostic Test (Pha) 1 strip ACHS 12/09/24 11:30 12/21/24 05:57 1 STRIP Insulin Human Regular ACHS SC 12/09/24 11:30 12/21/24 06:01 4 UNITS Dextrose 50 ml UD PRN IV 12/09/24 11:00 Atorvastatin Calcium 80 mg HS PO 12/09/24 22:00 12/20/24 21:37 80 MG Aspirin 81 mg DAILY PO 12/09/24 13:15 12/20/24 10:25 81 MG Pantoprazole Sodium 40 mg DAILY IV 12/11/24 10:00 12/20/24 10:25 40 MG Clonidine HCl 0.2 mg BID PO 12/11/24 16:45 12/20/24 23:08 0.2 MG Hydralazine HCl 10 mg Q6HP PRN IV 12/17/24 15:30 12/19/24 23:12 10 MG Carvedilol 6.25 mg Q12HR PO 12/20/24 22:00 12/20/24 21:40 6.25 MG Nifedipine 30 mg DAILY PO 12/21/24 10:00 Hydralazine HCl 50 mg Q6HR PO 12/20/24 15:30 12/21/24 05:57 50 MG Insulin Glargine 15 units DAILY@1000 SC 12/21/24 10:00 UNV laboratory and microbiology Laboratory Tests 12/20/24 12:04 12/20/24 08:53 Test 12/20/24 08:53 Range/Units Serum Glucose 314 H 74-106 mg/dL Assessment/Plan Patient is a 69-year-old gentleman who presented to the hospital for worsening bilateral lower extremity weakness and swelling. He did have some headaches. He mentions that he has not been able to walk for the past 2 days. It is of note that the patient did have a CVA back in August 2024. Since that time he was able to walk with cane but for the past 2 days he is unable to. Cardiology was involved for cardiac aspects of care. He denies chest pains. He denies shortness of breath. He denies loss of consciousness. He denies dizziness. Morbidly obese. Not in acute distress. Not using accessory muscles of breathing. No JVD. Speaks slowly. Mucosa is pink and wet. No goiter. No carotid bruit. Lungs are clear to auscultation. Cardiac: Regular, no thrill/gallop. Abdomen is soft. There is no gross mass. Bowel sound is positive. Dorsalis pedis is 2+ bilateral Past medical history includes hypertension, diabetes mellitus, morbid obesity, history of CVA, CKD, old history of GI bleeding anemia, GERD, hyperlipidemia, hiatal hernia and old history of hepatitis-C. Does have history of smoking. Denies alcohol and drug abuse. Family history is positive for hypertension/CVA and heart murmur Echocardiogram of August 03, 2023 had reported mild concentric left ventricular hypertrophy, aortic sclerosis, ejection fraction of 65-70% and no vegetation Echocardiogram of August 2024 revealed ejection fraction of 60-65% Troponin (high sensitive): 3 LDL: 203 CT of the head reported: IMPRESSION: 1. No acute intracranial process. 2. Moderate chronic microvascular ischemic changes. Repeat CT of head reported: IMPRESSION: 1. Generalized brain atrophy. 2. Small vessel ischemic/degenerative changes. 3. No acute intracranial hemorrhage, midline shift or mass effect. If symptoms persist, further evaluation with MRI is recommended. MRI of the brain revealed: IMPRESSION: 1. Small foci of acute ischemia in the right thalamus and left parietal cortex. No intracranial hemorrhage. 2. Extensive chronic microvascular ischemic changes, advanced for patient's age. Repeat MRI of brain reported: IMPRESSION: 1. Acute infarcts in the right prasad radiata , left parietal subcortical region, posteromedial left temporal lobe. Given the bilaterality, correlate for thromboembolic, vasospastic etiology 2. Moderate to advanced chronic microvascular ischemic changes. 3. Mild global cerebral volume loss. MRI/MRA of the brain reported: IMPRESSION: 1. High-grade stenosis in the left intracranial ICA. 2. Short-segment occlusion of distal M2 segment of the left MCA. 3. Short-segment moderate stenosis of the proximal A2 segment of the left GILMA. 4. Short-segment occlusion of A3 segment of the right GILMA. 5. Moderate stenosis of the proximal basilar artery. 6. Hypoplastic right vertebral artery short-segment foci of high-grade stenosis and occlusion of the V3 segment. Critical Result: Large vessel occlusion Chest xry reported: IMPRESSION: No evidence of acute disease in the chest. Renal ultrasound revealed: FINDINGS: The right kidney measures 10 cm in length, which is normal in size. There is normal echogenicity of the right kidney. No hydronephrosis. The left kidney measures 10 cm in length, which is normal in size. There is normal echogenicity of the left kidney. No hydronephrosis. Bladder mass measuring 7.3 cm. IMPRESSION: Possible hyperechoic bladder mass. Cystoscopy recommended Cystogram reported; IMPRESSION: A large bladder diverticulum is seen at the bladder dome with an additional smaller diverticulum seen just laterally. EKG reveals sinus rhythm with no specific ST-T changes. Tele reveals sinus rhythm Echocardiogram reported: Left ventricle: Concentric left ventricular hypertrophy was seen. LVEF was 60-65%. There was no gross wall motion abnormality. Right ventricle was normal sized with normal systolic function. Left atrium was dilated. Right atrium was normal sized. Aortic valve: Aortic valve was trileaflet. There was no aortic insufficiency/stenosis. There was trivial mitral regurgitation. There was no tricuspid regurgitation. There was no pulmonary valve insufficiency. There was no pericardial effusion. As there was no good tricuspid regurgitation jet, right ventricular systolic pressure could not be estimated. There was no echocardiographic evidence for pulmonary hypertension. IVC was normal sized with normal respiratory variation. CLAUDY did not reveal any Cardiac source for Emboli Patient is a 69-year-old gentleman who presented with lower extremity weakness. Imaging/CT/MRI has revealed CVA. Acute coronary syndrome is not considered at this point. Cardiac etiology for presentation is less likely. CVA, acute Morbid obesity Diabetes mellitus Hypertension Hiatal hernia GI bleeding, history of CKD Kidney mass s/p cystoscopy Bladder Diverticulum Cardiac suggestion for management: Manage on telemetry Follow-up electrolytes and kidney function tests and correct abnormalities Aspirin daily High potency statin Management / goal of blood pressure as per Neurology Status post CLAUDY revealing no cardiac source of emboli observed Neurology follow up (suggested for transferring to higher level of care) Cardiac miranda, stable Further evaluation and management depends on the above and clinical course A total of 55 minutes was spent reviewing the patient record, examining the patient, making a diagnostic and therapeutic plan, discussing this plan with medical personnel, following up on diagnostic studies and following the patient for clinical stability excluding any and all procedures. At least 50% of this time was spent in direct, [id number] contact. Thank you for allowing me to participate in this patient's care. Further recommendations will depend on patient's clinical course. Please do not hesitate to contact me if you have any questions or concerns. This medical document was created using electronic medical record system with [employer] computerized dictation system. Although this document has been carefully reviewed, there may still be some phonetic and typographical errors. These areas are purely typographical due to the imperfection of the software programs, and do not reflect any compromise in the patient's medical care. Dietary Evaluation Review Comments: 1. Recommend adding CHO restriction 75 gm/meal to assist w/ glycemic control and still meet pt's caloric needs 2. Continue ss insulin as needed, consider addition of long-acting insulin 3. Continue frequent BG checks; goal >70, <180 mg/dl while inpatient 4. Given variable intakes, recommend Glucerna oral supplement 1x/day to enhance nutritional status (provides 220 kcal, 10 gm pro, 26 gm CHO) Expected Outcomes/Goals: Improved glycemic control, adequate nutrition, weight maintenance Plan discussed with: Other (nurse) NEVAEH FALCON MD Dec 21, 2024 07:32
[2024-12-21 08:02] LABS: Basophils # (auto) 0 10 ^3/uL (0-0.2); Eosinophils # (auto) 0.1 10 ^3/uL (0-0.8); Eosinophils % (auto) 1.5 % (0.0-7.0); Hematocrit 34.2 % (41.0-53.0); Hemoglobin 11.2 g/dL (13.5-17.5); Lymphocytes # (auto) 1.6 10 ^3/uL (0.4-5.4); Lymphocytes % (auto) 35.3 % (10.0-50.0); Mean Corpuscular Hemoglobin 28.2 pg (28.0-32.0); Mean Corpuscular Hgb Conc. 32.6 g/dL (32.0-36.0); Mean Corpuscular Volume 86.5 fL (80.0-100.0); Monocytes # (auto) 0.6 10 ^3/uL (0-1.3); Monocytes % (auto) 13.8 % (0.0-12.0); Neutrophils # (auto) 2.2 10 ^3/uL (1.6-8.6); Neutrophils % (auto) 48.4 % (37.0-80.0); Nucleated Red Blood Cells % 0.2 %; Platelet Count (auto) 201 10^3/uL (140-450); Red Blood Cells 3.96 10^6/uL (4.5-5.90); Red Cell Distribution Width 17.1 % (11.8-14.3); White Blood Cell 4.6 10^3/uL (4.4-10.8)
[2024-12-21 08:18] LABS: Chloride 105 mmol/L (98-107); Sodium 138 mmol/L (136-145)
[2024-12-21 08:19] LABS: Anion Gap 9 (5-15); Calcium 8.8 mg/dL (8.7-10.4); Carbon Dioxide 24 mmol/L (20-31)
[2024-12-21 08:24] LABS: BUN/Creatinine Ratio 12.4 (10.0-20.0); Blood Urea Nitrogen 19 mg/dL (9-23)
[2024-12-21 08:25] LABS: Magnesium 1.7 mg/dL (1.6-2.6)
[2024-12-21 08:35] LABS: Glucose 191 mg/dL (74-106)
[2024-12-21] MEDS: NIFEdipine 10 MG CAP PO SCH (11:18)
[2024-12-21] MEDS: INSULIN LANTUS (GLARGINE) 1 /0.01ml (100units/ml) SC SCH ×2 (11:28→22:18)
--- NOTE | 2024-12-21 15:10 | DVHPN2 ---
Progress Note Date Seen: Dec 21, 2024 Medical Necessity Reason Pt with a Central, PICC or Fol: Yes The following are medically ne: Gonzalez Catheter Subjective Review of Systems: CVS:Normal, RESPIRATORY:Normal, GI:Normal, NEURO:Normal Objective vital signs Vital Sign Date Time Temp Pulse Resp B/P (MAP) Pulse Ox O2 Delivery O2 Flow Rate FiO2 12/21/24 13:07 148/91 12/21/24 11:18 84 12/21/24 09:00 98.2 19 96 98.2 12/21/24 08:00 Room Air* 0 21 Total Intake and Output 12/20/24 12/20/24 12/21/24 15:00 23:00 07:00 Intake Total 584 ml 400 ml Output Total 750 ml 550 ml Balance -166 ml -150 ml medications Current Medications Medications Dose Ordered Sig/Abilio Route Start Time Stop Time Status Last Admin Dose Admin Ondansetron HCl 4 mg Q4HP PRN IV 12/09/24 11:00 12/10/24 16:44 4 MG Docusate Sodium 100 mg BIDPRN PRN PO 12/09/24 11:00 12/13/24 10:22 100 MG Acetaminophen 650 mg Q6HP PRN PO 12/09/24 11:00 Nitroglycerin 0.4 mg Q5MINP PRN SL 12/09/24 11:00 Diagnostic Test (Pha) 1 strip ACHS 12/09/24 11:30 12/21/24 11:19 1 STRIP Insulin Human Regular ACHS SC 12/09/24 11:30 12/21/24 11:33 3 UNITS Dextrose 50 ml UD PRN IV 12/09/24 11:00 Atorvastatin Calcium 80 mg HS PO 12/09/24 22:00 12/20/24 21:37 80 MG Aspirin 81 mg DAILY PO 12/09/24 13:15 12/21/24 11:17 81 MG Pantoprazole Sodium 40 mg DAILY IV 12/11/24 10:00 12/21/24 11:17 40 MG Clonidine HCl 0.2 mg BID PO 12/11/24 16:45 12/21/24 11:19 0.2 MG Hydralazine HCl 10 mg Q6HP PRN IV 12/17/24 15:30 12/19/24 23:12 10 MG Nifedipine 30 mg DAILY PO 12/21/24 10:00 12/21/24 11:18 30 MG Hydralazine HCl 50 mg Q6HR PO 12/20/24 15:30 12/21/24 13:07 50 MG Insulin Glargine 15 units DAILY@1000 SC 12/21/24 10:00 12/21/24 11:28 15 UNITS Carvedilol 12.5 mg Q12HR PO 12/21/24 22:00 Examination: GENERAL:Normal, LUNGS:Normal, CVS:Normal, ABDOMEN:Normal, SKIN:Normal, NEURO:Normal laboratory and microbiology Laboratory Tests 12/21/24 06:23 Test 12/21/24 06:23 Range/Units Serum Glucose 191 #H 74-106 mg/dL Microbiology Date/Time Source Procedure Growth Status 12/12/24 15:15 Urine - Catheterized Urine Culture - Final Complete Labs and/or images reviewed: Labs reviewed by me, Image(s) reviewed by me Problem List/Assessment/Plan Problem List/Assessment/Plan 1. Hypertensive urgency Cardiology conult 2. Bilateral lower extremity weakness Medication, monitoring 3. Obesity Diet education, monitor 4. DM II w/ hyperglycemia Insulin Sliding Scale 5. HLD Medication, monitoring 6. GERD Medication, monitoring 7. CVA with residual defects Neurology consult 8. CKD 3B Medication, monitoring 9. Acute CVA MRI of Brain 10. Hyperkalemia Resolve Assessment/Plan Subjective Patient appears to be alert and oriented. Objective Patient has had 2 CVAs while hospitalized. Patient has a left ICA stenosis. Patient has a left ICA stenosis most likely attributed to recurrent CVA. Patient also has underlying history of CKD 3B. Apparently patient originally declined higher level of care and is now requesting to be transferred to higher level of care. Per social media specialist several major hospitalist have declined higher level of care at this time. Patient has now been accepted by for [facility]. Patient was subsequently seen by urologist for bladder mass patient is S/P cystoscopy and was found to have urethral strictures. Patient has Gonzalez catheter that will remain in place. Patient is currently alert and oriented and is able to make all decisions at this time. Report was given to [facility], and agreed to take patient for transfer to higher level of care. Patient did work with Physical therapy and was able to walk to nurses station.. Diastolic blood pressure is above 100 increase carvedilol to 12.5 b.i.d. Plan Continue current medications as recommended by neurology. Vascular surgery consult for left ICA stenosis. director of business services consult to transfer for higher level of care for left ICA stenosis large vessel occlusion, was accepted to [facility] Plan discussed with: Patient, Other Plan discussed with: Patient My Orders My Orders Orders - AMELIA HOOPER Procedure Category Date Status Time Insulin Lantus PHA 12/21/24 In Process (Glargine) (Lantus) 10:00 Carvedilol Tablet PHA 12/21/24 In Process (Coreg Tablet) 22:00 Complete Blood Count LAB 12/22/24 Verified 05:00 Basic Metabolic Panel LAB 12/22/24 Verified 05:00 Dietary Evaluation Review Comments: 1. Recommend adding CHO restriction 75 gm/meal to assist w/ glycemic control and still meet pt's caloric needs 2. Continue ss insulin as needed, consider addition of long-acting insulin 3. Continue frequent BG checks; goal >70, <180 mg/dl while inpatient 4. Given variable intakes, recommend Glucerna oral supplement 1x/day to enhance nutritional status (provides 220 kcal, 10 gm pro, 26 gm CHO) Expected Outcomes/Goals: Improved glycemic control, adequate nutrition, weight maintenance Date of Service: Dec 21, 2024 Billing Provider: BLAKE VICKERS MD Common Visit Codes: [id number] INP/OBS CARE (MOD) AMELIA HOOPER Dec 21, 2024 15:10
--- NOTE | 2024-12-21 15:53 | DVHPN2 ---
Progress Note Date Seen: Dec 21, 2024 Medical Necessity Reason Pt with a Central, PICC or Fol: Yes The following are medically ne: Link Catheter Objective vital signs Vital Sign Date Time Temp Pulse Resp B/P (MAP) Pulse Ox O2 Delivery O2 Flow Rate FiO2 12/21/24 13:07 148/91 12/21/24 13:00 98.1 78 18 98 98.1 12/21/24 08:00 Room Air* 0 21 Total Intake and Output 12/20/24 12/20/24 12/21/24 15:00 23:00 07:00 Intake Total 584 ml 400 ml Output Total 750 ml 550 ml Balance -166 ml -150 ml medications Current Medications Medications Dose Ordered Sig/Abilio Route Start Time Stop Time Status Last Admin Dose Admin Ondansetron HCl 4 mg Q4HP PRN IV 12/09/24 11:00 12/10/24 16:44 4 MG Docusate Sodium 100 mg BIDPRN PRN PO 12/09/24 11:00 12/13/24 10:22 100 MG Acetaminophen 650 mg Q6HP PRN PO 12/09/24 11:00 Nitroglycerin 0.4 mg Q5MINP PRN SL 12/09/24 11:00 Diagnostic Test (Pha) 1 strip ACHS 12/09/24 11:30 12/21/24 11:19 1 STRIP Insulin Human Regular ACHS SC 12/09/24 11:30 12/21/24 11:33 3 UNITS Dextrose 50 ml UD PRN IV 12/09/24 11:00 Atorvastatin Calcium 80 mg HS PO 12/09/24 22:00 12/20/24 21:37 80 MG Aspirin 81 mg DAILY PO 12/09/24 13:15 12/21/24 11:17 81 MG Pantoprazole Sodium 40 mg DAILY IV 12/11/24 10:00 12/21/24 11:17 40 MG Clonidine HCl 0.2 mg BID PO 12/11/24 16:45 12/21/24 11:19 0.2 MG Hydralazine HCl 10 mg Q6HP PRN IV 12/17/24 15:30 12/19/24 23:12 10 MG Nifedipine 30 mg DAILY PO 12/21/24 10:00 12/21/24 11:18 30 MG Hydralazine HCl 50 mg Q6HR PO 12/20/24 15:30 12/21/24 13:07 50 MG Insulin Glargine 15 units DAILY@1000 SC 12/21/24 10:00 12/21/24 11:28 15 UNITS Carvedilol 12.5 mg Q12HR PO 12/21/24 22:00 Examination: GENERAL:Normal, CVS:Abnormal, ABDOMEN:Normal laboratory and microbiology Laboratory Tests 12/21/24 06:23 Test 12/21/24 06:23 Range/Units Serum Glucose 191 #H 74-106 mg/dL Microbiology Date/Time Source Procedure Growth Status 12/12/24 15:15 Urine - Catheterized Urine Culture - Final Complete Problem List/Assessment/Plan Problem List/Assessment/Plan Acute kidney injury on Chronic kidney disease IIIb hemodynamic mediated in the setting of hypertensive urgency Hypertensive urgency secondary to noncompliance Acute CVA, left ICA stenosis Diabetes Obesity Proteinuria bladder mass-> bladder Diverticulum hydralazine, coreg, nifedipine Kidney ultrasound--bladder mass-urology consulted Blood Pressure control ARB -> cancel due to hyperkalemia and increased cr. change to hydralazine change diet to potassium restriction link pending transfer for [facility] renal function is stable , will sign off case Plan discussed with: Patient Dietary Evaluation Review Comments: 1. Recommend adding CHO restriction 75 gm/meal to assist w/ glycemic control and still meet pt's caloric needs 2. Continue ss insulin as needed, consider addition of long-acting insulin 3. Continue frequent BG checks; goal >70, <180 mg/dl while inpatient 4. Given variable intakes, recommend Glucerna oral supplement 1x/day to enhance nutritional status (provides 220 kcal, 10 gm pro, 26 gm CHO) Expected Outcomes/Goals: Improved glycemic control, adequate nutrition, weight maintenance XIANG HENAO MD Dec 21, 2024 15:53
[2024-12-21] MEDS: CARVEDILOL 12.5 MG TAB PO SCH (21:12)
[2024-12-22] VITALS (8 sets, daily range): BP systolic 134–154; BP diastolic 80–92; PULSE 71–93; RESP 16–20; TEMP 97.5–98.4; O2SAT 92–98
[2024-12-22 07:21] LABS: Basophils # (auto) 0 10 ^3/uL (0-0.2); Basophils % (auto) 0.6 % (0.0-2.0); Eosinophils # (auto) 0.1 10 ^3/uL (0-0.8); Eosinophils % (auto) 1.4 % (0.0-7.0); Hematocrit 36.8 % (41.0-53.0); Hemoglobin 11.9 g/dL (13.5-17.5); Lymphocytes # (auto) 1.5 10 ^3/uL (0.4-5.4); Lymphocytes % (auto) 30.7 % (10.0-50.0); Mean Corpuscular Hemoglobin 27.7 pg (28.0-32.0); Mean Corpuscular Hgb Conc. 32.2 g/dL (32.0-36.0); Mean Corpuscular Volume 86.1 fL (80.0-100.0); Monocytes # (auto) 0.6 10 ^3/uL (0-1.3); Monocytes % (auto) 12.1 % (0.0-12.0); Neutrophils # (auto) 2.8 10 ^3/uL (1.6-8.6); Neutrophils % (auto) 55.2 % (37.0-80.0); Nucleated Red Blood Cells % 0.2 %; Platelet Count (auto) 194 10^3/uL (140-450); Red Blood Cells 4.28 10^6/uL (4.5-5.90); Red Cell Distribution Width 17.1 % (11.8-14.3)
[2024-12-22 07:44] LABS: Anion Gap 9 (5-15); Calcium 9.2 mg/dL (8.7-10.4); Carbon Dioxide 22 mmol/L (20-31); Chloride 106 mmol/L (98-107); Potassium 3.9 mmol/L (3.5-5.1); Sodium 137 mmol/L (136-145)
[2024-12-22 07:50] LABS: BUN/Creatinine Ratio 9.2 (10.0-20.0); Blood Urea Nitrogen 14 mg/dL (9-23); Glucose 90 mg/dL (74-106)
--- NOTE | 2024-12-22 08:06 | DVHPN2 ---
Progress Note - Dictate Date Seen: Dec 22, 2024 Medical Necessity Reason Pt with a Central, PICC or Fol: Yes The following are medically ne: Gonzalez Catheter vital signs Vital Sign Date Time Temp Pulse Resp B/P (MAP) Pulse Ox O2 Delivery O2 Flow Rate FiO2 12/22/24 05:44 154/88 12/22/24 05:00 97.8 76 20 97 97.8 12/21/24 20:00 Room Air* 0 21 Total Intake and Output 12/21/24 12/21/24 12/22/24 15:00 23:00 07:00 Intake Total 455 ml 495 ml Output Total 575 ml 700 ml Balance -120 ml -205 ml medications Current Medications Medications Dose Ordered Sig/Abilio Route Start Time Stop Time Status Last Admin Dose Admin Ondansetron HCl 4 mg Q4HP PRN IV 12/09/24 11:00 12/10/24 16:44 4 MG Docusate Sodium 100 mg BIDPRN PRN PO 12/09/24 11:00 12/13/24 10:22 100 MG Acetaminophen 650 mg Q6HP PRN PO 12/09/24 11:00 Nitroglycerin 0.4 mg Q5MINP PRN SL 12/09/24 11:00 Diagnostic Test (Pha) 1 strip ACHS 12/09/24 11:30 12/22/24 06:05 1 STRIP Insulin Human Regular ACHS SC 12/09/24 11:30 12/21/24 22:17 6 UNITS Dextrose 50 ml UD PRN IV 12/09/24 11:00 Atorvastatin Calcium 80 mg HS PO 12/09/24 22:00 12/21/24 21:11 80 MG Aspirin 81 mg DAILY PO 12/09/24 13:15 12/21/24 11:17 81 MG Pantoprazole Sodium 40 mg DAILY IV 12/11/24 10:00 12/21/24 11:17 40 MG Clonidine HCl 0.2 mg BID PO 12/11/24 16:45 12/21/24 21:12 0.2 MG Hydralazine HCl 10 mg Q6HP PRN IV 12/17/24 15:30 12/19/24 23:12 10 MG Nifedipine 30 mg DAILY PO 12/21/24 10:00 12/21/24 11:18 30 MG Hydralazine HCl 50 mg Q6HR PO 12/20/24 15:30 3/3/25 05:44 50 MG Insulin Glargine 15 units DAILY@1000 SC 12/21/24 10:00 12/21/24 11:28 15 UNITS Carvedilol 12.5 mg Q12HR PO 12/21/24 22:00 12/21/24 21:12 12.5 MG Insulin Glargine 5 units HS SC 12/21/24 22:00 12/21/24 22:18 5 UNITS laboratory and microbiology Laboratory Tests 12/22/24 06:38 Test 12/22/24 06:38 Range/Units Serum Glucose 90 # 74-106 mg/dL Assessment/Plan Patient is a 69-year-old gentleman who presented to the hospital for worsening bilateral lower extremity weakness and swelling. He did have some headaches. He mentions that he has not been able to walk for the past 2 days. It is of note that the patient did have a CVA back in August 2024. Since that time he was able to walk with cane but for the past 2 days he is unable to. Cardiology was involved for cardiac aspects of care. He denies chest pains. He denies shortness of breath. He denies loss of consciousness. He denies dizziness. Morbidly obese. Not in acute distress. Not using accessory muscles of breathing. No JVD. Speaks slowly. Mucosa is pink and wet. No goiter. No carotid bruit. Lungs are clear to auscultation. Cardiac: Regular, no thrill/gallop. Abdomen is soft. There is no gross mass. Bowel sound is positive. Dorsalis pedis is 2+ bilateral Past medical history includes hypertension, diabetes mellitus, morbid obesity, history of CVA, CKD, old history of GI bleeding anemia, GERD, hyperlipidemia, hiatal hernia and old history of hepatitis-C. Does have history of smoking. Denies alcohol and drug abuse. Family history is positive for hypertension/CVA and heart murmur Echocardiogram of August 03, 2023 had reported mild concentric left ventricular hypertrophy, aortic sclerosis, ejection fraction of 65-70% and no vegetation Echocardiogram of August 2024 revealed ejection fraction of 60-65% Troponin (high sensitive): 3 LDL: 203 CT of the head reported: IMPRESSION: 1. No acute intracranial process. 2. Moderate chronic microvascular ischemic changes. Repeat CT of head reported: IMPRESSION: 1. Generalized brain atrophy. 2. Small vessel ischemic/degenerative changes. 3. No acute intracranial hemorrhage, midline shift or mass effect. If symptoms persist, further evaluation with MRI is recommended. MRI of the brain revealed: IMPRESSION: 1. Small foci of acute ischemia in the right thalamus and left parietal cortex. No intracranial hemorrhage. 2. Extensive chronic microvascular ischemic changes, advanced for patient's age. Repeat MRI of brain reported: IMPRESSION: 1. Acute infarcts in the right prasad radiata , left parietal subcortical region, posteromedial left temporal lobe. Given the bilaterality, correlate for thromboembolic, vasospastic etiology 2. Moderate to advanced chronic microvascular ischemic changes. 3. Mild global cerebral volume loss. MRI/MRA of the brain reported: IMPRESSION: 1. High-grade stenosis in the left intracranial ICA. 2. Short-segment occlusion of distal M2 segment of the left MCA. 3. Short-segment moderate stenosis of the proximal A2 segment of the left GILMA. 4. Short-segment occlusion of A3 segment of the right GILMA. 5. Moderate stenosis of the proximal basilar artery. 6. Hypoplastic right vertebral artery short-segment foci of high-grade stenosis and occlusion of the V3 segment. Critical Result: Large vessel occlusion Chest xry reported: IMPRESSION: No evidence of acute disease in the chest. Renal ultrasound revealed: FINDINGS: The right kidney measures 10 cm in length, which is normal in size. There is normal echogenicity of the right kidney. No hydronephrosis. The left kidney measures 10 cm in length, which is normal in size. There is normal echogenicity of the left kidney. No hydronephrosis. Bladder mass measuring 7.3 cm. IMPRESSION: Possible hyperechoic bladder mass. Cystoscopy recommended Cystogram reported; IMPRESSION: A large bladder diverticulum is seen at the bladder dome with an additional smaller diverticulum seen just laterally. EKG reveals sinus rhythm with no specific ST-T changes. Tele reveals sinus rhythm Echocardiogram reported: Left ventricle: Concentric left ventricular hypertrophy was seen. LVEF was 60-65%. There was no gross wall motion abnormality. Right ventricle was normal sized with normal systolic function. Left atrium was dilated. Right atrium was normal sized. Aortic valve: Aortic valve was trileaflet. There was no aortic insufficiency/stenosis. There was trivial mitral regurgitation. There was no tricuspid regurgitation. There was no pulmonary valve insufficiency. There was no pericardial effusion. As there was no good tricuspid regurgitation jet, right ventricular systolic pressure could not be estimated. There was no echocardiographic evidence for pulmonary hypertension. IVC was normal sized with normal respiratory variation. CLAUDY did not reveal any Cardiac source for Emboli Patient is a 69-year-old gentleman who presented with lower extremity weakness. Imaging/CT/MRI has revealed CVA. Acute coronary syndrome is not considered at this point. Cardiac etiology for presentation is less likely. CVA, acute Morbid obesity Diabetes mellitus Hypertension Hiatal hernia GI bleeding, history of CKD Kidney mass s/p cystoscopy Bladder Diverticulum Cardiac suggestion for management: Manage on telemetry Follow-up electrolytes and kidney function tests and correct abnormalities Aspirin daily High potency statin Management / goal of blood pressure as per Neurology Status post CLAUDY revealing no cardiac source of emboli observed Neurology follow up (suggested for transferring to higher level of care) Cardiac miranda, stable Further evaluation and management depends on the above and clinical course A total of 55 minutes was spent reviewing the patient record, examining the patient, making a diagnostic and therapeutic plan, discussing this plan with medical personnel, following up on diagnostic studies and following the patient for clinical stability excluding any and all procedures. At least 50% of this time was spent in direct, [id number] contact. Thank you for allowing me to participate in this patient's care. Further recommendations will depend on patient's clinical course. Please do not hesitate to contact me if you have any questions or concerns. This medical document was created using electronic medical record system with [employer] computerized dictation system. Although this document has been carefully reviewed, there may still be some phonetic and typographical errors. These areas are purely typographical due to the imperfection of the software programs, and do not reflect any compromise in the patient's medical care. Dietary Evaluation Review Comments: 1. Recommend adding CHO restriction 75 gm/meal to assist w/ glycemic control and still meet pt's caloric needs 2. Continue ss insulin as needed, consider addition of long-acting insulin 3. Continue frequent BG checks; goal >70, <180 mg/dl while inpatient 4. Given variable intakes, recommend Glucerna oral supplement 1x/day to enhance nutritional status (provides 220 kcal, 10 gm pro, 26 gm CHO) Expected Outcomes/Goals: Improved glycemic control, adequate nutrition, weight maintenance Plan discussed with: Patient, Other (nurse) NEVAEH FALCON MD Dec 22, 2024 08:06
--- NOTE | 2024-12-22 11:08 | DVHPN2 ---
Progress Note - Dictate Medical Necessity Reason Pt with a Central, PICC or Fol: Yes The following are medically ne: Gonzalez Catheter vital signs Vital Sign Date Time Temp Pulse Resp B/P (MAP) Pulse Ox O2 Delivery O2 Flow Rate FiO2 12/22/24 10:15 151/92 12/22/24 10:14 88 12/22/24 08:00 Room Air* 0 21 12/22/24 05:00 97.8 20 97 97.8 Total Intake and Output 12/21/24 12/21/24 12/22/24 15:00 23:00 07:00 Intake Total 455 ml 495 ml Output Total 575 ml 700 ml Balance -120 ml -205 ml medications Current Medications Medications Dose Ordered Sig/Abilio Route Start Time Stop Time Status Last Admin Dose Admin Ondansetron HCl 4 mg Q4HP PRN IV 12/09/24 11:00 12/10/24 16:44 4 MG Docusate Sodium 100 mg BIDPRN PRN PO 12/09/24 11:00 12/13/24 10:22 100 MG Acetaminophen 650 mg Q6HP PRN PO 12/09/24 11:00 Nitroglycerin 0.4 mg Q5MINP PRN SL 12/09/24 11:00 Diagnostic Test (Pha) 1 strip ACHS 12/09/24 11:30 12/22/24 06:05 1 STRIP Insulin Human Regular ACHS SC 12/09/24 11:30 12/21/24 22:17 6 UNITS Dextrose 50 ml UD PRN IV 12/09/24 11:00 Atorvastatin Calcium 80 mg HS PO 12/09/24 22:00 12/21/24 21:11 80 MG Aspirin 81 mg DAILY PO 12/09/24 13:15 12/22/24 10:15 81 MG Pantoprazole Sodium 40 mg DAILY IV 12/11/24 10:00 12/22/24 10:15 40 MG Clonidine HCl 0.2 mg BID PO 12/11/24 16:45 12/22/24 10:15 0.2 MG Hydralazine HCl 10 mg Q6HP PRN IV 12/17/24 15:30 12/19/24 23:12 10 MG Hydralazine HCl 50 mg Q6HR PO 12/20/24 15:30 12/22/24 05:44 50 MG Insulin Glargine 15 units DAILY@1000 SC 12/21/24 10:00 12/22/24 10:21 15 UNITS Carvedilol 12.5 mg Q12HR PO 12/21/24 22:00 12/22/24 10:14 12.5 MG Insulin Glargine 5 units HS SC 12/21/24 22:00 12/21/24 22:18 5 UNITS Nifedipine 60 mg DAILY PO 12/23/24 10:00 UNV objective General Appearance: alert, no distress HEENT: EOMI, PERRLA, normal external inspect of ears, no icterus, no nasal drainage Neck: no carotid bruit, no jugular venous distention (JVD), no lymphadenopathy Chest: normal thorax Respiratory: clear to auscultation, normal air movement Cardiovascular: regular rate and rhythm, no diastolic murmur, no jugular venous distention (JVD), no rub, no systolic murmur Abdominal: soft, no hepatomegaly, no mass, no splenomegaly, no tenderness Musculoskeletal: no joint tenderness, no swelling Extremities: normal pulses, no calf tenderness, no clubbing, no cyanosis, no edema Skin: no bruising, no jaundice, no rash Neurological: alert, No focal deficit laboratory and microbiology Laboratory Tests 12/22/24 06:38 Test 12/22/24 06:38 Range/Units Serum Glucose 90 # 74-106 mg/dL Problem List 1. Hypertensive urgency Cardiology conult 2. Bilateral lower extremity weakness Medication, monitoring 3. Obesity Diet education, monitor 4. DM II w/ hyperglycemia Insulin Sliding Scale 5. HLD Medication, monitoring 6. GERD Medication, monitoring 7. CVA with residual defects Neurology consult 8. CKD 3B Medication, monitoring 9. Acute CVA MRI of Brain Assessment/Plan Subjective Patient appears to be alert and oriented. Objective Patient has had 2 CVAs while hospitalized. Patient has a left ICA stenosis. I did discuss plan of care with patient and patient's Melida extensively as well as social work faculty member. I also spoke with neurology. Patient has a left ICA stenosis most likely attributing to recurrent CVA. Patient has a stable CKD stage IIIb. Patient has diabetes type 2 with hyperglycemia currently controlled with insulin sliding scale. Melida is concerned that patient may not be a candidate for any type of vascular surgery. Patient originally declined higher level of care but now he is requesting transfer. Per social work faculty member several major hospitals has declined at this time. Patient also was seen for by urology for bladder mass. Patient is status post cystoscopy. Urethral stricture was noted. Gonzalez catheter was placed. Patient will need additional cystoscopy outpatient. Gonzalez catheter to remain in place. Per Melida they are now unsure if whether or not patient should be transferred to higher level of care. She will discuss with her family and patient. Patient appears to be alert and oriented and can currently make his decisions at this time. I also again discussed plan of care with my attending physician Dr. Phillips. Plan Continue current medications as recommended by neurology. Vascular surgery consult for left ICA stenosis. fitness services manager consult to transfer for higher level of care for left ICA stenosis large vessel occlusion. Dietary Evaluation Review Comments: 1. Recommend adding CHO restriction 75 gm/meal to assist w/ glycemic control and still meet pt's caloric needs 2. Continue ss insulin as needed, consider addition of long-acting insulin 3. Continue frequent BG checks; goal >70, <180 mg/dl while inpatient 4. Given variable intakes, recommend Glucerna oral supplement 1x/day to enhance nutritional status (provides 220 kcal, 10 gm pro, 26 gm CHO) Expected Outcomes/Goals: Improved glycemic control, adequate nutrition, weight maintenance VITOR SCHULTZ NP Dec 22, 2024 11:08
--- NOTE | 2024-12-22 17:38 | DVHDS2 ---
Discharge Summary Date of Admission Dec 09, 2024 at 10:58 Date of Discharge: Dec 22, 2024 Labs/Diagnostic Data: Laboratory Results Test 12/22/24 16:26 12/22/24 06:38 12/21/24 06:23 12/20/24 08:53 POC Glucose 275 mg/dl (70-106) White Blood Count 5.0 10^3/uL (4.4-10.8) Red Blood Count 4.28 10^6/uL (4.5-5.90) Hemoglobin 11.9 g/dL (13.5-17.5) Hematocrit 36.8 % (41.0-53.0) Mean Corpuscular Volume 86.1 fL (80.0-100.0) Mean Corpuscular Hemoglobin 27.7 pg (28.0-32.0) Mean Corpuscular Hemoglobin Concent 32.2 g/dL (32.0-36.0) Red Cell Distribution Width 17.1 % (11.8-14.3) Platelet Count 194 10^3/uL (140-450) Mean Platelet Volume 8.6 fL (6.9-10.8) Neutrophils (%) (Auto) 55.2 % (37.0-80.0) Lymphocytes (%) (Auto) 30.7 % (10.0-50.0) Monocytes (%) (Auto) 12.1 % (0.0-12.0) Eosinophils (%) (Auto) 1.4 % (0.0-7.0) Basophils (%) (Auto) 0.6 % (0.0-2.0) Neutrophils # (Auto) 2.8 10 ^3/uL (1.6-8.6) Lymphocytes # (Auto) 1.5 10 ^3/uL (0.4-5.4) Monocytes # (Auto) 0.6 10 ^3/uL (0-1.3) Eosinophils # (Auto) 0.1 10 ^3/uL (0-0.8) Basophils # (Auto) 0 10 ^3/uL (0-0.2) Nucleated Red Blood Cells 0.2 % Sodium Level 137 mmol/L (136-145) Potassium Level 3.9 mmol/L (3.5-5.1) Chloride Level 106 mmol/L (98-107) Carbon Dioxide Level 22 mmol/L (20-31) Anion Gap 9 (5-15) Blood Urea Nitrogen 14 mg/dL (9-23) Creatinine 1.52 mg/dL (0.700-1.30) Glomerular Filtration Rate Calc 50 mL/min (>90) BUN/Creatinine Ratio 9.2 (10.0-20.0) Serum Glucose 90 mg/dL (74-106) Calcium Level 9.2 mg/dL (8.7-10.4) Magnesium Level 1.7 mg/dL (1.6-2.6) Total Bilirubin 0.3 mg/dL (0.2-1.0) Aspartate Amino Transferase (AST) 23 U/L (13-40) Alanine Aminotransferase (ALT) 13 U/L (7-40) Alkaline Phosphatase 90 U/L (46-116) Total Protein 6.8 g/dL (5.7-8.2) Albumin 3.9 g/dL (3.2-4.8) Test 12/12/24 13:28 12/09/24 18:36 12/09/24 10:28 12/09/24 09:28 Prothrombin Time 11.1 sec (9.3-11.8) Prothrombin Time INR 1.05 (0.9-1.15) Activated Partial Thromboplast Time 24.5 SEC (24.5-34.5) Urine Color Light-orange (Yellow) Urine Clarity Turbid (Clear) Urine pH 6.5 (5.0-9.0) Urine Specific [place] 1.019 (1.001-1.035) Urine Protein 3+ (Negative) Urine Ketones Negative (Negative) Urine Blood 1+ /uL (Negative) Urine Nitrite Negative (Negative) Urine Bilirubin Negative (Negative) Urine Urobilinogen Normal mg/dL (Negative) Urine Leukocyte Esterase 3+ /uL (Negative) Urine RBC 5 /hpf (0 - 3) Urine WBC Clumps Present /hpf (None Seen) Urine Microscopic WBC 314 /HPF (0-3) Urine Squamous Epithelial Cells Few /hpf (<5) Urine Bacteria None seen /hpf (None Seen) Urine Glucose 3+ mg/dL (Normal) Hemoglobin A1c 7.6 % A1C (<5.7) Troponin I High Sensitivity 3 ng/L (</=54) Triglycerides Level 172 mg/dL (< 150) Cholesterol Level 277 mg/dL (< 200) LDL Cholesterol 203 mg/dL (< 100) HDL Cholesterol 46 mg/dL (40-59) Other Laboratory Tests 12/22/24 06:38 Brief Hx & Hospital Course: Patient was admitted on December 09, 2024 for generalized weakness and stroke like symptoms. Patient was seen by cardiology as well as neurology. MRI on December 09 showed an acute CVA. Patient has left ICA stenosis. Imaging also showed possible bladder mass. Cystogram showed bladder diverticulum. Patient had a cystoscopy by Dr. Burak Taylor, which showed urethral stenosis. Link catheter to remain in place. Patient will follow up with urology outpatient for further work up. Patient had signs of aphasia after procedure. Repeat MRI on December 13 showed a recurrent CVA most likely from left ICA stenosis. Patient is status post CLAUDY no cardiac emboli was found. Patients last echocardiogram showed an ejection fraction of 60 to 65%. Patients mentation and speech has significantly improved. Due to large vessel, occlusion and stenosis of left ICA neurology has requested higher level of care transfer for treatment. Patient was also seen and evaluated by Jen due to a history of a G.I. bleed Elodia.I. did OK for anticoagulation current medications for CVA include aspirin 81 mg daily, Lipitor 80 mg daily, 60 mg daily, and Keurig 12.5 mg twice a day. Patient is on Protonix 40 mg daily . Hemoglobin has remained stable with no active signs or symptoms of bleeding. Patient to be transferred to [facility] for further work up and treatment. The patient received proper medical treatment and medications. Vital signs, Imaging and Laboratory Work was monitored daily. All consults recommendations were followed as provided. There were no complaints or new complaints upon discharge, all questions and concerns were answered. Patient was advised to return to the ER or call 911 if any headaches, dizziness, shortness of breath, chest pain, bleeding, fevers, or worsening of medical condition. Patient/Family was counseled about treatment plan, medications, possible side effects, patient verbalized understanding. All questions were answered to the best of my ability. The patient symptoms improved and they are okay to be DC. 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 Discharge Statement: "Patient was advised to return to the ER or call 911 if any headaches, dizziness, shortness of breath, chest pain, abdominal pain, bleeding, fevers, or worsening of medical condition. Patient was counseled about treatment plan, medications, possible side effects, patientverbalized understanding. All questions were answered to the best of my ability. This discharge took greater then 30 minutes in planning, reviewing documentation, counseling the patient, and discussing with other team members." ASSESSMENT ASSESSMENT Assessment Acute CVA Left ICA stenosis Hypertensive urgency Bladder mass-bladder diverticulum Urethral stenosis- link catheter in place VITOR SCHULTZ NP Dec 22, 2024 17:38
[2024-12-23] VITALS (8 sets, daily range): BP systolic 134–159; BP diastolic 80–93; PULSE 73–92; RESP 16–20; TEMP 97.7–98.6; O2SAT 94–96
--- NOTE | 2024-12-23 07:39 | DVHPN2 ---
Progress Note - Dictate Date Seen: Dec 23, 2024 Medical Necessity Reason Pt with a Central, PICC or Fol: Yes The following are medically ne: Gonzalez Catheter vital signs Vital Sign Date Time Temp Pulse Resp B/P (MAP) Pulse Ox O2 Delivery O2 Flow Rate FiO2 12/23/24 05:37 134/81 12/23/24 05:00 97.9 73 18 96 97.9 12/22/24 20:00 Room Air* 0 21 Total Intake and Output 12/22/24 12/22/24 12/23/24 15:00 23:00 07:00 Intake Total 1100 ml 600 ml Output Total 400 ml 100 ml 550 ml Balance -400 ml 1000 ml 50 ml medications Current Medications Medications Dose Ordered Sig/Abilio Route Start Time Stop Time Status Last Admin Dose Admin Ondansetron HCl 4 mg Q4HP PRN IV 12/09/24 11:00 12/10/24 16:44 4 MG Docusate Sodium 100 mg BIDPRN PRN PO 12/09/24 11:00 12/13/24 10:22 100 MG Acetaminophen 650 mg Q6HP PRN PO 12/09/24 11:00 Nitroglycerin 0.4 mg Q5MINP PRN SL 12/09/24 11:00 Diagnostic Test (Pha) 1 strip ACHS 12/09/24 11:30 12/23/24 06:34 1 STRIP Insulin Human Regular ACHS SC 12/09/24 11:30 12/22/24 21:52 6 UNITS Dextrose 50 ml UD PRN IV 12/09/24 11:00 Atorvastatin Calcium 80 mg HS PO 12/09/24 22:00 12/22/24 21:36 80 MG Aspirin 81 mg DAILY PO 12/09/24 13:15 12/22/24 10:15 81 MG Pantoprazole Sodium 40 mg DAILY IV 12/11/24 10:00 12/22/24 10:15 40 MG Clonidine HCl 0.2 mg BID PO 12/11/24 16:45 12/22/24 21:38 0.2 MG Hydralazine HCl 10 mg Q6HP PRN IV 12/17/24 15:30 12/19/24 23:12 10 MG Hydralazine HCl 50 mg Q6HR PO 12/20/24 15:30 12/23/24 05:37 50 MG Insulin Glargine 15 units DAILY@1000 SC 12/21/24 10:00 12/22/24 10:21 15 UNITS Carvedilol 12.5 mg Q12HR PO 12/21/24 22:00 12/22/24 21:37 12.5 MG Insulin Glargine 5 units HS SC 12/21/24 22:00 12/22/24 21:52 5 UNITS Nifedipine 60 mg DAILY PO 12/23/24 10:00 laboratory and microbiology Laboratory Tests 12/22/24 06:38 Test 12/22/24 06:38 Range/Units Serum Glucose 90 # 74-106 mg/dL Assessment/Plan Patient is a 69-year-old gentleman who presented to the hospital for worsening bilateral lower extremity weakness and swelling. He did have some headaches. He mentions that he has not been able to walk for the past 2 days. It is of note that the patient did have a CVA back in August 2024. Since that time he was able to walk with cane but for the past 2 days he is unable to. Cardiology was involved for cardiac aspects of care. He denies chest pains. He denies shortness of breath. He denies loss of consciousness. He denies dizziness. Morbidly obese. Not in acute distress. Not using accessory muscles of breathing. No JVD. Speaks slowly. Mucosa is pink and wet. No goiter. No carotid bruit. Lungs are clear to auscultation. Cardiac: Regular, no thrill/gallop. Abdomen is soft. There is no gross mass. Bowel sound is positive. Dorsalis pedis is 2+ bilateral Past medical history includes hypertension, diabetes mellitus, morbid obesity, history of CVA, CKD, old history of GI bleeding anemia, GERD, hyperlipidemia, hiatal hernia and old history of hepatitis-C. Does have history of smoking. Denies alcohol and drug abuse. Family history is positive for hypertension/CVA and heart murmur Echocardiogram of August 03, 2023 had reported mild concentric left ventricular hypertrophy, aortic sclerosis, ejection fraction of 65-70% and no vegetation Echocardiogram of August 2024 revealed ejection fraction of 60-65% Troponin (high sensitive): 3 LDL: 203 CT of the head reported: IMPRESSION: 1. No acute intracranial process. 2. Moderate chronic microvascular ischemic changes. Repeat CT of head reported: IMPRESSION: 1. Generalized brain atrophy. 2. Small vessel ischemic/degenerative changes. 3. No acute intracranial hemorrhage, midline shift or mass effect. If symptoms persist, further evaluation with MRI is recommended. MRI of the brain revealed: IMPRESSION: 1. Small foci of acute ischemia in the right thalamus and left parietal cortex. No intracranial hemorrhage. 2. Extensive chronic microvascular ischemic changes, advanced for patient's age. Repeat MRI of brain reported: IMPRESSION: 1. Acute infarcts in the right prasad radiata , left parietal subcortical region, posteromedial left temporal lobe. Given the bilaterality, correlate for thromboembolic, vasospastic etiology 2. Moderate to advanced chronic microvascular ischemic changes. 3. Mild global cerebral volume loss. MRI/MRA of the brain reported: IMPRESSION: 1. High-grade stenosis in the left intracranial ICA. 2. Short-segment occlusion of distal M2 segment of the left MCA. 3. Short-segment moderate stenosis of the proximal A2 segment of the left GILMA. 4. Short-segment occlusion of A3 segment of the right GILMA. 5. Moderate stenosis of the proximal basilar artery. 6. Hypoplastic right vertebral artery short-segment foci of high-grade stenosis and occlusion of the V3 segment. Critical Result: Large vessel occlusion Chest xry reported: IMPRESSION: No evidence of acute disease in the chest. Renal ultrasound revealed: FINDINGS: The right kidney measures 10 cm in length, which is normal in size. There is normal echogenicity of the right kidney. No hydronephrosis. The left kidney measures 10 cm in length, which is normal in size. There is normal echogenicity of the left kidney. No hydronephrosis. Bladder mass measuring 7.3 cm. IMPRESSION: Possible hyperechoic bladder mass. Cystoscopy recommended Cystogram reported; IMPRESSION: A large bladder diverticulum is seen at the bladder dome with an additional smaller diverticulum seen just laterally. EKG reveals sinus rhythm with no specific ST-T changes. Tele reveals sinus rhythm Echocardiogram reported: Left ventricle: Concentric left ventricular hypertrophy was seen. LVEF was 60-65%. There was no gross wall motion abnormality. Right ventricle was normal sized with normal systolic function. Left atrium was dilated. Right atrium was normal sized. Aortic valve: Aortic valve was trileaflet. There was no aortic insufficiency/stenosis. There was trivial mitral regurgitation. There was no tricuspid regurgitation. There was no pulmonary valve insufficiency. There was no pericardial effusion. As there was no good tricuspid regurgitation jet, right ventricular systolic pressure could not be estimated. There was no echocardiographic evidence for pulmonary hypertension. IVC was normal sized with normal respiratory variation. CLAUDY did not reveal any Cardiac source for Emboli Patient is a 69-year-old gentleman who presented with lower extremity weakness. Imaging/CT/MRI has revealed CVA. Acute coronary syndrome is not considered at this point. Cardiac etiology for presentation is less likely. CVA, acute Morbid obesity Diabetes mellitus Hypertension Hiatal hernia GI bleeding, history of CKD Kidney mass s/p cystoscopy Bladder Diverticulum Cardiac suggestion for management: Manage on telemetry Follow-up electrolytes and kidney function tests and correct abnormalities Aspirin daily High potency statin Management / goal of blood pressure as per Neurology Status post CLAUDY revealing no cardiac source of emboli observed Neurology follow up (suggested for transferring to higher level of care) Cardiac miranda, stable Further evaluation and management depends on the above and clinical course A total of 55 minutes was spent reviewing the patient record, examining the patient, making a diagnostic and therapeutic plan, discussing this plan with medical personnel, following up on diagnostic studies and following the patient for clinical stability excluding any and all procedures. At least 50% of this time was spent in direct, [id number] contact. Thank you for allowing me to participate in this patient's care. Further recommendations will depend on patient's clinical course. Please do not hesitate to contact me if you have any questions or concerns. This medical document was created using electronic medical record system with [employer] computerized dictation system. Although this document has been carefully reviewed, there may still be some phonetic and typographical errors. These areas are purely typographical due to the imperfection of the software programs, and do not reflect any compromise in the patient's medical care. Dietary Evaluation Review Comments: 1. Recommend adding CHO restriction 75 gm/meal to assist w/ glycemic control and still meet pt's caloric needs 2. Continue ss insulin as needed, consider addition of long-acting insulin 3. Continue frequent BG checks; goal >70, <180 mg/dl while inpatient 4. Given variable intakes, recommend Glucerna oral supplement 1x/day to enhance nutritional status (provides 220 kcal, 10 gm pro, 26 gm CHO) Expected Outcomes/Goals: Improved glycemic control, adequate nutrition, weight maintenance Plan discussed with: Patient, Other (nurse) NEVAEH FALCON MD Dec 23, 2024 07:39
[2024-12-23 08:42] LABS: Chloride 107 mmol/L (98-107); Sodium 140 mmol/L (136-145)
[2024-12-23 08:43] LABS: Anion Gap 7 (5-15); Calcium 9.1 mg/dL (8.7-10.4); Carbon Dioxide 26 mmol/L (20-31)
[2024-12-23 08:44] LABS: Basophils # (auto) 0 10 ^3/uL (0-0.2); Basophils % (auto) 0.7 % (0.0-2.0); Eosinophils # (auto) 0.1 10 ^3/uL (0-0.8); Eosinophils % (auto) 1.2 % (0.0-7.0); Hematocrit 37.2 % (41.0-53.0); Hemoglobin 12.2 g/dL (13.5-17.5); Lymphocytes # (auto) 1.9 10 ^3/uL (0.4-5.4); Lymphocytes % (auto) 38.1 % (10.0-50.0); Mean Corpuscular Hemoglobin 28.2 pg (28.0-32.0); Mean Corpuscular Hgb Conc. 32.9 g/dL (32.0-36.0); Mean Corpuscular Volume 85.7 fL (80.0-100.0); Monocytes # (auto) 0.5 10 ^3/uL (0-1.3); Monocytes % (auto) 10.4 % (0.0-12.0); Neutrophils # (auto) 2.4 10 ^3/uL (1.6-8.6); Neutrophils % (auto) 49.6 % (37.0-80.0); Nucleated Red Blood Cells % 0.1 %; Platelet Count (auto) 243 10^3/uL (140-450); Red Blood Cells 4.34 10^6/uL (4.5-5.90); Red Cell Distribution Width 16.9 % (11.8-14.3); White Blood Cell 4.9 10^3/uL (4.4-10.8)
[2024-12-23 08:48] LABS: BUN/Creatinine Ratio 10.8 (10.0-20.0); Blood Urea Nitrogen 17 mg/dL (9-23); Glucose 81 mg/dL (74-106)
[2024-12-23 08:49] LABS: Magnesium 1.9 mg/dL (1.6-2.6)
[2024-12-23] MEDS: NIFEdipine ER 30 MG TAB PO SCH (09:48)
--- NOTE | 2024-12-23 11:08 | DVHDS2 ---
Discharge Summary Date of Admission Dec 09, 2024 at 10:58 Date of Discharge: Dec 22, 2024 Labs/Diagnostic Data: Laboratory Results Test 12/23/24 09:45 12/23/24 07:52 12/20/24 08:53 12/12/24 13:28 POC Glucose 269 mg/dl (70-106) White Blood Count 4.9 10^3/uL (4.4-10.8) Red Blood Count 4.34 10^6/uL (4.5-5.90) Hemoglobin 12.2 g/dL (13.5-17.5) Hematocrit 37.2 % (41.0-53.0) Mean Corpuscular Volume 85.7 fL (80.0-100.0) Mean Corpuscular Hemoglobin 28.2 pg (28.0-32.0) Mean Corpuscular Hemoglobin Concent 32.9 g/dL (32.0-36.0) Red Cell Distribution Width 16.9 % (11.8-14.3) Platelet Count 243 10^3/uL (140-450) Mean Platelet Volume 8.8 fL (6.9-10.8) Neutrophils (%) (Auto) 49.6 % (37.0-80.0) Lymphocytes (%) (Auto) 38.1 % (10.0-50.0) Monocytes (%) (Auto) 10.4 % (0.0-12.0) Eosinophils (%) (Auto) 1.2 % (0.0-7.0) Basophils (%) (Auto) 0.7 % (0.0-2.0) Neutrophils # (Auto) 2.4 10 ^3/uL (1.6-8.6) Lymphocytes # (Auto) 1.9 10 ^3/uL (0.4-5.4) Monocytes # (Auto) 0.5 10 ^3/uL (0-1.3) Eosinophils # (Auto) 0.1 10 ^3/uL (0-0.8) Basophils # (Auto) 0 10 ^3/uL (0-0.2) Nucleated Red Blood Cells 0.1 % Sodium Level 140 mmol/L (136-145) Potassium Level 4.0 mmol/L (3.5-5.1) Chloride Level 107 mmol/L (98-107) Carbon Dioxide Level 26 mmol/L (20-31) Anion Gap 7 (5-15) Blood Urea Nitrogen 17 mg/dL (9-23) Creatinine 1.57 mg/dL (0.700-1.30) Glomerular Filtration Rate Calc 48 mL/min (>90) BUN/Creatinine Ratio 10.8 (10.0-20.0) Serum Glucose 81 mg/dL (74-106) Calcium Level 9.1 mg/dL (8.7-10.4) Magnesium Level 1.9 mg/dL (1.6-2.6) Total Bilirubin 0.3 mg/dL (0.2-1.0) Aspartate Amino Transferase (AST) 23 U/L (13-40) Alanine Aminotransferase (ALT) 13 U/L (7-40) Alkaline Phosphatase 90 U/L (46-116) Total Protein 6.8 g/dL (5.7-8.2) Albumin 3.9 g/dL (3.2-4.8) Prothrombin Time 11.1 sec (9.3-11.8) Prothrombin Time INR 1.05 (0.9-1.15) Activated Partial Thromboplast Time 24.5 SEC (24.5-34.5) Test 12/09/24 18:36 12/09/24 10:28 12/09/24 09:28 Urine Color Light-orange (Yellow) Urine Clarity Turbid (Clear) Urine pH 6.5 (5.0-9.0) Urine Specific [place] 1.019 (1.001-1.035) Urine Protein 3+ (Negative) Urine Ketones Negative (Negative) Urine Blood 1+ /uL (Negative) Urine Nitrite Negative (Negative) Urine Bilirubin Negative (Negative) Urine Urobilinogen Normal mg/dL (Negative) Urine Leukocyte Esterase 3+ /uL (Negative) Urine RBC 5 /hpf (0 - 3) Urine WBC Clumps Present /hpf (None Seen) Urine Microscopic WBC 314 /HPF (0-3) Urine Squamous Epithelial Cells Few /hpf (<5) Urine Bacteria None seen /hpf (None Seen) Urine Glucose 3+ mg/dL (Normal) Hemoglobin A1c 7.6 % A1C (<5.7) Troponin I High Sensitivity 3 ng/L (</=54) Triglycerides Level 172 mg/dL (< 150) Cholesterol Level 277 mg/dL (< 200) LDL Cholesterol 203 mg/dL (< 100) HDL Cholesterol 46 mg/dL (40-59) Other Laboratory Tests 12/23/24 07:52 Brief Hx & Hospital Course: Patient is a 69 year old male presenting to the ED with a chief complaint of bilateral lower extremity weakness. Patient states that he is unable to walk on his own x 1 day because of the weakness. Patient reports also having a headache. Patient states that he previously had a stroke last August with left-sided deficits. Patient was still able to walk on his own with the aid of a cane. Patient denies any SOB, dizziness, slurred speech, or numbness. While in the emergency department the patient was evaluated by the provider, Labs, vital signs, and imagining monitored. Patient was admitted on December 09, 2024 for generalized weakness and stroke like symptoms. Patient was seen by cardiology as well as neurology. MRI on December 09 showed an acute CVA. Patient has left ICA stenosis. Imaging also showed possible bladder mass. Cystogram showed bladder diverticulum. Patient had a cystoscopy by Dr. Burak Taylor, which showed urethral stenosis. Link catheter to remain in place. Patient will follow up with urology outpatient for further work up. Patient had signs of aphasia after procedure. Repeat MRI on December 13 showed a recurrent CVA most likely from left ICA stenosis. Patient is status post CLAUDY no cardiac emboli was found. Patients last echocardiogram showed an ejection fraction of 60 to 65%. Patients mentation and speech has significantly improved. Due to large vessel, occlusion and stenosis of left ICA neurology has requested higher level of care transfer for treatment. Patient was also seen and evaluated by Jen due to a history of a G.I. bleed Elodia.Michelle. did OK for anticoagulation current medications for CVA include aspirin 81 mg daily, Lipitor 80 mg daily, 60 mg daily, and Keurig 12.5 mg twice a day. Patient is on Protonix 40 mg daily . Hemoglobin has remained stable with no active signs or symptoms of bleeding. Patient to be transferred to [facility] for further work up and treatment. The patient received proper medical treatment and medications. Vital signs, Imaging and Laboratory Work was monitored daily. All consults recommendations were followed as provided. There were no complaints or new complaints upon discharge, all questions and concerns were answered. Patient was advised to return to the ER or call 911 if any headaches, dizziness, shortness of breath, chest pain, bleeding, fevers, or worsening of medical condition. Patient/Family was counseled about treatment plan, medications, possible side effects, patient verbalized understanding. All questions were answered to the best of my ability. The patient symptoms improved and they are okay to be DC. Condition at Discharge: Stable Final Diagnosis/Problems List Acute CVA Left ICA stenosis Hypertensive urgency Bladder mass-bladder diverticulum Urethral stenosis- link catheter in place Hypertensive urgency Bilateral lower extremity weakness Obesity DM II w/ hyperglycemia HLD Medication, monitoring GERD CVA with residual defects CKD 3B Acute CVA Hyperkalemia Discharge Disposition: Acute Care Facility Discharge Instruct/Medications Diet: Cardiac 2g Na,low cholest Activity: No Restrictions, As Tolerated Follow Up/Referral: Transfer to [facility] Discharge Statement: "Patient was advised to return to the ER or call 911 if any headaches, dizziness, shortness of breath, chest pain, abdominal pain, bleeding, fevers, or worsening of medical condition. Patient was counseled about treatment plan, medications, possible side effects, patientverbalized understanding. All questions were answered to the best of my ability. This discharge took greater then 30 minutes in planning, reviewing documentation, counseling the patient, and discussing with other team members." ASSESSMENT ASSESSMENT Hospital Course Patient was admitted on December 09, 2024 for generalized weakness and stroke like symptoms. Patient was seen by cardiology as well as neurology. MRI on December 09 showed an acute CVA. Patient has left ICA stenosis. Imaging also showed possible bladder mass. Cystogram showed bladder diverticulum. Patient had a cystoscopy by Dr. Burak Taylor, which showed urethral stenosis. Link catheter to remain in place. Patient will follow up with urology outpatient for further work up. Patient had signs of aphasia after procedure. Repeat MRI on December 13 showed a recurrent CVA most likely from left ICA stenosis. Patient is status post CLAUDY no cardiac emboli was found. Patients last echocardiogram showed an ejection fraction of 60 to 65%. Patients mentation and speech has significantly improved. Due to large vessel, occlusion and stenosis of left ICA neurology has requested higher level of care transfer for treatment. Patient was also seen and evaluated by Jen due to a history of a G.I. bleed Elodia.Michelle. did OK for anticoagulation current medications for CVA include aspirin 81 mg daily, Lipitor 80 mg daily, 60 mg daily, and Keurig 12.5 mg twice a day. Patient is on Protonix 40 mg daily . Hemoglobin has remained stable with no active signs or symptoms of bleeding. Patient to be transferred to [facility] for further work up and treatment. The patient received proper medical treatment and medications. Vital signs, Imaging and Laboratory Work was monitored daily. All consults recommendations were followed as provided. There were no complaints or new complaints upon discharge, all questions and concerns were answered. Patient was advised to return to the ER or call 911 if any headaches, dizziness, shortness of breath, chest pain, bleeding, fevers, or worsening of medical condition. Patient/Family was counseled about treatment plan, medications, possible side effects, patient verbalized understanding. All questions were answered to the best of my ability. The patient symptoms improved and they are okay to be DC. Assessment Acute CVALeft ICA stenosisHypertensive urgencyBladder mass-bladder diverticulumUrethral stenosis- link catheter in placeHypertensive urgencyBilateral lower extremity weaknessObesityDM II w/ hyperglycemiaHLDMedication, monitoringGERDCVA with residual defectsCKD 3BAcute CVAHyperkalemia VITOR SCHULTZ NP Dec 23, 2024 11:08
--- NOTE | 2024-12-23 20:25 | DVHPN2 ---
Progress Note - Dictate Date Seen: Dec 22, 2024 Medical Necessity Reason Pt with a Central, PICC or Fol: Yes The following are medically ne: Gonzalez Catheter vital signs Vital Sign Date Time Temp Pulse Resp B/P (MAP) Pulse Ox O2 Delivery O2 Flow Rate FiO2 12/23/24 17:19 142/83 12/23/24 17:00 98.2 80 20 96 98.2 12/23/24 07:51 Room Air* 0 21 Total Intake and Output 12/22/24 12/22/24 12/23/24 15:00 23:00 07:00 Intake Total 1100 ml 600 ml Output Total 400 ml 100 ml 550 ml Balance -400 ml 1000 ml 50 ml medications Current Medications Medications Dose Ordered Sig/Abilio Route Start Time Stop Time Status Last Admin Dose Admin Ondansetron HCl 4 mg Q4HP PRN IV 12/09/24 11:00 12/10/24 16:44 4 MG Docusate Sodium 100 mg BIDPRN PRN PO 12/09/24 11:00 12/13/24 10:22 100 MG Acetaminophen 650 mg Q6HP PRN PO 12/09/24 11:00 Nitroglycerin 0.4 mg Q5MINP PRN SL 12/09/24 11:00 Diagnostic Test (Pha) 1 strip ACHS 12/09/24 11:30 12/23/24 17:21 1 STRIP Insulin Human Regular ACHS SC 12/09/24 11:30 12/23/24 17:22 2 UNITS Dextrose 50 ml UD PRN IV 12/09/24 11:00 Atorvastatin Calcium 80 mg HS PO 12/09/24 22:00 12/22/24 21:36 80 MG Aspirin 81 mg DAILY PO 12/09/24 13:15 12/23/24 09:47 81 MG Pantoprazole Sodium 40 mg DAILY IV 12/11/24 10:00 12/23/24 09:46 40 MG Clonidine HCl 0.2 mg BID PO 12/11/24 16:45 12/23/24 09:47 0.2 MG Hydralazine HCl 10 mg Q6HP PRN IV 12/17/24 15:30 12/19/24 23:12 10 MG Hydralazine HCl 50 mg Q6HR PO 12/20/24 15:30 12/23/24 17:19 50 MG Insulin Glargine 15 units DAILY@1000 SC 12/21/24 10:00 12/23/24 09:50 15 UNITS Carvedilol 12.5 mg Q12HR PO 12/21/24 22:00 12/23/24 09:49 12.5 MG Insulin Glargine 5 units HS SC 12/21/24 22:00 12/22/24 21:52 5 UNITS Nifedipine 60 mg DAILY PO 12/23/24 10:00 12/23/24 09:48 60 MG objective General Appearance: alert, no distress HEENT: EOMI, PERRLA, normal external inspect of ears, no icterus, no nasal drainage Neck: no carotid bruit, no jugular venous distention (JVD), no lymphadenopathy Chest: normal thorax Respiratory: clear to auscultation, normal air movement Cardiovascular: regular rate and rhythm, no diastolic murmur, no jugular venous distention (JVD), no rub, no systolic murmur Abdominal: soft, no hepatomegaly, no mass, no splenomegaly, no tenderness Musculoskeletal: no joint tenderness, no swelling Extremities: normal pulses, no calf tenderness, no clubbing, no cyanosis, no edema Skin: no bruising, no jaundice, no rash Neurological: alert, No focal deficit laboratory and microbiology Laboratory Tests 12/23/24 07:52 Test 12/23/24 07:52 Range/Units Serum Glucose 81 74-106 mg/dL Problem List 1. Hypertensive urgency Cardiology conult 2. Bilateral lower extremity weakness Medication, monitoring 3. Obesity Diet education, monitor 4. DM II w/ hyperglycemia Insulin Sliding Scale 5. HLD Medication, monitoring 6. GERD Medication, monitoring 7. CVA with residual defects Neurology consult 8. CKD 3B Medication, monitoring 9. Acute CVA MRI of Brain Assessment/Plan Subjective Patient appears to be alert and oriented. Objective Patient was admitted on December 09, 2024 for generalized weakness and stroke like symptoms. Patient was seen by cardiology as well as neurology. MRI on December 09 showed an acute CVA. Patient has left ICA stenosis. Imaging also showed possible bladder mass. Cystogram showed bladder diverticulum. Patient had a cystoscopy by Dr. Burak Taylor, which showed urethral stenosis. Gonzalez catheter to remain in place. Patient will follow up with urology outpatient for further work up. Patient had signs of aphasia after procedure. Repeat MRI on December 13 showed a recurrent CVA most likely from left ICA stenosis. Patient is status post CLAUDY no cardiac emboli was found. Patients last echocardiogram showed an ejection fraction of 60 to 65%. Patients mentation and speech has significantly improved. Due to large vessel, occlusion and stenosis of left ICA neurology has requested higher level of care transfer for treatment. Patient was also seen and evaluated by Jen due to a history of a G.I. bleed Jen did OK for anticoagulation current medications for CVA include aspirin 81 mg daily, Lipitor 80 mg daily, 60 mg daily, and Keurig 12.5 mg twice a day. Patient is on Protonix 40 mg daily . Hemoglobin has remained stable with no active signs or symptoms of bleeding. Patient to be transferred to [facility] for further work up and treatment. Patient was unable to be discharged due to ongoing social group worker arrangements for transfer to a higher level of care and insurance authorization. Plan Continue current medications as recommended by neurology. D/C planning Dietary Evaluation Review Comments: 1. Recommend adding CHO restriction 75 gm/meal to assist w/ glycemic control and still meet pt's caloric needs 2. Continue ss insulin as needed, consider addition of long-acting insulin 3. Continue frequent BG checks; goal >70, <180 mg/dl while inpatient 4. Given variable intakes, recommend Glucerna oral supplement 1x/day to enhance nutritional status (provides 220 kcal, 10 gm pro, 26 gm CHO) Expected Outcomes/Goals: Improved glycemic control, adequate nutrition, weight maintenance Plan discussed with: Patient, Other VITOR SCHULTZ NP Dec 23, 2024 20:25
--- NOTE | 2024-12-23 22:14 | DVHPN2 ---
Progress Note - Dictate Date Seen: Dec 23, 2024 Medical Necessity Reason Pt with a Central, PICC or Fol: Yes The following are medically ne: Gonzalez Catheter Subjective Mr. Goldsmith is a 69 years old right-handed gentleman with a history of hypertension, diabetes, dyslipidemia, he came to the [facility] on 12/09/2024 with a chief complaint of bilateral leg weakness. At that time, he is alert, fully oriented, he provided the following history I saw him on 08/20/23 for syncope, 09/03/24 for metabolic encephalopathy (MRI: acute strokes) I have seen and examined the patient, I have discussed with his nurses, he was awake, oriented x3. He reports mild weakness in the left arm than leg, however is hard for me to confirmed on physical examination According to his nurse, [facility] has accepted the patient Urinalysis, 12/09/2024: WBC: 314, urine leukocyte esterase: 3+ WBC/HB/PLT/MCV, 12/09/2024: 4/12.8/207/85.3 HGB A1c, 07/2023: 6.1, 12/09/2024: 7.6 BUN/CR, 09/03/2024: 22/1.81, 12/09/2024: 12/1.62 TG/HDL/LDL/HDL, 12/09/2024: 172/277/203/46 Vitamin B12, 04/2024: 622 TSH, 04/2020 4:2.29 CLAUDY, 12/12/2024: 1. Left ventricle: Mild concentrated Left ventricular hypertrophy was seen. LVEF was 65%. There was no gross wall motion abnormality seen. 2. Right ventricle: Normal RV size with normal systolic function. 3. Left atrium: LA mildly enlarged 4. Right atrium: RA was normal 5. Mitral valve: Trace Mitral regurgitation, no significant stenosis, normal functioning valve 6. Left atrial appendage: No evidence of thrombus. 7. Aortic valve: Aortic valve was trileaflet. There was no Aortic stenosis/Insufficiency 8. Pulmonic valve: Trivial pulmonic insufficiency. No significant stenosis. 9. Tricuspid valve: Trace tricuspid regurgitation. 10. Interatrial septum: Negative color flow for shunt was observed. Bubble study was negative (normal) 11. Pericardium: No significant effusion. 12. Thoracic aorta: No significant plaquing. 13 No vegetation was seen. Echocardiogram, 12/10/2024: Left ventricle: Concentric left ventricular hypertrophy was seen. LVEF was 60-65%. There was no gross wall motion abnormality. Right ventricle was normal sized with normal systolic function. Left atrium was dilated. Right atrium was normal sized. Aortic valve: Aortic valve was trileaflet. There was no aortic insufficiency/stenosis. There was trivial mitral regurgitation. There was no tricuspid regurgitation. There was no pulmonary valve insufficiency. There was no pericardial effusion. As there was no good tricuspid regurgitation jet, right ventricular systolic pressure could not be estimated. There was no echocardiographic evidence for pulmonary hypertension. IVC was normal sized with normal respiratory variation MRI head, 08/03/2023: No acute findings. Small vessel chronic ischemic changes MRI head, 09/04/2024: Few small foci of acute ischemia, suspect embolic infarcts. Clinical correlation and continued follow-up is recommended. Consider further evaluation with CTA or MRA of the head and neck MRI head, 12/09/2024: 1. Small foci of acute ischemia in the right thalamus and left parietal cortex. No intracranial hemorrhage. 2. Extensive chronic microvascular ischemic changes, advanced for patient's age. MRI head, 12/13/2024: 1. Acute infarcts in the right prsaad radiata , left parietal subcortical region, posteromedial left temporal lobe. Given the bilaterality, correlate for thromboembolic, vasospastic etiology 2. Moderate to advanced chronic microvascular ischemic changes. 3. Mild global cerebral volume loss (the right basal ganglia acute stroke is enlarged, new strokes in the left parietal lobe) MRA brain, neck, 12/09/2024: 1. High-grade stenosis in the left intracranial ICA. 2. Short-segment occlusion of distal M2 segment of the left MCA. 3. Short- segment moderate stenosis of the proximal A2 segment of the left GILMA. 4. Short- segment occlusion of A3 segment of the right GILMA. 5. Moderate stenosis of the proximal basilar artery. 6. Hypoplastic right vertebral artery short-segment foci of high-grade stenosis and occlusion of the V3 segment vital signs Vital Sign Date Time Temp Pulse Resp B/P (MAP) Pulse Ox O2 Delivery O2 Flow Rate FiO2 12/23/24 21:39 89 139/80 12/23/24 20:52 98.6 16 94 98.6 12/23/24 07:51 Room Air* 0 21 Total Intake and Output 12/22/24 12/22/24 12/23/24 15:00 23:00 07:00 Intake Total 1100 ml 600 ml Output Total 400 ml 100 ml 550 ml Balance -400 ml 1000 ml 50 ml medications Current Medications Medications Dose Ordered Sig/Abilio Route Start Time Stop Time Status Last Admin Dose Admin Ondansetron HCl 4 mg Q4HP PRN IV 12/09/24 11:00 12/10/24 16:44 4 MG Docusate Sodium 100 mg BIDPRN PRN PO 12/09/24 11:00 12/13/24 10:22 100 MG Acetaminophen 650 mg Q6HP PRN PO 12/09/24 11:00 Nitroglycerin 0.4 mg Q5MINP PRN SL 12/09/24 11:00 Diagnostic Test (Pha) 1 strip ACHS 12/09/24 11:30 12/23/24 21:39 1 STRIP Insulin Human Regular ACHS SC 12/09/24 11:30 12/23/24 22:03 6 UNITS Dextrose 50 ml UD PRN IV 12/09/24 11:00 Atorvastatin Calcium 80 mg HS PO 12/09/24 22:00 12/23/24 21:35 80 MG Aspirin 81 mg DAILY PO 12/09/24 13:15 12/23/24 09:47 81 MG Pantoprazole Sodium 40 mg DAILY IV 12/11/24 10:00 12/23/24 09:46 40 MG Clonidine HCl 0.2 mg BID PO 12/11/24 16:45 12/23/24 21:39 0.2 MG Hydralazine HCl 10 mg Q6HP PRN IV 12/17/24 15:30 12/19/24 23:12 10 MG Hydralazine HCl 50 mg Q6HR PO 12/20/24 15:30 12/23/24 17:19 50 MG Insulin Glargine 15 units DAILY@1000 SC 12/21/24 10:00 12/23/24 09:50 15 UNITS Carvedilol 12.5 mg Q12HR PO 12/21/24 22:00 12/23/24 21:39 12.5 MG Insulin Glargine 5 units HS SC 12/21/24 22:00 12/23/24 22:03 5 UNITS Nifedipine 60 mg DAILY PO 12/23/24 10:00 12/23/24 09:48 60 MG objective General: the patient is well developed and nourished. No acute distress. MENTAL STATUS: Subjective SPEECH, LANGUAGE, HIGHER CORTICAL FUNCTION: no aphasia or dysathria. CRANIAL NERVES: Intact visual godfrey to confrontation. Pupils are equal, round and reactive. EOMs full and conjugate. No nystagmus. Facial sensation intact in all three divisions bilaterally. Mandibular strength intact. Facial muscles symmetrical and strength intact. SENSATION: Sensation to touch and pinprick is normal. MOTOR: Normal tone in the upper and lower extremity. Normal muscle bulk. No fasciculations. No abnormal movements or posturing. Muscle strength of the major groups in the upper extremities is 5/5. Muscle strength of the major groups in the lower extremities is right: 5/5. REFLEXES: Deep tendon reflexes are symmetrical. No pathological reflexes. CEREBELLAR/COORDINATION: Finger to nose is normal bilaterally. GAIT/STATION: deferred laboratory and microbiology Laboratory Tests 12/23/24 07:52 Test 12/23/24 07:52 Range/Units Serum Glucose 81 74-106 mg/dL Problem List Acute multiple strokes on admission, and he was more acute strokes in the MRI on 12/13/2024, ? Secondary to left ICA stenosis ? Cardiac or aorta emboli source Chronic stroke Left ICA high-grade stenosis History of GI bleeding with syncope, GI has cleared him to have antiplatelet treatment Assessment/Plan Monitoring Supportive treatment Telemetry Aspirin 81 mg daily Lipitor 80 mg daily Protonix, 40 mg daily DVT prophylaxis/SCD Syncope precautions discussed Trying to higher level of care Re: 1, Recurrent acute multiple strokes with unremarkable CLAUDY, telemetry record, 2 high-grade left IC stenosis Further address left high-grade ICA stenosis as outpatient This medical document was created using an electronic medical record system with [email or web address] dictation system. Although this document has been carefully reviewed, there may still be some phonetic and typographical errors. These areas are purely typographical due to imperfections of the software programs, and do not reflect any compromise in the patient's medical care. Prognosis poor Dietary Evaluation Review Comments: 1. Recommend adding CHO restriction 75 gm/meal to assist w/ glycemic control and still meet pt's caloric needs 2. Continue ss insulin as needed, consider addition of long-acting insulin 3. Continue frequent BG checks; goal >70, <180 mg/dl while inpatient 4. Given variable intakes, recommend Glucerna oral supplement 1x/day to enhance nutritional status (provides 220 kcal, 10 gm pro, 26 gm CHO) Expected Outcomes/Goals: Improved glycemic control, adequate nutrition, weight maintenance Plan discussed with: Patient, Other GRACIE UMAÑA MD Dec 23, 2024 22:14
[2024-12-24] VITALS (8 sets, daily range): BP systolic 134–159; BP diastolic 79–89; PULSE 65–90; RESP 16–20; TEMP 97.8–98.1; O2SAT 94–98
--- NOTE | 2024-12-24 06:33 | DVHPN2 ---
Progress Note - Dictate Date Seen: Dec 24, 2024 Medical Necessity Reason Pt with a Central, PICC or Fol: Yes The following are medically ne: Gonzalez Catheter vital signs Vital Sign Date Time Temp Pulse Resp B/P (MAP) Pulse Ox O2 Delivery O2 Flow Rate FiO2 12/24/24 05:52 134/87 12/24/24 05:00 98.0 76 16 95 98.0 12/23/24 20:00 Room Air* 0 21 Total Intake and Output 12/23/24 12/23/24 12/24/24 15:00 23:00 07:00 Intake Total 240 ml 440 ml 400 ml Output Total 375 ml 500 ml Balance 240 ml 65 ml -100 ml medications Current Medications Medications Dose Ordered Sig/Abilio Route Start Time Stop Time Status Last Admin Dose Admin Ondansetron HCl 4 mg Q4HP PRN IV 12/09/24 11:00 12/10/24 16:44 4 MG Docusate Sodium 100 mg BIDPRN PRN PO 12/09/24 11:00 12/13/24 10:22 100 MG Acetaminophen 650 mg Q6HP PRN PO 12/09/24 11:00 Nitroglycerin 0.4 mg Q5MINP PRN SL 12/09/24 11:00 Diagnostic Test (Pha) 1 strip ACHS 12/09/24 11:30 12/23/24 21:39 1 STRIP Insulin Human Regular ACHS SC 12/09/24 11:30 12/23/24 22:03 6 UNITS Dextrose 50 ml UD PRN IV 12/09/24 11:00 Atorvastatin Calcium 80 mg HS PO 12/09/24 22:00 12/23/24 21:35 80 MG Aspirin 81 mg DAILY PO 12/09/24 13:15 12/23/24 09:47 81 MG Pantoprazole Sodium 40 mg DAILY IV 12/11/24 10:00 12/23/24 09:46 40 MG Clonidine HCl 0.2 mg BID PO 12/11/24 16:45 12/23/24 21:39 0.2 MG Hydralazine HCl 10 mg Q6HP PRN IV 12/17/24 15:30 12/19/24 23:12 10 MG Hydralazine HCl 50 mg Q6HR PO 12/20/24 15:30 12/24/24 05:52 50 MG Insulin Glargine 15 units DAILY@1000 SC 12/21/24 10:00 12/23/24 09:50 15 UNITS Carvedilol 12.5 mg Q12HR PO 12/21/24 22:00 12/23/24 21:39 12.5 MG Insulin Glargine 5 units HS SC 12/21/24 22:00 12/23/24 22:03 5 UNITS Nifedipine 60 mg DAILY PO 12/23/24 10:00 12/23/24 09:48 60 MG laboratory and microbiology Laboratory Tests 12/23/24 07:52 Test 12/23/24 07:52 Range/Units Serum Glucose 81 74-106 mg/dL Assessment/Plan Patient is a 69-year-old gentleman who presented to the hospital for worsening bilateral lower extremity weakness and swelling. He did have some headaches. He mentions that he has not been able to walk for the past 2 days. It is of note that the patient did have a CVA back in August 2024. Since that time he was able to walk with cane but for the past 2 days he is unable to. Cardiology was involved for cardiac aspects of care. He denies chest pains. He denies shortness of breath. He denies loss of consciousness. He denies dizziness. Morbidly obese. Not in acute distress. Not using accessory muscles of breathing. No JVD. Speaks slowly. Mucosa is pink and wet. No goiter. No carotid bruit. Lungs are clear to auscultation. Cardiac: Regular, no thrill/gallop. Abdomen is soft. There is no gross mass. Bowel sound is positive. Dorsalis pedis is 2+ bilateral Past medical history includes hypertension, diabetes mellitus, morbid obesity, history of CVA, CKD, old history of GI bleeding anemia, GERD, hyperlipidemia, hiatal hernia and old history of hepatitis-C. Does have history of smoking. Denies alcohol and drug abuse. Family history is positive for hypertension/CVA and heart murmur Echocardiogram of August 03, 2023 had reported mild concentric left ventricular hypertrophy, aortic sclerosis, ejection fraction of 65-70% and no vegetation Echocardiogram of August 2024 revealed ejection fraction of 60-65% Troponin (high sensitive): 3 LDL: 203 CT of the head reported: IMPRESSION: 1. No acute intracranial process. 2. Moderate chronic microvascular ischemic changes. Repeat CT of head reported: IMPRESSION: 1. Generalized brain atrophy. 2. Small vessel ischemic/degenerative changes. 3. No acute intracranial hemorrhage, midline shift or mass effect. If symptoms persist, further evaluation with MRI is recommended. MRI of the brain revealed: IMPRESSION: 1. Small foci of acute ischemia in the right thalamus and left parietal cortex. No intracranial hemorrhage. 2. Extensive chronic microvascular ischemic changes, advanced for patient's age. Repeat MRI of brain reported: IMPRESSION: 1. Acute infarcts in the right prasad radiata , left parietal subcortical region, posteromedial left temporal lobe. Given the bilaterality, correlate for thromboembolic, vasospastic etiology 2. Moderate to advanced chronic microvascular ischemic changes. 3. Mild global cerebral volume loss. MRI/MRA of the brain reported: IMPRESSION: 1. High-grade stenosis in the left intracranial ICA. 2. Short-segment occlusion of distal M2 segment of the left MCA. 3. Short-segment moderate stenosis of the proximal A2 segment of the left GILMA. 4. Short-segment occlusion of A3 segment of the right GILMA. 5. Moderate stenosis of the proximal basilar artery. 6. Hypoplastic right vertebral artery short-segment foci of high-grade stenosis and occlusion of the V3 segment. Critical Result: Large vessel occlusion Chest xry reported: IMPRESSION: No evidence of acute disease in the chest. Renal ultrasound revealed: FINDINGS: The right kidney measures 10 cm in length, which is normal in size. There is normal echogenicity of the right kidney. No hydronephrosis. The left kidney measures 10 cm in length, which is normal in size. There is normal echogenicity of the left kidney. No hydronephrosis. Bladder mass measuring 7.3 cm. IMPRESSION: Possible hyperechoic bladder mass. Cystoscopy recommended Cystogram reported; IMPRESSION: A large bladder diverticulum is seen at the bladder dome with an additional smaller diverticulum seen just laterally. EKG reveals sinus rhythm with no specific ST-T changes. Tele reveals sinus rhythm Echocardiogram reported: Left ventricle: Concentric left ventricular hypertrophy was seen. LVEF was 60-65%. There was no gross wall motion abnormality. Right ventricle was normal sized with normal systolic function. Left atrium was dilated. Right atrium was normal sized. Aortic valve: Aortic valve was trileaflet. There was no aortic insufficiency/stenosis. There was trivial mitral regurgitation. There was no tricuspid regurgitation. There was no pulmonary valve insufficiency. There was no pericardial effusion. As there was no good tricuspid regurgitation jet, right ventricular systolic pressure could not be estimated. There was no echocardiographic evidence for pulmonary hypertension. IVC was normal sized with normal respiratory variation. CLAUDY did not reveal any Cardiac source for Emboli Patient is a 69-year-old gentleman who presented with lower extremity weakness. Imaging/CT/MRI has revealed CVA. Acute coronary syndrome is not considered at this point. Cardiac etiology for presentation is less likely. CVA, acute Morbid obesity Diabetes mellitus Hypertension Hiatal hernia GI bleeding, history of CKD Kidney mass s/p cystoscopy Bladder Diverticulum Cardiac suggestion for management: Manage on telemetry Follow-up electrolytes and kidney function tests and correct abnormalities Aspirin daily High potency statin Management / goal of blood pressure as per Neurology Status post CLAUDY revealing no cardiac source of emboli observed Neurology follow up (suggested for transferring to higher level of care) Cardiac miranda, stable Further evaluation and management depends on the above and clinical course A total of 55 minutes was spent reviewing the patient record, examining the patient, making a diagnostic and therapeutic plan, discussing this plan with medical personnel, following up on diagnostic studies and following the patient for clinical stability excluding any and all procedures. At least 50% of this time was spent in direct, [id number] contact. Thank you for allowing me to participate in this patient's care. Further recommendations will depend on patient's clinical course. Please do not hesitate to contact me if you have any questions or concerns. This medical document was created using electronic medical record system with [employer] computerized dictation system. Although this document has been carefully reviewed, there may still be some phonetic and typographical errors. These areas are purely typographical due to the imperfection of the software programs, and do not reflect any compromise in the patient's medical care. Dietary Evaluation Review Comments: 1. Recommend adding CHO restriction 75 gm/meal to assist w/ glycemic control and still meet pt's caloric needs 2. Continue ss insulin as needed, consider addition of long-acting insulin 3. Continue frequent BG checks; goal >70, <180 mg/dl while inpatient 4. Given variable intakes, recommend Glucerna oral supplement 1x/day to enhance nutritional status (provides 220 kcal, 10 gm pro, 26 gm CHO) Expected Outcomes/Goals: Improved glycemic control, adequate nutrition, weight maintenance Plan discussed with: Patient, Other (nurse) NEVAEH FALCON MD Dec 24, 2024 06:33
--- NOTE | 2024-12-24 14:50 | DVHPN2 ---
Progress Note - Dictate Date Seen: Dec 24, 2024 Medical Necessity Reason Pt with a Central, PICC or Fol: Yes The following are medically ne: Gonzalez Catheter vital signs Vital Sign Date Time Temp Pulse Resp B/P (MAP) Pulse Ox O2 Delivery O2 Flow Rate FiO2 12/24/24 12:53 97.8 65 20 143/79 (100) 98 97.8 12/24/24 07:37 Room Air* 0 21 Total Intake and Output 12/23/24 12/23/24 12/24/24 15:00 23:00 07:00 Intake Total 240 ml 440 ml 400 ml Output Total 375 ml 500 ml Balance 240 ml 65 ml -100 ml medications Current Medications Medications Dose Ordered Sig/Abilio Route Start Time Stop Time Status Last Admin Dose Admin Ondansetron HCl 4 mg Q4HP PRN IV 12/09/24 11:00 12/10/24 16:44 4 MG Docusate Sodium 100 mg BIDPRN PRN PO 12/09/24 11:00 12/13/24 10:22 100 MG Acetaminophen 650 mg Q6HP PRN PO 12/09/24 11:00 Nitroglycerin 0.4 mg Q5MINP PRN SL 12/09/24 11:00 Diagnostic Test (Pha) 1 strip ACHS 12/09/24 11:30 12/24/24 11:30 1 STRIP Insulin Human Regular ACHS SC 12/09/24 11:30 12/24/24 11:34 6 UNITS Dextrose 50 ml UD PRN IV 12/09/24 11:00 Atorvastatin Calcium 80 mg HS PO 12/09/24 22:00 12/23/24 21:35 80 MG Aspirin 81 mg DAILY PO 12/09/24 13:15 12/24/24 08:50 81 MG Pantoprazole Sodium 40 mg DAILY IV 12/11/24 10:00 12/24/24 08:49 40 MG Clonidine HCl 0.2 mg BID PO 12/11/24 16:45 12/24/24 08:51 0.2 MG Hydralazine HCl 10 mg Q6HP PRN IV 12/17/24 15:30 12/19/24 23:12 10 MG Hydralazine HCl 50 mg Q6HR PO 12/20/24 15:30 12/24/24 11:30 50 MG Insulin Glargine 15 units DAILY@1000 SC 12/21/24 10:00 12/24/24 08:58 15 UNITS Carvedilol 12.5 mg Q12HR PO 12/21/24 22:00 12/24/24 08:51 12.5 MG Insulin Glargine 5 units HS SC 12/21/24 22:00 12/23/24 22:03 5 UNITS Nifedipine 60 mg DAILY PO 12/23/24 10:00 12/24/24 08:50 60 MG objective General Appearance: alert, no distress HEENT: EOMI, PERRLA, normal external inspect of ears, no icterus, no nasal drainage Neck: no carotid bruit, no jugular venous distention (JVD), no lymphadenopathy Chest: normal thorax Respiratory: clear to auscultation, normal air movement Cardiovascular: regular rate and rhythm, no diastolic murmur, no jugular venous distention (JVD), no rub, no systolic murmur Abdominal: soft, no hepatomegaly, no mass, no splenomegaly, no tenderness Musculoskeletal: no joint tenderness, no swelling Extremities: normal pulses, no calf tenderness, no clubbing, no cyanosis, no edema Skin: no bruising, no jaundice, no rash Neurological: alert, No focal deficit laboratory and microbiology Laboratory Tests 12/23/24 07:52 Test 12/23/24 07:52 Range/Units Serum Glucose 81 74-106 mg/dL Problem List 1. Hypertensive urgency Cardiology conult 2. Bilateral lower extremity weakness Medication, monitoring 3. Obesity Diet education, monitor 4. DM II w/ hyperglycemia Insulin Sliding Scale 5. HLD Medication, monitoring 6. GERD Medication, monitoring 7. CVA with residual defects Neurology consult 8. CKD 3B Medication, monitoring 9. Acute CVA MRI of Brain Assessment/Plan Subjective Patient appears to be alert and oriented. Objective Patient was admitted on December 09, 2024 for generalized weakness and stroke like symptoms. Patient was seen by cardiology as well as neurology. MRI on December 09 showed an acute CVA. Patient has left ICA stenosis. Imaging also showed possible bladder mass. Cystogram showed bladder diverticulum. Patient had a cystoscopy by Dr. uBrak Taylor, which showed urethral stenosis. Gonzalez catheter to remain in place. Patient will follow up with urology outpatient for further work up. Patient had signs of aphasia after procedure. Repeat MRI on December 13 showed a recurrent CVA most likely from left ICA stenosis. Patient is status post CLAUDY no cardiac emboli was found. Patients last echocardiogram showed an ejection fraction of 60 to 65%. Patients mentation and speech has significantly improved. Due to large vessel, occlusion and stenosis of left ICA neurology has requested higher level of care transfer for treatment. Patient was also seen and evaluated by Jen due to a history of a G.I. bleed Jen did OK for anticoagulation current medications for CVA include aspirin 81 mg daily, Lipitor 80 mg daily, 60 mg daily, and Keurig 12.5 mg twice a day. Patient is on Protonix 40 mg daily . Hemoglobin has remained stable with no active signs or symptoms of bleeding. Patient to be transferred to [facility] for further work up and treatment. Plan Still waiting for available bed by [facility] for transfer of higher level of care for left internal carotid artery stenosis with large vessel occlusion. has accepted the patient. [id number] has been done. Waiting for bed availability. Dietary Evaluation Review Comments: 1. Recommend adding CHO restriction 75 gm/meal to assist w/ glycemic control and still meet pt's caloric needs 2. Continue ss insulin as needed, consider addition of long-acting insulin 3. Continue frequent BG checks; goal >70, <180 mg/dl while inpatient 4. Given variable intakes, recommend Glucerna oral supplement 1x/day to enhance nutritional status (provides 220 kcal, 10 gm pro, 26 gm CHO) Expected Outcomes/Goals: Improved glycemic control, adequate nutrition, weight maintenance Plan discussed with: Patient, Other VITOR SCHULTZ NP Dec 24, 2024 14:50
[2024-12-24 15:17] LABS: Basophils # (auto) 0 10 ^3/uL (0-0.2); Basophils % (auto) 0.8 % (0.0-2.0); Eosinophils # (auto) 0.1 10 ^3/uL (0-0.8); Eosinophils % (auto) 1.3 % (0.0-7.0); Hematocrit 36.7 % (41.0-53.0); Hemoglobin 12.1 g/dL (13.5-17.5); Lymphocytes # (auto) 1.7 10 ^3/uL (0.4-5.4); Lymphocytes % (auto) 37.9 % (10.0-50.0); Mean Corpuscular Hemoglobin 28.4 pg (28.0-32.0); Mean Corpuscular Volume 86.2 fL (80.0-100.0); Monocytes # (auto) 0.5 10 ^3/uL (0-1.3); Neutrophils # (auto) 2.2 10 ^3/uL (1.6-8.6); Nucleated Red Blood Cells % 0.1 %; Platelet Count (auto) 216 10^3/uL (140-450); Red Blood Cells 4.26 10^6/uL (4.5-5.90); Red Cell Distribution Width 16.3 % (11.8-14.3); White Blood Cell 4.5 10^3/uL (4.4-10.8)
[2024-12-24 15:36] LABS: Alanine Aminotransferase 22 U/L (7-40); Albumin 3.4 g/dL (3.2-4.8); Alkaline Phosphatase 87 U/L (46-116); Anion Gap 7 (5-15); Aspartate Aminotransferase 21 U/L (13-40); BUN/Creatinine Ratio 14.1 (10.0-20.0); Bilirubin, Total 0.3 mg/dL (0.2-1.0); Blood Urea Nitrogen 21 mg/dL (9-23); Carbon Dioxide 25 mmol/L (20-31); Chloride 104 mmol/L (98-107); Glucose 246 mg/dL (74-106); Potassium 4.5 mmol/L (3.5-5.1); Sodium 136 mmol/L (136-145); Total Protein 5.9 g/dL (5.7-8.2)
[2024-12-24] MEDS: ACETAMINOPHEN 325 MG TAB PO PRN (20:23)
== END 2024-12-25 01:15 | disposition short-term general hospital (02) | DRG 64 ==
LOC: ER 09:02 → OVERFLOW 10:58 → TELE-WESTW 12-10 12:44
PROVIDERS: ADMIT Nurse Practitioner; ATTEND Nurse Practitioner
PROC: 0T7D8ZZ Dilation of Urethra, Via Natural or Artificial Opening Endoscopic (ICD-10-PCS; principal; 2024-12-12)
PROC: B24BZZ4 Ultrasonography of Heart with Aorta, Transesophageal (ICD-10-PCS; 2024-12-12)
DX: I63.9 Cerebral infarction, unspecified (principal); N17.0 Acute kidney failure with tubular necrosis; I13.0 Hypertensive heart and chronic kidney disease with heart failure and stage 1 through stage 4 chronic kidney disease, or unspecified chronic kidney disease; N17.9 Acute kidney failure, unspecified; K29.70 Gastritis, unspecified, without bleeding; I16.0 Hypertensive urgency; E11.65 Type 2 diabetes mellitus with hyperglycemia; K21.9 Gastro-esophageal reflux disease without esophagitis; N28.89 Other specified disorders of kidney and ureter; N18.32 Chronic kidney disease, stage 3b; K63.5 Polyp of colon; E11.22 Type 2 diabetes mellitus with diabetic chronic kidney disease; I25.10 Atherosclerotic heart disease of native coronary artery without angina pectoris; E78.5 Hyperlipidemia, unspecified; E66.01 Morbid (severe) obesity due to excess calories; N32.3 Diverticulum of bladder; I65.22 Occlusion and stenosis of left carotid artery; N35.919 Unspecified urethral stricture, male, unspecified site; E87.5 Hyperkalemia; I50.9 Heart failure, unspecified; F17.200 Nicotine dependence, unspecified, uncomplicated; Z79.899 Other long term (current) drug therapy; Z79.84 Long term (current) use of oral hypoglycemic drugs; Z79.82 Long term (current) use of aspirin; Z82.49 Family history of ischemic heart disease and other diseases of the circulatory system; Z82.3 Family history of stroke; Z83.3 Family history of diabetes mellitus; Z91.199 Patient's noncompliance with other medical treatment and regimen due to unspecified reason; Z68.29 Body mass index [BMI] 29.0-29.9, adult
CPT/HCPCS: 36415; 52000; 70450; 70545; 70547; 70551; 71045; 74430; 76775; 80048; 80053; 80061; 81001; 82962; 83036; 83735; 84484; 85025; 85610; 85730; 86850; 86900; 86901; 87086; 92610; 93005; 93306; 93312; 97110; 97116; 97163; 97530; 99152; 99291; 99292; G0378; J1815; J2250; J2405; J2470

== ENCOUNTER 2025-01-05 10:34 | Emergency (ER) | payer BC, MEDICAID ==
[~2025-01-05] VITALS: Ht 180.3 cm; Wt 89.2 kg
--- NOTE | 2025-01-05 11:15 | ED.PDOC ---
General HPI Comments 69 y.o male with PMHx of DM, hyperlipidemia, and HTN, presents to the ED for a chief complaint of urinary frequency x 5-6 days. Patient is accompanied by spouse who states patient recent had a CVA with ambulatory difficulties and was recently discharged about 1 week ago. Patient did have a catheter at home but is unsure when it was placed or removed. Patient at this time denies any other associating symptoms with his frequency and denies previous hematuria, dysuria, retention, nausea, vomiting or back/flank pain. Patient was placed on Plavix s/p CVA. Chief Complaint: Urinary Time Seen by MD: 11:00 Primary Care Provider: joseph Reviewed notes: Nurses Notes, Medications, Allergies Allergies: Coded Allergies: NO KNOWN ALLERGIES (Unverified , 06/03/16) Home Meds Active Scripts Ciprofloxacin Hcl (Cipro) 500 Mg Tab, 1 TAB PO BID, #14 TAB Prov:RUDY PALOMINO MD 01/05/25 Sucralfate (CARAFATE) 1 Gm Tab, 1 GM OR QIDACHS for 30 Days, #120 TAB Prov:VITOR SCHULTZ NP 09/08/24 Pantoprazole Sodium Sesquihydr (Protonix) 40 Mg Tab, 40 MG PO DAILY, #30 TAB Prov:VITOR SCHULTZ NP 09/08/24 Clonidine Hydrochloride (Clonidine Hcl) 0.2 Mg Tab, 1 TAB PO BID, #60 TAB 5 Refills Prov:VITOR SCHULTZ NP 09/08/24 Atorvastatin Calcium (ATORVASTATIN CALCIUM) 80 Mg Tab, 1 TAB PO DAILY, #30 TAB 5 Refills Prov:VITOR SCHULTZ NP 09/08/24 Reported Medications Dapagliflozin Propanediol (Farxiga) 10 Mg Tab, 1 TAB PO DAILY 09/03/24 Metformin Hydrochloride (Metformin Hcl) 850 Mg Tab, 1 TAB PO BID 09/30/22 Benazepril Hcl (Benazepril Hcl) 40 Mg Tab, 1 TAB PO DAILY 09/30/22 Amlodipine Besylate (Amlodipine Besylate) 10 Mg Tab, 1 TAB PO DAILY 09/30/22 Information Source: Patient, Spouse Mode of Arrival: Wheelchair Severity: Moderate Timing: Days Duration: Since onset Onset: Spontaneous Symptoms: Frequency History of: Suprapubic catheter Location: None Penile discharge: None Modifying factors: None associated signs and symptoms: Frequency Past Medical History PAST MEDICAL HISTORY: Anemia, CVA, DM, High Lipids, HTN Surgical History: Denies all surgeries Family History Family History: Family hx of stroke Social History Smoker: Non-Smoker Alcohol: Denies ETOH Use Drugs: Denies Drug Use Lives In: Home Constitutional: denies: chills, diaphoresis, fatigue, fever, malaise, sweats, weakness, others EENTM: denies: blurred vision, double vision, ear bleeding, ear discharge, ear drainage, ear pain, ear ringing, eye pain, eye redness, hearing loss, mouth pain, mouth swelling, nasal discharge, nose bleeding, nose congestion, nose pain, photophobia, tearing, throat pain, throat swelling, voice changes, others Respiratory: denies: cough, hemoptysis, orthopnea, SOB at rest, shortness of breath, SOB with excertion, stridor, wheezing, others Cardiovascular: denies: chest pain, dizzy spells, diaphoresis, Dyspnea on exert ion, edema, irregular heart beat, left arm pain, lightheadedness, palpitations, PND, syncope, others Gastrointestinal: denies: abdomen distended, abdominal pain, blood streaked bowels, constipated, diarrhea, dysphagia, difficulty swallowing, hematemesis, melena, nausea, poor appetite, poor fluid intake, rectal bleeding, rectal pain, vomiting, others Genitourinary: reports: frequency; denies: burning, dysuria, flank pain, hematuria, incontinence, penile discharge, penile sore, pain, testicle pain, testicle swelling, urgency, others Neurological: denies: dizziness, fainting, headache, left sided numbness, left sided weakness, numbness, paresthesia, pre-existing deficit, right sided numbness, right sided weakness, seizure, speech problems, tingling, tremors, weakness, others Musculoskeletal: denies: back pain, gout, joint pain, joint swelling, muscle pain, muscle stiffness, neck pain, others Integumetry: denies: bruises, change in color, change in hair/nails, dryness, laceration, lesions, lumps, rash, wounds, others Allergic/Immunocompromised: denies: Difficulty Healing, Frequent Infections, Hives, Itching, others Hematologic/Lymphatic: denies: anemia, blood clots, easy bleeding, easy bruising, swollen glands, others Endocrine: denies: excessive hunger, excessive sweating, excessive thirst, excessive urination, flushing, intolerance to cold, intolerance to heat, unexplained weight gain, unexplained weight loss, others Psychiatric: denies: anxiety, bipolar disorder, depression, hopeless, panic disorder, schizophrenia, sleepless, suicidal, others All Other Systems: Reviewed and Negative Physical Exam General Appearance: No Apparent Distress HEENT: Normal ENT Inspection, Pharynx Normal, TMs Normal Neck: Full Range of Motion, Non-Tender, Normal, Normal Inspection Respiratory: Chest Non-Tender, Lungs Clear, No Accessory Muscle Use, No Respiratory Distress, Normal Breath Sounds Cardiovascular: No Edema, No JVD, No Murmur, No Gallop, Normal Peripheral Pulses, Regular Rate/Rhythm Breast Exam: Deferred Gastrointestinal: No Organomegaly, No Pulsatile Mass, Normal Bowel Sounds, Soft, Suprapubic, Tenderness Genitalia: Deferred Pelvic: Deferred Rectal: Deferred Extremities: No calf tenderness, Normal capillary refill, Normal inspection, Normal range of motion, Non-tender, No pedal edema Musculoskeletal : Apperance: Normal Neurologic: Alert, automatic centrifugal station operator II-XII nml as Tested, No Motor Deficits, Normal Affect, Normal Mood, No Sensory Deficits Cerebellar Function: Normal Reflexes: Normal Skin: Dry, Normal Color, Warm Lymphatic: No Adenopathy Was a procedure done? Was a procedure done?: No Differential Diagnosis Kidney stone (Female): N/A Urinary Problem (Male): Bladder Outlet, Prostatitis, Renal Failure, Urethritis, UTI X-Ray, Labs, Meds, VS Vital Signs Date Time Temp Pulse Resp B/P (MAP) Pulse Ox O2 Delivery O2 Flow Rate FiO2 01/05/25 10:47 98.1 83 17 138/91 (107) 99 98.1 Lab Test 01/05/25 11:45 01/05/25 10:56 Range/Units White Blood Count 6.3 4.4-10.8 10^3/uL Red Blood Count 4.23 L 4.5-5.90 10^6/uL Hemoglobin 12.7 L 13.5-17.5 g/dL Hematocrit 38.2 L 41.0-53.0 % Mean Corpuscular Volume 90.2 80.0-100.0 fL Mean Corpuscular Hemoglobin 29.9 28.0-32.0 pg Mean Corpuscular Hemoglobin Concent 33.2 32.0-36.0 g/dL Red Cell Distribution Width 16.6 H 11.8-14.3 % Platelet Count 248 140-450 10^3/uL Mean Platelet Volume 9.0 6.9-10.8 fL Neutrophils (%) (Auto) 52.2 37.0-80.0 % Lymphocytes (%) (Auto) 35.3 10.0-50.0 % Monocytes (%) (Auto) 10.4 0.0-12.0 % Eosinophils (%) (Auto) 1.5 0.0-7.0 % Basophils (%) (Auto) 0.6 0.0-2.0 % Neutrophils # (Auto) 3.3 1.6-8.6 10 ^3/uL Lymphocytes # (Auto) 2.2 0.4-5.4 10 ^3/uL Monocytes # (Auto) 0.7 0-1.3 10 ^3/uL Eosinophils # (Auto) 0.1 0-0.8 10 ^3/uL Basophils # (Auto) 0 0-0.2 10 ^3/uL Nucleated Red Blood Cells 0.0 % Sodium Level 138 136-145 mmol/L Potassium Level 4.7 3.5-5.1 mmol/L Chloride Level 109 H 98-107 mmol/L Carbon Dioxide Level 22 20-31 mmol/L Anion Gap 7 5-15 Blood Urea Nitrogen 20 9-23 mg/dL Creatinine 2.04 H 0.700-1.30 mg/dL Glomerular Filtration Rate Calc 35 >90 mL/min BUN/Creatinine Ratio 9.8 L 10.0-20.0 Serum Glucose 293 H 74-106 mg/dL Calcium Level 9.6 8.7-10.4 mg/dL Urine Color Colorless Yellow Urine Clarity Turbid H Clear Urine pH 5.5 5.0-9.0 Urine Specific Patterson 1.024 1.001-1.035 Urine Protein 2+ H Negative Urine Ketones Negative Negative Urine Blood Trace H Negative /uL Urine Nitrite Negative Negative Urine Bilirubin Negative Negative Urine Urobilinogen Normal Negative mg/dL Urine Leukocyte Esterase 3+ Negative /uL Urine RBC 7 0 - 3 /hpf Urine WBC Clumps Present None Seen /hpf Urine Microscopic WBC 514 H 0-3 /HPF Urine Squamous Epithelial Cells Few <5 /hpf Urine Bacteria Few H None Seen /hpf Urine Mucus Few None Seen Urine Glucose 4+ H Normal mg/dL The CBC is within normal limits The chemistry panel shows hyperglycemia at 293 The urine test is positive for UTI The patient was being discharged with a prescription of Cipro The patient will return to the emergency department's condition worsens. The patient was diagnosis is UTI Time of 1ST Reevaluation: 11:11 Reevaluation 1ST: Unchanged Patient Education/Counseling: Diagnosis, Treatment, Prognosis, Need For Follow Up Family Education/Counseling: Diagnosis, Treatment, Prognosis, Need For Follow Up Departure 1 Departure Time of Disposition: 14:02 Impression: Primary Impression: UTI (urinary tract infection) Qualified Codes: N30.01 - Acute cystitis with hematuria Disposition: 01 HOME / SELF CARE / HOMELESS Condition: Fair e-Prescriptions Ciprofloxacin Hcl (Cipro) 500 Mg Tab 1 TAB PO BID, #14 TAB Prov: RUDY PALOMINO MD 01/05/25 Discharged With: Self Critical Care Note Critical Care Time?: No Stability Stability form required: No I personally scribed for RUDY PALOMINO MD ([email or web address]) on 01/05/25 at 11:15. Electronically submitted by Mis Hope ([facility]). RUDY PALOMINO MD Jan 05, 2025 11:15
[2025-01-05 11:28] LABS: Urine Bacteria FEW /hpf (None Seen); Urine Blood TRACE /uL (Negative); Urine Clarity Turbid (Clear); Urine Color Colorless (Yellow); Urine Mucus FEW (None Seen); Urine Protein, UAD 2+ (Negative); Urine Specific Gravity 1.024 (1.001-1.035); Urine Squamous Epithelial Cell FEW /hpf (<5); Urine Urobilinogen Normal (Negative); Urine WBC 514 /HPF (0-3); Urine WBC Clumps PRESENT /hpf (None Seen); Urine pH 5.5 (5.0-9.0)
[2025-01-05 12:07] LABS: Basophils # (auto) 0 10 ^3/uL (0-0.2); Basophils % (auto) 0.6 % (0.0-2.0); Eosinophils # (auto) 0.1 10 ^3/uL (0-0.8); Eosinophils % (auto) 1.5 % (0.0-7.0); Hematocrit 38.2 % (41.0-53.0); Hemoglobin 12.7 g/dL (13.5-17.5); Lymphocytes # (auto) 2.2 10 ^3/uL (0.4-5.4); Lymphocytes % (auto) 35.3 % (10.0-50.0); Mean Corpuscular Hemoglobin 29.9 pg (28.0-32.0); Mean Corpuscular Hgb Conc. 33.2 g/dL (32.0-36.0); Mean Corpuscular Volume 90.2 fL (80.0-100.0); Monocytes # (auto) 0.7 10 ^3/uL (0-1.3); Monocytes % (auto) 10.4 % (0.0-12.0); Neutrophils # (auto) 3.3 10 ^3/uL (1.6-8.6); Neutrophils % (auto) 52.2 % (37.0-80.0); Platelet Count (auto) 248 10^3/uL (140-450); Red Blood Cells 4.23 10^6/uL (4.5-5.90); Red Cell Distribution Width 16.6 % (11.8-14.3); White Blood Cell 6.3 10^3/uL (4.4-10.8)
[2025-01-05 12:10] LABS: Potassium 4.7 mmol/L (3.5-5.1); Sodium 138 mmol/L (136-145)
[2025-01-05 12:11] LABS: Anion Gap 7 (5-15); Calcium 9.6 mg/dL (8.7-10.4); Carbon Dioxide 22 mmol/L (20-31)
[2025-01-05 12:16] LABS: BUN/Creatinine Ratio 9.8 (10.0-20.0); Blood Urea Nitrogen 20 mg/dL (9-23)
[2025-01-05 12:20] LABS: Chloride 109 mmol/L (98-107); Glucose 293 mg/dL (74-106)
[2025-01-05] MEDS ORDERED: CIPR-173 PO (14:01)
[2025-01-05] MEDS: CIPROFLOXACIN HCL 500 MG TAB PO ONE (14:26)
[2025-01-05 14:31] VITALS: BP 137/86; PULSE 65; RESP 16; TEMP 97.7; O2SAT 97
== END 2025-01-05 14:36 | disposition home or self-care (01) ==
LOC: ER 10:34
DX: N39.0 Urinary tract infection, site not specified (principal); I10 Essential (primary) hypertension; Z86.73 Personal history of transient ischemic attack (TIA), and cerebral infarction without residual deficits; E11.9 Type 2 diabetes mellitus without complications; E78.5 Hyperlipidemia, unspecified; Z79.899 Other long term (current) drug therapy; Z79.84 Long term (current) use of oral hypoglycemic drugs; Z79.02 Long term (current) use of antithrombotics/antiplatelets
CPT/HCPCS: 36415; 80048; 81001; 85025

== ENCOUNTER 2025-01-08 22:25 | Inpatient (IN) | payer BC, MEDICAID ==
[~2025-01-08] VITALS: Ht 172.7 cm; Wt 87.8 kg
[~2025-01-08 22:25] MED LIST changes: +CIPR-173 PO
--- NOTE | 2025-01-08 22:52 | ED.PDOC ---
GI ASSESSMENT HPI Comments 69 year old male came to ER via EMS due to abdominal pain. Patient states he has been having burning epigastric abdominal pain since yesterday. Denies any nausea, vomiting, changes in bowel habits but complains of urinary frequency. Chief Complaint: Abdominal Pain Time Seen by MD: 22:51 Primary Care Provider: joseph Reviewed Notes: Clerical Manager Notes Allergies: Coded Allergies: NO KNOWN ALLERGIES (Unverified , 06/03/16) Home Meds Active Scripts Ciprofloxacin Hcl (Cipro) 500 Mg Tab, 1 TAB PO BID, #14 TAB Prov:RUDY PALOMINO MD 01/05/25 Sucralfate (CARAFATE) 1 Gm Tab, 1 GM OR QIDACHS for 30 Days, #120 TAB Prov:VITOR SCHULTZ NP 09/08/24 Pantoprazole Sodium Sesquihydr (Protonix) 40 Mg Tab, 40 MG PO DAILY, #30 TAB Prov:VITOR SCHULTZ NP 09/08/24 Clonidine Hydrochloride (Clonidine Hcl) 0.2 Mg Tab, 1 TAB PO BID, #60 TAB 5 Refills Prov:VITOR SCHULTZ NP 09/08/24 Atorvastatin Calcium (ATORVASTATIN CALCIUM) 80 Mg Tab, 1 TAB PO DAILY, #30 TAB 5 Refills Prov:VITOR SCHULTZ NP 09/08/24 Reported Medications Dapagliflozin Propanediol (Farxiga) 10 Mg Tab, 1 TAB PO DAILY 09/03/24 Metformin Hydrochloride (Metformin Hcl) 850 Mg Tab, 1 TAB PO BID 09/30/22 Benazepril Hcl (Benazepril Hcl) 40 Mg Tab, 1 TAB PO DAILY 09/30/22 Amlodipine Besylate (Amlodipine Besylate) 10 Mg Tab, 1 TAB PO DAILY 09/30/22 Information Source: Patient Mode of Arrival: EMS Timing: Hours Duration: Since onset Prehospital treatment: None Quality: Burning Vomitus: None Stool: Normal Severity: Moderate Recent: None Recent Hx of: None Pain Location: Epigastric Modifying Factors: Nothing Associated sign and symptoms: Abdominal Pain Past Medical History PAST MEDICAL HISTORY: Anemia, CVA, DM, High Lipids, HTN Surgical History: Denies all surgeries Family History Family History: Family hx of stroke Social History Smoker: Non-Smoker Alcohol: Denies ETOH Use Drugs: Denies Drug Use Lives In: Home Constitutional: denies: chills, diaphoresis, fatigue, fever, malaise, sweats, weakness, others EENTM: denies: blurred vision, double vision, ear bleeding, ear discharge, ear drainage, ear pain, ear ringing, eye pain, eye redness, hearing loss, mouth pain, mouth swelling, nasal discharge, nose bleeding, nose congestion, nose pain, photophobia, tearing, throat pain, throat swelling, voice changes, others Respiratory: denies: cough, hemoptysis, orthopnea, SOB at rest, shortness of breath, SOB with excertion, stridor, wheezing, others Cardiovascular: denies: chest pain, dizzy spells, diaphoresis, Dyspnea on exertion, edema, irregular heart beat, left arm pain, lightheadedness, palpitations, PND, syncope, others Gastrointestinal: reports: abdominal pain; denies: abdomen distended, blood streaked bowels, constipated, diarrhea, dysphagia, difficulty swallowing, hematemesis, melena, nausea, poor appetite, poor fluid intake, rectal bleeding, rectal pain, vomiting, others Genitourinary: reports: frequency; denies: burning, dysuria, flank pain, hematuria, incontinence, penile discharge, penile sore, pain, testicle pain, testicle swelling, urgency, others Neurological: denies: dizziness, fainting, headache, left sided numbness, left sided weakness, numbness, paresthesia, pre-existing deficit, right sided numbness, right sided weakness, seizure, speech problems, tingling, tremors, weakness, others Musculoskeletal: denies: back pain, gout, joint pain, joint swelling, muscle pain, muscle stiffness, neck pain, others Integumetry: denies: bruises, change in color, change in hair/nails, dryness, laceration, lesions, lumps, rash, wounds, others Allergic/Immunocompromised: denies: Difficulty Healing, Frequent Infections, Hives, Itching, others Hematologic/Lymphatic: denies: anemia, blood clots, easy bleeding, easy bruising, swollen glands, others Endocrine: denies: excessive hunger, excessive sweating, excessive thirst, excessive urination, flushing, intolerance to cold, intolerance to heat, unexplained weight gain, unexplained weight loss, others Psychiatric: denies: anxiety, bipolar disorder, depression, hopeless, panic disorder, schizophrenia, sleepless, suicidal, others Physical Exam General Appearance: No Apparent Distress, Normal HEENT: Normal ENT Inspection, Pharynx Normal, TMs Normal Neck: Full Range of Motion, Non-Tender, Normal, Normal Inspection Respiratory: Chest Non-Tender, Lungs Clear, No Accessory Muscle Use, No Respiratory Distress, Normal Breath Sounds Cardiovascular: No Edema, No JVD, No Murmur, No Gallop, Normal Peripheral Pulses, Regular Rate/Rhythm Breast Exam: Deferred Gastrointestinal: No Organomegaly, Non Tender, No Pulsatile Mass, Normal Bowel Sounds, Soft Genitalia: Deferred Pelvic: Deferred Rectal: Deferred Extremities: No calf tenderness, Normal capillary refill, Normal inspection, Normal range of motion, Non-tender, No pedal edema Musculoskeletal : Apperance: Normal Neurologic: Alert, direct marketing manager II-XII nml as Tested, No Motor Deficits, Normal Affect, Normal Mood, No Sensory Deficits Cerebellar Function: Normal Reflexes: Normal Skin: Dry, Normal Color, Warm Lymphatic: No Adenopathy EKG EKG : Pulse Rate (adult): 83 Cardiac Rhythm: NSR Comments Left anterior fascicular block Was a procedure done? Was a procedure done?: No GI differential Dx Differential Diagnosis: Constipation, Diverticular disease, Gastritis/PUD, Gastroenteritis, Pancreatitis, UTI, Urolithiasis, Electrolyte Imbalance, Food Poisoning X-Ray, Labs, Meds, VS Vital Signs Date Time Temp Pulse Resp B/P (MAP) Pulse Ox O2 Delivery O2 Flow Rate FiO2 01/08/25 22:52 83 01/08/25 22:28 83 01/08/25 22:25 98.3 86 16 163/90 (114) 94 98.3 Lab Test 01/08/25 23:17 Range/Units White Blood Count 7.4 4.4-10.8 10^3/uL Red Blood Count 4.63 4.5-5.90 10^6/uL Hemoglobin 13.4 L 13.5-17.5 g/dL Hematocrit 41.0 41.0-53.0 % Mean Corpuscular Volume 88.6 80.0-100.0 fL Mean Corpuscular Hemoglobin 29.0 28.0-32.0 pg Mean Corpuscular Hemoglobin Concent 32.8 32.0-36.0 g/dL Red Cell Distribution Width 16.8 H 11.8-14.3 % Platelet Count 242 140-450 10^3/uL Mean Platelet Volume 8.7 6.9-10.8 fL Neutrophils (%) (Auto) 64.0 37.0-80.0 % Lymphocytes (%) (Auto) 27.9 10.0-50.0 % Monocytes (%) (Auto) 7.7 0.0-12.0 % Eosinophils (%) (Auto) 0.2 0.0-7.0 % Basophils (%) (Auto) 0.2 0.0-2.0 % Neutrophils # (Auto) 4.7 1.6-8.6 10 ^3/uL Lymphocytes # (Auto) 2.1 0.4-5.4 10 ^3/uL Monocytes # (Auto) 0.6 0-1.3 10 ^3/uL Eosinophils # (Auto) 0 0-0.8 10 ^3/uL Basophils # (Auto) 0 0-0.2 10 ^3/uL Nucleated Red Blood Cells 0.0 % Sodium Level 139 136-145 mmol/L Potassium Level 4.8 3.5-5.1 mmol/L Chloride Level 106 98-107 mmol/L Carbon Dioxide Level 24 20-31 mmol/L Anion Gap 9 5-15 Blood Urea Nitrogen 27 H 9-23 mg/dL Creatinine 2.12 H 0.700-1.30 mg/dL Glomerular Filtration Rate Calc 33 >90 mL/min BUN/Creatinine Ratio 12.7 10.0-20.0 Serum Glucose 313 H 74-106 mg/dL Calcium Level 10.4 8.7-10.4 mg/dL Total Bilirubin 0.3 0.2-1.0 mg/dL Aspartate Amino Transferase (AST) 18 13-40 U/L Alanine Aminotransferase (ALT) 30 7-40 U/L Alkaline Phosphatase 93 46-116 U/L Troponin I High Sensitivity 4 </=54 ng/L Total Protein 7.6 5.7-8.2 g/dL Albumin 4.5 3.2-4.8 g/dL Lipase 458 H 12-53 U/L CHEST RADIOGRAPH Indication: abdominal pain Technique: Single frontal view of the chest was obtained COMPARISON: XY CHEST XRAY 1 VIEW on DOS: 12/10/24, FINDINGS: Lines and Tubes: None Lungs: Mild bibasilar subsegmental atelectasis. Otherwise unremarkable. Pleura: No effusion.No pneumothorax. Cardiomediastinal contours: Unremarkable Bones: Unremarkable IMPRESSION: Mild bibasilar subsegmental atelectasis. Otherwise unremarkable. Time of 1ST Reevaluation: 22:46 Reevaluation 1ST: Unchanged Patient Education/Counseling: Diagnosis, Treatment Family Education/Counseling: No Family Present Departure 1 Departure Time of Disposition: 02:17 (Patient presented with abdominal pain that was concerning for possible appendicits, gastritis, cholecystitis, colitis, gastroenteritis, sbo, or orther possible surgical emergency. Data: 1. I ordered and reviewed the result of at least 3 labs including a CBC, BMP, and Urinalysis. 2. I independently interpreted the following tests: CT Abdoment and Pelvis is concerning for benign abdomen .Risk:This patient has a high risk of morbidity due to further diagnostic testing or treatment and may suffer from an acute abdominal process disorder. Workup reveals acute pancreatitis and patient should be admitted for further workup. and possible expert consultation. ) Impression: Primary Impression: Acute pancreatitis Qualified Codes: K85.90 - Acute pancreatitis without necrosis or infection, unspecified Disposition: ADMITTED INPATIENT Admit to: Med Surg Condition: Serious Critical Care Note Critical Care Time?: Yes Critical care comment: Intractable abdominal pain Authorized and Performed by: Petey You MD Total critical care time: Approximately 43 minutes Due to a high probability of clinically significant, life threatening deterioration, the patient required my highest level of preparedness to intervene emergently and I personally spent this critical care time directly and personally managing the patient. This critical care time included obtaining a history; examining the patient; pulse oximetry; ordering and review of studies; arranging urgent treatment with development of a management plan; evaluation of patient's response to treatment; frequent reassessment; and, discussions with other providers. This critical care time was performed to assess and manage the high probability of imminent, life-threatening deterioration that could result in multi-organ failure. It was exclusive of separately billable procedures and treating other patients and teaching time. Please see my other sections and the rest of the note for further information on patient assessment and treatment. Stability Stability form required: No Heart Score Heart Score: Heart Score Response (Comments) Value History N/A 0 EKG N/A 0 Age N/A 0 Risk Factors N/A 0 Troponin N/A 0 Total 0 I personally scribed for PETEY YOU MD ([email or web address]) on 01/08/25 at 22:52. Electronically submitted by Mahendra Sue ([email or web address]). I personally scribed for PETEY YOU MD ([email or web address]) on 01/08/25 at 23:44. Cony ctronically submitted by Mahendra Sue ([email or web address]). PETEY YOU MD Jan 08, 2025 22:52
--- NOTE | 2025-01-08 23:24 | DVH ---
CHEST RADIOGRAPH Indication: abdominal pain Technique: Single frontal view of the chest was obtained COMPARISON: XY CHEST XRAY 1 VIEW on DOS: 12/10/24, FINDINGS: Lines and Tubes: None Lungs: Mild bibasilar subsegmental atelectasis. Otherwise unremarkable. Pleura: No effusion.No pneumothorax. Cardiomediastinal contours: Unremarkable Bones: Unremarkable IMPRESSION: Mild bibasilar subsegmental atelectasis. Otherwise unremarkable.
[2025-01-08 23:30] LABS: Basophils # (auto) 0 10 ^3/uL (0-0.2); Basophils % (auto) 0.2 % (0.0-2.0); Eosinophils # (auto) 0 10 ^3/uL (0-0.8); Eosinophils % (auto) 0.2 % (0.0-7.0); Hemoglobin 13.4 g/dL (13.5-17.5); Lymphocytes # (auto) 2.1 10 ^3/uL (0.4-5.4); Lymphocytes % (auto) 27.9 % (10.0-50.0); Mean Corpuscular Hgb Conc. 32.8 g/dL (32.0-36.0); Mean Corpuscular Volume 88.6 fL (80.0-100.0); Monocytes # (auto) 0.6 10 ^3/uL (0-1.3); Monocytes % (auto) 7.7 % (0.0-12.0); Neutrophils # (auto) 4.7 10 ^3/uL (1.6-8.6); Platelet Count (auto) 242 10^3/uL (140-450); Red Blood Cells 4.63 10^6/uL (4.5-5.90); Red Cell Distribution Width 16.8 % (11.8-14.3); White Blood Cell 7.4 10^3/uL (4.4-10.8)
[2025-01-08 23:51] LABS: Alanine Aminotransferase 30 U/L (7-40); Albumin 4.5 g/dL (3.2-4.8); Alkaline Phosphatase 93 U/L (46-116); Anion Gap 9 (5-15); Aspartate Aminotransferase 18 U/L (13-40); BUN/Creatinine Ratio 12.7 (10.0-20.0); Calcium 10.4 mg/dL (8.7-10.4); Carbon Dioxide 24 mmol/L (20-31); Chloride 106 mmol/L (98-107); Potassium 4.8 mmol/L (3.5-5.1); Sodium 139 mmol/L (136-145); Total Protein 7.6 g/dL (5.7-8.2)
[2025-01-08 23:53] LABS: Bilirubin, Total 0.3 mg/dL (0.2-1.0); Blood Urea Nitrogen 27 mg/dL (9-23); Glucose 313 mg/dL (74-106); Lipase 458 U/L (12-53)
--- NOTE | 2025-01-09 01:52 | DVH ---
Exam: CT CT AB PEL WO CON-NO ORAL OR IV History: abdominal pain, pancreatitis Comparison Study: CT CT AB PEL WO CON-NO ORAL OR IV on DOS: 08/03/23, CT ABD PELVIS WO CONTRAST on D OS: 09/30/22 Technique: Multidetector spiral CT of the abdomen was performed from lung bases to pubic symphysis. Imaging was performed without IV contrast. Axial, coronal and sagittal multiplanar reformats were ob tained from the axial data set by the technologist. Radiation Dose : 1. Abdomen/Pelvis: CTDIvol mGy, DLP mGy*cm. Findings: Evaluation of solid organs is limited due to lack of intravenous contrast use. Lung Bases: No abnormality demonstrated. Liver: Liver is normal in size. No focal lesions noted. Gallbladder and Biliary Tree: No abnormality demonstrated. Spleen: Normal in size. Probable punctate calcified granulomas. Pancreas: No abnormality demonstrated. Adrenal Glands: No abnormality demonstrated. Kidneys: No abnormality demonstrated. Bladder: Grossly unremarkable for degree of distention. Bowel: Large hiatal hernia present; stomach otherwise appears grossly unremarkable. No abnormal dila erica or thick-walled loops of large or small bowel noted. Moderate amount of stool present in the larg e bowel. Mild colonic diverticulosis without evidence of acute diverticulitis. Appendix appears unrem arkable. Ascites: Absent Lymphadenopathy: No evidence of lymphadenopathy. Abdominal Wall and Mesentery: Unremarkable. Vasculature: Unremarkable. Pelvic Organs: Unremarkable Musculoskeletal: No bony lesions or fracture. IMPRESSION: No acute abnormality identified. Radiation optimization: All CT scans at this facility use at least one of these dose optimization demetrio hniques: automated exposure control mA and/or kV adjustment per patient size (includes targeted exam s where dose is matched to clinical indication) or iterative reconstruction.
[2025-01-09] MEDS ORDERED: DEXTROSE (50%) 50ML SYRG IV PRN (04:30)
[2025-01-09] MEDS: amLODIPine BESYLATE 5 MG TAB PO ONE (04:47)
[2025-01-09] MEDS: SODIUM CHLORIDE 0.9% 1,000 ML IV SCH (04:48)
[2025-01-09] MEDS: HYDROcodone-ACET 5/325MG TAB PO PRN (04:56)
--- NOTE | 2025-01-09 04:57 | DVHHP2 ---
History of Present Illness Reason for Visit: Acute pancreatitis History of Present Illness The patient is a 69-year-old male with past medical history of anemia, CBC, DM, hypertension, and hyperlipidemia who presented to [facility] ED with complaint of abdominal pain. Patient reports symptoms progressively get worse with burning epigastric abdominal pain, constant, rating 7/10 numeric scale, getting worse that prompted this visit. Patient was seen and evaluated in the ED, laboratory data shows WBC 7.4, platelets 242, sodium 139, potassium 4.8, BUN 27, creatinine 2.12, GFR 33, glucose 313, troponin 4, lipase 458, blood pressure 172/91 trending down to 152/92, heart rate 92, temperature 98.3 F, O2 saturation 97% on room air. Abdomen/pelvis CT showed no acute abnormality identified. Please see medication orders section in the computer. On my assessment, patient denied chest pain, headache, no dizziness, no shortness of breaths, no nausea, vomiting, no fever, no chills. Patient was admitted for further evaluation and medical management. Past Medical History Anemia, CVA, DM, High Lipids, HTN Past Surgical History Denies all surgeries Family History Reviewed, noncontributory to the management of this case. Past Social History The patient lives at home, denies smoking, alcohol or illicit drugs abuse. Review of Systems Constitutional: No: Fever, Chills, Sweats, Weakness, Malaise, Other Eyes: No: Pain, Vision change, Conjunctivae inflammation, Eyelid inflammation, Other, Redness ENT: No: Ear pain, Ear discharge, Nose pain, Nose discharge, Nose congestion, Mouth pain, Mouth swelling, Throat pain, Throat swelling, Other Respiratory: No: Cough, Dry, Shortness of breath, SOB with excertion, Wheezing, Hemoptysis, Pleuritic Pain, Sputum, Wheezing, Other Cardiovascular: No: Chest Pain, Palpitations, Orthopnea, Paroxysmal Noc. Dyspnea, Edema, Lt Headedness, Other Gastrointestinal: Abdominal Pain; No: Nausea, Vomiting, Diarrhea, Constipation, Melena, Hematochezia, Other Genitourinary: No Dysuria; Frequency; No Incontinence, No Hematuria, No Retention, No Other Musculoskeletal: No: other, neck pain, shoulder pain, arm pain, back pain, hand pain, leg pain, foot pain Skin: No: Rash, Lesions, Jaundice, Bruising, Other Neurological: No: Weakness, Numbness, Incoordination, Change in speech, Confusion, Seizures, Other Allergies: Coded Allergies: NO KNOWN ALLERGIES (Unverified , 06/03/16) Medications Current Medications Medications Dose Ordered Sig/Abilio Route Start Time Stop Time Status Last Admin Dose Admin Pantoprazole Sodium 40 mg DAILY IV 01/09/25 10:00 Amlodipine Besylate 5 mg DAILY PO 01/10/25 10:00 Hydralazine HCl 10 mg Q6HP PRN IV 01/09/25 04:30 Diagnostic Test (Pha) 1 strip IQ4HR 01/09/25 08:00 Insulin Human Regular IQ4HR SC 01/09/25 08:00 Dextrose 50 ml UD PRN IV 01/09/25 04:30 Sodium Chloride 1,000 ml @ 120 mls/hr Q8H20M IV 01/09/25 04:30 01/09/25 04:48 120 MLS/HR Acetaminophen/ Hydrocodone Bitart 1 tab Q4HP PRN PO 01/09/25 04:30 01/09/25 04:56 1 TAB Ondansetron HCl 4 mg Q4HP PRN IV 01/09/25 04:30 Docusate Sodium 100 mg BIDPRN PRN PO 01/09/25 04:30 Acetaminophen 650 mg Q6HP PRN PO 01/09/25 04:30 Morphine Sulfate 2 mg Q4HPRN PRN IV 01/09/25 04:30 Metoprolol Tartrate 25 mg BID PO 01/09/25 10:00 Exam Vital Signs Vital Signs Date Time Temp Pulse Resp B/P (MAP) Pulse Ox O2 Delivery O2 Flow Rate FiO2 01/09/25 04:47 156/80 01/09/25 04:00 74 01/09/25 02:40 16 97 Room Air 01/09/25 02:40 98.3 98.3 General Appearance: Alert, Oriented X3, Cooperative, No acute distress HEENT: Atraumatic, PERRLA, EOMI, Mucous membr. moist/pink Respiratory: Clear to auscultation, Normal air movement Cardiovascular: Regular rate, Normal S1, Normal S2, No murmurs Abdominal: Normal bowel sounds, Soft, No hepatospenomegaly, No masses, Other (Reports tenderness) Extremities: No clubbing, No cyanosis, No edema, Normal pulses, No tenderness/swelling Skin: No rashes, No breakdown, No significant lesion Neuro: Normal gait, Normal speech, Strength at 5/5 X4 ext, Normal tone, Sensation intact, Cranial nerves 3-12 NL, Reflexes 2+ Psych/Mental Status: Mental status NL, Mood NL Labs/Xrays Labs Test 01/09/25 04:45 01/08/25 23:17 Range/Units White Blood Count 7.4 4.4-10.8 10^3/uL Red Blood Count 4.63 4.5-5.90 10^6/uL Hemoglobin 13.4 L 13.5-17.5 g/dL Hematocrit 41.0 41.0-53.0 % Mean Corpuscular Volume 88.6 80.0-100.0 fL Mean Corpuscular Hemoglobin 29.0 28.0-32.0 pg Mean Corpuscular Hemoglobin Concent 32.8 32.0-36.0 g/dL Red Cell Distribution Width 16.8 H 11.8-14.3 % Platelet Count 242 140-450 10^3/uL Mean Platelet Volume 8.7 6.9-10.8 fL Neutrophils (%) (Auto) 64.0 37.0-80.0 % Lymphocytes (%) (Auto) 27.9 10.0-50.0 % Monocytes (%) (Auto) 7.7 0.0-12.0 % Eosinophils (%) (Auto) 0.2 0.0-7.0 % Basophils (%) (Auto) 0.2 0.0-2.0 % Neutrophils # (Auto) 4.7 1.6-8.6 10 ^3/uL Lymphocytes # (Auto) 2.1 0.4-5.4 10 ^3/uL Monocytes # (Auto) 0.6 0-1.3 10 ^3/uL Eosinophils # (Auto) 0 0-0.8 10 ^3/uL Basophils # (Auto) 0 0-0.2 10 ^3/uL Nucleated Red Blood Cells 0.0 % Sodium Level 139 136-145 mmol/L Potassium Level 4.8 3.5-5.1 mmol/L Chloride Level 106 98-107 mmol/L Carbon Dioxide Level 24 20-31 mmol/L Anion Gap 9 5-15 Blood Urea Nitrogen 27 H 9-23 mg/dL Creatinine 2.12 H 0.700-1.30 mg/dL Glomerular Filtration Rate Calc 33 >90 mL/min BUN/Creatinine Ratio 12.7 10.0-20.0 Serum Glucose 313 H 74-106 mg/dL Calcium Level 10.4 8.7-10.4 mg/dL Total Bilirubin 0.3 0.2-1.0 mg/dL Aspartate Amino Transferase (AST) 18 13-40 U/L Alanine Aminotransferase (ALT) 30 7-40 U/L Alkaline Phosphatase 93 46-116 U/L Troponin I High Sensitivity 4 </=54 ng/L Total Protein 7.6 5.7-8.2 g/dL Albumin 4.5 3.2-4.8 g/dL Lipase 458 H 12-53 U/L PATIENT: MORIS VELÁSQUEZ ACCT: [id number] UNIT: [id number] : 1955 LOC: ER ROOM / BED: / AGE / SEX: 69 / M ADM STATUS: REG ER SERVICE [id number] ORDERING PHYSICIAN: PETEY YOU MD PROCEDURE(s): ABPL - CT AB PEL WO CON-NO ORAL OR IV REASON: abdominal pain, pancreatitis ORDER NUMBER(s): [id number], ACCESSION NUMBER(s): [id number] Exam: CT CT AB PEL WO CON-NO ORAL OR IV History: abdominal pain, pancreatitis Comparison Study: CT CT AB PEL WO CON-NO ORAL OR IV on DOS: 08/03/23, CT ABD PELVIS WO CONTRAST on DOS: 09/30/22 Technique: Multidetector spiral CT of the abdomen was performed from lung bases to pubic symphysis. Imaging was performed without IV contrast. Axial, coronal and sagittal multiplanar reformats were obtained from the axial data set by the technologist. Radiation Dose: 1. Abdomen/Pelvis: CTDIvol mGy, DLP mGy*cm. Findings: Evaluation of solid organs is limited due to lack of intravenous contrast use. Lung Bases: No abnormality demonstrated. Liver: Liver is normal in size. No focal lesions noted. Gallbladder and Biliary Tree: No abnormality demonstrated. Spleen: Normal in size. Probable punctate calcified granulomas. Pancreas: No abnormality demonstrated. Adrenal Glands: No abnormality demonstrated. Kidneys: No abnormality demonstrated. Bladder: Grossly unremarkable for degree of distention. Bowel: Large hiatal hernia present; stomach otherwise appears grossly unremarkable. No abnormal dilated or thick-walled loops of large or small bowel noted. Moderate amount of stool present in the large bowel. Mild colonic diverticulosis without evidence of acute diverticulitis. Appendix appears unremarkable. Ascites: Absent Lymphadenopathy: No evidence of lymphadenopathy. Abdominal Wall and Mesentery: Unremarkable. Vasculature: Unremarkable. Pelvic Organs: Unremarkable Musculoskeletal: No bony lesions or fracture. IMPRESSION: No acute abnormality identified. ORDERING PHYSICIAN: PETEY YOU MD PROCEDURE(s): CXRP - CHEST PORTABLE REASON: abdominal pain ORDER NUMBER(s): [id number], ACCESSION NUMBER(s): [id number] ADDENDUM CHEST RADIOGRAPH Indication: abdominal pain Technique: Single frontal view of the chest was obtained COMPARISON: XY CHEST XRAY 1 VIEW on DOS: 12/10/24, FINDINGS: Lines and Tubes: None Lungs: Minimal bibasilar subsegmental atelectasis. Otherwise unremarkable. Pleura: No effusion.No pneumothorax. Cardiomediastinal contours: Heart size is normal. Probable moderate-sized hiatal hernia. Bones: Unremarkable IMPRESSION: Mild bibasilar subsegmental atelectasis. Probable moderate-sized hiatal hernia. Assessment/Plan Assessment/Plan Acute pancreatitis Acute on chronic renal failure Hypertensive urgency Urinary tract infection Diabetes mellitus with hyperglycemia Acute pancreatitis without necrosis or infection, unspecified Plan 1. Admit to med surge unit 2. Breathing treatment 3. Pain control management 4. IV antibiotic management 5. Management of fluids and electrolytes 6. Consultation for hospitalist 7. Diagnostic test abdomen/pelvis CT 8. DVT prophylaxis-on SCDs 9. Repeat labs CBC, CMP in a.m. 10. Home medication reviewed and reconciled 11. Continue with current medical management 12. Treatment plan discussed with patient and RN. Patient verbalized understanding. Plan discussed with: Patient, Other (RN) My Orders Orders - LILLIAN INFANTE DNP Procedure Category Date Status Time Complete Blood Count LAB 01/09/25 Logged 04:28 Comprehensive LAB 01/09/25 Logged Metabolic Panel 04:28 Pantoprazole PHA 01/09/25 In Process (Protonix) 10:00 Hydralazine Injection PHA 01/09/25 In Process (Apresoline Inject 04:30 Glucose Blood PHA 01/09/25 In Process (Accu-Chek Comfort 08:00 Insulin R (Human) PHA 01/09/25 In Process (Insulin R) 08:00 Dextrose 50% Syringe PHA 01/09/25 In Process 04:30 Allergies KEMAL 01/09/25 In Process 04:28 Code Status CODE 01/09/25 Transmitted 04:28 Sodium Chloride 0.9% PHA 01/09/25 In Process 04:30 Oxygen Per Hour RT 01/09/25 Transmitted 04:28 Hydrocodone-Acet PHA 01/09/25 In Process 5/325mg Tab ([place] 04:30 Ondansetron Hcl PHA 01/09/25 In Process (Zofran) 04:30 Docusate Sodium PHA 01/09/25 In Process Capsule (Colace 04:30 Complete Blood Count LAB 01/10/25 Verified 04:00 Comprehensive LAB 01/10/25 Verified Metabolic Panel 04:00 Condition: Serious KEMAL 01/09/25 In Process 04:28 Acetaminophen Tablet PHA 01/09/25 In Process (Tylenol Tablet) 04:30 Clear Liq Diet DIET 01/09/25 Transmitted Breakfast Bedrest With Bathroom KEMAL 01/09/25 In Process Privileg 04:28 Morphine Sulfate PHA 01/09/25 In Process Injection 04:30 Sequential KEMAL 01/09/25 In Process Compression Device *[facility]. [facility] CONS 01/09/25 Transmitted -[place] 04:28 Metoprolol Tartrate PHA 01/09/25 In Process Tablet (Lopressor Ta 10:00 Amlodipine Tablet PHA 01/10/25 In Process (Norvasc Tablet) 10:00 Admit ADMIT 01/09/25 Verified 04:56 Nitroglycerin PHA 01/09/25 Verified Sublingual (Ntrostat 05:00 Morphine Sulfate PHA 01/09/25 Verified Injection 05:00 Notify Of Changes KEMAL 01/09/25 Verified From Base 04:56 Emergency Dysrhythmia KEMAL 01/09/25 Verified Protocol 04:56 Oxygen By Nasal RT 01/09/25 Verified Cannula 04:56 Problem List: (1) Acute pancreatitis (2) UTI (urinary tract infection) (3) Hypertensive urgency (4) Acute on chronic renal failure (5) Diabetes mellitus with hyperglycemia (6) Acute pancreatitis without necrosis or infection, unspecified Date of Service: Jan 09, 2025 Billing Provider: LILLIAN INFANTE DNP Common Visit Codes: [id number] INP/OBS CARE (HIGH) LILLIAN INFANTE DNP Jan 09, 2025 04:57
[2025-01-09 05:00] VITALS: PULSE 71; RESP 12; O2SAT 97
[2025-01-09] MEDS ORDERED: NITROGLYCERIN 0.4 MG SL TAB SL PRN (05:00)
[2025-01-09] MEDS ORDERED: MORPHINE SULFATE INJ 2 MG/ml SYRG IV PRN (05:00)
[2025-01-09 05:05] LABS: Urine Bacteria MANY /hpf (None Seen); Urine Blood Negative /uL (Negative); Urine Clarity Turbid (Clear); Urine Color Light-Yellow (Yellow); Urine Protein, UAD 2+ (Negative); Urine Specific Gravity 1.026 (1.001-1.035); Urine Squamous Epithelial Cell FEW /hpf (<5); Urine Urobilinogen Normal (Negative); Urine WBC 63 /HPF (0-3); Urine pH 5.5 (5.0-9.0)
[2025-01-09] MEDS: ONDANSETRON HCL 4 MG/2 ML VIAL IV PRN (05:57)
[2025-01-09 06:17] LABS: Basophils # (auto) 0 10 ^3/uL (0-0.2); Basophils % (auto) 0.3 % (0.0-2.0); Eosinophils # (auto) 0 10 ^3/uL (0-0.8); Eosinophils % (auto) 0.3 % (0.0-7.0); Hematocrit 41.6 % (41.0-53.0); Hemoglobin 13.7 g/dL (13.5-17.5); Lymphocytes # (auto) 2.7 10 ^3/uL (0.4-5.4); Lymphocytes % (auto) 31.1 % (10.0-50.0); Mean Corpuscular Hgb Conc. 32.9 g/dL (32.0-36.0); Mean Corpuscular Volume 88.2 fL (80.0-100.0); Monocytes # (auto) 0.8 10 ^3/uL (0-1.3); Monocytes % (auto) 8.8 % (0.0-12.0); Neutrophils # (auto) 5.1 10 ^3/uL (1.6-8.6); Neutrophils % (auto) 59.5 % (37.0-80.0); Platelet Count (auto) 260 10^3/uL (140-450); Red Blood Cells 4.72 10^6/uL (4.5-5.90); Red Cell Distribution Width 16.6 % (11.8-14.3); White Blood Cell 8.6 10^3/uL (4.4-10.8)
[2025-01-09 06:36] LABS: Alanine Aminotransferase 26 U/L (7-40); Albumin 4.6 g/dL (3.2-4.8); Alkaline Phosphatase 88 U/L (46-116); Anion Gap 10 (5-15); Aspartate Aminotransferase 15 U/L (13-40); BUN/Creatinine Ratio 11.1 (10.0-20.0); Bilirubin, Total 0.3 mg/dL (0.2-1.0); Blood Urea Nitrogen 26 mg/dL (9-23); Calcium 10.1 mg/dL (8.7-10.4); Carbon Dioxide 26 mmol/L (20-31); Chloride 103 mmol/L (98-107); Glucose 313 mg/dL (74-106); Potassium 4.5 mmol/L (3.5-5.1); Sodium 139 mmol/L (136-145); Total Protein 7.9 g/dL (5.7-8.2)
--- NOTE | 2025-01-09 07:25 | ECG ---
[facility] Test Date: 2025-01-08 Test Time: 22:28:00 Pat Name: [facility] [employer] Department: ER Room: 0223 Gender: M Director Of Collections: ER : 1955 Requested By: PETEY YOU Order Number: [id number] Reading MD: Daren De Los Santos Measurements Intervals [place] Rate: 83 P: 69 GA: 153 QRS: -51 QRSD: 88 T: 67 QT: 378 QTc: 445 Interpretive Statements Sinus rhythm Left anterior fascicular block Borderline ST elevation, anterior leads Baseline wander in lead(s) II,aVR Electronically Signed On 01-10-2025 17:44:36 PDT by Daren De Los Santos Please click the below link to view image of tracing.
[2025-01-09] MEDS: ACCU-CHEK COMFORT CURVE STRIP VI SCH (08:00)
[2025-01-09 08:40] VITALS: PULSE 103; RESP 12; O2SAT 95
--- NOTE | 2025-01-09 09:31 | DVHINCON2 ---
Date of service: Jan 09, 2025 Referring Physician Sheldon Coulter, nurse practitioner Reason for Consultation Acute kidney injury History of Present Illness Patient is a 69-year-old male with past medical history significant for DM, High Lipids, HTN, Anemia, and CVA is admitted for abdominal pain associated with nausea vomiting. On admission patient found to have elevated BUN and creatinine nephrology is consulted for acute kidney injury Past Medical History Diabetes mellitus, hypertension, hyperlipidemia, CVA Past Surgical History Patient denies Allergies: Coded Allergies: NO KNOWN ALLERGIES (Unverified , 06/03/16) Home Meds Active Scripts Ciprofloxacin Hcl (Cipro) 500 Mg Tab, 1 TAB PO BID, #14 TAB Prov:RUDY PALOMINO MD 01/05/25 Sucralfate (CARAFATE) 1 Gm Tab, 1 GM OR QIDACHS for 30 Days, #120 TAB Prov:VITOR SCHULTZ NP 09/08/24 Pantoprazole Sodium Sesquihydr (Protonix) 40 Mg Tab, 40 MG PO DAILY, #30 TAB Prov:VITOR SCHULTZ NP 09/08/24 Clonidine Hydrochloride (Clonidine Hcl) 0.2 Mg Tab, 1 TAB PO BID, #60 TAB 5 Refills Prov:VITOR SCHULTZ NP 09/08/24 Atorvastatin Calcium (ATORVASTATIN CALCIUM) 80 Mg Tab, 1 TAB PO DAILY, #30 TAB 5 Refills Prov:VITOR SCHULTZ NP 09/08/24 Reported Medications Dapagliflozin Propanediol (Farxiga) 10 Mg Tab, 1 TAB PO DAILY 09/03/24 Metformin Hydrochloride (Metformin Hcl) 850 Mg Tab, 1 TAB PO BID 09/30/22 Benazepril Hcl (Benazepril Hcl) 40 Mg Tab, 1 TAB PO DAILY 09/30/22 Amlodipine Besylate (Amlodipine Besylate) 10 Mg Tab, 1 TAB PO DAILY 09/30/22 Current Medications Current Medications Medications (Trade) Dose Ordered Sig/Abilio Route PRN Reason Start Time Stop Time Status Last Admin Pantoprazole Sodium (Protonix) 40 mg DAILY IV 01/09/25 10:00 01/09/25 11:06 Amlodipine Besylate (Norvasc Tablet) 5 mg DAILY PO 01/10/25 10:00 Hydralazine HCl (Apresoline Injection) 10 mg Q6HP PRN IV SBP>150 01/09/25 04:30 01/09/25 11:06 Diagnostic Test (Pha) (Accu-Chek Comfort Curve T) 1 strip IQ4HR 01/09/25 08:00 01/09/25 08:00 Insulin Human Regular (InsuLIN R) IQ4HR SC 01/09/25 08:00 01/09/25 09:41 Dextrose 50 ml UD PRN IV Blood Sugar LESS THAN 60 01/09/25 04:30 Sodium Chloride 1,000 ml @ 120 mls/hr Q8H20M IV 01/09/25 04:30 01/09/25 04:48 Acetaminophen/ Hydrocodone Bitart ([place] 5/325MG Tab) 1 tab Q4HP PRN PO MODERATE PAIN (4-6 PAIN SCALE) 01/09/25 04:30 01/09/25 05:56 Ondansetron HCl (Zofran) 4 mg Q4HP PRN IV NAUSEA / VOMITING 01/09/25 04:30 01/09/25 10:27 Docusate Sodium (Colace Capsule) 100 mg BIDPRN PRN PO FOR CONSTIPATION 01/09/25 04:30 Acetaminophen (Tylenol Tablet) 650 mg Q6HP PRN PO PAIN SCALE 1-3 OR TEMP>100.4 01/09/25 04:30 Morphine Sulfate 2 mg Q4HPRN PRN IV SEVERE PAIN (7-10 PAIN SCALE) 01/09/25 04:30 01/09/25 10:27 Metoprolol Tartrate (Lopressor Tablet) 25 mg BID PO 01/09/25 10:00 01/09/25 11:05 Nitroglycerin (Ntrostat Sublingual) 0.4 mg Q5MINP PRN SL FOR CHEST PAIN 01/09/25 05:00 Morphine Sulfate 2 mg Q30M PRN IV FOR CHEST PAIN 01/09/25 05:00 Ceftriaxone Sodium 50 ml @ 100 mls/hr DAILY@09 IV 01/10/25 09:00 Family History: Cardiovascular disease G8 BROTHER Cerebrovascular accident (CVA) G8 MOTHER FH: heart failure G8 FATHER Hypertension G8 MOTHER Review of Systems All 12 item review of systems reviewed with the patient nonsignificant except what is mentioned in the history of present illness H&P Exam Vital Signs/I&O Vital Sign Date Time Temp Pulse Resp B/P (MAP) Pulse Ox O2 Delivery O2 Flow Rate FiO2 01/09/25 11:10 108 18 198/117 01/09/25 08:40 95 Room Air* 0 21 01/09/25 08:00 98.3 98.3 Intake and Output 01/08/25 01/09/25 19:00 07:00 Intake Total 240 ml Balance 240 ml Intake IV Total 240 ml Physical Exam Patient lying comfortably in bed Lungs clear to auscultation bilaterally Cardiac exam regular rate and rhythm GI epigastric guarding, + bowel sounds normal Extremity no clubbing cyanosis or edema Neuro patient is awake and alert on Labs/Diagnostic Data Labs/Diagnostic Data Laboratory Tests Test 01/09/25 05:55 01/09/25 05:50 01/09/25 04:45 01/08/25 23:17 Range/Units Phosphorus Level 4.0 2.4-5.1 mg/dL Magnesium Level 2.7 H 1.6-2.6 mg/dL White Blood Count 8.6 7.4 4.4-10.8 10^3/uL Red Blood Count 4.72 4.63 4.5-5.90 10^6/uL Hemoglobin 13.7 13.4 L 13.5-17.5 g/dL Hematocrit 41.6 41.0 41.0-53.0 % Mean Corpuscular Volume 88.2 88.6 80.0-100.0 fL Mean Corpuscular Hemoglobin 29.0 29.0 28.0-32.0 pg Mean Corpuscular Hemoglobin Concent 32.9 32.8 32.0-36.0 g/dL Red Cell Distribution Width 16.6 H 16.8 H 11.8-14.3 % Platelet Count 260 242 140-450 10^3/uL Mean Platelet Volume 8.9 8.7 6.9-10.8 fL Neutrophils (%) (Auto) 59.5 64.0 37.0-80.0 % Lymphocytes (%) (Auto) 31.1 27.9 10.0-50.0 % Monocytes (%) (Auto) 8.8 7.7 0.0-12.0 % Eosinophils (%) (Auto) 0.3 0.2 0.0-7.0 % Basophils (%) (Auto) 0.3 0.2 0.0-2.0 % Neutrophils # (Auto) 5.1 4.7 1.6-8.6 10 ^3/uL Lymphocytes # (Auto) 2.7 2.1 0.4-5.4 10 ^3/uL Monocytes # (Auto) 0.8 0.6 0-1.3 10 ^3/uL Eosinophils # (Auto) 0 0 0-0.8 10 ^3/uL Basophils # (Auto) 0 0 0-0.2 10 ^3/uL Nucleated Red Blood Cells 0.0 0.0 % Sodium Level 139 139 136-145 mmol/L Potassium Level 4.5 4.8 3.5-5.1 mmol/L Chloride Level 103 106 98-107 mmol/L Carbon Dioxide Level 26 24 20-31 mmol/L Anion Gap 10 9 5-15 Blood Urea Nitrogen 26 H 27 H 9-23 mg/dL Creatinine 2.35 H 2.12 H 0.700-1.30 mg/dL Glomerular Filtration Rate Calc 29 33 >90 mL/min BUN/Creatinine Ratio 11.1 12.7 10.0-20.0 Serum Glucose 313 H 313 H 74-106 mg/dL Hemoglobin A1c 7.8 H <5.7 % A1C Calcium Level 10.1 10.4 8.7-10.4 mg/dL Total Bilirubin 0.3 0.3 0.2-1.0 mg/dL Aspartate Amino Transferase (AST) 15 18 13-40 U/L Alanine Aminotransferase (ALT) 26 30 7-40 U/L Alkaline Phosphatase 88 93 46-116 U/L Total Protein 7.9 7.6 5.7-8.2 g/dL Albumin 4.6 4.5 3.2-4.8 g/dL Vitamin D 25-Hydroxy 16.3 L 30.0-100 ng/mL Parathyroid Hormone (Intact) 155.3 H 18.4-80.1 pg/mL Urine Color Light-yellow Yellow Urine Clarity Turbid H Clear Urine pH 5.5 5.0-9.0 Urine Specific [place] 1.026 1.001-1.035 Urine Protein 2+ H Negative Urine Ketones Negative Negative Urine Blood Negative Negative /uL Urine Nitrite Negative Negative Urine Bilirubin Negative Negative Urine Urobilinogen Normal Negative mg/dL Urine Leukocyte Esterase 1+ Negative /uL Urine RBC 2 0 - 3 /hpf Urine Microscopic WBC 63 H 0-3 /HPF Urine Squamous Epithelial Cells Few <5 /hpf Urine Bacteria Many H None Seen /hpf Urine Creatinine 107.76 30.0-125.0 mg/dL Urine Protein/Creatinine Ratio 2.28 Urine Sodium 21 L 40-220 mmol/L Urine Glucose 4+ H Normal mg/dL Urine Total Protein 245.2 H 1-14 mg/dL Troponin I High Sensitivity 4 </=54 ng/L Lipase 458 H 12-53 U/L Assessment Acute kidney injury superimposed Chronic Kidney Disease secondary hemodynamic mediated Diabetes mellitus type 2 Hyperglycemia Hypotension Acute pancreatitis Proteinuria likely underlying diabetic nephropathy Recommendations Closely monitor fluid and electrolytes Avoid nephrotoxic medications Strict I&Os Check urine electrolytes and protein excretion Kidneys reported within normal limit on CT scan Blood pressure control Insulin sliding scale GI consult We will continue to follow Patient seen and examined by myself in the ER. I discussed my plan of care with the patient and primary nurse at the bedside I would like to thank Sheldon for the consult, will follow up Plan discussed with: Patient LAVELLE CASTELLON MD Jan 09, 2025 09:31
[2025-01-09] MEDS: cefTRIAXone 1GM/50ML D5W 50 ML IV ONE (09:38)
[2025-01-09] MEDS: InsuLIN REG 1unit/0.01ml Soln (100units/ml) SC SCH (09:41)
[2025-01-09 09:57] LABS: Creatinine, Urine 107.76 mg/dL (30.0-125.0)
[2025-01-09 09:58] LABS: Protein, Urine 245.2 mg/dL (1-14); Urine Protein/Creatinine Ratio 2.28
[2025-01-09 10:00] LABS: Magnesium 2.7 mg/dL (1.6-2.6)
[2025-01-09] MEDS: MORPHINE SULFATE INJ 2 MG/ml SYRG IV PRN (10:27)
[2025-01-09] MEDS: METOPROLOL TARTRATE 25 MG TAB PO SCH (11:05)
[2025-01-09] MEDS: PANTOPRAZOLE 40 MG/10 ML VIAL INJ IV SCH (11:06)
[2025-01-09] MEDS: hydrALAZINE HCL 20 MG/ML VL IV PRN (11:06)
[2025-01-09] MEDS: LABETALOL HCL 20 MG/4 ML VL IV PRN (15:22)
[2025-01-09 20:00] VITALS: PULSE 62; RESP 16
[2025-01-09] MEDS: ACETAMINOPHEN 325 MG TAB PO PRN (20:31)
[2025-01-09 21:19] VITALS: BP 160/96; PULSE 62; RESP 19; TEMP 99.9; O2SAT 94
[2025-01-10] VITALS (8 sets, daily range): BP systolic 153–204; BP diastolic 83–115; PULSE 72–108; RESP 18–19; TEMP 98.2–99.8; O2SAT 93–97
[2025-01-10 07:38] LABS: Basophils # (auto) 0 10 ^3/uL (0-0.2); Basophils % (auto) 0.2 % (0.0-2.0); Eosinophils # (auto) 0 10 ^3/uL (0-0.8); Hemoglobin 13.2 g/dL (13.5-17.5); Lymphocytes # (auto) 1.6 10 ^3/uL (0.4-5.4); Lymphocytes % (auto) 12.9 % (10.0-50.0); Mean Corpuscular Hemoglobin 29.1 pg (28.0-32.0); Mean Corpuscular Hgb Conc. 32.3 g/dL (32.0-36.0); Mean Corpuscular Volume 90.1 fL (80.0-100.0); Monocytes % (auto) 8.1 % (0.0-12.0); Neutrophils % (auto) 78.8 % (37.0-80.0); Platelet Count (auto) 247 10^3/uL (140-450); Red Blood Cells 4.55 10^6/uL (4.5-5.90); Red Cell Distribution Width 16.7 % (11.8-14.3); White Blood Cell 12.6 10^3/uL (4.4-10.8)
[2025-01-10 07:56] LABS: Alanine Aminotransferase 21 U/L (7-40); Albumin 4.4 g/dL (3.2-4.8); Alkaline Phosphatase 74 U/L (46-116); Anion Gap 14 (5-15); Aspartate Aminotransferase 24 U/L (13-40); BUN/Creatinine Ratio 11.7 (10.0-20.0); Bilirubin, Total 0.4 mg/dL (0.2-1.0); Potassium 4.7 mmol/L (3.5-5.1); Sodium 145 mmol/L (136-145); Total Protein 7.5 g/dL (5.7-8.2)
[2025-01-10 08:01] LABS: Blood Urea Nitrogen 23 mg/dL (9-23); Carbon Dioxide 19 mmol/L (20-31); Chloride 112 mmol/L (98-107); Glucose 210 mg/dL (74-106)
--- NOTE | 2025-01-10 09:25 | DVHPN2 ---
Progress Note Date Seen: Jan 10, 2025 Medical Necessity Reason Pt with a Central, PICC or Fol: No Subjective Review of Systems: GI:Abnormal Other Systems: Patient seen and examined by myself today in follow-up Objective vital signs Vital Sign Date Time Temp Pulse Resp B/P (MAP) Pulse Ox O2 Delivery O2 Flow Rate FiO2 01/10/25 08:10 109 198/101 01/10/25 05:13 99.1 19 95 99.1 01/09/25 20:00 Room Air* 0 21 Total Intake and Output 01/09/25 01/09/25 01/10/25 15:00 23:00 07:00 Intake Total 1010 ml 120 ml Output Total 140 ml Balance 1010 ml -20 ml medications Current Medications Medications Dose Ordered Sig/Abilio Route Start Time Stop Time Status Last Admin Dose Admin Pantoprazole Sodium 40 mg DAILY IV 01/09/25 10:00 01/09/25 11:06 40 MG Amlodipine Besylate 5 mg DAILY PO 01/10/25 10:00 Hydralazine HCl 10 mg Q6HP PRN IV 01/09/25 04:30 01/10/25 01:14 10 MG Diagnostic Test (Pha) 1 strip IQ4HR 01/09/25 08:00 01/10/25 03:32 1 STRIP Insulin Human Regular IQ4HR SC 01/09/25 08:00 01/10/25 03:34 3 UNITS Dextrose 50 ml UD PRN IV 01/09/25 04:30 Sodium Chloride 1,000 ml @ 120 mls/hr Q8H20M IV 01/09/25 04:30 01/10/25 05:42 120 MLS/HR Acetaminophen/ Hydrocodone Bitart 1 tab Q4HP PRN PO 01/09/25 04:30 01/09/25 05:56 1 TAB Ondansetron HCl 4 mg Q4HP PRN IV 01/09/25 04:30 01/09/25 14:05 4 MG Docusate Sodium 100 mg BIDPRN PRN PO 01/09/25 04:30 Acetaminophen 650 mg Q6HP PRN PO 01/09/25 04:30 01/09/25 20:31 650 MG Morphine Sulfate 2 mg Q4HPRN PRN IV 01/09/25 04:30 01/10/25 04:40 2 MG Metoprolol Tartrate 25 mg BID PO 01/09/25 10:00 01/09/25 20:32 25 MG Nitroglycerin 0.4 mg Q5MINP PRN SL 01/09/25 05:00 Morphine Sulfate 2 mg Q30M PRN IV 01/09/25 05:00 Ceftriaxone Sodium 50 ml @ 100 mls/hr DAILY@09 IV 01/10/25 09:00 Labetalol HCl 20 mg Q4HR PRN IV 01/09/25 15:15 01/10/25 08:10 20 MG Examination: LUNGS:Normal, CVS:Normal, MSK:Normal laboratory and microbiology Laboratory Tests 01/10/25 07:28 Test 01/10/25 07:28 Range/Units Serum Glucose 210 #H 74-106 mg/dL Problem List/Assessment/Plan Problem List/Assessment/Plan Acute kidney injury superimposed Chronic Kidney Disease secondary hemodynamic mediated, FeNa <1% Diabetes mellitus type 2 Hyperglycemia Hypotension Acute pancreatitis Proteinuria likely underlying diabetic nephropathy, UPCR 2.2 Recommendations Kidney function slightly improving No urine output charted Strict I&Os Kidneys reported within normal limit on CT scan Blood pressure control Insulin sliding scale GI consult We will continue to follow Plan discussed with: Patient LAVELLE CASTELLON MD Jan 10, 2025 09:25
[2025-01-10] MEDS: amLODIPine BESYLATE 5 MG TAB PO SCH (09:46)
[2025-01-10] MEDS: cefTRIAXone 1GM/50ML D5W 50 ML IV SCH (11:01)
--- NOTE | 2025-01-10 14:46 | DVHINCON2 ---
Date of service: Jan 10, 2025 Referring Physician Juan Francisco Reason for Consultation Abdominal pain History of Present Illness The patient is a 69-year-old male with a past medical history significant for diabetes hypertension, hyperlipidemia, history of CVA, admitted with abdominal pain, without nausea or vomiting. He is noted to have mild pancreatitis by enzymes however no significant findings on CT scan. Patient complains of diffuse abdominal pain. Sharp in nature with no radiation. He denies any hematemesis, he denies any melena. GI consultation was obtained for evaluation. Patient noted to have acute on chronic kidney injury. He denies prior history. Patient underwent endoscopy in August of 2024 showing a large hiatal hernia with gastritis. Past Medical History 1. Hypertension 2. Hyperlipidemia 3. History of CVA 4. Diabetes 5. History of GI bleeding with large hiatal hernia seen Past Surgical History CLAUDY Cystoscopy EGD Family History: Cardiovascular disease G8 BROTHER Cerebrovascular accident (CVA) G8 MOTHER FH: heart failure G8 FATHER Hypertension G8 MOTHER Allergies: Coded Allergies: NO KNOWN ALLERGIES (Unverified , 06/03/16) Home Meds Active Scripts Ciprofloxacin Hcl (Cipro) 500 Mg Tab, 1 TAB PO BID, #14 TAB Prov:RUDY PALOMINO MD 01/05/25 Sucralfate (CARAFATE) 1 Gm Tab, 1 GM OR QIDACHS for 30 Days, #120 TAB Prov:VITOR SCHULTZ NP 09/08/24 Pantoprazole Sodium Sesquihydr (Protonix) 40 Mg Tab, 40 MG PO DAILY, #30 TAB Prov:VITOR SCHULTZ NP 09/08/24 Clonidine Hydrochloride (Clonidine Hcl) 0.2 Mg Tab, 1 TAB PO BID, #60 TAB 5 Refills Prov:VITOR SCHULTZ NP 09/08/24 Atorvastatin Calcium (ATORVASTATIN CALCIUM) 80 Mg Tab, 1 TAB PO DAILY, #30 TAB 5 Refills Prov:VITOR SCHULTZ NP 09/08/24 Reported Medications Dapagliflozin Propanediol (Farxiga) 10 Mg Tab, 1 TAB PO DAILY 09/03/24 Benazepril Hcl (Benazepril Hcl) 40 Mg Tab, 1 TAB PO DAILY 09/30/22 Amlodipine Besylate (Amlodipine Besylate) 10 Mg Tab, 1 TAB PO DAILY 09/30/22 Discontinued Reported Medications Metformin Hydrochloride (Metformin Hcl) 850 Mg Tab, 1 TAB PO BID 09/30/22 Current Medications Current Medications Medications (Trade) Dose Ordered Sig/Abilio Route PRN Reason Start Time Stop Time Status Last Admin Amlodipine Besylate (Norvasc Tablet) 5 mg DAILY PO 01/10/25 10:00 01/10/25 09:46 Ceftriaxone Sodium 50 ml @ 100 mls/hr DAILY@09 IV 01/10/25 09:00 01/10/25 11:01 Labetalol HCl (Labetalol HCl) 20 mg Q4HR PRN IV SBP>180 01/09/25 15:15 01/10/25 08:10 Review of Systems 12 point review of systems as per HPI History of CVA History of acute on chronic kidney disease History of GERD History of hiatal hernia History of cystitis History of GI bleed Vital Signs Vital Signs Date Time Temp Pulse Resp B/P (MAP) Pulse Ox O2 Delivery O2 Flow Rate FiO2 01/10/25 12:57 98.2 89 18 187/115 (139) 97 98.2 01/09/25 20:00 Room Air* 0 21 Physical Exam General: Alert oriented male lying in bed HEENT: NC/AT EOMI PERRLA O/P clear Heart: Regular rate and rhythm Abdomen: Soft non distended, mild epigastric tenderness to palpation Extremity: No clubbing cyanosis or edema Labs/Diagnostic Data Labs Test 01/10/25 13:00 01/10/25 07:28 01/09/25 05:55 01/09/25 05:50 Range/Units POC Glucose 324 H 70-106 mg/dl White Blood Count 12.6 #H 4.4-10.8 10^3/uL Red Blood Count 4.55 4.5-5.90 10^6/uL Hemoglobin 13.2 L 13.5-17.5 g/dL Hematocrit 41.0 41.0-53.0 % Mean Corpuscular Volume 90.1 80.0-100.0 fL Mean Corpuscular Hemoglobin 29.1 28.0-32.0 pg Mean Corpuscular Hemoglobin Concent 32.3 32.0-36.0 g/dL Red Cell Distribution Width 16.7 H 11.8-14.3 % Platelet Count 247 140-450 10^3/uL Mean Platelet Volume 8.7 6.9-10.8 fL Neutrophils (%) (Auto) 78.8 37.0-80.0 % Lymphocytes (%) (Auto) 12.9 10.0-50.0 % Monocytes (%) (Auto) 8.1 0.0-12.0 % Eosinophils (%) (Auto) 0.0 0.0-7.0 % Basophils (%) (Auto) 0.2 0.0-2.0 % Neutrophils # (Auto) 10.0 H 1.6-8.6 10 ^3/uL Lymphocytes # (Auto) 1.6 0.4-5.4 10 ^3/uL Monocytes # (Auto) 1.0 0-1.3 10 ^3/uL Eosinophils # (Auto) 0 0-0.8 10 ^3/uL Basophils # (Auto) 0 0-0.2 10 ^3/uL Nucleated Red Blood Cells 0.0 % Sodium Level 145 # 136-145 mmol/L Potassium Level 4.7 3.5-5.1 mmol/L Chloride Level 112 H 98-107 mmol/L Carbon Dioxide Level 19 L 20-31 mmol/L Anion Gap 14 5-15 Blood Urea Nitrogen 23 9-23 mg/dL Creatinine 1.96 H 0.700-1.30 mg/dL Glomerular Filtration Rate Calc 37 >90 mL/min BUN/Creatinine Ratio 11.7 10.0-20.0 Serum Glucose 210 #H 74-106 mg/dL Calcium Level 10.0 8.7-10.4 mg/dL Total Bilirubin 0.4 0.2-1.0 mg/dL Aspartate Amino Transferase (AST) 24 13-40 U/L Alanine Aminotransferase (ALT) 21 7-40 U/L Alkaline Phosphatase 74 46-116 U/L Total Protein 7.5 5.7-8.2 g/dL Albumin 4.4 3.2-4.8 g/dL Phosphorus Level 4.0 2.4-5.1 mg/dL Magnesium Level 2.7 H 1.6-2.6 mg/dL Hemoglobin A1c 7.8 H <5.7 % A1C Vitamin D 25-Hydroxy 16.3 L 30.0-100 ng/mL Parathyroid Hormone (Intact) 155.3 H 18.4-80.1 pg/mL Test 01/09/25 04:45 01/08/25 23:17 Range/Units Urine Color Light-yellow Yellow Urine Clarity Turbid H Clear Urine pH 5.5 5.0-9.0 Urine Specific [place] 1.026 1.001-1.035 Urine Protein 2+ H Negative Urine Ketones Negative Negative Urine Blood Negative Negative /uL Urine Nitrite Negative Negative Urine Bilirubin Negative Negative Urine Urobilinogen Normal Negative mg/dL Urine Leukocyte Esterase 1+ Negative /uL Urine RBC 2 0 - 3 /hpf Urine Microscopic WBC 63 H 0-3 /HPF Urine Squamous Epithelial Cells Few <5 /hpf Urine Bacteria Many H None Seen /hpf Urine Creatinine 107.76 30.0-125.0 mg/dL Urine Protein/Creatinine Ratio 2.28 Urine Sodium 21 L 40-220 mmol/L Urine Glucose 4+ H Normal mg/dL Urine Total Protein 245.2 H 1-14 mg/dL Troponin I High Sensitivity 4 </=54 ng/L Lipase 458 H 12-53 U/L Microbiology Date/Time Source Procedure Growth Status 01/09/25 04:45 Voided Urine Urine Culture - Preliminary Resulted IMPRESSION: No acute abnormality identified. Radiation optimization: All CT scans at this facility use at least one of these dose optimization techniques: automated exposure control mA and/or kV adjustment per patient size (includes targeted exams where dose is matched to clinical indication) or iterative reconstr Assessment 1. Pancreatitis 2. Acute on chronic kidney disease 3. Hypertension 4. History of hiatal hernia 5. History of CVA Problems(with codes): (1) Hiatal hernia (2) Blood loss anemia (3) Umbilical hernia (4) Right inguinal hernia (5) Coffee ground emesis (6) HTN (hypertension) (7) Mild protein malnutrition (8) Hyperglycemia Plan/Recommendation 1. Continue with Carafate and Protonix 2. Follow H&H 3. Consider repeat EGD 4. IV fluids 5. Follow labs 6. Diabetes control 7. Consider repeat imaging is indicated. 8. We will follow Plan discussed with: Patient PHI HERNANDEZ MD Jan 10, 2025 14:46
--- NOTE | 2025-01-10 15:10 | DVHPN2 ---
Progress Note - Dictate Date Seen: Jan 10, 2025 Medical Necessity Reason Pt with a Central, PICC or Fol: No vital signs Vital Sign Date Time Temp Pulse Resp B/P (MAP) Pulse Ox O2 Delivery O2 Flow Rate FiO2 01/10/25 12:57 98.2 89 18 187/115 (139) 97 98.2 01/09/25 20:00 Room Air* 0 21 Total Intake and Output 01/09/25 01/09/25 01/10/25 15:00 23:00 07:00 Intake Total 1010 ml 120 ml Output Total 140 ml Balance 1010 ml -20 ml medications Current Medications Medications Dose Ordered Sig/Abilio Route Start Time Stop Time Status Last Admin Dose Admin Pantoprazole Sodium 40 mg DAILY IV 01/09/25 10:00 01/10/25 09:47 40 MG Hydralazine HCl 10 mg Q6HP PRN IV 01/09/25 04:30 01/10/25 11:02 10 MG Diagnostic Test (Pha) 1 strip IQ4HR 01/09/25 08:00 01/10/25 12:00 1 STRIP Insulin Human Regular IQ4HR SC 01/09/25 08:00 01/10/25 13:09 12 UNITS Dextrose 50 ml UD PRN IV 01/09/25 04:30 Sodium Chloride 1,000 ml @ 120 mls/hr Q8H20M IV 01/09/25 04:30 01/10/25 05:42 120 MLS/HR Acetaminophen/ Hydrocodone Bitart 1 tab Q4HP PRN PO 01/09/25 04:30 01/09/25 05:56 1 TAB Ondansetron HCl 4 mg Q4HP PRN IV 01/09/25 04:30 01/09/25 14:05 4 MG Docusate Sodium 100 mg BIDPRN PRN PO 01/09/25 04:30 Acetaminophen 650 mg Q6HP PRN PO 01/09/25 04:30 01/09/25 20:31 650 MG Morphine Sulfate 2 mg Q4HPRN PRN IV 01/09/25 04:30 01/10/25 10:09 2 MG Metoprolol Tartrate 25 mg BID PO 01/09/25 10:00 01/10/25 09:45 25 MG Nitroglycerin 0.4 mg Q5MINP PRN SL 01/09/25 05:00 Morphine Sulfate 2 mg Q30M PRN IV 01/09/25 05:00 Ceftriaxone Sodium 50 ml @ 100 mls/hr DAILY@09 IV 01/10/25 09:00 01/10/25 11:01 100 MLS/HR Labetalol HCl 20 mg Q4HR PRN IV 01/09/25 15:15 01/10/25 08:10 20 MG Sucralfate 1 gm QIDACHS PO 01/10/25 17:00 UNV Patient Own Medication 1 tab DAILY PO 01/11/25 10:00 UNV Patient Own Medication 1 tab DAILY PO 01/11/25 10:00 UNV Patient Own Medication 1 tab DAILY PO 01/11/25 10:00 UNV Patient Own Medication 1 tab BID PO 01/10/25 22:00 UNV Patient Own Medication 1 tab DAILY PO 01/11/25 10:00 UNV objective General Appearance: alert, no distress HEENT: EOMI, PERRLA, normal external inspect of ears, no icterus, no nasal drainage Neck: no carotid bruit, no jugular venous distention (JVD), no lymphadenopathy Chest: normal thorax Respiratory: clear to auscultation, normal air movement Cardiovascular: regular rate and rhythm, no diastolic murmur, no jugular venous distention (JVD), no rub, no systolic murmur Abdominal: soft, no hepatomegaly, no mass, no splenomegaly, no tenderness Genitourinary: grossly normal external Musculoskeletal: no joint tenderness, no swelling Extremities: normal pulses, no calf tenderness, no clubbing, no cyanosis, no edema Skin: no bruising, no jaundice, no rash Neurological: alert, No focal deficit laboratory and microbiology Laboratory Tests 01/10/25 07:28 Test 01/10/25 07:28 Range/Units Serum Glucose 210 #H 74-106 mg/dL Problem List 1. Acute pancreatitis Monitor, GI consult 2. MARY superimposed on CKD (CKD 3b) Monitor, nephrology consult 3. Hypertensive urgency Monitor, antihypertensives 4. DM II with hyperglycemia Monitor, insulin ss 5. Complicated UTI Monitor, IV abx 6. Hx CVA Monitor Assessment/Plan Subjective: Patient is awake and alert. Objective: Patient has had uncontrolled hypertension. On last admission patient was transferred to higher level of care for possible carotid endarterectomy. Per patient no surgery was done and he was discharged home on aspirin and Plavix. Patient now presents with coffee-ground emesis. Plan: GI consult. Continue home medications. Increase blood pressure medications. Monitor vitals. Monitor daily labs. Plan discussed with: Patient, Other VITOR SCHULTZ NP Jan 10, 2025 15:10
[2025-01-10] MEDS: amLODIPine BESYLATE 5 MG TAB PO ONE (16:49)
[2025-01-10] MEDS: cloNIDine HCL 0.1 MG TAB PO ONE (16:49)
[2025-01-10] MEDS: SUCRALFATE 1 GM TAB PO SCH (17:25)
[2025-01-10] MEDS: ATORVASTATIN 20 MG TAB PO SCH (21:37)
[2025-01-10] MEDS: cloNIDine HCL 0.1 MG TAB PO SCH (21:38)
[2025-01-11] VITALS (9 sets, daily range): BP systolic 129–169; BP diastolic 78–96; PULSE 67–106; RESP 15–18; TEMP 98–98.8; O2SAT 93–98
--- NOTE | 2025-01-11 09:54 | DVHPN2 ---
Progress Note Date Seen: Jan 11, 2025 Medical Necessity Reason Pt with a Central, PICC or Fol: No Subjective Review of Systems: GI:Abnormal Other Systems: Patient seen and examined by myself today in follow-up Objective vital signs Vital Sign Date Time Temp Pulse Resp B/P (MAP) Pulse Ox O2 Delivery O2 Flow Rate FiO2 01/11/25 05:27 161/96 01/11/25 05:00 98.4 84 16 93 98.4 01/10/25 20:00 Room Air* 0 21 Total Intake and Output 01/10/25 01/10/25 01/11/25 15:00 23:00 07:00 Intake Total 50 ml 566 ml 800 ml Output Total 210 ml 1350 ml Balance 50 ml 356 ml -550 ml medications Current Medications Medications Dose Ordered Sig/Abilio Route Start Time Stop Time Status Last Admin Dose Admin Pantoprazole Sodium 40 mg DAILY IV 01/09/25 10:00 01/10/25 09:47 40 MG Hydralazine HCl 10 mg Q6HP PRN IV 01/09/25 04:30 01/11/25 05:27 10 MG Diagnostic Test (Pha) 1 strip IQ4HR 01/09/25 08:00 01/11/25 04:28 1 STRIP Insulin Human Regular IQ4HR SC 01/09/25 08:00 01/11/25 04:28 2 UNITS Dextrose 50 ml UD PRN IV 01/09/25 04:30 Sodium Chloride 1,000 ml @ 120 mls/hr Q8H20M IV 01/09/25 04:30 01/10/25 05:42 120 MLS/HR Acetaminophen/ Hydrocodone Bitart 1 tab Q4HP PRN PO 01/09/25 04:30 01/09/25 05:56 1 TAB Ondansetron HCl 4 mg Q4HP PRN IV 01/09/25 04:30 01/09/25 14:05 4 MG Docusate Sodium 100 mg BIDPRN PRN PO 01/09/25 04:30 Acetaminophen 650 mg Q6HP PRN PO 01/09/25 04:30 01/09/25 20:31 650 MG Morphine Sulfate 2 mg Q4HPRN PRN IV 01/09/25 04:30 01/10/25 10:09 2 MG Metoprolol Tartrate 25 mg BID PO 01/09/25 10:00 01/10/25 21:38 25 MG Nitroglycerin 0.4 mg Q5MINP PRN SL 01/09/25 05:00 Morphine Sulfate 2 mg Q30M PRN IV 01/09/25 05:00 Ceftriaxone Sodium 50 ml @ 100 mls/hr DAILY@09 IV 01/10/25 09:00 01/10/25 11:01 100 MLS/HR Labetalol HCl 20 mg Q4HR PRN IV 01/09/25 15:15 01/10/25 08:10 20 MG Sucralfate 1 gm QIDACHS PO 01/10/25 17:00 01/11/25 05:21 1 GM Amlodipine Besylate 10 mg DAILY PO 01/11/25 10:00 Atorvastatin Calcium 40 mg HS PO 01/10/25 22:00 01/10/25 21:37 40 MG Benazepril HCl 40 mg DAILY PO 01/11/25 10:00 Clonidine HCl 0.2 mg BID PO 01/10/25 22:00 01/10/25 21:38 0.2 MG Patient Own Medication 1 tab DAILY PO 01/11/25 10:00 Examination: LUNGS:Normal, CVS:Normal, MSK:Normal laboratory and microbiology Laboratory Tests 01/10/25 07:28 Test 01/10/25 07:28 Range/Units Serum Glucose 210 #H 74-106 mg/dL Microbiology Date/Time Source Procedure Growth Status 01/09/25 04:45 Voided Urine Urine Culture - Preliminary Resulted Problem List/Assessment/Plan Problem List/Assessment/Plan Acute kidney injury superimposed Chronic Kidney Disease secondary hemodynamic mediated, FeNa <1% Diabetes mellitus type 2 Hyperglycemia Hypotension Acute pancreatitis 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
[2025-01-11] MEDS: Dapagliflozin Propanediol (Farxiga) 10MG TABLETS PO SCH (10:00)
[2025-01-11] MEDS: TAMSULOSIN HYDROCHLORIDE 0.4 MG CAP PO SCH (11:15)
[2025-01-11] MEDS: amLODIPine BESYLATE 5 MG TAB PO SCH (11:15)
[2025-01-11] MEDS: BENAZEPRIL HCL 10 MG TAB PO SCH (11:27)
--- NOTE | 2025-01-11 12:29 | DVHPN2 ---
Progress Note - Dictate Date Seen: Jan 11, 2025 Medical Necessity Reason Pt with a Central, PICC or Fol: No vital signs Vital Sign Date Time Temp Pulse Resp B/P (MAP) Pulse Ox O2 Delivery O2 Flow Rate FiO2 01/11/25 12:20 163/87 01/11/25 12:15 100 01/11/25 09:00 98.3 15 98 98.3 01/10/25 20:00 Room Air* 0 21 Total Intake and Output 01/10/25 01/10/25 01/11/25 15:00 23:00 07:00 Intake Total 50 ml 566 ml 800 ml Output Total 210 ml 1350 ml Balance 50 ml 356 ml -550 ml medications Current Medications Medications Dose Ordered Sig/Abilio Route Start Time Stop Time Status Last Admin Dose Admin Pantoprazole Sodium 40 mg DAILY IV 01/09/25 10:00 01/11/25 11:16 40 MG Diagnostic Test (Pha) 1 strip IQ4HR 01/09/25 08:00 01/11/25 08:00 1 STRIP Insulin Human Regular IQ4HR SC 01/09/25 08:00 01/11/25 08:00 9 UNITS Dextrose 50 ml UD PRN IV 01/09/25 04:30 Sodium Chloride 1,000 ml @ 120 mls/hr Q8H20M IV 01/09/25 04:30 01/10/25 05:42 120 MLS/HR Acetaminophen/ Hydrocodone Bitart 1 tab Q4HP PRN PO 01/09/25 04:30 01/09/25 05:56 1 TAB Ondansetron HCl 4 mg Q4HP PRN IV 01/09/25 04:30 01/11/25 12:00 4 MG Docusate Sodium 100 mg BIDPRN PRN PO 01/09/25 04:30 Acetaminophen 650 mg Q6HP PRN PO 01/09/25 04:30 01/09/25 20:31 650 MG Morphine Sulfate 2 mg Q4HPRN PRN IV 01/09/25 04:30 01/10/25 10:09 2 MG Metoprolol Tartrate 25 mg BID PO 01/09/25 10:00 01/11/25 11:15 25 MG Nitroglycerin 0.4 mg Q5MINP PRN SL 01/09/25 05:00 Morphine Sulfate 2 mg Q30M PRN IV 01/09/25 05:00 Ceftriaxone Sodium 50 ml @ 100 mls/hr DAILY@09 IV 01/10/25 09:00 01/11/25 11:14 100 MLS/HR Labetalol HCl 20 mg Q4HR PRN IV 01/09/25 15:15 01/10/25 08:10 20 MG Sucralfate 1 gm QIDACHS PO 01/10/25 17:00 01/11/25 11:16 1 GM Amlodipine Besylate 10 mg DAILY PO 01/11/25 10:00 01/11/25 11:15 10 MG Atorvastatin Calcium 40 mg HS PO 01/10/25 22:00 01/10/25 21:37 40 MG Benazepril HCl 40 mg DAILY PO 01/11/25 10:00 01/11/25 11:27 40 MG Clonidine HCl 0.2 mg BID PO 01/10/25 22:00 01/11/25 12:20 0.2 MG Patient Own Medication 1 tab DAILY PO 01/11/25 10:00 Tamsulosin HCl 0.4 mg DAILY PO 01/11/25 10:00 01/11/25 11:15 0.4 MG Hydralazine HCl 75 mg Q8HR PO 01/11/25 12:30 UNV objective General Appearance: alert, no distress HEENT: EOMI, PERRLA, normal external inspect of ears, no icterus, no nasal drainage Neck: no carotid bruit, no jugular venous distention (JVD), no lymphadenopathy Chest: normal thorax Respiratory: clear to auscultation, normal air movement Cardiovascular: regular rate and rhythm, no diastolic murmur, no jugular venous distention (JVD), no rub, no systolic murmur Abdominal: soft, no hepatomegaly, no mass, no splenomegaly, no tenderness Genitourinary: grossly normal external Musculoskeletal: no joint tenderness, no swelling Extremities: normal pulses, no calf tenderness, no clubbing, no cyanosis, no edema Skin: no bruising, no jaundice, no rash Neurological: alert, No focal deficit laboratory and microbiology Laboratory Tests 01/10/25 07:28 Test 01/10/25 07:28 Range/Units Serum Glucose 210 #H 74-106 mg/dL Problem List 1. Acute pancreatitis Monitor, GI consult 2. MARY superimposed on CKD (CKD 3b) Monitor, nephrology consult 3. Hypertensive urgency Monitor, antihypertensives 4. DM II with hyperglycemia Monitor, insulin ss 5. Complicated UTI Monitor, IV abx 6. Hx CVA Monitor Assessment/Plan Subjective: Patient is awake and alert. Objective: Patient was admitted for hypertensive urgency. Patient has a complicated UTI with a history of CVA. Patient has internal carotid stenosis. He was recently sent to a tertiary center, however, he stated they did not do any surgery and they just suggested aspirin and Plavix. Patient has an MARY superimposed on CKD. Patient has underlying CKD stage 3B. Patient had elevated lipase at 458. Repeat lipase and CMP is currently pending. Blood pressure is more controlled today. Plan: Adjust hydralazine dose. Continue clonidine and continue amlodipine. Monitor daily labs. Abdominal pain is improving. Plan discussed with: Patient, Other VITOR SCHULTZ NP Jan 11, 2025 12:29
[2025-01-11] MEDS ORDERED: hydrALAZINE HCL 25 MG TAB PO SCH ×2 (12:30→14:00)
[2025-01-11 14:09] LABS: Alanine Aminotransferase 18 U/L (7-40); Albumin 3.4 g/dL (3.2-4.8); Alkaline Phosphatase 63 U/L (46-116); Anion Gap 10 (5-15); Aspartate Aminotransferase 17 U/L (13-40); Bilirubin, Total 0.4 mg/dL (0.2-1.0); Carbon Dioxide 22 mmol/L (20-31); Potassium 4.6 mmol/L (3.5-5.1); Sodium 141 mmol/L (136-145); Total Protein 5.8 g/dL (5.7-8.2)
[2025-01-11 14:13] LABS: Chloride 109 mmol/L (98-107); Glucose 275 mg/dL (74-106)
[2025-01-11 14:24] LABS: BUN/Creatinine Ratio 15.7 (10.0-20.0)
[2025-01-11 14:25] LABS: Lipase 20 U/L (12-53)
[2025-01-11 14:26] LABS: Blood Urea Nitrogen 31 mg/dL (9-23)
--- NOTE | 2025-01-11 15:34 | PRN ---
Misceleneous Note Note Note January 11, 2025 Subjective: Per chart patient had coffee-ground emesis Current Medications Medications (Trade) Dose Ordered Sig/Abilio Route PRN Reason Start Time Stop Time Status Last Admin Amlodipine Besylate (Norvasc Tablet) 10 mg DAILY PO 01/11/25 10:00 01/11/25 11:15 Atorvastatin Calcium (Lipitor) 40 mg HS PO 01/10/25 22:00 01/10/25 21:37 Benazepril HCl (Lotensin Tablet) 40 mg DAILY PO 01/11/25 10:00 01/11/25 11:27 Clonidine HCl (Catapres Tablet) 0.2 mg BID PO 01/10/25 22:00 01/11/25 12:20 Hydralazine HCl (Apresoline Tablet) 75 mg Q8H PO 01/11/25 20:00 Patient Own Medication 1 tab DAILY PO 01/11/25 10:00 Sucralfate (Carafate Tab) 1 gm QIDACHS PO 01/10/25 17:00 01/11/25 11:16 Tamsulosin HCl (Flomax) 0.4 mg DAILY PO 01/11/25 10:00 01/11/25 11:15 Vital Signs Date Time Temp Pulse Resp B/P (MAP) Pulse Ox O2 Delivery O2 Flow Rate FiO2 01/11/25 14:51 98.4 95 18 141/82 (101) 96 98.4 01/11/25 08:00 Room Air* 0 21 Physical exam General: Asleep but arousable Regular rate and rhythm Soft nontender nondistended normoactive bowel sounds No clubbing cyanosis or edema Hypertensive emergency MARY CVA Acute pancreatitis Question coffee-ground emesis Recommendations: One. Continue current medications 2. Follow labs 3. Signing off to Dr. Junior 4. Consider EGD a PHI HERNANDEZ MD Jan 11, 2025 15:34
[2025-01-11] MEDS: hydrALAZINE HCL 25 MG TAB PO SCH (20:50)
[2025-01-12] VITALS (9 sets, daily range): BP systolic 119–136; BP diastolic 68–83; PULSE 73–116; RESP 14–19; TEMP 97.8–98.8; O2SAT 93–97
[2025-01-12 10:28] LABS: Basophils # (auto) 0 10 ^3/uL (0-0.2); Basophils % (auto) 0.4 % (0.0-2.0); Eosinophils # (auto) 0 10 ^3/uL (0-0.8); Eosinophils % (auto) 0.1 % (0.0-7.0); Hematocrit 44.3 % (41.0-53.0); Hemoglobin 13.9 g/dL (13.5-17.5); Lymphocytes # (auto) 1.6 10 ^3/uL (0.4-5.4); Lymphocytes % (auto) 22.4 % (10.0-50.0); Mean Corpuscular Hgb Conc. 31.3 g/dL (32.0-36.0); Mean Corpuscular Volume 92.6 fL (80.0-100.0); Monocytes # (auto) 0.7 10 ^3/uL (0-1.3); Monocytes % (auto) 10.2 % (0.0-12.0); Neutrophils # (auto) 4.9 10 ^3/uL (1.6-8.6); Neutrophils % (auto) 66.9 % (37.0-80.0); Nucleated Red Blood Cells % 0.1 %; Platelet Count (auto) 209 10^3/uL (140-450); Red Blood Cells 4.79 10^6/uL (4.5-5.90); Red Cell Distribution Width 16.4 % (11.8-14.3); White Blood Cell 7.3 10^3/uL (4.4-10.8)
[2025-01-12] MEDS ORDERED: CLOP75TA70 PO (10:36)
[2025-01-12] MEDS ORDERED: ASPI81CH59 PO (10:36)
--- NOTE | 2025-01-12 10:42 | DVHPN2 ---
Progress Note - Dictate Date Seen: Jan 12, 2025 Medical Necessity Reason Pt with a Central, PICC or Fol: No vital signs Vital Sign Date Time Temp Pulse Resp B/P (MAP) Pulse Ox O2 Delivery O2 Flow Rate FiO2 01/12/25 09:40 126/68 01/12/25 09:40 116 01/12/25 08:57 98.4 17 94 98.4 01/12/25 08:00 Room Air* 0 21 Total Intake and Output 01/11/25 01/11/25 01/12/25 15:00 23:00 07:00 Intake Total 50 ml 500 ml 220 ml Output Total 550 ml 200 ml Balance 50 ml -50 ml 20 ml medications Current Medications Medications Dose Ordered Sig/Abilio Route Start Time Stop Time Status Last Admin Dose Admin Pantoprazole Sodium 40 mg DAILY IV 01/09/25 10:00 01/12/25 09:39 40 MG Diagnostic Test (Pha) 1 strip IQ4HR 01/09/25 08:00 01/12/25 08:20 1 STRIP Insulin Human Regular IQ4HR SC 01/09/25 08:00 01/12/25 09:38 6 UNITS Dextrose 50 ml UD PRN IV 01/09/25 04:30 Sodium Chloride 1,000 ml @ 120 mls/hr Q8H20M IV 01/09/25 04:30 01/12/25 07:30 120 MLS/HR Acetaminophen/ Hydrocodone Bitart 1 tab Q4HP PRN PO 01/09/25 04:30 01/09/25 05:56 1 TAB Ondansetron HCl 4 mg Q4HP PRN IV 01/09/25 04:30 01/11/25 12:00 4 MG Docusate Sodium 100 mg BIDPRN PRN PO 01/09/25 04:30 Acetaminophen 650 mg Q6HP PRN PO 01/09/25 04:30 01/09/25 20:31 650 MG Morphine Sulfate 2 mg Q4HPRN PRN IV 01/09/25 04:30 01/10/25 10:09 2 MG Metoprolol Tartrate 25 mg BID PO 01/09/25 10:00 01/12/25 09:40 25 MG Nitroglycerin 0.4 mg Q5MINP PRN SL 01/09/25 05:00 Morphine Sulfate 2 mg Q30M PRN IV 01/09/25 05:00 Ceftriaxone Sodium 50 ml @ 100 mls/hr DAILY@09 IV 01/10/25 09:00 01/12/25 09:39 100 MLS/HR Labetalol HCl 20 mg Q4HR PRN IV 01/09/25 15:15 01/10/25 08:10 20 MG Sucralfate 1 gm QIDACHS PO 01/10/25 17:00 01/12/25 05:37 1 GM Amlodipine Besylate 10 mg DAILY PO 01/11/25 10:00 01/12/25 09:40 10 MG Atorvastatin Calcium 40 mg HS PO 01/10/25 22:00 01/11/25 21:15 40 MG Benazepril HCl 40 mg DAILY PO 01/11/25 10:00 01/11/25 11:27 40 MG Clonidine HCl 0.2 mg BID PO 01/10/25 22:00 01/11/25 12:20 0.2 MG Patient Own Medication 1 tab DAILY PO 01/11/25 10:00 Tamsulosin HCl 0.4 mg DAILY PO 01/11/25 10:00 01/12/25 09:40 0.4 MG Hydralazine HCl 75 mg Q8H PO 01/11/25 20:00 01/12/25 05:37 75 MG Aspirin 81 mg DAILY PO 01/12/25 10:45 UNV Clopidogrel Bisulfate 75 mg DAILY PO 01/12/25 10:45 UNV objective General Appearance: alert, no distress HEENT: EOMI, PERRLA, normal external inspect of ears, no icterus, no nasal drainage Neck: no carotid bruit, no jugular venous distention (JVD), no lymphadenopathy Chest: normal thorax Respiratory: clear to auscultation, normal air movement Cardiovascular: regular rate and rhythm, no diastolic murmur, no jugular venous distention (JVD), no rub, no systolic murmur Abdominal: soft, no hepatomegaly, no mass, no splenomegaly, no tenderness Genitourinary: grossly normal external Musculoskeletal: no joint tenderness, no swelling Extremities: normal pulses, no calf tenderness, no clubbing, no cyanosis, no edema Skin: no bruising, no jaundice, no rash Neurological: alert, No focal deficit laboratory and microbiology Test 01/12/25 10:00 Range/Units Serum Glucose Pending Problem List 1. Acute pancreatitis Monitor, GI consult 2. MARY superimposed on CKD (CKD 3b) Monitor, nephrology consult 3. Hypertensive urgency Monitor, antihypertensives 4. DM II with hyperglycemia Monitor, insulin ss 5. Complicated UTI Monitor, IV abx 6. Hx CVA Monitor Assessment/Plan santos Subjective Patient is awake and alert. Objective Spoke with patient and patient's Melida at bedside. Patient was admitted for abdominal pain related to acute pancreatitis. Patient had an MARY superimposed on CKD. Patient has underlying CKD stage IIIb. Patient also had hypertensive urgency. Blood pressure medications were adjusted several times. Patient's systolic blood pressure is now sustaining in the 130s. Patient was found to have a complicated UTI. Patient remains on IV antibiotics. Patient denies any abdominal pain at this time. Patient had complaints of possible coffee-ground emesis. Hemoglobin has remained stable. Patient has a history of carotid stenosis and recent CVA. We have now continued aspirin and Plavix. Hemoglobin is stable. Plan PT eval. Urology consult for urinary retention. 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 DC planning once cleared by urology. Plan discussed with: Patient, Other VITOR SCHULTZ NP Jan 12, 2025 10:42
[2025-01-12 10:46] LABS: Sodium 140 mmol/L (136-145)
[2025-01-12 10:47] LABS: Anion Gap 9 (5-15); Calcium 9.6 mg/dL (8.7-10.4); Carbon Dioxide 21 mmol/L (20-31)
[2025-01-12 10:52] LABS: BUN/Creatinine Ratio 12.3 (10.0-20.0); Lipase 25 U/L (12-53)
[2025-01-12 11:01] LABS: Blood Urea Nitrogen 26 mg/dL (9-23); Chloride 110 mmol/L (98-107); Glucose 231 mg/dL (74-106)
[2025-01-12] MEDS: CLOPIDOGREL BISULFATE 75 MG TAB PO SCH (11:48)
[2025-01-12] MEDS: ASPirin 81 mg TAB PO SCH (11:49)
[2025-01-12] MEDS: Glucerna Carbsteady SHAKE Vanilla 8oz PO SCH (18:00)
[2025-01-12] MEDS: DOCUSATE SOD 100 MG CAP PO PRN (21:19)
--- NOTE | 2025-01-12 21:39 | DVHPN2 ---
Progress Note - Dictate Date Seen: Jan 12, 2025 Medical Necessity Reason Pt with a Central, PICC or Fol: No Subjective No new complaints ; abdominal pain is improving Patient's chart has been reviewed Patient's H&H is stable; no active bleeding is reported Patient has had multiple endoscopies in the last couple of years showing similar findings of large hiatal hernia and minimal esophagitis His last colonoscopy in July 2023 had shown some benign polyps that were removed Patient is undergoing urological workup for suspected bladder outlet or urinary retention vital signs Vital Sign Date Time Temp Pulse Resp B/P (MAP) Pulse Ox O2 Delivery O2 Flow Rate FiO2 01/12/25 21:20 98 130/77 01/12/25 20:50 98.3 18 93 98.3 01/12/25 08:00 Room Air* 0 21 Total Intake and Output 01/11/25 01/11/25 01/12/25 15:00 23:00 07:00 Intake Total 50 ml 500 ml 220 ml Output Total 550 ml 200 ml Balance 50 ml -50 ml 20 ml medications Current Medications Medications Dose Ordered Sig/Abilio Route Start Time Stop Time Status Last Admin Dose Admin Pantoprazole Sodium 40 mg DAILY IV 01/09/25 10:00 01/12/25 09:39 40 MG Diagnostic Test (Pha) 1 strip IQ4HR 01/09/25 08:00 01/12/25 20:16 1 STRIP Insulin Human Regular IQ4HR SC 01/09/25 08:00 01/12/25 20:22 6 UNITS Dextrose 50 ml UD PRN IV 01/09/25 04:30 Sodium Chloride 1,000 ml @ 120 mls/hr Q8H20M IV 01/09/25 04:30 01/12/25 15:53 120 MLS/HR Acetaminophen/ Hydrocodone Bitart 1 tab Q4HP PRN PO 01/09/25 04:30 01/09/25 05:56 1 TAB Ondansetron HCl 4 mg Q4HP PRN IV 01/09/25 04:30 01/11/25 12:00 4 MG Docusate Sodium 100 mg BIDPRN PRN PO 01/09/25 04:30 01/12/25 21:19 100 MG Acetaminophen 650 mg Q6HP PRN PO 01/09/25 04:30 01/09/25 20:31 650 MG Morphine Sulfate 2 mg Q4HPRN PRN IV 01/09/25 04:30 01/10/25 10:09 2 MG Metoprolol Tartrate 25 mg BID PO 01/09/25 10:00 01/12/25 21:20 25 MG Nitroglycerin 0.4 mg Q5MINP PRN SL 01/09/25 05:00 Morphine Sulfate 2 mg Q30M PRN IV 01/09/25 05:00 Ceftriaxone Sodium 50 ml @ 100 mls/hr DAILY@09 IV 01/10/25 09:00 01/12/25 09:39 100 MLS/HR Labetalol HCl 20 mg Q4HR PRN IV 01/09/25 15:15 01/10/25 08:10 20 MG Sucralfate 1 gm QIDACHS PO 01/10/25 17:00 01/12/25 21:19 1 GM Amlodipine Besylate 10 mg DAILY PO 01/11/25 10:00 01/12/25 09:40 10 MG Atorvastatin Calcium 40 mg HS PO 01/10/25 22:00 01/12/25 21:19 40 MG Benazepril HCl 40 mg DAILY PO 01/11/25 10:00 01/11/25 11:27 40 MG Clonidine HCl 0.2 mg BID PO 01/10/25 22:00 01/11/25 12:20 0.2 MG Patient Own Medication 1 tab DAILY PO 01/11/25 10:00 Hydralazine HCl 75 mg Q8H PO 01/11/25 20:00 01/12/25 05:37 75 MG Aspirin 81 mg DAILY PO 01/12/25 10:45 01/12/25 11:49 81 MG Clopidogrel Bisulfate 75 mg DAILY PO 01/12/25 10:45 01/12/25 11:48 75 MG Enteral Nutritional Formula 240 ml TIDWM PO 01/12/25 18:00 01/12/25 18:00 240 ML Tamsulosin HCl 0.8 mg DAILY PO 01/13/25 10:00 objective General: Alert oriented male lying in bed HEENT: NC/AT EOMI PERRLA O/P clear Heart: Regular rate and rhythm Abdomen: Soft non distended; NT Extremity: No clubbing cyanosis or edema laboratory and microbiology Laboratory Tests 01/12/25 10:00 Test 01/12/25 10:00 Range/Units Serum Glucose 231 H 74-106 mg/dL Problems(with codes): (1) Coffee ground emesis (2) HTN (hypertension) (3) Blood loss anemia (4) Hiatal hernia (5) Hyperglycemia Prognosis Plan At this time I do not believe the patient needs another endoscopy Continue Protonix 40 mg p.o. twice a day Carafate 1 g p.o. twice a day DC aspirin NSAIDs smoking alcohol Repeat surveillance colonoscopy in 1-2 years Continue urological workup and management I will follow this patient with you as needed Dietary Evaluation Review Comments: For DM and CKD, follow a CCHO-60 Renal sepcific diet with protein restriction of 42g/day. Once pt is on routine dialysis, follw a CCHO-60 60 gram protein diet. Expected Outcomes/Goals: controlled DM, less uremic syndrome, gradual wt loss. Plan discussed with: Other (Dr Moore) KAREL PRITCHARD MD Jan 12, 2025 21:39
[2025-01-13] VITALS (10 sets, daily range): BP systolic 149–165; BP diastolic 75–99; PULSE 88–118; RESP 18–20; TEMP 98.3–98.9; O2SAT 95–100
[2025-01-13 07:49] LABS: Anion Gap 12 (5-15); Potassium 4.4 mmol/L (3.5-5.1); Sodium 142 mmol/L (136-145)
[2025-01-13 07:50] LABS: Calcium 8.9 mg/dL (8.7-10.4)
[2025-01-13 07:53] LABS: Carbon Dioxide 19 mmol/L (20-31); Chloride 111 mmol/L (98-107)
[2025-01-13 07:55] LABS: BUN/Creatinine Ratio 16.6 (10.0-20.0)
[2025-01-13 07:59] LABS: Blood Urea Nitrogen 28 mg/dL (9-23); Glucose 137 mg/dL (74-106)
[2025-01-13] MEDS: TAMSULOSIN HYDROCHLORIDE 0.4 MG CAP PO SCH (10:00)
--- NOTE | 2025-01-13 10:02 | DVHINCON2 ---
Date of service: Jan 13, 2025 Referring Physician Hospitalist Reason for Consultation Unable to place Link catheter History of Present Illness Patient in urinary retention. Nursing staff performed straight catheterization yesterday for 600 ml urine return. Consultation was requested for urinary retention. I ordered Link catheter placement intead of another CIC if patient was unable to urinate. Nursing staff attempted Link placement 5 times without success. I spoke with Nestor HERNÁNDEZ and advised to try 16F Coude tip catheter with lidocaine jel. If he is unsuccessful, then I will proceed with cystoscopy and link catheter placement. Nephrology service is on the case for MARY. Patient has history of large bladder diverticulm, s/p cystoscopy with Link catheter placement at bedside by my on 12/12/24. 69-year-old male with past medical history of anemia, CBC, DM, hypertension, and hyperlipidemia who presented to [facility] ED with complaint of abdominal pain. Patient reports symptoms progressively get worse with burning epigastric abdominal pain, constant, rating 7/10 numeric scale, getting worse that prompted this visit. Patient was seen and evaluated in the ED, laboratory data shows WBC 7.4, platelets 242, sodium 139, potassium 4.8, BUN 27, creatinine 2.12, GFR 33, glucose 313, troponin 4, lipase 458, blood pressure 172/91 trending down to 152/92, heart rate 92, temperature 98.3 F, O2 saturation 97% on room air. Abdomen/pelvis CT showed no acute abnormality identified. Please see medication orders section in the computer. On my assessment, patient denied chest pain, headache, no dizziness, no shortness of breaths, no nausea, vomiting, no fever, no chills. Patient was admitted for further evaluation and medical management. Past Medical History Anemia, CVA, DM, High Lipids, HTN Past Surgical History Cystoscopy with 16 Coude tip link placement 12/12/24 Family History: Cardiovascular disease G8 BROTHER Cerebrovascular accident (CVA) G8 MOTHER FH: heart failure G8 FATHER Hypertension G8 MOTHER Allergies: Coded Allergies: NO KNOWN ALLERGIES (Unverified , 06/03/16) Home Meds Active Scripts Ferrous Sulfate (Iron (Ferrous Sulfate)) 50 Mg Tab, 50 MG PO BID for 30 Days, #60 TAB Prov:VITOR SCHULTZ SUPPLIER SPECIALIST 01/13/25 Metoprolol Tartrate (Metoprolol Tartrate) 50 Mg Tab, 50 MG PO BID for 30 Days, #60 TAB Prov:VITOR SCHULTZ SUPPLIER SPECIALIST 01/13/25 Clonidine Hydrochloride (Clonidine Hcl) 0.2 Mg Tab, 1 TAB PO TID, #90 TAB 5 Refills Prov:VITOR SCHULTZ SUPPLIER SPECIALIST 01/13/25 Sucralfate (CARAFATE) 1 Gm Tab, 1 GM OR QIDACHS for 30 Days, #120 TAB Prov:VITOR SCHULTZ SUPPLIER SPECIALIST 01/13/25 Pantoprazole Sodium Sesquihydr (Protonix) 40 Mg Tab, 40 MG PO BID for 30 Days, #60 TAB Prov:VITOR SCHULTZ SUPPLIER SPECIALIST 01/13/25 Ciprofloxacin Hcl (Cipro) 500 Mg Tab, 1 TAB PO BID, #14 TAB Prov:RUDY PALOMINO MD 01/05/25 Atorvastatin Calcium (ATORVASTATIN CALCIUM) 80 Mg Tab, 1 TAB PO DAILY, #30 TAB 5 Refills Prov:VITOR SCHULTZ SUPPLIER SPECIALIST 09/08/24 Reported Medications Clopidogrel Bisulfate (CLOPIDOGREL) 75 Mg Tab, 1 TAB PO DAILY 01/12/25 Aspirin (Aspirin Low Dose) 81 Mg Chw, 1 TAB PO DAILY 01/12/25 Dapagliflozin Propanediol (Farxiga) 10 Mg Tab, 1 TAB PO DAILY 09/03/24 Benazepril Hcl (Benazepril Hcl) 40 Mg Tab, 1 TAB PO DAILY 09/30/22 Amlodipine Besylate (Amlodipine Besylate) 10 Mg Tab, 1 TAB PO DAILY 09/30/22 Discontinued Reported Medications Metformin Hydrochloride (Metformin Hcl) 850 Mg Tab, 1 TAB PO BID 09/30/22 Current Medications Current Medications Medications (Trade) Dose Ordered Sig/Abilio Route PRN Reason Start Time Stop Time Status Last Admin Aspirin 81 mg DAILY PO 01/12/25 10:45 01/12/25 11:49 Clopidogrel Bisulfate (Plavix) 75 mg DAILY PO 01/12/25 10:45 01/12/25 11:48 Enteral Nutritional Formula (Glucerna Carbsteady SHAKE) 240 ml TIDWM PO 01/12/25 18:00 01/12/25 18:00 Tamsulosin HCl (Flomax) 0.8 mg DAILY PO 01/13/25 10:00 Review of Systems r, Chills, Sweats, Weakness, Malaise, Other Eyes: No: Pain, Vision change, Conjunctivae inflammation, Eyelid inflammation, Other, Redness ENT: No: Ear pain, Ear discharge, Nose pain, Nose discharge, Nose congestion, Mouth pain, Mouth swelling, Throat pain, Throat swelling, Other Respiratory: No: Cough, Dry, Shortness of breath, SOB with excertion, Wheezing, Hemoptysis, Pleuritic Pain, Sputum, Wheezing, Other Cardiovascular: No: Chest Pain, Palpitations, Orthopnea, Paroxysmal Noc. Dyspnea, Edema, Lt Headedness, Other Gastrointestinal: Abdominal Pain; No: Nausea, Vomiting, Diarrhea, Constipation, Melena, Hematochezia, Other Genitourinary: No Dysuria; Frequency; No Incontinence, No Hematuria, No Retention, No Other Musculoskeletal: No: other, neck pain, shoulder pain, arm pain, back pain, hand pain, leg pain, foot pain Skin: No: Rash, Lesions, Jaundice, Bruising, Other Neurological: No: Weakness, Numbness, Incoordination, Change in speech, Confusion, Seizures, Other Allergies: Coded Allergies: NO KNOWN ALLERGIES (Unverified , 06/03/16) Medications Current Medications Medications Dose Ordered Sig/Abilio Route Start Time Stop Time Status Last Admin Dose Admin Pantoprazole Sodium 40 mg DAILY IV 01/09/25 10:00 Amlodipine Besylate 5 mg DAILY PO 01/10/25 10:00 Hydralazine HCl 10 mg Q6HP PRN IV 01/09/25 04:30 Diagnostic Test (Pha) 1 strip IQ4HR 01/09/25 08:00 Insulin Human Regular IQ4HR SC 01/09/25 08:00 Dextrose 50 ml UD PRN IV 01/09/25 04:30 Sodium Chloride 1,000 ml @ 120 mls/hr Q8H20M IV 01/09/25 04:30 01/09/25 04:48 120 MLS/HR Acetaminophen/ Hydrocodone Bitart 1 tab Q4HP PRN PO 01/09/25 04:30 01/09/25 04:56 1 TAB Ondansetron HCl 4 mg Q4HP PRN IV 01/09/25 04:30 Docusate Sodium 100 mg BIDPRN PRN PO 01/09/25 04:30 Acetaminophen 650 mg Q6HP PRN PO 01/09/25 04:30 Morphine Sulfate 2 mg Q4HPRN PRN IV 01/09/25 04:30 Metoprolol Tartrate 25 mg BID PO 01/09/25 10:00 Vital Signs Vital Signs Date Time Temp Pulse Resp B/P (MAP) Pulse Ox O2 Delivery O2 Flow Rate FiO2 01/13/25 07:53 98.3 98 18 151/79 (103) 100 98.3 01/12/25 20:00 Room Air* 0 21 Physical Exam Date Time Temp Pulse Resp B/P (MAP) Pulse Ox O2 Delivery O2 Flow Rate FiO2 01/09/25 04:47 156/80 01/09/25 04:00 74 01/09/25 02:40 16 97 Room Air 01/09/25 02:40 98.3 98.3 General Appearance: Alert, Oriented X3, Cooperative, No acute distress HEENT: Atraumatic, PERRLA, EOMI, Mucous membr. moist/pink Respiratory: Clear to auscultation, Normal air movement Cardiovascular: Regular rate, Normal S1, Normal S2, No murmurs Abdominal: Normal bowel sounds, Soft, No hepatospenomegaly, No masses, Other (Reports tenderness) : Link catheter placed by floor RN Extremities: No clubbing, No cyanosis, No edema, Normal pulses, No tenderness/swelling Skin: No rashes, No breakdown, No significant lesion Neuro: Normal gait, Normal speech, Strength at 5/5 X4 ext, Normal tone, Sensation intact, Cranial nerves 3-12 NL, Reflexes 2+ Psych/Mental Status: Mental status NL, Mood NL Labs/Diagnostic Data Labs Test 01/13/25 08:14 01/13/25 07:18 01/12/25 16:18 01/12/25 10:00 Range/Units POC Glucose 132 H 70-106 mg/dl Sodium Level 142 136-145 mmol/L Potassium Level 4.4 3.5-5.1 mmol/L Chloride Level 111 H 98-107 mmol/L Carbon Dioxide Level 19 L 20-31 mmol/L Anion Gap 12 5-15 Blood Urea Nitrogen 28 H 9-23 mg/dL Creatinine 1.69 H 0.700-1.30 mg/dL Glomerular Filtration Rate Calc 44 >90 mL/min BUN/Creatinine Ratio 16.6 10.0-20.0 Serum Glucose 137 H 74-106 mg/dL Calcium Level 8.9 8.7-10.4 mg/dL White Blood Count 7.3 # 4.4-10.8 10^3/uL Red Blood Count 4.79 4.5-5.90 10^6/uL Hemoglobin 13.9 13.5-17.5 g/dL Hematocrit 44.3 41.0-53.0 % Mean Corpuscular Volume 92.6 80.0-100.0 fL Mean Corpuscular Hemoglobin 29.0 28.0-32.0 pg Mean Corpuscular Hemoglobin Concent 31.3 L 32.0-36.0 g/dL Red Cell Distribution Width 16.4 H 11.8-14.3 % Platelet Count 209 140-450 10^3/uL Mean Platelet Volume 8.9 6.9-10.8 fL Neutrophils (%) (Auto) 66.9 37.0-80.0 % Lymphocytes (%) (Auto) 22.4 10.0-50.0 % Monocytes (%) (Auto) 10.2 0.0-12.0 % Eosinophils (%) (Auto) 0.1 0.0-7.0 % Basophils (%) (Auto) 0.4 0.0-2.0 % Neutrophils # (Auto) 4.9 1.6-8.6 10 ^3/uL Lymphocytes # (Auto) 1.6 0.4-5.4 10 ^3/uL Monocytes # (Auto) 0.7 0-1.3 10 ^3/uL Eosinophils # (Auto) 0 0-0.8 10 ^3/uL Basophils # (Auto) 0 0-0.2 10 ^3/uL Nucleated Red Blood Cells 0.1 % Lipase 25 12-53 U/L Test 01/11/25 13:33 01/09/25 05:55 01/09/25 05:50 01/09/25 04:45 Range/Units Total Bilirubin 0.4 0.2-1.0 mg/dL Aspartate Amino Transferase (AST) 17 13-40 U/L Alanine Aminotransferase (ALT) 18 7-40 U/L Alkaline Phosphatase 63 46-116 U/L Total Protein 5.8 5.7-8.2 g/dL Albumin 3.4 3.2-4.8 g/dL Phosphorus Level 4.0 2.4-5.1 mg/dL Magnesium Level 2.7 H 1.6-2.6 mg/dL Hemoglobin A1c 7.8 H <5.7 % A1C Vitamin D 25-Hydroxy 16.3 L 30.0-100 ng/mL Parathyroid Hormone (Intact) 155.3 H 18.4-80.1 pg/mL Urine Color Light-yellow Yellow Urine Clarity Turbid H Clear Urine pH 5.5 5.0-9.0 Urine Specific [place] 1.026 1.001-1.035 Urine Protein 2+ H Negative Urine Ketones Negative Negative Urine Blood Negative Negative /uL Urine Nitrite Negative Negative Urine Bilirubin Negative Negative Urine Urobilinogen Normal Negative mg/dL Urine Leukocyte Esterase 1+ Negative /uL Urine RBC 2 0 - 3 /hpf Urine Microscopic WBC 63 H 0-3 /HPF Urine Squamous Epithelial Cells Few <5 /hpf Urine Bacteria Many H None Seen /hpf Urine Creatinine 107.76 30.0-125.0 mg/dL Urine Protein/Creatinine Ratio 2.28 Urine Sodium 21 L 40-220 mmol/L Urine Glucose 4+ H Normal mg/dL Urine Total Protein 245.2 H 1-14 mg/dL Test 01/08/25 23:17 Range/Units Troponin I High Sensitivity 4 </=54 ng/L Microbiology Date/Time Source Procedure Growth Status 01/09/25 04:45 Voided Urine Urine Culture - Final Complete Assessment Bladder diverticulum BPH Difficult link placement Plan/Recommendation If 18 f Coude tip catheter placement by nursing staff successful. F/u as outpatient for definitive management with Urolift vs. TURP Plan discussed with: Patient, Other MISSY SHETTY MD Jan 13, 2025 10:02
[2025-01-13 10:07] LABS: PSA Free 0.16 ng/mL; Prostate Specific Antigen 1.3 ng/mL (0.0-4.0)
[2025-01-13] MEDS: LIDOCAINE 2% JELLY 11ml (GLYDO) UR ONE (11:00)
[2025-01-13] MEDS ORDERED: PANT40TA2 PO (12:03)
[2025-01-13] MEDS ORDERED: SUCR1TAB31 OR (12:03)
[2025-01-13] MEDS ORDERED: CLON0.2T PO (12:15)
[2025-01-13] MEDS ORDERED: METO-158 PO (12:15)
--- NOTE | 2025-01-13 12:16 | DVHPN2 ---
Progress Note - Dictate Date Seen: Jan 13, 2025 Medical Necessity Reason Pt with a Central, PICC or Fol: No vital signs Vital Sign Date Time Temp Pulse Resp B/P (MAP) Pulse Ox O2 Delivery O2 Flow Rate FiO2 01/13/25 11:36 98 18 151/79 01/13/25 08:00 98 Room Air* 0 21 01/13/25 07:53 98.3 98.3 Total Intake and Output 01/12/25 01/12/25 01/13/25 15:00 23:00 07:00 Intake Total 50 ml 800 ml 250 ml Balance 50 ml 800 ml 250 ml medications Current Medications Medications Dose Ordered Sig/Abilio Route Start Time Stop Time Status Last Admin Dose Admin Pantoprazole Sodium 40 mg DAILY IV 01/09/25 10:00 01/13/25 10:12 40 MG Diagnostic Test (Pha) 1 strip IQ4HR 01/09/25 08:00 01/13/25 08:00 1 STRIP Insulin Human Regular IQ4HR SC 01/09/25 08:00 01/12/25 23:55 3 UNITS Dextrose 50 ml UD PRN IV 01/09/25 04:30 Sodium Chloride 1,000 ml @ 120 mls/hr Q8H20M IV 01/09/25 04:30 01/13/25 02:47 120 MLS/HR Acetaminophen/ Hydrocodone Bitart 1 tab Q4HP PRN PO 01/09/25 04:30 01/09/25 05:56 1 TAB Ondansetron HCl 4 mg Q4HP PRN IV 01/09/25 04:30 01/11/25 12:00 4 MG Docusate Sodium 100 mg BIDPRN PRN PO 01/09/25 04:30 01/12/25 21:19 100 MG Acetaminophen 650 mg Q6HP PRN PO 01/09/25 04:30 01/09/25 20:31 650 MG Morphine Sulfate 2 mg Q4HPRN PRN IV 01/09/25 04:30 01/13/25 11:36 2 MG Nitroglycerin 0.4 mg Q5MINP PRN SL 01/09/25 05:00 Morphine Sulfate 2 mg Q30M PRN IV 01/09/25 05:00 Ceftriaxone Sodium 50 ml @ 100 mls/hr DAILY@09 IV 01/10/25 09:00 01/13/25 10:11 100 MLS/HR Labetalol HCl 20 mg Q4HR PRN IV 01/09/25 15:15 01/10/25 08:10 20 MG Sucralfate 1 gm QIDACHS PO 01/10/25 17:00 01/13/25 06:19 1 GM Amlodipine Besylate 10 mg DAILY PO 01/11/25 10:00 01/12/25 09:40 10 MG Atorvastatin Calcium 40 mg HS PO 01/10/25 22:00 01/12/25 21:19 40 MG Benazepril HCl 40 mg DAILY PO 01/11/25 10:00 01/11/25 11:27 40 MG Patient Own Medication 1 tab DAILY PO 01/11/25 10:00 Aspirin 81 mg DAILY PO 01/12/25 10:45 01/12/25 11:49 81 MG Clopidogrel Bisulfate 75 mg DAILY PO 01/12/25 10:45 01/12/25 11:48 75 MG Enteral Nutritional Formula 240 ml TIDWM PO 01/12/25 18:00 01/12/25 18:00 240 ML Tamsulosin HCl 0.8 mg DAILY PO 01/13/25 10:00 Clonidine HCl 0.2 mg TID PO 01/13/25 14:00 UNV Metoprolol Tartrate 25 mg BID PO 01/13/25 22:00 UNV objective General Appearance: alert, no distress HEENT: EOMI, PERRLA, normal external inspect of ears, no icterus, no nasal drainage Neck: no carotid bruit, no jugular venous distention (JVD), no lymphadenopathy Chest: normal thorax Respiratory: clear to auscultation, normal air movement Cardiovascular: regular rate and rhythm, no diastolic murmur, no jugular venous distention (JVD), no rub, no systolic murmur Abdominal: soft, no hepatomegaly, no mass, no splenomegaly, no tenderness Genitourinary: grossly normal external Musculoskeletal: no joint tenderness, no swelling Extremities: normal pulses, no calf tenderness, no clubbing, no cyanosis, no edema Skin: no bruising, no jaundice, no rash Neurological: alert, No focal deficit laboratory and microbiology Laboratory Tests 01/13/25 07:18 Test 01/13/25 07:18 Range/Units Serum Glucose 137 H 74-106 mg/dL Problem List 1. Acute pancreatitis Monitor, GI consult 2. MARY superimposed on CKD (CKD 3b) Monitor, nephrology consult 3. Hypertensive urgency Monitor, antihypertensives 4. DM II with hyperglycemia Monitor, insulin ss 5. Complicated UTI Monitor, IV abx 6. Hx CVA Monitor Assessment/Plan Subjective Patient is awake and alert. Objective Patient was admitted for coffee ground emesis, which has since resolved. Hemoglobin has remained stable. There has been no signs or symptoms of active bleeding. Patient was seen by GI, there is no plan for endoscopy. Patient has a recent CVA last month at this facility, he had two CVAs while admitted. Patient was found to have a large vessel occlusion and left internal carotid artery stenosis. Patient was transferred to a tertiary center and he was discharged on aspirin and Plavix. Patient was prescribed a naproxen, however, Melida states he never took it. Patient also admitted with MARY with vasomotor nephropathy, which has since resolved. Patient had hypertensive urgency. Blood pressure medications were adjusted. Patient has a history of UTI, patient's on IV Rocephin, antibiotics will be prescribed for outpatient. Patient has diabetes, currently on an insulin sliding scale. Patient had acute pancreatitis which has also resolved. Patient is somewhat nauseous, but is tolerating a diet. Plan Continue current treatment. Patient has been cleared by GI to resume aspirin and Plavix. Patient will need to continue oral iron outpatient. Patient had urinary retention, urology was consulted. Coude was placed. Patient will follow up with urology outpatient. [place] planning for tomorrow. Dietary Evaluation Review Comments: For DM and CKD, follow a CCHO-60 Renal sepcific diet with protein restriction of 42g/day. Once pt is on routine dialysis, follw a CCHO-60 60 gram protein diet. Expected Outcomes/Goals: controlled DM, less uremic syndrome, gradual wt loss. Plan discussed with: Patient, Other VITOR SCHULTZ NP Jan 13, 2025 12:16
[2025-01-13] MEDS ORDERED: FERR1TAB36 PO (13:10)
[2025-01-13] MEDS: cloNIDine HCL 0.1 MG TAB PO SCH (14:00)
[2025-01-13 16:08] LABS: Basophils # (auto) 0 10 ^3/uL (0-0.2); Basophils % (auto) 0.6 % (0.0-2.0); Eosinophils # (auto) 0 10 ^3/uL (0-0.8); Eosinophils % (auto) 0.5 % (0.0-7.0); Hematocrit 39.8 % (41.0-53.0); Hemoglobin 12.9 g/dL (13.5-17.5); Lymphocytes # (auto) 1.6 10 ^3/uL (0.4-5.4); Mean Corpuscular Hemoglobin 28.7 pg (28.0-32.0); Mean Corpuscular Hgb Conc. 32.4 g/dL (32.0-36.0); Mean Corpuscular Volume 88.5 fL (80.0-100.0); Monocytes # (auto) 0.6 10 ^3/uL (0-1.3); Monocytes % (auto) 8.5 % (0.0-12.0); Neutrophils # (auto) 4.3 10 ^3/uL (1.6-8.6); Neutrophils % (auto) 65.4 % (37.0-80.0); Nucleated Red Blood Cells % 0.1 %; Platelet Count (auto) 208 10^3/uL (140-450); Red Cell Distribution Width 15.7 % (11.8-14.3); White Blood Cell 6.5 10^3/uL (4.4-10.8)
[2025-01-13] MEDS: METOPROLOL TARTRATE 25 MG TAB PO SCH (21:47)
--- NOTE | 2025-01-13 22:00 | DVHPN2 ---
Progress Note - Dictate Date Seen: Jan 13, 2025 Medical Necessity Reason Pt with a Central, PICC or Fol: No Subjective No new complaints ; abdominal pain is improving Patient's chart has been reviewed Patient's H&H is stable; no active bleeding is reported Patient has had multiple endoscopies in the last couple of years showing similar findings of large hiatal hernia and minimal esophagitis His last colonoscopy in July 2023 had shown some benign polyps that were removed Patient is undergoing urological workup for suspected bladder outlet or urinary retention vital signs Vital Sign Date Time Temp Pulse Resp B/P (MAP) Pulse Ox O2 Delivery O2 Flow Rate FiO2 01/13/25 21:47 88 159/89 01/13/25 21:00 98.3 18 95 98.3 01/13/25 08:00 Room Air* 0 21 Total Intake and Output 01/12/25 01/12/25 01/13/25 14:59 22:59 06:59 Intake Total 50 ml 800 ml 250 ml Balance 50 ml 800 ml 250 ml medications Current Medications Medications Dose Ordered Sig/Abilio Route Start Time Stop Time Status Last Admin Dose Admin Pantoprazole Sodium 40 mg DAILY IV 01/09/25 10:00 01/13/25 10:12 Diagnostic Test (Pha) 1 strip IQ4HR 01/09/25 08:00 01/13/25 20:37 Insulin Human Regular IQ4HR SC 01/09/25 08:00 01/13/25 20:46 Dextrose 50 ml UD PRN IV 01/09/25 04:30 Sodium Chloride 1,000 ml @ 120 mls/hr Q8H20M IV 01/09/25 04:30 01/13/25 08:30 Acetaminophen/ Hydrocodone Bitart 1 tab Q4HP PRN PO 01/09/25 04:30 01/09/25 05:56 Ondansetron HCl 4 mg Q4HP PRN IV 01/09/25 04:30 01/11/25 12:00 Docusate Sodium 100 mg BIDPRN PRN PO 01/09/25 04:30 01/13/25 21:48 Acetaminophen 650 mg Q6HP PRN PO 01/09/25 04:30 01/09/25 20:31 Morphine Sulfate 2 mg Q4HPRN PRN IV 01/09/25 04:30 01/13/25 11:36 Nitroglycerin 0.4 mg Q5MINP PRN SL 01/09/25 05:00 Morphine Sulfate 2 mg Q30M PRN IV 01/09/25 05:00 Ceftriaxone Sodium 50 ml @ 100 mls/hr DAILY@09 IV 01/10/25 09:00 01/13/25 10:11 Labetalol HCl 20 mg Q4HR PRN IV 01/09/25 15:15 01/13/25 16:32 Sucralfate 1 gm QIDACHS PO 01/10/25 17:00 01/13/25 21:47 Amlodipine Besylate 10 mg DAILY PO 01/11/25 10:00 01/12/25 09:40 Atorvastatin Calcium 40 mg HS PO 01/10/25 22:00 01/13/25 21:47 Benazepril HCl 40 mg DAILY PO 01/11/25 10:00 01/11/25 11:27 Patient Own Medication 1 tab DAILY PO 01/11/25 10:00 Aspirin 81 mg DAILY PO 01/12/25 10:45 01/12/25 11:49 Clopidogrel Bisulfate 75 mg DAILY PO 01/12/25 10:45 01/12/25 11:48 Enteral Nutritional Formula 240 ml TIDWM PO 01/12/25 18:00 01/13/25 12:00 Tamsulosin HCl 0.8 mg DAILY PO 01/13/25 10:00 Clonidine HCl 0.2 mg TID PO 01/13/25 14:00 01/13/25 21:47 Metoprolol Tartrate 25 mg BID PO 01/13/25 22:00 01/13/25 21:47 objective General: Alert oriented male lying in bed HEENT: NC/AT EOMI PERRLA O/P clear Heart: Regular rate and rhythm Abdomen: Soft non distended; NT Extremity: No clubbing cyanosis or edema laboratory and microbiology Laboratory Tests 01/13/25 15:46 01/13/25 07:18 Test 01/13/25 07:18 Range/Units Serum Glucose 137 H 74-106 mg/dL Prognosis PLAN No new complaints Resting comfortably in bed H/H stable No active GI bleed Pt needs anticoagulation due to 2 strokes Pt is on Aspirin and Plavix ; high risk for occult GI bleeding due to large hiatal hernia EGD and Colon completed recently Maintain on iron pills Avoid NSAIDS Maintain on PPI and Carafate Dietary Evaluation Review Comments: For DM and CKD, follow a CCHO-60 Renal sepcific diet with protein restriction of 42g/day. Once pt is on routine dialysis, follw a CCHO-60 60 gram protein diet. Expected Outcomes/Goals: controlled DM, less uremic syndrome, gradual wt loss. Plan discussed with: Patient KAREL PRITCHARD MD Jan 13, 2025 22:00
[2025-01-14 01:00] VITALS: BP 158/93; PULSE 89; RESP 18; TEMP 98.1; O2SAT 96
[2025-01-14 05:00] VITALS: BP 109/59; PULSE 90; RESP 17; TEMP 98.1; O2SAT 96
[2025-01-14 08:00] VITALS: PULSE 85; RESP 18; O2SAT 95
[2025-01-14] MEDS ORDERED: CEPH500C PO (08:26)
[2025-01-14] MEDS ORDERED: CLOP75TA70 PO (08:27)
[2025-01-14] MEDS ORDERED: ASPI81CH59 PO (08:27)
--- NOTE | 2025-01-14 08:28 | DVHDS2 ---
Discharge Summary Date of Admission Jan 09, 2025 at 04:56 Date of Discharge: Jan 14, 2025 Labs/Diagnostic Data: Laboratory Results Test 01/14/25 04:16 01/13/25 15:46 01/13/25 07:18 01/12/25 16:18 POC Glucose 192 mg/dl (70-106) White Blood Count 6.5 10^3/uL (4.4-10.8) Red Blood Count 4.50 10^6/uL (4.5-5.90) Hemoglobin 12.9 g/dL (13.5-17.5) Hematocrit 39.8 % (41.0-53.0) Mean Corpuscular Volume 88.5 fL (80.0-100.0) Mean Corpuscular Hemoglobin 28.7 pg (28.0-32.0) Mean Corpuscular Hemoglobin Concent 32.4 g/dL (32.0-36.0) Red Cell Distribution Width 15.7 % (11.8-14.3) Platelet Count 208 10^3/uL (140-450) Mean Platelet Volume 8.8 fL (6.9-10.8) Neutrophils (%) (Auto) 65.4 % (37.0-80.0) Lymphocytes (%) (Auto) 25.0 % (10.0-50.0) Monocytes (%) (Auto) 8.5 % (0.0-12.0) Eosinophils (%) (Auto) 0.5 % (0.0-7.0) Basophils (%) (Auto) 0.6 % (0.0-2.0) Neutrophils # (Auto) 4.3 10 ^3/uL (1.6-8.6) Lymphocytes # (Auto) 1.6 10 ^3/uL (0.4-5.4) Monocytes # (Auto) 0.6 10 ^3/uL (0-1.3) Eosinophils # (Auto) 0 10 ^3/uL (0-0.8) Basophils # (Auto) 0 10 ^3/uL (0-0.2) Nucleated Red Blood Cells 0.1 % Sodium Level 142 mmol/L (136-145) Potassium Level 4.4 mmol/L (3.5-5.1) Chloride Level 111 mmol/L (98-107) Carbon Dioxide Level 19 mmol/L (20-31) Anion Gap 12 (5-15) Blood Urea Nitrogen 28 mg/dL (9-23) Creatinine 1.69 mg/dL (0.700-1.30) Glomerular Filtration Rate Calc 44 mL/min (>90) BUN/Creatinine Ratio 16.6 (10.0-20.0) Serum Glucose 137 mg/dL (74-106) Calcium Level 8.9 mg/dL (8.7-10.4) Free Prostate Specific Antigen 0.16 ng/mL (N/A) Percent Free Prostate Specific Ag 12.3 % (.) Prostate Specific Antigen Total 1.3 ng/mL (0.0-4.0) Test 01/12/25 10:00 01/11/25 13:33 01/09/25 05:55 01/09/25 05:50 Lipase 25 U/L (12-53) Total Bilirubin 0.4 mg/dL (0.2-1.0) Aspartate Amino Transferase (AST) 17 U/L (13-40) Alanine Aminotransferase (ALT) 18 U/L (7-40) Alkaline Phosphatase 63 U/L (46-116) Total Protein 5.8 g/dL (5.7-8.2) Albumin 3.4 g/dL (3.2-4.8) Phosphorus Level 4.0 mg/dL (2.4-5.1) Magnesium Level 2.7 mg/dL (1.6-2.6) Hemoglobin A1c 7.8 % A1C (<5.7) Vitamin D 25-Hydroxy 16.3 ng/mL (30.0-100) Parathyroid Hormone (Intact) 155.3 pg/mL (18.4-80.1) Test 01/09/25 04:45 01/08/25 23:17 Urine Color Light-yellow (Yellow) Urine Clarity Turbid (Clear) Urine pH 5.5 (5.0-9.0) Urine Specific [place] 1.026 (1.001-1.035) Urine Protein 2+ (Negative) Urine Ketones Negative (Negative) Urine Blood Negative /uL (Negative) Urine Nitrite Negative (Negative) Urine Bilirubin Negative (Negative) Urine Urobilinogen Normal mg/dL (Negative) Urine Leukocyte Esterase 1+ /uL (Negative) Urine RBC 2 /hpf (0 - 3) Urine Microscopic WBC 63 /HPF (0-3) Urine Squamous Epithelial Cells Few /hpf (<5) Urine Bacteria Many /hpf (None Seen) Urine Creatinine 107.76 mg/dL (30.0-125.0) Urine Protein/Creatinine Ratio 2.28 Urine Sodium 21 mmol/L (40-220) Urine Glucose 4+ mg/dL (Normal) Urine Total Protein 245.2 mg/dL (1-14) Troponin I High Sensitivity 4 ng/L (</=54) Other Laboratory Tests 01/13/25 15:46 01/13/25 07:18 Brief Hx & Hospital Course: Patient was admitted on 01/09/2025 for abdominal pain related to acute pancreatitis. Patient was found to have hypertensive urgency. Blood pressure medications for adjusted and patient is more stable. Patient had acute kidney injury superimposed on CKD 3B, most likely vasomotor nephropathy. Patient's kidney function is now at baseline. Patient also had a complicated UTI. He will complete his antibiotic course outpatient. Patient is a diabetic. Will continue his home medications. Last month patient was admitted and he was found to have 2 CVAs while in the hospital. Patient has a history of large vessel occlusion and left internal carotid artery stenosis. Patient was started on aspirin and Plavix as recommended by tertiary center. Patient now presented with coffee-ground emesis however since admission he has had no further episodes. Patient was seen by GI and they did recommend to continue Protonix twice daily as well as Carafate 4 times a day. Hemoglobin has remained stable. Due to patient's recent CVA it is recommended to continue anticoagulation at this time since no further episodes of bleeding were found. Patient will follow-up with his PCP in 1 week. Patient was seen by physical therapy and he was able to ambulate 100 feet and patient was given a walker for home. had concerns that she has not been able to get any assistance for her . Patient's family did meet with social media strategist and per patient's Melida they will be changing insurances in order to obtain more help and physical therapy for patient outpatient. Patient also had urinary retention. Patient was seen by urologist Dr. Burak Taylor. Coud was placed. Patient was converted from a Gonzalez bag to a leg bag. He was instructed to DC home with a Gonzalez and he will follow-up with Dr. Burak Taylor outpatient for possible cystoscopy and management of urinary retention. The patient received proper medical treatment and medications. Vital signs, Imaging and Laboratory Work was monitored daily. All consults recommendations were followed as provided. There were no complaints or new complaints upon discharge, all questions and concerns were answered. Patient was advised to return to the ER or call 911 if any headaches, dizziness, shortness of breath, chest pain, bleeding, fevers, or worsening of medical condition. Patient/Family was counseled about treatment plan, medications, possible side effects, patient verbalized understanding. All questions were answered to the best of my ability. The patient symptoms improved and they are okay to be DC. Condition at Discharge: Stable Final Diagnosis/Problems List Coffee ground emesis- resolved. On asa and plavix for recent cva, large vessel occlusion and left internal carotid stenosis. Recent CVA x2 last month.Complicated UTI. Urinary retention. MARY superimposed on chronic kidney disease. Acute pancreatitis-resolved. Hypertensive urgency. meds adjusted. DM II with hyperglycemia Discharge Disposition: Home Discharge Instruct/Medications Diet: Consistent carbohydrate, Cardiac 2g Na,low cholest Activity: No Restrictions, As Tolerated Follow Up/Referral: pcp Dr. Amaro 1 week Medications: Continue asa and plavix- Had two strokes 1 month ago with large vessel occlusion and left internal carotid stenosis. Please continue carafate and protonix No Naprosyn or Motrin Discharge Statement: "Patient was advised to return to the ER or call 911 if any headaches, dizziness, shortness of breath, chest pain, abdominal pain, bleeding, fevers, or worsening of medical condition. Patient was counseled about treatment plan, medications, possible side effects, patientverbalized understanding. All questions were answered to the best of my ability. This discharge took greater then 30 minutes in planning, reviewing documentation, counseling the patient, and discussing with other team members." ASSESSMENT ASSESSMENT Assessment Coffee ground emesis- resolved. On asa and plavix for recent cva, large vessel occlusion and left internal carotid stenosis. Recent CVA x2 last month.Complicated UTI. Urinary retention. MARY superimposed on chronic kidney disease. Acute pancreatitis-resolved. Hypertensive urgency. meds adjusted. VITOR SCHULTZ NP Jan 14, 2025 08:28
[2025-01-14 09:01] VITALS: BP 135/79; PULSE 74; RESP 16; TEMP 98.3; O2SAT 98
[2025-01-14 11:13] VITALS: BP 135/79; PULSE 74; RESP 16; TEMP 36.8; O2SAT 98
[2025-01-14 12:51] VITALS: BP 177/83; PULSE 82; RESP 18; TEMP 98.9; O2SAT 97
== END 2025-01-14 12:30 | disposition home or self-care (01) | DRG 438 ==
LOC: ER 22:25 → EDBD 22:25 → OVERFLOW 01-09 04:56 → CENTRAL 01-09 18:50
PROVIDERS: ADMIT Nurse Practitioner; ATTEND Nurse Practitioner
DX: K85.90 Acute pancreatitis without necrosis or infection, unspecified (principal); N17.0 Acute kidney failure with tubular necrosis; E44.1 Mild protein-calorie malnutrition; N39.0 Urinary tract infection, site not specified; I16.1 Hypertensive emergency; I12.9 Hypertensive chronic kidney disease with stage 1 through stage 4 chronic kidney disease, or unspecified chronic kidney disease; E11.65 Type 2 diabetes mellitus with hyperglycemia; N18.32 Chronic kidney disease, stage 3b; E11.22 Type 2 diabetes mellitus with diabetic chronic kidney disease; E78.5 Hyperlipidemia, unspecified; N40.0 Benign prostatic hyperplasia without lower urinary tract symptoms; N32.3 Diverticulum of bladder; Z68.32 Body mass index [BMI] 32.0-32.9, adult; Z82.3 Family history of stroke; Z82.49 Family history of ischemic heart disease and other diseases of the circulatory system; Z86.73 Personal history of transient ischemic attack (TIA), and cerebral infarction without residual deficits; Z79.899 Other long term (current) drug therapy; Z79.2 Long term (current) use of antibiotics; Z79.84 Long term (current) use of oral hypoglycemic drugs
CPT/HCPCS: 36415; 71045; 74176; 80048; 80053; 81001; 82306; 82570; 82962; 83036; 83690; 83735; 83970; 84100; 84154; 84156; 84300; 84484; 85025; 87086; 93005; 97110; 97116; 97163; 97530; 99291; G0378; J1815; J2405; J2470

== ENCOUNTER 2025-01-25 04:46 | Inpatient (IN) | payer BC, MEDICAID ==
[~2025-01-25] VITALS: Ht 180.3 cm; Wt 76.1 kg
[~2025-01-25 04:46] MED LIST changes: +ASPI81CH59 PO; +CEPH500C PO; -CIPR-173 PO; +CLOP75TA70 PO; +FERR1TAB36 PO; -METF-371 PO; +METO-158 PO
--- NOTE | 2025-01-25 05:17 | ED.PDOC ---
History of Present Illness HPI Comments 69-year-old male with PMHx CVA x 2 weeks ago brought in by EMS presents with a chief complaint of nausea, vomiting, and hypertension x onset noon yesterday. Patients blood pressure upon arrival was 183/109 and typically takes Clonidine for his HTN. Patient is slow to respond, but answers appropriately. Patient is poor historian, no family at bedside to evaluate further or obtain further medical history. Chief Complaint: Headache Time Seen by MD: 05:07 Primary Care Provider: joseph Yang Notes: Medications, Allergies Allergies: Coded Allergies: NO KNOWN ALLERGIES (Unverified , 06/03/16) Home Meds Active Scripts Clopidogrel Bisulfate (CLOPIDOGREL) 75 Mg Tab, 1 TAB PO DAILY for 30 Days, #30 TAB Prov:VITOR SCHULTZ NP 01/14/25 Aspirin (Aspirin Low Dose) 81 Mg Chw, 1 TAB PO DAILY for 30 Days, #30 TAB.CHEW Prov:VITOR SCHULTZ NP 01/14/25 Cephalexin Monohydrate (Cephalexin) 500 Mg Cap, 1 CAP PO QID for 5 Days, #40 CAP Prov:VITOR SCHULTZ NP 01/14/25 Ferrous Sulfate (Iron (Ferrous Sulfate)) 50 Mg Tab, 50 MG PO BID for 30 Days, #60 TAB Prov:VITOR SCHULTZ NP 01/13/25 Metoprolol Tartrate (Metoprolol Tartrate) 50 Mg Tab, 50 MG PO BID for 30 Days, #60 TAB Prov:VITOR SCHULTZ NP 01/13/25 Clonidine Hydrochloride (Clonidine Hcl) 0.2 Mg Tab, 1 TAB PO TID, #90 TAB 5 Refills Prov:VITOR SCHULTZ NP 01/13/25 Sucralfate (CARAFATE) 1 Gm Tab, 1 GM OR QIDACHS for 30 Days, #120 TAB Prov:VITOR SCHULTZ NP 01/13/25 Pantoprazole Sodium Sesquihydr (Protonix) 40 Mg Tab, 40 MG PO BID for 30 Days, #60 TAB Prov:MARIONVITORFAIZAN Schmitz NP 01/13/25 Atorvastatin Calcium (ATORVASTATIN CALCIUM) 80 Mg Tab, 1 TAB PO DAILY, #30 TAB 5 Refills Prov:VITOR SCHULTZ NP 09/08/24 Reported Medications Dapagliflozin Propanediol (Farxiga) 10 Mg Tab, 1 TAB PO DAILY 09/03/24 Benazepril Hcl (Benazepril Hcl) 40 Mg Tab, 1 TAB PO DAILY 09/30/22 Amlodipine Besylate (Amlodipine Besylate) 10 Mg Tab, 1 TAB PO DAILY 09/30/22 Information Source: Emergency Med Personnel Mode of Arrival: EMS Severity: Moderate Timing: Hours Duration: Since onset Prehospital treatment: None Past Medical History PAST MEDICAL HISTORY: Anemia, CVA, DM, High Lipids, HTN Surgical History: Denies all surgeries Family History Family History: Family hx of stroke Social History Smoker: Non-Smoker Alcohol: Denies ETOH Use Drugs: Denies Drug Use Lives In: Home Constitutional: denies: chills, diaphoresis, fatigue, fever, malaise, sweats, weakness, others EENTM: denies: blurred vision, double vision, ear bleeding, ear discharge, ear drainage, ear pain, ear ringing, eye pain, eye redness, hearing loss, mouth pain, mouth swelling, nasal discharge, nose bleeding, nose congestion, nose pain, photophobia, tearing, throat pain, throat swelling, voice changes, others Respiratory: denies: cough, hemoptysis, orthopnea, SOB at rest, shortness of breath, SOB with excertion, stridor, wheezing, others Cardiovascular: denies: chest pain, dizzy spells, diaphoresis, Dyspnea on exertion, edema, irregular heart beat, left arm pain, lightheadedness, palpitations, PND, syncope, others Gastrointestinal: reports: nausea, vomiting; denies: abdomen distended, abdominal pain, blood streaked bowels, constipated, diarrhea, dysphagia, difficulty swallowing, hematemesis, melena, poor appetite, poor fluid intake, rectal bleeding, rectal pain, others Genitourinary: denies: burning, dysuria, flank pain, frequency, hematuria, incontinence, penile discharge, penile sore, pain, testicle pain, testicle swelling, urgency, others Neurological: denies: dizziness, fainting, headache, left sided numbness, left sided weakness, numbness, paresthesia, pre-existing deficit, right sided numbness, right sided weakness, seizure, speech problems, tingling, tremors, weakness, others Musculoskeletal: denies: back pain, gout, joint pain, joint swelling, muscle pain, muscle stiffness, neck pain, others Integumetry: denies: bruises, change in color, change in hair/nails, dryness, laceration, lesions, lumps, rash, wounds, others Allergic/Immunocompromised: denies: Difficulty Healing, Frequent Infections, Hives, Itching, others Hematologic/Lymphatic: denies: anemia, blood clots, easy bleeding, easy bruising, swollen glands, others Endocrine: denies: excessive hunger, excessive sweating, excessive thirst, excessive urination, flushing, intolerance to cold, intolerance to heat, unexplained weight gain, unexplained weight loss, others Psychiatric: denies: anxiety, bipolar disorder, depression, hopeless, panic disorder, schizophrenia, sleepless, suicidal, others All Other Systems: Reviewed and Negative Physical Exam General Appearance: No Apparent Distress, Normal HEENT: Normal ENT Inspection, Pharynx Normal, TMs Normal Neck: Full Range of Motion, Non-Tender, Normal, Normal Inspection Respiratory: Chest Non-Tender, Lungs Clear, No Accessory Muscle Use, No Respiratory Distress, Normal Breath Sounds Cardiovascular: No Edema, No JVD, No Murmur, No Gallop, Normal Peripheral Pulses, Regular Rate/Rhythm Breast Exam: Deferred Gastrointestinal: No Organomegaly, Non Tender, No Pulsatile Mass, Normal Bowel Sounds, Soft Genitalia: Deferred Pelvic: Deferred Rectal: Deferred Extremities: No calf tenderness, Normal capillary refill, Normal inspection, Normal range of motion, Non-tender, No pedal edema Musculoskeletal : Apperance: Normal Neurologic: Alert, doctorate of chiropractic II-XII nml as Tested, No Motor Deficits, Normal Affect, Normal Mood, No Sensory Deficits Cerebellar Function: Normal Reflexes: Normal Skin: Dry, Normal Color, Warm Lymphatic: No Adenopathy Was a procedure done? Was a procedure done?: No Differential Dx Considerations may include: CVA, hypertension, ACS, hypertensive emergency, electrolyte abnormality, viral syndrome X-Ray, Labs, Meds, VS Vital Signs Date Time Temp Pulse Resp B/P (MAP) Pulse Ox O2 Delivery O2 Flow Rate FiO2 01/25/25 09:37 99.1 01/25/25 08:57 Room Air* 0 21 01/25/25 07:52 120 143/83 (103) 96 01/25/25 06:30 97.8 103 33 126/75 (92) 96 97.8 01/25/25 06:14 188/106 01/25/25 05:33 Room Air* 0 21 01/25/25 05:33 97.8 103 14 188/106 (133) 96 97.8 01/25/25 05:07 112 01/25/25 04:46 98.4 118 16 184/121 (142) 98 98.4 Lab Test 01/25/25 08:00 01/25/25 07:30 01/25/25 06:33 Range/Units Urine Color Light-yellow Yellow Urine Clarity Clear Clear Urine pH 6.0 5.0-9.0 Urine Specific [place] 1.031 1.001-1.035 Urine Protein 3+ H Negative Urine Ketones 1+ H Negative Urine Blood 1+ H Negative /uL Urine Nitrite Negative Negative Urine Bilirubin Negative Negative Urine Urobilinogen Normal Negative mg/dL Urine Leukocyte Esterase Negative Negative /uL Urine RBC 4 0 - 3 /hpf Urine Microscopic WBC 1 0-3 /HPF Urine Squamous Epithelial Cells None seen <5 /hpf Urine Bacteria None seen None Seen /hpf Urine Glucose 4+ H Normal mg/dL Troponin I High Sensitivity 20 21 </=54 ng/L White Blood Count 13.5 H 4.4-10.8 10^3/uL Red Blood Count 4.56 4.5-5.90 10^6/uL Hemoglobin 13.7 13.5-17.5 g/dL Hematocrit 41.0 41.0-53.0 % Mean Corpuscular Volume 89.9 80.0-100.0 fL Mean Corpuscular Hemoglobin 30.0 28.0-32.0 pg Mean Corpuscular Hemoglobin Concent 33.4 32.0-36.0 g/dL Red Cell Distribution Width 15.4 H 11.8-14.3 % Platelet Count 296 140-450 10^3/uL Mean Platelet Volume 8.5 6.9-10.8 fL Neutrophils (%) (Auto) 89.8 H 37.0-80.0 % Lymphocytes (%) (Auto) 7.4 L 10.0-50.0 % Monocytes (%) (Auto) 2.6 0.0-12.0 % Eosinophils (%) (Auto) 0.1 0.0-7.0 % Basophils (%) (Auto) 0.1 0.0-2.0 % Neutrophils # (Auto) 12.1 H 1.6-8.6 10 ^3/uL Lymphocytes # (Auto) 1.0 0.4-5.4 10 ^3/uL Monocytes # (Auto) 0.3 0-1.3 10 ^3/uL Eosinophils # (Auto) 0 0-0.8 10 ^3/uL Basophils # (Auto) 0 0-0.2 10 ^3/uL Nucleated Red Blood Cells 0.1 % Prothrombin Time 10.9 9.3-11.8 sec Prothrombin Time INR 1.03 0.9-1.15 Activated Partial Thromboplast Time 21.4 L 24.5-34.5 SEC Sodium Level 139 136-145 mmol/L Potassium Level 4.3 3.5-5.1 mmol/L Chloride Level 102 98-107 mmol/L Carbon Dioxide Level 23 20-31 mmol/L Anion Gap 14 5-15 Blood Urea Nitrogen 12 9-23 mg/dL Creatinine 1.86 H 0.700-1.30 mg/dL Glomerular Filtration Rate Calc 39 >90 mL/min BUN/Creatinine Ratio 6.5 L 10.0-20.0 Serum Glucose 354 H 74-106 mg/dL Calcium Level 10.4 8.7-10.4 mg/dL Magnesium Level 2.3 1.6-2.6 mg/dL Total Bilirubin 0.4 0.2-1.0 mg/dL Aspartate Amino Transferase (AST) 26 13-40 U/L Alanine Aminotransferase (ALT) 26 7-40 U/L Alkaline Phosphatase 84 46-116 U/L Total Protein 7.8 5.7-8.2 g/dL Albumin 4.5 3.2-4.8 g/dL Current Medications Medications (Trade) Dose Ordered Sig/Abilio Route Start Time Stop Time Status Last Admin Ondansetron HCl (Zofran) 4 mg ONCE ONCE IV 01/25/25 05:30 01/25/25 05:31 DC 01/25/25 06:14 Hydralazine HCl (Apresoline Injection) 20 mg ONCE ONCE IV 01/25/25 05:30 01/25/25 05:31 DC 01/25/25 06:14 Acetaminophen (Tylenol Tablet) 650 mg ONCE ONCE PO 01/25/25 09:00 01/25/25 09:01 DC 01/25/25 09:37 Ketorolac Tromethamine (Toradol Injection) 15 mg ONCE ONCE IV 01/25/25 09:00 01/25/25 09:01 DC 01/25/25 09:14 Metoclopramide HCl (Reglan Injection) 10 mg ONCE ONCE IV 01/25/25 09:00 01/25/25 09:01 DC 01/25/25 09:14 Sodium Chloride 1,000 ml @ 1,000 mls/hr Q1H ONCE IV 01/25/25 09:00 01/25/25 09:59 01/25/25 09:13 Time of 1ST Reevaluation: 05:37 Reevaluation 1ST: Unchanged Time of 2ND Reevaluation: 09:48 (It was made aware that patient was having coffee-ground emesis and worsening abdominal pain. Water patient for antiemetics Protonix and a CT of abdomen.) Reevaluation 2ND: Worsened Patient Education/Counseling: Diagnosis, Treatment, Prognosis Family Education/Counseling: No Family Present Departure 1 Departure Time of Disposition: 08:21 (Patient presented with hypertension and symptoms concerning for hypertensive emergency. Patient is receiving iv blood pressure medications requiring intensive monitoring. Data: 1. I ordered and reviewed the result of at least 3 labs including a CBC, BMP, and Urinalysis. 2. I independently interpreted the following tests: CT Brain: Which appears benign. EKG which is Normal Sinus RhythmRisk:This patient has a high risk of morbidity due to further diagnostic testing or treatment and may suffer from an acute cardiac disorder. Workup reveals hypertensive emergency and patient should be admitted for further workup. and possible expert consultation. ) Impression: Primary Impression: Hypertensive urgency Additional Impression: Generalized weakness Disposition: ADMITTED INPATIENT Admit to: Med Surg Condition: Serious Critical Care Note Critical Care Time?: No Stability Stability form required: No Heart Score Heart Score: Heart Score Response (Comments) Value History N/A 0 EKG N/A 0 Age N/A 0 Risk Factors N/A 0 Troponin N/A 0 Total 0 I personally scribed for HESHAM MARQUES MD ([email or web address]) on 01/25/25 at 05:17. Electronically submitted by Tato Valles ([email or web address]). HESHAM MARQUES MD Jan 25, 2025 05:17 PETEY YOU MD Jan 25, 2025 08:22
[2025-01-25] MEDS: ONDANSETRON HCL 4 MG/2 ML VIAL IV ONE ×2 (05:34→11:10)
[2025-01-25] MEDS: hydrALAZINE HCL 20 MG/ML VL IV ONE (05:35)
--- NOTE | 2025-01-25 06:33 | ECG ---
[facility] Test Date: 2025-01-25 Test Time: 05:07:58 Pat Name: MORIS VELÁSQUEZ Department: ED Room: 0295T Gender: M Manager Cath Lab: [facility]ady : [id number] Requested By: HESHAM MARQUES Order Number: [id number] Reading MD: Daren De Los Santos Measurements Intervals [place] Rate: 112 P: 71 [place]: 146 QRS: -48 QRSD: 90 T: 70 QT: 332 QTc: 453 Interpretive Statements Sinus tachycardia LAD, consider left anterior fascicular block Electronically Signed On 01-25-2025 15:13:01 PDT by Daren De Los Santos Please click the below link to view image of tracing.
[2025-01-25 06:53] LABS: Basophils # (auto) 0 10 ^3/uL (0-0.2); Basophils % (auto) 0.1 % (0.0-2.0); Eosinophils # (auto) 0 10 ^3/uL (0-0.8); Eosinophils % (auto) 0.1 % (0.0-7.0); Hemoglobin 13.7 g/dL (13.5-17.5); Lymphocytes % (auto) 7.4 % (10.0-50.0); Mean Corpuscular Hgb Conc. 33.4 g/dL (32.0-36.0); Mean Corpuscular Volume 89.9 fL (80.0-100.0); Monocytes # (auto) 0.3 10 ^3/uL (0-1.3); Monocytes % (auto) 2.6 % (0.0-12.0); Neutrophils # (auto) 12.1 10 ^3/uL (1.6-8.6); Neutrophils % (auto) 89.8 % (37.0-80.0); Nucleated Red Blood Cells % 0.1 %; Platelet Count (auto) 296 10^3/uL (140-450); Red Blood Cells 4.56 10^6/uL (4.5-5.90); Red Cell Distribution Width 15.4 % (11.8-14.3); White Blood Cell 13.5 10^3/uL (4.4-10.8)
[2025-01-25 07:06] LABS: INR 1.03 (0.9-1.15); Partial Thromboplastin Time 21.4 SEC (24.5-34.5); Prothrombin Time 10.9 sec (9.3-11.8)
[2025-01-25 07:07] LABS: Alanine Aminotransferase 26 U/L (7-40); Albumin 4.5 g/dL (3.2-4.8); Alkaline Phosphatase 84 U/L (46-116); Anion Gap 14 (5-15); Aspartate Aminotransferase 26 U/L (13-40); BUN/Creatinine Ratio 6.5 (10.0-20.0); Blood Urea Nitrogen 12 mg/dL (9-23); Calcium 10.4 mg/dL (8.7-10.4); Carbon Dioxide 23 mmol/L (20-31); Chloride 102 mmol/L (98-107); Magnesium 2.3 mg/dL (1.6-2.6); Potassium 4.3 mmol/L (3.5-5.1); Sodium 139 mmol/L (136-145); Total Protein 7.8 g/dL (5.7-8.2)
[2025-01-25 07:08] LABS: Bilirubin, Total 0.4 mg/dL (0.2-1.0); Glucose 354 mg/dL (74-106)
--- NOTE | 2025-01-25 07:24 | DVH ---
EXAM: CT HEAD WITHOUT CONTRAST INDICATION: recent stroke, vomiting, uncontrolled HTN TECHNIQUE: CT of the head without intravenous contrast. Radiation Dose : 1. Head: CT Dose: CTDI volume is 64.96 mGy. Dose-length product is 1149.97 mGy*cm The dose indicators for CT are the volume Computed Tomography (CT) Dose Index (CTDIvol) and the Dose Length Product (DLP), and are measured in units of mGy and mGy-cm, respectively. These indicators are not patient dose, but values generated from the CT scanner acquisition factors. The report includes radiation exposure data for exposures received during this examination. COMPARISON: CT HEAD WITHOUT CONTRAST on DOS: 12/12/24, CT HEAD WITHOUT CONTRAST on DOS: 12/09/24, CT HE AD WITHOUT CONTRAST on DOS: 08/03/23, HEAD WITHOUT CONTRAST on DOS: 04/12/21 FINDINGS: There is no evidence of acute intracranial hemorrhage, extra-axial collection, mass effect, midline s hift, herniation or hydrocephalus. The ventricles, sulci and cisterns are age appropriate. The ham-white differentiation is intact. Patchy periventricular and subcortical white matter hypoattenuation is nonspecific but may be related to small vessel ischemic disease. The visualized paranasal sinuses and mastoid air cells are clear. The surrounding soft tissues and osseous structures are unremarkable. IMPRESSION: No acute intracranial abnormality. Radiation optimization: All CT scans at this facility use at least one of these dose optimization demetrio hniques: automated exposure control mA and/or kV adjustment per patient size (includes targeted exam s where dose is matched to clinical indication) or iterative reconstruction.
[2025-01-25 08:13] LABS: Urine Bacteria None Seen /hpf (None Seen)
[2025-01-25 08:36] LABS: Urine Blood 1+ /uL (Negative); Urine Clarity Clear (Clear); Urine Color Light-Yellow (Yellow); Urine Protein, UAD 3+ (Negative); Urine Specific Gravity 1.031 (1.001-1.035); Urine Squamous Epithelial Cell None Seen /hpf (<5); Urine Urobilinogen Normal (Negative); Urine WBC 1 /HPF (0-3)
--- NOTE | 2025-01-25 08:49 | DVH ---
XY CHEST PORTABLE, HISTORY: htn, weakness COMPARISON: XY CHEST PORTABLE on DOS: 01/08/25, XY CHEST XRAY 1 VIEW on DOS: 12/10/24, XY CHEST XRAY 1 VIEW on DOS: 09/07/24 XY CHEST PORTABLE on DOS: 01/08/25, XY CHEST XRAY 1 VIEW on DOS: 12/10/24, XY CHEST XRAY 1 VIEW on DOS: 09/07/24 TECHNICAL DATA: 1 view of the chest was obtained. FINDINGS: Lines and tubes: None Cardiomediastinal silhouette: normal Pulmonary vasculature: normal Lung expansion: normal Lung airspace: normal Lung interstitium: normal Pleura: normal Pneumothorax: no Bones: Unremarkable Other: no IMPRESSION: No acute intrathoracic abnormality.
[2025-01-25] MEDS: ACETAMINOPHEN 325 MG TAB PO ONE (09:00)
[2025-01-25] MEDS: SODIUM CHLORIDE 0.9% 1,000 ML IV ONE (09:13)
[2025-01-25] MEDS: METOCLOPRAMIDE HCL 5MG/ml INJ 2ml VIAL IV ONE (09:14)
[2025-01-25] MEDS: KETOROLAC TROMETH 30 MG/ML 1ML VIAL IV ONE (09:14)
--- NOTE | 2025-01-25 11:06 | DVHHP2 ---
Admitting Diagnosis: Elevated blood pressure History of Present Illness 69 year old male with history of CVA two weeks ago is complaining of HTN for one day. Patient also reports nausea and vomiting. Patient's blood pressure on arrival was 183/109. While in the emergency department the patient was evaluated by the provider. Patient will be admitted for further evaluation and treatment. I discussed admission with the patient/family and is in agreement to treatment plan. Patient Family History: Cardiovascular disease G8 BROTHER Cerebrovascular accident (CVA) G8 MOTHER FH: heart failure G8 FATHER Hypertension G8 MOTHER Allergies: Coded Allergies: NO KNOWN ALLERGIES (Unverified , 06/03/16) Home Meds Active Scripts Clopidogrel Bisulfate (CLOPIDOGREL) 75 Mg Tab, 1 TAB PO DAILY for 30 Days, #30 TAB Prov:MARIONVITORFAIZAN Schmitz NP 01/14/25 Aspirin (Aspirin Low Dose) 81 Mg Chw, 1 TAB PO DAILY for 30 Days, #30 TAB.CHEW Prov:VITOR SHCULTZ NP 01/14/25 Cephalexin Monohydrate (Cephalexin) 500 Mg Cap, 1 CAP PO QID for 5 Days, #40 CAP Prov:MARIONVITORFAIZAN Schmitz NP 01/14/25 Ferrous Sulfate (Iron (Ferrous Sulfate)) 50 Mg Tab, 50 MG PO BID for 30 Days, #60 TAB Prov:VITOR SCHULTZ NP 01/13/25 Metoprolol Tartrate (Metoprolol Tartrate) 50 Mg Tab, 50 MG PO BID for 30 Days, #60 TAB Prov:MARIONVITORFAIZAN Schmitz NP 01/13/25 Clonidine Hydrochloride (Clonidine Hcl) 0.2 Mg Tab, 1 TAB PO TID, #90 TAB 5 Refills Prov:VITOR SCHULTZ NP 01/13/25 Sucralfate (CARAFATE) 1 Gm Tab, 1 GM OR QIDACHS for 30 Days, #120 TAB Prov:MARIONVITORFAIZAN Schmitz NP 01/13/25 Pantoprazole Sodium Sesquihydr (Protonix) 40 Mg Tab, 40 MG PO BID for 30 Days, #60 TAB Prov:MARIONVITORFAIZAN Schmitz NP 01/13/25 Atorvastatin Calcium (ATORVASTATIN CALCIUM) 80 Mg Tab, 1 TAB PO DAILY, #30 TAB 5 Refills Prov:VITOR SCHULTZ NP 09/08/24 Reported Medications Dapagliflozin Propanediol (Farxiga) 10 Mg Tab, 1 TAB PO DAILY 09/03/24 Benazepril Hcl (Benazepril Hcl) 40 Mg Tab, 1 TAB PO DAILY 09/30/22 Amlodipine Besylate (Amlodipine Besylate) 10 Mg Tab, 1 TAB PO DAILY 09/30/22 Current Medications Current Medications Medications (Trade) Dose Ordered Sig/Abilio Route PRN Reason Start Time Stop Time Status Last Admin Nitroglycerin (Ntrostat Sublingual) 0.4 mg Q5MINP PRN SL FOR CHEST PAIN 01/25/25 11:15 Morphine Sulfate 2 mg Q30M PRN IV FOR CHEST PAIN 01/25/25 11:15 Clopidogrel Bisulfate (Plavix) 75 mg DAILY PO 01/26/25 10:00 Metoprolol Tartrate (Lopressor Tablet) 50 mg BID PO 01/25/25 22:00 Pantoprazole Sodium (Protonix Tablet) 40 mg BID PO 01/25/25 22:00 Sucralfate (Carafate Tab) 1 gm QIDACHS PO 01/25/25 11:30 Amlodipine Besylate (Norvasc Tablet) 10 mg DAILY PO 01/26/25 10:00 Aspirin 81 mg DAILY PO 01/26/25 10:00 Atorvastatin Calcium (Lipitor) 40 mg HS PO 01/25/25 22:00 Benazepril HCl (Lotensin Tablet) 40 mg DAILY PO 01/26/25 10:00 Clonidine HCl (Catapres Tablet) 0.2 mg BID PO 01/25/25 22:00 Ferrous Sulfate 325 mg TIDWM PO 01/25/25 18:00 Piperacillin Sod/ Tazobactam Sod 100 ml @ 100 mls/hr Q8H IV 01/25/25 20:00 Hydralazine HCl (Apresoline Injection) 10 mg Q6HP PRN IV SBP>150 01/25/25 15:00 01/25/25 16:30 DC 01/25/25 15:54 Labetalol HCl (Labetalol HCl) 20 mg Q4HPRN PRN IV SBP>150 01/25/25 16:30 01/25/25 16:59 Review of Systems Nausea Vomiting Vital Signs Vital Signs Date Time Temp Pulse Resp B/P (MAP) Pulse Ox O2 Delivery O2 Flow Rate FiO2 01/25/25 18:21 114 145/99 (114) 01/25/25 13:30 Room Air* 0 21 01/25/25 11:52 18 96 01/25/25 09:00 99.1 Physical Exam General Appearance: alert, no distress HEENT: EOMI, PERRLA, normal external inspect of ears, no icterus, no nasal drainage Neck: no carotid bruit, no jugular venous distention (JVD), no lymphadenopathy Chest: normal thorax Respiratory: clear to auscultation, normal air movement Cardiovascular: regular rate and rhythm, no diastolic murmur, no jugular venous distention (JVD), no rub, no systolic murmur Abdominal: soft, no hepatomegaly, no mass, no splenomegaly, no tenderness Musculoskeletal: no joint tenderness, no swelling Extremities: normal pulses, no calf tenderness, no clubbing, no cyanosis, no edema Skin: no bruising, no jaundice, no rash Neurological: alert, No focal deficit Results Labs Test 01/25/25 09:48 01/25/25 08:00 01/25/25 06:33 Range/Units Troponin I High Sensitivity 30 </=54 ng/L Urine Color Light-yellow Yellow Urine Clarity Clear Clear Urine pH 6.0 5.0-9.0 Urine Specific [place] 1.031 1.001-1.035 Urine Protein 3+ H Negative Urine Ketones 1+ H Negative Urine Blood 1+ H Negative /uL Urine Nitrite Negative Negative Urine Bilirubin Negative Negative Urine Urobilinogen Normal Negative mg/dL Urine Leukocyte Esterase Negative Negative /uL Urine RBC 4 0 - 3 /hpf Urine Microscopic WBC 1 0-3 /HPF Urine Squamous Epithelial Cells None seen <5 /hpf Urine Bacteria None seen None Seen /hpf Urine Glucose 4+ H Normal mg/dL White Blood Count 13.5 H 4.4-10.8 10^3/uL Red Blood Count 4.56 4.5-5.90 10^6/uL Hemoglobin 13.7 13.5-17.5 g/dL Hematocrit 41.0 41.0-53.0 % Mean Corpuscular Volume 89.9 80.0-100.0 fL Mean Corpuscular Hemoglobin 30.0 28.0-32.0 pg Mean Corpuscular Hemoglobin Concent 33.4 32.0-36.0 g/dL Red Cell Distribution Width 15.4 H 11.8-14.3 % Platelet Count 296 140-450 10^3/uL Mean Platelet Volume 8.5 6.9-10.8 fL Neutrophils (%) (Auto) 89.8 H 37.0-80.0 % Lymphocytes (%) (Auto) 7.4 L 10.0-50.0 % Monocytes (%) (Auto) 2.6 0.0-12.0 % Eosinophils (%) (Auto) 0.1 0.0-7.0 % Basophils (%) (Auto) 0.1 0.0-2.0 % Neutrophils # (Auto) 12.1 H 1.6-8.6 10 ^3/uL Lymphocytes # (Auto) 1.0 0.4-5.4 10 ^3/uL Monocytes # (Auto) 0.3 0-1.3 10 ^3/uL Eosinophils # (Auto) 0 0-0.8 10 ^3/uL Basophils # (Auto) 0 0-0.2 10 ^3/uL Nucleated Red Blood Cells 0.1 % Prothrombin Time 10.9 9.3-11.8 sec Prothrombin Time INR 1.03 0.9-1.15 Activated Partial Thromboplast Time 21.4 L 24.5-34.5 SEC Sodium Level 139 136-145 mmol/L Potassium Level 4.3 3.5-5.1 mmol/L Chloride Level 102 98-107 mmol/L Carbon Dioxide Level 23 20-31 mmol/L Anion Gap 14 5-15 Blood Urea Nitrogen 12 9-23 mg/dL Creatinine 1.86 H 0.700-1.30 mg/dL Glomerular Filtration Rate Calc 39 >90 mL/min BUN/Creatinine Ratio 6.5 L 10.0-20.0 Serum Glucose 354 H 74-106 mg/dL Calcium Level 10.4 8.7-10.4 mg/dL Magnesium Level 2.3 1.6-2.6 mg/dL Total Bilirubin 0.4 0.2-1.0 mg/dL Aspartate Amino Transferase (AST) 26 13-40 U/L Alanine Aminotransferase (ALT) 26 7-40 U/L Alkaline Phosphatase 84 46-116 U/L Total Protein 7.8 5.7-8.2 g/dL Albumin 4.5 3.2-4.8 g/dL Primary Diagnosis - Left internal carotid stenosis Medication, monitoring -Chronic Gonzalez catheter Monitor -Hypertensive urgency Antihypertensives, monitoring -DM type II with hyperglycemia Insulin sliding scale, diet, monitoring -CKD IIIb Daily labs, medication, monitoring - History of CVA monitoring Plan discussed with: Patient, Other VITOR SCHULTZ NP Jan 25, 2025 11:06
[2025-01-25] MEDS: PANTOPRAZOLE 40 MG/10 ML VIAL INJ IV ONE (11:10)
[2025-01-25] MEDS ORDERED: NITROGLYCERIN 0.4 MG SL TAB SL PRN (11:15)
[2025-01-25] MEDS ORDERED: MORPHINE SULFATE INJ 2 MG/ml SYRG IV PRN (11:15)
--- NOTE | 2025-01-25 11:15 | DVH ---
CT CT AB PEL WITH IV CON ONLY INDICATION: abdominal pain, coffee ground emesis EXAM DATE: 01/25/2025 10:44 AM COMPARISON: CT CT AB PEL WITH IV CON ONLY on DOS: 09/03/24 RADIATION DOSE: CTDIvol: 11.69 mGy, DLP: 682.45 mGy*cm PROCEDURE: Helical CT images were obtained of the abdomen and pelvis with IV contrast Sagittal and co elen reconstructions are provided. ORAL CONTRAST: None. ADDITIONAL IMAGES / REFORMATS: None All CT s cans at this medical facility are performed using dose modulation techniques as appropriate to a perf ormed exam including the following: Automated exposure control was utilized; adjustment of the MA and /or KV according to patient size; and use of iterative reconstruction technique. FINDINGS: LUNG BASE: Normal. LIVER: Normal. GALLBLADDER AND BILIARY TREE: No calcified gallstones. Normal caliber wall. No intra- or extrahepatic biliary ductal dilation. PANCREAS: Normal. SPLEEN: Normal. BOWEL: Stomach containing hiatal hernia. Mild colonic diverticulosis. Normal appendix. ADRENALS: Normal. KIDNEYS AND URETER: Normal. BLADDER: Gonzalez in the bladder. REPRODUCTIVE ORGANS: Normal. LYMPH NODES:No lymphadenopathy. PERITONEUM: No ascites or free air. No other fluid collection. VESSELS: Scattered atherosclerotic calcifications are noted. RETROPERITONEUM: Normal. ABDOMINAL WALL: Normal. BONES: Scattered osseous degenerative changes are noted. IMPRESSION: No acute intraabdominal abnormality. Stomach containing hiatal hernia. Mild colonic diverticulosis. Normal appendix.
[2025-01-25] MEDS: SUCRALFATE 1 GM TAB PO SCH (11:30)
[2025-01-25] MEDS: PIPERACILLIN-TAZOB 3.375GM 100 ML IV ONE (12:22)
[2025-01-25] MEDS: hydrALAZINE HCL 20 MG/ML VL IV PRN (15:54)
[2025-01-25] MEDS: LABETALOL HCL 20 MG/4 ML VL IV PRN (16:59)
[2025-01-25] MEDS: FERROUS SULFATE 325mg EC TAB PO SCH (17:08)
[2025-01-25 18:21] VITALS: BP 145/99; PULSE 114
[2025-01-25 20:00] VITALS: PULSE 118; PULSE 126; RESP 21; O2SAT 97
[2025-01-25] MEDS: PIPERACILLIN-TAZOB 3.375GM 100 ML IV SCH (20:49)
[2025-01-25] MEDS: ATORVASTATIN 20 MG TAB PO SCH (20:56)
[2025-01-25] MEDS: cloNIDine HCL 0.1 MG TAB PO SCH (20:57)
[2025-01-25] MEDS: PANTOPRAZOLE 40 MG TAB PO SCH (20:57)
[2025-01-25] MEDS: METOPROLOL TARTRATE 50 MG TAB PO SCH (20:57)
[2025-01-25 21:00] VITALS: BP 174/114; PULSE 126; RESP 21; TEMP 98.7; O2SAT 97
[2025-01-26] VITALS (10 sets, daily range): BP systolic 158–187; BP diastolic 80–107; PULSE 96–112; RESP 17–20; TEMP 98–98.6; O2SAT 94–97
[2025-01-26 07:17] LABS: Basophils # (auto) 0 10 ^3/uL (0-0.2); Basophils % (auto) 0.1 % (0.0-2.0); Eosinophils # (auto) 0 10 ^3/uL (0-0.8); Eosinophils % (auto) 0.1 % (0.0-7.0); Hematocrit 40.9 % (41.0-53.0); Hemoglobin 13.5 g/dL (13.5-17.5); Lymphocytes # (auto) 1.4 10 ^3/uL (0.4-5.4); Lymphocytes % (auto) 11.5 % (10.0-50.0); Mean Corpuscular Hgb Conc. 32.9 g/dL (32.0-36.0); Mean Corpuscular Volume 91.1 fL (80.0-100.0); Monocytes # (auto) 0.9 10 ^3/uL (0-1.3); Monocytes % (auto) 7.8 % (0.0-12.0); Neutrophils # (auto) 9.6 10 ^3/uL (1.6-8.6); Neutrophils % (auto) 80.5 % (37.0-80.0); Nucleated Red Blood Cells % 0.1 %; Platelet Count (auto) 208 10^3/uL (140-450); Red Blood Cells 4.49 10^6/uL (4.5-5.90); Red Cell Distribution Width 15.6 % (11.8-14.3); White Blood Cell 11.9 10^3/uL (4.4-10.8)
[2025-01-26 07:30] LABS: Alanine Aminotransferase 16 U/L (7-40); Albumin 4.2 g/dL (3.2-4.8); Alkaline Phosphatase 76 U/L (46-116); Anion Gap 12 (5-15); Aspartate Aminotransferase 16 U/L (13-40); BUN/Creatinine Ratio 7.6 (10.0-20.0); Blood Urea Nitrogen 17 mg/dL (9-23); Calcium 10.2 mg/dL (8.7-10.4); Carbon Dioxide 24 mmol/L (20-31)
[2025-01-26 07:31] LABS: Bilirubin, Total 0.6 mg/dL (0.2-1.0)
[2025-01-26 07:35] LABS: Chloride 108 mmol/L (98-107); Glucose 254 mg/dL (74-106); Potassium 4.3 mmol/L (3.5-5.1); Sodium 144 mmol/L (136-145)
[2025-01-26] MEDS: ASPirin 81 mg TAB PO SCH (09:12)
[2025-01-26] MEDS: CLOPIDOGREL BISULFATE 75 MG TAB PO SCH (09:13)
[2025-01-26] MEDS: amLODIPine BESYLATE 5 MG TAB PO SCH (09:13)
[2025-01-26] MEDS: BENAZEPRIL HCL 10 MG TAB PO SCH (09:13)
[2025-01-26] MEDS: cloNIDine 0.3 mg/24hr 7DAY PATCH TD ONE (11:45)
--- NOTE | 2025-01-26 11:54 | DVHPN2 ---
Progress Note - Dictate Date Seen: Jan 26, 2025 Medical Necessity Reason Pt with a Central, PICC or Fol: No vital signs Vital Sign Date Time Temp Pulse Resp B/P (MAP) Pulse Ox O2 Delivery O2 Flow Rate FiO2 01/26/25 11:45 187/106 01/26/25 11:39 98 01/26/25 08:48 98.0 20 97 98.0 01/25/25 20:00 Room Air* 0 21 Total Intake and Output 01/25/25 01/25/25 01/26/25 15:00 23:00 07:00 Intake Total 1000 ml 883 ml 100 ml Output Total 450 ml 250 ml Balance 1000 ml 433 ml -150 ml medications Current Medications Medications Dose Ordered Sig/Abilio Route Start Time Stop Time Status Last Admin Dose Admin Nitroglycerin 0.4 mg Q5MINP PRN SL 01/25/25 11:15 Morphine Sulfate 2 mg Q30M PRN IV 01/25/25 11:15 Clopidogrel Bisulfate 75 mg DAILY PO 01/26/25 10:00 Pantoprazole Sodium 40 mg BID PO 01/25/25 22:00 Sucralfate 1 gm QIDACHS PO 01/25/25 11:30 Amlodipine Besylate 10 mg DAILY PO 01/26/25 10:00 Aspirin 81 mg DAILY PO 01/26/25 10:00 Atorvastatin Calcium 40 mg HS PO 01/25/25 22:00 Benazepril HCl 40 mg DAILY PO 01/26/25 10:00 Clonidine HCl 0.2 mg BID PO 01/25/25 22:00 Ferrous Sulfate 325 mg TIDWM PO 01/25/25 18:00 Piperacillin Sod/ Tazobactam Sod 100 ml @ 100 mls/hr Q8H IV 01/25/25 20:00 01/26/25 04:44 100 MLS/HR Labetalol HCl 20 mg Q4HPRN PRN IV 01/25/25 16:30 01/26/25 11:39 20 MG objective General Appearance: alert, no distress HEENT: EOMI, PERRLA, normal external inspect of ears, no icterus, no nasal drainage Neck: no carotid bruit, no jugular venous distention (JVD), no lymphadenopathy Chest: normal thorax Respiratory: clear to auscultation, normal air movement Cardiovascular: regular rate and rhythm, no diastolic murmur, no jugular venous distention (JVD), no rub, no systolic murmur Abdominal: soft, no hepatomegaly, no mass, no splenomegaly, no tenderness Genitourinary: grossly normal external Musculoskeletal: no joint tenderness, no swelling Extremities: normal pulses, no calf tenderness, no clubbing, no cyanosis, no edema Skin: no bruising, no jaundice, no rash Neurological: alert, No focal deficit laboratory and microbiology Laboratory Tests 01/26/25 06:20 Test 01/26/25 06:20 Range/Units Serum Glucose 254 #H 74-106 mg/dL Problem List - Left internal carotid stenosis Medication, monitoring -Chronic Gonzalez catheter Monitor -Hypertensive urgency Antihypertensives, monitoring -DM type II with hyperglycemia Insulin sliding scale, diet, monitoring -CKD IIIb Daily labs, medication, monitoring - History of CVA monitoring Assessment/Plan Subjective: Patient is awake and alert. Objective: I spoke with patient and patient's at bedside, as well as primary RN. Patient does admit to being depressed. Patient was seen by telepsych. Zoloft was initiated today. Patient having difficulty swallowing. Patient did pass a swallow eval however primary RN is having some concerns for possible aspiration. Plan: Continue current treatment. Plan for barium swallow eval. GI consult. Plan discussed with: Patient, Other VITOR SCHULTZ NP Jan 26, 2025 11:54
[2025-01-26] MEDS ORDERED: DEXTROSE (50%) 50ML SYRG IV PRN (12:00)
--- NOTE | 2025-01-26 12:44 | DVHINCON2 ---
Date of service: Jan 26, 2025 History of Present Illness HPI Patient is a 69-year-old gentleman who presented with nausea/vomiting. Was admitted with high blood pressure/hypertensive emergency. It is of note that the patient was recently in the hospital and was found to have CVA. At that point the patient was transferred to high level of care for possible intervention for intracranial vascular stenosis. Cardiology was involved for cardiac aspects of care. There is no report of recent chest pain/loss of consciousness. Home Meds Active Scripts Clopidogrel Bisulfate (CLOPIDOGREL) 75 Mg Tab, 1 TAB PO DAILY for 30 Days, #30 TAB Prov:VITOR SCHULTZ ASHUTOSH 01/14/25 Aspirin (Aspirin Low Dose) 81 Mg Chw, 1 TAB PO DAILY for 30 Days, #30 TAB.CHEW Prov:VITOR SCHULTZ ASHUTOSH 01/14/25 Cephalexin Monohydrate (Cephalexin) 500 Mg Cap, 1 CAP PO QID for 5 Days, #40 CAP Prov:VITOR SCHULTZ ASHUTOSH 01/14/25 Ferrous Sulfate (Iron (Ferrous Sulfate)) 50 Mg Tab, 50 MG PO BID for 30 Days, #60 TAB Prov:VITOR SCHULTZ [employer] 01/13/25 Metoprolol Tartrate (Metoprolol Tartrate) 50 Mg Tab, 50 MG PO BID for 30 Days, #60 TAB Prov:VITOR SCHULTZ [employer] 01/13/25 Clonidine Hydrochloride (Clonidine Hcl) 0.2 Mg Tab, 1 TAB PO TID, #90 TAB 5 Refills Prov:VITOR SCHULTZ ASHUTOSH 01/13/25 Sucralfate (CARAFATE) 1 Gm Tab, 1 GM OR QIDACHS for 30 Days, #120 TAB Prov:VITOR SCHULTZ [employer] ATT[employer] 01/13/25 Pantoprazole Sodium Sesquihydr (Protonix) 40 Mg Tab, 40 MG PO BID for 30 Days, # 60 TAB Prov:VITOR SCHULTZ [employer] 01/13/25 Atorvastatin Calcium (ATORVASTATIN CALCIUM) 80 Mg Tab, 1 TAB PO DAILY, #30 TAB 5 Refills Prov:VITOR SCHULTZ [employer] 09/08/24 Reported Medications Dapagliflozin Propanediol (Farxiga) 10 Mg Tab, 1 TAB PO DAILY 09/03/24 Benazepril Hcl (Benazepril Hcl) 40 Mg Tab, 1 TAB PO DAILY 09/30/22 Amlodipine Besylate (Amlodipine Besylate) 10 Mg Tab, 1 TAB PO DAILY 09/30/22 Past Medical History Others Past medical history includes hypertension, diabetes mellitus, morbid obesity, history of CVA, repeated (last one: relatively recent), intracranial vascular stenosis, CKD, old history of GI bleeding anemia, GERD, hyperlipidemia, pancreatitis, hiatal hernia, bladder diverticuli and old history of hepatitis-C. Does have history of smoking. Denies alcohol and drug abuse. Family history is positive for hypertension/CVA and heart murmur Patient Family History: Cardiovascular disease G8 BROTHER Cerebrovascular accident (CVA) G8 MOTHER FH: heart failure G8 FATHER Hypertension G8 MOTHER Smoker: Positive Alocohol: None Drugs: None Review of Systems All Other Systems Fourteen point review of system was performed. Relevant findings as per above and as per HPI. Otherwise negative. H&P Exam Vital Signs Vital Signs Date Time Temp Pulse Resp B/P (MAP) Pulse Ox O2 Delivery O2 Flow Rate FiO2 01/26/25 11:45 187/106 01/26/25 11:39 98 01/26/25 08:48 98.0 20 97 98.0 01/25/25 20:00 Room Air* 0 21 General Appeara: Well developed Eye Exam: bilateral eye PERRL Nasal Exam: Normal inspection Pulmonary/Respiratory: Lungs clear Cardiovascular/Chest: Regular rate, Systolic murmur Peripheral Pulses: 2+ carotid (R), 2+ carotid (L), 2+ femoral (R), 2+ femoral (L), 2+ dorsalis pedis (R), 2+ dorsalis pedis (L), 2+ Radial (R), 2+ Radial (L) Abdominal Exam: Normal bowel sounds, Soft Labs/Xrays Labs Test 01/26/25 06:20 01/25/25 09:48 01/25/25 08:00 01/25/25 06:33 Range/Units White Blood Count 11.9 H 4.4-10.8 10^3/uL Red Blood Count 4.49 L 4.5-5.90 10^6/uL Hemoglobin 13.5 13.5-17.5 g/dL Hematocrit 40.9 L 41.0-53.0 % Mean Corpuscular Volume 91.1 80.0-100.0 fL Mean Corpuscular Hemoglobin 30.0 28.0-32.0 pg Mean Corpuscular Hemoglobin Concent 32.9 32.0-36.0 g/dL Red Cell Distribution Width 15.6 H 11.8-14.3 % Platelet Count 208 140-450 10^3/uL Mean Platelet Volume 8.9 6.9-10.8 fL Neutrophils (%) (Auto) 80.5 H 37.0-80.0 % Lymphocytes (%) (Auto) 11.5 10.0-50.0 % Monocytes (%) (Auto) 7.8 0.0-12.0 % Eosinophils (%) (Auto) 0.1 0.0-7.0 % Basophils (%) (Auto) 0.1 0.0-2.0 % Neutrophils # (Auto) 9.6 H 1.6-8.6 10 ^3/uL Lymphocytes # (Auto) 1.4 0.4-5.4 10 ^3/uL Monocytes # (Auto) 0.9 0-1.3 10 ^3/uL Eosinophils # (Auto) 0 0-0.8 10 ^3/uL Basophils # (Auto) 0 0-0.2 10 ^3/uL Nucleated Red Blood Cells 0.1 % Sodium Level 144 # 136-145 mmol/L Potassium Level 4.3 3.5-5.1 mmol/L Chloride Level 108 H 98-107 mmol/L Carbon Dioxide Level 24 20-31 mmol/L Anion Gap 12 5-15 Blood Urea Nitrogen 17 9-23 mg/dL Creatinine 2.24 H 0.700-1.30 mg/dL Glomerular Filtration Rate Calc 31 >90 mL/min BUN/Creatinine Ratio 7.6 L 10.0-20.0 Serum Glucose 254 #H 74-106 mg/dL Calcium Level 10.2 8.7-10.4 mg/dL Total Bilirubin 0.6 0.2-1.0 mg/dL Aspartate Amino Transferase (AST) 16 13-40 U/L Alanine Aminotransferase (ALT) 16 7-40 U/L Alkaline Phosphatase 76 46-116 U/L Total Protein 7.0 5.7-8.2 g/dL Albumin 4.2 3.2-4.8 g/dL Troponin I High Sensitivity 30 </=54 ng/L Urine Color Light-yellow Yellow Urine Clarity Clear Clear Urine pH 6.0 5.0-9.0 Urine Specific [place] 1.031 1.001-1.035 Urine Protein 3+ H Negative Urine Ketones 1+ H Negative Urine Blood 1+ H Negative /uL Urine Nitrite Negative Negative Urine Bilirubin Negative Negative Urine Urobilinogen Normal Negative mg/dL Urine Leukocyte Esterase Negative Negative /uL Urine RBC 4 0 - 3 /hpf Urine Microscopic WBC 1 0-3 /HPF Urine Squamous Epithelial Cells None seen <5 /hpf Urine Bacteria None seen None Seen /hpf Urine Glucose 4+ H Normal mg/dL Prothrombin Time 10.9 9.3-11.8 sec Prothrombin Time INR 1.03 0.9-1.15 Activated Partial Thromboplast Time 21.4 L 24.5-34.5 SEC Magnesium Level 2.3 1.6-2.6 mg/dL Assessment/Plan Plan Patient is a 69-year-old gentleman who presented with nausea/vomiting. Was admitted with high blood pressure/hypertensive emergency. It is of note that the patient was recently in the hospital and was found to have CVA. At that point the patient was transferred to high level of care for possible intervention for intracranial vascular stenosis. Cardiology was involved for cardiac aspects of care. There is no report of recent chest pain/loss of consciousness. Morbidly obese. Not in acute distress. Not using accessory muscles of breathing. No JVD. Speaks slowly. Mucosa is pink and wet. No goiter. No carotid bruit. Lungs are clear to auscultation. Cardiac: Regular, no thrill/gallop. Abdomen is soft. There is no gross mass. Bowel sound is positive. Dorsalis pedis is 2+ bilateral Past medical history includes hypertension, diabetes mellitus, morbid obesity, history of CVA, repeated (last one: relatively recent), intracranial vascular stenosis, CKD, old history of GI bleeding anemia, GERD, hyperlipidemia, pancreatitis, hiatal hernia, bladder diverticuli and old history of hepatitis-C. Does have history of smoking. Denies alcohol and drug abuse. Family history is positive for hypertension/CVA and heart murmur Echocardiogram of August 03, 2023 had reported mild concentric left ventricular hypertrophy, aortic sclerosis, ejection fraction of 65-70% and no vegetation Echocardiogram of August 2024 revealed ejection fraction of 60-65% Echocardiogram of December 10, 2024 reported concentric left ventricular hypertrophy, LVEF of 60-65%, trace MR CLAUDY of December 12, 2024 reported ejection fraction of 65% and no cardiac source for emboli WBC: 13.5 - 11.9 Creatinine: 1.86 - 2.24 Potassium: 4.3 - 4.3 Troponin (high sensitive): 21 - 20 - 30 Chest x-ray revealed: IMPRESSION: No acute intrathoracic abnormality CT of the head revealed: IMPRESSION: No acute intracranial abnormality. Abdomen/pelvic CT scan revealed: IMPRESSION: No acute intraabdominal abnormality. Stomach containing hiatal hernia. Mild colonic diverticulosis. Normal appendix. Tele reveals sinus rhythm/sinus tachycardia Patient is a 69-year-old gentleman who presented with nausea/vomiting. He is poor historian. Does have recent history of pancreatitis which could have contributed to the clinical picture? Does have recent history of CVA and is having poor functional capacity. Hypertensive emergency could have contributed to the clinical picture. There was question about swallowing capacity. Acute coronary syndrome is not considered at this point. Hypertensive emergency Nausea/vomiting Encephalopathy, metabolic/toxic/hypertensive CVA, recent Morbid obesity Diabetes mellitus Hypertension Hiatal hernia GI bleeding, history of CKD Bladder Diverticulum Cardiac suggestion for management: Manage on telemetry Follow-up electrolytes and kidney function tests and correct abnormalities EKG Control hypertension Agree to have clonidine patch until the patient is cleared to have oral medications Neurology evaluation is suggested Continue aspirin/Plavix Further evaluation and management depends on the above and clinical course A total of 75 minutes was spent reviewing the patient record, examining the patient, making a diagnostic and therapeutic plan, discussing this plan with medical personnel, following up on diagnostic studies and following the patient for clinical stability excluding any and all procedures. At least 50% of this time was spent in direct, [id number] contact. Thank you for allowing me to participate in this patient's care. Further recommendations will depend on patient's clinical course. Please do not hesitate to contact me if you have any questions or concerns. This medical document was created using electronic medical record system with [employer] computerized dictation system. Although this document has been carefully reviewed, there may still be some phonetic and typographical errors. These areas are purely typographical due to the imperfection of the software programs, and do not reflect any compromise in the patient's medical care. Plan discussed with: Patient, Other (nurse) NEVAEH FALCON MD Jan 26, 2025 12:44
--- NOTE | 2025-01-26 14:07 | DVHINCON2 ---
Date of service: Jan 26, 2025 Referring Physician Hospitalist Reason for Consultation Urinary retention History of bladder diverticulum History of Present Illness Patient is known to urology service for history of BPH, bladder diverticulum and urinary retention. He is currently admitted for stroke and has an indwelling catheter that was required to be placed on admission. He has immobility issue and is not a good surgical candidate. I will address his BPH symptoms with outpatient minimally invasive prostatic artery embolization. Please refer to my prior consultation reports noted in November and December of 2024 Past Medical History CVA BPH Bladder diverticulum Past Surgical History Cystoscopy Family History: Cardiovascular disease G8 BROTHER Cerebrovascular accident (CVA) G8 MOTHER FH: heart failure G8 FATHER Hypertension G8 MOTHER Allergies: Coded Allergies: NO KNOWN ALLERGIES (Unverified , 06/03/16) Home Meds Active Scripts Clopidogrel Bisulfate (CLOPIDOGREL) 75 Mg Tab, 1 TAB PO DAILY for 30 Days, #30 TAB Prov:ALVAREZNOAMVITOR Ainsley AURICULAR THERAPIST 01/14/25 Aspirin (Aspirin Low Dose) 81 Mg Chw, 1 TAB PO DAILY for 30 Days, #30 TAB.CHEW Prov:ALVAREZNOAMVITOR Ainsley AURICULAR THERAPIST 01/14/25 Cephalexin Monohydrate (Cephalexin) 500 Mg Cap, 1 CAP PO QID for 5 Days, #40 CAP Prov:MARIONVITOR M AURICULAR THERAPIST 01/14/25 Ferrous Sulfate (Iron (Ferrous Sulfate)) 50 Mg Tab, 50 MG PO BID for 30 Days, #60 TAB Prov:VITOR SCHULTZ Ainsley AURICULAR THERAPIST 01/13/25 Metoprolol Tartrate (Metoprolol Tartrate) 50 Mg Tab, 50 MG PO BID for 30 Days, #60 TAB Prov:MARIONVITOR Ainsley AURICULAR THERAPIST 01/13/25 Clonidine Hydrochloride (Clonidine Hcl) 0.2 Mg Tab, 1 TAB PO TID, #90 TAB 5 Refills Prov:MARIONVITOR Ainsley AURICULAR THERAPIST 01/13/25 Sucralfate (CARAFATE) 1 Gm Tab, 1 GM OR QIDACHS for 30 Days, #120 TAB Prov:ALVAREZNOAMVITOR M AURICULAR THERAPIST 01/13/25 Pantoprazole Sodium Sesquihydr (Protonix) 40 Mg Tab, 40 MG PO BID for 30 Days, #60 TAB Prov:MARIONVITOR M AURICULAR THERAPIST 01/13/25 Atorvastatin Calcium (ATORVASTATIN CALCIUM) 80 Mg Tab, 1 TAB PO DAILY, #30 TAB 5 Refills Prov:VITOR SCHULTZ AURICULAR THERAPIST 09/08/24 Reported Medications Dapagliflozin Propanediol (Farxiga) 10 Mg Tab, 1 TAB PO DAILY 09/03/24 Benazepril Hcl (Benazepril Hcl) 40 Mg Tab, 1 TAB PO DAILY 09/30/22 Amlodipine Besylate (Amlodipine Besylate) 10 Mg Tab, 1 TAB PO DAILY 09/30/22 Current Medications Current Medications Medications (Trade) Dose Ordered Sig/Abilio Route PRN Reason Start Time Stop Time Status Last Admin Clopidogrel Bisulfate (Plavix) 75 mg DAILY PO 01/26/25 10:00 Metoprolol Tartrate (Lopressor Tablet) 50 mg BID PO 01/25/25 22:00 01/26/25 11:53 DC Pantoprazole Sodium (Protonix Tablet) 40 mg BID PO 01/25/25 22:00 Amlodipine Besylate (Norvasc Tablet) 10 mg DAILY PO 01/26/25 10:00 Aspirin 81 mg DAILY PO 01/26/25 10:00 Atorvastatin Calcium (Lipitor) 40 mg HS PO 01/25/25 22:00 Benazepril HCl (Lotensin Tablet) 40 mg DAILY PO 01/26/25 10:00 Clonidine HCl (Catapres Tablet) 0.2 mg BID PO 01/25/25 22:00 Ferrous Sulfate 325 mg TIDWM PO 01/25/25 18:00 Piperacillin Sod/ Tazobactam Sod 100 ml @ 100 mls/hr Q8H IV 01/25/25 20:00 01/26/25 04:44 Hydralazine HCl (Apresoline Injection) 10 mg Q6HP PRN IV SBP>150 01/25/25 15:00 01/25/25 16:30 DC 01/25/25 15:54 Labetalol HCl (Labetalol HCl) 20 mg Q4HPRN PRN IV SBP>150 01/25/25 16:30 01/26/25 11:39 Sodium Chloride 1,000 ml @ 50 mls/hr Q20H IV 01/26/25 12:00 Diagnostic Test (Pha) (Accu-Chek Comfort Curve T) 1 strip ACHS 01/26/25 17:00 Insulin Human Regular (InsuLIN R) HS SC 01/26/25 22:00 Insulin Human Regular (InsuLIN R) AC SC 01/26/25 17:00 Dextrose 50 ml UD PRN IV Blood Sugar LESS THAN 60 01/26/25 12:00 Review of Systems Urinary retention Vital Signs Vital Signs Date Time Temp Pulse Resp B/P (MAP) Pulse Ox O2 Delivery O2 Flow Rate FiO2 01/26/25 11:45 187/106 01/26/25 11:39 98 01/26/25 08:48 98.0 20 97 98.0 01/25/25 20:00 Room Air* 0 21 Physical Exam Gonzalez catheter in place with clear urine Labs/Diagnostic Data Labs Test 01/26/25 06:20 01/25/25 09:48 01/25/25 08:00 01/25/25 06:33 Range/Units White Blood Count 11.9 H 4.4-10.8 10^3/uL Red Blood Count 4.49 L 4.5-5.90 10^6/uL Hemoglobin 13.5 13.5-17.5 g/dL Hematocrit 40.9 L 41.0-53.0 % Mean Corpuscular Volume 91.1 80.0-100.0 fL Mean Corpuscular Hemoglobin 30.0 28.0-32.0 pg Mean Corpuscular Hemoglobin Concent 32.9 32.0-36.0 g/dL Red Cell Distribution Width 15.6 H 11.8-14.3 % Platelet Count 208 140-450 10^3/uL Mean Platelet Volume 8.9 6.9-10.8 fL Neutrophils (%) (Auto) 80.5 H 37.0-80.0 % Lymphocytes (%) (Auto) 11.5 10.0-50.0 % Monocytes (%) (Auto) 7.8 0.0-12.0 % Eosinophils (%) (Auto) 0.1 0.0-7.0 % Basophils (%) (Auto) 0.1 0.0-2.0 % Neutrophils # (Auto) 9.6 H 1.6-8.6 10 ^3/uL Lymphocytes # (Auto) 1.4 0.4-5.4 10 ^3/uL Monocytes # (Auto) 0.9 0-1.3 10 ^3/uL Eosinophils # (Auto) 0 0-0.8 10 ^3/uL Basophils # (Auto) 0 0-0.2 10 ^3/uL Nucleated Red Blood Cells 0.1 % Sodium Level 144 # 136-145 mmol/L Potassium Level 4.3 3.5-5.1 mmol/L Chloride Level 108 H 98-107 mmol/L Carbon Dioxide Level 24 20-31 mmol/L Anion Gap 12 5-15 Blood Urea Nitrogen 17 9-23 mg/dL Creatinine 2.24 H 0.700-1.30 mg/dL Glomerular Filtration Rate Calc 31 >90 mL/min BUN/Creatinine Ratio 7.6 L 10.0-20.0 Serum Glucose 254 #H 74-106 mg/dL Calcium Level 10.2 8.7-10.4 mg/dL Total Bilirubin 0.6 0.2-1.0 mg/dL Aspartate Amino Transferase (AST) 16 13-40 U/L Alanine Aminotransferase (ALT) 16 7-40 U/L Alkaline Phosphatase 76 46-116 U/L Total Protein 7.0 5.7-8.2 g/dL Albumin 4.2 3.2-4.8 g/dL Troponin I High Sensitivity 30 </=54 ng/L Urine Color Light-yellow Yellow Urine Clarity Clear Clear Urine pH 6.0 5.0-9.0 Urine Specific [place] 1.031 1.001-1.035 Urine Protein 3+ H Negative Urine Ketones 1+ H Negative Urine Blood 1+ H Negative /uL Urine Nitrite Negative Negative Urine Bilirubin Negative Negative Urine Urobilinogen Normal Negative mg/dL Urine Leukocyte Esterase Negative Negative /uL Urine RBC 4 0 - 3 /hpf Urine Microscopic WBC 1 0-3 /HPF Urine Squamous Epithelial Cells None seen <5 /hpf Urine Bacteria None seen None Seen /hpf Urine Glucose 4+ H Normal mg/dL Prothrombin Time 10.9 9.3-11.8 sec Prothrombin Time INR 1.03 0.9-1.15 Activated Partial Thromboplast Time 21.4 L 24.5-34.5 SEC Magnesium Level 2.3 1.6-2.6 mg/dL Microbiology Date/Time Source Procedure Growth Status 01/25/25 15:50 Nose MRSA Screen - Final Complete Assessment BPH Urinary retention Chronic kidney disease Bladder diverticulum Chronic indwelling Gonzalez catheter Plan/Recommendation Patient to undergo monthly Gonzalez catheter exchanges We will obtain prostate volume measurement with transrectal ultrasound as outpatient Patient will be a candidate for prostatic artery embolization as outpatient Plan discussed with: Patient, Other MISSY SHETTY MD Jan 26, 2025 14:07
[2025-01-26] MEDS: SODIUM CHLORIDE 0.9% 1,000 ML IV SCH (14:23)
--- NOTE | 2025-01-26 14:34 | DVHINCON2 ---
Date of service: Jan 26, 2025 Referring Physician Vitor Dowell NP Reason for Consultation Acute kidney injury History of Present Illness Patient is 69 y/o male with PMH of Anemia, CVA, DM, High Lipids, HTN, BP and urine retention is admitted for N/V and high BP. On admission patient found to have elevated BUN and creatinine, nephrology is consulted for MARY Past Medical History BPH, urine retention, Anemia, CVA, CKD, DM, High Lipids, HTN Past Surgical History Surgical History: Denies all surgeries Allergies: Coded Allergies: NO KNOWN ALLERGIES (Unverified , 06/03/16) Home Meds Active Scripts Clopidogrel Bisulfate (CLOPIDOGREL) 75 Mg Tab, 1 TAB PO DAILY for 30 Days, #30 TAB Prov:MARIONVITORFAIZAN Schmitz NP 01/14/25 Aspirin (Aspirin Low Dose) 81 Mg Chw, 1 TAB PO DAILY for 30 Days, #30 TAB.CHEW Prov:MARIONVITORFAIZAN Schmitz NP 01/14/25 Cephalexin Monohydrate (Cephalexin) 500 Mg Cap, 1 CAP PO QID for 5 Days, #40 CAP Prov:MARIONVIOTRFAIZAN Schmitz NP 01/14/25 Ferrous Sulfate (Iron (Ferrous Sulfate)) 50 Mg Tab, 50 MG PO BID for 30 Days, #60 TAB Prov:MARIONVITORFAIZAN Schmitz NP 01/13/25 Metoprolol Tartrate (Metoprolol Tartrate) 50 Mg Tab, 50 MG PO BID for 30 Days, #60 TAB Prov:MARIONVITORFAIZAN Schmitz NP 01/13/25 Clonidine Hydrochloride (Clonidine Hcl) 0.2 Mg Tab, 1 TAB PO TID, #90 TAB 5 Refills Prov:MARIONVITORFAIZAN Schmitz NP 01/13/25 Sucralfate (CARAFATE) 1 Gm Tab, 1 GM OR QIDACHS for 30 Days, #120 TAB Prov:MARIONVITORFAIZAN Schmitz NP 01/13/25 Pantoprazole Sodium Sesquihydr (Protonix) 40 Mg Tab, 40 MG PO BID for 30 Days, #60 TAB Prov:MARIONVITORFAIZAN Schmitz NP 01/13/25 Atorvastatin Calcium (ATORVASTATIN CALCIUM) 80 Mg Tab, 1 TAB PO DAILY, #30 TAB 5 Refills Prov:VITOR SCHULTZ NP 09/08/24 Reported Medications Dapagliflozin Propanediol (Farxiga) 10 Mg Tab, 1 TAB PO DAILY 09/03/24 Benazepril Hcl (Benazepril Hcl) 40 Mg Tab, 1 TAB PO DAILY 09/30/22 Amlodipine Besylate (Amlodipine Besylate) 10 Mg Tab, 1 TAB PO DAILY 09/30/22 Current Medications Current Medications Medications (Trade) Dose Ordered Sig/Abilio Route PRN Reason Start Time Stop Time Status Last Admin Atorvastatin Calcium (Lipitor) 80 mg HS PO 01/27/25 22:00 Family History: Cardiovascular disease G8 BROTHER Cerebrovascular accident (CVA) G8 MOTHER FH: heart failure G8 FATHER Hypertension G8 MOTHER Review of Systems Can not be and H&P Exam Vital Signs/I&O Vital Sign Date Time Temp Pulse Resp B/P (MAP) Pulse Ox O2 Delivery O2 Flow Rate FiO2 01/28/25 08:56 108 162/95 01/28/25 08:30 98.7 18 97 98.7 01/28/25 07:51 Room Air* 0 21 Intake and Output 01/27/25 01/28/25 19:00 07:00 Intake Total 100 ml 200 ml Output Total 100 ml Balance 100 ml 100 ml Intake Oral 0 ml 0 ml IV Total 100 ml 200 ml Output Urine Total 100 ml Physical Exam Patient is awake but slow to respond Lungs clear to auscultation bilaterally Cardiac exam regular rate and rhythm GI soft nontender Gonzalez catheter Extremity no clubbing cyanosis or edema Neuro patient move all extremities Labs/Diagnostic Data Labs/Diagnostic Data Laboratory Tests Test 01/28/25 11:44 01/28/25 06:20 01/27/25 21:01 01/27/25 16:23 Range/Units POC Glucose 219 H 223 H 144 H 140 H 70-106 mg/dl Test 01/27/25 11:05 01/27/25 11:02 01/27/25 06:49 01/26/25 21:21 Range/Units Sodium Level 150 #H 136-145 mmol/L Potassium Level 4.0 3.5-5.1 mmol/L Chloride Level 113 H 98-107 mmol/L Carbon Dioxide Level 25 20-31 mmol/L Anion Gap 12 5-15 Blood Urea Nitrogen 21 9-23 mg/dL Creatinine 2.18 H 0.700-1.30 mg/dL Glomerular Filtration Rate Calc 32 >90 mL/min BUN/Creatinine Ratio 9.6 L 10.0-20.0 Serum Glucose 166 H 74-106 mg/dL Calcium Level 10.0 8.7-10.4 mg/dL Total Bilirubin 0.7 0.2-1.0 mg/dL Aspartate Amino Transferase (AST) 14 13-40 U/L Alanine Aminotransferase (ALT) 17 7-40 U/L Alkaline Phosphatase 74 46-116 U/L Total Protein 7.2 5.7-8.2 g/dL Albumin 4.3 3.2-4.8 g/dL POC Glucose 163 H 172 H 156 H 70-106 mg/dl Test 01/26/25 17:19 01/26/25 15:55 01/26/25 15:00 01/26/25 06:20 Range/Units POC Glucose 261 H 70-106 mg/dl Vitamin D 25-Hydroxy 11.3 L 30.0-100 ng/mL Urine Color Light-yellow Yellow Urine Clarity Clear Clear Urine pH 6.0 5.0-9.0 Urine Specific [place] 1.035 1.001-1.035 Urine Protein 2+ H Negative Urine Ketones 1+ H Negative Urine Blood 1+ H Negative /uL Urine Nitrite Negative Negative Urine Bilirubin Negative Negative Urine Urobilinogen Normal Negative mg/dL Urine Leukocyte Esterase Negative Negative /uL Urine RBC 15 0 - 3 /hpf Urine Microscopic WBC 3 0-3 /HPF Urine Squamous Epithelial Cells None seen <5 /hpf Urine Bacteria None seen None Seen /hpf Urine Creatinine 101.64 30.0-125.0 mg/dL Urine Protein/Creatinine Ratio 2.45 Urine Sodium 31 L 40-220 mmol/L Urine Glucose 4+ H Normal mg/dL Urine Total Protein 249.3 H 1-14 mg/dL White Blood Count 11.9 H 4.4-10.8 10^3/uL Red Blood Count 4.49 L 4.5-5.90 10^6/uL Hemoglobin 13.5 13.5-17.5 g/dL Hematocrit 40.9 L 41.0-53.0 % Mean Corpuscular Volume 91.1 80.0-100.0 fL Mean Corpuscular Hemoglobin 30.0 28.0-32.0 pg Mean Corpuscular Hemoglobin Concent 32.9 32.0-36.0 g/dL Red Cell Distribution Width 15.6 H 11.8-14.3 % Platelet Count 208 140-450 10^3/uL Mean Platelet Volume 8.9 6.9-10.8 fL Neutrophils (%) (Auto) 80.5 H 37.0-80.0 % Lymphocytes (%) (Auto) 11.5 10.0-50.0 % Monocytes (%) (Auto) 7.8 0.0-12.0 % Eosinophils (%) (Auto) 0.1 0.0-7.0 % Basophils (%) (Auto) 0.1 0.0-2.0 % Neutrophils # (Auto) 9.6 H 1.6-8.6 10 ^3/uL Lymphocytes # (Auto) 1.4 0.4-5.4 10 ^3/uL Monocytes # (Auto) 0.9 0-1.3 10 ^3/uL Eosinophils # (Auto) 0 0-0.8 10 ^3/uL Basophils # (Auto) 0 0-0.2 10 ^3/uL Nucleated Red Blood Cells 0.1 % Sodium Level 144 # 136-145 mmol/L Potassium Level 4.3 3.5-5.1 mmol/L Chloride Level 108 H 98-107 mmol/L Carbon Dioxide Level 24 20-31 mmol/L Anion Gap 12 5-15 Blood Urea Nitrogen 17 9-23 mg/dL Creatinine 2.24 H 0.700-1.30 mg/dL Glomerular Filtration Rate Calc 31 >90 mL/min BUN/Creatinine Ratio 7.6 L 10.0-20.0 Serum Glucose 254 #H 74-106 mg/dL Calcium Level 10.2 8.7-10.4 mg/dL Phosphorus Level 4.8 2.4-5.1 mg/dL Magnesium Level 2.6 1.6-2.6 mg/dL Total Bilirubin 0.6 0.2-1.0 mg/dL Aspartate Amino Transferase (AST) 16 13-40 U/L Alanine Aminotransferase (ALT) 16 7-40 U/L Alkaline Phosphatase 76 46-116 U/L Total Protein 7.0 5.7-8.2 g/dL Albumin 4.2 3.2-4.8 g/dL Parathyroid Hormone (Intact) 121.6 H 18.4-80.1 pg/mL Test 01/25/25 09:48 01/25/25 08:00 01/25/25 07:30 01/25/25 06:33 Range/Units Troponin I High Sensitivity 30 20 21 </=54 ng/L Urine Color Light-yellow Yellow Urine Clarity Clear Clear Urine pH 6.0 5.0-9.0 Urine Specific [place] 1.031 1.001-1.035 Urine Protein 3+ H Negative Urine Ketones 1+ H Negative Urine Blood 1+ H Negative /uL Urine Nitrite Negative Negative Urine Bilirubin Negative Negative Urine Urobilinogen Normal Negative mg/dL Urine Leukocyte Esterase Negative Negative /uL Urine RBC 4 0 - 3 /hpf Urine Microscopic WBC 1 0-3 /HPF Urine Squamous Epithelial Cells None seen <5 /hpf Urine Bacteria None seen None Seen /hpf Urine Glucose 4+ H Normal mg/dL White Blood Count 13.5 H 4.4-10.8 10^3/uL Red Blood Count 4.56 4.5-5.90 10^6/uL Hemoglobin 13.7 13.5-17.5 g/dL Hematocrit 41.0 41.0-53.0 % Mean Corpuscular Volume 89.9 80.0-100.0 fL Mean Corpuscular Hemoglobin 30.0 28.0-32.0 pg Mean Corpuscular Hemoglobin Concent 33.4 32.0-36.0 g/dL Red Cell Distribution Width 15.4 H 11.8-14.3 % Platelet Count 296 140-450 10^3/uL Mean Platelet Volume 8.5 6.9-10.8 fL Neutrophils (%) (Auto) 89.8 H 37.0-80.0 % Lymphocytes (%) (Auto) 7.4 L 10.0-50.0 % Monocytes (%) (Auto) 2.6 0.0-12.0 % Eosinophils (%) (Auto) 0.1 0.0-7.0 % Basophils (%) (Auto) 0.1 0.0-2.0 % Neutrophils # (Auto) 12.1 H 1.6-8.6 10 ^3/uL Lymphocytes # (Auto) 1.0 0.4-5.4 10 ^3/uL Monocytes # (Auto) 0.3 0-1.3 10 ^3/uL Eosinophils # (Auto) 0 0-0.8 10 ^3/uL Basophils # (Auto) 0 0-0.2 10 ^3/uL Nucleated Red Blood Cells 0.1 % Prothrombin Time 10.9 9.3-11.8 sec Prothrombin Time INR 1.03 0.9-1.15 Activated Partial Thromboplast Time 21.4 L 24.5-34.5 SEC Sodium Level 139 136-145 mmol/L Potassium Level 4.3 3.5-5.1 mmol/L Chloride Level 102 98-107 mmol/L Carbon Dioxide Level 23 20-31 mmol/L Anion Gap 14 5-15 Blood Urea Nitrogen 12 9-23 mg/dL Creatinine 1.86 H 0.700-1.30 mg/dL Glomerular Filtration Rate Calc 39 >90 mL/min BUN/Creatinine Ratio 6.5 L 10.0-20.0 Serum Glucose 354 H 74-106 mg/dL Calcium Level 10.4 8.7-10.4 mg/dL Magnesium Level 2.3 1.6-2.6 mg/dL Total Bilirubin 0.4 0.2-1.0 mg/dL Aspartate Amino Transferase (AST) 26 13-40 U/L Alanine Aminotransferase (ALT) 26 7-40 U/L Alkaline Phosphatase 84 46-116 U/L Total Protein 7.8 5.7-8.2 g/dL Albumin 4.5 3.2-4.8 g/dL Microbiology Date/Time Source Procedure Growth Status 01/25/25 15:50 Nose MRSA Screen - Final Complete Assessment Acute kidney injury superimposed Chronic Kidney Disease secondary hemodynamic mediated Hypertensive urgency Uncontrolled diabetes mellitus Hyperglycemia Intractable nausea vomiting History of CVA Hypernatremia due to dehydration Recommendations Closely monitor fluid and electrolytes Avoid nephrotoxic medications Gonzalez catheter Strict I&Os Blood pressure control I agree with hypotonic IV fluid hydration Insulin sliding scale Check urine electrolytes and urine protein excretion Check kidney ultrasound We will continue to follow Patient seen and examined by myself. I discussed my plan of care with the and the primary nurse at the bedside I would like to thank Vitor for the consult, will follow up Plan discussed with: Spouse, Other (Nurse) LAVELLE CASTELLON MD Jan 26, 2025 14:34
--- NOTE | 2025-01-26 15:06 | ECG ---
[facility] Test Date: 2025-01-26 Test Time: 11:17:08 Pat Name: MORIS VELÁSQUEZ Department: Room: 0295T B Gender: M [employer] Consultant: KAILEE : 1955 Requested By: VITOR SCHULTZ Order Number: [id number] Reading MD: Daren De Los Santos Measurements Intervals [place] Rate: 98 P: 52 NH: 137 QRS: -56 QRSD: 83 T: 65 QT: 343 QTc: 438 Interpretive Statements Sinus rhythm Inferior infarct, old Probable anteroseptal infarct, old Electronically Signed On 01-29-2025 20:22:23 PDT by Daren De Los Santos Please click the below link to view image of tracing.
[2025-01-26 15:10] LABS: Magnesium 2.6 mg/dL (1.6-2.6)
[2025-01-26 15:12] LABS: Phosphorus 4.8 mg/dL (2.4-5.1)
[2025-01-26] MEDS: NIFEdipine ER 30 MG TAB PO ONE (15:45)
--- NOTE | 2025-01-26 15:47 | DVHINCON2 ---
Date of Service if different f: Jan 26, 2025 Time of Service: 15:30 Consultation ([facility]) Consulting Physician: MAGDI BOYER MD Labs Laboratory Tests Test 01/25/25 06:33 01/25/25 08:00 01/25/25 09:48 01/26/25 06:20 Prothrombin Time 10.9 sec (9.3-11.8) Prothromb Time International Ratio 1.03 (0.9-1.15) Activated Partial Thromboplast Time 21.4 SEC (24.5-34.5) Urine Color Light-yellow (Yellow) Urine Clarity Clear (Clear) Urine pH 6.0 (5.0-9.0) Urine Specific [place] 1.031 (1.001-1.035) Urine Protein 3+ (Negative) Urine Ketones 1+ (Negative) Urine Blood 1+ /uL (Negative) Urine Nitrite Negative (Negative) Urine Bilirubin Negative (Negative) Urine Urobilinogen Normal mg/dL (Negative) Urine Leukocyte Esterase Negative /uL (Negative) Urine RBC 4 /hpf (0 - 3) Urine Microscopic WBC 1 /HPF (0-3) Urine Squamous Epithelial Cells None seen /hpf (<5) Urine Bacteria None seen /hpf (None Seen) Urine Glucose 4+ mg/dL (Normal) Troponin I High Sensitivity 30 ng/L (</=54) White Blood Count 11.9 10^3/uL (4.4-10.8) Red Blood Count 4.49 10^6/uL (4.5-5.90) Hemoglobin 13.5 g/dL (13.5-17.5) Hematocrit 40.9 % (41.0-53.0) Mean Corpuscular Volume 91.1 fL (80.0-100.0) Mean Corpuscular Hemoglobin 30.0 pg (28.0-32.0) Mean Corpuscular Hemoglobin Concent 32.9 g/dL (32.0-36.0) Red Cell Distribution Width 15.6 % (11.8-14.3) Platelet Count 208 10^3/uL (140-450) Mean Platelet Volume 8.9 fL (6.9-10.8) Neutrophils (%) (Auto) 80.5 % (37.0-80.0) Lymphocytes (%) (Auto) 11.5 % (10.0-50.0) Monocytes (%) (Auto) 7.8 % (0.0-12.0) Eosinophils (%) (Auto) 0.1 % (0.0-7.0) Basophils (%) (Auto) 0.1 % (0.0-2.0) Neutrophils # (Auto) 9.6 10 ^3/uL (1.6-8.6) Lymphocytes # (Auto) 1.4 10 ^3/uL (0.4-5.4) Monocytes # (Auto) 0.9 10 ^3/uL (0-1.3) Eosinophils # (Auto) 0 10 ^3/uL (0-0.8) Basophils # (Auto) 0 10 ^3/uL (0-0.2) Nucleated Red Blood Cells 0.1 % Sodium Level 144 mmol/L (136-145) Potassium Level 4.3 mmol/L (3.5-5.1) Chloride Level 108 mmol/L (98-107) Carbon Dioxide Level 24 mmol/L (20-31) Anion Gap 12 (5-15) Blood Urea Nitrogen 17 mg/dL (9-23) Creatinine 2.24 mg/dL (0.700-1.30) Glomerular Filtration Rate Calc 31 mL/min (>90) BUN/Creatinine Ratio 7.6 (10.0-20.0) Serum Glucose 254 mg/dL (74-106) Calcium Level 10.2 mg/dL (8.7-10.4) Phosphorus Level 4.8 mg/dL (2.4-5.1) Magnesium Level 2.6 mg/dL (1.6-2.6) Total Bilirubin 0.6 mg/dL (0.2-1.0) Aspartate Amino Transf (AST/SGOT) 16 U/L (13-40) Alanine Aminotransferase (ALT/SGPT) 16 U/L (7-40) Alkaline Phosphatase 76 U/L (46-116) Total Protein 7.0 g/dL (5.7-8.2) Albumin 4.2 g/dL (3.2-4.8) Parathyroid Hormone (Intact) 121.6 pg/mL (18.4-80.1) Microbiology Date/Time Source Procedure Growth Status 01/25/25 15:50 Nose MRSA Screen - Final Complete Appearance: Stated age Psychomotor activity: WNL Behavioral: Cooperative Eye contact: Appropriate Speech: WNL Affect: Mood Congruent Mood: Depressed Thought processes: Linear/Goal-directed Thought content: WNL Suicidal ideations: Absent Homicidal ideations: Absent Orientation: Person, Place, Time, Situation Memory intact: Recent Intellect: Average Abstractability: WNL Concentration: Adequate Attention: Adequate Judgement: WNL Insight: Good Vitals Vital Signs Date Time Temp Pulse Resp B/P (MAP) Pulse Ox O2 Delivery O2 Flow Rate FiO2 01/26/25 12:40 92 168/100 01/26/25 08:48 98.0 20 97 98.0 01/26/25 08:00 Room Air* 0 21 Current medications Current Medications Medications Dose Ordered Sig/Abilio Route Start Time Stop Time Status Last Admin Dose Admin Nitroglycerin 0.4 mg Q5MINP PRN SL 01/25/25 11:15 Morphine Sulfate 2 mg Q30M PRN IV 01/25/25 11:15 Clopidogrel Bisulfate 75 mg DAILY PO 01/26/25 10:00 Pantoprazole Sodium 40 mg BID PO 01/25/25 22:00 Sucralfate 1 gm QIDACHS PO 01/25/25 11:30 Amlodipine Besylate 10 mg DAILY PO 01/26/25 10:00 Aspirin 81 mg DAILY PO 01/26/25 10:00 Atorvastatin Calcium 40 mg HS PO 01/25/25 22:00 Benazepril HCl 40 mg DAILY PO 01/26/25 10:00 Clonidine HCl 0.2 mg BID PO 01/25/25 22:00 Ferrous Sulfate 325 mg TIDWM PO 01/25/25 18:00 Piperacillin Sod/ Tazobactam Sod 100 ml @ 100 mls/hr Q8H IV 01/25/25 20:00 01/26/25 14:17 100 MLS/HR Labetalol HCl 20 mg Q4HPRN PRN IV 01/25/25 16:30 01/26/25 11:39 20 MG Diagnostic Test (Pha) 1 strip ACHS 01/26/25 17:00 Insulin Human Regular HS SC 01/26/25 22:00 Insulin Human Regular AC SC 01/26/25 17:00 Dextrose 50 ml UD PRN IV 01/26/25 12:00 Sodium Chloride 1,000 ml @ 100 mls/hr Q10H IV 01/26/25 14:30 UNV Treatment plan discussed: With staff Medication adjusted: Yes Labs ordered: No Psychotherapy provided: No Type: Voluntary History of Present Illness Reason for Consult : psychiatric evaluation The patient was seen and evaluated at [facility] via telepsychiatry platform. 69 yr old male was admitted for hypertensive urgency. He had a recent stroke. He noted his energy has been weak. He has difficulty sleeping. He has low motivation and difficulty enjoying things. He reported he feels depressed and has a history of being treated for depression in the past. He stated that zoloft worked well for him in the past although he doesn't recall exactly when he was on it. He denied having SI/HI/AVH. Past Psychiatric History : No past hospitalization or suicide attempt. Diagnosed with depression in the past. Past Medical History : hypertension Substance use: Denied use of alcohol and other substances. Social History : Lives with . No children. 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 Diagnosis: F32.A Unspecified depressive disorder Formulation: This 69 yr old male appears to suffer from depression. He may polo efit from starting an SSRI to help reduce anxiety and help with depression. He does not warrant psychiatric hospitalization. Plan: 1. Safety. The patient is a low risk for self harm and may be managed as an outpatient. 2. Legal-voluntary. 3. Medications: Recommend starting Zoloft 50mg daily. Recommend discharging with prescription for thirty days and two refills. 4. Case discussed with EDGAR Silveira 5. Please recontact psychiatry for further follow up or reevaluation. Assessment/Diagnosis/Plan Reviewed: Labs, Medications, Previous Orders, Radiology MAGDI BOYER MD Jan 26, 2025 15:32
[2025-01-26 15:58] LABS: Urine Bacteria None Seen /hpf (None Seen)
[2025-01-26] MEDS ORDERED: ALBUTEROL SULF 2.5 MG/0.5ML(0.5%) NEB SOLN NEB PRN (16:15)
[2025-01-26] MEDS ORDERED: guaiFENesin-DM 100/10mg/5ml SYR PO PRN (16:15)
[2025-01-26] MEDS ORDERED: IPRATROPIUM BROM 0.5 MG/2.5ML INH SOL NEB PRN (16:15)
[2025-01-26] MEDS: SERTRALINE HCL 50 MG TAB PO SCH (16:15)
[2025-01-26] MEDS: ACCU-CHEK COMFORT CURVE STRIP VI SCH (16:16)
[2025-01-26 16:20] LABS: Urine Blood 1+ /uL (Negative); Urine Clarity Clear (Clear); Urine Color Light-Yellow (Yellow); Urine Protein, UAD 2+ (Negative); Urine Specific Gravity 1.035 (1.001-1.035); Urine Squamous Epithelial Cell None Seen /hpf (<5); Urine Urobilinogen Normal (Negative); Urine WBC 3 /HPF (0-3)
[2025-01-26 16:28] LABS: Creatinine, Urine 102.05 mg/dL (30.0-125.0)
[2025-01-26 16:30] LABS: Creatinine, Urine 101.64 mg/dL (30.0-125.0)
[2025-01-26 16:32] LABS: Urine Protein/Creatinine Ratio 2.45
[2025-01-26 16:39] LABS: Protein, Urine 249.3 mg/dL (1-14)
[2025-01-26] MEDS: InsuLIN REG 1unit/0.01ml Soln (100units/ml) SC SCH ×2 (17:38→22:16)
[2025-01-26] MEDS: SOD CHL 0.45% 1,000 ML IV SCH (17:42)
--- NOTE | 2025-01-26 22:16 | DVHINCON2 ---
Date of service: Jan 26, 2025 Referring Physician Chantel Schultz Reason for Consultation N/V dysphagia History of Present Illness Patient is 69 y/o male with PMH of Anemia, CVA, DM, High Lipids, HTN, BP and urine retention is admitted for N/V and high BP. On admission patient found to have elevated BUN and creatinine, GI was consulted for nausea vomiting. Patient has a known history of from large hiatal hernia and has multiple recent Endoscopies. Patient was seen at bedside and is nausea and vomiting have improved. Patient has been started on a diet and he feels better Family History: Cardiovascular disease G8 BROTHER Cerebrovascular accident (CVA) G8 MOTHER FH: heart failure G8 FATHER Hypertension G8 MOTHER Allergies: Coded Allergies: NO KNOWN ALLERGIES (Unverified , 06/03/16) Home Meds Active Scripts Clopidogrel Bisulfate (CLOPIDOGREL) 75 Mg Tab, 1 TAB PO DAILY for 30 Days, #30 TAB Prov:CHANTEL SCHULTZ STALLION MANAGER 01/14/25 Aspirin (Aspirin Low Dose) 81 Mg Chw, 1 TAB PO DAILY for 30 Days, #30 TAB.CHEW Prov:CHANTEL SCHULTZ STALLION MANAGER 01/14/25 Cephalexin Monohydrate (Cephalexin) 500 Mg Cap, 1 CAP PO QID for 5 Days, #40 CAP Prov:CHANTEL SCHULTZ NP 01/14/25 Ferrous Sulfate (Iron (Ferrous Sulfate)) 50 Mg Tab, 50 MG PO BID for 30 Days, #60 TAB Prov:CHANTEL SCHULTZ STALLION MANAGER 01/13/25 Metoprolol Tartrate (Metoprolol Tartrate) 50 Mg Tab, 50 MG PO BID for 30 Days, #60 TAB Prov:CHANTEL SCHULTZ NP 01/13/25 Clonidine Hydrochloride (Clonidine Hcl) 0.2 Mg Tab, 1 TAB PO TID, #90 TAB 5 Refills Prov:CHANTEL SCHULTZ STALLION MANAGER 01/13/25 Sucralfate (CARAFATE) 1 Gm Tab, 1 GM OR QIDACHS for 30 Days, #120 TAB Prov:CHANTEL SCHULTZ STALLION MANAGER 01/13/25 Pantoprazole Sodium Sesquihydr (Protonix) 40 Mg Tab, 40 MG PO BID for 30 Days, #60 TAB Prov:CHANTEL SCHULTZ STALLION MANAGER 01/13/25 Atorvastatin Calcium (ATORVASTATIN CALCIUM) 80 Mg Tab, 1 TAB PO DAILY, #30 TAB 5 Refills Prov:CHANTEL SCHULTZ STALLION MANAGER 09/08/24 Reported Medications Dapagliflozin Propanediol (Farxiga) 10 Mg Tab, 1 TAB PO DAILY 09/03/24 Benazepril Hcl (Benazepril Hcl) 40 Mg Tab, 1 TAB PO DAILY 09/30/22 Amlodipine Besylate (Amlodipine Besylate) 10 Mg Tab, 1 TAB PO DAILY 09/30/22 Current Medications Current Medications Medications (Trade) Dose Ordered Sig/Abilio Route PRN Reason Start Time Stop Time Status Last Admin Clopidogrel Bisulfate (Plavix) 75 mg DAILY PO 01/26/25 10:00 Amlodipine Besylate (Norvasc Tablet) 10 mg DAILY PO 01/26/25 10:00 Hold Aspirin 81 mg DAILY PO 01/26/25 10:00 Benazepril HCl (Lotensin Tablet) 40 mg DAILY PO 01/26/25 10:00 Sodium Chloride 1,000 ml @ 50 mls/hr Q20H IV 01/26/25 12:00 01/26/25 14:32 DC 01/26/25 14:23 Diagnostic Test (Pha) (Accu-Chek Comfort Curve T) 1 strip ACHS 01/26/25 17:00 01/26/25 16:16 Insulin Human Regular (InsuLIN R) HS SC 01/26/25 22:00 Insulin Human Regular (InsuLIN R) AC SC 01/26/25 17:00 01/26/25 17:38 Dextrose 50 ml UD PRN IV Blood Sugar LESS THAN 60 01/26/25 12:00 Sodium Chloride 1,000 ml @ 100 mls/hr Q10H IV 01/26/25 14:30 01/26/25 17:42 Nifedipine (Procardia Xl (Time-Release)) 60 mg DAILY PO 01/27/25 10:00 Sertraline HCl (Zoloft) 50 mg DAILY PO 01/26/25 16:15 Albuterol (Ventolin Medneb) 2.5 mg Q4HPRN PRN NEB SHORTNESS OF BREATH 01/26/25 16:15 Ipratropium [place] (Atrovent Medneb) 0.5 mg Q4HPRN PRN NEB SHORTNESS OF BREATH 01/26/25 16:15 Guaifenesin/ Dextromethorphan (Robitussin-Dm Liquid) 10 ml Q4HP PRN PO FOR COUGH 01/26/25 16:15 Vital Signs Vital Signs Date Time Temp Pulse Resp B/P (MAP) Pulse Ox O2 Delivery O2 Flow Rate FiO2 01/26/25 21:00 98.6 96 17 162/107 (125) 95 98.6 01/26/25 18:48 Room Air 0.0 01/26/25 18:48 21 Physical Exam General Appeara: Well developed Eye Exam: bilateral eye PERRL Nasal Exam: Normal inspection Pulmonary/Respiratory: Lungs clear Cardiovascular/Chest: Regular rate, Systolic murmur Abdominal Exam: Normal bowel sounds, Soft Labs/Diagnostic Data Labs Test 01/26/25 21:21 01/26/25 15:55 01/26/25 15:00 01/26/25 06:20 Range/Units POC Glucose 156 H 70-106 mg/dl Vitamin D 25-Hydroxy 11.3 L 30.0-100 ng/mL Urine Color Light-yellow Yellow Urine Clarity Clear Clear Urine pH 6.0 5.0-9.0 Urine Specific [place] 1.035 1.001-1.035 Urine Protein 2+ H Negative Urine Ketones 1+ H Negative Urine Blood 1+ H Negative /uL Urine Nitrite Negative Negative Urine Bilirubin Negative Negative Urine Urobilinogen Normal Negative mg/dL Urine Leukocyte Esterase Negative Negative /uL Urine RBC 15 0 - 3 /hpf Urine Microscopic WBC 3 0-3 /HPF Urine Squamous Epithelial Cells None seen <5 /hpf Urine Bacteria None seen None Seen /hpf Urine Creatinine 101.64 30.0-125.0 mg/dL Urine Protein/Creatinine Ratio 2.45 Urine Sodium 31 L 40-220 mmol/L Urine Glucose 4+ H Normal mg/dL Urine Total Protein 249.3 H 1-14 mg/dL White Blood Count 11.9 H 4.4-10.8 10^3/uL Red Blood Count 4.49 L 4.5-5.90 10^6/uL Hemoglobin 13.5 13.5-17.5 g/dL Hematocrit 40.9 L 41.0-53.0 % Mean Corpuscular Volume 91.1 80.0-100.0 fL Mean Corpuscular Hemoglobin 30.0 28.0-32.0 pg Mean Corpuscular Hemoglobin Concent 32.9 32.0-36.0 g/dL Red Cell Distribution Width 15.6 H 11.8-14.3 % Platelet Count 208 140-450 10^3/uL Mean Platelet Volume 8.9 6.9-10.8 fL Neutrophils (%) (Auto) 80.5 H 37.0-80.0 % Lymphocytes (%) (Auto) 11.5 10.0-50.0 % Monocytes (%) (Auto) 7.8 0.0-12.0 % Eosinophils (%) (Auto) 0.1 0.0-7.0 % Basophils (%) (Auto) 0.1 0.0-2.0 % Neutrophils # (Auto) 9.6 H 1.6-8.6 10 ^3/uL Lymphocytes # (Auto) 1.4 0.4-5.4 10 ^3/uL Monocytes # (Auto) 0.9 0-1.3 10 ^3/uL Eosinophils # (Auto) 0 0-0.8 10 ^3/uL Basophils # (Auto) 0 0-0.2 10 ^3/uL Nucleated Red Blood Cells 0.1 % Sodium Level 144 # 136-145 mmol/L Potassium Level 4.3 3.5-5.1 mmol/L Chloride Level 108 H 98-107 mmol/L Carbon Dioxide Level 24 20-31 mmol/L Anion Gap 12 5-15 Blood Urea Nitrogen 17 9-23 mg/dL Creatinine 2.24 H 0.700-1.30 mg/dL Glomerular Filtration Rate Calc 31 >90 mL/min BUN/Creatinine Ratio 7.6 L 10.0-20.0 Serum Glucose 254 #H 74-106 mg/dL Calcium Level 10.2 8.7-10.4 mg/dL Phosphorus Level 4.8 2.4-5.1 mg/dL Magnesium Level 2.6 1.6-2.6 mg/dL Total Bilirubin 0.6 0.2-1.0 mg/dL Aspartate Amino Transferase (AST) 16 13-40 U/L Alanine Aminotransferase (ALT) 16 7-40 U/L Alkaline Phosphatase 76 46-116 U/L Total Protein 7.0 5.7-8.2 g/dL Albumin 4.2 3.2-4.8 g/dL Parathyroid Hormone (Intact) 121.6 H 18.4-80.1 pg/mL Test 01/25/25 09:48 01/25/25 06:33 Range/Units Troponin I High Sensitivity 30 </=54 ng/L Prothrombin Time 10.9 9.3-11.8 sec Prothrombin Time INR 1.03 0.9-1.15 Activated Partial Thromboplast Time 21.4 L 24.5-34.5 SEC Microbiology Date/Time Source Procedure Growth Status 01/25/25 15:50 Nose MRSA Screen - Final Complete Operative Report DATE OF OPERATION: 09/05/24 PROCEDURE: Upper Endoscopy with biopsy. PREOPERATIVE INDICATION: The patient is a 69 -year-old male undergoing endoscopy for evaluation of coffee-ground emesis POSTOPERATIVE DIAGNOSES: 1. Large hiatal hernia about 10-12 cm with organoaxial rotation but no obstruction or significant volvulus Short-segment Rivera's but no evidence of acute esophagitis or ulceration 2. Mild gastritis within hiatal hernia sac and in the stomach 3. Slight difficulty in entering into the duodenal because of the large hiatal hernia but otherwise normal examination up to the 2nd and 3rd part of the duodenal Problems(with codes): (1) Dysphagia (2) N&V (nausea and vomiting) (3) Hypertensive urgency (4) Hiatal hernia (5) Hepatitis C antibody positive in blood (6) Hypertensive emergency (7) CVA (cerebral vascular accident) Plan/Recommendation Plan Pt is on Aspirin and Plavix ; high risk for occult GI bleeding due to large hiatal hernia EGD and Colon completed recently Nausea and vomiting likely related to hypertensive urgency and acute on chronic renal failure He also has underlying history of large hiatal hernia which could be contributing to his symptoms of dysphagia Patient would be benefitting from a pureed diet Maintain on iron pills Avoid NSAIDS; Zofran as needed for nausea and vomiting Maintain on PPI and Carafate And follow up patient with you Plan discussed with: Patient KAREL PRITCHARD MD Jan 26, 2025 22:16
--- NOTE | 2025-01-26 23:12 | DVHINCON2 ---
Date of service: Jan 26, 2025 Referring Physician Vitor Reason for Consultation History of CVA History of Present Illness Mr. Goldsmith is a 69 years old right-handed gentleman with a history of hypertension, diabetes, dyslipidemia, he came to the [facility] [place] on 01/25/2025 with a chief complaint of hypertension, nausea, vomiting. At this time, he is alert, fully oriented, he looks weak, he speak with weak voice I saw him on 08/20/23 for syncope, 09/03/24 for metabolic encephalopathy (MRI: acute strokes), 12/09/2024 for possible stroke (MRI: Acute strokes) Before he came to the hospital, he developed headache, nausea, vomiting, general weakness with left-sided more affected, per ER note, blood pressure was 183/109 on arrival, and his blood pressure has been very high in the hospital He claims that he was on aspirin, Plavix and a cholesterol medication at home He does not snore He was chills and she has been at this time when I saw him, he reports feeling cold The following is a summary of his stroke history On 12/08/2024, after walking in his home, he collapsed because both leg weakness, and he found he could not move the left arm and leg, MRI in the hospital confirmed multiple acute strokes. The patient was has a good recovery. On 09/01/2024, he had nausea, abdominal pain, and he vomited a lot of coffee- ground emesis, when he was standing up, he had dizziness/lightheadedness, follow up passing out and waking up on the floor, he reported the passing out was very briefly, and on waking up he was consciousness everything, but with general weakness, diffuse code sweating, MRI brain scan showed evidence of strokes Urinalysis, 01/26/2025: WBC: 3, urine leukocyte esterase: Negative WBC/HB/PLT/MCV, 01/26/2025: 11.9/13.5/208/91.1 HGB A1c, 07/2023: 6.1, 12/09/2024: 7.6 BUN/CR, 09/03/2024: 22/1.81, 12/09/2024: 12/1.62, 02/25/2025: 17/2.24 GFR, 01/26/2025: 31 Liver function tests, 01/26/2025: Unremarkable TG/HDL/LDL/HDL, 12/09/2024: 172/277/203/46 Vitamin B12, 04/2024: 622 TSH, 04/2020 4:2.29 CLAUDY, 12/12/2024: No evidence cardiac emboli source Echocardiogram, 12/10/2024: LVEF was 60-65%. Carotid Doppler, 09/04/2025: No hemodynamically significant stenosis within the carotid arteries MRI head, 08/03/2023: No acute findings. Small vessel chronic ischemic changes MRI head, 09/04/2024: Few small foci of acute ischemia, suspect embolic infarcts. Clinical correlation and continued follow-up is recommended. Consider further evaluation with CTA or MRA of the head and neck MRI head, 12/09/2024: 1. Small foci of acute ischemia in the right thalamus and left parietal cortex. No intracranial hemorrhage. 2. Extensive chronic microvascular ischemic changes, advanced for patient's age. MRI head, 12/13/2024: 1. Acute infarcts in the right prasad radiata , left parietal subcortical region, posteromedial left temporal lobe. Given the bilaterality, correlate for thromboembolic, vasospastic etiology 2. Moderate to advanced chronic microvascular ischemic changes. 3. Mild global cerebral volume loss (the right basal ganglia acute stroke is enlarged, new strokes in the left parietal lobe) MRA brain, neck, 12/09/2024: 1. High-grade stenosis in the left intracranial ICA. 2. Short-segment occlusion of distal M2 segment of the left MCA. 3. Short- segment moderate stenosis of the proximal A2 segment of the left GILMA. 4. Short- segment occlusion of A3 segment of the right GILMA. 5. Moderate stenosis of the proximal basilar artery. 6. Hypoplastic right vertebral artery short-segment foci of high-grade stenosis and occlusion of the V3 segment Past Medical History Hypertension, diabetes, dyslipidemia, GI bleeding Past Surgical History No surgeries Family History: Cardiovascular disease G8 BROTHER Cerebrovascular accident (CVA) G8 MOTHER FH: heart failure G8 FATHER Hypertension G8 MOTHER Family History Hypertension, diabetes, heart disease, stroke Social History He was a tobacco smoker, but no history of alcohol recreational substance abuse Allergies: Coded Allergies: NO KNOWN ALLERGIES (Unverified , 06/03/16) Home Meds Active Scripts Clopidogrel Bisulfate (CLOPIDOGREL) 75 Mg Tab, 1 TAB PO DAILY for 30 Days, #30 TAB Prov:VITOR SCHULTZ OIL FIELD EQUIPMENT MECHANIC SUPERVISOR 01/14/25 Aspirin (Aspirin Low Dose) 81 Mg Chw, 1 TAB PO DAILY for 30 Days, #30 TAB.CHEW Prov:VITOR SCHULTZ OIL FIELD EQUIPMENT MECHANIC SUPERVISOR 01/14/25 Cephalexin Monohydrate (Cephalexin) 500 Mg Cap, 1 CAP PO QID for 5 Days, #40 CAP Prov:VITOR SCHULTZ OIL FIELD EQUIPMENT MECHANIC SUPERVISOR 01/14/25 Ferrous Sulfate (Iron (Ferrous Sulfate)) 50 Mg Tab, 50 MG PO BID for 30 Days, #60 TAB Prov:VITOR SCHULTZ OIL FIELD EQUIPMENT MECHANIC SUPERVISOR 01/13/25 Metoprolol Tartrate (Metoprolol Tartrate) 50 Mg Tab, 50 MG PO BID for 30 Days, #60 TAB Prov:VITOR SCHULTZ OIL FIELD EQUIPMENT MECHANIC SUPERVISOR 01/13/25 Clonidine Hydrochloride (Clonidine Hcl) 0.2 Mg Tab, 1 TAB PO TID, #90 TAB 5 Refills Prov:VITOR SCHULTZ OIL FIELD EQUIPMENT MECHANIC SUPERVISOR 01/13/25 Sucralfate (CARAFATE) 1 Gm Tab, 1 GM OR QIDACHS for 30 Days, #120 TAB Prov:VITOR SCHULTZ OIL FIELD EQUIPMENT MECHANIC SUPERVISOR 01/13/25 Pantoprazole Sodium Sesquihydr (Protonix) 40 Mg Tab, 40 MG PO BID for 30 Days, #60 TAB Prov:VITOR SCHULTZ OIL FIELD EQUIPMENT MECHANIC SUPERVISOR 01/13/25 Atorvastatin Calcium (ATORVASTATIN CALCIUM) 80 Mg Tab, 1 TAB PO DAILY, #30 TAB 5 Refills Prov:VITOR SCHULTZ OIL FIELD EQUIPMENT MECHANIC SUPERVISOR 09/08/24 Reported Medications Dapagliflozin Propanediol (Farxiga) 10 Mg Tab, 1 TAB PO DAILY 09/03/24 Benazepril Hcl (Benazepril Hcl) 40 Mg Tab, 1 TAB PO DAILY 09/30/22 Amlodipine Besylate (Amlodipine Besylate) 10 Mg Tab, 1 TAB PO DAILY 09/30/22 Current Medications Current Medications Medications (Trade) Dose Ordered Sig/Abilio Route PRN Reason Start Time Stop Time Status Last Admin Clopidogrel Bisulfate (Plavix) 75 mg DAILY PO 01/26/25 10:00 Amlodipine Besylate (Norvasc Tablet) 10 mg DAILY PO 01/26/25 10:00 Hold Aspirin 81 mg DAILY PO 01/26/25 10:00 Benazepril HCl (Lotensin Tablet) 40 mg DAILY PO 01/26/25 10:00 Sodium Chloride 1,000 ml @ 50 mls/hr Q20H IV 01/26/25 12:00 01/26/25 14:32 DC 01/26/25 14:23 Diagnostic Test (Pha) (Accu-Chek Comfort Curve T) 1 strip ACHS 01/26/25 17:00 01/26/25 22:17 Insulin Human Regular (InsuLIN R) HS SC 01/26/25 22:00 01/26/25 22:16 Insulin Human Regular (InsuLIN R) AC SC 01/26/25 17:00 01/26/25 17:38 Dextrose 50 ml UD PRN IV Blood Sugar LESS THAN 60 01/26/25 12:00 Sodium Chloride 1,000 ml @ 100 mls/hr Q10H IV 01/26/25 14:30 01/26/25 17:42 Nifedipine (Procardia Xl (Time-Release)) 60 mg DAILY PO 01/27/25 10:00 Sertraline HCl (Zoloft) 50 mg DAILY PO 01/26/25 16:15 Albuterol (Ventolin Medneb) 2.5 mg Q4HPRN PRN NEB SHORTNESS OF BREATH 01/26/25 16:15 Ipratropium [place] (Atrovent Medneb) 0.5 mg Q4HPRN PRN NEB SHORTNESS OF BREATH 01/26/25 16:15 Guaifenesin/ Dextromethorphan (Robitussin-Dm Liquid) 10 ml Q4HP PRN PO FOR COUGH 01/26/25 16:15 Review of Systems As above, the other systems are negative Vital Signs Vital Signs Date Time Temp Pulse Resp B/P (MAP) Pulse Ox O2 Delivery O2 Flow Rate FiO2 01/26/25 21:38 98 168/100 01/26/25 21:00 98.6 17 95 98.6 01/26/25 18:48 Room Air 0.0 01/26/25 18:48 21 Physical Exam GENERAL EXAM: General: the patient is well developed and nourished. No acute distress. HEENT: Normocephalic, neck is supple, no carotid bruits. No mass RESPIRATORY: Normal respiratory effort with symmetrical lung expansion. Lungs clear to auscultation. CARDIOVASCULAR: Regular rate and rhythm with no murmurs. S1, S2. ABDOMEN: Soft, nontender, normal bowel sound NEUROLOGICAL: MENTAL STATUS: Awake and alert. Oriented to person, place, time and general circumstances. Able to give personal history SPEECH, LANGUAGE, HIGHER CORTICAL FUNCTION: no aphasia or dysathria. CRANIAL NERVES: #2: Intact visual godfrey to confrontation. The optic discs were sharp #3,4,6: Pupils are equal, round and reactive. EOMs full and conjugate. No nystagmus. #5: Facial sensation intact in all three divisions bilaterally. Mandibular strength intact. #7: Facial muscles symmetrical and strength intact. #8: Hearing grossly normal to voice. #9,10: Uvula and soft palate rise in the midline. Swallow and voice are normal. #11: Trapezius and sternomastoid strength intact bilaterally. #12: Tongue midline. No fasciculations or atrophy. SENSATION: Sensation to touch and pinprick is normal. MOTOR: Normal tone in the upper and lower extremity. Normal muscle bulk. No fasciculations. No abnormal movements or posturing. Muscle strength of the major groups in the extremities is 5/5, questionably weaker on the left side REFLEXES: Deep tendon reflexes are symmetrical. No pathological reflexes. CEREBELLAR/COORDINATION: Finger to nose is normal bilaterally. GAIT/STATION: deferred Labs/Diagnostic Data Labs Test 01/26/25 21:21 01/26/25 15:55 01/26/25 15:00 01/26/25 06:20 Range/Units POC Glucose 156 H 70-106 mg/dl Vitamin D 25-Hydroxy 11.3 L 30.0-100 ng/mL Urine Color Light-yellow Yellow Urine Clarity Clear Clear Urine pH 6.0 5.0-9.0 Urine Specific [place] 1.035 1.001-1.035 Urine Protein 2+ H Negative Urine Ketones 1+ H Negative Urine Blood 1+ H Negative /uL Urine Nitrite Negative Negative Urine Bilirubin Negative Negative Urine Urobilinogen Normal Negative mg/dL Urine Leukocyte Esterase Negative Negative /uL Urine RBC 15 0 - 3 /hpf Urine Microscopic WBC 3 0-3 /HPF Urine Squamous Epithelial Cells None seen <5 /hpf Urine Bacteria None seen None Seen /hpf Urine Creatinine 101.64 30.0-125.0 mg/dL Urine Protein/Creatinine Ratio 2.45 Urine Sodium 31 L 40-220 mmol/L Urine Glucose 4+ H Normal mg/dL Urine Total Protein 249.3 H 1-14 mg/dL White Blood Count 11.9 H 4.4-10.8 10^3/uL Red Blood Count 4.49 L 4.5-5.90 10^6/uL Hemoglobin 13.5 13.5-17.5 g/dL Hematocrit 40.9 L 41.0-53.0 % Mean Corpuscular Volume 91.1 80.0-100.0 fL Mean Corpuscular Hemoglobin 30.0 28.0-32.0 pg Mean Corpuscular Hemoglobin Concent 32.9 32.0-36.0 g/dL Red Cell Distribution Width 15.6 H 11.8-14.3 % Platelet Count 208 140-450 10^3/uL Mean Platelet Volume 8.9 6.9-10.8 fL Neutrophils (%) (Auto) 80.5 H 37.0-80.0 % Lymphocytes (%) (Auto) 11.5 10.0-50.0 % Monocytes (%) (Auto) 7.8 0.0-12.0 % Eosinophils (%) (Auto) 0.1 0.0-7.0 % Basophils (%) (Auto) 0.1 0.0-2.0 % Neutrophils # (Auto) 9.6 H 1.6-8.6 10 ^3/uL Lymphocytes # (Auto) 1.4 0.4-5.4 10 ^3/uL Monocytes # (Auto) 0.9 0-1.3 10 ^3/uL Eosinophils # (Auto) 0 0-0.8 10 ^3/uL Basophils # (Auto) 0 0-0.2 10 ^3/uL Nucleated Red Blood Cells 0.1 % Sodium Level 144 # 136-145 mmol/L Potassium Level 4.3 3.5-5.1 mmol/L Chloride Level 108 H 98-107 mmol/L Carbon Dioxide Level 24 20-31 mmol/L Anion Gap 12 5-15 Blood Urea Nitrogen 17 9-23 mg/dL Creatinine 2.24 H 0.700-1.30 mg/dL Glomerular Filtration Rate Calc 31 >90 mL/min BUN/Creatinine Ratio 7.6 L 10.0-20.0 Serum Glucose 254 #H 74-106 mg/dL Calcium Level 10.2 8.7-10.4 mg/dL Phosphorus Level 4.8 2.4-5.1 mg/dL Magnesium Level 2.6 1.6-2.6 mg/dL Total Bilirubin 0.6 0.2-1.0 mg/dL Aspartate Amino Transferase (AST) 16 13-40 U/L Alanine Aminotransferase (ALT) 16 7-40 U/L Alkaline Phosphatase 76 46-116 U/L Total Protein 7.0 5.7-8.2 g/dL Albumin 4.2 3.2-4.8 g/dL Parathyroid Hormone (Intact) 121.6 H 18.4-80.1 pg/mL Test 01/25/25 09:48 01/25/25 06:33 Range/Units Troponin I High Sensitivity 30 </=54 ng/L Prothrombin Time 10.9 9.3-11.8 sec Prothrombin Time INR 1.03 0.9-1.15 Activated Partial Thromboplast Time 21.4 L 24.5-34.5 SEC Microbiology Date/Time Source Procedure Growth Status 01/25/25 15:50 Nose MRSA Screen - Final Complete Assessment A keeps nausea, vomiting, severely elevated blood pressure, general weakness Hypertension emergency Posterior reversible encephalopathy Clonic multiple strokes Left ICA high-grade stenosis History of GI bleeding with syncope Chills, ? Sepsis Plan/Recommendation Monitoring Supportive treatment Telemetry Blood culture Discontinue Plavix Aspirin 81 mg daily Lipitor 80 mg daily Protonix, 40 mg daily DVT prophylaxis/SCD Physical therapy, up to chair after blood pressure is stabilize Further address left high-grade ICA stenosis as outpatient Prognosis: Poor This medical document was created using an electronic medical record system with [employer] dictation system. Although this document has been carefully reviewed, there may still be some phonetic and typographical errors. These areas are purely typographical due to imperfections of the software programs, and do not reflect any compromise in the patient's medical care. Plan discussed with: Patient, Other GRACIE UMAÑA MD Jan 26, 2025 23:11
[2025-01-26] MEDS ORDERED: LORazepam 2MG/ML-1ML VIAL IV PRN (23:45)
[2025-01-27] VITALS (9 sets, daily range): BP systolic 159–190; BP diastolic 90–116; PULSE 86–105; RESP 16–18; TEMP 97.8–99.1; O2SAT 94–99
--- NOTE | 2025-01-27 06:57 | DVHPN2 ---
Progress Note - Dictate Date Seen: Jan 27, 2025 Medical Necessity Reason Pt with a Central, PICC or Fol: No vital signs Vital Sign Date Time Temp Pulse Resp B/P (MAP) Pulse Ox O2 Delivery O2 Flow Rate FiO2 01/27/25 06:38 95 Room Air* 0 21 01/27/25 05:00 98.0 91 16 186/107 (133) 98.0 Total Intake and Output 01/26/25 01/26/25 01/27/25 15:00 23:00 07:00 Intake Total 0 ml 100 ml Output Total 300 ml 325 ml Balance -300 ml -225 ml medications Current Medications Medications Dose Ordered Sig/Abilio Route Start Time Stop Time Status Last Admin Dose Admin Nitroglycerin 0.4 mg Q5MINP PRN SL 01/25/25 11:15 Morphine Sulfate 2 mg Q30M PRN IV 01/25/25 11:15 Pantoprazole Sodium 40 mg BID PO 01/25/25 22:00 Sucralfate 1 gm QIDACHS PO 01/25/25 11:30 Amlodipine Besylate 10 mg DAILY PO 01/26/25 10:00 Hold Aspirin 81 mg DAILY PO 01/26/25 10:00 Benazepril HCl 40 mg DAILY PO 01/26/25 10:00 Clonidine HCl 0.2 mg BID PO 01/25/25 22:00 Ferrous Sulfate 325 mg TIDWM PO 01/25/25 18:00 Piperacillin Sod/ Tazobactam Sod 100 ml @ 100 mls/hr Q8H IV 01/25/25 20:00 01/27/25 04:01 100 MLS/HR Labetalol HCl 20 mg Q4HPRN PRN IV 01/25/25 16:30 01/27/25 04:58 20 MG Diagnostic Test (Pha) 1 strip ACHS 01/26/25 17:00 01/26/25 22:17 1 STRIP Insulin Human Regular HS SC 01/26/25 22:00 01/26/25 22:16 2 UNITS Insulin Human Regular AC SC 01/26/25 17:00 01/26/25 17:38 9 UNITS Dextrose 50 ml UD PRN IV 01/26/25 12:00 Sodium Chloride 1,000 ml @ 100 mls/hr Q10H IV 01/26/25 14:30 01/26/25 17:42 100 MLS/HR Nifedipine 60 mg DAILY PO 01/27/25 10:00 Sertraline HCl 50 mg DAILY PO 01/26/25 16:15 Albuterol 2.5 mg Q4HPRN PRN NEB 01/26/25 16:15 Ipratropium [place] 0.5 mg Q4HPRN PRN NEB 01/26/25 16:15 Guaifenesin/ Dextromethorphan 10 ml Q4HP PRN PO 01/26/25 16:15 Atorvastatin Calcium 80 mg HS PO 01/27/25 22:00 Lorazepam 1 mg ONCE PRN IV 01/26/25 23:45 laboratory and microbiology Laboratory Tests 01/26/25 06:20 Test 01/26/25 06:20 Range/Units Serum Glucose 254 #H 74-106 mg/dL Assessment/Plan Patient is a 69-year-old gentleman who presented with nausea/vomiting. Was admitted with high blood pressure/hypertensive emergency. It is of note that the patient was recently in the hospital and was found to have CVA. At that point the patient was transferred to high level of care for possible intervention for intracranial vascular stenosis. Cardiology was involved for cardiac aspects of care. There is no report of recent chest pain/loss of consciousness. Morbidly obese. Not in acute distress. Not using accessory muscles of breathing. No JVD. Speaks slowly. Mucosa is pink and wet. No goiter. No carotid bruit. Lungs are clear to auscultation. Cardiac: Regular, no thrill/gallop. Abdomen is soft. There is no gross mass. Bowel sound is positive. Dorsalis pedis is 2+ bilateral Past medical history includes hypertension, diabetes mellitus, morbid obesity, history of CVA, repeated (last one: relatively recent), intracranial vascular stenosis, CKD, old history of GI bleeding anemia, GERD, hyperlipidemia, pancreatitis, hiatal hernia, bladder diverticuli and old history of hepatitis-C. Does have history of smoking. Denies alcohol and drug abuse. Family history is positive for hypertension/CVA and heart murmur Echocardiogram of August 03, 2023 had reported mild concentric left ventricular hypertrophy, aortic sclerosis, ejection fraction of 65-70% and no vegetation Echocardiogram of August 2024 revealed ejection fraction of 60-65% Echocardiogram of December 10, 2024 reported concentric left ventricular hypertrophy, LVEF of 60-65%, trace MR CLAUDY of December 12, 2024 reported ejection fraction of 65% and no cardiac source for emboli WBC: 13.5 - 11.9 Creatinine: 1.86 - 2.24 Potassium: 4.3 - 4.3 Troponin (high sensitive): Chest x-ray revealed: IMPRESSION: No acute intrathoracic abnormality CT of the head revealed: IMPRESSION: No acute intracranial abnormality. Abdomen/pelvic CT scan revealed: IMPRESSION: No acute intraabdominal abnormality. Stomach containing hiatal hernia. Mild colonic diverticulosis. Normal appendix. EKG reveals NSR, non-specific ST T changes Tele reveals sinus rhythm/sinus tachycardia Patient is a 69-year-old gentleman who presented with nausea/vomiting. He is poor historian. Does have recent history of pancreatitis which could have contributed to the clinical picture? Does have recent history of CVA and is having poor functional capacity. Hypertensive emergency could have contributed to the clinical picture. There was question about swallowing capacity. Acute coronary syndrome is not considered at this point. Hypertensive emergency Nausea/vomiting Encephalopathy, metabolic/toxic/hypertensive CVA, recent Morbid obesity Diabetes mellitus Hypertension Hiatal hernia GI bleeding, history of CKD Bladder Diverticulum Cardiac suggestion for management: Manage on telemetry Follow-up electrolytes and kidney function tests and correct abnormalities Control hypertension Repeat labs Neurology following Continue aspirin/Plavix Further evaluation and management depends on the above and clinical course A total of 55 minutes was spent reviewing the patient record, examining the patient, making a diagnostic and therapeutic plan, discussing this plan with medical personnel, following up on diagnostic studies and following the patient for clinical stability excluding any and all procedures. At least 50% of this time was spent in direct, [id number] contact. Thank you for allowing me to participate in this patient's care. Further recommendations will depend on patient's clinical course. Please do not hesitate to contact me if you have any questions or concerns. This medical document was created using electronic medical record system with [employer] computerized dictation system. Although this document has been carefully reviewed, there may still be some phonetic and typographical errors. These areas are purely typographical due to the imperfection of the software programs, and do not reflect any compromise in the patient's medical care. Plan discussed with: Other (nurse) NEVAEH FALCON MD Jan 27, 2025 06:57
[2025-01-27] MEDS: NIFEdipine ER 30 MG TAB PO SCH (10:00)
[2025-01-27] MEDS: hydrALAZINE HCL 20 MG/ML VL IV ONE (12:16)
[2025-01-27 12:36] LABS: Alanine Aminotransferase 17 U/L (7-40); Albumin 4.3 g/dL (3.2-4.8); Alkaline Phosphatase 74 U/L (46-116); Anion Gap 12 (5-15); Aspartate Aminotransferase 14 U/L (13-40); BUN/Creatinine Ratio 9.6 (10.0-20.0); Blood Urea Nitrogen 21 mg/dL (9-23); Carbon Dioxide 25 mmol/L (20-31); Total Protein 7.2 g/dL (5.7-8.2)
[2025-01-27 12:37] LABS: Bilirubin, Total 0.7 mg/dL (0.2-1.0)
[2025-01-27 12:39] LABS: Chloride 113 mmol/L (98-107); Glucose 166 mg/dL (74-106); Sodium 150 mmol/L (136-145)
--- NOTE | 2025-01-27 13:14 | DVH ---
EXAM: MRI BRAIN HEAD WO CONTRAST CLINICAL HISTORY: cva, pres COMPARISON: MRI BRAIN HEAD WO CONTRAST on DOS: 12/13/24, MRI BRAIN HEAD WO CONTRAST on DOS: 12/09/24, M RI BRAIN HEAD WO CONTRAST on DOS: 09/04/24 CT brain 01/25/2025 CONTRAST: TECHNIQUE: Multiplanar, multisequence magnetic resonance imaging of the brain was performed without intravenous contrast. FINDINGS: There is focus of diffusion restriction inferior to the left basal ganglia and over the right prasad radiata. Moderate diffuse brain atrophy. Extensive white matter changes, out of proportion with the patient's age ; unchanged from prior imaging. Left parietal lobe chronic infarct. Right pontine chronic lacunar infarct. No hemorrhages, masses, mass effect, midline shift, herniation or cytotoxic edema following large vas cular territory. No intra-axial or extra-axial fluid collections. No evidence of hydrocephalus. The basal cisterns are patent. The vascular flow voids are maintained. The pituitary gland, sella and parasellar regions unremarkable. The cerebellar tonsils are normal po sition. The cerebellum is unremarkable. The orbits and globes unremarkable. The paranasal sinuses mastoids are clear. There are No worrisome calvarial lesions. IMPRESSION: Focus of acute infarct over the right prasad radiata and inferior to the left basal ganglia.
--- NOTE | 2025-01-27 14:08 | DVHPN2 ---
Progress Note Date Seen: Jan 27, 2025 Resident Creating Document: REYMUNDO JIMENEZ RESIDENT Medical Necessity Reason Pt with a Central, PICC or Fol: No Subjective Review of Systems 61-year-old male patient with a history of ischemic stroke 2 weeks ago, type 2 diabetes, hypertension, chronic kidney disease stage IIIB who presented to the emergency department with a chief complaint of nausea and vomiting and hematemesis. In the ER patient's blood pressure was found to be elevated 183/109 raising concern for hypertensive emergency. MRI of the brain showed acute/subacute ischemic changes including focus of restricted diffusion in the right prasad radiata and inferior to the left basal ganglia. On admission patient was given piperacillin tazobactam empirically and nephrology was consulted for worsening renal function and evaluation of CKD progression. We consider daily monitoring a renal panel, sodium calcium phosphate and magnesium , volume status and blood pressure response. Adjust antihypertensive medication based on renal function and hemodynamics and reassess for signs of worsening acute kidney injury. Patient reports: No new complaints Review of Systems: HEENT:Normal, CVS:Normal, RESPIRATORY:Normal, GI:Normal, :Normal, MSK:Normal, NEURO:Abnormal Other Systems: Patient seen and examined by myself today on rounds with the medicine resident, I agree with the assessment and plan as documented this note Plan of care discussed with the and the primary nurse at the bedside Objective vital signs Vital Sign Date Time Temp Pulse Resp B/P (MAP) Pulse Ox O2 Delivery O2 Flow Rate FiO2 01/27/25 13:12 99.1 94 16 182/109 (133) 94 99.1 01/27/25 08:00 Room Air* 0 21 Total Intake and Output 01/26/25 01/26/25 01/27/25 15:00 23:00 07:00 Intake Total 0 ml 100 ml Output Total 300 ml 325 ml Balance -300 ml -225 ml medications Current Medications Medications Dose Ordered Sig/Abilio Route Start Time Stop Time Status Last Admin Dose Admin Nitroglycerin 0.4 mg Q5MINP PRN SL 01/25/25 11:15 Morphine Sulfate 2 mg Q30M PRN IV 01/25/25 11:15 Pantoprazole Sodium 40 mg BID PO 01/25/25 22:00 Sucralfate 1 gm QIDACHS PO 01/25/25 11:30 Amlodipine Besylate 10 mg DAILY PO 01/26/25 10:00 Hold Aspirin 81 mg DAILY PO 01/26/25 10:00 Benazepril HCl 40 mg DAILY PO 01/26/25 10:00 Clonidine HCl 0.2 mg BID PO 01/25/25 22:00 Ferrous Sulfate 325 mg TIDWM PO 01/25/25 18:00 Piperacillin Sod/ Tazobactam Sod 100 ml @ 100 mls/hr Q8H IV 01/25/25 20:00 01/27/25 13:05 100 MLS/HR Labetalol HCl 20 mg Q4HPRN PRN IV 01/25/25 16:30 01/27/25 11:38 20 MG Diagnostic Test (Pha) 1 strip ACHS 01/26/25 17:00 01/27/25 11:14 1 STRIP Insulin Human Regular HS SC 01/26/25 22:00 01/26/25 22:16 2 UNITS Insulin Human Regular AC SC 01/26/25 17:00 01/27/25 07:22 3 UNITS Dextrose 50 ml UD PRN IV 01/26/25 12:00 Sodium Chloride 1,000 ml @ 100 mls/hr Q10H IV 01/26/25 14:30 01/26/25 17:42 100 MLS/HR Nifedipine 60 mg DAILY PO 01/27/25 10:00 Sertraline HCl 50 mg DAILY PO 01/26/25 16:15 Albuterol 2.5 mg Q4HPRN PRN NEB 01/26/25 16:15 Ipratropium [place] 0.5 mg Q4HPRN PRN NEB 01/26/25 16:15 Guaifenesin/ Dextromethorphan 10 ml Q4HP PRN PO 01/26/25 16:15 Atorvastatin Calcium 80 mg HS PO 01/27/25 22:00 Lorazepam 1 mg ONCE PRN IV 01/26/25 23:45 Morphine Sulfate 2 mg Q3HPRN PRN IV 01/27/25 09:15 Hydralazine HCl 10 mg Q6HP PRN IV 01/27/25 12:00 Examination Vitals: Blood pressure elevated, resistant hypertension. Volume status: Appears euvolemic, currently on fluid resuscitation. Lungs: No signs of pulmonary edema Cardiovascular: Regular rate and rhythm no murmurs. Extremities no edema noted Neuro : Patient alert and oriented x3, poor historian, not on baseline mental status. laboratory and microbiology Laboratory Tests 01/27/25 11:05 01/26/25 06:20 Test 01/27/25 11:05 Range/Units Serum Glucose 166 H 74-106 mg/dL Microbiology Date/Time Source Procedure Growth Status 01/25/25 15:50 Nose MRSA Screen - Final Complete Problem List/Assessment/Plan Problem List/Assessment/Plan Assessment: Acute infarct over the right prasad radiata and inferior to the left basal ganglia. Acute kidney injury on chronic kidney disease stage IIIB likely due to hypertensive emergency/volume depletion due to vomiting Resistant hypertension ?sympathetic overdrive post stroke? CKD related secondary hyperparathyroidism Hypernatremia Mild hyperchloremia Diabetic nephropathy History of stroke 2 weeks ago Plan: Monitor volume status and blood pressure control Adjust antihypertensive medication based on renal function Patient was started on hydralazine 10 mg p.o. Continue labetalol Urine protein/creatinine ratio Consider rehydrate the patient with 0.45% normal saline. Phosphorus normal: No binder needed Replace vitamin-D Continue clonidine cautiously and consider taper slowly if changing regimen. case discussed with goals of care discussed with the patient and for 24 minutes code status: full code Plan discussed with: Patient, Spouse My Orders My Orders Orders - REYMUNDO JIMENEZ Procedure Category Date Status Time Hydralazine Injection PHA 01/27/25 In Process (Apresoline Inject 12:00 REYMUNDO JIMENEZ Jan 27, 2025 14:08 LAVELLE CASTELLON MD Jan 27, 2025 15:10
--- NOTE | 2025-01-27 15:43 | DVHPN2 ---
Progress Note - Dictate Date Seen: Jan 27, 2025 Medical Necessity Reason Pt with a Central, PICC or Fol: No vital signs Vital Sign Date Time Temp Pulse Resp B/P (MAP) Pulse Ox O2 Delivery O2 Flow Rate FiO2 01/27/25 13:12 99.1 94 16 182/109 (133) 94 99.1 01/27/25 08:00 Room Air* 0 21 Total Intake and Output 01/26/25 01/26/25 01/27/25 15:00 23:00 07:00 Intake Total 0 ml 100 ml Output Total 300 ml 325 ml Balance -300 ml -225 ml medications Current Medications Medications Dose Ordered Sig/Abilio Route Start Time Stop Time Status Last Admin Dose Admin Nitroglycerin 0.4 mg Q5MINP PRN SL 01/25/25 11:15 Morphine Sulfate 2 mg Q30M PRN IV 01/25/25 11:15 Pantoprazole Sodium 40 mg BID PO 01/25/25 22:00 Sucralfate 1 gm QIDACHS PO 01/25/25 11:30 Amlodipine Besylate 10 mg DAILY PO 01/26/25 10:00 Hold Aspirin 81 mg DAILY PO 01/26/25 10:00 Benazepril HCl 40 mg DAILY PO 01/26/25 10:00 Clonidine HCl 0.2 mg BID PO 01/25/25 22:00 Ferrous Sulfate 325 mg TIDWM PO 01/25/25 18:00 Piperacillin Sod/ Tazobactam Sod 100 ml @ 100 mls/hr Q8H IV 01/25/25 20:00 01/27/25 13:05 100 MLS/HR Labetalol HCl 20 mg Q4HPRN PRN IV 01/25/25 16:30 01/27/25 11:38 20 MG Diagnostic Test (Pha) 1 strip ACHS 01/26/25 17:00 01/27/25 11:14 1 STRIP Insulin Human Regular HS SC 01/26/25 22:00 01/26/25 22:16 2 UNITS Insulin Human Regular AC SC 01/26/25 17:00 01/27/25 07:22 3 UNITS Dextrose 50 ml UD PRN IV 01/26/25 12:00 Sodium Chloride 1,000 ml @ 100 mls/hr Q10H IV 01/26/25 14:30 01/26/25 17:42 100 MLS/HR Nifedipine 60 mg DAILY PO 01/27/25 10:00 Sertraline HCl 50 mg DAILY PO 01/26/25 16:15 Albuterol 2.5 mg Q4HPRN PRN NEB 01/26/25 16:15 Ipratropium [place] 0.5 mg Q4HPRN PRN NEB 01/26/25 16:15 Guaifenesin/ Dextromethorphan 10 ml Q4HP PRN PO 01/26/25 16:15 Atorvastatin Calcium 80 mg HS PO 01/27/25 22:00 Lorazepam 1 mg ONCE PRN IV 01/26/25 23:45 Morphine Sulfate 2 mg Q3HPRN PRN IV 01/27/25 09:15 Hydralazine HCl 10 mg Q6HP PRN IV 01/27/25 12:00 objective General Appearance: alert, no distress HEENT: EOMI, PERRLA, normal external inspect of ears, no icterus, no nasal drainage Neck: no carotid bruit, no jugular venous distention (JVD), no lymphadenopathy Chest: normal thorax Respiratory: clear to auscultation, normal air movement Cardiovascular: regular rate and rhythm, no diastolic murmur, no jugular venous distention (JVD), no rub, no systolic murmur Abdominal: soft, no hepatomegaly, no mass, no splenomegaly, no tenderness Genitourinary: grossly normal external Musculoskeletal: no joint tenderness, no swelling Extremities: normal pulses, no calf tenderness, no clubbing, no cyanosis, no edema Skin: no bruising, no jaundice, no rash Neurological: alert, No focal deficit laboratory and microbiology Laboratory Tests 01/27/25 11:05 01/26/25 06:20 Test 01/27/25 11:05 Range/Units Serum Glucose 166 H 74-106 mg/dL Problem List - Left internal carotid stenosis Medication, monitoring -Chronic Gonzalez catheter Monitor -Hypertensive urgency Antihypertensives, monitoring -DM type II with hyperglycemia Insulin sliding scale, diet, monitoring -CKD IIIb Daily labs, medication, monitoring - History of CVA monitoring Assessment/Plan Subjective: Patient is awake and alert. Objective: Patient appears to be withdrawn. Patient was admitted for hypertensive urgency. I did discuss plan of care with the patient's yesterday. Plan: Continue home medications. Patient apparently has been having difficulty swallowing. Obtain a Gastrografin swallow study. Continue IV hydration at this time. Aspiration precautions. Dietary Evaluation Review Comments: 1) Advance diet to [id number] + renal specific 60gm protein + cardiac Msoft as medically feasible 2) Continue current plan of care Expected Outcomes/Goals: Pt will meet >75% estimated needs Fu 2-3 days Plan discussed with: Patient, Other VITOR SCHULTZ [employer] COORDINATOR Jan 27, 2025 15:43
[2025-01-27] MEDS: hydrALAZINE HCL 20 MG/ML VL IV PRN (17:30)
--- NOTE | 2025-01-27 20:51 | DVHPN2 ---
Progress Note - Dictate Date Seen: Jan 27, 2025 Medical Necessity Reason Pt with a Central, PICC or Fol: No Subjective No new complaints Tolerating a cardiac diet Patient has an underlying large complex hiatal hernia that causes his upper GI symptoms vital signs Vital Sign Date Time Temp Pulse Resp B/P (MAP) Pulse Ox O2 Delivery O2 Flow Rate FiO2 01/27/25 17:30 190/102 01/27/25 16:57 98.5 86 18 96 98.5 01/27/25 08:00 Room Air* 0 21 Total Intake and Output 01/26/25 01/26/25 01/27/25 15:00 23:00 07:00 Intake Total 0 ml 100 ml Output Total 300 ml 325 ml Balance -300 ml -225 ml medications Current Medications Medications Dose Ordered Sig/Abilio Route Start Time Stop Time Status Last Admin Dose Admin Nitroglycerin 0.4 mg Q5MINP PRN SL 01/25/25 11:15 Morphine Sulfate 2 mg Q30M PRN IV 01/25/25 11:15 Pantoprazole Sodium 40 mg BID PO 01/25/25 22:00 Sucralfate 1 gm QIDACHS PO 01/25/25 11:30 Amlodipine Besylate 10 mg DAILY PO 01/26/25 10:00 Hold Aspirin 81 mg DAILY PO 01/26/25 10:00 Benazepril HCl 40 mg DAILY PO 01/26/25 10:00 Clonidine HCl 0.2 mg BID PO 01/25/25 22:00 Ferrous Sulfate 325 mg TIDWM PO 01/25/25 18:00 Piperacillin Sod/ Tazobactam Sod 100 ml @ 100 mls/hr Q8H IV 01/25/25 20:00 01/27/25 20:22 100 MLS/HR Labetalol HCl 20 mg Q4HPRN PRN IV 01/25/25 16:30 01/27/25 15:43 20 MG Diagnostic Test (Pha) 1 strip ACHS 01/26/25 17:00 01/27/25 16:26 1 STRIP Insulin Human Regular HS SC 01/26/25 22:00 01/26/25 22:16 2 UNITS Insulin Human Regular AC SC 01/26/25 17:00 01/27/25 07:22 3 UNITS Dextrose 50 ml UD PRN IV 01/26/25 12:00 Sodium Chloride 1,000 ml @ 100 mls/hr Q10H IV 01/26/25 14:30 01/26/25 17:42 100 MLS/HR Nifedipine 60 mg DAILY PO 01/27/25 10:00 Sertraline HCl 50 mg DAILY PO 01/26/25 16:15 Albuterol 2.5 mg Q4HPRN PRN NEB 01/26/25 16:15 Ipratropium [place] 0.5 mg Q4HPRN PRN NEB 01/26/25 16:15 Guaifenesin/ Dextromethorphan 10 ml Q4HP PRN PO 01/26/25 16:15 Atorvastatin Calcium 80 mg HS PO 01/27/25 22:00 Lorazepam 1 mg ONCE PRN IV 01/26/25 23:45 Morphine Sulfate 2 mg Q3HPRN PRN IV 01/27/25 09:15 Hydralazine HCl 10 mg Q6HP PRN IV 01/27/25 12:00 01/27/25 17:30 10 MG objective General Appearance: alert, no distress HEENT: EOMI, PERRLA, normal external inspect of ears, no icterus, no nasal drainage Neck: no carotid bruit, no jugular venous distention (JVD), no lymphadenopathy Chest: normal thorax Respiratory: clear to auscultation, normal air movement Cardiovascular: regular rate and rhythm, no diastolic murmur, no jugular venous distention (JVD), no rub, no systolic murmur Abdominal: soft, no hepatomegaly, no mass, no splenomegaly, no tenderness Genitourinary: grossly normal external Musculoskeletal: no joint tenderness, no swelling Extremities: normal pulses, no calf tenderness, no clubbing, no cyanosis, no edema Skin: no bruising, no jaundice, no rash Neurological: alert, No focal deficit laboratory and microbiology Laboratory Tests 01/27/25 11:05 01/26/25 06:20 Test 01/27/25 11:05 Range/Units Serum Glucose 166 H 74-106 mg/dL Problems(with codes): (1) Hypertensive emergency (2) Hepatitis C antibody positive in blood (3) CVA (cerebral vascular accident) (4) N&V (nausea and vomiting) (5) Dysphagia (6) Hiatal hernia Prognosis Plan Pt is on Aspirin and Plavix ; high risk for occult GI bleeding due to large hiatal hernia EGD and Colon completed recently Nausea and vomiting likely related to hypertensive urgency and acute on chronic renal failure He also has underlying history of large hiatal hernia which could be contributing to his symptoms of dysphagia Patient would be benefitting from a pureed or soft diet Maintain on iron pills Avoid NSAIDS; Zofran as needed for nausea and vomiting Maintain on PPI and Carafate Dietary Evaluation Review Comments: 1) Advance diet to [id number] + renal specific 60gm protein + cardiac Msoft as medically feasible 2) Continue current plan of care Expected Outcomes/Goals: Pt will meet >75% estimated needs Fu 2-3 days Plan discussed with: Patient KAREL PRITCHARD MD Jan 27, 2025 20:51
[2025-01-27] MEDS: ATORVASTATIN 20 MG TAB PO SCH (21:25)
--- NOTE | 2025-01-27 22:59 | DVHPN2 ---
Progress Note - Dictate Date Seen: Jan 27, 2025 Medical Necessity Reason Pt with a Central, PICC or Fol: No Subjective Mr. Goldsmith is a 69 years old right-handed gentleman with a history of hypertension, diabetes, dyslipidemia, he came to the [facility] on 0 01/25/2025 with a chief complaint of hypertension, nausea, vomiting. I have seen and examined the patient, I have discussed with his nurse, he was awake, looks weak, oriented times 2-3 MR showed new strokes Telemetry shows no evidence of atrial fibrillation Urinalysis, 01/26/2025: WBC: 3, urine leukocyte esterase: Negative WBC/HB/PLT/MCV, 01/26/2025: 11.9/13.5/208/91.1 Na 01/27/25: 150 HGB A1c, 07/2023: 6.1, 12/09/2024: 7.6 BUN/CR, 09/03/2024: 22/1.81, 12/09/2024: 12/1.62, 02/25/2025: 17/2.24 GFR, 01/26/2025: 31 Liver function tests, 01/26/2025: Unremarkable TG/HDL/LDL/HDL, 12/09/2024: 172/277/203/46 Vitamin B12, 04/2024: 622 TSH, 04/2020 4:2.29 CLAUDY, 12/12/2024: No evidence cardiac emboli source Echocardiogram, 12/10/2024: LVEF was 60-65%. Carotid Doppler, 09/04/2025: No hemodynamically significant stenosis within the carotid arteries MRI head, 08/03/2023: No acute findings. Small vessel chronic ischemic changes MRI head, 09/04/2024: Few small foci of acute ischemia, suspect embolic infarcts. Clinical correlation and continued follow-up is recommended. Consider further evaluation with CTA or MRA of the head and neck MRI head, 12/09/2024: 1. Small foci of acute ischemia in the right thalamus and left parietal cortex. No intracranial hemorrhage. 2. Extensive chronic microvascular ischemic changes, advanced for patient's age. MRI head, 12/13/2024: 1. Acute infarcts in the right prasad radiata , left parietal subcortical region, posteromedial left temporal lobe. Given the bilaterality, correlate for thromboembolic, vasospastic etiology 2. Moderate to advanced chronic microvascular ischemic changes. 3. Mild global cerebral volume loss (the right basal ganglia acute stroke is enlarged, new strokes in the left parietal lobe) MRI head 01/27/2025: Focus of acute infarct over the right prasad radiata and inferior to the left basal ganglia MRA brain, neck, 12/09/2024: 1. High-grade stenosis in the left intracranial ICA. 2. Short-segment occlusion of distal M2 segment of the left MCA. 3. Short- segment moderate stenosis of the proximal A2 segment of the left GILMA. 4. Short- segment occlusion of A3 segment of the right GILMA. 5. Moderate stenosis of the proximal basilar artery. 6. Hypoplastic right vertebral artery short-segment foci of high-grade stenosis and occlusion of the V3 segment vital signs Vital Sign Date Time Temp Pulse Resp B/P (MAP) Pulse Ox O2 Delivery O2 Flow Rate FiO2 01/27/25 21:27 105 183/116 01/27/25 21:00 98.6 16 95 98.6 01/27/25 08:00 Room Air* 0 21 Total Intake and Output 01/26/25 01/26/25 01/27/25 15:00 23:00 07:00 Intake Total 0 ml 100 ml Output Total 300 ml 325 ml Balance -300 ml -225 ml medications Current Medications Medications Dose Ordered Sig/Abilio Route Start Time Stop Time Status Last Admin Dose Admin Nitroglycerin 0.4 mg Q5MINP PRN SL 01/25/25 11:15 Morphine Sulfate 2 mg Q30M PRN IV 01/25/25 11:15 Pantoprazole Sodium 40 mg BID PO 01/25/25 22:00 Sucralfate 1 gm QIDACHS PO 01/25/25 11:30 Amlodipine Besylate 10 mg DAILY PO 01/26/25 10:00 Hold Aspirin 81 mg DAILY PO 01/26/25 10:00 Benazepril HCl 40 mg DAILY PO 01/26/25 10:00 Clonidine HCl 0.2 mg BID PO 01/25/25 22:00 Ferrous Sulfate 325 mg TIDWM PO 01/25/25 18:00 Piperacillin Sod/ Tazobactam Sod 100 ml @ 100 mls/hr Q8H IV 01/25/25 20:00 01/27/25 20:22 100 MLS/HR Labetalol HCl 20 mg Q4HPRN PRN IV 01/25/25 16:30 01/27/25 21:27 20 MG Diagnostic Test (Pha) 1 strip ACHS 01/26/25 17:00 01/27/25 21:25 1 STRIP Insulin Human Regular HS SC 01/26/25 22:00 01/26/25 22:16 2 UNITS Insulin Human Regular AC SC 01/26/25 17:00 01/27/25 07:22 3 UNITS Dextrose 50 ml UD PRN IV 01/26/25 12:00 Sodium Chloride 1,000 ml @ 100 mls/hr Q10H IV 01/26/25 14:30 01/26/25 17:42 100 MLS/HR Nifedipine 60 mg DAILY PO 01/27/25 10:00 Sertraline HCl 50 mg DAILY PO 01/26/25 16:15 Albuterol 2.5 mg Q4HPRN PRN NEB 01/26/25 16:15 Ipratropium Anderson 0.5 mg Q4HPRN PRN NEB 01/26/25 16:15 Guaifenesin/ Dextromethorphan 10 ml Q4HP PRN PO 01/26/25 16:15 Atorvastatin Calcium 80 mg HS PO 01/27/25 22:00 Lorazepam 1 mg ONCE PRN IV 01/26/25 23:45 Morphine Sulfate 2 mg Q3HPRN PRN IV 01/27/25 09:15 Hydralazine HCl 10 mg Q6HP PRN IV 01/27/25 12:00 01/27/25 17:30 10 MG objective General: the patient is well developed and nourished. No acute distress. MENTAL STATUS: Awake and alert. Oriented to person, place, time and general circumstances. Able to give personal history SPEECH, LANGUAGE, HIGHER CORTICAL FUNCTION: no aphasia or dysathria. CRANIAL NERVES: Pupils are equal, round and reactive. EOMs full and conjugate. No nystagmus. Facial sensation intact in all three divisions bilaterally. Mandibular strength intact. Facial muscles symmetrical and strength intact. SENSATION: Sensation to touch and pinprick is normal. MOTOR: Normal tone in the upper and lower extremity. Normal muscle bulk. No fasciculations. No abnormal movements or posturing. Muscle strength of the major groups in the extremities is 5/5, questionably weaker on the left side REFLEXES: Deep tendon reflexes are symmetrical. No pathological reflexes. CEREBELLAR/COORDINATION: Finger to nose is normal bilaterally. GAIT/STATION: deferred laboratory and microbiology Laboratory Tests 01/27/25 11:05 01/26/25 06:20 Test 01/27/25 11:05 Range/Units Serum Glucose 166 H 74-106 mg/dL Problem List Acute nausea, vomiting, severely elevated blood pressure, general weakness Hypertension emergency Posterior reversible encephalopathy Multiple strokes in 08/2024, 11/2024 x2 times,01/27/25, with unknown embolic source Left ICA high-grade stenosis History of GI bleeding with syncope Assessment/Plan Monitoring Supportive treatment Telemetry Aspirin 81 mg daily Lipitor 80 mg daily Protonix, 40 mg daily DVT prophylaxis/SCD Physical therapy, up to chair after blood pressure is stabilize Transfer to higher level care Re: Acute embolic strokes in 08/2024, 11/2023 x 2 times, 01/2024 Further address left high-grade ICA stenosis as outpatient This medical document was created using an electronic medical record system with [employer] dictation system. Although this document has been carefully reviewed, there may still be some phonetic and typographical errors. These areas are purely typographical due to imperfections of the software programs, and do not reflect any compromise in the patient's medical care. Prognosis poor Dietary Evaluation Review Comments: 1) Advance diet to [id number] + renal specific 60gm protein + cardiac Msoft as medically feasible 2) Continue current plan of care Expected Outcomes/Goals: Pt will meet >75% estimated needs Fu 2-3 days Plan discussed with: Other Total Time (mins): 40 GRACIE UMAÑA MD Jan 27, 2025 22:59
[2025-01-28] VITALS (11 sets, daily range): BP systolic 128–184; BP diastolic 69–105; PULSE 86–108; RESP 16–18; TEMP 97.7–98.9; O2SAT 90–99
--- NOTE | 2025-01-28 06:35 | DVHPN2 ---
Progress Note - Dictate Date Seen: Jan 28, 2025 Medical Necessity Reason Pt with a Central, PICC or Fol: No vital signs Vital Sign Date Time Temp Pulse Resp B/P (MAP) Pulse Ox O2 Delivery O2 Flow Rate FiO2 01/28/25 06:16 184/105 01/28/25 05:00 97.7 101 16 97 97.7 01/28/25 01:45 Room Air 01/28/25 01:45 0 21 Total Intake and Output 01/27/25 01/27/25 01/28/25 15:00 23:00 07:00 Intake Total 100 ml 0 ml 0 ml Output Total 100 ml Balance 100 ml 0 ml -100 ml medications Current Medications Medications Dose Ordered Sig/Abilio Route Start Time Stop Time Status Last Admin Dose Admin Nitroglycerin 0.4 mg Q5MINP PRN SL 01/25/25 11:15 Morphine Sulfate 2 mg Q30M PRN IV 01/25/25 11:15 Pantoprazole Sodium 40 mg BID PO 01/25/25 22:00 Sucralfate 1 gm QIDACHS PO 01/25/25 11:30 Amlodipine Besylate 10 mg DAILY PO 01/26/25 10:00 Hold Aspirin 81 mg DAILY PO 01/26/25 10:00 Benazepril HCl 40 mg DAILY PO 01/26/25 10:00 Clonidine HCl 0.2 mg BID PO 01/25/25 22:00 Ferrous Sulfate 325 mg TIDWM PO 01/25/25 18:00 Piperacillin Sod/ Tazobactam Sod 100 ml @ 100 mls/hr Q8H IV 01/25/25 20:00 01/28/25 03:52 100 MLS/HR Labetalol HCl 20 mg Q4HPRN PRN IV 01/25/25 16:30 01/28/25 02:19 20 MG Diagnostic Test (Pha) 1 strip ACHS 01/26/25 17:00 01/28/25 06:17 1 STRIP Insulin Human Regular HS SC 01/26/25 22:00 01/26/25 22:16 2 UNITS Insulin Human Regular AC SC 01/26/25 17:00 01/28/25 06:29 6 UNITS Dextrose 50 ml UD PRN IV 01/26/25 12:00 Sodium Chloride 1,000 ml @ 100 mls/hr Q10H IV 01/26/25 14:30 01/26/25 17:42 100 MLS/HR Nifedipine 60 mg DAILY PO 01/27/25 10:00 Sertraline HCl 50 mg DAILY PO 01/26/25 16:15 Albuterol 2.5 mg Q4HPRN PRN NEB 01/26/25 16:15 Ipratropium Hassell 0.5 mg Q4HPRN PRN NEB 01/26/25 16:15 Guaifenesin/ Dextromethorphan 10 ml Q4HP PRN PO 01/26/25 16:15 Atorvastatin Calcium 80 mg HS PO 01/27/25 22:00 Lorazepam 1 mg ONCE PRN IV 01/26/25 23:45 Morphine Sulfate 2 mg Q3HPRN PRN IV 01/27/25 09:15 Hydralazine HCl 10 mg Q6HP PRN IV 01/27/25 12:00 01/28/25 06:16 10 MG laboratory and microbiology Laboratory Tests 01/27/25 11:05 01/26/25 06:20 Test 01/27/25 11:05 Range/Units Serum Glucose 166 H 74-106 mg/dL Assessment/Plan Patient is a 69-year-old gentleman who presented with nausea/vomiting. Was admitted with high blood pressure/hypertensive emergency. It is of note that the patient was recently in the hospital and was found to have CVA. At that point the patient was transferred to high level of care for possible intervention for intracranial vascular stenosis. Cardiology was involved for cardiac aspects of care. There is no report of recent chest pain/loss of consciousness. Morbidly obese. Not in acute distress. Not using accessory muscles of breathing. No JVD. Speaks slowly. Mucosa is pink and wet. No goiter. No carotid bruit. Lungs are clear to auscultation. Cardiac: Regular, no thrill/gallop. Abdomen is soft. There is no gross mass. Bowel sound is positive. Dorsalis pedis is 2+ bilateral Past medical history includes hypertension, diabetes mellitus, morbid obesity, history of CVA, repeated (last one: relatively recent), intracranial vascular stenosis, CKD, old history of GI bleeding anemia, GERD, hyperlipidemia, pancreatitis, hiatal hernia, bladder diverticuli and old history of hepatitis-C. Does have history of smoking. Denies alcohol and drug abuse. Family history is positive for hypertension/CVA and heart murmur Echocardiogram of August 03, 2023 had reported mild concentric left ventricular hypertrophy, aortic sclerosis, ejection fraction of 65-70% and no vegetation Echocardiogram of August 2024 revealed ejection fraction of 60-65% Echocardiogram of December 10, 2024 reported concentric left ventricular hypertrophy, LVEF of 60-65%, trace MR CLAUDY of December 12, 2024 reported ejection fraction of 65% and no cardiac source for emboli WBC: 13.5 - 11.9 Creatinine: 1.86 - 2.24 - 2.18 Potassium: 4.3 - 4.3 - 4.0 Troponin (high sensitive): Chest x-ray revealed: IMPRESSION: No acute intrathoracic abnormality CT of the head revealed: IMPRESSION: No acute intracranial abnormality. Abdomen/pelvic CT scan revealed: IMPRESSION: No acute intraabdominal abnormality. Stomach containing hiatal hernia. Mild colonic diverticulosis. Normal appendix. MRI of brain reported: IMPRESSION: Focus of acute infarct over the right prasad radiata and inferior to the left basal ganglia. EKG reveals NSR, non-specific ST T changes Tele reveals sinus rhythm/sinus tachycardia Patient is a 69-year-old gentleman who presented with nausea/vomiting. He is poor historian. Does have recent history of pancreatitis which could have contributed to the clinical picture? Does have recent history of CVA and is having poor functional capacity. Hypertensive emergency could have contributed to the clinical picture. There was question about swallowing capacity. Acute coronary syndrome is not considered at this point. Hypertensive emergency Nausea/vomiting Encephalopathy, metabolic/toxic/hypertensive CVA, recent Morbid obesity Diabetes mellitus Hypertension Hiatal hernia GI bleeding, history of CKD Bladder Diverticulum CVA, acute Cardiac suggestion for management: Manage on telemetry Follow-up electrolytes and kidney function tests and correct abnormalities Control hypertension, goal of BP as per Neurology Neurology following To transfer to [facility] as per Neurology Further evaluation and management depends on the above and clinical course A total of 55 minutes was spent reviewing the patient record, examining the patient, making a diagnostic and therapeutic plan, discussing this plan with medical personnel, following up on diagnostic studies and following the patient for clinical stability excluding any and all procedures. At least 50% of this time was spent in direct, [id number] contact. Thank you for allowing me to participate in this patient's care. Further recommendations will depend on patient's clinical course. Please do not hesitate to contact me if you have any questions or concerns. This medical document was created using electronic medical record system with [employer] computerized dictation system. Although this document has been carefully reviewed, there may still be some phonetic and typographical errors. These areas are purely typographical due to the imperfection of the software programs, and do not reflect any compromise in the patient's medical care. Dietary Evaluation Review Comments: 1) Advance diet to [id number] + renal specific 60gm protein + cardiac Msoft as medically feasible 2) Continue current plan of care Expected Outcomes/Goals: Pt will meet >75% estimated needs Fu 2-3 days Plan discussed with: Other (nurse) NEVAEH FALCON MD Jan 28, 2025 06:35
[2025-01-28] MEDS ORDERED: GASTROGRAFIN 120 ML SOL ONE (09:22)
--- NOTE | 2025-01-28 14:16 | DVHPN2 ---
Progress Note - Dictate Date Seen: Jan 28, 2025 Medical Necessity Reason Pt with a Central, PICC or Fol: No vital signs Vital Sign Date Time Temp Pulse Resp B/P (MAP) Pulse Ox O2 Delivery O2 Flow Rate FiO2 01/28/25 09:56 99 142/94 01/28/25 08:30 98.7 18 97 98.7 01/28/25 08:00 Room Air* 0 21 Total Intake and Output 01/27/25 01/27/25 01/28/25 15:00 23:00 07:00 Intake Total 100 ml 0 ml 200 ml Output Total 100 ml Balance 100 ml 0 ml 100 ml medications Current Medications Medications Dose Ordered Sig/Abilio Route Start Time Stop Time Status Last Admin Dose Admin Nitroglycerin 0.4 mg Q5MINP PRN SL 01/25/25 11:15 Morphine Sulfate 2 mg Q30M PRN IV 01/25/25 11:15 Pantoprazole Sodium 40 mg BID PO 01/25/25 22:00 Sucralfate 1 gm QIDACHS PO 01/25/25 11:30 Amlodipine Besylate 10 mg DAILY PO 01/26/25 10:00 Hold Aspirin 81 mg DAILY PO 01/26/25 10:00 Benazepril HCl 40 mg DAILY PO 01/26/25 10:00 Clonidine HCl 0.2 mg BID PO 01/25/25 22:00 Ferrous Sulfate 325 mg TIDWM PO 01/25/25 18:00 Piperacillin Sod/ Tazobactam Sod 100 ml @ 100 mls/hr Q8H IV 01/25/25 20:00 01/28/25 12:11 100 MLS/HR Labetalol HCl 20 mg Q4HPRN PRN IV 01/25/25 16:30 01/28/25 08:56 20 MG Diagnostic Test (Pha) 1 strip ACHS 01/26/25 17:00 01/28/25 11:30 1 STRIP Insulin Human Regular HS SC 01/26/25 22:00 01/26/25 22:16 2 UNITS Insulin Human Regular AC SC 01/26/25 17:00 01/28/25 12:15 6 UNITS Dextrose 50 ml UD PRN IV 01/26/25 12:00 Sodium Chloride 1,000 ml @ 100 mls/hr Q10H IV 01/26/25 14:30 01/26/25 17:42 100 MLS/HR Nifedipine 60 mg DAILY PO 01/27/25 10:00 Sertraline HCl 50 mg DAILY PO 01/26/25 16:15 Albuterol 2.5 mg Q4HPRN PRN NEB 01/26/25 16:15 Ipratropium Newcomb 0.5 mg Q4HPRN PRN NEB 01/26/25 16:15 Guaifenesin/ Dextromethorphan 10 ml Q4HP PRN PO 01/26/25 16:15 Atorvastatin Calcium 80 mg HS PO 01/27/25 22:00 Lorazepam 1 mg ONCE PRN IV 01/26/25 23:45 Morphine Sulfate 2 mg Q3HPRN PRN IV 01/27/25 09:15 Hydralazine HCl 10 mg Q6HP PRN IV 01/27/25 12:00 01/28/25 06:16 10 MG objective General Appearance: alert, no distress HEENT: EOMI, PERRLA, normal external inspect of ears, no icterus, no nasal drainage Neck: no carotid bruit, no jugular venous distention (JVD), no lymphadenopathy Chest: normal thorax Respiratory: clear to auscultation, normal air movement Cardiovascular: regular rate and rhythm, no diastolic murmur, no jugular venous distention (JVD), no rub, no systolic murmur Abdominal: soft, no hepatomegaly, no mass, no splenomegaly, no tenderness Genitourinary: grossly normal external Musculoskeletal: no joint tenderness, no swelling Extremities: normal pulses, no calf tenderness, no clubbing, no cyanosis, no edema Skin: no bruising, no jaundice, no rash Neurological: alert, No focal deficit laboratory and microbiology Laboratory Tests 01/27/25 11:05 01/26/25 06:20 Test 01/27/25 11:05 Range/Units Serum Glucose 166 H 74-106 mg/dL Problem List - Left internal carotid stenosis Medication, monitoring -Chronic Gonzalez catheter Monitor -Hypertensive urgency Antihypertensives, monitoring -DM type II with hyperglycemia Insulin sliding scale, diet, monitoring -CKD IIIb Daily labs, medication, monitoring - History of CVA monitoring Assessment/Plan Subjective: Patient is awake and alert. Objective: Patient is still complaining of difficulty swallowing. He spits up his pills. Patient was seen by GI. CT of the neck has been done up. Patient had a repeat MRI done which shows another cute infarct. Patient does have a left ICA high grade stenosis. He was previously transferred to a tertiary care center, however, the vascular surgeon said no carotid endarterectomy and they prescribed aspirin and Plavix. Patient had been readmitted since then for hematemesis. Hemoglobin had remained stable and patient was to continue aspirin and Plavix, along with Cepheid and Protonix. Plan: Repeat swallow eval. Gastrografin unable to be done due to risk of aspiration. Plan is speak with GI in regards to repeating upper endoscopy. Dysphagia may be related to recent CVA. Neurology recommendations appreciated. Dietary Evaluation Review Comments: 1) Advance diet to [id number] + renal specific 60gm protein + cardiac Msoft as medically feasible 2) Continue current plan of care Expected Outcomes/Goals: Pt will meet >75% estimated needs Fu 2-3 days Plan discussed with: Patient, Other VITOR SCHULTZ NP Jan 28, 2025 14:16
--- NOTE | 2025-01-28 14:35 | DVHPN2 ---
Progress Note Date Seen: Jan 28, 2025 Resident Creating Document: REYMUNDO JIMENEZ RESIDENT Medical Necessity Reason Pt with a Central, PICC or Fol: No Subjective Review of Systems 61-year-old male with recent neurologic event small infarct in the MRI, now with mildly elevated sodium possibly evolving , improving glucose, and improving renal function. Patient remains hemodynamically stable. Awaiting neurology re- evaluation. Patient seen and examined at bedside, also at bedside. No new complaints reported today. Patient appears clinically stable Patient is barely talking a couple of words but he understands and follow commands. Urine sodium and urine osmolality were ordered. Patient reports: No new complaints Changes from previous H/P or p: No Changes Other Systems: Patient seen and examined by myself today on rounds with the medicine resident, I agree with his assessment and plan Objective vital signs Vital Sign Date Time Temp Pulse Resp B/P (MAP) Pulse Ox O2 Delivery O2 Flow Rate FiO2 01/28/25 09:56 99 142/94 01/28/25 08:30 98.7 18 97 98.7 01/28/25 08:00 Room Air* 0 21 Total Intake and Output 01/27/25 01/27/25 01/28/25 15:00 23:00 07:00 Intake Total 100 ml 0 ml 200 ml Output Total 100 ml Balance 100 ml 0 ml 100 ml medications Current Medications Medications Dose Ordered Sig/Abilio Route Start Time Stop Time Status Last Admin Dose Admin Nitroglycerin 0.4 mg Q5MINP PRN SL 01/25/25 11:15 Morphine Sulfate 2 mg Q30M PRN IV 01/25/25 11:15 Pantoprazole Sodium 40 mg BID PO 01/25/25 22:00 Sucralfate 1 gm QIDACHS PO 01/25/25 11:30 Amlodipine Besylate 10 mg DAILY PO 01/26/25 10:00 Hold Aspirin 81 mg DAILY PO 01/26/25 10:00 Benazepril HCl 40 mg DAILY PO 01/26/25 10:00 Clonidine HCl 0.2 mg BID PO 01/25/25 22:00 Ferrous Sulfate 325 mg TIDWM PO 01/25/25 18:00 Piperacillin Sod/ Tazobactam Sod 100 ml @ 100 mls/hr Q8H IV 01/25/25 20:00 01/28/25 12:11 Labetalol HCl 20 mg Q4HPRN PRN IV 01/25/25 16:30 01/28/25 08:56 Diagnostic Test (Pha) 1 strip ACHS 01/26/25 17:00 01/28/25 11:30 Insulin Human Regular HS SC 01/26/25 22:00 01/26/25 22:16 Insulin Human Regular AC SC 01/26/25 17:00 01/28/25 12:15 Dextrose 50 ml UD PRN IV 01/26/25 12:00 Sodium Chloride 1,000 ml @ 100 mls/hr Q10H IV 01/26/25 14:30 01/26/25 17:42 Nifedipine 60 mg DAILY PO 01/27/25 10:00 Sertraline HCl 50 mg DAILY PO 01/26/25 16:15 Albuterol 2.5 mg Q4HPRN PRN NEB 01/26/25 16:15 Ipratropium Brohman 0.5 mg Q4HPRN PRN NEB 01/26/25 16:15 Guaifenesin/ Dextromethorphan 10 ml Q4HP PRN PO 01/26/25 16:15 Atorvastatin Calcium 80 mg HS PO 01/27/25 22:00 Lorazepam 1 mg ONCE PRN IV 01/26/25 23:45 Morphine Sulfate 2 mg Q3HPRN PRN IV 01/27/25 09:15 Hydralazine HCl 10 mg Q6HP PRN IV 01/27/25 12:00 01/28/25 06:16 Examination: GENERAL:Normal, HEENT:Normal, NECK:Normal, LUNGS:Normal, CVS:Normal, ABDOMEN:Normal, MSK:Normal, SKIN:Normal, NEURO:Abnormal, :Normal laboratory and microbiology Laboratory Tests 01/27/25 11:05 01/26/25 06:20 Test 01/27/25 11:05 Range/Units Serum Glucose 166 H 74-106 mg/dL Microbiology Date/Time Source Procedure Growth Status 01/27/25 01:20 Blood Blood Culture - Preliminary Resulted 01/25/25 15:50 Nose MRSA Screen - Final Complete Problem List/Assessment/Plan Problem List/Assessment/Plan Assessment: Acute infarct over the right prasad radiata and inferior to the left basal ganglia. Acute kidney injury on chronic kidney disease stage IIIB likely due to hypertensive emergency/volume depletion due to vomiting Resistant hypertension ?sympathetic overdrive post stroke? CKD related secondary hyperparathyroidism Hypernatremia, trending up. 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 Monitor volume status and blood pressure control Adjust antihypertensive medication based on renal function Patient was started on hydralazine 10 mg p.o. Neurology follow-up after MRI findings, pending. case discussed with goals of care discussed with the patient and for 24 minutes code status: full code Plan discussed with: Patient, Spouse My Orders My Orders Orders - REYMUNDO JIMENEZ Procedure Category Date Status Time Urine Sodium LAB 01/28/25 Logged 14:09 Osmolality Urine LAB 01/28/25 Logged 14:09 Dietary Evaluation Review Comments: 1) Advance diet to [id number] + renal specific 60gm protein + cardiac Msoft as medically feasible 2) Continue current plan of care Expected Outcomes/Goals: Pt will meet >75% estimated needs Fu 2-3 days REYMUNDO JIMENEZ Jan 28, 2025 14:35 LAVELLE CASTELLON MD Jan 28, 2025 17:09
--- NOTE | 2025-01-28 15:54 | DVH ---
Procedure: CT CHEST WITHOUT CONTRAST Reason for study/Clinical History: dysphasia Comparison Study: None available at time of dictation. Exam Date: 01/28/2025 02:44 PM TECHNIQUE: Multidetector CT of the chest was performed from the lung apices to the upper abdomen with out the use of intravenous contract. Axial, coronal and sagittal multiplanar reformats were performed . Radiation Dose Information: CT Dose: CTDI volume is 25 mGy. Dose-length product is 250 mGy*cm The dose indicators for CT are the volume Computed Tomography (CT) Dose Index (CTDIvol) and the Dose Length Product (DLP), and are measured in units of mGy and mGy-cm, respectively. These indicators are not patient dose, but values generated from the CT scanner acquisition factors. The report includes radiation exposure data for exposures received during this examination. FINDINGS: Lower neck: Normal thyroid. Lungs: No focal consolidation, pleural effusion or pneumothorax. Heart/Vascular Structures: Normal heart size. No pericardial effusion. Lymph Nodes: No adenopathy Pleura: No pleural effusion or significant pneumothorax. Musculoskeletal: No acute osseous abnormality. Soft tissues: Normal. Upper abdomen: Limited portions of the upper abdomen are unremarkable. IMPRESSION: No acute intrathoracic abnormality. Radiation optimization: All CT scans at this facility use at least one of these dose optimization demetrio hniques: automated exposure control mA and/or kV adjustment per patient size (includes targeted exam s where dose is matched to clinical indication) or iterative reconstruction.
--- NOTE | 2025-01-28 16:16 | DVH ---
EXAM: CT NECK WITHOUT CONTRAST INDICATION: states something in throat Exam Date: 01/28/2025 02:44 PM COMPARISON: None TECHNIQUE: CT of the neck without intravenous contrast. RADIATION DOSE: CTDIvol: 23 mGy, DLP: 1519 mGy*cm FINDINGS: There is no evidence of cervical mass lesion, pathologically enlarged lymph nodes or fluid collection . The fat planes of the neck appear intact. The airway and larynx are unremarkable. The parotid, submandibular and thyroid glands are unremarkable. The vascular structures of the neck appear patent. There is mild diffuse thickening of the esophagus. The visualized lung apices are clear. The limited visualized portions of the brain are unremarkable. The osseous structures are unremarkable. IMPRESSION: Limited examination secondary to lack of intravenous contrast administration. There is diffuse thickening of the esophagus. Clinical correlation advised. EGD could be considered to further evaluate if clinically indicated.
--- NOTE | 2025-01-28 23:37 | DVHPN2 ---
Progress Note - Dictate Date Seen: Jan 28, 2025 Medical Necessity Reason Pt with a Central, PICC or Fol: No Subjective No new complaints, sleeping comfortably Tolerating a cardiac diet Patient has an underlying large complex hiatal hernia that causes his upper GI symptoms vital signs Vital Sign Date Time Temp Pulse Resp B/P (MAP) Pulse Ox O2 Delivery O2 Flow Rate FiO2 01/28/25 22:03 175/88 01/28/25 21:00 98.3 86 18 96 98.3 01/28/25 20:00 Room Air* 0 21 Total Intake and Output 01/27/25 01/27/25 01/28/25 15:00 23:00 07:00 Intake Total 100 ml 0 ml 200 ml Output Total 100 ml Balance 100 ml 0 ml 100 ml medications Current Medications Medications Dose Ordered Sig/Abilio Route Start Time Stop Time Status Last Admin Dose Admin Nitroglycerin 0.4 mg Q5MINP PRN SL 01/25/25 11:15 Morphine Sulfate 2 mg Q30M PRN IV 01/25/25 11:15 Pantoprazole Sodium 40 mg BID PO 01/25/25 22:00 Sucralfate 1 gm QIDACHS PO 01/25/25 11:30 Amlodipine Besylate 10 mg DAILY PO 01/26/25 10:00 Hold Aspirin 81 mg DAILY PO 01/26/25 10:00 Benazepril HCl 40 mg DAILY PO 01/26/25 10:00 Clonidine HCl 0.2 mg BID PO 01/25/25 22:00 Ferrous Sulfate 325 mg TIDWM PO 01/25/25 18:00 Piperacillin Sod/ Tazobactam Sod 100 ml @ 100 mls/hr Q8H IV 01/25/25 20:00 01/28/25 20:17 100 MLS/HR Labetalol HCl 20 mg Q4HPRN PRN IV 01/25/25 16:30 01/28/25 16:29 20 MG Diagnostic Test (Pha) 1 strip ACHS 01/26/25 17:00 01/28/25 22:03 1 STRIP Insulin Human Regular HS SC 01/26/25 22:00 01/26/25 22:16 2 UNITS Insulin Human Regular AC SC 01/26/25 17:00 01/28/25 12:15 6 UNITS Dextrose 50 ml UD PRN IV 01/26/25 12:00 Sodium Chloride 1,000 ml @ 100 mls/hr Q10H IV 01/26/25 14:30 01/26/25 17:42 100 MLS/HR Nifedipine 60 mg DAILY PO 01/27/25 10:00 Sertraline HCl 50 mg DAILY PO 01/26/25 16:15 Albuterol 2.5 mg Q4HPRN PRN NEB 01/26/25 16:15 Ipratropium [place] 0.5 mg Q4HPRN PRN NEB 01/26/25 16:15 Guaifenesin/ Dextromethorphan 10 ml Q4HP PRN PO 01/26/25 16:15 Atorvastatin Calcium 80 mg HS PO 01/27/25 22:00 Lorazepam 1 mg ONCE PRN IV 01/26/25 23:45 Morphine Sulfate 2 mg Q3HPRN PRN IV 01/27/25 09:15 Hydralazine HCl 10 mg Q6HP PRN IV 01/27/25 12:00 01/28/25 22:03 10 MG objective General Appearance: alert, no distress HEENT: EOMI, PERRLA, normal external inspect of ears, no icterus, no nasal drainage Neck: no carotid bruit, no jugular venous distention (JVD), no lymphadenopathy Chest: normal thorax Respiratory: clear to auscultation, normal air movement Cardiovascular: regular rate and rhythm, no diastolic murmur, no jugular venous distention (JVD), no rub, no systolic murmur Abdominal: soft, no hepatomegaly, no mass, no splenomegaly, no tenderness Genitourinary: grossly normal external Musculoskeletal: no joint tenderness, no swelling Extremities: normal pulses, no calf tenderness, no clubbing, no cyanosis, no edema Skin: no bruising, no jaundice, no rash Neurological: alert, No focal deficit laboratory and microbiology Laboratory Tests 01/27/25 11:05 01/26/25 06:20 Test 01/27/25 11:05 Range/Units Serum Glucose 166 H 74-106 mg/dL Problems(with codes): (1) Hepatitis C antibody positive in blood (2) Hypertensive emergency (3) CVA (cerebral vascular accident) (4) N&V (nausea and vomiting) (5) Hiatal hernia (6) Generalized weakness (7) Dysphagia Prognosis Plan Pt is on Aspirin and Plavix ; high risk for occult GI bleeding due to large hiatal hernia EGD and Colon completed recently Nausea and vomiting likely related to hypertensive urgency and acute on chronic renal failure He also has underlying history of large hiatal hernia which could be contributing to his symptoms of dysphagia Patient would be benefitting from a pureed or soft diet Maintain on iron pills Avoid NSAIDS; Zofran as needed for nausea and vomiting Maintain on PPI and Carafate Dietary Evaluation Review Comments: 1) Advance diet to [id number] + renal specific 60gm protein + cardiac Msoft as medically feasible 2) Continue current plan of care Expected Outcomes/Goals: Pt will meet >75% estimated needs Fu 2-3 days Plan discussed with: Patient KAREL PRITCHARD MD Jan 28, 2025 23:37
--- NOTE | 2025-01-28 23:42 | DVHPN2 ---
Progress Note - Dictate Date Seen: Jan 28, 2025 Medical Necessity Reason Pt with a Central, PICC or Fol: No Subjective Mr. Goldsmith is a 69 years old right-handed gentleman with a history of hypertension, diabetes, dyslipidemia, he came to the [facility] on 0 01/25/2025 with a chief complaint of hypertension, nausea, vomiting. I have seen and examined the patient, I have discussed with his nurse, he was awake, looks weak, oriented times 2-3, he was dysphagia Per nurse observation, the patient does not want to do things The Case was discussed with social service Urinalysis, 01/26/2025: WBC: 3, urine leukocyte esterase: Negative WBC/HB/PLT/MCV, 01/26/2025: 11.9/13.5/208/91.1 Na 01/27/25: 150 HGB A1c, 07/2023: 6.1, 12/09/2024: 7.6 BUN/CR, 09/03/2024: 22/1.81, 12/09/2024: 12/1.62, 02/25/2025: 17/2.24 GFR, 01/26/2025: 31 Liver function tests, 01/26/2025: Unremarkable TG/HDL/LDL/HDL, 12/09/2024: 172/277/203/46 Vitamin B12, 04/2024: 622 TSH, 04/2020 4:2.29 CLAUDY, 12/12/2024: No evidence cardiac emboli source Echocardiogram, 12/10/2024: LVEF was 60-65%. Carotid Doppler, 09/04/2025: No hemodynamically significant stenosis within the carotid arteries MRI head, 08/03/2023: No acute findings. Small vessel chronic ischemic changes MRI head, 09/04/2024: Few small foci of acute ischemia, suspect embolic infarcts. Clinical correlation and continued follow-up is recommended. Consider further evaluation with CTA or MRA of the head and neck MRI head, 12/09/2024: 1. Small foci of acute ischemia in the right thalamus and left parietal cortex. No intracranial hemorrhage. 2. Extensive chronic microvascular ischemic changes, advanced for patient's age. MRI head, 12/13/2024: 1. Acute infarcts in the right prasad radiata , left parietal subcortical region, posteromedial left temporal lobe. Given the bilaterality, correlate for thromboembolic, vasospastic etiology 2. Moderate to advanced chronic microvascular ischemic changes. 3. Mild global cerebral volume loss (the right basal ganglia acute stroke is enlarged, new strokes in the left parietal lobe) MRI head 01/27/2025: Focus of acute infarct over the right prasad radiata and inferior to the left basal ganglia MRA brain, neck, 12/09/2024: 1. High-grade stenosis in the left intracranial ICA. 2. Short-segment occlusion of distal M2 segment of the left MCA. 3. Short- segment moderate stenosis of the proximal A2 segment of the left GILMA. 4. Short- segment occlusion of A3 segment of the right GILMA. 5. Moderate stenosis of the proximal basilar artery. 6. Hypoplastic right vertebral artery short-segment foci of high-grade stenosis and occlusion of the V3 segment vital signs Vital Sign Date Time Temp Pulse Resp B/P (MAP) Pulse Ox O2 Delivery O2 Flow Rate FiO2 01/28/25 22:03 175/88 01/28/25 21:00 98.3 86 18 96 98.3 01/28/25 20:00 Room Air* 0 21 Total Intake and Output 01/27/25 01/27/25 01/28/25 15:00 23:00 07:00 Intake Total 100 ml 0 ml 200 ml Output Total 100 ml Balance 100 ml 0 ml 100 ml medications Current Medications Medications Dose Ordered Sig/Abilio Route Start Time Stop Time Status Last Admin Dose Admin Nitroglycerin 0.4 mg Q5MINP PRN SL 01/25/25 11:15 Morphine Sulfate 2 mg Q30M PRN IV 01/25/25 11:15 Pantoprazole Sodium 40 mg BID PO 01/25/25 22:00 Sucralfate 1 gm QIDACHS PO 01/25/25 11:30 Amlodipine Besylate 10 mg DAILY PO 01/26/25 10:00 Hold Aspirin 81 mg DAILY PO 01/26/25 10:00 Benazepril HCl 40 mg DAILY PO 01/26/25 10:00 Clonidine HCl 0.2 mg BID PO 01/25/25 22:00 Ferrous Sulfate 325 mg TIDWM PO 01/25/25 18:00 Piperacillin Sod/ Tazobactam Sod 100 ml @ 100 mls/hr Q8H IV 01/25/25 20:00 01/28/25 20:17 100 MLS/HR Labetalol HCl 20 mg Q4HPRN PRN IV 01/25/25 16:30 01/28/25 16:29 20 MG Diagnostic Test (Pha) 1 strip ACHS 01/26/25 17:00 01/28/25 22:03 1 STRIP Insulin Human Regular HS SC 01/26/25 22:00 01/26/25 22:16 2 UNITS Insulin Human Regular AC SC 01/26/25 17:00 01/28/25 12:15 6 UNITS Dextrose 50 ml UD PRN IV 01/26/25 12:00 Sodium Chloride 1,000 ml @ 100 mls/hr Q10H IV 01/26/25 14:30 01/26/25 17:42 100 MLS/HR Nifedipine 60 mg DAILY PO 01/27/25 10:00 Sertraline HCl 50 mg DAILY PO 01/26/25 16:15 Albuterol 2.5 mg Q4HPRN PRN NEB 01/26/25 16:15 Ipratropium [place] 0.5 mg Q4HPRN PRN NEB 01/26/25 16:15 Guaifenesin/ Dextromethorphan 10 ml Q4HP PRN PO 01/26/25 16:15 Atorvastatin Calcium 80 mg HS PO 01/27/25 22:00 Lorazepam 1 mg ONCE PRN IV 01/26/25 23:45 Morphine Sulfate 2 mg Q3HPRN PRN IV 01/27/25 09:15 Hydralazine HCl 10 mg Q6HP PRN IV 01/27/25 12:00 01/28/25 22:03 10 MG objective General: the patient is well developed and nourished. No acute distress. MENTAL STATUS: Awake and alert. Oriented to person, place, time and general circumstances. Able to give personal history SPEECH, LANGUAGE, HIGHER CORTICAL FUNCTION: no aphasia or dysathria. CRANIAL NERVES: Pupils are equal, round and reactive. EOMs full and conjugate. No nystagmus. Facial sensation intact in all three divisions bilaterally. Mandibular strength intact. Facial muscles symmetrical and strength intact. SENSATION: Sensation to touch and pinprick is normal. MOTOR: Normal tone in the upper and lower extremity. Normal muscle bulk. No fasciculations. No abnormal movements or posturing. Muscle strength of the major groups in the extremities is 5/5, questionably weaker on the left side REFLEXES: Deep tendon reflexes are symmetrical. No pathological reflexes. CEREBELLAR/COORDINATION: Finger to nose is normal bilaterally. GAIT/STATION: deferred laboratory and microbiology Laboratory Tests 01/27/25 11:05 01/26/25 06:20 Test 01/27/25 11:05 Range/Units Serum Glucose 166 H 74-106 mg/dL Problem List Acute nausea, vomiting, severely elevated blood pressure, general weakness Hypertension emergency Posterior reversible encephalopathy Multiple strokes in 08/2024, 11/2024 x2 times,01/27/25, with unknown embolic source Left ICA high-grade stenosis History of GI bleeding with syncope Dysphagia, ? secondary to bilateral stroke ? Depression Assessment/Plan Monitoring Supportive treatment Telemetry Aspirin 81 mg daily Lipitor 80 mg daily Protonix, 40 mg daily DVT prophylaxis/SCD Physical therapy, up to chair after blood pressure is stabilize Consider tele psych consultation later Transfer to higher level care Re: Acute embolic strokes in 08/2024, 11/2023 x 2 times, 01/2024 Further address left high-grade ICA stenosis as outpatient This medical document was created using an electronic medical record system with [employer] dictation system. Although this document has been carefully reviewed, there may still be some phonetic and typographical errors. These areas are purely typographical due to imperfections of the software programs, and do not reflect any compromise in the patient's medical care. Prognosis poor Dietary Evaluation Review Comments: 1) Advance diet to [id number] + renal specific 60gm protein + cardiac Msoft as medically feasible 2) Continue current plan of care Expected Outcomes/Goals: Pt will meet >75% estimated needs Fu 2-3 days Plan discussed with: Other GRACIE UMAÑA MD Jan 28, 2025 23:42
[2025-01-29] VITALS (11 sets, daily range): BP systolic 143–198; BP diastolic 92–99; PULSE 93–111; RESP 17–20; TEMP 97.9–98.1; O2SAT 92–98
[2025-01-29] MEDS: MORPHINE SULFATE INJ 2 MG/ml SYRG IV PRN (01:21)
--- NOTE | 2025-01-29 07:05 | DVHPN2 ---
Progress Note - Dictate Date Seen: Jan 29, 2025 Medical Necessity Reason Pt with a Central, PICC or Fol: No vital signs Vital Sign Date Time Temp Pulse Resp B/P (MAP) Pulse Ox O2 Delivery O2 Flow Rate FiO2 01/29/25 05:00 97.9 94 17 198/92 (127) 94 97.9 01/28/25 20:00 Room Air* 0 21 Total Intake and Output 01/28/25 01/28/25 01/29/25 15:00 23:00 07:00 Intake Total 0 ml 100 ml Output Total 300 ml 300 ml Balance -300 ml -200 ml medications Current Medications Medications Dose Ordered Sig/Abilio Route Start Time Stop Time Status Last Admin Dose Admin Nitroglycerin 0.4 mg Q5MINP PRN SL 01/25/25 11:15 Morphine Sulfate 2 mg Q30M PRN IV 01/25/25 11:15 Pantoprazole Sodium 40 mg BID PO 01/25/25 22:00 Sucralfate 1 gm QIDACHS PO 01/25/25 11:30 Amlodipine Besylate 10 mg DAILY PO 01/26/25 10:00 Hold Aspirin 81 mg DAILY PO 01/26/25 10:00 Benazepril HCl 40 mg DAILY PO 01/26/25 10:00 Clonidine HCl 0.2 mg BID PO 01/25/25 22:00 Ferrous Sulfate 325 mg TIDWM PO 01/25/25 18:00 Piperacillin Sod/ Tazobactam Sod 100 ml @ 100 mls/hr Q8H IV 01/25/25 20:00 01/29/25 04:27 100 MLS/HR Labetalol HCl 20 mg Q4HPRN PRN IV 01/25/25 16:30 01/29/25 01:20 20 MG Diagnostic Test (Pha) 1 strip ACHS 01/26/25 17:00 01/29/25 06:46 1 STRIP Insulin Human Regular HS SC 01/26/25 22:00 01/26/25 22:16 2 UNITS Insulin Human Regular AC SC 01/26/25 17:00 01/28/25 12:15 6 UNITS Dextrose 50 ml UD PRN IV 01/26/25 12:00 Sodium Chloride 1,000 ml @ 100 mls/hr Q10H IV 01/26/25 14:30 01/26/25 17:42 100 MLS/HR Nifedipine 60 mg DAILY PO 01/27/25 10:00 Sertraline HCl 50 mg DAILY PO 01/26/25 16:15 Albuterol 2.5 mg Q4HPRN PRN NEB 01/26/25 16:15 Ipratropium [place] 0.5 mg Q4HPRN PRN NEB 01/26/25 16:15 Guaifenesin/ Dextromethorphan 10 ml Q4HP PRN PO 01/26/25 16:15 Atorvastatin Calcium 80 mg HS PO 01/27/25 22:00 Lorazepam 1 mg ONCE PRN IV 01/26/25 23:45 Morphine Sulfate 2 mg Q3HPRN PRN IV 01/27/25 09:15 01/29/25 01:21 2 MG Hydralazine HCl 10 mg Q6HP PRN IV 01/27/25 12:00 01/28/25 22:03 10 MG laboratory and microbiology Laboratory Tests 01/27/25 11:05 01/26/25 06:20 Test 01/27/25 11:05 Range/Units Serum Glucose 166 H 74-106 mg/dL Assessment/Plan Patient is a 69-year-old gentleman who presented with nausea/vomiting. Was admitted with high blood pressure/hypertensive emergency. It is of note that the patient was recently in the hospital and was found to have CVA. At that point the patient was transferred to high level of care for possible intervention for intracranial vascular stenosis. Cardiology was involved for cardiac aspects of care. There is no report of recent chest pain/loss of consciousness. Morbidly obese. Not in acute distress. Not using accessory muscles of breathing. No JVD. Speaks slowly. Mucosa is pink and wet. No goiter. No carotid bruit. Lungs are clear to auscultation. Cardiac: Regular, no thrill/gallop. Abdomen is soft. There is no gross mass. Bowel sound is positive. Dorsalis pedis is 2+ bilateral Past medical history includes hypertension, diabetes mellitus, morbid obesity, history of CVA, repeated (last one: relatively recent), intracranial vascular stenosis, CKD, old history of GI bleeding anemia, GERD, hyperlipidemia, pancreatitis, hiatal hernia, bladder diverticuli and old history of hepatitis-C. Does have history of smoking. Denies alcohol and drug abuse. Family history is positive for hypertension/CVA and heart murmur Echocardiogram of August 03, 2023 had reported mild concentric left ventricular hypertrophy, aortic sclerosis, ejection fraction of 65-70% and no vegetation Echocardiogram of August 2024 revealed ejection fraction of 60-65% Echocardiogram of December 10, 2024 reported concentric left ventricular hypertrophy, LVEF of 60-65%, trace MR CLAUDY of December 12, 2024 reported ejection fraction of 65% and no cardiac source for emboli WBC: 13.5 - 11.9 Creatinine: 1.86 - 2.24 - 2.18 Potassium: 4.3 - 4.3 - 4.0 Troponin (high sensitive): Chest x-ray revealed: IMPRESSION: No acute intrathoracic abnormality CT of the head revealed: IMPRESSION: No acute intracranial abnormality. Abdomen/pelvic CT scan revealed: IMPRESSION: No acute intraabdominal abnormality. Stomach containing hiatal hernia. Mild colonic diverticulosis. Normal appendix. MRI of brain reported: IMPRESSION: Focus of acute infarct over the right prasad radiata and inferior to the left basal ganglia. CT of chest reported: IMPRESSION: No acute intrathoracic abnormality. CT of Neck reported: MPRESSION: Limited examination secondary to lack of intravenous contrast administration. There is diffuse thickening of the esophagus. Clinical correlation advised. EGD could be considered to further evaluate if clinically indicated. EKG reveals NSR, non-specific ST T changes Tele reveals sinus rhythm/sinus tachycardia Patient is a 69-year-old gentleman who presented with nausea/vomiting. He is poor historian. Does have recent history of pancreatitis which could have contributed to the clinical picture? Does have recent history of CVA and is having poor functional capacity. Hypertensive emergency could have contributed to the clinical picture. There was question about swallowing capacity. Acute coronary syndrome is not considered at this point. Hypertensive emergency Nausea/vomiting Encephalopathy, metabolic/toxic/hypertensive CVA, recent Morbid obesity Diabetes mellitus Hypertension Hiatal hernia GI bleeding, history of CKD Bladder Diverticulum CVA, acute Cardiac suggestion for management: Manage on telemetry Follow-up electrolytes and kidney function tests and correct abnormalities Control hypertension, goal of BP as per Neurology Neurology following Evaluation of management of findings of CT of neck as per primary team/GI To transfer to [facility] as per Neurology Further evaluation and management depends on the above and clinical course A total of 55 minutes was spent reviewing the patient record, examining the patient, making a diagnostic and therapeutic plan, discussing this plan with medical personnel, following up on diagnostic studies and following the patient for clinical stability excluding any and all procedures. At least 50% of this time was spent in direct, [id number] contact. Thank you for allowing me to participate in this patient's care. Further recommendations will depend on patient's clinical course. Please do not hesitate to contact me if you have any questions or concerns. This medical document was created using electronic medical record system with [employer] computerized dictation system. Although this document has been carefully reviewed, there may still be some phonetic and typographical errors. These areas are purely typographical due to the imperfection of the software programs, and do not reflect any compromise in the patient's medical care. Dietary Evaluation Review Comments: 1) Advance diet to [id number] + renal specific 60gm protein + cardiac Msoft as medically feasible 2) Continue current plan of care Expected Outcomes/Goals: Pt will meet >75% estimated needs Fu 2-3 days Plan discussed with: Patient, Other (nurse) NEVAEH FALCON MD Jan 29, 2025 07:05
--- NOTE | 2025-01-29 09:50 | DVHPN2 ---
Progress Note Date Seen: Jan 29, 2025 Resident Creating Document: REYMUNDO JIMENEZ RESIDENT Medical Necessity Reason Pt with a Central, PICC or Fol: No Subjective Review of Systems Patient was examined at bedside, patient is alert and oriented x4, he is barely talking and looks weak. Hypernatremia she will be managed with fluid correction 0.45% normal saline. Neurology on board Consider physical therapy Review of Systems: HEENT:Normal, CVS:Normal, RESPIRATORY:Normal, GI:Normal, :Normal, MSK:Normal, NEURO:Normal Other Systems: Patient seen and examined by myself today in follow-up with the medicine resident I agree with the assessment and plan at the bedside Objective vital signs Vital Sign Date Time Temp Pulse Resp B/P (MAP) Pulse Ox O2 Delivery O2 Flow Rate FiO2 01/29/25 09:31 155/98 01/29/25 09:29 93 01/29/25 09:00 97.9 18 97 97.9 01/29/25 08:30 Room Air* 0 21 Total Intake and Output 01/28/25 01/28/25 01/29/25 15:00 23:00 07:00 Intake Total 0 ml 100 ml Output Total 300 ml 300 ml Balance -300 ml -200 ml medications Current Medications Medications Dose Ordered Sig/Abilio Route Start Time Stop Time Status Last Admin Dose Admin Nitroglycerin 0.4 mg Q5MINP PRN SL 01/25/25 11:15 Morphine Sulfate 2 mg Q30M PRN IV 01/25/25 11:15 Pantoprazole Sodium 40 mg BID PO 01/25/25 22:00 Sucralfate 1 gm QIDACHS PO 01/25/25 11:30 Amlodipine Besylate 10 mg DAILY PO 01/26/25 10:00 Hold Aspirin 81 mg DAILY PO 01/26/25 10:00 Benazepril HCl 40 mg DAILY PO 01/26/25 10:00 Clonidine HCl 0.2 mg BID PO 01/25/25 22:00 Ferrous Sulfate 325 mg TIDWM PO 01/25/25 18:00 Piperacillin Sod/ Tazobactam Sod 100 ml @ 100 mls/hr Q8H IV 01/25/25 20:00 01/29/25 04:27 100 MLS/HR Labetalol HCl 20 mg Q4HPRN PRN IV 01/25/25 16:30 01/29/25 07:09 20 MG Diagnostic Test (Pha) 1 strip ACHS 01/26/25 17:00 01/29/25 06:46 1 STRIP Insulin Human Regular HS SC 01/26/25 22:00 01/26/25 22:16 2 UNITS Insulin Human Regular AC SC 01/26/25 17:00 01/28/25 12:15 6 UNITS Dextrose 50 ml UD PRN IV 01/26/25 12:00 Sodium Chloride 1,000 ml @ 100 mls/hr Q10H IV 01/26/25 14:30 01/26/25 17:42 100 MLS/HR Nifedipine 60 mg DAILY PO 01/27/25 10:00 Sertraline HCl 50 mg DAILY PO 01/26/25 16:15 Albuterol 2.5 mg Q4HPRN PRN NEB 01/26/25 16:15 Ipratropium [place] 0.5 mg Q4HPRN PRN NEB 01/26/25 16:15 Guaifenesin/ Dextromethorphan 10 ml Q4HP PRN PO 01/26/25 16:15 Atorvastatin Calcium 80 mg HS PO 01/27/25 22:00 Lorazepam 1 mg ONCE PRN IV 01/26/25 23:45 Morphine Sulfate 2 mg Q3HPRN PRN IV 01/27/25 09:15 01/29/25 01:21 2 MG Hydralazine HCl 10 mg Q6HP PRN IV 01/27/25 12:00 01/28/25 22:03 10 MG Examination: GENERAL:Normal, HEENT:Normal, NECK:Normal, LUNGS:Normal, CVS:Normal, ABDOMEN:Normal, MSK:Abnormal, SKIN:Normal, NEURO:Abnormal, :Normal laboratory and microbiology Laboratory Tests 01/27/25 11:05 01/26/25 06:20 Test 01/27/25 11:05 Range/Units Serum Glucose 166 H 74-106 mg/dL Microbiology Date/Time Source Procedure Growth Status 01/27/25 01:20 Blood Blood Culture - Preliminary Resulted 01/25/25 15:50 Nose MRSA Screen - Final Complete Problem List/Assessment/Plan Problem List/Assessment/Plan Assessment: Acute infarct over the right prasad radiata and inferior to the left basal ganglia. Acute kidney injury on chronic kidney disease stage IIIB likely due to hypertensive emergency/volume depletion due to vomiting Resistant hypertension ?sympathetic overdrive post stroke? CKD related secondary hyperparathyroidism Persistent Hypernatremia Mild hyperchloremia Diabetic nephropathy History of stroke 2 weeks ago Plan: Continuous clinical research monitor Urine sodium urine osmolality, monitor sodium trends closely. Monitor volume status and blood pressure control Adjust antihypertensive medication based on renal function Patient was started on hydralazine 10 mg p.o. Neurology on board consider physical therapy case discussed with goals of care discussed with the patient and for 24 minutes code status: full code Plan discussed with: Patient My Orders My Orders Orders - REYMUNDO JIMENEZ Procedure Category Date Status Time Urine Sodium LAB 01/28/25 In Process 14:09 Osmolality Urine LAB 01/28/25 In Process 14:09 Dietary Evaluation Review Comments: 1) Advance diet to [id number] + renal specific 60gm protein + cardiac Msoft as medically feasible 2) Continue current plan of care Expected Outcomes/Goals: Pt will meet >75% estimated needs Fu 2-3 days REYMUNDO JIMENEZ Jan 29, 2025 09:50 LAVELLE CASTELLON MD Jan 29, 2025 14:16
--- NOTE | 2025-01-29 14:28 | DVHPN2 ---
Progress Note - Dictate Date Seen: Jan 29, 2025 Medical Necessity Reason Pt with a Central, PICC or Fol: No Subjective Mr. Goldsmith is a 69 years old right-handed gentleman with a history of hypertension, diabetes, dyslipidemia, he came to the [facility] on 0 01/25/2025 with a chief complaint of hypertension, nausea, vomiting. I have seen and examined the patient, I have discussed with his nurse, he was awake, looks weak, oriented times 2, he does not want to talk I have talked to Dr. Braden from the [facility], he was to reviewed the reports and will decide if he was to accept 0309PM, I presented the case to another neurologist from the [facility] and he was to discuss the case with stroke team 0403 PM, talked to Dr. Huizar ([phone]), a physician of his insurance, she to try [facility] or other hospitals the insurance contracted with I have talked to his RN, our social service Urinalysis, 01/26/2025: WBC: 3, urine leukocyte esterase: Negative WBC/HB/PLT/MCV, 01/26/2025: 11.9/13.5/208/91.1 Na 01/27/25: 150 HGB A1c, 07/2023: 6.1, 12/09/2024: 7.6 BUN/CR, 09/03/2024: 22/1.81, 12/09/2024: 12/1.62, 02/25/2025: 17/2.24 GFR, 01/26/2025: 31 Liver function tests, 01/26/2025: Unremarkable TG/HDL/LDL/HDL, 12/09/2024: 172/277/203/46 Vitamin B12, 04/2024: 622 TSH, 04/2020 4:2.29 CLAUDY, 12/12/2024: No evidence cardiac emboli source Echocardiogram, 12/10/2024: LVEF was 60-65%. Carotid Doppler, 09/04/2025: No hemodynamically significant stenosis within the carotid arteries MRI head, 08/03/2023: No acute findings. Small vessel chronic ischemic changes MRI head, 09/04/2024: Few small foci of acute ischemia, suspect embolic infarcts. Clinical correlation and continued follow-up is recommended. Consider further evaluation with CTA or MRA of the head and neck MRI head, 12/09/2024: 1. Small foci of acute ischemia in the right thalamus and left parietal cortex. No intracranial hemorrhage. 2. Extensive chronic microvascular ischemic changes, advanced for patient's age. MRI head, 12/13/2024: 1. Acute infarcts in the right prasad radiata , left parietal subcortical region, posteromedial left temporal lobe. Given the bilaterality, correlate for thromboembolic, vasospastic etiology 2. Moderate to advanced chronic microvascular ischemic changes. 3. Mild global cerebral volume loss (the right basal ganglia acute stroke is enlarged, new strokes in the left parietal lobe) MRI head 01/27/2025: Focus of acute infarct over the right prasad radiata and inferior to the left basal ganglia MRA brain, neck, 12/09/2024: 1. High-grade stenosis in the left intracranial ICA. 2. Short-segment occlusion of distal M2 segment of the left MCA. 3. Short- segment moderate stenosis of the proximal A2 segment of the left GILMA. 4. Short- segment occlusion of A3 segment of the right GILMA. 5. Moderate stenosis of the proximal basilar artery. 6. Hypoplastic right vertebral artery short-segment foci of high-grade stenosis and occlusion of the V3 segment vital signs Vital Sign Date Time Temp Pulse Resp B/P (MAP) Pulse Ox O2 Delivery O2 Flow Rate FiO2 01/29/25 13:00 98.0 95 18 153/93 (113) 98 98.0 01/29/25 09:04 Room Air 0.0 01/29/25 09:04 21 Total Intake and Output 01/28/25 01/28/25 01/29/25 15:00 23:00 07:00 Intake Total 0 ml 100 ml Output Total 300 ml 300 ml Balance -300 ml -200 ml medications Current Medications Medications Dose Ordered Sig/Abilio Route Start Time Stop Time Status Last Admin Dose Admin Nitroglycerin 0.4 mg Q5MINP PRN SL 01/25/25 11:15 Morphine Sulfate 2 mg Q30M PRN IV 01/25/25 11:15 Pantoprazole Sodium 40 mg BID PO 01/25/25 22:00 Sucralfate 1 gm QIDACHS PO 01/25/25 11:30 Amlodipine Besylate 10 mg DAILY PO 01/26/25 10:00 Hold Aspirin 81 mg DAILY PO 01/26/25 10:00 Benazepril HCl 40 mg DAILY PO 01/26/25 10:00 Clonidine HCl 0.2 mg BID PO 01/25/25 22:00 Ferrous Sulfate 325 mg TIDWM PO 01/25/25 18:00 Piperacillin Sod/ Tazobactam Sod 100 ml @ 100 mls/hr Q8H IV 01/25/25 20:00 01/29/25 11:43 100 MLS/HR Labetalol HCl 20 mg Q4HPRN PRN IV 01/25/25 16:30 01/29/25 07:09 20 MG Diagnostic Test (Pha) 1 strip ACHS 01/26/25 17:00 01/29/25 11:43 1 STRIP Insulin Human Regular HS SC 01/26/25 22:00 01/26/25 22:16 2 UNITS Insulin Human Regular AC SC 01/26/25 17:00 01/29/25 12:09 6 UNITS Dextrose 50 ml UD PRN IV 01/26/25 12:00 Sodium Chloride 1,000 ml @ 100 mls/hr Q10H IV 01/26/25 14:30 01/26/25 17:42 100 MLS/HR Nifedipine 60 mg DAILY PO 01/27/25 10:00 Sertraline HCl 50 mg DAILY PO 01/26/25 16:15 Albuterol 2.5 mg Q4HPRN PRN NEB 01/26/25 16:15 Ipratropium [place] 0.5 mg Q4HPRN PRN NEB 01/26/25 16:15 Guaifenesin/ Dextromethorphan 10 ml Q4HP PRN PO 01/26/25 16:15 Atorvastatin Calcium 80 mg HS PO 01/27/25 22:00 Lorazepam 1 mg ONCE PRN IV 01/26/25 23:45 Morphine Sulfate 2 mg Q3HPRN PRN IV 01/27/25 09:15 01/29/25 01:21 2 MG Hydralazine HCl 10 mg Q6HP PRN IV 01/27/25 12:00 01/28/25 22:03 10 MG objective General: the patient is well developed and nourished. No acute distress. MENTAL STATUS: Awake and alert. Oriented to person, place, time and general circumstances. Able to give personal history SPEECH, LANGUAGE, HIGHER CORTICAL FUNCTION: no aphasia or dysathria. CRANIAL NERVES: Pupils are equal, round and reactive. EOMs full and conjugate. No nystagmus. Facial sensation intact in all three divisions bilaterally. Mandibular strength intact. Facial muscles symmetrical and strength intact. SENSATION: Sensation to touch and pinprick is normal. MOTOR: Normal tone in the upper and lower extremity. Normal muscle bulk. No fasciculations. No abnormal movements or posturing. He can move the arms and legs REFLEXES: Deep tendon reflexes are symmetrical. No pathological reflexes. CEREBELLAR/COORDINATION: Finger to nose is normal bilaterally. GAIT/STATION: deferred laboratory and microbiology Laboratory Tests 01/27/25 11:05 01/26/25 06:20 Test 01/27/25 11:05 Range/Units Serum Glucose 166 H 74-106 mg/dL Problem List Acute nausea, vomiting, severely elevated blood pressure, general weakness Hypertension emergency Posterior reversible encephalopathy Multiple strokes in 08/2024, 11/2024 x2 times,01/27/25, with unknown embolic source Left ICA high-grade stenosis History of GI bleeding with syncope Dysphagia, ? secondary to bilateral stroke ? Depression Assessment/Plan Monitoring Supportive treatment Telemetry Aspirin 81 mg daily Lipitor 80 mg daily Protonix, 40 mg daily DVT prophylaxis/SCD Physical therapy, up to chair after blood pressure is stabilize Consider tele psych consultation later Transfer to higher level care Re: Acute embolic strokes in 08/2024, 11/2023 x 2 times, 01/2024 Further address left high-grade ICA stenosis as outpatient This medical document was created using an electronic medical record system with [employer] dictation system. Although this document has been carefully reviewed, there may still be some phonetic and typographical errors. These areas are purely typographical due to imperfections of the software programs, and do not reflect any compromise in the patient's medical care. Prognosis poor Dietary Evaluation Review Comments: 1) Advance diet to [id number] + renal specific 60gm protein + cardiac Msoft as medically feasible 2) Continue current plan of care Expected Outcomes/Goals: Pt will meet >75% estimated needs Fu 2-3 days Plan discussed with: Other Total Time (mins): 45 GRACIE UMAÑA MD Jan 29, 2025 14:28
--- NOTE | 2025-01-29 14:55 | DVHPN2 ---
Progress Note - Dictate Date Seen: Jan 30, 2025 Medical Necessity Reason Pt with a Central, PICC or Fol: No vital signs Vital Sign Date Time Temp Pulse Resp B/P (MAP) Pulse Ox O2 Delivery O2 Flow Rate FiO2 01/29/25 13:00 98.0 95 18 153/93 (113) 98 98.0 01/29/25 09:04 Room Air 0.0 01/29/25 09:04 21 Total Intake and Output 01/28/25 01/28/25 01/29/25 15:00 23:00 07:00 Intake Total 0 ml 100 ml Output Total 300 ml 300 ml Balance -300 ml -200 ml medications Current Medications Medications Dose Ordered Sig/Abilio Route Start Time Stop Time Status Last Admin Dose Admin Nitroglycerin 0.4 mg Q5MINP PRN SL 01/25/25 11:15 Morphine Sulfate 2 mg Q30M PRN IV 01/25/25 11:15 Pantoprazole Sodium 40 mg BID PO 01/25/25 22:00 Sucralfate 1 gm QIDACHS PO 01/25/25 11:30 Amlodipine Besylate 10 mg DAILY PO 01/26/25 10:00 Hold Aspirin 81 mg DAILY PO 01/26/25 10:00 Benazepril HCl 40 mg DAILY PO 01/26/25 10:00 Clonidine HCl 0.2 mg BID PO 01/25/25 22:00 Ferrous Sulfate 325 mg TIDWM PO 01/25/25 18:00 Piperacillin Sod/ Tazobactam Sod 100 ml @ 100 mls/hr Q8H IV 01/25/25 20:00 01/29/25 11:43 100 MLS/HR Labetalol HCl 20 mg Q4HPRN PRN IV 01/25/25 16:30 01/29/25 07:09 20 MG Diagnostic Test (Pha) 1 strip ACHS 01/26/25 17:00 01/29/25 11:43 1 STRIP Insulin Human Regular HS SC 01/26/25 22:00 01/26/25 22:16 2 UNITS Insulin Human Regular AC SC 01/26/25 17:00 01/29/25 12:09 6 UNITS Dextrose 50 ml UD PRN IV 01/26/25 12:00 Sodium Chloride 1,000 ml @ 100 mls/hr Q10H IV 01/26/25 14:30 01/26/25 17:42 100 MLS/HR Nifedipine 60 mg DAILY PO 01/27/25 10:00 Sertraline HCl 50 mg DAILY PO 01/26/25 16:15 Albuterol 2.5 mg Q4HPRN PRN NEB 01/26/25 16:15 Ipratropium [place] 0.5 mg Q4HPRN PRN NEB 01/26/25 16:15 Guaifenesin/ Dextromethorphan 10 ml Q4HP PRN PO 01/26/25 16:15 Atorvastatin Calcium 80 mg HS PO 01/27/25 22:00 Lorazepam 1 mg ONCE PRN IV 01/26/25 23:45 Morphine Sulfate 2 mg Q3HPRN PRN IV 01/27/25 09:15 01/29/25 01:21 2 MG Hydralazine HCl 10 mg Q6HP PRN IV 01/27/25 12:00 01/28/25 22:03 10 MG objective General Appearance: alert, no distress HEENT: EOMI, PERRLA, normal external inspect of ears, no icterus, no nasal drainage Neck: no carotid bruit, no jugular venous distention (JVD), no lymphadenopathy Chest: normal thorax Respiratory: clear to auscultation, normal air movement Cardiovascular: regular rate and rhythm, no diastolic murmur, no jugular venous distention (JVD), no rub, no systolic murmur Abdominal: soft, no hepatomegaly, no mass, no splenomegaly, no tenderness Genitourinary: grossly normal external Musculoskeletal: no joint tenderness, no swelling Extremities: normal pulses, no calf tenderness, no clubbing, no cyanosis, no edema Skin: no bruising, no jaundice, no rash Neurological: alert, No focal deficit laboratory and microbiology Laboratory Tests 01/27/25 11:05 01/26/25 06:20 Test 01/27/25 11:05 Range/Units Serum Glucose 166 H 74-106 mg/dL Problem List - Left internal carotid stenosis Medication, monitoring -Chronic Gonzalez catheter Monitor -Hypertensive urgency Antihypertensives, monitoring -DM type II with hyperglycemia Insulin sliding scale, diet, monitoring -CKD IIIb Daily labs, medication, monitoring - History of CVA monitoring Assessment/Plan Subjective Patient is awake and alert. Objective Patient is experiencing persistent dysphagia. MRI shows acute CVA. Patient has had multiple CVAs this year and is known to have left internal carotid artery stenosis. He was previously sent to [facility] where no carotid endarterectomy was done. Patient was started on aspirin and Plavix and was sent home by Perla per Melida. I updated her regarding the current plan of care. Patient was evaluated by Dr. Balderas, who is recommending transfer again to a higher level of care. Dr. Balderas spoke with Dr. Art who has accepted the patient. Patient will need a left internal carotid arterectomy due to recurrent CVA and patients symptoms are progressively getting worse. Patient states he is having difficulty swallowing. Plan Continue current treatment. Plan to discharge to [facility] for carotid endarterectomy evaluation and recurrent CVA workup. Dietary Evaluation Review Comments: 1) Advance diet to [id number] + renal specific 60gm protein + cardiac Msoft as medically feasible 2) Continue current plan of care Expected Outcomes/Goals: Pt will meet >75% estimated needs Fu 2-3 days Plan discussed with: Patient, Other VITOR SCHULTZ CRITICAL CARE NURSE PRACTITIONER Jan 29, 2025 14:55
--- NOTE | 2025-01-29 22:19 | DVHPN2 ---
Progress Note - Dictate Date Seen: Jan 29, 2025 Medical Necessity Reason Pt with a Central, PICC or Fol: No Subjective No new complaints, sleeping comfortably Tolerating a cardiac diet Patient has an underlying large complex hiatal hernia that causes his upper GI symptoms vital signs Vital Sign Date Time Temp Pulse Resp B/P (MAP) Pulse Ox O2 Delivery O2 Flow Rate FiO2 01/29/25 21:00 97.9 98 18 143/99 (114) 97 97.9 01/29/25 16:45 0.0 21 01/29/25 09:04 Room Air Total Intake and Output 01/28/25 01/28/25 01/29/25 15:00 23:00 07:00 Intake Total 0 ml 100 ml Output Total 300 ml 300 ml Balance -300 ml -200 ml medications Current Medications Medications Dose Ordered Sig/Abilio Route Start Time Stop Time Status Last Admin Dose Admin Nitroglycerin 0.4 mg Q5MINP PRN SL 01/25/25 11:15 Morphine Sulfate 2 mg Q30M PRN IV 01/25/25 11:15 Pantoprazole Sodium 40 mg BID PO 01/25/25 22:00 Sucralfate 1 gm QIDACHS PO 01/25/25 11:30 Amlodipine Besylate 10 mg DAILY PO 01/26/25 10:00 Hold Aspirin 81 mg DAILY PO 01/26/25 10:00 Benazepril HCl 40 mg DAILY PO 01/26/25 10:00 Clonidine HCl 0.2 mg BID PO 01/25/25 22:00 Ferrous Sulfate 325 mg TIDWM PO 01/25/25 18:00 Piperacillin Sod/ Tazobactam Sod 100 ml @ 100 mls/hr Q8H IV 01/25/25 20:00 01/29/25 20:51 100 MLS/HR Labetalol HCl 20 mg Q4HPRN PRN IV 01/25/25 16:30 01/29/25 07:09 20 MG Diagnostic Test (Pha) 1 strip ACHS 01/26/25 17:00 01/29/25 17:59 1 STRIP Insulin Human Regular HS SC 01/26/25 22:00 01/26/25 22:16 2 UNITS Insulin Human Regular AC SC 01/26/25 17:00 01/29/25 18:11 6 UNITS Dextrose 50 ml UD PRN IV 01/26/25 12:00 Sodium Chloride 1,000 ml @ 100 mls/hr Q10H IV 01/26/25 14:30 01/26/25 17:42 100 MLS/HR Nifedipine 60 mg DAILY PO 01/27/25 10:00 Sertraline HCl 50 mg DAILY PO 01/26/25 16:15 Albuterol 2.5 mg Q4HPRN PRN NEB 01/26/25 16:15 Ipratropium [place] 0.5 mg Q4HPRN PRN NEB 01/26/25 16:15 Guaifenesin/ Dextromethorphan 10 ml Q4HP PRN PO 01/26/25 16:15 Atorvastatin Calcium 80 mg HS PO 01/27/25 22:00 Lorazepam 1 mg ONCE PRN IV 01/26/25 23:45 Morphine Sulfate 2 mg Q3HPRN PRN IV 01/27/25 09:15 01/29/25 01:21 2 MG Hydralazine HCl 10 mg Q6HP PRN IV 01/27/25 12:00 01/28/25 22:03 10 MG objective General Appearance: alert, no distress HEENT: EOMI, PERRLA, normal external inspect of ears, no icterus, no nasal drainage Neck: no carotid bruit, no jugular venous distention (JVD), no lymphadenopathy Chest: normal thorax Respiratory: clear to auscultation, normal air movement Cardiovascular: regular rate and rhythm, no diastolic murmur, no jugular venous distention (JVD), no rub, no systolic murmur Abdominal: soft, no hepatomegaly, no mass, no splenomegaly, no tenderness Genitourinary: grossly normal external Musculoskeletal: no joint tenderness, no swelling Extremities: normal pulses, no calf tenderness, no clubbing, no cyanosis, no edema Skin: no bruising, no jaundice, no rash Neurological: alert, No focal deficit laboratory and microbiology Laboratory Tests 01/27/25 11:05 01/26/25 06:20 Test 01/27/25 11:05 Range/Units Serum Glucose 166 H 74-106 mg/dL BRAIN MRI IMPRESSION: Focus of acute infarct over the right prasad radiata and inferior to the left basal ganglia. Problems(with codes): (1) Hepatitis C antibody positive in blood (2) Hypertensive emergency (3) CVA (cerebral vascular accident) (4) N&V (nausea and vomiting) (5) Dysphagia (6) Hiatal hernia (7) Hypertensive urgency (8) Generalized weakness Prognosis Plan Patient is referred to higher level of care from neurologist Awaiting transfer tonight No acute GI intervention at this time Continue Protonix and diet as tolerated for now Dietary Evaluation Review Comments: 1) Advance diet to [id number] + renal specific 60gm protein + cardiac Msoft as medically feasible 2) Continue current plan of care Expected Outcomes/Goals: Pt will meet >75% estimated needs Fu 2-3 days Plan discussed with: Other (Nurse) KAREL PRITCHARD MD Jan 29, 2025 22:19
--- NOTE | 2025-02-04 19:02 | DVHDS2 ---
Discharge Summary Date of Admission Jan 25, 2025 at 11:02 Date of Discharge: Jan 29, 2025 Labs/Diagnostic Data: Laboratory Results Test 01/29/25 21:49 01/29/25 07:15 01/27/25 11:05 01/26/25 15:55 POC Glucose 176 mg/dl (70-106) Urine Osmolality 678 mOsm/kg Urine Sodium 24 mmol/L (40-220) Sodium Level 150 mmol/L (136-145) Potassium Level 4.0 mmol/L (3.5-5.1) Chloride Level 113 mmol/L (98-107) Carbon Dioxide Level 25 mmol/L (20-31) Anion Gap 12 (5-15) Blood Urea Nitrogen 21 mg/dL (9-23) Creatinine 2.18 mg/dL (0.700-1.30) Glomerular Filtration Rate Calc 32 mL/min (>90) BUN/Creatinine Ratio 9.6 (10.0-20.0) Serum Glucose 166 mg/dL (74-106) Calcium Level 10.0 mg/dL (8.7-10.4) Total Bilirubin 0.7 mg/dL (0.2-1.0) Aspartate Amino Transferase (AST) 14 U/L (13-40) Alanine Aminotransferase (ALT) 17 U/L (7-40) Alkaline Phosphatase 74 U/L (46-116) Total Protein 7.2 g/dL (5.7-8.2) Albumin 4.3 g/dL (3.2-4.8) Vitamin D 25-Hydroxy 11.3 ng/mL (30.0-100) Test 01/26/25 15:00 01/26/25 06:20 01/25/25 09:48 01/25/25 06:33 Urine Color Light-yellow (Yellow) Urine Clarity Clear (Clear) Urine pH 6.0 (5.0-9.0) Urine Specific [place] 1.035 (1.001-1.035) Urine Protein 2+ (Negative) Urine Ketones 1+ (Negative) Urine Blood 1+ /uL (Negative) Urine Nitrite Negative (Negative) Urine Bilirubin Negative (Negative) Urine Urobilinogen Normal mg/dL (Negative) Urine Leukocyte Esterase Negative /uL (Negative) Urine RBC 15 /hpf (0 - 3) Urine Microscopic WBC 3 /HPF (0-3) Urine Squamous Epithelial Cells None seen /hpf (<5) Urine Bacteria None seen /hpf (None Seen) Urine Creatinine 101.64 mg/dL (30.0-125.0) Urine Protein/Creatinine Ratio 2.45 Urine Glucose 4+ mg/dL (Normal) Urine Total Protein 249.3 mg/dL (1-14) White Blood Count 11.9 10^3/uL (4.4-10.8) Red Blood Count 4.49 10^6/uL (4.5-5.90) Hemoglobin 13.5 g/dL (13.5-17.5) Hematocrit 40.9 % (41.0-53.0) Mean Corpuscular Volume 91.1 fL (80.0-100.0) Mean Corpuscular Hemoglobin 30.0 pg (28.0-32.0) Mean Corpuscular Hemoglobin Concent 32.9 g/dL (32.0-36.0) Red Cell Distribution Width 15.6 % (11.8-14.3) Platelet Count 208 10^3/uL (140-450) Mean Platelet Volume 8.9 fL (6.9-10.8) Neutrophils (%) (Auto) 80.5 % (37.0-80.0) Lymphocytes (%) (Auto) 11.5 % (10.0-50.0) Monocytes (%) (Auto) 7.8 % (0.0-12.0) Eosinophils (%) (Auto) 0.1 % (0.0-7.0) Basophils (%) (Auto) 0.1 % (0.0-2.0) Neutrophils # (Auto) 9.6 10 ^3/uL (1.6-8.6) Lymphocytes # (Auto) 1.4 10 ^3/uL (0.4-5.4) Monocytes # (Auto) 0.9 10 ^3/uL (0-1.3) Eosinophils # (Auto) 0 10 ^3/uL (0-0.8) Basophils # (Auto) 0 10 ^3/uL (0-0.2) Nucleated Red Blood Cells 0.1 % Phosphorus Level 4.8 mg/dL (2.4-5.1) Magnesium Level 2.6 mg/dL (1.6-2.6) Parathyroid Hormone (Intact) 121.6 pg/mL (18.4-80.1) Troponin I High Sensitivity 30 ng/L (</=54) Prothrombin Time 10.9 sec (9.3-11.8) Prothrombin Time INR 1.03 (0.9-1.15) Activated Partial Thromboplast Time 21.4 SEC (24.5-34.5) Other Laboratory Tests 01/27/25 11:05 01/26/25 06:20 Brief Hx & Hospital Course: 69 year old male with history of CVA two weeks ago is complaining of HTN for one day. Patient also reports nausea and vomiting. Patient's blood pressure on arrival was 183/109. While in the emergency department the patient was evaluated by the provider. Patient was admitted for left carotid artery stenosis. Patient had persistent dysphagia and patient was spitting up pills. Patient was seen by GI and CT of the neck was done, MRI showed acute CVA. Patient has had multiple CVAs this year. Patient was seen by Dr. Balderas who recommended transfer to higher level of care for carotid endarterectomy evaluation and recurrent CVA workup. Patient also had hypertensive urgency and was restarted on home medications. Patient did admit to being depressed and was seen by telepsych and was started on Zoloft. Patient was cleared for discharge by Dr. Balderas. Patient will be transferred to [facility]. The patient received proper medical treatment and medications. Vital signs, Imaging and Laboratory Work was monitored. All consults recommendations were followed as provided. There were no complaints or new complaints upon discharge, all questions and concerns were answered. Patient was advised to return to the ER or call 911 if any headaches, dizziness, shortness of breath, chest pain, bleeding, fevers, or worsening of medical condition. Patient/Family was counseled about treatment plan, medications, possible side effects, patientverbalized understanding. All questions were answered to the best of my ability. The patient symptoms improved and they are okay to be DC. Condition at Discharge: Stable Final Diagnosis/Problems List Acute CVA Left carotid artery stenosis Chronic Gonzalez catheter Hypertensive urgency DM type II with hyperglycemia CKD IIIb History of CVA Discharge Disposition: Transfer to [facility] Discharge Instruct/Medications Diet: Cardiac 2g Na,low cholest Activity: No Restrictions, As Tolerated Discharge Statement: "Patient was advised to return to the ER or call 911 if any headaches, dizziness, shortness of breath, chest pain, abdominal pain, bleeding, fevers, or worsening of medical condition. Patient was counseled about treatment plan, medications, possible side effects, patientverbalized understanding. All questions were answered to the best of my ability. This discharge took greater then 30 minutes in planning, reviewing documentation, counseling the patient, and discussing with other team members." ASSESSMENT ASSESSMENT Assessment Acute CVA Left carotid artery stenosis VITOR SCHULTZ NP Feb 04, 2025 19:02
== END 2025-01-29 22:15 | disposition short-term general hospital (02) | DRG 64 ==
LOC: EDBD 04:46 → ER 04:46 → OVERFLOW 11:02 → TELE-WESTW 14:15
PROVIDERS: ADMIT Nurse Practitioner; ATTEND Nurse Practitioner
PROC: 05HA33Z Insertion of Infusion Device into Left Brachial Vein, Percutaneous Approach (ICD-10-PCS; principal; 2025-01-26)
PROC: B54NZZA Ultrasonography of Left Upper Extremity Veins, Guidance (ICD-10-PCS; 2025-01-26)
DX: I63.032 Cerebral infarction due to thrombosis of left carotid artery (principal); N17.0 Acute kidney failure with tubular necrosis; E87.0 Hyperosmolality and hypernatremia; I16.1 Hypertensive emergency; N17.9 Acute kidney failure, unspecified; I13.0 Hypertensive heart and chronic kidney disease with heart failure and stage 1 through stage 4 chronic kidney disease, or unspecified chronic kidney disease; N25.81 Secondary hyperparathyroidism of renal origin; I16.0 Hypertensive urgency; E11.22 Type 2 diabetes mellitus with diabetic chronic kidney disease; E11.65 Type 2 diabetes mellitus with hyperglycemia; N32.3 Diverticulum of bladder; N18.32 Chronic kidney disease, stage 3b; E78.5 Hyperlipidemia, unspecified; K21.9 Gastro-esophageal reflux disease without esophagitis; N40.1 Benign prostatic hyperplasia with lower urinary tract symptoms; E86.0 Dehydration; E66.01 Morbid (severe) obesity due to excess calories; F32.A Depression, unspecified; I50.9 Heart failure, unspecified; E87.8 Other disorders of electrolyte and fluid balance, not elsewhere classified; Z86.73 Personal history of transient ischemic attack (TIA), and cerebral infarction without residual deficits; Z79.82 Long term (current) use of aspirin; Z79.02 Long term (current) use of antithrombotics/antiplatelets; Z79.899 Other long term (current) drug therapy; Z82.3 Family history of stroke; Z82.49 Family history of ischemic heart disease and other diseases of the circulatory system; Z83.3 Family history of diabetes mellitus; Z68.30 Body mass index [BMI] 30.0-30.9, adult
CPT/HCPCS: 36415; 70450; 70490; 70551; 71045; 71250; 74177; 80053; 81001; 82306; 82570; 82962; 83735; 83935; 83970; 84100; 84156; 84300; 84484; 85025; 85610; 85730; 87040; 87077; 87081; 87186; 92610; 93005; 96361; 96374; 96375; 97110; 97116; 97163; 97530; G0378; J1815; J1885; J2405; J2470; J2543